=== PATIENT | male | born 1970 | race Caucasian/White ===

== ENCOUNTER 2016-11-02 09:30 | Inpatient (IN) | payer OTHER ==
[2016-11-02] MEDS ORDERED: MIDAZOLAM 2 MG/2 ML VIAL ONE (10:20)
[2016-11-02] MEDS ORDERED: ASPIRIN 325 MG TAB ONE (10:21)
[2016-11-02] MEDS ORDERED: LIDOCAINE 2% INJ 20 MG/ML (20 ML MDV) ONE (10:21)
[2016-11-02] MEDS ORDERED: ASPIRIN 325 MG TAB PO ONE (10:35)
[2016-11-02] MEDS ORDERED: MIDAZOLAM 2 MG/2 ML VIAL IV ONE (10:40)
[2016-11-02] MEDS ORDERED: VERAPAMIL 2.5 MG/ML 2 ML AMP ONE (10:41)
[2016-11-02] MEDS ORDERED: LIDOCAINE 2% INJ 20 MG/ML SQ ONE (10:45)
[2016-11-02] MEDS: VERAPAMIL SYRINGE (5 MG/10 ML) INTRAARTER ONE ×2 (10:49→11:23)
[2016-11-02] MEDS ORDERED: HYDROmorphone 2 MG/ML 1 ML SYRINGE IV ONE (10:50)
[2016-11-02] MEDS ORDERED: HYDROmorphone 2 MG/ML 1 ML SYRINGE ONE (10:50)
[2016-11-02] MEDS ORDERED: BIVALIRUDIN BOLUS 250 MG/50 ML IV ONE (10:58)
[2016-11-02] MEDS ORDERED: BIVALIRUDIN 250 MG in SODIUM CHLORIDE 0.9% 50 ML IV ONE (10:59)
[2016-11-02] MEDS ORDERED: PRASUGREL 10 MG TAB ONE (11:02)
[2016-11-02] MEDS ORDERED: PRASUGREL 10 MG TAB PO ONE (11:03)
[2016-11-02] MEDS: NITROGLYCERIN 1000MCG/10ML SYRINGE INTRACORON ONE ×2 (11:11→11:14)
[2016-11-02] MEDS ORDERED: SODIUM CHLORIDE 0.9% 1,000 ML IV ONE (11:12)
[2016-11-02] MEDS ORDERED: IOHEXOL 350 MG/ML 125ML BOTTLE INJ ONE (11:22)
[2016-11-02] MEDS ORDERED: RX INFO: IV CONTRAST WAS GIVEN 1 EACH MISC MISCELLANE PRN (11:26)
[2016-11-02] MEDS ORDERED: NITROGLYCERIN SL TABS 0.4 MG TAB SUBLINGUAL PRN (11:26)
[2016-11-02] MEDS ORDERED: ZOLPIDEM 5 MG TAB PO PRN (11:26)
[2016-11-02] MEDS ORDERED: ATROPINE SULFATE 0.1 MG/ML 10ML SYRINGE IV PRN (11:26)
[2016-11-02] MEDS ORDERED: MAG HYDROX/AL HYDROX/SIMETH 30 ML CUP PO PRN (11:26)
[2016-11-02] MEDS ORDERED: SODIUM CHLORIDE 0.9% 1,000 ML IV SCH (11:30)
[2016-11-02 11:54] LABS: Glucose,Whole Blood 271 mg/dL (75-99)
[2016-11-02] MEDS ORDERED: LORazepam 2 MG/ML SYRINGE IV PRN ×3 (14:35)
[2016-11-02] MEDS: PANTOPRAZOLE 40 MG/10 ML VIAL IVP SCH (15:06)
[2016-11-02] MEDS: NICOTINE 21MG/24HR PATCH TRANSDERM SCH ×2 (15:06→15:09)
[2016-11-02] MEDS: FOLIC ACID 1 MG TAB PO SCH (15:07)
[2016-11-02] MEDS: MULTIVITAMINS, THERA 1 EACH TAB PO SCH (15:07)
[2016-11-02 15:29] LABS: Appearance,Urine Clear (Clear); Bilirubin,Urine Negative (Negative); Glucose,Urine (UA) 4+ (Negative); Ketones,Urine Negative (Negative); Leukocyte Esterase,Urine Negative (Negative); Nitrite,Urine Negative (Negative); PH, Urine 5.5 (5.0-8.0); Particle Count 1625; Protein,Urine 2+ (Negative); RBC,Urine 6 /hpf (0-5); Specific Gravity,Urine 1.039 (1.001-1.035); Squamous Epithelial Cell,Urine <1 /hpf (0-4); UA Billing (MACRO vs. MICRO) MICRO; Urobilinogen,Urine <2.0 mg/dL (<2.0); WBC,Urine <1 /hpf (0-5)
[2016-11-02 15:54] LABS: Hemoglobin A1C 9.2 % (4.2-6.1)
[2016-11-02 17:18] LABS: Glucose,Whole Blood 455 mg/dL (75-99)
[2016-11-02 17:18] LABS: Glucose,Whole Blood 411 mg/dL (75-99)
[2016-11-02] MEDS: INSULIN LISPRO (humaLOG) 300 UNIT/3 ML VIAL SQ SCH ×2 (17:28→20:25)
[2016-11-02] MEDS: METOPROLOL TARTRATE 25 MG TAB PO SCH (19:01)
--- NOTE | 2016-11-02 19:08 | P.HPIM ---
History of Present Illness H&P Date: 11/02/16 Chief Complaint: Chest pain 46-year-old gentleman with history of diabetes mellitus, significant family medical history, ongoing tobacco use, essential hypertension initially went into [facility] with complaints of chest pain that has been ongoing for the last 3-4 days intermittently. Patient denies having any alleviating or exacerbating factors States that the pain is midsternal location last for a few minutes radiates to his neck does not associate any diaphoresis. Patient was noted to have subtle ST-T wave changes hence was triaged to [facility] for a cardiac catheterization emergently Patient underwent cardiac catheterization via the right radial artery status post PCI PTCA the final report of the catheterization is pending Patient was seen in the intensive care unit denies having headaches blurry vision chest pain difficulty breathing nausea vomiting diarrhea urinary urgency or frequency states that he does not have any pain in his right wrist Review of Systems All systems: negative (Noted in HPI) Past Medical History Past Medical History: Coronary Artery Disease (CAD), Diabetes Mellitus, GERD/ Reflux, Hyperlipidemia, Hypertension, Pneumonia, Renal Disease Additional Past Medical History / Comment(s): NIDDM type II, chronic lumbar pain , colitis, hyperlipidemia-not on RX, athrtitis bilateral hands/wrists, nephrolithiasis. History of Any Multi-Drug Resistant Organisms: None Reported Past Surgical History: Heart Catheterization With Stent, Orthopedic Surgery Additional Past Surgical History / Comment(s): 11/02/16 PCI with stent to RCA, kidney stone basketing, failed L4-L5 fusions x 2, colonoscopy. Past Anesthesia/Blood Transfusion Reactions: No Reported Reaction Date of Last Stent Placement:: 11/02/16 Smoking Status: Current every day smoker - Past Family History Father Family Medical History: Congestive Heart Failure (CHF), Coronary Artery Disease (CAD), CVA/TIA, Myocardial Infarction ([place]) Additional Family Medical History / Comment(s): Father at the age of 63 yrs. Pt doesn't recall age of father's [place]. Mother Family Medical History: Cancer Additional Family Medical History / Comment(s): Mother had multiple cancers. She is living. Medications and Allergies Home Medications Medication Instructions Recorded Confirmed Type HYDROcodone/APAP 10-325MG [[place] 1 - 2 tab PO Q6H PRN 11/02/16 11/02/16 History 10-325] Allergies Allergy/AdvReac Type Severity Reaction Status Date / Time No Known Allergies Allergy Verified 11/02/16 12:31 Physical Exam Vitals: Vital Signs Temp Pulse Resp BP Pulse Ox 11/02/16 19:00 99 20 199/91 99 11/02/16 18:00 92 15 153/85 98 11/02/16 17:00 98 23 153/85 97 11/02/16 16:00 97.6 F 89 26 H 147/92 97 11/02/16 15:00 92 16 164/93 98 11/02/16 14:30 91 18 155/99 98 11/02/16 14:00 92 20 137/84 98 11/02/16 13:30 91 15 146/84 97 11/02/16 13:15 95 21 136/81 96 11/02/16 13:00 90 19 140/92 99 11/02/16 12:45 87 14 139/86 98 11/02/16 12:30 83 20 120/83 99 11/02/16 12:00 80 20 129/87 98 11/02/16 11:50 97.6 F 82 12 129/87 97 Intake and Output 11/02/16 11/02/16 11/02/16 06:59 14:59 22:59 Intake Total 1180 660 Output Total 450 450 Balance 730 210 Intake: IV 640 20 ns 20 Intake, IV Titration 300 400 Amount Sodium Chloride 0.9% 1, 300 400 000 ml @ 100 mls/hr IV . Q10H [facility] Rx#:[id number] Oral 240 240 Output: Urine 450 450 Other: Weight 118 kg Patient Weight 11/03/16 06:59 Weight 118 kg Physical exam Gen. appearance oriented 3 in no distress Neck is supple no JVD Lungs good air entry clear to auscultation no rhonchi or wheezing Heart S1-S2 heard regular rate and rhythm no murmurs appreciated Abdomen is soft nontender no organomegaly bowel sounds are intact Neurologically cranial nerves II-12 grossly intact no focal motor or sensory deficits noted Skin no abnormalities appreciated Results Labs: Abnormal Lab Results - Last 24 Hours (Table) 11/02/16 11/02/16 11/02/16 Range/Units 11:52 14:03 15:10 POC Glucose (mg/dL) 271 H (75-99) mg/dL Hemoglobin A1c 9.2 H (4.2-6.1) % Ur Specific Banks 1.039 H (1.001-1.035) Urine Protein 2+ H (Negative) Urine Glucose (UA) 4+ H (Negative) Urine Blood Small H (Negative) Urine RBC 6 H (0-5) /hpf Urine Opiates Screen Detected H (NotDetected) 11/02/16 11/02/16 Range/Units 17:14 17:16 POC Glucose (mg/dL) 455 H 411 H (75-99) mg/dL Hemoglobin A1c (4.2-6.1) % Ur Specific Banks (1.001-1.035) Urine Protein (Negative) Urine Glucose (UA) (Negative) Urine Blood (Negative) Urine RBC (0-5) /hpf Urine Opiates Screen (NotDetected) Thrombosis Risk Factor Assmnt - Choose All That Apply Any of the Below Risk Factors Present?: Yes Each Factor Represents 1 point: Age 41-60 years, Obesity (BMI >25) Other Risk Factors: No Other congenital or acquired thrombophilia - If yes, enter type in comment: No Thrombosis Risk Factor Assessment Total Risk Factor Score: 2 Thrombosis Risk Factor Assessment Level: Low Risk Assessment and Plan Plan: #1 acute [place] #2 diabetes mellitus type 2 uncontrolled #3 ongoing tobacco use #4 hypertension Plan Hold off on oral anti-hyperglycemics will start the patient on 20 units of Levemir with NovoLog sliding scale Dual antiplatelet therapy Beta kayla and lisinopril will be started Continue monitoring the patient in the intensive care unit per STEMI protocol Vascular checks Blood pressure control
[2016-11-02 20:23] LABS: Glucose,Whole Blood 348 mg/dL (75-99)
[2016-11-02] MEDS: INSULIN DETEMIR 100 UNIT/ML 10 ML VIAL SQ SCH (20:24)
[2016-11-02] MEDS: THIAMINE 100 MG TAB PO SCH (20:24)
[2016-11-02] MEDS: ATORVASTATIN 80 MG TAB PO SCH (20:24)
--- NOTE | 2016-11-02 21:57 | CC ---
DATE OF SERVICE: 11/02/2016 Performing physician: Brock Mallory M.D., door technician. PROCEDURE PERFORMED: 1. Selective right and left coronary angiogram. 2. Successful stenting of the mid right coronary artery using a 3.0 x 23 mm Xience JESÚS with a good angiographic results. 3. Left heart catheterization. 4. Left ventriculography. INDICATION: This is a pleasant 46-year-old gentleman who is diabetic as well as a smoker who presented to the emergency room at [facility] complaining of chest discomfort. The EKG concerning for elevation MRI inferiorly. He was brought into to [facility] to undergo a heart catheterization. Approach: Right radial artery. COMPLICATIONS: None. Level of sedation: Moderate with sedation length of 37 minutes. PROCEDURE DESCRIPTION: After obtaining an informed consent, the patient was brought to the cardiac solar lab technician. Right radial artery was cannulated using micropuncture technique. Micropuncture wire passed easily. Then I placed a 6 Arabic sheath in the right radial artery. Subsequently, I did gave the patient 2 mg and 3000 units of heparin IV. Also it gives to give 2 mg Verapamil IA without heparin. After that, I did selective right and left coronary angiogram using JR4 and JL 3.5 catheters. After that, I did intervene on the RCA. Please see separate paragraph for that. After that, I did left heart catheterization, left ventriculography using a 6 Arabic pigtail catheter. The procedure was completed without any complication. SELECTIVE CORONARY ANGIOGRAM: RIGHT CORONARY ARTERY: The right coronary artery is a large-caliber vessel and it is a dominant vessel. The proximal RCA appeared to have mild disease only. The mid RCA has a lesion that seems to be in the range of 90% with a thrombus which likely represents a plaque rupture and thrombus formation. The distal RCA has another lesion, seems to be in the range of 70% but after the intervention it opened up a little better. The RCA bifurcates into PDA and PLV branches. The PLV branch appeared to have severe disease in the proximal portion and the PLV branch appeared to have also severe disease in the proximal portion but does not feed a large territory. LEFT MAIN: The left main is angiographically normal. It has mild disease only. It bifurcates into the left circumflex and left anterior descending artery. CIRCUMFLEX CORONARY ARTERY: The left circumflex is a large-caliber vessel and it is a nondominant vessel. The proximal left circumflex appeared to be angiographically normal and gives rises into the first obtuse marginal branch, which is an intermediate caliber vessel with severe disease in the proximal portion. The mid left circumflex has a long tubular lesion, seems to be in the range of 70% to 80%. It gives rises into the second obtuse marginal branch, which seems to be angiographically normal. The circumflex distally appeared to be angiographically normal. LEFT ANTERIOR DESCENDING CORONARY ARTERY: The proximal LAD appeared to have mild disease only. The mid LAD has another tubular lesion that seems to be in the range of 60%. This is by the bifurcation of the large diagonal branch, which seems to be angiographically normally. The LAD distally appeared to be angiographically normal. HEMODYNAMICS: The left ventricular end-diastolic pressure was 18 mmHg. No gradient was identified across the aortic valve. Left ventriculogram was performed in the MALONEY projection and using a power injection. The left ventricular systolic function seems to be mildly impaired with an ejection fraction around 40 to 45% with mid inferior and basal inferior hypokinesia. PCI of the RCA: Anticoagulation was initiated using Angiomax. Subsequently, I took JR4 guide and RCA was engaged. A Whisper wire was used to wire the right coronary artery. Subsequently, I did aspiration thrombectomy using an [place] catheter. After that, I did balloon angioplasty using 2.5 x 12 mm balloon and after that, I did deploy 3.0 x 23 mm Xience JESÚS, where the stent was positioned under fluoroscopy guidance and it was deployed under 14 atmospheres for 20 seconds. The following angiogram showed good angiographic result without perforation and without dissection with a good flow. CONCLUSION: 1. Acute inferior ST elevation myocardial infarction. 2. Critical disease involving the mid right coronary artery with a plaque rupture and thrombus formation. 3. Mild disease involving the left main coronary artery. 4. Severe disease involving the mid left circumflex coronary artery. 5. Intermediate disease involving the LAD. 6. Successful stenting of the mid RCA using 3.0 x 23 mm Xience JESÚS with a good angiographic results. 7. Mildly impaired left ventricular function with an ejection fraction between 40 to 45% with mid inferior and basal inferior hypokinesia. POSTPROCEDURE MANAGEMENT: 1. PCI and stenting of the mid left circumflex. 2. Fractional flow reserve of the LAD as well. 3. Angiogram to assess the PLV branch of the right coronary artery which has an intermediate to severe lesion as well. 4. Dual antiplatelet therapy along with anti-ischemic medications and statin. 5. An echocardiogram with Doppler.
[2016-11-03 04:15] LABS: Basophils % (A) 0 %; CHCM 34.9; Eosinophils # (A) 0.2 k/uL (0-0.7); Eosinophils % (A) 3 %; HCT 44.5 % (39.0-53.0); HDW 3.02; HGB 15.1 gm/dL (13.0-17.5); Luc # (Auto) 0.18; Luc % (Auto) 3; Lymphocytes # (A) 1.2 k/uL (1.0-4.8); Lymphocytes % (A) 19 %; MCH 33.2 pg (25.0-35.0); MCHC 33.9 g/dL (31.0-37.0); MCV 97.9 fL (80.0-100.0); Mean Platelet Volume 7.7; Monocytes # (A) 0.5 k/uL (0-1.0); Monocytes % (A) 7 %; Neutrophils # (A) 4.2 k/uL (1.3-7.7); Neutrophils % (A) 67 %; RBC 4.55 m/uL (4.30-5.90); RDW 13.9 % (11.5-15.5); WBC 6.3 k/uL (3.8-10.6); WBC (Perox) 6.39
[2016-11-03 04:25] LABS: Anion Gap 9 mmol/L; Blood Urea Nitrogen 17 mg/dL (9-20); Calcium 8.6 mg/dL (8.4-10.2); Carbon Dioxide 23 mmol/L (22-30); Chloride 103 mmol/L (98-107); Glucose 273 mg/dL (74-99); Magnesium 1.8 mg/dL (1.6-2.3); Non-African American GFR(MDRD) >60 (>60 ml/min/1.73 sqM); Phosphorous 3.5 mg/dL (2.5-4.5); Sodium 135 mmol/L (137-145)
[2016-11-03 07:40] LABS: Glucose,Whole Blood 224 mg/dL (75-99)
[2016-11-03] MEDS: PANTOPRAZOLE 40 MG/10 ML VIAL IVP SCH (07:59)
[2016-11-03] MEDS: METOPROLOL TARTRATE 25 MG TAB PO SCH ×2 (07:59→20:35)
[2016-11-03] MEDS: NICOTINE 21MG/24HR PATCH TRANSDERM SCH ×2 (07:59→08:08)
[2016-11-03] MEDS: MULTIVITAMINS, THERA 1 EACH TAB PO SCH (08:00)
[2016-11-03] MEDS: LISINOPRIL 10 MG TAB PO SCH (08:00)
[2016-11-03] MEDS: ASPIRIN 325 MG TAB PO SCH (08:00)
[2016-11-03] MEDS: FOLIC ACID 1 MG TAB PO SCH (08:00)
[2016-11-03] MEDS: PRASUGREL 10 MG TAB PO SCH (08:00)
[2016-11-03] MEDS: INSULIN LISPRO (humaLOG) 300 UNIT/3 ML VIAL SQ SCH ×4 (08:03→21:13)
[2016-11-03] MEDS: THIAMINE 100 MG TAB PO SCH ×2 (08:03→20:35)
[2016-11-03] MEDS: HYDROcodone/APAP 10-325MG 1 EACH TAB PO PRN ×3 (08:12→20:38)
--- NOTE | 2016-11-03 08:48 | P.CRDCN ---
History of Present Illness Consult date: 11/03/16 Chief complaint: chest pain History of present illness: This is a pleasant 46-year-old gentleman with a past medical history significant for diabetes as well as significant history of smoking presented to the emergency room and [facility] complaining of chest discomfort. The patient was in his usual state of health until about 2 week when he started experiencing intermittent episodes of chest pressure. The day he presented to the hospital the chest pressure woke him up from sleep.A seated symptoms of shortness of breath. No sweating. No dizziness or lightheadedness or syncope. The EKG at the ER showed sinus rhythm with about half millimeter inferior ST elevation [place]. Subsequently the patient was transferred emergently to the cardiac cytogenetics laboratory manager where he underwent an emergent heart catheterization which showed critical disease involving the mid RCA with a plaque rupture and thrombus formation as well as severe disease involving the mid left circumflex and also intermediate disease involving the mid LAD. He underwent successful stenting of the mid RCA with a good angiographic results and without any complication. The procedure was performed from the right radial artery. The patient need to have a PCI of the left circumflex and also an FFR of the LAD in the next few days. Past Medical History Past Medical History: Coronary Artery Disease (CAD), Diabetes Mellitus, GERD/ Reflux, Hyperlipidemia, Hypertension, Pneumonia, Renal Disease Additional Past Medical History / Comment(s): NIDDM type II, chronic lumbar pain , colitis, hyperlipidemia-not on RX, athrtitis bilateral hands/wrists, nephrolithiasis. History of Any Multi-Drug Resistant Organisms: None Reported Past Surgical History: Heart Catheterization With Stent, Orthopedic Surgery Additional Past Surgical History / Comment(s): 11/02/16 PCI with stent to RCA, kidney stone basketing, failed L4-L5 fusions x 2, colonoscopy. Past Anesthesia/Blood Transfusion Reactions: No Reported Reaction Date of Last Stent Placement:: 11/02/16 Smoking Status: Current every day smoker - Past Family History Father Family Medical History: Congestive Heart Failure (CHF), Coronary Artery Disease (CAD), CVA/TIA, Myocardial Infarction ([place]) Additional Family Medical History / Comment(s): Father at the age of 63 yrs. Pt doesn't recall age of father's [place]. Mother Family Medical History: Cancer Additional Family Medical History / Comment(s): Mother had multiple cancers. She is living. Medications and Allergies Home Medications Medication Instructions Recorded Confirmed Type HYDROcodone/APAP 10-325MG [White 1 - 2 tab PO Q6H PRN 11/02/16 11/02/16 History 10-325] Allergies Allergy/AdvReac Type Severity Reaction Status Date / Time No Known Allergies Allergy Verified 11/02/16 12:31 Physical Exam Vitals: Vital Signs Temp Pulse Resp BP Pulse Ox 11/03/16 07:26 97 11/03/16 07:00 84 19 172/93 97 11/03/16 06:00 79 21 177/96 98 11/03/16 05:00 83 16 160/101 96 11/03/16 04:00 97.4 F L 81 18 169/102 96 11/03/16 03:57 18 11/03/16 03:00 78 18 151/87 97 11/03/16 02:00 81 21 152/91 96 11/03/16 01:00 90 21 152/88 96 11/03/16 00:00 98.3 F 82 22 149/86 96 11/02/16 23:00 78 18 165/97 97 11/02/16 22:00 76 18 150/90 97 11/02/16 21:00 84 24 164/93 96 11/02/16 20:00 98 F 89 19 163/87 98 11/02/16 19:00 99 20 199/91 99 11/02/16 18:00 92 15 153/85 98 11/02/16 17:00 98 23 153/85 97 11/02/16 16:00 97.6 F 89 26 H 147/92 97 11/02/16 15:00 92 16 164/93 98 11/02/16 14:30 91 18 155/99 98 11/02/16 14:00 92 20 137/84 98 11/02/16 13:30 91 15 146/84 97 11/02/16 13:15 95 21 136/81 96 11/02/16 13:00 90 19 140/92 99 11/02/16 12:45 87 14 139/86 98 11/02/16 12:30 83 20 120/83 99 11/02/16 12:00 80 20 129/87 98 11/02/16 11:50 97.6 F 82 12 129/87 97 Intake and Output 11/02/16 11/03/16 11/03/16 22:59 06:59 14:59 Intake Total 795 175 Output Total 950 1325 Balance -155 -1150 Intake: IV 60 ns 60 Intake, IV Titration 400 Amount Sodium Chloride 0.9% 1, 400 000 ml @ 100 mls/hr IV . Q10H [facility] Rx#:[id number] Oral 335 175 Output: Urine 950 1325 Other: # Voids 0 Weight 112.2 kg - Constitutional General appearance: no acute distress - Respiratory Respiratory: bilateral: CTA - Cardiovascular Rhythm: regular Heart sounds: normal: S1, S2 Results 11/03/16 03:47 11/03/16 03:47 CBC 11/03/16 Range/Units 03:47 WBC 6.3 (3.8-10.6) k/uL RBC 4.55 (4.30-5.90) m/uL Hgb 15.1 (13.0-17.5) gm/dL Hct 44.5 (39.0-53.0) % Plt Count 132 L (150-450) k/uL Comprehensive Metabolic Panel 11/03/16 Range/Units 03:47 Sodium 135 L (137-145) mmol/L Potassium 4.0 (3.5-5.1) mmol/L Chloride 103 (98-107) mmol/L Carbon Dioxide 23 (22-30) mmol/L BUN 17 (9-20) mg/dL Creatinine 0.70 (0.66-1.25) mg/dL Glucose 273 H (74-99) mg/dL Calcium 8.6 (8.4-10.2) mg/dL Current Medications Generic Name Dose Route Start Last Admin Trade Name Coltq PRN Reason Stop Dose Admin Hydrocodone Bitart/Acetaminophen 1 each 11/03/16 07:57 11/03/16 08:12 White 10 PO 1 each Q6H PRN Administration Pain Al Hydroxide/Mg Hydroxide 30 ml 11/02/16 11:26 Maalox PO Q4HR PRN Heartburn Aspirin 325 mg 11/03/16 09:00 11/03/16 08:00 Aspirin PO 325 mg DAILY ANDRE Administration Atorvastatin Calcium 80 mg 11/02/16 21:00 11/02/16 20:24 Lipitor PO 80 mg HS ANDRE Administration Atropine Sulfate 0.5 mg 11/02/16 11:26 Atropine IV ONCE PRN Symptomatic Bradycardia Folic Acid 1 mg 11/02/16 14:33 11/03/16 08:00 Folic Acid PO 1 mg DAILY@1200 ANDRE Administration Insulin Detemir 20 unit 11/02/16 21:00 11/02/16 20:24 Levemir SQ 20 unit HS ANDRE Administration Insulin Human Lispro 0 unit 11/02/16 17:30 11/03/16 08:03 Humalog SQ 4 unit ACHS ANDRE Administration Protocol Lisinopril 10 mg 11/03/16 09:00 11/03/16 08:00 Zestril PO 10 mg DAILY ANDRE Administration Lorazepam 1 mg 11/02/16 14:35 Ativan IV Q2HR PRN CIWA 8 or 9 Lorazepam 1 mg 11/02/16 14:35 Ativan IV Q1HR PRN CIWA 10 to 15 Lorazepam 2 mg 11/02/16 14:35 Ativan IV Q1HR PRN CIWA 16 or higher Metoprolol Tartrate 25 mg 11/02/16 21:00 11/03/16 07:59 Lopressor PO 25 mg BID ANDRE Administration Miscellaneous Information 1 each 11/02/16 11:26 Rx Info: Iv Contrast Was Given MISCELLANE 11/04/16 11:26 DAILY PRN Per Protocol Multivitamins 1 each 11/02/16 14:34 11/03/16 08:00 Theragran PO 1 each DAILY@1200 [facility] Administration Nicotine 1 patch 11/02/16 14:45 11/03/16 08:08 Habitrol 21mg/24hr Patch TRANSDERM Not Given DAILY [facility] Nitroglycerin 0.4 mg 11/02/16 11:26 Nitrostat SUBLINGUAL Q5M PRN Chest Pain Pantoprazole Sodium 40 mg 11/02/16 14:45 11/03/16 07:59 Protonix IVP 40 mg DAILY [facility] Administration Prasugrel 10 mg 11/03/16 09:00 11/03/16 08:00 Effient PO 10 mg DAILY [facility] Administration Thiamine HCl 100 mg 11/02/16 21:00 11/03/16 08:03 Vitamin B-1 PO 100 mg BID [facility] Administration Zolpidem Tartrate 5 mg 11/02/16 11:26 Ambien PO HS PRN Insomnia Intake and Output 11/02/16 11/03/16 11/03/16 22:59 06:59 14:59 Intake Total 795 175 Output Total 950 1325 Balance -155 -1150 Intake: IV 60 ns 60 Intake, IV Titration 400 Amount Sodium Chloride 0.9% 1, 400 000 ml @ 100 mls/hr IV . Q10H [facility] Rx#:[id number] Oral 335 175 Output: Urine 950 1325 Other: # Voids 0 Weight 112.2 kg 11/03/16 03:47 11/03/16 03:47 Assessment and Plan Plan: Assessment Acute inferior ST elevation [place] Significant history of smoking Uncontrolled diabetes Plan The patient underwent successful stenting of the RCA He needs to have a PCI of the left circumflex and FFR of the LAD Follow-up with the patient
[2016-11-03 12:16] LABS: Glucose,Whole Blood 241 mg/dL (75-99)
[2016-11-03 17:03] LABS: Glucose,Whole Blood 223 mg/dL (75-99)
--- NOTE | 2016-11-03 17:23 | P.PN ---
Subjective 46-year-old gentleman with history of diabetes mellitus, significant family medical history, ongoing tobacco use, essential hypertension initially went into [facility] with complaints of chest pain that has been ongoing for the last 3-4 days intermittently. Patient denies having any alleviating or exacerbating factors States that the pain is midsternal location last for a few minutes radiates to his neck does not associate any diaphoresis. Patient was noted to have subtle ST-T wave changes hence was triaged to [facility] for a cardiac catheterization emergently Patient underwent cardiac catheterization via the right radial artery status post PCI PTCA the final report of the catheterization is pending Patient was seen in the intensive care unit denies having headaches blurry vision chest pain difficulty breathing nausea vomiting diarrhea urinary urgency or frequency states that he does not have any pain in his right wrist 11/03/2016 Patient denies having any headaches blurry vision nausea vomiting chest pain. No numbness reported on the right fingers No over night abnormalities reported Objective - Vital Signs Vital signs: Vital Signs Temp 98.1 F 11/03/16 16:00 Pulse 78 11/03/16 16:00 Resp 66 H 11/03/16 16:00 BP 142/83 11/03/16 16:00 Pulse Ox 97 11/03/16 16:00 Intake & Output 11/02/16 11/03/16 11/03/16 18:59 06:59 18:59 Intake Total 1820 330 425 Output Total 900 1825 Balance 920 -1495 425 Weight 118 kg 112.2 kg 112.2 kg Intake: IV 640 60 ns 60 Intake, IV Titration 700 Amount Sodium Chloride 0.9% 1, 700 000 ml @ 100 mls/hr IV . Q10H [facility] Rx#:[id number] Oral 480 270 425 Output: Urine 900 1825 Other: # Voids 0 1 - Exam Physical exam Gen. appearance oriented 3 in no distress Neck is supple no JVD Lungs good air entry clear to auscultation no rhonchi or wheezing Heart S1-S2 heard regular rate and rhythm no murmurs appreciated Abdomen is soft nontender no organomegaly bowel sounds are intact Neurologically cranial nerves II-12 grossly intact no focal motor or sensory deficits noted Skin no abnormalities appreciated - Labs CBC & Chem 7: 11/03/16 03:47 11/03/16 03:47 Labs: Abnormal Lab Results - Last 24 Hours (Table) 11/02/16 11/02/16 11/03/16 Range/Units 14:03 20:22 03:47 Plt Count 132 L (150-450) k/uL Sodium (137-145) mmol/L Glucose (74-99) mg/dL POC Glucose (mg/dL) 348 H (75-99) mg/dL Hemoglobin A1c 9.2 H (4.2-6.1) % 11/03/16 11/03/16 11/03/16 Range/Units 03:47 07:37 12:14 Plt Count (150-450) k/uL Sodium 135 L (137-145) mmol/L Glucose 273 H (74-99) mg/dL POC Glucose (mg/dL) 224 H 241 H (75-99) mg/dL Hemoglobin A1c (4.2-6.1) % 11/03/16 Range/Units 17:00 Plt Count (150-450) k/uL Sodium (137-145) mmol/L Glucose (74-99) mg/dL POC Glucose (mg/dL) 223 H (75-99) mg/dL Hemoglobin A1c (4.2-6.1) % Assessment and Plan Plan: #1 acute [place], inferior #2 diabetes mellitus type 2 uncontrolled #3 ongoing tobacco use #4 hypertension Plan HbA1c is reviewed. Discussed regarding use only insulin on discharge patient would like to be on oral anti-hyperglycemics apparently has been noncompliant prior to admission Patient is 24 hours after contrast use renal function appears to be stable hence metformin will be restarted Dual antiplatelet therapy Beta kayla and lisinopril will be started Continue monitoring the patient in the intensive care unit per STEMI protocol Vascular checks Apparently needs to be taken back for FFR and revision of the left coronaries as well Blood pressure control
[2016-11-03] MEDS: metFORMIN 500 MG TAB PO SCH (17:35)
[2016-11-03] MEDS: ATORVASTATIN 80 MG TAB PO SCH (20:35)
[2016-11-03 20:59] LABS: Glucose,Whole Blood 262 mg/dL (75-99)
[2016-11-03] MEDS: INSULIN DETEMIR 100 UNIT/ML 10 ML VIAL SQ SCH (21:13)
[2016-11-04] MEDS: HYDROcodone/APAP 10-325MG 1 EACH TAB PO PRN ×3 (04:34→17:27)
[2016-11-04 06:05] LABS: Glucose,Whole Blood 370 mg/dL (75-99)
[2016-11-04 06:22] LABS: Magnesium 1.8 mg/dL (1.6-2.3)
[2016-11-04] MEDS: INSULIN LISPRO (humaLOG) 300 UNIT/3 ML VIAL SQ SCH ×4 (06:45→20:57)
[2016-11-04] MEDS: metFORMIN 500 MG TAB PO SCH (06:45)
[2016-11-04] MEDS: PRASUGREL 10 MG TAB PO SCH (08:46)
[2016-11-04] MEDS: ASPIRIN 325 MG TAB PO SCH (08:47)
[2016-11-04] MEDS: LISINOPRIL 10 MG TAB PO SCH (08:47)
[2016-11-04] MEDS: METOPROLOL TARTRATE 25 MG TAB PO SCH ×2 (08:47→20:45)
[2016-11-04] MEDS: THIAMINE 100 MG TAB PO SCH ×2 (08:47→20:45)
[2016-11-04] MEDS: PANTOPRAZOLE 40 MG/10 ML VIAL IVP SCH (08:48)
[2016-11-04] MEDS: NICOTINE 21MG/24HR PATCH TRANSDERM SCH (08:48)
--- NOTE | 2016-11-04 09:50 | ECHOF ---
Referral Reason:stemi MEASUREMENTS -------- HEIGHT: 175.3 cm WEIGHT: 117.9 kg BP: 146/84 RVIDd: 3.1 cm (< 3.3) IVSd: 1.5 cm (0.6 - 1.1) LVIDd: 4.7 cm (3.9 - 5.3) LVPWd: 1.5 cm (0.6 - 1.1) IVSs: 1.9 cm LVIDs: 3.3 cm LVPWs: 1.4 cm LA Diam: 4.5 cm (2.7 - 3.8) Ao Diam: 2.8 cm (2.0 - 3.7) AV Cusp: 1.4 cm (1.5 - 2.6) LA Diam: 4.2 cm (2.7 - 3.8) MV EXCURSION: 22.213 mm (> 18.000) MV EF SLOPE: 91 mm/s (70 - 150) EPSS: 0.8 cm MV E Flaco: 0.88 m/s MV DecT: 235 ms MV A Flaco: 1.07 m/s MV E/A Ratio: 0.83 RAP: 5.00 mmHg RVSP: 17.66 mmHg FINDINGS -------- Sinus rhythm. Morbid Obesity This was a techncally difficult study with suboptimal views, , Definity utilized for enhancement of images. There is moderate concentric left ventricular hypertrophy. Overall left ventricular systolic function is low-normal with, an EF between 50 - 55 %. Inferior Hypokinesis The right ventricle is normal in size. The right atrial size is normal. 1.5MG OF DEFINITY UTLIZED: 2 OR MORE WALL SEGMENTS NOT VISUALIZED. There is mild aortic valve sclerosis. There is no evidence of aortic regurgitation. Mild mitral annular calcification present. Mild mitral regurgitation is present. Mild tricuspid regurgitation present. There is no evidence of pulmonary hypertension. The right ventricular systolic pressure, as measured by Doppler, is 17.66mmHg. There is no pulmonic regurgitation present. The aortic root size is normal. There is no pericardial effusion. CONCLUSIONS -------- 1. Morbid Obesity 2. Mild tricuspid regurgitation present. 3. There is no evidence of pulmonary hypertension. 4. The right ventricular systolic pressure, as measured by Doppler, is 17.66mmHg. 5. There is no pulmonic regurgitation present. 6. The aortic root size is normal. 7. There is no pericardial effusion. 8. This was a techncally difficult study with suboptimal views, , Definity utilized for enhancement of images. 9. There is moderate concentric left ventricular hypertrophy. 10. Overall left ventricular systolic function is low-normal with, an EF between 50 - 55 %. 11. Inferior Hypokinesis 12. 1.5MG OF DEFINITY UTLIZED: 2 OR MORE WALL SEGMENTS NOT VISUALIZED. 13. There is mild aortic valve sclerosis. 14. Mild mitral annular calcification present. 15. Mild mitral regurgitation is present. DURABILITY ENGINEER: Ginette Aguilar RDCS
[2016-11-04] MEDS: FOLIC ACID 1 MG TAB PO SCH (10:58)
[2016-11-04] MEDS: MULTIVITAMINS, THERA 1 EACH TAB PO SCH (10:58)
[2016-11-04 11:37] LABS: Glucose,Whole Blood 272 mg/dL (75-99)
--- NOTE | 2016-11-04 16:07 | P.PN ---
Subjective Principal diagnosis: STEMI This is a 46-year-old gentleman who presented to the hospital with an inferior ST elevation myocardial infarction he was taken to the cardiac catheterization lab by Dr. Pendleton where he underwent successful stenting of the mid right coronary artery. Patient was also found to have mild disease in the left main with severe disease involving the mid circumflex and intermediate disease in the LAD. Mildly impaired left ventricular systolic function with an ejection fraction of 40-45%. The plan was to discharge the patient and bring him back for stenting of the circumflex as well as FFR of the LAD. Patient did have a mild episode of chest discomfort yesterday and again this morning. No acute EKG changes. Blood pressure 110/60 with a heart rate in the 70s, respirations 18. No labs were drawn today. Patient is quite concerned about going home and coming back to have his arteries fixed. He is requesting to have them done while he was hospital. We will reach out Dr. Pendleton and discuss this with him. For today the patient will be encouraged to be up ambulating in the moon to see if he has any further symptoms. Objective - Vital Signs Vital signs: Vital Signs Temp 98.1 F 11/04/16 11:43 Pulse 75 11/04/16 11:43 Resp 16 11/04/16 11:43 BP 109/66 11/04/16 11:43 Pulse Ox 98 11/04/16 11:43 Intake & Output 11/03/16 11/04/16 11/04/16 18:59 06:59 18:59 Intake Total 725 480 Balance 725 480 Weight 112.2 kg 111.8 kg Intake: Oral 725 480 Other: # Voids 1 2 2 # Bowel Movements 0 - Exam PHYSICAL EXAMINATION: HEENT: Head is atraumatic, normocephalic. Pupils equal, round. Neck is supple. There is no elevated jugular venous pressure. HEART EXAMINATION: Heart S1, S2 normal. No murmur or gallop heard. CHEST EXAMINATION: Lungs are clear to auscultation and precussion. No chest wall tenderness is noted on palpation or with deep breathing. ABDOMEN: Soft, nontender. Bowel sounds are heard. No organomegaly noted. EXTREMITIES: 2+ peripheral pulses with no evidence of peripheral edema and no calf tenderness noted. NEUROLOGIC patient is awake, alert and oriented -3. . - Labs CBC & Chem 7: 11/03/16 03:47 11/03/16 03:47 Labs: Abnormal Lab Results - Last 24 Hours (Table) 11/03/16 11/03/16 11/04/16 Range/Units 17:00 20:56 06:04 POC Glucose (mg/dL) 223 H 262 H 370 H (75-99) mg/dL 11/04/16 Range/Units 11:23 POC Glucose (mg/dL) 272 H (75-99) mg/dL Assessment and Plan (1) ST elevation myocardial infarction (STEMI) of inferior wall Status: Acute (2) Diabetes Status: Acute (3) Hyperlipemia Status: Acute (4) Nicotine dependence Status: Acute Plan: Cardiology's perspective, we will continue the patient on his current medications. We will also discuss with Dr. Pendleton regarding timing of his stenting of the circumflex and FFR of the LAD. DNP note has been reviewed, I agree with a documented findings and plan of care. Patient was seen and examined.
[2016-11-04] MEDS ORDERED: ALPRAZolam 0.5 MG TAB PO PRN (16:14)
[2016-11-04] MEDS ORDERED: NITROGLYCERIN SL TABS 0.4 MG TAB SUBLINGUAL PRN (16:14)
[2016-11-04] MEDS ORDERED: ASPIRIN 325 MG TAB PO STA (16:14)
[2016-11-04] MEDS ORDERED: ATORVASTATIN 80 MG TAB PO STA (16:14)
[2016-11-04] MEDS ORDERED: ALPRAZolam 0.25 MG TAB PO PRN (16:14)
[2016-11-04] MEDS ORDERED: SODIUM CHLORIDE 0.9% 1,000 ML in EMPTY BAG 1 BAG IV ONE (16:14)
[2016-11-04 17:10] LABS: Glucose,Whole Blood 201 mg/dL (75-99)
--- NOTE | 2016-11-04 17:30 | P.PN ---
Subjective 46-year-old gentleman with history of diabetes mellitus, significant family medical history, ongoing tobacco use, essential hypertension initially went into [facility] with complaints of chest pain that has been ongoing for the last 3-4 days intermittently. Patient denies having any alleviating or exacerbating factors States that the pain is midsternal location last for a few minutes radiates to his neck does not associate any diaphoresis. Patient was noted to have subtle ST-T wave changes hence was triaged to [facility] for a cardiac catheterization emergently Patient underwent cardiac catheterization via the right radial artery status post PCI PTCA the final report of the catheterization is pending Patient was seen in the intensive care unit denies having headaches blurry vision chest pain difficulty breathing nausea vomiting diarrhea urinary urgency or frequency states that he does not have any pain in his right wrist 11/03/2016 Patient denies having any headaches blurry vision nausea vomiting chest pain. No numbness reported on the right fingers No over night abnormalities reported 11/04/2016 No new overnight events Denies any chest pain difficulty breathing nausea vomiting diarrhea no abnormal cardiac rhythms are reported Objective - Vital Signs Vital signs: Vital Signs Temp 98.1 F 11/04/16 11:43 Pulse 75 11/04/16 11:43 Resp 16 11/04/16 11:43 BP 109/66 11/04/16 11:43 Pulse Ox 98 11/04/16 11:43 Intake & Output 11/03/16 11/04/16 11/04/16 18:59 06:59 18:59 Intake Total 725 480 Balance 725 480 Weight 112.2 kg 111.8 kg Intake: Oral 725 480 Other: # Voids 1 2 2 # Bowel Movements 0 - Exam Physical exam Gen. appearance oriented 3 in no distress Neck is supple no JVD Lungs good air entry clear to auscultation no rhonchi or wheezing Heart S1-S2 heard regular rate and rhythm no murmurs appreciated Abdomen is soft nontender no organomegaly bowel sounds are intact Neurologically cranial nerves II-12 grossly intact no focal motor or sensory deficits noted Skin no abnormalities appreciated - Labs CBC & Chem 7: 11/03/16 03:47 11/03/16 03:47 Labs: Abnormal Lab Results - Last 24 Hours (Table) 11/03/16 11/04/16 11/04/16 Range/Units 20:56 06:04 11:23 POC Glucose (mg/dL) 262 H 370 H 272 H (75-99) mg/dL 11/04/16 Range/Units 16:50 POC Glucose (mg/dL) 201 H (75-99) mg/dL Assessment and Plan Plan: #1 acute [place], inferior #2 diabetes mellitus type 2 uncontrolled #3 ongoing tobacco use #4 hypertension Plan Hold Metformin in light of possibility of exposure to contrast again increase Levemir to 30 units Dual antiplatelet therapy Beta kayla and ACEI Continue monitoring the patient in the intensive care unit per STEMI protocol Vascular checks Continue ongoing care will defer to intervention cardiology regards to take back for left coronary revascularization
[2016-11-04] MEDS: ATORVASTATIN 80 MG TAB PO SCH (20:45)
[2016-11-04] MEDS: INSULIN DETEMIR 100 UNIT/ML 10 ML VIAL SQ SCH (20:57)
[2016-11-04 21:03] LABS: Glucose,Whole Blood 284 mg/dL (75-99)
[2016-11-05 05:55] LABS: Glucose,Whole Blood 182 mg/dL (75-99)
[2016-11-05] MEDS: INSULIN LISPRO (humaLOG) 300 UNIT/3 ML VIAL SQ SCH ×4 (06:12→21:37)
[2016-11-05] MEDS: LISINOPRIL 10 MG TAB PO SCH (06:20)
[2016-11-05] MEDS: PANTOPRAZOLE 40 MG TABLET PO SCH (06:20)
[2016-11-05] MEDS: METOPROLOL TARTRATE 25 MG TAB PO SCH ×2 (06:21→19:47)
[2016-11-05] MEDS: ASPIRIN 325 MG TAB PO SCH (06:21)
[2016-11-05] MEDS: PRASUGREL 10 MG TAB PO SCH (06:21)
[2016-11-05 06:48] LABS: Magnesium 1.8 mg/dL (1.6-2.3); Phosphorous 3.6 mg/dL (2.5-4.5)
[2016-11-05] MEDS: THIAMINE 100 MG TAB PO SCH ×2 (07:44→19:47)
[2016-11-05] MEDS: NICOTINE 21MG/24HR PATCH TRANSDERM SCH (07:46)
[2016-11-05 08:08] VITALS: BMI 37.0
[2016-11-05 11:50] LABS: Glucose,Whole Blood 194 mg/dL (75-99)
[2016-11-05] MEDS: HYDROcodone/APAP 10-325MG 1 EACH TAB PO PRN ×2 (11:55→19:48)
[2016-11-05] MEDS: MULTIVITAMINS, THERA 1 EACH TAB PO SCH (11:55)
[2016-11-05] MEDS: FOLIC ACID 1 MG TAB PO SCH (11:55)
[2016-11-05 16:46] LABS: Glucose,Whole Blood 238 mg/dL (75-99)
[2016-11-05] MEDS: ATORVASTATIN 80 MG TAB PO SCH (19:48)
[2016-11-05 21:21] LABS: Glucose,Whole Blood 265 mg/dL (75-99)
[2016-11-05] MEDS: INSULIN DETEMIR 100 UNIT/ML 10 ML VIAL SQ SCH (21:36)
[2016-11-06 06:02] LABS: Glucose,Whole Blood 186 mg/dL (75-99)
[2016-11-06] MEDS: PANTOPRAZOLE 40 MG TABLET PO SCH (06:17)
[2016-11-06] MEDS: ASPIRIN 325 MG TAB PO SCH (06:17)
[2016-11-06] MEDS: LISINOPRIL 10 MG TAB PO SCH (06:17)
[2016-11-06] MEDS: THIAMINE 100 MG TAB PO SCH ×2 (06:18→21:09)
[2016-11-06] MEDS: METOPROLOL TARTRATE 25 MG TAB PO SCH ×2 (06:18→21:09)
[2016-11-06] MEDS: PRASUGREL 10 MG TAB PO SCH (06:18)
[2016-11-06] MEDS: INSULIN LISPRO (humaLOG) 300 UNIT/3 ML VIAL SQ SCH ×4 (06:19→21:09)
[2016-11-06 06:35] LABS: CH 33.1; CHCM 34.5; HCT 40.8 % (39.0-53.0); HDW 3.04; HGB 14.2 gm/dL (13.0-17.5); MCH 33.7 pg (25.0-35.0); MCHC 34.8 g/dL (31.0-37.0); MCV 96.7 fL (80.0-100.0); Mean Platelet Volume 7.9; RBC 4.22 m/uL (4.30-5.90); RDW 13.5 % (11.5-15.5); WBC 6.3 k/uL (3.8-10.6)
[2016-11-06 06:47] LABS: Anion Gap 6 mmol/L; Blood Urea Nitrogen 18 mg/dL (9-20); Calcium 9.1 mg/dL (8.4-10.2); Carbon Dioxide 27 mmol/L (22-30); Chloride 105 mmol/L (98-107); Glucose 189 mg/dL (74-99); Magnesium 1.7 mg/dL (1.6-2.3); Non-African American GFR(MDRD) >60 (>60 ml/min/1.73 sqM); Phosphorous 3.4 mg/dL (2.5-4.5); Potassium 4.2 mmol/L (3.5-5.1); Sodium 138 mmol/L (137-145)
[2016-11-06] MEDS ORDERED: MIDAZOLAM 2 MG/2 ML VIAL ONE ×2 (07:15→07:55)
[2016-11-06] MEDS ORDERED: LIDOCAINE 2% INJ 20 MG/ML (20 ML MDV) ONE (07:15)
[2016-11-06] MEDS ORDERED: VERAPAMIL 2.5 MG/ML 2 ML AMP ONE (07:42)
[2016-11-06] MEDS ORDERED: LIDOCAINE 2% INJ 20 MG/ML SQ ONE (07:46)
[2016-11-06] MEDS ORDERED: MIDAZOLAM 2 MG/2 ML VIAL IV ONE (07:48)
[2016-11-06] MEDS: VERAPAMIL SYRINGE (5 MG/10 ML) INTRAARTER ONE ×2 (07:50→09:48)
[2016-11-06] MEDS ORDERED: BIVALIRUDIN BOLUS 250 MG/50 ML IV ONE (07:52)
[2016-11-06] MEDS ORDERED: BIVALIRUDIN 250 MG in SODIUM CHLORIDE 0.9% 50 ML IV ONE ×2 (07:54→08:39)
[2016-11-06] MEDS ORDERED: SODIUM CHLORIDE 0.9% 1,000 ML IV ONE (07:55)
[2016-11-06] MEDS: NITROGLYCERIN 1000MCG/10ML SYRINGE INTRACORON ONE ×3 (08:11→09:23)
[2016-11-06] MEDS ORDERED: HYDROmorphone 2 MG/ML 1 ML SYRINGE ONE (08:44)
[2016-11-06] MEDS ORDERED: HYDROmorphone 2 MG/ML 1 ML SYRINGE IV ONE (08:46)
[2016-11-06] MEDS ORDERED: niCARdipine Syringe (1,000 mcg/10 mL) INTRACORON ONE (09:26)
--- NOTE | 2016-11-06 09:35 | PN ---
This patient was admitted with acute inferior wall myocardial infarction and underwent stent with RCA. Patient had also disease in the circumflex. He had some atypical chest pain. He is otherwise stable. Blood pressure is 142/83 mmHg. First and second heart sounds are normal. Lungs are clinically clear to auscultation and percussion and we will obtain an echocardiogram. Continue with the current medications and transfer the patient to selective care unit. ALEX
[2016-11-06] MEDS ORDERED: NITROGLYCERIN 1000MCG/10ML SYRINGE INTRACORON ONE (09:38)
[2016-11-06] MEDS ORDERED: IOHEXOL 350 MG/ML 125ML BOTTLE INJ ONE (09:44)
[2016-11-06] MEDS ORDERED: RX INFO: IV CONTRAST WAS GIVEN 1 EACH MISC MISCELLANE PRN (10:00)
[2016-11-06] MEDS ORDERED: SODIUM CHLORIDE 0.9% 1,000 ML IV SCH (10:00)
[2016-11-06] MEDS: NICOTINE 21MG/24HR PATCH TRANSDERM SCH (10:39)
--- NOTE | 2016-11-06 11:58 | P.PCN ---
Date of Procedure: 11/06/16 Preoperative Diagnosis: Postoperative Diagnosis: Procedure(s) Performed: Implants: Indications for Procedure: Operative Findings: PERCUTANEOUS CORONARY INTERVENTION Performing physician Brock Mallory M.D., venetian blind installer Procedure performed Successful stenting of the distal LCX using 2.5 x 12 mm Promus JESÚS with good results Successful stenting of the mid LCX using 2.5 x 23 mm Xience JESÚS with good results. Indication This is a pleasant 46-year-old gentleman who presented to the hospital a few days ago with a chest discomfort and was diagnosed with acute inferior ST elevation myocardial infarction. He underwent a heart catheterization emergently and PCI of the RCA. He was found to have severe disease involving the LCX and intermediate disease of the LAD. He was brought today to undergo a PCI of the LCX. Approach Right radial artery Right common femoral artery Complication None Level of sedation Moderate with sedation length of 131 minutes Procedure description After obtaining an informed consent the patient was brought to the cardiac earthmoving labourer. The right radial artery was cannulated using micropuncture technique, the micropuncture wire passed easily then I placed a 6-Iraqi sheath in the right radial artery. Then I gave the patient 2 mg of verapamil IA. After that anticoagulation was initiated using Angiomax. After that, I did engage the left main using JL 3.5 guiding catheter. I did wire the LCx using a whisper wire. I advanced 2 5 x 15 mm balloon to the mid left circumflex and I did balloon angioplasty where the balloon was inflated under 10 noel 3 times. After that the balloon was withdrawn out. I attempted advancing 2.5 x 23 mm Xience to the mid LCX but the stent won't make the turn from the left main to the left circumflex. At that point I did wire the left circumflex using a afshan wire which was a run-through wire. I tried again advancing the stent and I was unable. At that point I decided to abort the radial approach and go from the groin. So the right common femoral artery was cannulated using micropuncture technique, the micropuncture wire passed easily then I placed a 6-Iraqi sheath in the right common femoral artery. After that I did engage the left main using an XB 35 LAD guide. Again eye wired LCX using a whisper wire which was a long whisper wire. Then I did exchange my whisper wire into a mail man wire using [id number] balloon. Then I did rewire the left circumflex using a whisper wire again. I was able to advance 2.5 x 23 mm stent into the mid left circumflex at this point where the stent was positioned under fluoroscopy guidance and deployed under 12 noel. The following angiogram showed an area of dissection distal to the stent so I decided to cover that dissection. I did advance 2.5 x 12 mm Promus the stent where the stent was positioned under fluoroscopy guidance and then it was deployed under its nominal pressure. The following angiogram showed an area distal to the second the stent which has disease appears to be in the range of 50-60%. It has good flow and its. I decided to stop at this point. The patient is going anyway to have a myocardial perfusion imaging stress test to assess for ischemia in the anterior wall and I will assess also for ischemia in the inferolateral wall. Postprocedure management #1 dual antiplatelet therapy #2 risk factors modification #3 stress test as an outpatient Description of Procedure:
[2016-11-06 12:03] LABS: Glucose,Whole Blood 205 mg/dL (75-99)
[2016-11-06] MEDS: HYDROcodone/APAP 10-325MG 1 EACH TAB PO PRN ×2 (12:33→18:58)
[2016-11-06] MEDS: MULTIVITAMINS, THERA 1 EACH TAB PO SCH (12:33)
[2016-11-06] MEDS: FOLIC ACID 1 MG TAB PO SCH (12:33)
[2016-11-06 16:55] LABS: Glucose,Whole Blood 236 mg/dL (75-99)
[2016-11-06 21:03] LABS: Glucose,Whole Blood 292 mg/dL (75-99)
[2016-11-06] MEDS: INSULIN DETEMIR 100 UNIT/ML 10 ML VIAL SQ SCH (21:08)
[2016-11-06] MEDS: ATORVASTATIN 80 MG TAB PO SCH (21:08)
[2016-11-07] MEDS: HYDROcodone/APAP 10-325MG 1 EACH TAB PO PRN ×3 (01:32→20:30)
[2016-11-07 05:54] LABS: Glucose,Whole Blood 189 mg/dL (75-99)
[2016-11-07] MEDS: PANTOPRAZOLE 40 MG TABLET PO SCH (06:11)
[2016-11-07] MEDS: INSULIN LISPRO (humaLOG) 300 UNIT/3 ML VIAL SQ SCH ×4 (06:11→21:31)
[2016-11-07 06:27] LABS: Basophils # (A) 0.1 k/uL (0-0.2); Basophils % (A) 1 %; CH 33.3; Eosinophils # (A) 0.2 k/uL (0-0.7); Eosinophils % (A) 2 %; HCT 39.6 % (39.0-53.0); HDW 3.06; HGB 14.3 gm/dL (13.0-17.5); Luc # (Auto) 0.23; Luc % (Auto) 3; Lymphocytes # (A) 1.3 k/uL (1.0-4.8); Lymphocytes % (A) 18 %; MCH 34.6 pg (25.0-35.0); MCHC 36.2 g/dL (31.0-37.0); MCV 95.5 fL (80.0-100.0); Mean Platelet Volume 8.5; Monocytes # (A) 0.6 k/uL (0-1.0); Monocytes % (A) 8 %; Neutrophils # (A) 5.2 k/uL (1.3-7.7); Neutrophils % (A) 69 %; RBC 4.14 m/uL (4.30-5.90); RDW 13.3 % (11.5-15.5); WBC 7.5 k/uL (3.8-10.6); WBC (Perox) 7.57
[2016-11-07 08:22] LABS: Anion Gap 8 mmol/L; Blood Urea Nitrogen 18 mg/dL (9-20); Calcium 8.6 mg/dL (8.4-10.2); Carbon Dioxide 24 mmol/L (22-30); Chloride 106 mmol/L (98-107); Glucose 198 mg/dL (74-99); Non-African American GFR(MDRD) >60 (>60 ml/min/1.73 sqM); Sodium 138 mmol/L (137-145)
[2016-11-07 08:33] LABS: Potassium 4.9 mmol/L (3.5-5.1)
[2016-11-07] MEDS: NICOTINE 21MG/24HR PATCH TRANSDERM SCH (09:49)
[2016-11-07] MEDS: PRASUGREL 10 MG TAB PO SCH (09:50)
[2016-11-07] MEDS: LISINOPRIL 10 MG TAB PO SCH (09:50)
[2016-11-07] MEDS: ASPIRIN 325 MG TAB PO SCH (09:50)
[2016-11-07] MEDS: METOPROLOL TARTRATE 25 MG TAB PO SCH ×2 (09:50→20:30)
[2016-11-07] MEDS: MULTIVITAMINS, THERA 1 EACH TAB PO SCH (09:51)
[2016-11-07] MEDS: FOLIC ACID 1 MG TAB PO SCH (09:51)
[2016-11-07] MEDS: THIAMINE 100 MG TAB PO SCH ×2 (09:51→20:30)
--- NOTE | 2016-11-07 13:09 | P.PN ---
Subjective Principal diagnosis: STEMI This is a 46-year-old gentleman who presented to the hospital initially with chest discomfort and was diagnosed with acute inferior ST elevation and I. He underwent emergent heart catheterization upon admission and PCI of RCA. He subsequently underwent cardiac catheterization yesterday with Dr. Mallory with stent placement 2 to the circumflex. He also has known LAD lesion of 60% and left circumflex lesion distal to the stent of about 50%. Patient had been feeling well through the night this morning has developed some fatigue, shortness of breath with exertion and just overall not feeling well. Objective - Vital Signs Vital signs: Vital Signs Temp 97.3 F L 11/07/16 08:20 Pulse 86 11/07/16 08:20 Resp 18 11/07/16 08:20 BP 135/64 11/07/16 08:20 Pulse Ox 98 11/07/16 08:20 Intake & Output 11/06/16 11/07/16 11/07/16 18:59 06:59 18:59 Intake Total 494 1170 Output Total 200 500 Balance 294 670 Weight 113.9 kg Intake: IV 494 810 0.9 810 Oral 360 Output: Urine 200 500 Other: # Voids 1 - Exam PHYSICAL EXAMINATION: HEENT: Head is atraumatic, normocephalic. Pupils equal, round. Neck is supple. There is no elevated jugular venous pressure. HEART EXAMINATION: Heart sounds regular, S1 and S2 normal. No murmur or gallop heard. CHEST EXAMINATION: Lungs are clear to auscultation and precussion. No chest wall tenderness is noted on palpation or with deep breathing. ABDOMEN: Soft, nontender. Bowel sounds are heard. No organomegaly noted. EXTREMITIES: 2+ peripheral pulses with no evidence of peripheral edema and no calf tenderness noted. Right radial puncture site without hematoma.. NEUROLOGIC patient is awake, alert and oriented x3. . - Labs CBC & Chem 7: 11/07/16 06:02 11/07/16 06:02 Labs: Abnormal Lab Results - Last 24 Hours (Table) 11/06/16 11/06/16 11/07/16 Range/Units 16:45 21:02 05:53 RBC (4.30-5.90) m/uL Plt Count (150-450) k/uL Glucose (74-99) mg/dL POC Glucose (mg/dL) 236 H 292 H 189 H (75-99) mg/dL 11/07/16 11/07/16 Range/Units 06:02 06:02 RBC 4.14 L (4.30-5.90) m/uL Plt Count 129 L (150-450) k/uL Glucose 198 H (74-99) mg/dL POC Glucose (mg/dL) (75-99) mg/dL Assessment and Plan Plan: Assessment and plan #1 STEMI, inferior #2 subsequent development of fatigue and shortness of breath with exertion #3 hypertension #4 hyperlipidemia #5 diabetes We will get a chest x-ray as well as an EKG. Have BNP and repeat BMP done today. Keep the patient for further observation. Further recommendations will depend on results and patient's clinical course. YOUTH WORKER note has been reviewed, I agree with a documented findings and plan of care. Patient was seen and examined.
[2016-11-07 13:17] LABS: Glucose,Whole Blood 203 mg/dL (75-99)
[2016-11-07 14:47] LABS: Anion Gap 9 mmol/L; Blood Urea Nitrogen 16 mg/dL (9-20); Calcium 9.3 mg/dL (8.4-10.2); Carbon Dioxide 26 mmol/L (22-30); Chloride 104 mmol/L (98-107); Glucose 226 mg/dL (74-99); Non-African American GFR(MDRD) >60 (>60 ml/min/1.73 sqM); Potassium 4.9 mmol/L (3.5-5.1); Sodium 139 mmol/L (137-145)
--- NOTE | 2016-11-07 15:29 | P.PN ---
Subjective This is a 46-year-old gentleman who presented to the hospital initially with chest discomfort and was diagnosed with acute inferior ST elevation and I. He underwent emergent heart catheterization upon admission and PCI of RCA. He subsequently underwent cardiac catheterization yesterday with Dr. Mallory with stent placement 2 to the circumflex. He also has known LAD lesion of 60% and left circumflex lesion distal to the stent of about 50%. Patient had been feeling well through the night this morning has developed some fatigue, shortness of breath with exertion and just overall not feeling well. REVIEW OF SYSTEMS: CARDIOVASCULAR: No chest pain, no orthopnea, no PND, no palpitations. PULMONARY: Denied any shortness of breath. No cough or hemoptysis. GASTROINTESTINAL: No diarrhea, nausea or vomiting. No abdominal pain. Normoactive bowel sounds. NEUROLOGIC: No headaches, no weakness, no numbness. Objective - Vital Signs Vital signs: Vital Signs Temp 97.3 F L 11/07/16 08:20 Pulse 86 11/07/16 08:20 Resp 18 11/07/16 08:20 BP 135/64 11/07/16 08:20 Pulse Ox 98 11/07/16 08:20 Intake & Output 11/06/16 11/07/16 11/07/16 18:59 06:59 18:59 Intake Total 494 1170 480 Output Total 200 500 Balance 294 670 480 Weight 113.9 kg Intake: IV 494 810 0.9 810 Oral 360 480 Output: Urine 200 500 Other: # Voids 1 2 - Exam PHYSICAL EXAMINATION: GENERAL: The patient is alert and oriented x3, not in any acute distress. Well developed, well nourished. HEENT: Pupils are round and equally reacting to light. EOMI. No scleral icterus. No conjunctival pallor. Normocephalic, atraumatic. No pharyngeal erythema. No thyromegaly. CARDIOVASCULAR: S1 and S2 present. No murmurs, rubs, or gallops. PULMONARY: Chest is clear to auscultation, no wheezing or crackles. ABDOMEN: Soft, nontender, nondistended, normoactive bowel sounds. No palpable organomegaly. MUSCULOSKELETAL: No joint swelling or deformity. EXTREMITIES: No cyanosis, clubbing, or pedal edema. NEUROLOGICAL: Gross neurological examination did not reveal any focal deficits. SKIN: No rashes. - Labs CBC & Chem 7: 11/07/16 06:02 11/07/16 14:21 Labs: Abnormal Lab Results - Last 24 Hours (Table) 11/06/16 11/06/16 11/07/16 Range/Units 16:45 21:02 05:53 RBC (4.30-5.90) m/uL Plt Count (150-450) k/uL Glucose (74-99) mg/dL POC Glucose (mg/dL) 236 H 292 H 189 H (75-99) mg/dL 11/07/16 11/07/16 11/07/16 Range/Units 06:02 06:02 12:57 RBC 4.14 L (4.30-5.90) m/uL Plt Count 129 L (150-450) k/uL Glucose 198 H (74-99) mg/dL POC Glucose (mg/dL) 203 H (75-99) mg/dL 11/07/16 Range/Units 14:21 RBC (4.30-5.90) m/uL Plt Count (150-450) k/uL Glucose 226 H (74-99) mg/dL POC Glucose (mg/dL) (75-99) mg/dL Assessment and Plan Plan: #1 acute [place], inferior: Patient underwent cardiac ablation and stenting of the aforementioned vessels patient is chest pain-free and possibility of discharge tomorrow continue with dual antiplatelet therapy, beta kayla, statin. No congestive heart failure #2 diabetes mellitus type 2 uncontrolled, hold off metformin and continue with sliding scale insulin Levemir #3 ongoing tobacco use counseling was provided #4 hypertension #Obesity
--- NOTE | 2016-11-07 16:45 | XR ---
EXAMINATION TYPE: XR chest 2V DATE OF EXAM: 11/07/2016 COMPARISON: NONE INDICATION: Short of breath TECHNIQUE: Frontal and lateral views of the chest are obtained. FINDINGS: The heart size is normal. The pulmonary vasculature is normal. The lungs are clear. IMPRESSION: 1. No acute pulmonary process.
[2016-11-07 17:14] LABS: Glucose,Whole Blood 168 mg/dL (75-99)
--- NOTE | 2016-11-07 17:17 | P.PN ---
Subjective Date of service 11/06/2016. Progress note being dictated for Dr. Briones Interval history: This a 46-year-old gentleman admitted with chest pain, acute inferior STEMI, status post emergent heart catheterization and multiple other medical issues. Initially he received PCI/PTCA of RCA. Just returning from cardiac catheterization today with 2 stents to the circumflex. Patient also has known 60% LAD lesion and 50% left circumflex lesion distal to the stent. Tolerated procedure well. Denies chest pain, palpitations or increasing shortness of breath. Telemetry sinus rhythm. Objective - Vital Signs Vital signs: Vital Signs Temp 97.8 F 11/06/16 16:10 Pulse 68 11/06/16 16:10 Resp 18 11/06/16 16:10 BP 128/76 11/06/16 16:10 Pulse Ox 95 11/06/16 16:10 Intake & Output 11/06/16 11/06/16 11/07/16 06:59 18:59 06:59 Intake Total 692 494 360 Output Total 200 500 Balance 692 294 -140 Weight 112.7 kg Intake: IV 452 494 0.9 452 Oral 240 360 Output: Urine 200 500 Other: # Voids 1 1 - Exam PHYSICAL EXAM: VITAL SIGNS: As above GENERAL: [Lying in bed, no acute distress] HEENT: [Pupils equal conjunctiva normal. Oral mucosa moist] NECK: [Supple, no JVD] RESPIRATORY EFFORT:[ Normal] LUNGS: [Clear to auscultation, no wheezes rhonchi or crackles] CARDIOVASCULAR[ regular S1 and S2, no murmurs rubs or gallops, no edema] GI: [Abdomen soft, nontender, positive bowel sounds. No palpable organomegaly. No guarding, no rigidity] PSYCH: [Alert and oriented -3, mood and affect normal.] NEURO: [No focal deficits] - Labs CBC & Chem 7: 11/07/16 06:02 11/07/16 14:21 Labs: Abnormal Lab Results - Last 24 Hours (Table) 11/06/16 11/06/16 11/06/16 Range/Units 05:48 05:48 06:00 RBC 4.22 L (4.30-5.90) m/uL Plt Count 123 L (150-450) k/uL Glucose 189 H (74-99) mg/dL POC Glucose (mg/dL) 186 H (75-99) mg/dL 11/06/16 11/06/16 11/06/16 Range/Units 11:35 16:45 21:02 RBC (4.30-5.90) m/uL Plt Count (150-450) k/uL Glucose (74-99) mg/dL POC Glucose (mg/dL) 205 H 236 H 292 H (75-99) mg/dL Assessment and Plan Plan: 1. [ Acute inferior STEMI, status post emergent cath. And subsequent cath. with stenting of RCA and circumflex as mentioned above 2. [ Diabetes mellitus type 2, uncontrolled, continue holding metformin]. 3. [ Ongoing nicotine dependence]. 4. [ Hypertension]. 5. [ Obesity, BMI 37.1]. 6. [ Hyperlipidemia]. Plan: Continue on current medication regime ,monitoring and symptomatic treatment. Maintain dual antiplatelet therapy, statin, beta kayla. Continue holding metformin, maintain sliding scale and Levemir with close monitoring of Accu-Cheks. Smoking cessation readdressed. Follow closely with cardiology. Further recommendations to follow. The impression and plan of care has been dictated as directed. : I performed a H&P examination of this patient and discussed the same with the dictator. I agree with the dictator's note. Any additional findings/opinions/ etc. will be noted.
[2016-11-07] MEDS: ATORVASTATIN 80 MG TAB PO SCH (20:30)
[2016-11-07 21:04] LABS: Glucose,Whole Blood 213 mg/dL (75-99)
[2016-11-07] MEDS: INSULIN DETEMIR 100 UNIT/ML 10 ML VIAL SQ SCH (21:31)
[2016-11-07 22:47] VITALS: RESP 16
[2016-11-08 06:09] LABS: Glucose,Whole Blood 192 mg/dL (75-99)
[2016-11-08] MEDS: INSULIN LISPRO (humaLOG) 300 UNIT/3 ML VIAL SQ SCH ×2 (06:15→12:09)
[2016-11-08] MEDS: PANTOPRAZOLE 40 MG TABLET PO SCH (06:16)
[2016-11-08] MEDS: HYDROcodone/APAP 10-325MG 1 EACH TAB PO PRN ×2 (06:21→12:06)
[2016-11-08] MEDS: NICOTINE 21MG/24HR PATCH TRANSDERM SCH (07:58)
[2016-11-08] MEDS: LISINOPRIL 10 MG TAB PO SCH (07:58)
[2016-11-08] MEDS: PRASUGREL 10 MG TAB PO SCH (07:58)
[2016-11-08] MEDS: METOPROLOL TARTRATE 25 MG TAB PO SCH (07:58)
[2016-11-08] MEDS: ASPIRIN 325 MG TAB PO SCH (07:58)
[2016-11-08] MEDS: THIAMINE 100 MG TAB PO SCH (07:59)
--- NOTE | 2016-11-08 10:37 | PN ---
The patient is a 46 year old admitted with non-ST elevation myocardial infarction. The patient will undergo cardiac catheterization and stenting as part of staged intervention tomorrow. REVIEW OF SYSTEMS: ( ). Medications were reviewed. PHYSICAL EXAMINATION: VITAL SIGNS: Temperature 98.2, pulse 73, respiratory rate of 18, blood pressure 146/75. Saturation at 95% on room air. ( ). LABORATORY DATA: None available from today. Although, CBC and basic metabolic profile will be obtained for tomorrow. ASSESSMENT AND PLAN: 1. Acute myocardial infarction, non-ST elevation non-ST elevation myocardial infarction. The patient has multivessel disease. The patient is undergoing cardiac catheterization and stenting tomorrow. The patient underwent stenting of right coronary artery. 2. Type 2 diabetes mellitus. 3. Nicotine abuse history. 4. Hypertension. PLAN: Continue present medications. Cardiac catheterization tomorrow. Repeat electrolytes and CBC tomorrow. Please refer to cardiology for further details of previous cardiac catheterization and stenting and cardiac catheterization the patient will undergo tomorrow. The patient appears to have multivessel disease, underwent stenting of mid right coronary artery. KEEGAND
[2016-11-08] MEDS: MULTIVITAMINS, THERA 1 EACH TAB PO SCH (12:00)
[2016-11-08 12:25] LABS: Glucose,Whole Blood 173 mg/dL (75-99)
--- NOTE | 2016-11-08 14:12 | P.DS ---
Providers Date of admission: 11/02/16 10:35 Attending physician: Brock Mallory Consults: 11/02/16 11:26 Consult Physician Routine Consulting Provider: Cardiology Herman Consult Reason/Comments: Post Interventional patient Do you want consulting provider notified?: Already Contacted 11/06/16 10:01 Consult Physician Routine Consulting Provider: Shan Sutton Consult Reason/Comments: Post Interventional patient Do you want consulting provider notified?: Already Contacted Primary care physician: Stated None Hospital Course: his is a 46-year-old gentleman who presented to the hospital initially with chest discomfort and was diagnosed with acute inferior ST elevation and I. He underwent emergent heart catheterization upon admission and PCI of RCA. He subsequently underwent cardiac catheterization yesterday with Dr. Mallory with stent placement 2 to the circumflex. He also has known LAD lesion of 60% and left circumflex lesion distal to the stent of about 50%. Patient had been feeling well through the night this morning. Patient will be discharged today and patient was not taking his metformin at home patient was discharged on metformin patient may need addition of another oral hypoglycemic agent as he is on 30 units of Lantus here. Rest of the cardiac medication reconciliation will be taken care of by cardiology service and patient will follow with his PCP and cardiology as an outpatient. PHYSICAL EXAMINATION: GENERAL: The patient is alert and oriented x3, not in any acute distress. Well developed, well nourished. HEENT: Pupils are round and equally reacting to light. EOMI. No scleral icterus. No conjunctival pallor. Normocephalic, atraumatic. No pharyngeal erythema. No thyromegaly. CARDIOVASCULAR: S1 and S2 present. No murmurs, rubs, or gallops. PULMONARY: Chest is clear to auscultation, no wheezing or crackles. ABDOMEN: Soft, nontender, nondistended, normoactive bowel sounds. No palpable organomegaly. MUSCULOSKELETAL: No joint swelling or deformity. EXTREMITIES: No cyanosis, clubbing, or pedal edema. NEUROLOGICAL: Gross neurological examination did not reveal any focal deficits. SKIN: No rashes. Pertinent Studies: #1 acute [place], inferior: Patient underwent cardiac ablation and stenting of the aforementioned vessels patient is chest pain-free and possibility of discharge tomorrow continue with dual antiplatelet therapy, beta kayla, statin. No congestive heart failure #2 diabetes mellitus type 2 uncontrolled. #3 ongoing tobacco use counseling was provided #4 hypertension #Obesity Plan - Discharge Summary New Discharge Prescriptions: New metFORMIN HCL [Glucophage] 1,000 mg PO BID #60 tab Continue HYDROcodone/APAP 10-325MG [[place] 10-325] 1 - 2 tab PO Q6H PRN #20 PRN Reason: Pain Discharge Medication List HYDROcodone/APAP 10-325MG [[place] 10-325] 1 - 2 tab PO Q6H PRN #20 11/08/16 [Rx] metFORMIN HCL [Glucophage] 1,000 mg PO BID #60 tab 11/08/16 [Rx] Follow up Appointment(s)/Referral(s): Guzman Araujo MD [REFERRING] - 1 Week (please call to make appointment,office is closed today) Brock Mallory MD [STAFF PHYSICIAN] - 11/09/16 4:30 pm Patient Instructions/Handouts: *Surgery [facility] - After Heart Catheterization - Magazine Worker Instructions, Myocardial Infarction (DC), Meal Planning with Diabetes Exchanges (DC), Heart Catheterization (DC), Coronary Intravascular Stent Placement (DC), After Radial Heart Catheterization (GEN) Activity/Diet/Wound Care/Special Instructions: Pt has a 30 day free supply of Effient filled in [facility] op pharmacy
[2016-11-08 14:41] VITALS: BP 151/86; PULSE 79; TEMP 97.2
[2016-11-08] MEDS: FOLIC ACID 1 MG TAB PO SCH (14:42)
--- NOTE | 2016-11-10 18:54 | P.PN ---
Progress Note - Text This is Dr. Mcbride dictating a progress note for 11/08/2016. This patient was admitted on 11/02/2016 with acute inferior wall AR. Patient had a stent placement of the RCA by Dr. Pendleton. Subsequently, patient had stent placement of the circumflex and is staged fashion. Patient was having some generalized weakness, not feeling well yesterday. Today patient is feeling much better. Denies any chest pain or shortness of breath. Patient wanted to be discharged home. Patient will be followed in the office by Dr. Pendleton in one week. GENERAL EXAM: Patient is alert and oriented and doesn't appear to be in any acute distress HEENT: Normocephalic. Normal reaction of pupils, equal size, normal range of extraocular motion. No erythema or exudates in the throat. NECK: No masses, no nuchal rigidity. CHEST: No chest wall deformity. LUNGS: Equal air entry with no crackles or wheeze.. HEART: S1 and S2 normal with no audible mumurs or gallops. Regular rhythm, femorals equal on both sides.. ABDOMEN: No hepatosplenomegaly, normal bowel sounds, no guarding or rigidity. SKIN: No rashes CENTRAL NERVOUS SYSTEM: No focal deficits. EXTREMITIES: No cyanosis, clubbing or edema. Plan: Patient is critically stable. He'll be discharged home. He'll continue dual antiplatelet agent. Follow-up with Dr. Pendleton in one week.
== END 2016-11-08 15:53 | disposition home or self-care (01) | DRG 247 ==
LOC: 6ICU 10:35 → 6SEL 11-03 17:47
PROVIDERS: ADMIT Internal Medicine Interventional Cardiology; ATTEND Internal Medicine Interventional Cardiology
PROC: B2111ZZ Fluoroscopy of Multiple Coronary Arteries using Low Osmolar Contrast (ICD-10-PCS; 2016-11-02)
PROC: B2151ZZ Fluoroscopy of Left Heart using Low Osmolar Contrast (ICD-10-PCS; 2016-11-02)
PROC: 4A023N7 Measurement of Cardiac Sampling and Pressure, Left Heart, Percutaneous Approach (ICD-10-PCS; 2016-11-02 10:30)
PROC: 027035Z Dilation of Coronary Artery, One Artery with Two Drug-eluting Intraluminal Devices, Percutaneous Approach (ICD-10-PCS; principal; 2016-11-06 07:22)
DX: I21.19 ST elevation (STEMI) myocardial infarction involving other coronary artery of inferior wall (principal); E11.65 Type 2 diabetes mellitus with hyperglycemia; I10 Essential (primary) hypertension; E78.5 Hyperlipidemia, unspecified; F17.200 Nicotine dependence, unspecified, uncomplicated; I25.10 Atherosclerotic heart disease of native coronary artery without angina pectoris; K21.9 Gastro-esophageal reflux disease without esophagitis; M54.5 Low back pain; G89.29 Other chronic pain; M19.042 Primary osteoarthritis, left hand; M19.041 Primary osteoarthritis, right hand; M19.032 Primary osteoarthritis, left wrist; M19.031 Primary osteoarthritis, right wrist; E66.9 Obesity, unspecified; Z68.37 Body mass index [BMI] 37.0-37.9, adult; Z95.5 Presence of coronary angioplasty implant and graft; Z91.14 Patient's other noncompliance with medication regimen; Z82.49 Family history of ischemic heart disease and other diseases of the circulatory system
CPT/HCPCS: 71020; 80048; 80306; 80320; 81001; 83036; 83735; 83880; 84100; 85025; 85027; 93306; 93458

== ENCOUNTER 2016-12-06 16:42 | Inpatient (IN) | payer OTHER ==
[2016-12-06] MEDS ORDERED: NITROGLYCERIN SL TABS 0.4 MG TAB SUBLINGUAL STA (17:17)
[2016-12-06] MEDS ORDERED: SODIUM CHLORIDE 0.9% 500 ML IV STA (17:17)
[2016-12-06 17:53] LABS: Basophils % (A) 1 %; CH 33.3; CHCM 35.4; Eosinophils # (A) 0.2 k/uL (0-0.7); Eosinophils % (A) 3 %; HCT 44.5 % (39.0-53.0); HDW 3.04; HGB 15.4 gm/dL (13.0-17.5); Luc % (Auto) 4; Lymphocytes # (A) 1.4 k/uL (1.0-4.8); Lymphocytes % (A) 20 %; MCH 32.7 pg (25.0-35.0); MCHC 34.6 g/dL (31.0-37.0); MCV 94.8 fL (80.0-100.0); Mean Platelet Volume 8.4; Monocytes # (A) 0.6 k/uL (0-1.0); Monocytes % (A) 9 %; Neutrophils # (A) 4.3 k/uL (1.3-7.7); Neutrophils % (A) 63 %; RDW 14.5 % (11.5-15.5); WBC 6.8 k/uL (3.8-10.6); WBC (Perox) 6.67
[2016-12-06 18:02] LABS: ALT 63 U/L (21-72); AST 21 U/L (17-59); Alkaline Phosphatase 100 U/L (38-126); Anion Gap 11 mmol/L; Blood Urea Nitrogen 24 mg/dL (9-20); Calcium 9.5 mg/dL (8.4-10.2); Carbon Dioxide 25 mmol/L (22-30); Chloride 101 mmol/L (98-107); Glucose 334 mg/dL (74-99); Magnesium 1.5 mg/dL (1.6-2.3); Non-African American GFR(MDRD) >60 (>60 ml/min/1.73 sqM); Potassium 4.8 mmol/L (3.5-5.1); Prothrombin Time 9.8 sec (9.0-12.0); Sodium 137 mmol/L (137-145); Total Bilirubin 0.9 mg/dL (0.2-1.3); Total Protein 6.9 g/dL (6.3-8.2)
[2016-12-06 18:17] LABS: Creatine Kinase 51 U/L (55-170)
--- NOTE | 2016-12-06 18:19 | XR ---
EXAMINATION TYPE: XR chest 2V DATE OF EXAM: 12/06/2016 COMPARISON: 11/07/2016 HISTORY: 46-year-old male with chest pain and shortness of breath TECHNIQUE: PA and lateral views FINDINGS: The cardiomediastinal silhouette, aorta, and pulmonary vasculature are within normal limits. Diffuse interstitial prominence and peribronchial cuffing slightly more accentuated from prior exam. No conso lidation or pleural effusion. IMPRESSION: Correlate for bronchitis or uncontrolled asthma. No focal infiltrate.
[2016-12-06 18:28] LABS: Creatine Kinase MB 0.8 ng/mL (0.0-2.4); Troponin I <0.012 ng/mL (0.000-0.034)
[2016-12-06] MEDS ORDERED: HEPARIN SODIUM,PORCINE 5,000 UNIT/ML 1 ML VIAL IV ONE (19:39)
[2016-12-06] MEDS ORDERED: NITROGLYCERIN-D5W PMX 50 MG in DEXTROSE/WATER 1 250ML.BAG IV ONE (19:39)
[2016-12-06] MEDS ORDERED: HEPARIN SODIUM,PORCINE 5,000 UNIT/ML 1 ML VIAL IV PRN (19:39)
[2016-12-06] MEDS ORDERED: HEPARIN SODIUM,PORCINE/D5W PMX 25,000 UNIT in DEXTROSE/WATER 1 500ML.BAG IV SCH (19:45)
[2016-12-06] MEDS ORDERED: MAGNESIUM SULFATE-D5W PMX 1 GM in DEXTROSE/WATER 1 100ML.BAG IVPB ONE (19:49)
[2016-12-06] MEDS ORDERED: NALOXONE 0.4 MG/ML 1 ML VIAL IV PRN (19:50)
[2016-12-06] MEDS ORDERED: ONDANSETRON 4 MG/2 ML VIAL IVP PRN (19:50)
[2016-12-06] MEDS ORDERED: MORPHINE SULFATE 4 MG/ML SYRINGE IV PRN (19:50)
--- NOTE | 2016-12-06 19:59 | ED ---
General Adult HPI - General Chief complaint: Chest Pain Stated complaint: Chest Pain/SOB Time Seen by Provider: 12/06/16 16:46 Source: patient, RN notes reviewed, old records reviewed Mode of arrival: wheelchair Limitations: no limitations - History of Present Illness Initial comments: 46-year-old male with history of diabetes, hypertension, and CAD presents with anterior chest tightness, and heart palpitations. Patient had recent heart attack on November 02 requiring intervention. He did receive a stent at that time. Patient also complains of some dizziness and fatigue throughout the day today. Denies cough denies fever. States his chest tightness has been waxing and waning, comes at rest. He also had 2 episodes of nausea and vomiting associated with this chest tightness yesterday. Patient denies missing any doses of his medication including his antiplatelet. Patient admits to still smoking cigarettes. - Related Data Home Medications Medication Instructions Recorded Confirmed HYDROcodone/APAP 10-325MG [[place] 2 tab PO Q6H PRN MDD 8 TABLETS 12/06/16 10-325] Multivitamins, Thera [Multivitamin 1 tab PO DAILY 12/06/16 12/06/16 (formulary)] Previous Rx's Medication Instructions Recorded Aspirin 325 mg PO DAILY tab 11/08/16 Atorvastatin [Lipitor] 80 mg PO HS #30 tab 11/08/16 Lisinopril [Prinivil] 10 mg PO DAILY #30 tab 11/08/16 Metoprolol Tartrate [Lopressor] 25 mg PO BID #30 tab 11/08/16 Nitroglycerin Sl Tabs [Nitrostat] 0.4 mg SUBLINGUAL Q5M PRN #25 tab 11/08/16 Prasugrel [Effient] 10 mg PO DAILY tab 11/08/16 metFORMIN HCL [Glucophage] 1,000 mg PO BID #60 tab 11/08/16 Allergies Allergy/AdvReac Type Severity Reaction Status Date / Time No Known Allergies Allergy Verified 12/06/16 16:52 Review of Systems ROS Statement: Those systems with pertinent positive or pertinent negative responses have been documented in the HPI. ROS Other: All systems not noted in ROS Statement are negative. Past Medical History Past Medical History: Coronary Artery Disease (CAD), Diabetes Mellitus, GERD/ Reflux, Hyperlipidemia, Hypertension, Pneumonia, Renal Disease Additional Past Medical History / Comment(s): NIDDM type II, chronic lumbar pain , colitis, hyperlipidemia-not on RX, athrtitis bilateral hands/wrists, nephrolithiasis. History of Any Multi-Drug Resistant Organisms: None Reported Past Surgical History: Heart Catheterization With Stent, Orthopedic Surgery Additional Past Surgical History / Comment(s): 11/02/16 PCI with stent to RCA, kidney stone basketing, failed L4-L5 fusions x 2, colonoscopy. Past Anesthesia/Blood Transfusion Reactions: No Reported Reaction Date of Last Stent Placement:: 11/02/16 Past Psychological History: No Psychological Hx Reported Smoking Status: Current some day smoker Past Alcohol Use History: Occasional Past Drug Use History: None Reported - Past Family History Father Family Medical History: Congestive Heart Failure (CHF), Coronary Artery Disease (CAD), CVA/TIA, Myocardial Infarction ([place]) Additional Family Medical History / Comment(s): Father at the age of 63 yrs. Pt doesn't recall age of father's [place]. Mother Family Medical History: Cancer Additional Family Medical History / Comment(s): Mother had multiple cancers. She is living. General Exam Limitations: no limitations General appearance: alert, in no apparent distress Head exam: Present: atraumatic, normocephalic Eye exam: Present: normal appearance, PERRL, EOMI ENT exam: Present: normal exam, mucous membranes moist Neck exam: Present: normal inspection, full ROM. Absent: tenderness, meningismus Respiratory exam: Present: normal lung sounds bilaterally. Absent: respiratory distress, wheezes Cardiovascular Exam: Present: regular rate, normal rhythm GI/Abdominal exam: Present: soft. Absent: distended, tenderness Rectal exam: Present: normal inspection, normal rectal tone, heme (-) stool Extremities exam: Present: normal inspection. Absent: pedal edema Back exam: Present: normal inspection Neurological exam: Present: alert, oriented X3, CN II-XII intact. Absent: motor sensory deficit Psychiatric exam: Present: normal affect, normal mood Skin exam: Present: warm, dry. Absent: cyanosis, diaphoretic Course Vital Signs 12/06/16 12/06/16 12/06/16 16:52 17:47 18:00 Temperature 99.2 F Pulse Rate 100 92 Respiratory 18 16 16 Rate Blood Pressure 163/87 142/85 O2 Sat by Pulse 97 96 Oximetry 12/06/16 18:51 Temperature Pulse Rate 92 Respiratory 16 Rate Blood Pressure 126/70 O2 Sat by Pulse 97 Oximetry - Reevaluation(s) Reevaluation #1: 12/06/16 19:56 Patient's chest tightness resolved with sublingual nitroglycerin. EKG Findings - EKG Comments: EKG Findings:: EKG shows normal sinus rhythm, ventricular rate 99, MI interval 140, QRS duration 90, QTC [address] segment elevation or depression. Medical Decision Making - Medical Decision Making 46-year-old male with recent history of ACS, and stent placement on November 02, presenting with anterior chest tightness associated with fatigue and lightheadedness. There is also 2 episodes of nausea vomiting. Pain is relieved with nitroglycerin emergency department. Patient did say he took his aspirin prior to arrival. EKG shows no specific signs of ischemia. Chest x- ray shows no acute findings. Laboratory studies including cardiac enzymes is unremarkable. Case is discussed with cardiology and the patient will be started on heparin and nitroglycerin. Diagnosis: Unstable angina - Lab Data Result diagrams: 12/06/16 17:00 12/06/16 17:00 Lab Results 12/06/16 12/06/16 12/06/16 Range/Units 17:00 17:00 17:00 WBC 6.8 (3.8-10.6) k/uL RBC 4.70 (4.30-5.90) m/uL Hgb 15.4 (13.0-17.5) gm/dL Hct 44.5 (39.0-53.0) % MCV 94.8 (80.0-100.0) fL MCH 32.7 (25.0-35.0) pg MCHC 34.6 (31.0-37.0) g/dL RDW 14.5 (11.5-15.5) % Plt Count 136 L (150-450) k/uL Neutrophils % 63 % Lymphocytes % 20 % Monocytes % 9 % Eosinophils % 3 % Basophils % 1 % Neutrophils # 4.3 (1.3-7.7) k/uL Lymphocytes # 1.4 (1.0-4.8) k/uL Monocytes # 0.6 (0-1.0) k/uL Eosinophils # 0.2 (0-0.7) k/uL Basophils # 0.0 (0-0.2) k/uL PT (9.0-12.0) sec INR (<1.2) APTT (22.0-30.0) sec Sodium 137 (137-145) mmol/L Potassium 4.8 (3.5-5.1) mmol/L Chloride 101 (98-107) mmol/L Carbon Dioxide 25 (22-30) mmol/L Anion Gap 11 mmol/L BUN 24 H (9-20) mg/dL Creatinine 0.86 (0.66-1.25) mg/dL Est GFR (MDRD) Af Amer >60 (>60 ml/min/1.73 sqM) Est GFR (MDRD) Non-Af >60 (>60 ml/min/1.73 sqM) Glucose 334 H (74-99) mg/dL Calcium 9.5 (8.4-10.2) mg/dL Magnesium 1.5 L (1.6-2.3) mg/dL Total Bilirubin 0.9 (0.2-1.3) mg/dL AST 21 (17-59) U/L ALT 63 (21-72) U/L Alkaline Phosphatase 100 (38-126) U/L Total Creatine Kinase 51 L (55-170) U/L CK-MB (CK-2) 0.8 (0.0-2.4) ng/mL CK-MB (CK-2) Rel Index 1.6 Troponin I <0.012 (0.000-0.034) ng/mL NT-Pro-B Natriuret Pep pg/mL Total Protein 6.9 (6.3-8.2) g/dL Albumin 4.1 (3.5-5.0) g/dL Stool Occult Blood (Negative) 12/06/16 12/06/16 12/06/16 Range/Units 17:00 17:00 18:45 WBC (3.8-10.6) k/uL RBC (4.30-5.90) m/uL Hgb (13.0-17.5) gm/dL Hct (39.0-53.0) % MCV (80.0-100.0) fL MCH (25.0-35.0) pg MCHC (31.0-37.0) g/dL RDW (11.5-15.5) % Plt Count (150-450) k/uL Neutrophils % % Lymphocytes % % Monocytes % % Eosinophils % % Basophils % % Neutrophils # (1.3-7.7) k/uL Lymphocytes # (1.0-4.8) k/uL Monocytes # (0-1.0) k/uL Eosinophils # (0-0.7) k/uL Basophils # (0-0.2) k/uL PT 9.8 (9.0-12.0) sec INR 1.0 (<1.2) APTT 25.0 (22.0-30.0) sec Sodium (137-145) mmol/L Potassium (3.5-5.1) mmol/L Chloride (98-107) mmol/L Carbon Dioxide (22-30) mmol/L Anion Gap mmol/L BUN (9-20) mg/dL Creatinine (0.66-1.25) mg/dL Est GFR (MDRD) Af Amer (>60 ml/min/1.73 sqM) Est GFR (MDRD) Non-Af (>60 ml/min/1.73 sqM) Glucose (74-99) mg/dL Calcium (8.4-10.2) mg/dL Magnesium (1.6-2.3) mg/dL Total Bilirubin (0.2-1.3) mg/dL AST (17-59) U/L ALT (21-72) U/L Alkaline Phosphatase (38-126) U/L Total Creatine Kinase (55-170) U/L CK-MB (CK-2) (0.0-2.4) ng/mL CK-MB (CK-2) Rel Index Troponin I (0.000-0.034) ng/mL NT-Pro-B Natriuret Pep 321 pg/mL Total Protein (6.3-8.2) g/dL Albumin (3.5-5.0) g/dL Stool Occult Blood Negative (Negative) Disposition Clinical Impression: Unstable angina Disposition: ADMITTED IP TO THIS [facility] Condition: Stable Referrals: None,Stated [Primary Care Provider] - 1-2 days Decision to Admit Reason: Admit from EC Decision Date: 12/06/16 Decision Time: 19:20
[2016-12-06] MEDS: SODIUM CHLORIDE 0.9% 1,000 ML IV SCH (20:41)
[2016-12-06] MEDS ORDERED: ATORVASTATIN 80 MG TAB PO SCH (21:00)
[2016-12-06 22:05] VITALS: BMI 36.5
[2016-12-06] MEDS: METOPROLOL TARTRATE 25 MG TAB PO SCH (22:31)
[2016-12-06] MEDS ORDERED: ACETAMINOPHEN TAB 325 MG TAB PO PRN (23:52)
[2016-12-07 01:25] LABS: Creatine Kinase 41 U/L (55-170)
[2016-12-07 01:37] LABS: Creatine Kinase MB 0.6 ng/mL (0.0-2.4); Troponin I <0.012 ng/mL (0.000-0.034)
[2016-12-07] MEDS: SODIUM CHLORIDE 0.9% 1,000 ML IV SCH (02:49)
[2016-12-07 06:08] LABS: Glucose,Whole Blood 230 mg/dL (75-99)
[2016-12-07 06:24] LABS: Basophils % (A) 1 %; CH 32.5; CHCM 33.4; Eosinophils # (A) 0.2 k/uL (0-0.7); Eosinophils % (A) 3 %; HCT 39.7 % (39.0-53.0); HDW 3.01; HGB 13.4 gm/dL (13.0-17.5); Luc # (Auto) 0.24; Luc % (Auto) 4; Lymphocytes # (A) 1.4 k/uL (1.0-4.8); Lymphocytes % (A) 22 %; MCHC 33.8 g/dL (31.0-37.0); MCV 97.7 fL (80.0-100.0); Mean Platelet Volume 8.4; Monocytes # (A) 0.7 k/uL (0-1.0); Monocytes % (A) 11 %; Neutrophils # (A) 3.8 k/uL (1.3-7.7); Neutrophils % (A) 59 %; RBC 4.06 m/uL (4.30-5.90); RDW 13.5 % (11.5-15.5); WBC 6.5 k/uL (3.8-10.6); WBC (Perox) 6.32
[2016-12-07] MEDS: INSULIN LISPRO (humaLOG) 300 UNIT/3 ML VIAL SQ SCH ×2 (06:30→12:14)
[2016-12-07 06:39] LABS: Creatine Kinase 35 U/L (55-170)
[2016-12-07 06:52] LABS: Creatine Kinase MB 0.5 ng/mL (0.0-2.4); Troponin I <0.012 ng/mL (0.000-0.034)
--- NOTE | 2016-12-07 08:19 | P.CRDCN ---
History of Present Illness Consult date: 12/07/16 Requesting physician: Maco Trevino Consult reason: chest pain Chief complaint: Chest pain History of present illness: This is a 46-year-old gentleman with history of diabetes, hypertension , hyperlipidemia, coronary artery disease with prior stenting of the circumflex artery and mid RCA at which time the patient had presented to the hospital with an inferior wall myocardial infarction. This was performed on in October, echocardiogram with Doppler study performed at that time revealed an ejection fraction of 50-55% with evidence of inferior hypokinesia. Patient states that he has been taking all of his medications as prescribed although he continues to smoke cigarettes. He presents to the hospital on this occasion with symptoms of midsternal chest tightness with associated shortness of breath and mild diaphoresis, patient also states he was experiencing palpitations. Patient states he did not take any nitroglycerin. Overall he does state he's been getting intermittent chest pains which last only seconds, this episode he states lasted approximately a half hour in duration. EKG on arrival here showed a normal sinus rhythm with evidence of old inferior wall myocardial infarction. Chest x-ray reveals a bronchitis or uncontrolled asthma with no focal infiltrate. Blood pressure 127/78 with a heart rate in the 70s. Temperature 98.7. CBC normal, platelet count 136 yesterday 112 today. Potassium 4.8, BUN 24, creatinine 0.8. Troponins have been negative 3. BNP level 321. Stool for occult blood negative. At the time of my examination this morning, patient complains of mild chest heaviness and complains of a headache. He is currently on IV nitroglycerin drip as well as IV heparin drip. Past Medical History Past Medical History: Coronary Artery Disease (CAD), Diabetes Mellitus, GERD/ Reflux, Hyperlipidemia, Hypertension, Pneumonia, Renal Disease Additional Past Medical History / Comment(s): NIDDM type II, chronic lumbar pain , colitis, hyperlipidemia-not on RX, athrtitis bilateral hands/wrists, nephrolithiasis. History of Any Multi-Drug Resistant Organisms: None Reported Past Surgical History: Heart Catheterization With Stent, Orthopedic Surgery Additional Past Surgical History / Comment(s): 11/02/16 PCI with stent to RCA, kidney stone basketing, failed L4-L5 fusions x 2, colonoscopy. Past Anesthesia/Blood Transfusion Reactions: No Reported Reaction Date of Last Stent Placement:: 11/02/16 Past Psychological History: No Psychological Hx Reported Additional Psychological History / Comment(s): Pt resides with his spouse. He is independent. Smoking Status: Current some day smoker Past Alcohol Use History: Occasional Additional Past Alcohol Use History / Comment(s): Pt started smoking at the age of 17 yrs (1986) and depending on the day, he can smoke upwards to 1 PPD. He drinks alcohol daily-1 pint a day of rum. Past Drug Use History: None Reported - Past Family History Father Family Medical History: Congestive Heart Failure (CHF), Coronary Artery Disease (CAD), CVA/TIA, Myocardial Infarction ([place]) Additional Family Medical History / Comment(s): Father at the age of 63 yrs. Pt doesn't recall age of father's [place]. Mother Family Medical History: Cancer Additional Family Medical History / Comment(s): Mother had multiple cancers. She is living. Medications and Allergies Home Medications Medication Instructions Recorded Confirmed Type HYDROcodone/APAP 10-325MG [[place] 2 tab PO Q6H PRN MDD 8 TABLETS 12/06/16 History 10-325] Multivitamins, Thera [Multivitamin 1 tab PO DAILY 12/06/16 12/06/16 History (formulary)] Allergies Allergy/AdvReac Type Severity Reaction Status Date / Time No Known Allergies Allergy Verified 12/06/16 21:41 Physical Exam Vitals: Vital Signs Temp Pulse Pulse Resp BP BP Pulse Ox 12/07/16 04:00 74 16 127/78 96 12/07/16 00:00 98.7 F 87 18 137/79 94 L 12/06/16 22:13 98.3 F 86 18 155/88 97 12/06/16 21:00 86 18 155/88 97 12/06/16 20:43 98.3 F 81 18 169/99 98 12/06/16 20:20 98.1 F 87 18 137/79 94 L 12/06/16 18:51 92 16 126/70 97 12/06/16 18:00 92 16 142/85 96 12/06/16 17:47 16 12/06/16 16:52 99.2 F 100 18 163/87 97 Intake and Output 12/06/16 12/07/16 12/07/16 22:59 06:59 14:59 Intake Total 386.5 933.5 0 Balance 386.5 933.5 0 Intake: IV 279 Heparin Sodium,Porcine/ 120 D5w Pmx 25,000 unit In Dextrose/Water 1 500ml. bag @ 8.926 UNITS/KG/HR 20 mls/hr IV .Q24H [facility] Rx #:[id number] Nitroglycerin-D5w Pmx 50 9 mg In Dextrose/Water 1 250ml.bag @ 5 MCG/MIN 1.5 mls/hr IV .Q24H [facility] Rx#: [id number] Sodium Chloride 0.9% 1, 150 000 ml @ 75 mls/hr IV . [id number] [facility] Rx#:[id number] Intake, IV Titration 176.5 654.5 Amount Heparin Sodium,Porcine/ 119 D5w Pmx 25,000 unit In Dextrose/Water 1 500ml. bag @ 8.926 UNITS/KG/HR 20 mls/hr IV .Q24H [facility] Rx #:[id number] Magnesium Sulfate-D5w Pmx 100 1 gm In Dextrose/Water 1 100ml.bag @ 100 mls/hr IVPB ONCE ONE Rx#: [id number] Nitroglycerin-D5w Pmx 50 1.5 10.5 mg In Dextrose/Water 1 250ml.bag @ 5 MCG/MIN 1.5 mls/hr IV .Q24H [facility] Rx#: [id number] Sodium Chloride 0.9% 1, 75 525 000 ml @ 75 mls/hr IV . [id number] [facility] Rx#:[id number] Oral 210 0 Other: Voiding Method Toilet Weight 112.2 kg 112.2 kg PHYSICAL EXAMINATION: HEENT: Head is atraumatic, normocephalic. Pupils equal, round. Neck is supple. There is no elevated jugular venous pressure. HEART EXAMINATION: Heart S1, S2 normal. No murmur or gallop heard. CHEST EXAMINATION: Lungs are clear to auscultation and precussion. No chest wall tenderness is noted on palpation or with deep breathing. ABDOMEN: Soft, nontender. Bowel sounds are heard. No organomegaly noted. EXTREMITIES: 2+ peripheral pulses with no evidence of peripheral edema and no calf tenderness noted. NEUROLOGIC patient is awake, alert and oriented -3. . Results 12/07/16 05:25 12/06/16 17:00 Cardiac Enzymes 12/06/16 12/06/1617 Range/Units 17:00 17:00 22:50 AST 21 (17-59) U/L CK-MB (CK-2) 0.8 0.6 (0.0-2.4) ng/mL Troponin I <0.012 <0.012 (0.000-0.034) ng/mL 12/07/16 Range/Units 05:25 AST (17-59) U/L CK-MB (CK-2) 0.5 (0.0-2.4) ng/mL Troponin I <0.012 (0.000-0.034) ng/mL Coagulation 12/06/16 12/07/16 Range/Units 17:00 02:05 PT 9.8 (9.0-12.0) sec APTT 25.0 29.2 (22.0-30.0) sec CBC 12/06/16 12/07/16 Range/Units 17:00 05:25 WBC 6.8 6.5 (3.8-10.6) k/uL RBC 4.70 4.06 L (4.30-5.90) m/uL Hgb 15.4 13.4 (13.0-17.5) gm/dL Hct 44.5 39.7 (39.0-53.0) % Plt Count 136 L 112 L (150-450) k/uL Comprehensive Metabolic Panel 12/06/16 Range/Units 17:00 Sodium 137 (137-145) mmol/L Potassium 4.8 (3.5-5.1) mmol/L Chloride 101 (98-107) mmol/L Carbon Dioxide 25 (22-30) mmol/L BUN 24 H (9-20) mg/dL Creatinine 0.86 (0.66-1.25) mg/dL Glucose 334 H (74-99) mg/dL Calcium 9.5 (8.4-10.2) mg/dL AST 21 (17-59) U/L ALT 63 (21-72) U/L Alkaline Phosphatase 100 (38-126) U/L Total Protein 6.9 (6.3-8.2) g/dL Albumin 4.1 (3.5-5.0) g/dL Current Medications Generic Name Dose Route Start Last Admin Trade Name Freq PRN Reason Stop Dose Admin Acetaminophen 650 mg 12/06/16 23:52 12/07/16 00:07 Tylenol Tab PO 650 mg Q6HR PRN Administration Fever and/ or mild Pain Aspirin 325 mg 12/07/16 09:00 Aspirin PO DAILY [facility] Atorvastatin Calcium 80 mg 12/06/16 21:00 12/06/16 22:31 Lipitor PO 80 mg HS ANDRE Administration Heparin Sodium (Porcine) 0 unit 12/06/16 19:39 Heparin IV PER PROTOCOL PRN Low PTT Protocol Heparin Sodium/Dextrose 25,000 500 mls @ 20 mls/hr 12/06/16 19:45 12/07/16 02 :43 unit/ IV Solution IV 11.9 units/kg/hr .Q24H ANDRE 26.66 mls/hr Protocol Titration 8.926 UNITS/KG/HR Nitroglycerin/Dextrose 50 mg/ 250 mls @ 1.5 mls/hr 12/06/16 19:39 12/06/16 20 :48 IV Solution IV 12/07/16 19:38 5 mcg/min .Q24H [facility] 1.5 mls/hr Protocol Administration 5 MCG/MIN Sodium Chloride 1,000 mls @ 75 mls/hr 12/06/16 20:00 12/07/16 02:49 Saline 0.9% IV 75 mls/hr .[id number] ANDRE Administration Insulin Human Lispro 0 unit 12/07/16 07:30 12/07/16 06:30 Humalog SQ 5 unit ACHS ANDRE Administration Protocol Lisinopril 10 mg 12/07/16 09:00 Zestril PO DAILY [facility] Metoprolol Tartrate 25 mg 12/06/16 21:00 12/06/16 22:31 Lopressor PO 25 mg BID ANDRE Administration Morphine Sulfate 4 mg 12/06/16 19:50 Morphine Sulfate (Inj) IV Q4HR PRN Severe Pain Naloxone HCl 0.2 mg 12/06/16 19:50 Narcan IV Q2M PRN Opioid Reversal Ondansetron HCl 4 mg 12/06/16 19:50 Zofran IVP Q8HR PRN Nausea And Vomiting Prasugrel 10 mg 12/07/16 09:00 Effient PO DAILY ANDRE Intake and Output 12/06/16 12/07/16 12/07/16 22:59 06:59 14:59 Intake Total 386.5 933.5 0 Balance 386.5 933.5 0 Intake: IV 279 Heparin Sodium,Porcine/ 120 D5w Pmx 25,000 unit In Dextrose/Water 1 500ml. bag @ 8.926 UNITS/KG/HR 20 mls/hr IV .Q24H [facility] Rx #:[id number] Nitroglycerin-D5w Pmx 50 9 mg In Dextrose/Water 1 250ml.bag @ 5 MCG/MIN 1.5 mls/hr IV .Q24H [facility] Rx#: [id number] Sodium Chloride 0.9% 1, 150 000 ml @ 75 mls/hr IV . [id number] [facility] Rx#:[id number] Intake, IV Titration 176.5 654.5 Amount Heparin Sodium,Porcine/ 119 D5w Pmx 25,000 unit In Dextrose/Water 1 500ml. bag @ 8.926 UNITS/KG/HR 20 mls/hr IV .Q24H [facility] Rx #:[id number] Magnesium Sulfate-D5w Pmx 100 1 gm In Dextrose/Water 1 100ml.bag @ 100 mls/hr IVPB ONCE [facility] Rx#: [id number] Nitroglycerin-D5w Pmx 50 1.5 10.5 mg In Dextrose/Water 1 250ml.bag @ 5 MCG/MIN 1.5 mls/hr IV .Q24H [facility] Rx#: [id number] Sodium Chloride 0.9% 1, 75 525 000 ml @ 75 mls/hr IV . [id number] [facility] Rx#:[id number] Oral 210 0 Other: Voiding Method Toilet Weight 112.2 kg 112.2 kg 12/07/16 05:25 12/06/16 17:00 EKG Interpretations (text) EKG shows a normal sinus rhythm with inferior Q waves Assessment and Plan Plan: Assessment and plan #1 symptoms of midsternal chest tightness with associated shortness of breath and diaphoresis, positive palpitations. Troponins negative 3. EKG shows a normal sinus rhythm with evidence of old inferior wall [place]. #2 hypertension #3 hyperlipidemia #4 diabetes #5 nicotine dependence #6 hypomagnesima, replaced. Plan We will repeat an echocardiogram with Doppler study. Patient was advised to either undergo cardiac catheterization or stress testing, he preferred to have a stress test done. We will discontinue the IV nitroglycerin as the patient is complaining of headache. We will discontinue the IV heparin. Continue aspirin , lisinopril, metoprolol tartrate, Lipitor, and Effient. Further recommendations to follow. DNP note has been reviewed, I agree with a documented findings and plan of care. Patient was seen and examined.
[2016-12-07 08:30] LABS: Hemoglobin A1C 9.2 % (4.2-6.1)
[2016-12-07] MEDS ORDERED: LISINOPRIL 10 MG TAB PO SCH (09:00)
[2016-12-07] MEDS ORDERED: ASPIRIN 325 MG TAB PO SCH (09:00)
[2016-12-07] MEDS ORDERED: PRASUGREL 10 MG TAB PO SCH ×2 (09:00)
--- NOTE | 2016-12-07 10:50 | ECHOF ---
Referral Reason:chest pain MEASUREMENTS -------- HEIGHT: 175.3 cm WEIGHT: 112.0 kg BP: 120/60 RVIDd: 3.4 cm (< 3.3) IVSd: 1.5 cm (0.6 - 1.1) LVIDd: 4.8 cm (3.9 - 5.3) LVPWd: 1.4 cm (0.6 - 1.1) IVSs: 1.8 cm LVIDs: 3.6 cm LVPWs: 1.5 cm LA Diam: 3.8 cm (2.7 - 3.8) LAESV Index (A-L): 20.29 ml/m Ao Diam: 3.0 cm (2.0 - 3.7) AV Cusp: 1.7 cm (1.5 - 2.6) LA Diam: 4.1 cm (2.7 - 3.8) MV EXCURSION: 22.213 mm (> 18.000) MV EF SLOPE: 91 mm/s (70 - 150) EPSS: 0.3 cm MV E Flaco: 0.83 m/s MV DecT: 211 ms MV A Flaco: 0.80 m/s MV E/A Ratio: 1.04 RAP: 5.00 mmHg RVSP: 11.31 mmHg FINDINGS -------- Sinus rhythm. This was a techncally difficult study with suboptimal views, , Definity utilized for enhancement of images. There is moderate concentric left ventricular hypertrophy. Overall left ventricular systolic function is normal with, an EF between 55 - 60 %. The right ventricle is normal in size. The right atrial size is normal. 1.5MG OF DEFINITY UTLIZED: 2 OR MORE WALL SEGMENTS NOT VISUALIZED. There is mild aortic valve sclerosis. There is no evidence of aortic regurgitation. Mild mitral regurgitation is present. Mild tricuspid regurgitation present. There is no evidence of pulmonary hypertension. The right ventricular systolic pressure, as measured by Doppler, is 11.31mmHg. There is no pulmonic regurgitation present. The aortic root size is normal. There is no pericardial effusion. CONCLUSIONS -------- 1. This was a techncally difficult study with suboptimal views, , Definity utilized for enhancement of images. 2. There is moderate concentric left ventricular hypertrophy. 3. Overall left ventricular systolic function is normal with, an EF between 55 - 60 %. 4. 1.5MG OF DEFINITY UTLIZED: 2 OR MORE WALL SEGMENTS NOT VISUALIZED. 5. There is mild aortic valve sclerosis. 6. Mild mitral regurgitation is present. 7. There is no evidence of pulmonary hypertension. 8. The right ventricular systolic pressure, as measured by Doppler, is 11.31mmHg. SHOT EXAMINER: Ginette Aguilar RDCS
--- NOTE | 2016-12-07 11:15 | P.STRESS ---
- Stress Test Note Stress Test Results/Findings: Exam Performed: NM stress lexiscan cardiolite Exam Date: 12/07/16 Reason for Exam: chest pain Height: 5 ft 9 in Weight: 112.2 kg Protocol: Soco Scan Stage: N/A Duration of Exercise: N/a Resting Heart Rate: 87 Resting Blood Pressure: 159/89 Maximum Achieved Heart Rate: 108 Maximum Achieved Blood Pressure: 163/88 85% PMHR: 149 100% PMHR: 175 METS: N/A Technologist Comment: Stress Test Results/Findings: Patient was given Lexiscan injection over a period of 15 seconds. Resting EKG shows a normal sinus rhythm with nonspecific T-wave changes no ST segment depression suggestive of ischemia is noted. The nuclear study will follow.
[2016-12-07 12:02] LABS: Glucose,Whole Blood 197 mg/dL (75-99)
--- NOTE | 2016-12-07 12:06 | NM ---
EXAMINATION TYPE: NM stress lexiscan cardiolite DATE OF EXAM: 12/07/2016 COMPARISON: NONE HISTORY: Chest pain per order. Chest pain and difficulty breathing per patient. History of palpitatio ns, angina, hypertension, diabetes, hypercholesteremia, tobacco use 15 pack-years, family history of heart attack, personal history of heart attack, and personal history of heart catheterization with 3 angioplasty all per patient. TECHNIQUE: After the intravenous administration of 10.53 mCi Tc 99m Sestamibi - Cardiolite resting S PECT images acquired 45 minutes post injection. The patient received 0.4mg Lexiscan, 27.2 mCi Tc 99m Sestamibi - Stress images obtained [address] injection FINDINGS: Review of stress and rest SPECT images demonstrates no convincing evidence of reversible ischemia. Im proved radiotracer uptake is seen on stress images versus rest images. Gated analysis shows overall e jection fraction of 52% on stress imaging, only 36% on rest imaging. End-diastolic volume is slightly elevated at 138 cc. There is satisfactory motion present. IMPRESSION: No convincing scintigraphic evidence for reversible ischemia.
[2016-12-07] MEDS: METOPROLOL TARTRATE 25 MG TAB PO SCH (12:11)
[2016-12-07 12:39] VITALS: BP 163/92; PULSE 85; RESP 18; TEMP 98.2
--- NOTE | 2016-12-08 08:13 | HP ---
CHIEF COMPLAINT: Chest pain. HISTORY OF PRESENT ILLNESS: This 46-year-old gentleman with past medical history of multiple medical problems including hypertension, history of myocardial infarction, hyperlipidemia was admitted with complaints of chest pain. The pain was felt in the anterior part of the chest. Patient had some dizziness also. The patient had two episodes of nausea and vomiting and patient came to [facility] and admitted for further evaluation and treatment. The initial evaluation showed evidence of myocardial infarction. The patient had stress test which was negative also. Blood sugar was mildly elevated. There is no history of fever, rigors. No history of headache, loss of consciousness or seizures. PAST MEDICAL HISTORY: History of CAD, history of gastroesophageal reflux disease, hypertension, hyperlipidemia, history of pneumonia, history of diabetes mellitus, history of CAD and stent. Medications prior to admission include: 1. Glucophage 100 mg p.o bid 2. Effient 10 mg p.o daily. 3. Nitrostat 0.4 sublingual p.r.n 4. Multivitamins 1 p.o daily. 5. Lopressor 25 mg p.o bid 6. Prinivil 20 mg p.o daily. 7. [place] 10 mg w tablets 2 tablets q.6 p.r.n 8. Lipitor 80 mg q.h.s 9. Aspirin 325 mg. 10. Pepcid 20 mg daily. ALLERGIES: None. FAMILY HISTORY: History of CHF and CAD in the family. SOCIAL HISTORY: History of smoking, history of alcohol. REVIEW OF SYSTEMS: ENT: No diminished hearing or vision. CARDIOVASCULAR: As mentioned earlier. RESPIRATORY: As mentioned earlier. GI: As mentioned earlier. : No dysuria. NERVOUS SYSTEM: No numbness or weakness. ALLERGY/IMMUNOLOGY: No asthma or hayfever. MUSCULOSKELETAL: As mentioned earlier. HEMATOLOGY/ONCOLOGY: No history of anemia. ENDOCRINE: Diabetes. CONSTITUTIONAL: As mentioned earlier. DERMATOLOGY: Negative. RHEUMATOLOGY: Negative. PSYCHIATRY: As mentioned earlier. PHYSICAL EXAMINATION: The patient is alert and oriented x3. Pulse is 85, blood pressure 160/92, respirations 18, temperature 98.1, pulse ox 90% on room air. HEENT: Conjunctivae normal. Oral mucosa moist. NECK: No jugular venous distention. No carotid bruit. No lymph node enlargement. CARDIOVASCULAR: S1, S2. RESPIRATORY: Breath sounds diminished at the bases. No rhonchi, no crackles. ABDOMEN: Soft, obese, nontender, no mass palpable. LEGS: No edema, no swelling. NERVOUS SYSTEM: Higher function as mentioned. Moves all four limbs. No focal motor sensory deficits. LYMPHATICS: No lymphadenopathy in the neck, axillae or groin. SKIN: No rash, ulcer or bleeding. Labs at this time show WBC 6.5, hemoglobin 13.4, glucose 230. ASSESSMENT: 1. Chest pain, myocardial infarction ruled out with negative stress test. Possible gastroesophageal reflux disease. 2. History of coronary artery disease and myocardial infarction. 3. Hypertension. 4. Hyperlipidemia. 5. History of diabetes mellitus type 2. RECOMMENDATIONS AND DISCUSSION: In this 46-year-old gentleman who presented with multiple complex medical problems, we well monitor the patient closely. Continue the current medications. Patient improved significantly. Patient will be discharged ( ) Cardiology. 1. Discharge diet is cardiac. 2. Activity is limited until follow up. 3. Follow up with Dr. Araujo in 2 to 3 days. 4. Follow with Cardiology until recommended. 5. Medications as before. 6. Aspirin 325 daily. 7. Lipitor 80 mg q.h.s 8. Pepcid 20 mg p.o daily. 9. Hydrocodone 2 mg two tablets q.6 p.r.n 10. Prinivil 10 mg p.o daily. 11. Metformin/Glucophage 1000 mg p.o bid 12. Lopressor 25 mg p.o bid 13. Multivitamins 1 p.o daily. 14. Nitrostat 0.4 sublingual. 15. Effient 10 mg p.o daily. MTDD
== END 2016-12-07 16:09 | disposition home or self-care (01) | DRG 392 ==
LOC: EC 16:42 → 6SEL 19:50
PROVIDERS: ADMIT Internal Medicine; ATTEND Internal Medicine
DX: K21.9 Gastro-esophageal reflux disease without esophagitis (principal); E83.42 Hypomagnesemia; I10 Essential (primary) hypertension; F17.210 Nicotine dependence, cigarettes, uncomplicated; I25.2 Old myocardial infarction; E78.5 Hyperlipidemia, unspecified; E11.9 Type 2 diabetes mellitus without complications; J45.909 Unspecified asthma, uncomplicated; I25.10 Atherosclerotic heart disease of native coronary artery without angina pectoris; Z79.82 Long term (current) use of aspirin; Z79.02 Long term (current) use of antithrombotics/antiplatelets; Z79.84 Long term (current) use of oral hypoglycemic drugs; Z79.899 Other long term (current) drug therapy; Z95.5 Presence of coronary angioplasty implant and graft; Z87.442 Personal history of urinary calculi; Z87.01 Personal history of pneumonia (recurrent); Z82.49 Family history of ischemic heart disease and other diseases of the circulatory system
CPT/HCPCS: 36415; 71020; 78452; 80053; 82272; 82550; 82553; 83036; 83735; 83880; 84484; 85025; 85610; 85730; 93005; 93017; 93306

== ENCOUNTER 2017-07-28 20:52 | Inpatient (IN) | payer OTHER ==
[2017-07-28 21:34] LABS: Basophils % (A) 1 %; Eosinophils # (A) 0.2 k/uL (0-0.7); Eosinophils % (A) 3 %; HCT 43.2 % (39.0-53.0); HGB 15.1 gm/dL (13.0-17.5); Lymphocytes # (A) 1.1 k/uL (1.0-4.8); Lymphocytes % (A) 17 %; MCH 32.6 pg (25.0-35.0); MCV 93.1 fL (80.0-100.0); Mean Platelet Volume 7.9; Monocytes # (A) 0.6 k/uL (0-1.0); Monocytes % (A) 9 %; Neutrophils # (A) 4.4 k/uL (1.3-7.7); Neutrophils % (A) 67 %; Platelet Count 135 k/uL (150-450); RBC 4.63 m/uL (4.30-5.90); RDW 13.4 % (11.5-15.5); WBC 6.7 k/uL (3.8-10.6)
[2017-07-28 21:44] LABS: Partial Thromboplastin Time 23.2 sec (22.0-30.0); Prothrombin Time 9.7 sec (9.0-12.0)
[2017-07-28 21:49] LABS: ALT 202 U/L (21-72); AST 67 U/L (17-59); Albumin 3.7 g/dL (3.5-5.0); Alkaline Phosphatase 148 U/L (38-126); Anion Gap 8 mmol/L; Blood Urea Nitrogen 19 mg/dL (9-20); Calcium 9.6 mg/dL (8.4-10.2); Carbon Dioxide 25 mmol/L (22-30); Chloride 105 mmol/L (98-107); D-Dimer 0.5 mg/L FEU (<0.60); Glucose 240 mg/dL (74-99); Magnesium 1.4 mg/dL (1.6-2.3); Potassium 4.6 mmol/L (3.5-5.1); Sodium 138 mmol/L (137-145); Total Bilirubin 0.6 mg/dL (0.2-1.3); Total Protein 6.2 g/dL (6.3-8.2)
--- NOTE | 2017-07-28 21:50 | XR ---
EXAMINATION: XR chest 2V DATE AND TIME: 07/28/2017 9:44 PM ORDERING PROVIDER: Zack Galvez DO CLINICAL INDICATION: Chest Pain TECHNIQUE: AP and lateral. COMPARISON: 02/16/2017 DESCRIPTION: Relatively low lung inflation at the moment of x-ray exposure. Given that factor, the lungs appear to be clear. The pleural spaces are negative. The cardiac silhouette and skeletal structures and soft tissues are unremarkable. IMPRESSION: NO ACUTE PROCESS.
--- NOTE | 2017-07-28 22:16 | ED ---
General Adult HPI - General Chief complaint: Chest Pain Stated complaint: chest pain/blurred vision/left arm burning Time Seen by Provider: 07/28/17 21:13 Source: patient, RN notes reviewed, old records reviewed Mode of arrival: wheelchair Limitations: no limitations - History of Present Illness Initial comments: This is a 47-year-old male to the ER for evaluation. This patient presents today for evaluation regards to chest pain. Patient chest pain not feeling well nausea. Patient has significant heart history with multiple recent placement of stents. Patient states he denies fever. Does have occasional shortness of breath. No current cough congestion no travel history no sick contacts - Related Data Home Medications Medication Instructions Recorded Confirmed HYDROcodone/APAP 10-325MG [[place] 1 - 2 tab PO Q6H PRN 12/06/16 07/28/17 10-325] Multivitamins, Thera [Multivitamin 1 tab PO DAILY 12/06/16 07/28/17 (formulary)] Aspirin EC [Ecotrin Low Dose] 81 mg PO DAILY 02/16/17 07/28/17 Fish Oil/Dha/Epa [Fish Oil 1,200 1 cap PO DAILY 02/16/17 07/28/17 mg Fish Oil] Metoprolol Tartrate [Lopressor] 50 mg PO BID 02/16/17 07/28/17 Glimepiride [Amaryl] 2 mg PO BID 07/28/17 07/28/17 Lisinopril [Prinivil] 5 mg PO DAILY 07/28/17 07/28/17 Ranitidine HCl 150 mg PO BID 07/28/17 07/28/17 Previous Rx's Medication Instructions Recorded Atorvastatin [Lipitor] 80 mg PO HS #30 tab 11/08/16 Clopidogrel [Plavix] 75 mg PO DAILY #30 tablet 12/07/16 Nitroglycerin Sl Tabs [Nitrostat] 0.4 mg SUBLINGUAL Q5M PRN #25 tab 02/18/17 metFORMIN HCL [Glucophage] 1,000 mg PO BID #60 tab 02/18/17 Allergies Allergy/AdvReac Type Severity Reaction Status Date / Time No Known Allergies Allergy Verified 07/28/17 21:28 Review of Systems ROS Statement: Those systems with pertinent positive or pertinent negative responses have been documented in the HPI. ROS Other: All systems not noted in ROS Statement are negative. Past Medical History Past Medical History: Coronary Artery Disease (CAD), Diabetes Mellitus, GERD/ Reflux, Hyperlipidemia, Hypertension, Myocardial Infarction (MA), Osteoarthritis (OA), Pneumonia, Renal Disease Additional Past Medical History / Comment(s): NIDDM type II, chronic lumbar pain , colitis, athrtitis bilateral hands/wrists, nephrolithiasis. Last Myocardial Infarction Date:: 11/02/16 History of Any Multi-Drug Resistant Organisms: None Reported Past Surgical History: Heart Catheterization With Stent, Orthopedic Surgery Additional Past Surgical History / Comment(s): 11/02/16 PCI with stent to RCA, kidney stone basketing, failed L4-L5 fusions x 2, colonoscopy. Past Anesthesia/Blood Transfusion Reactions: No Reported Reaction Date of Last Stent Placement:: 11/02/16 Past Psychological History: No Psychological Hx Reported Smoking Status: Current every day smoker Past Alcohol Use History: Daily Past Drug Use History: None Reported - Past Family History Father Family Medical History: Congestive Heart Failure (CHF), Coronary Artery Disease (CAD), CVA/TIA, Myocardial Infarction (MA) Additional Family Medical History / Comment(s): Father at the age of 63 yrs. Pt doesn't recall age of father's MA. Mother Family Medical History: Cancer Additional Family Medical History / Comment(s): Mother had multiple cancers. She is living. General Exam Limitations: no limitations General appearance: alert, in no apparent distress Head exam: Present: atraumatic, normocephalic, normal inspection Eye exam: Present: normal appearance, PERRL, EOMI. Absent: scleral icterus, conjunctival injection, periorbital swelling ENT exam: Present: normal exam, mucous membranes moist Neck exam: Present: normal inspection. Absent: tenderness, meningismus, lymphadenopathy Respiratory exam: Present: normal lung sounds bilaterally. Absent: respiratory distress, wheezes, rales, rhonchi, stridor Cardiovascular Exam: Present: regular rate, normal rhythm, normal heart sounds. Absent: systolic murmur, diastolic murmur, rubs, gallop, clicks GI/Abdominal exam: Present: soft, normal bowel sounds. Absent: distended, tenderness, guarding, rebound, rigid Extremities exam: Present: normal inspection, full ROM, normal capillary refill. Absent: tenderness, pedal edema, joint swelling, calf tenderness Back exam: Present: normal inspection Neurological exam: Present: alert, oriented X3, CN II-XII intact Psychiatric exam: Present: normal affect, normal mood Skin exam: Present: warm, dry, intact, normal color. Absent: rash Course Vital Signs 07/28/17 07/28/17 21:02 21:17 Temperature 97.8 F Pulse Rate 90 85 Respiratory 19 18 Rate Blood Pressure 213/99 183/86 O2 Sat by Pulse 96 97 Oximetry - Reevaluation(s) Reevaluation #1: 07/28/17 22:15 Patient's medical records reviewed EKG Findings - EKG Comments: EKG Findings:: EKG shows sinus rhythm rate of 83, WI 154, QRS 86, QTc 4:15 patient does have T-wave inversion in lead 3 Medical Decision Making - Medical Decision Making 27 male the ER for evaluation with chest pain. Not feeling well weakness. Just like prior history of MA. Patient has mild elevated troponin, no acute changes on EKG. We'll admit for anticoagulation 0 troponins telemetry and cardiology evaluation - Lab Data Result diagrams: 07/28/17 21:05 07/28/17 21:05 Lab Results 07/28/17 07/28/17 07/28/17 Range/Units 21:05 21:05 21:05 WBC 6.7 (3.8-10.6) k/uL RBC 4.63 (4.30-5.90) m/uL Hgb 15.1 (13.0-17.5) gm/dL Hct 43.2 (39.0-53.0) % MCV 93.1 (80.0-100.0) fL MCH 32.6 (25.0-35.0) pg MCHC 35.0 (31.0-37.0) g/dL RDW 13.4 (11.5-15.5) % Plt Count 135 L (150-450) k/uL Neutrophils % 67 % Lymphocytes % 17 % Monocytes % 9 % Eosinophils % 3 % Basophils % 1 % Neutrophils # 4.4 (1.3-7.7) k/uL Lymphocytes # 1.1 (1.0-4.8) k/uL Monocytes # 0.6 (0-1.0) k/uL Eosinophils # 0.2 (0-0.7) k/uL Basophils # 0.0 (0-0.2) k/uL PT 9.7 (9.0-12.0) sec INR 1.0 (<1.2) APTT 23.2 (22.0-30.0) sec D-Dimer 0.50 (<0.60) mg/L FEU Sodium (137-145) mmol/L Potassium (3.5-5.1) mmol/L Chloride (98-107) mmol/L Carbon Dioxide (22-30) mmol/L Anion Gap mmol/L BUN (9-20) mg/dL Creatinine (0.66-1.25) mg/dL Est GFR (CKD-EPI)AfAm (>60 ml/min/1.73 sqM) Est GFR (CKD-EPI)NonAf (>60 ml/min/1.73 sqM) Glucose (74-99) mg/dL Calcium (8.4-10.2) mg/dL Magnesium (1.6-2.3) mg/dL Total Bilirubin (0.2-1.3) mg/dL AST (17-59) U/L ALT (21-72) U/L Alkaline Phosphatase (38-126) U/L Total Creatine Kinase 58 (55-170) U/L CK-MB (CK-2) 0.6 (0.0-2.4) ng/mL CK-MB (CK-2) Rel Index 1.0 Troponin I 0.044 H* (0.000-0.034) ng/mL Total Protein (6.3-8.2) g/dL Albumin (3.5-5.0) g/dL 07/28/17 Range/Units 21:05 WBC (3.8-10.6) k/uL RBC (4.30-5.90) m/uL Hgb (13.0-17.5) gm/dL Hct (39.0-53.0) % MCV (80.0-100.0) fL MCH (25.0-35.0) pg MCHC (31.0-37.0) g/dL RDW (11.5-15.5) % Plt Count (150-450) k/uL Neutrophils % % Lymphocytes % % Monocytes % % Eosinophils % % Basophils % % Neutrophils # (1.3-7.7) k/uL Lymphocytes # (1.0-4.8) k/uL Monocytes # (0-1.0) k/uL Eosinophils # (0-0.7) k/uL Basophils # (0-0.2) k/uL PT (9.0-12.0) sec INR (<1.2) APTT (22.0-30.0) sec D-Dimer (<0.60) mg/L FEU Sodium 138 (137-145) mmol/L Potassium 4.6 (3.5-5.1) mmol/L Chloride 105 (98-107) mmol/L Carbon Dioxide 25 (22-30) mmol/L Anion Gap 8 mmol/L BUN 19 (9-20) mg/dL Creatinine 0.75 (0.66-1.25) mg/dL Est GFR (CKD-EPI)AfAm >90 (>60 ml/min/1.73 sqM) Est GFR (CKD-EPI)NonAf >90 (>60 ml/min/1.73 sqM) Glucose 240 H (74-99) mg/dL Calcium 9.6 (8.4-10.2) mg/dL Magnesium 1.4 L (1.6-2.3) mg/dL Total Bilirubin 0.6 (0.2-1.3) mg/dL AST 67 H (17-59) U/L ALT 202 H (21-72) U/L Alkaline Phosphatase 148 H (38-126) U/L Total Creatine Kinase (55-170) U/L CK-MB (CK-2) (0.0-2.4) ng/mL CK-MB (CK-2) Rel Index Troponin I (0.000-0.034) ng/mL Total Protein 6.2 L (6.3-8.2) g/dL Albumin 3.7 (3.5-5.0) g/dL - Radiology Data Radiology results: report reviewed (Chest x-rays negative), image reviewed Critical Care Time Critical Care Time: Yes Total Critical Care Time: 31 Disposition Clinical Impression: Unstable angina, Chest pain Disposition: ADMITTED IP TO THIS [facility] Condition: Serious Referrals: Guzman Araujo MD [Primary Care Provider] - 1-2 days
[2017-07-28 22:25] LABS: Creatine Kinase MB 0.6 ng/mL (0.0-2.4); Troponin I 0.044 ng/mL (0.000-0.034)
[2017-07-28] MEDS ORDERED: NITROGLYCERIN SL TABS 0.4 MG TAB SUBLINGUAL PRN (22:40)
[2017-07-28] MEDS ORDERED: HEPARIN SODIUM,PORCINE 5,000 UNIT/ML 1 ML VIAL IV ONE (22:40)
[2017-07-28] MEDS ORDERED: MORPHINE SULFATE/PF 10MG/10ML VL IV PRN (22:40)
[2017-07-28] MEDS ORDERED: HEPARIN SODIUM,PORCINE 5,000 UNIT/ML 1 ML VIAL IV PRN (22:40)
[2017-07-28] MEDS ORDERED: HEPARIN SOD,PORK IN 0.45% NACL 25,000 UNIT in 0.45% NACL 1 500ML.BAG IV SCH (22:45)
[2017-07-28] MEDS: MAGNESIUM SULFATE-D5W PMX 1 GM in DEXTROSE/WATER 1 100ML.BAG IVPB SCH (23:05)
[2017-07-29] MEDS: MAGNESIUM SULFATE-D5W PMX 1 GM in DEXTROSE/WATER 1 100ML.BAG IVPB SCH (00:30)
[2017-07-29] MEDS ORDERED: cloNIDine HCL 0.1 MG TAB PO PRN (01:32)
[2017-07-29] MEDS ORDERED: TEMAZEPAM 15 MG CAP PO PRN (01:32)
[2017-07-29 02:49] LABS: Creatine Kinase MB 0.5 ng/mL (0.0-2.4)
[2017-07-29 03:09] LABS: Troponin I 0.035 ng/mL (0.000-0.034)
[2017-07-29 05:40] LABS: Glucose,Whole Blood 236 mg/dL (75-99)
[2017-07-29 06:21] LABS: Basophils % (A) 1 %; Eosinophils # (A) 0.2 k/uL (0-0.7); Eosinophils % (A) 3 %; HCT 37.4 % (39.0-53.0); HGB 13.1 gm/dL (13.0-17.5); Lymphocytes # (A) 1.3 k/uL (1.0-4.8); Lymphocytes % (A) 20 %; MCHC 35.2 g/dL (31.0-37.0); MCV 93.8 fL (80.0-100.0); Mean Platelet Volume 7.9; Monocytes # (A) 0.6 k/uL (0-1.0); Monocytes % (A) 8 %; Neutrophils # (A) 4.3 k/uL (1.3-7.7); Neutrophils % (A) 65 %; Platelet Count 124 k/uL (150-450); RBC 3.98 m/uL (4.30-5.90); RDW 13.4 % (11.5-15.5); WBC 6.7 k/uL (3.8-10.6)
[2017-07-29] MEDS: INSULIN ASPART 100 UNIT/ML 1 ML 10 ML VIAL SQ SCH ×4 (06:25→21:11)
[2017-07-29 06:26] LABS: ALT 147 U/L (21-72); AST 36 U/L (17-59); Albumin 2.9 g/dL (3.5-5.0); Alkaline Phosphatase 128 U/L (38-126); Anion Gap 6 mmol/L; Blood Urea Nitrogen 23 mg/dL (9-20); Calcium 8.6 mg/dL (8.4-10.2); Carbon Dioxide 27 mmol/L (22-30); Chloride 103 mmol/L (98-107); Cholesterol 132 mg/dL (<200); Glucose 222 mg/dL (74-99); HDL Cholesterol 48 mg/dL (40-60); Magnesium 1.7 mg/dL (1.6-2.3); Potassium 4.4 mmol/L (3.5-5.1); Sodium 136 mmol/L (137-145); Total Bilirubin 0.4 mg/dL (0.2-1.3); Total Protein 5.1 g/dL (6.3-8.2); Triglycerides 478 mg/dL (<150)
[2017-07-29] MEDS ORDERED: metFORMIN 500 MG TAB PO SCH (07:30)
[2017-07-29] MEDS ORDERED: PANTOPRAZOLE 40 MG TABLET PO SCH (07:30)
[2017-07-29] MEDS ORDERED: ATORVASTATIN 80 MG TAB PO STA (08:17)
[2017-07-29] MEDS ORDERED: ALPRAZolam 0.25 MG TAB PO PRN (08:17)
[2017-07-29] MEDS ORDERED: ASPIRIN 325 MG TAB PO STA (08:17)
[2017-07-29] MEDS ORDERED: SODIUM CHLORIDE 0.9% 1,000 ML in EMPTY BAG 1 BAG IV ONE (08:17)
[2017-07-29] MEDS ORDERED: NITROGLYCERIN SL TABS 0.4 MG TAB SUBLINGUAL PRN (08:17)
[2017-07-29] MEDS: ASPIRIN 325 MG TAB PO SCH (08:20)
[2017-07-29] MEDS: MULTIVITAMINS, THERA 1 EACH TAB PO SCH (08:20)
[2017-07-29] MEDS: LISINOPRIL 5 MG TAB PO SCH (08:20)
[2017-07-29] MEDS: FAMOTIDINE 20 MG TAB PO SCH ×2 (08:20→20:32)
[2017-07-29] MEDS: ATORVASTATIN 80 MG TAB PO SCH (08:20)
--- NOTE | 2017-07-29 08:58 | HP ---
HISTORY AND PHYSICAL DATE IS SERVICE: 07/28/2017 CHIEF COMPLAINT: Chest pain. HISTORY OF PRESENT ILLNESS: This is a 47-year-old gentleman with a past medical history of extensive coronary artery disease, and diabetes mellitus type 2, hypertension, hyperlipidemia, myocardial infarction, DJD, history of CAD stent being followed by Dr. Araujo in the outpatient setting, was admitted with left arm burning pain and the patient also did have some chest pain also. The patient came to [facility] admitted for further evaluation on the left. #8 pain thank and the patient came to [facility] and was admitted for further evaluation and treatment. The troponins were found to be slightly elevated initially at 0.04. Patient also had multiple further abnormalities including elevated LFTs also. There is no history of fever or rigors. No history of headache, loss of consciousness, or seizures. PAST MEDICAL HISTORY: History of CAD stent, diabetes, GERD, hypertension, hyperlipidemia, history of myocardial infarction, history of DJD. MEDICATIONS: Prior to admission include: 1. Glucophage 5000 mg p.o. b.i.d. 2. Ranitidine 150 mg p.o. daily. 3. Nitro 0.4 p.r.n. 4. Multivitamins. 5. Lopressor 50 mg p.o. b.i.d. 6. Prinivil 5 mg p.o. daily. 7. [place] 1 to 2 tablets q.6 [id number]. Next Amaryl 2 mg p.o. b.i.d. 8. Fish oil 1 p.o. daily. 9. Plavix 10 mg p.o. daily. 10.Lipitor 80 mg q.h.s. 11.Ecotrin 81 mg p.o. daily. ALLERGIES: None. FAMILY HISTORY: History of CHF, CAD, CVA, history of myocardial infarction. SOCIAL HISTORY: Remote history of smoking. History of current alcohol intake, occasionally. . REVIEW OF SYSTEMS: ENT: No diminished vision, diminished hearing. CARDIOVASCULAR SYSTEM: As mentioned earlier. RESPIRATORY: As mentioned earlier. GI: No nausea. : No dysuria. NERVOUS SYSTEM: No numbness or weakness. ALLERGY/IMMUNOLOGY: As mentioned earlier. MUSCULOSKELETAL: As mentioned earlier. HEMATOLOGY/ONCOLOGY: No history of anemia. ENDOCRINE: No history of diabetes. CONSTITUTIONAL: As mentioned earlier. DERMATOLOGY: Negative. RHEUMATOLOGY: Negative PSYCHIATRY: As mentioned earlier. PHYSICAL EXAMINATION: The patient is alert and oriented x3. Pulse is 90, blood pressure 169/80, respirations 18, temperature 98.2, pulse ox 98% on room air. HEENT: Oral mucosa moist. Neck is no jugular venous distention. No lymph node enlargement. CARDIOVASCULAR SYSTEM: S1, S2, muffled. RESPIRATORY: Breath sounds diminished at the bases, a few scattered rhonchi. No crackles. ABDOMEN: Soft, nontender. No mass palpable. LEGS: No edema no swelling. NERVOUS SYSTEM: Higher functions as mentioned earlier, moves all 4 limbs, no Coumadin. LYMPHATICS: No lymph node enlargement in the neck or axillae. SKIN: No ulcers, rash, bleeding. LABS: Platelets 135. CBC within normal limits, otherwise AST is 67, ALT is 202 and troponin 0.04. ASSESSMENT: 1. Chest pain and the left arm pain, possible acute non ST elevation myocardial infarction. 2. Troponin 0.044. 3. History of coronary artery disease, myocardial infarction and stent. 4. Diabetes mellitus type 2. 5. Gastroesophageal reflux disease. 6. Hyperlipidemia. 7. History of thrombocytopenia. 8. Myocardial infraction. 9. History of degenerative joint disease. 10.History of pneumonia. 11.History of colitis. 12.Nephrolithiasis. 13.History of EtOH. 14.History of nicotine dependence. RECOMMENDATIONS AND DISCUSSION: In this 47-year-old gentleman who presented with multiple complex medical issues, will monitor the patient closely. Continue with the current management and Cardiology consultation, rule out myocardial infarction and protocol. Alcohol cessation advised. Otherwise repeat labs. Continue medication at present. Guarded prognosis because of multiple complex medical issues. Further recommendations to follow. A copy of this will be forwarded to Dr. Araujo who is the primary physician. Please see orders for details. The patient also had multiple abnormal labs which will be followed and evaluated during the hospitalization as well. See orders for details. Monitor blood sugars closely. MMODL / IJN: [id number] /
[2017-07-29] MEDS ORDERED: CLOPIDOGREL 75 MG TAB PO SCH (09:00)
[2017-07-29] MEDS ORDERED: NON-FORMULARY DRUG (Aspirin Ec 81 MG) PO SCH (09:00)
--- NOTE | 2017-07-29 09:01 | CONS ---
CONSULTATION CHIEF COMPLAINT: Chest pain. Luis A is a 47-year-old gentleman with history of coronary artery disease, status post multivessel angioplasty including right coronary artery and circumflex coronary artery, who comes to hospital complaining of precordial chest pain. He describes it as precordial chest pressure, mild to moderate intensity came on at rest with radiation to the left arm. It gradually subsided after he came to the emergency room. At the time of my evaluation, he appears comfortable at rest. He had one more episode of chest discomfort yesterday. Patient underwent cardiac catheterization in February of 2017 that revealed severe disease involving the PLV branch of the right coronary artery, mild left main stenosis, patent stent within the circumflex coronary artery and intermediate disease in LAD. The patient had stenting of the PLV branch of the RCA at that time and a balloon angioplasty of the in-stent restenosis of the mid RCA. He has not had any further testing since. Comes in complaining of chest pain on this admission. The patient had an echo at that time that revealed normal LV function. The EKG on this admission revealed sinus rhythm with evidence of prior inferior wall myocardial infarction without significant ST-T wave changes. PAST MEDICAL HISTORY: Past medical history is significant for [id number] diabetes, coronary artery disease, status post multivessel angioplasty, hypertension, and dyslipidemia. MEDICATIONS: Current medications include metformin 1000 b.i.d., Zantac 150 b.i.d., sublingual nitroglycerin p.r.n. basis, Lopressor 50 b.i.d., lisinopril 5 q. daily, [place], Amaryl, fish oil, Plavix 75 daily, Lipitor 80 daily, and aspirin. ALLERGIES: No known drug allergies. FAMILY HISTORY: Significant for premature coronary artery disease. His father from myocardial infarction. SOCIAL HISTORY: He quit smoking last October. There is history of ETOH abuse. Denies any drug abuse. REVIEW OF SYSTEMS: HEENT is unremarkable. CARDIAC: As described above. RESPIRATORY: Negative. GI: Negative. GENITOURINARY: Negative. PSYCHOSOCIAL: Negative. ENDOCRINE: Negative. HEMATOLOGICAL: Negative. DERM: Negative. CONSTITUTIONAL: Negative. ONCOLOGICAL: Negative. Rest of the systems review is not relevant. PHYSICAL EXAMINATION: On exam, he is comfortable at rest. Vital signs are stable. There is no jugular venous distention. Carotid upstroke is normal. There is no bruit. Chest exam reveals good air entry bilaterally. Heart exam reveals first and second heart sounds. No gallop. No murmur. No rub. Abdomen is soft, nontender. Examination of extremities did not reveal any edema. Peripheral pulses are felt. LABS: Labs show that the hemoglobin is 13.1, platelet count is 124. Potassium is 4.4. Creatinine is 0.7. Troponins are at 0.04 and 0.03. Lipid profile shows total cholesterol is 130, triglycerides are elevated, HDL is 48. Troponins were mildly elevated at 0.04 and 0.03. ASSESSMENT: 1. Unstable angina in a patient with known coronary artery disease, status post multivessel angioplasty. 2. Hypertension. 3. Dyslipidemia. 4. [id number] diabetes. PLAN: I advised the patient to undergo cardiac catheterization and depending upon the angiographic data, we will decide on further course of action. MEET / GALEN: [id number] /
[2017-07-29] MEDS ORDERED: SODIUM CHLORIDE 0.9% 50 ML IV ONE (09:25)
[2017-07-29] MEDS ORDERED: CLOPIDOGREL 75 MG TAB PO ONE (09:25)
[2017-07-29] MEDS ORDERED: LIDOCAINE 2% INJ 20 MG/ML SQ ONE ×2 (09:27→09:30)
[2017-07-29] MEDS: MIDAZOLAM 2 MG/2 ML VIAL IVP ONE ×2 (09:30→10:04)
[2017-07-29] MEDS ORDERED: fentaNYL (PF) 50 MCG/ML 2 ML AMP IVP ONE (09:32)
[2017-07-29] MEDS ORDERED: NITROGLYCERIN OINT 1 INCH/GM PACKET TOPICAL ONE (10:03)
[2017-07-29] MEDS ORDERED: ENALAPRILAT 1.25 MG/ML 1 ML VIAL IVP ONE (10:04)
[2017-07-29] MEDS ORDERED: IOHEXOL 350 MG/ML 125ML BOTTLE INJ ONE (10:06)
--- NOTE | 2017-07-29 10:49 | CC ---
CARDIAC CATHETERIZATION REPORT INDICATION: Unstable angina in a patient with known CAD status post prior extensive angioplasty involving circumflex coronary artery and right coronary artery. PROCEDURE NOTE: After obtaining informed consent, left heart catheterization, coronary angiogram were performed via the right femoral artery using standard Neel catheters. The patient tolerated the procedure well without any obvious immediate complications. Patient received moderate conscious sedation. Total sedation time was 14 minutes. FINDINGS: 1. HEMODYNAMICS: Left ventricular end-diastolic pressure is 20 mm. There is no significant gradient across the aortic valve. 2. LEFT VENTRICULOGRAM: Left ventriculogram is not performed. 3. ANGIOGRAPHIC DATA: 4. Left main coronary artery: Left main coronary artery is a long vessel that shows mild atherosclerotic plaque in its ostial portion and it divides into circumflex coronary artery and left anterior descending coronary artery. LAD shows 60% to 70% stenosis involving the ostial portion. Mid LAD shows mild atherosclerotic plaque. Circumflex coronary artery that was previously stented, the stent appears patent. The right coronary artery is a large dominant vessel. Where patient had angioplasty of the PLV branch with stent placement and distal RCA, also had an angioplasty and had a balloon angioplasty of the mid RCA that was the one that was done in February. The patient had prior angioplasty of the right and the circumflex. The right coronary artery is a large dominant vessel. There is a 95% stenosis proximally. The mid RCA appears okay. Before it bifurcates into PDA and PLV, there is a 60% stenosis. The PLV itself appears patent. PDA is diffusely diseased. CONCLUSION: Three-vessel coronary artery disease as described above with a new focal 99% stenosis involving proximal RCA and 60% to 70% ostial stenosis involving the LAD. The patient is a diabetic. I reviewed angiographic data with Dr. Flory Nicolas the on-call human resources assistant. We will obtain evaluation by cardiothoracic surgeon and if they feel he is a good surgical candidate, patient will have bypass surgery. If not, he may have an angioplasty of the right and continue to treat him medically. MMODL / IJN: [id number] /
[2017-07-29] MEDS ORDERED: RX INFO: IV CONTRAST WAS GIVEN 1 EACH MISC MISCELLANE PRN (11:06)
[2017-07-29] MEDS ORDERED: SODIUM CHLORIDE 0.9% 1,000 ML IV SCH (11:15)
[2017-07-29] MEDS ORDERED: HEPARIN SODIUM,PORCINE 5,000 UNIT/ML 1 ML VIAL IV PRN ×2 (11:24→20:42)
[2017-07-29 11:31] LABS: Glucose,Whole Blood 142 mg/dL (75-99)
[2017-07-29] MEDS ORDERED: MD COMMUNICATION TO PHARMACY 1 EACH MISC PO ONE ×3 (11:49)
[2017-07-29 12:06] LABS: Creatine Kinase MB 0.5 ng/mL (0.0-2.4); Troponin I 0.018 ng/mL (0.000-0.034)
[2017-07-29] MEDS: NON-FORMULARY DRUG (Fish Oil/Dha/Epa [Fish Oil 1,200 Mg Fish Oil] 1 CAP) PO SCH (12:07)
[2017-07-29] MEDS: GLIMEPIRIDE 2 MG TAB PO SCH ×2 (12:07→20:32)
[2017-07-29] MEDS: METOPROLOL TARTRATE 25 MG TAB PO SCH ×2 (12:07→20:32)
[2017-07-29 12:12] LABS: HCT 38.5 % (39.0-53.0); RBC 4.07 m/uL (4.30-5.90); WBC 5.2 k/uL (3.8-10.6)
[2017-07-29 12:13] LABS: Basophils % (A) 1 %; Eosinophils # (A) 0.2 k/uL (0-0.7); Eosinophils % (A) 4 %; Lymphocytes # (A) 1.2 k/uL (1.0-4.8); Lymphocytes % (A) 22 %; MCHC 33.8 g/dL (31.0-37.0); MCV 94.5 fL (80.0-100.0); Mean Platelet Volume 8.5; Monocytes # (A) 0.5 k/uL (0-1.0); Monocytes % (A) 9 %; Neutrophils # (A) 3.2 k/uL (1.3-7.7); Neutrophils % (A) 60 %; Platelet Count 126 k/uL (150-450); RDW 13.5 % (11.5-15.5)
[2017-07-29 12:23] LABS: Prothrombin Time 10.2 sec (9.0-12.0)
--- NOTE | 2017-07-29 12:29 | P.GSCN ---
History of Present Illness Consult date: 07/29/17 Reason for Consult: Evaluation for coronary artery bypass grafting Requesting physician: Nic Cortez History of present illness: Patient is a 47 years old gentleman, obese with metabolic syndrome, known coronary artery disease status post prior stenting to his RCA and circumflex arteries, who was admitted with an episode chest pain that occurred at rest and had subsided by the time he made to the emergency room. His blood work showed mild troponin elevation. EKG showed evidence of an old inferior wall myocardial infarction without ST elevation. Cardiac catheterization performed today showed severe proximal stenosis of the RCA, progression of stenosis of the proximal LAD and patent circumflex stent. We arel consulted for potential coronary artery bypass grafting evaluation. Patient continued to drink around a pint of Rhum per day and is smoking around quarter pack a day. His sugar has been fairly controlled. His compliant with his medication and in particular Plavix. Review of Systems Review of system negative except for the above. - Cardiovascular Reports chest pain Past Medical History Past Medical History: Coronary Artery Disease (CAD), Diabetes Mellitus, GERD/ Reflux, Hyperlipidemia, Hypertension, Myocardial Infarction ([place]), Osteoarthritis (OA), Pneumonia, Renal Disease Additional Past Medical History / Comment(s): NIDDM type II, chronic lumbar pain , colitis, athrtitis bilateral hands/wrists, nephrolithiasis. Last Myocardial Infarction Date:: 11/02/16 History of Any Multi-Drug Resistant Organisms: None Reported Past Surgical History: Heart Catheterization With Stent, Orthopedic Surgery Additional Past Surgical History / Comment(s): 11/02/16 PCI with stent to RCA, kidney stone basketing, failed L4-L5 fusions x 2, colonoscopy. Past Anesthesia/Blood Transfusion Reactions: No Reported Reaction Date of Last Stent Placement:: 11/02/16 Past Psychological History: No Psychological Hx Reported Additional Psychological History / Comment(s): Pt resides with his spouse. He is independent. He has a glucometer but no lancets or strips. Smoking Status: Former smoker Past Alcohol Use History: Daily Additional Past Alcohol Use History / Comment(s): Pt started smoking at the age of 17 yrs (1986) and depending on the day, he can smoke upwards to 1 PPD. He drinks alcohol daily-used to drink 1 pint a day of rum but states he has recently cut way back and some days doesn't drink at all. Past Drug Use History: None Reported - Past Family History Father Family Medical History: Congestive Heart Failure (CHF), Coronary Artery Disease (CAD), CVA/TIA, Myocardial Infarction ([place]) Additional Family Medical History / Comment(s): Father at the age of 63 yrs. Pt doesn't recall age of father's [place]. Mother Family Medical History: Cancer Additional Family Medical History / Comment(s): Mother had multiple cancers. She is living. Medications and Allergies Home Medications Medication Instructions Recorded Confirmed Type Atorvastatin [Lipitor] 80 mg PO HS #30 tab 11/08/16 07/28/17 Rx HYDROcodone/APAP 10-325MG [[place] 1 - 2 tab PO Q6H PRN 12/06/16 07/28/17 History 10-325] Multivitamins, Thera [Multivitamin 1 tab PO DAILY 12/06/16 07/28/17 History (formulary)] Clopidogrel [Plavix] 75 mg PO DAILY #30 tablet 12/07/16 07/28/17 Rx Aspirin EC [Ecotrin Low Dose] 81 mg PO DAILY 02/16/17 07/28/17 History Fish Oil/Dha/Epa [Fish Oil 1,200 1 cap PO DAILY 02/16/17 07/28/17 History mg Fish Oil] Metoprolol Tartrate [Lopressor] 50 mg PO BID 02/16/17 07/28/17 History Nitroglycerin Sl Tabs [Nitrostat] 0.4 mg SUBLINGUAL Q5M PRN #25 tab 02/18/17 Rx metFORMIN HCL [Glucophage] 1,000 mg PO BID #60 tab 02/18/17 07/28/17 Rx Glimepiride [Amaryl] 2 mg PO BID 07/28/17 07/28/17 History Lisinopril [Prinivil] 5 mg PO DAILY 07/28/17 07/28/17 History Ranitidine HCl 150 mg PO BID 07/28/17 07/28/17 History Allergies Allergy/AdvReac Type Severity Reaction Status Date / Time No Known Allergies Allergy Verified 07/28/17 21:28 Surgical - Exam Vital Signs Temp Pulse Resp BP Pulse Ox 97.8 F 90 19 213/99 96 07/28/17 21:02 07/28/17 21:02 07/28/17 21:02 07/28/17 21:02 07/28/17 21:02 - General well developed, obese - Eyes normal ocular movement, no icteric - ENT no hearing loss, no congestion - Neck no masses, trachea midline - Respiratory normal respiratory effort, clear to auscultation - Cardiovascular Rhythm: regular Abnormal Heart Sounds: no systolic murmur, no diastolic murmur, no rub, no S3 Gallop, no S4 Gallop, no click, no other - Abdomen Abdomen: distended - Genitourinary no normal penis with no external lesions, no testicles present, no testicles non -tender, no other - Rectum Deferred - Integumentary no rash, no growths, no abnormal pigmentation, other - Neurologic no disoriented, no combative - Musculoskeletal normal gait, normal posture, other - Psychiatric oriented to time, oriented to person, oriented to place, speech is normal, memory intact Results - Labs 07/29/17 05:17 07/29/17 05:17 Abnormal Lab Results - Last 24 Hours (Table) 07/28/17 07/28/17 07/28/17 Range/Units 21:05 21:05 21:05 RBC (4.30-5.90) m/uL Hct (39.0-53.0) % Plt Count 135 L (150-450) k/uL Sodium (137-145) mmol/L BUN (9-20) mg/dL Glucose 240 H (74-99) mg/dL POC Glucose (mg/dL) (75-99) mg/dL Magnesium 1.4 L (1.6-2.3) mg/dL AST 67 H (17-59) U/L ALT 202 H (21-72) U/L Alkaline Phosphatase 148 H (38-126) U/L Total Creatine Kinase (55-170) U/L Troponin I 0.044 H* (0.000-0.034) ng/mL Total Protein 6.2 L (6.3-8.2) g/dL Albumin (3.5-5.0) g/dL Triglycerides (<150) mg/dL Lipase (23-300) U/L 07/28/17 07/29/17 07/29/17 Range/Units 21:05 01:49 05:17 RBC 3.98 L (4.30-5.90) m/uL Hct 37.4 L (39.0-53.0) % Plt Count 124 L (150-450) k/uL Sodium (137-145) mmol/L BUN (9-20) mg/dL Glucose (74-99) mg/dL POC Glucose (mg/dL) (75-99) mg/dL Magnesium (1.6-2.3) mg/dL AST (17-59) U/L ALT (21-72) U/L Alkaline Phosphatase (38-126) U/L Total Creatine Kinase 46 L (55-170) U/L Troponin I 0.035 H* (0.000-0.034) ng/mL Total Protein (6.3-8.2) g/dL Albumin (3.5-5.0) g/dL Triglycerides (<150) mg/dL Lipase 303 H (23-300) U/L 07/29/17 07/29/17 07/29/17 Range/Units 05:17 05:38 11:07 RBC (4.30-5.90) m/uL Hct (39.0-53.0) % Plt Count (150-450) k/uL Sodium 136 L (137-145) mmol/L BUN 23 H (9-20) mg/dL Glucose 222 H (74-99) mg/dL POC Glucose (mg/dL) 236 H (75-99) mg/dL Magnesium (1.6-2.3) mg/dL AST (17-59) U/L ALT 147 H (21-72) U/L Alkaline Phosphatase 128 H (38-126) U/L Total Creatine Kinase 46 L (55-170) U/L Troponin I (0.000-0.034) ng/mL Total Protein 5.1 L (6.3-8.2) g/dL Albumin 2.9 L (3.5-5.0) g/dL Triglycerides 478 H (<150) mg/dL Lipase (23-300) U/L 07/29/17 Range/Units 11:12 RBC (4.30-5.90) m/uL Hct (39.0-53.0) % Plt Count (150-450) k/uL Sodium (137-145) mmol/L BUN (9-20) mg/dL Glucose (74-99) mg/dL POC Glucose (mg/dL) 142 H (75-99) mg/dL Magnesium (1.6-2.3) mg/dL AST (17-59) U/L ALT (21-72) U/L Alkaline Phosphatase (38-126) U/L Total Creatine Kinase (55-170) U/L Troponin I (0.000-0.034) ng/mL Total Protein (6.3-8.2) g/dL Albumin (3.5-5.0) g/dL Triglycerides (<150) mg/dL Lipase (23-300) U/L Diabetes panel 07/28/17 07/29/17 Range/Units 21:05 05:17 Sodium 138 136 L (137-145) mmol/L Potassium 4.6 4.4 (3.5-5.1) mmol/L Chloride 105 103 (98-107) mmol/L Carbon Dioxide 25 27 (22-30) mmol/L BUN 19 23 H (9-20) mg/dL Creatinine 0.75 0.71 (0.66-1.25) mg/dL Glucose 240 H 222 H (74-99) mg/dL Calcium 9.6 8.6 (8.4-10.2) mg/dL AST 67 H 36 (17-59) U/L ALT 202 H 147 H (21-72) U/L Alkaline Phosphatase 148 H 128 H (38-126) U/L Total Protein 6.2 L 5.1 L (6.3-8.2) g/dL Albumin 3.7 2.9 L (3.5-5.0) g/dL Triglycerides 478 H (<150) mg/dL HDL Cholesterol 48 (40-60) mg/dL Calcium panel 07/28/17 07/29/17 Range/Units 21:05 05:17 Calcium 9.6 8.6 (8.4-10.2) mg/dL Albumin 3.7 2.9 L (3.5-5.0) g/dL Pituitary panel 07/28/17 07/29/17 Range/Units 21:05 05:17 Sodium 138 136 L (137-145) mmol/L Potassium 4.6 4.4 (3.5-5.1) mmol/L Chloride 105 103 (98-107) mmol/L Carbon Dioxide 25 27 (22-30) mmol/L BUN 19 23 H (9-20) mg/dL Creatinine 0.75 0.71 (0.66-1.25) mg/dL Glucose 240 H 222 H (74-99) mg/dL Calcium 9.6 8.6 (8.4-10.2) mg/dL Adrenal panel 07/28/17 07/29/17 Range/Units 21:05 05:17 Sodium 138 136 L (137-145) mmol/L Potassium 4.6 4.4 (3.5-5.1) mmol/L Chloride 105 103 (98-107) mmol/L Carbon Dioxide 25 27 (22-30) mmol/L BUN 19 23 H (9-20) mg/dL Creatinine 0.75 0.71 (0.66-1.25) mg/dL Glucose 240 H 222 H (74-99) mg/dL Calcium 9.6 8.6 (8.4-10.2) mg/dL Total Bilirubin 0.6 0.4 (0.2-1.3) mg/dL AST 67 H 36 (17-59) U/L ALT 202 H 147 H (21-72) U/L Alkaline Phosphatase 148 H 128 H (38-126) U/L Total Protein 6.2 L 5.1 L (6.3-8.2) g/dL Albumin 3.7 2.9 L (3.5-5.0) g/dL - Imaging Chest x-ray: image reviewed EKG: report reviewed Additional studies: Cardiac catheterization shows progression of the proximal LAD disease which is at least moderate in nature at this point, moderate disease beyond the takeoff of the large diagonal artery, patent circumflex stent leading to a bifurcated second and third obtuse marginal arteries that are moderate in size and a smaller first obtuse marginal artery that has some mild to moderate disease proximally, severe proximal stenosis of the right coronary artery with smaller diseased posterior descending artery but a large posterolateral branch that has a stent in its proximal portion. Assessment and Plan Assessment: 4160s old gentleman, metabolic syndrome, EtOH abuse, current smoker, status post prior stenting to the RCA and circumflex artery, non-ST elevation myocardial infarction with evidence of progression of disease in his proximal right coronary artery and ostial left anterior descending artery. Patient currently on Plavix. Patient would benefit from coronary artery bypass grafting to his LAD, diagonal artery, posterolateral branch of the right coronary artery. His circumflex stent is patent and the first obtuse marginal artery which has moderate disease proximally seems to be small for bypass but would be evaluated intraoperatively. In view of patient body habitus, sternum might need to be plated. Tentatively scheduled for surgery on 08/02/2017, after 4 days of Plavix cessation. With complete preoperative workup in the interim. Patient will be started on thiamine and folic acid. His liver function tests are elevated and statin might need to be withheld. Patient would need to be anticoagulated with heparin in the interim. I had a lengthy discussion with him explaining that his prognosis is poor if he does not aggressively modify his risk factors. Surgery would be performed by my colleague Dr. Liriano as I am out of town next week. Discussed with Dr. Cortez. Thank you for the privilege of the consult.
[2017-07-29 13:24] LABS: Hemoglobin A1C 9.7 % (4.0-6.0)
[2017-07-29] MEDS: ACETAMINOPHEN TAB 325 MG TAB PO PRN ×2 (13:38→20:32)
[2017-07-29] MEDS ORDERED: HEPARIN SOD,PORK IN 0.45% NACL 25,000 UNIT in 0.45% NACL 1 500ML.BAG IV SCH (14:00)
--- NOTE | 2017-07-29 15:45 | US ---
EXAMINATION TYPE: US carotid duplex BILAT DATE OF EXAM: 07/29/2017 COMPARISON: NONE CLINICAL HISTORY: Pre-op CABG. EXAM MEASUREMENTS: RIGHT: Peak Systolic Velocity (PSV) cm/sec ----- Right CCA: 65.3 ----- Right ICA: 55.5 ----- Right ECA: 89.4 ICA/CCA ratio: 0.9 RIGHT: End Diastole cm/sec ----- Right CCA: 10.0 ----- Right ICA: 20.0 ----- Right ECA: 6.2 LEFT: Peak Systolic Velocity (PSV) cm/sec ----- Left CCA: 80.4 ----- Left ICA: 75.7 ----- Left ECA: 110.6 ICA/CCA ratio: 0.9 LEFT: End Diastole cm/sec ----- Left CCA: 18.7 ----- Left ICA: 29.4 ----- Left ECA: 10.1 VERTEBRALS (direction of flow): Right Vertebral: Antegrade Left Vertebral: Antegrade Rhythm: Normal Patient has large thick neck. IMPRESSION: Mild atherosclerotic changes, no significant velocity elevations. Criteria for Assigning % of Stenosis / Diameter reduction (Estimation based on the indirect measurements of the internal carotid artery velocities (ICA PSV). 1. Normal (no stenosis)=ICA PSV < 125 cm/s: ratio < 2.0: ICA EDV<40 cm/s. 2. Less than 50% stenosis=ICA PSV < 125 cm/s: ratio < 2.0: ICA EDV<40 cm/s. 3. 50 to 69% stenosis=ICA PSV of 125 to 230 cm/s: ration 2.0 ? 4.0: ICA EDV 40-100 cm/s. 4. Greater than 70% stenosis to near occlusion= ICA PSV > 230 cm/s: ratio > 4.0: ICA EDV > 100 cm/s. 5. Near occlusion= ICA PSV velocities may be low or undetectable: variable ratio and ICA EDV. 6. Total occlusion=unable to detect flow.
[2017-07-29] MEDS: THIAMINE 100 MG TAB PO SCH (16:13)
[2017-07-29] MEDS: FOLIC ACID 1 MG TAB PO SCH (16:13)
[2017-07-29 16:37] LABS: Glucose,Whole Blood 253 mg/dL (75-99)
[2017-07-29] MEDS ORDERED: IPRATROPIUM-ALBUTEROL 3 ML NEB INHALATION PRN (16:44)
--- NOTE | 2017-07-29 16:46 | P.CNPUL ---
History of Present Illness Consult date: 07/29/17 Requesting physician: Cortez Baron Reason for consult: dyspnea, chest pain, other Chief complaint: Left arm discomfort, shortness of breath History of present illness: Luis A is a 47-year-old white male patient who follows with Dr. Araujo, presented to the emergency department on 07/28/2017 at 2215 with complaints of a burning sensation in the left arm, chest discomfort, not feeling well, nausea , and shortness of breath. Patient denied any fever or chills. Denied any cough or congestion. Past medical history includes coronary artery disease, diabetes mellitus, GERD/reflux, hyperlipidemia, hypertension, previous myocardial infarction, osteoarthritis, pneumonia, colitis, nephrolithiasis. Patient is a current smoker, has smoked for close to 35 years. He has a daily alcohol intake. EKG completed in the emergency room showed normal sinus rhythm with T-wave inversion in lead III and aVF. Chest x-ray was negative for any acute cardiopulmonary process. Blood work showed a EDC of 6.7, hemoglobin of 15.1, d-dimer was negative at 0.50, electrolytes were within normal limits, renal profile was normal. First and second Troponins were elevated at 0.044, 0.035. Patient was noted to have mild elevation of his AST, ALT, and alkaline phosphatase, at 67, 202, and 148 respectively. Lipase was 303, serum alcohol was less than 10. Patient underwent cardiac catheterization which revealed disease in the LAD at 60-70% involving the ostial portion, circumflex coronary artery that was previously stented was patent. There was a 95% stenosis in the right coronary artery proximally. There was a 60% stenosis before the bifurcation into PDA and PLV, with a PDA being diffusely diseased. Cardiothoracic surgery was consulted for evaluation for coronary artery bypass grafting. We are consulted for preop CABG pulmonary evaluation and postop CABG pulmonary management. Review of Systems All systems: negative Constitutional: Denies chills, Denies fever Eyes: denies blurred vision, denies pain Ears, nose, mouth and throat: Denies headache, Denies sore throat Cardiovascular: Denies chest pain, Denies shortness of breath Respiratory: Denies cough Gastrointestinal: Denies abdominal pain, Denies diarrhea, Denies nausea, Denies vomiting Musculoskeletal: Denies myalgias Integumentary: Denies pruritus, Denies rash Neurological: Denies numbness, Denies weakness Psychiatric: Denies anxiety, Denies depression Endocrine: Denies fatigue, Denies weight change Past Medical History Past Medical History: Coronary Artery Disease (CAD), Diabetes Mellitus, GERD/ Reflux, Hyperlipidemia, Hypertension, Myocardial Infarction ([place]), Osteoarthritis ([place]), Pneumonia, Renal Disease Additional Past Medical History / Comment(s): NIDDM type II, chronic lumbar pain , colitis, athrtitis bilateral hands/wrists, nephrolithiasis. Last Myocardial Infarction Date:: 11/02/16 History of Any Multi-Drug Resistant Organisms: None Reported Past Surgical History: Heart Catheterization With Stent, Orthopedic Surgery Additional Past Surgical History / Comment(s): 11/02/16 PCI with stent to RCA, kidney stone basketing, failed L4-L5 fusions x 2, colonoscopy. Past Anesthesia/Blood Transfusion Reactions: No Reported Reaction Date of Last Stent Placement:: 11/02/16 Past Psychological History: No Psychological Hx Reported Additional Psychological History / Comment(s): Pt resides with his spouse. He is independent. He has a glucometer but no lancets or strips. Smoking Status: Former smoker Past Alcohol Use History: Daily Additional Past Alcohol Use History / Comment(s): Pt started smoking at the age of 17 yrs (1986) and depending on the day, he can smoke upwards to 1 PPD. He drinks alcohol daily-used to drink 1 pint a day of rum but states he has recently cut way back and some days doesn't drink at all. Past Drug Use History: None Reported - Past Family History Father Family Medical History: Congestive Heart Failure (CHF), Coronary Artery Disease (CAD), CVA/TIA, Myocardial Infarction ([place]) Additional Family Medical History / Comment(s): Father at the age of 63 yrs. Pt doesn't recall age of father's [place]. Mother Family Medical History: Cancer Additional Family Medical History / Comment(s): Mother had multiple cancers. She is living. Medications and Allergies Home Medications Medication Instructions Recorded Confirmed Type Atorvastatin [Lipitor] 80 mg PO HS #30 tab 11/08/16 07/28/17 Rx HYDROcodone/APAP 10-325MG [[place] 1 - 2 tab PO Q6H PRN 12/06/16 07/28/17 History 10-325] Multivitamins, Thera [Multivitamin 1 tab PO DAILY 12/06/16 07/28/17 History (formulary)] Clopidogrel [Plavix] 75 mg PO DAILY #30 tablet 12/07/16 07/28/17 Rx Aspirin EC [Ecotrin Low Dose] 81 mg PO DAILY 02/16/17 07/28/17 History Fish Oil/Dha/Epa [Fish Oil 1,200 1 cap PO DAILY 02/16/17 07/28/17 History mg Fish Oil] Metoprolol Tartrate [Lopressor] 50 mg PO BID 02/16/17 07/28/17 History Nitroglycerin Sl Tabs [Nitrostat] 0.4 mg SUBLINGUAL Q5M PRN #25 tab 02/18/17 Rx metFORMIN HCL [Glucophage] 1,000 mg PO BID #60 tab 02/18/17 07/28/17 Rx Glimepiride [Amaryl] 2 mg PO BID 07/28/17 07/28/17 History Lisinopril [Prinivil] 5 mg PO DAILY 07/28/17 07/28/17 History Ranitidine HCl 150 mg PO BID 07/28/17 07/28/17 History Allergies Allergy/AdvReac Type Severity Reaction Status Date / Time No Known Allergies Allergy Verified 07/28/17 21:28 Physical Exam Vitals: Vital Signs Temp Pulse Pulse Pulse Resp BP BP 07/29/17 14:51 75 16 131/60 07/29/17 13:51 90 16 151/69 07/29/17 12:51 84 16 122/57 07/29/17 12:21 90 16 151/69 07/29/17 11:51 96 16 137/69 07/29/17 11:36 86 16 142/80 07/29/17 11:18 80 16 137/79 07/29/17 11:10 16 07/29/17 11:06 78 16 141/85 07/29/17 08:00 96.8 F L 76 16 143/82 07/29/17 04:00 140/79 07/29/17 03:24 98.3 F 81 16 161/86 07/29/17 00:00 98.3 F 90 16 167/83 07/28/17 23:15 97.8 F 90 18 170/85 07/28/17 22:57 97.6 F 90 18 147/75 03/21/18 21:17 85 18 183/86 03/21/18 21:02 97.8 F 90 19 213/99 Pulse Ox 07/29/17 14:51 07/29/17 13:51 07/29/17 12:51 07/29/17 12:21 07/29/17 11:51 07/29/17 11:36 07/29/17 11:18 07/29/17 11:10 07/29/17 11:06 07/29/17 08:00 98 07/29/17 04:00 07/29/17 03:24 96 07/29/17 00:00 98 07/28/17 23:15 98 07/28/17 22:57 99 07/28/17 21:17 97 07/28/17 21:02 96 Intake and Output 07/29/17 07/29/17 07/29/17 06:59 14:59 22:59 Intake Total 387 Output Total 325 Balance 62 Intake: IV 150 Oral 237 Output: Urine 325 Other: # Voids 1 Weight 118.3 kg GENERAL EXAM: Alert, pleasant, 47-year-old obese white male laying flat on his back in bed post cardiac catheterization via right femoral approach, comfortable in no apparent distress. HEAD: Normocephalic/atraumatic. EYES: Normal reaction of pupils, equal size. Conjunctiva pink, sclera white. NOSE: Clear with pink turbinates. THROAT: No erythema or exudates. NECK: No masses, no JVD, no thyroid enlargement, no adenopathy. CHEST: No chest wall deformity. Symmetrical expansion. LUNGS: Equal air entry with no crackles, wheeze, rhonchi or dullness. CVS: Regular rate and rhythm, normal S1 and S2, no gallops, no murmurs, no rubs ABDOMEN: Soft, nontender. No hepatosplenomegaly, normal bowel sounds, no guarding or rigidity. EXTREMITIES: No clubbing, no edema, no cyanosis, 2+ pulses and upper and lower extremities. MUSCULOSKELETAL: Muscle strength and tone normal. SPINE: No scoliosis or deformity SKIN: No rashes CENTRAL NERVOUS SYSTEM: Alert and oriented -3. No focal deficits, tone is normal in all 4 extremities. PSYCHIATRIC: Alert and oriented -3. Appropriate affect. Intact judgment and insight. Results - Laboratory Findings CBC and BMP: 07/29/17 11:07 07/29/17 05:17 PT/INR, D-dimer PT 10.2 sec (9.0-12.0) 07/29/17 05:17 INR 1.0 (<1.2) 07/29/17 05:17 D-Dimer 0.50 mg/L FEU (<0.60) 07/28/17 21:05 Abnormal lab findings: Abnormal Labs 07/28/17 07/28/17 07/28/17 21:05 21:05 21:05 RBC Hct Plt Count 135 L Sodium BUN Glucose 240 H POC Glucose (mg/dL) Hemoglobin A1c Magnesium 1.4 L AST 67 H ALT 202 H Alkaline Phosphatase 148 H Total Creatine Kinase Troponin I 0.044 H* Total Protein 6.2 L Albumin Triglycerides Lipase 07/28/17 07/29/17 07/29/17 21:05 01:49 01:49 RBC Hct Plt Count Sodium BUN Glucose POC Glucose (mg/dL) Hemoglobin A1c 9.7 H Magnesium AST ALT Alkaline Phosphatase Total Creatine Kinase 46 L Troponin I 0.035 H* Total Protein Albumin Triglycerides Lipase 303 H 07/29/17 07/29/17 07/29/17 05:17 05:17 05:38 RBC 3.98 L Hct 37.4 L Plt Count 124 L Sodium 136 L BUN 23 H Glucose 222 H POC Glucose (mg/dL) 236 H Hemoglobin A1c Magnesium AST ALT 147 H Alkaline Phosphatase 128 H Total Creatine Kinase Troponin I Total Protein 5.1 L Albumin 2.9 L Triglycerides 478 H Lipase 07/29/17 07/29/17 07/29/17 11:07 11:07 11:12 RBC 4.07 L Hct 38.5 L Plt Count 126 L Sodium BUN Glucose POC Glucose (mg/dL) 142 H Hemoglobin A1c Magnesium AST ALT Alkaline Phosphatase Total Creatine Kinase 46 L Troponin I Total Protein Albumin Triglycerides Lipase - Diagnostic Findings Chest x-ray: report reviewed Additional studies: Twelve-lead EKG reviewed, carotid Doppler study reviewed Assessment and Plan Plan: Assessment: #1. Symptomatic coronary artery disease, cardiac catheterization performed today showed severe proximal stenosis of the RCA, progression of stenosis of the proximal LAD and patent circumflex stents. #2. History of coronary artery disease, with prior stenting of the circumflex artery and prior history of myocardial infarction #3. Diabetes mellitus type 2 #4. Nicotine dependence, ongoing #5. Daily alcohol intake, patient drinks around a pint of Rum a day #6. Hyperlipidemia, hypertension #7. GERD/reflux #8. Chronic lumbar pain #9. Osteoarthritis #10. History of nephrolithiasis Plan: Patient has been evaluated by cardiothoracic surgery and was recommended to have coronary artery bypass grafting on 08/02/2017. We'll complete pulmonary function testing once the patient is off bedrest. Smoking cessation was strongly recommended. Currently patient denies any acute dyspnea, his lung sounds are clear to auscultation. His chest x-ray has been reviewed and showed no acute cardiopulmonary process. We'll review the results of PFT, and will continue to follow the patient. We will add DuoNeb on a when necessary basis. I performed a history & physical examination of the patient and discussed their management with my nurse practitioner, Dot Fisher. I reviewed the nurse practitioner's note and agree with the documented findings and plan of care. Lung sounds are clear. The findings and the impression was discussed with the patient. I attest to the documentation by the nurse practitioner. Time with Patient: Greater than 30
[2017-07-29] MEDS: MUPIROCIN 2% OINT 22 GM TUBE NASAL SCH (20:32)
[2017-07-29] MEDS: MORPHINE SULFATE/PF 10MG/10ML VL IVP PRN (20:41)
[2017-07-29] MEDS: HEPARIN SOD,PORK IN 0.45% NACL 25,000 UNIT in 0.45% NACL 1 500ML.BAG IV SCH (21:12)
[2017-07-29 21:20] LABS: Glucose,Whole Blood 196 mg/dL (75-99)
[2017-07-29 21:41] LABS: Appearance,Urine Clear (Clear); Bilirubin,Urine Negative (Negative); Blood,Urine Small (Negative); Color,Urine Light Yellow; Glucose,Urine (UA) 4+ (Negative); Ketones,Urine Negative (Negative); Leukocyte Esterase,Urine Negative (Negative); Mucus,Urine Rare /hpf; Nitrite,Urine Negative (Negative); PH, Urine 5.5 (5.0-8.0); Protein,Urine 2+ (Negative); RBC,Urine 1 /hpf (0-5); Specific Gravity,Urine 1.016 (1.001-1.035); Urobilinogen,Urine <2.0 mg/dL (<2.0); WBC,Urine 1 /hpf (0-5)
[2017-07-29 21:49] LABS: Amphetamine Screen,Urine Not Detected (NotDetected); Barbiturate Screen,Urine Not Detected (NotDetected); Benzodiazepines Screen,Urine Not Detected (NotDetected); Cocaine Screen,Urine Not Detected (NotDetected); Methadone Screen, Urine Not Detected (NotDetected); Opiate Screen,Urine Detected (NotDetected); Oxycodone Screen, Urine Not Detected (NotDetected); Phencyclidine Screen,Urine Not Detected (NotDetected); Tricyclic Antidepressant,Urine Not Detected (NotDetected); Urn Cannabinoid Scrn Not Detected (NotDetected)
[2017-07-29] MEDS: ALPRAZolam 0.5 MG TAB PO PRN (23:08)
[2017-07-30] MEDS ORDERED: SODIUM CHLORIDE 0.9% 1,000 ML IV PRN (00:15)
[2017-07-30] MEDS: MORPHINE SULFATE/PF 10MG/10ML VL IVP PRN ×4 (00:32→23:35)
[2017-07-30 02:43] LABS: Basophils % (A) 0 %; Eosinophils # (A) 0.2 k/uL (0-0.7); Eosinophils % (A) 3 %; HCT 37.1 % (39.0-53.0); HGB 12.7 gm/dL (13.0-17.5); Lymphocytes # (A) 1.3 k/uL (1.0-4.8); Lymphocytes % (A) 19 %; MCH 32.1 pg (25.0-35.0); MCHC 34.2 g/dL (31.0-37.0); MCV 93.8 fL (80.0-100.0); Mean Platelet Volume 8.4; Monocytes # (A) 0.5 k/uL (0-1.0); Monocytes % (A) 8 %; Neutrophils # (A) 4.6 k/uL (1.3-7.7); Neutrophils % (A) 67 %; Platelet Count 121 k/uL (150-450); RBC 3.96 m/uL (4.30-5.90); RDW 13.7 % (11.5-15.5); WBC 6.9 k/uL (3.8-10.6)
[2017-07-30 02:49] LABS: ALT 112 U/L (21-72); AST 24 U/L (17-59); Albumin 3.1 g/dL (3.5-5.0); Alkaline Phosphatase 105 U/L (38-126); Anion Gap 9 mmol/L; Blood Urea Nitrogen 23 mg/dL (9-20); Calcium 8.8 mg/dL (8.4-10.2); Carbon Dioxide 23 mmol/L (22-30); Chloride 106 mmol/L (98-107); Glucose 204 mg/dL (74-99); Magnesium 1.6 mg/dL (1.6-2.3); Potassium 4.4 mmol/L (3.5-5.1); Sodium 138 mmol/L (137-145); Total Bilirubin 0.5 mg/dL (0.2-1.3); Total Protein 5.4 g/dL (6.3-8.2)
[2017-07-30] MEDS: ACETAMINOPHEN TAB 325 MG TAB PO PRN (05:25)
[2017-07-30] MEDS: HEPARIN SOD,PORK IN 0.45% NACL 25,000 UNIT in 0.45% NACL 1 500ML.BAG IV SCH (05:25)
[2017-07-30] MEDS: ALPRAZolam 0.5 MG TAB PO PRN ×3 (05:26→23:35)
[2017-07-30 06:18] LABS: Glucose,Whole Blood 182 mg/dL (75-99)
[2017-07-30] MEDS: INSULIN ASPART 100 UNIT/ML 1 ML 10 ML VIAL SQ SCH ×5 (06:24→21:01)
--- NOTE | 2017-07-30 08:44 | US ---
EXAMINATION TYPE: US lower ext pseudo artery RT DATE OF EXAM: 07/30/2017 COMPARISON: NONE CLINICAL HISTORY: post cath, bruit, r/o pseudoaneurysm. EXAM PERFORMED: Grayscale and color Doppler duplex imaging performed of the groin, post cardiac mickey ter to assess for pseudoaneurysm. SIDE PERFORMED: Right Color and Waveform Doppler performed to assess for the presence of pseudoaneurysm; Is there ultrasound evidence of a pseudoaneurysm: yes Is there evidence of AV shunting: no Positive for pseudoaneurysm measuring 3.8 x 2.0 x 3.6cm. There is a complex area inferior to psuedo measuring 3.4 x 1.0 x 3.8cm IMPRESSION: Findings compatible with pseudoaneurysm right groin. Adjacent hematoma.
[2017-07-30] MEDS: FAMOTIDINE 20 MG TAB PO SCH ×2 (09:48→20:54)
[2017-07-30] MEDS: ASPIRIN 325 MG TAB PO SCH (09:48)
[2017-07-30] MEDS: ATORVASTATIN 80 MG TAB PO SCH (09:48)
[2017-07-30] MEDS: GLIMEPIRIDE 2 MG TAB PO SCH ×2 (09:49→20:54)
[2017-07-30] MEDS: LISINOPRIL 5 MG TAB PO SCH (09:49)
[2017-07-30] MEDS: MULTIVITAMINS, THERA 1 EACH TAB PO SCH (09:50)
[2017-07-30] MEDS: METOPROLOL TARTRATE 25 MG TAB PO SCH ×2 (09:50→20:54)
[2017-07-30] MEDS: MUPIROCIN 2% OINT 22 GM TUBE NASAL SCH ×2 (09:51→20:54)
[2017-07-30] MEDS ORDERED: THROMBIN (BOVINE) 5,000 UNIT VIAL MISCELLANE ONE (10:30)
[2017-07-30] MEDS: NON-FORMULARY DRUG (Fish Oil/Dha/Epa [Fish Oil 1,200 Mg Fish Oil] 1 CAP) PO SCH (10:38)
--- NOTE | 2017-07-30 11:10 | ECHOF ---
Referral Reason:pre-op cabg, assess valves MEASUREMENTS -------- HEIGHT: 175.3 cm WEIGHT: 121.6 kg BP: 128/72 RVIDd: 3.4 cm (< 3.3) IVSd: 1.6 cm (0.6 - 1.1) LVIDd: 5.2 cm (3.9 - 5.3) LVPWd: 1.4 cm (0.6 - 1.1) IVSs: 2.0 cm LVIDs: 3.4 cm LVPWs: 1.9 cm LA Diam: 3.9 cm (2.7 - 3.8) LAESV Index (A-L): 25.47 ml/m Ao Diam: 3.5 cm (2.0 - 3.7) MV EXCURSION: 14.751 mm (> 18.000) MV EF SLOPE: 74 mm/s (70 - 150) EPSS: 0.3 cm MV E Flaco: 1.16 m/s MV DecT: 181 ms MV A Flaco: 0.96 m/s MV E/A Ratio: 1.21 AV maxP.23 mmHg AV meanP.48 mmHg FINDINGS -------- Sinus rhythm. This was a technically adequate study. The left ventricular size is normal. There is moderate concentric left ventricular hypertrophy. O verall left ventricular systolic function is mildly impaired with, an EF between 45 - 50 %. Basal i nferior LV wall motion is hypokinetic. Basal inferoseptal LV wall motion is hypokinetic. The right ventricle is normal in size. Normal LA size by volume 22+/-6 ml/m2. The right atrium is normal in size. The aortic valve is trileaflet and appears structurally normal. Mild mitral annular calcification present. There is trace to mild mitral regurgitation. Trace tricuspid regurgitation present. The aortic root size is normal. The inferior vena cava is dilated with no significant inspiratory collapse which is consistent estima yash right atrial pressure of >15 mmHg. There is no pericardial effusion. CONCLUSIONS -------- 1. Sinus rhythm. 2. This was a technically adequate study. 3. The left ventricular size is normal. 4. There is moderate concentric left ventricular hypertrophy. 5. Basal inferoseptal LV wall motion is hypokinetic. 6. The right ventricle is normal in size. 7. Normal LA size by volume 22+/-6 ml/m2. 8. The right atrium is normal in size. 9. The aortic valve is trileaflet and appears structurally normal. 10. Mild mitral annular calcification present. 11. There is trace to mild mitral regurgitation. 12. Trace tricuspid regurgitation present. 13. The aortic root size is normal. 14. The inferior vena cava is dilated with no significant inspiratory collapse which is consistent es timated right atrial pressure of >20 mmHg. 15. There is no pericardial effusion. PERFORMANCE ENGINEER: Paulina Barron RDCS
[2017-07-30 12:13] LABS: Glucose,Whole Blood 229 mg/dL (75-99)
[2017-07-30] MEDS: THIAMINE 100 MG TAB PO SCH (12:39)
[2017-07-30] MEDS: FOLIC ACID 1 MG TAB PO SCH (12:39)
--- NOTE | 2017-07-30 12:40 | US ---
EXAMINATION TYPE: US inj pseudoaneurysm ULTRASOUND GUIDED RIGHT GROIN PSEUDOANEURYSM THROMBIN INJECTION: CLINICAL HISTORY: Postcardiac catheter large pseudoaneurysm FINDINGS: The procedure was explained to the patient. The risks, complications, benefits and alternatives were discussed and any questions were answered. Informed consent was obtained. This included discussion of potential embolism to the lower extremity. Preprocedural pulses were obtained and monitored throughout the procedure. Patient was placed supine on the ultrasound table and prepped and draped in the usual sterile fashion. Utilizing a 25 gauge ne edle, an ultrasound guidance access into the posterior margin of the pseudoaneurysm sac away from the neck was obtained and there is instillation of 150 units with complete thrombosis of the pseudoaneur ysm. Patient was stable throughout the procedure. Postprocedural pulses were identical the preprocedu re pulses.. All elements of maximal barrier and sterile technique were utilized. IMPRESSION: 1. Successful ultrasound guided pseudoaneurysm injection with complete thrombosis.
--- NOTE | 2017-07-30 13:05 | P.PN ---
Subjective Progress Note Date: 07/30/17 Physical pleasant 47-year-old gentleman with history of CAD, status post multivessel angioplasty including RCA and circumflex presented to the hospital complaining of precordial chest pain. EKG showed his rhythm with evidence of prior inferior wall NC. Patient subsequently underwent cardiac catheterization which showed three-vessel coronary artery disease with a new focal 99% stenosis involving the proximal RCA is 60-70% ostial stenosis involving the LAD. Patient is being prepped for coronary artery bypass grafting surgery to be done next week. Last night, patient developed a large hematoma to his right groin which is reduced by nursing staff manually and had a FemoStop on for several hours. This morning patient continues to have a firm area near the puncture site with a positive bruit. Ultrasound showed a 3.8 x 2 x 3.6 cm pseudoaneurysm. Patient's physical he underwent successful ultrasound-guided pseudoaneurysm injection with complete thrombosis. Patient did have an echocardiogram done yesterday which showed an ejection fraction of 45-50% with basal inferior and basal inferioseptal hypokinesis. Objective - Vital Signs Vital signs: Vital Signs Temp 97.1 F L 07/30/17 12:15 Pulse 69 07/30/17 12:30 Resp 17 07/30/17 12:30 BP 144/94 07/30/17 12:30 Pulse Ox 97 07/30/17 12:30 Intake & Output 07/29/17 07/30/17 07/30/17 18:59 06:59 18:59 Intake Total 387 1730.333 Output Total 1325 275 950 Balance -938 1455.333 -950 Weight 122 kg Intake: IV 150 1160 0.9 1160 Intake, IV Titration 570.333 Amount Heparin Sod,Pork in 0.45% 132.333 NaCl 25,000 unit In 0.45 % NaCl 1 500ml.bag @ 8. 454 UNITS/KG/HR 20 mls/hr IV .Q24H ANDRE Rx#: [id number] Heparin Sod,Pork in 0.45% 438 NaCl 25,000 unit In 0.45 % NaCl 1 500ml.bag @ 8.6 UNITS/KG/HR 20.05 mls/hr IV .Q24H ANDRE Rx#: [id number] Oral 237 Output: Urine 1325 275 950 Other: Voiding Method Urinal Urinal # Voids 1 - Exam PHYSICAL EXAMINATION: HEENT: Head is atraumatic, normocephalic. Pupils equal, round. Neck is supple. There is no elevated jugular venous pressure. HEART EXAMINATION: Heart sounds regular, S1 and S2 normal. No murmur or gallop heard. CHEST EXAMINATION: Lungs are clear to auscultation and precussion. No chest wall tenderness is noted on palpation or with deep breathing. ABDOMEN: Soft, nontender. Bowel sounds are heard. No organomegaly noted. EXTREMITIES: 2+ peripheral pulses with no evidence of peripheral edema and no calf tenderness noted. Right groin puncture site with large area of ecchymosis with a moderate size hematoma, positive bruit, ultrasound positive for pseudoaneurysm. NEUROLOGIC patient is awake, alert and oriented x3. . - Labs CBC & Chem 7: 07/30/17 02:15 07/30/17 02:15 Labs: Abnormal Lab Results - Last 24 Hours (Table) 07/29/17 07/29/17 07/29/17 Range/Units 01:49 16:03 21:08 RBC (4.30-5.90) m/uL Hgb (13.0-17.5) gm/dL Hct (39.0-53.0) % Plt Count (150-450) k/uL BUN (9-20) mg/dL Glucose (74-99) mg/dL POC Glucose (mg/dL) 253 H 196 H (75-99) mg/dL Hemoglobin A1c 9.7 H (4.0-6.0) % ALT (21-72) U/L Total Protein (6.3-8.2) g/dL Albumin (3.5-5.0) g/dL Urine Protein (Negative) Urine Glucose (UA) (Negative) Urine Blood (Negative) Urine Mucus (None) /hpf Urine Opiates Screen (NotDetected) 07/29/17 07/30/17 07/30/17 Range/Units 21:15 02:15 02:15 RBC 3.96 L (4.30-5.90) m/uL Hgb 12.7 L (13.0-17.5) gm/dL Hct 37.1 L (39.0-53.0) % Plt Count 121 L (150-450) k/uL BUN 23 H (9-20) mg/dL Glucose 204 H (74-99) mg/dL POC Glucose (mg/dL) (75-99) mg/dL Hemoglobin A1c (4.0-6.0) % ALT 112 H (21-72) U/L Total Protein 5.4 L (6.3-8.2) g/dL Albumin 3.1 L (3.5-5.0) g/dL Urine Protein 2+ H (Negative) Urine Glucose (UA) 4+ H (Negative) Urine Blood Small H (Negative) Urine Mucus Rare H (None) /hpf Urine Opiates Screen Detected H (NotDetected) 07/30/17 07/30/17 Range/Units 06:07 11:37 RBC (4.30-5.90) m/uL Hgb (13.0-17.5) gm/dL Hct (39.0-53.0) % Plt Count (150-450) k/uL BUN (9-20) mg/dL Glucose (74-99) mg/dL POC Glucose (mg/dL) 182 H 229 H (75-99) mg/dL Hemoglobin A1c (4.0-6.0) % ALT (21-72) U/L Total Protein (6.3-8.2) g/dL Albumin (3.5-5.0) g/dL Urine Protein (Negative) Urine Glucose (UA) (Negative) Urine Blood (Negative) Urine Mucus (None) /hpf Urine Opiates Screen (NotDetected) Microbiology - Last 24 Hours (Table) 07/29/17 Unknown Urine Culture - Preliminary Urine,Voided Assessment and Plan Assessment: #1 triple vessel coronary artery disease, awaiting coronary artery bypass grafting surgery #2 pseudoaneurysm of the right femoral artery, status post ultrasound-guided injection with complete thrombosis #3 hypertension #4 diabetes #5 dyslipidemia Plan: From barrel roller operator 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 We will continue to follow the patient and monitor the right groin. Will provide further recommendations accordingly. The above dictated assessment and findings were discussed with signing physician. The impression and plan of care have been directed as dictated. Elizabeth Bateman, Nurse Practitioner, acting as scribe for signing physician.
[2017-07-30 13:39] LABS: Hepatitis A Antibody IgM Non-Reactive (Non-Reactive); Hepatitis B Core IgM Non-Reactive (Non-Reactive)
--- NOTE | 2017-07-30 14:16 | P.PN ---
Subjective Progress Note Date: 07/30/17 Principal diagnosis: Coronary artery diseaseAnel Gunn is a 47-year-old white male patient who follows with Dr. Araujo, presented to the emergency department on 07/28/2017 at 2215 with complaints of a burning sensation in the left arm, chest discomfort, not feeling well, nausea , and shortness of breath. Patient denied any fever or chills. Denied any cough or congestion. Past medical history includes coronary artery disease, diabetes mellitus, GERD/reflux, hyperlipidemia, hypertension, previous myocardial infarction, osteoarthritis, pneumonia, colitis, nephrolithiasis. Patient is a current smoker, has smoked for close to 35 years. He has a daily alcohol intake. EKG completed in the emergency room showed normal sinus rhythm with T-wave inversion in lead III and aVF. Chest x-ray was negative for any acute cardiopulmonary process. Blood work showed a EDC of 6.7, hemoglobin of 15.1, d-dimer was negative at 0.50, electrolytes were within normal limits, renal profile was normal. First and second Troponins were elevated at 0.044, 0.035. Patient was noted to have mild elevation of his AST, ALT, and alkaline phosphatase, at 67, 202, and 148 respectively. Lipase was 303, serum alcohol was less than 10. Patient underwent cardiac catheterization which revealed disease in the LAD at 60-70% involving the ostial portion, circumflex coronary artery that was previously stented was patent. There was a 95% stenosis in the right coronary artery proximally. There was a 60% stenosis before the bifurcation into PDA and PLV, with a PDA being diffusely diseased. Cardiothoracic surgery was consulted for evaluation for coronary artery bypass grafting. We are consulted for preop CABG pulmonary evaluation and postop CABG pulmonary management. The patient is seen again today 07/30/2017 in follow-up on the selective care unit. He is awake and alert in no acute distress. He is resting quite comfortably in bed. He denies any shortness of breath, cough or congestion. Maintaining good O2 saturations in the upper 90s on room air. He's been afebrile. Hemodynamically stable. No chest pain, palpitations lightheadedness or dizziness. Objective - Vital Signs Vital signs: Vital Signs Temp 97.1 F L 07/30/17 12:15 Pulse 69 07/30/17 12:30 Resp 17 07/30/17 12:30 BP 144/94 07/30/17 12:30 Pulse Ox 97 07/30/17 12:30 Intake & Output 07/29/17 07/30/17 07/30/17 18:59 06:59 18:59 Intake Total 387 1730.333 Output Total 1325 275 950 Balance -938 1455.333 -950 Weight 122 kg Intake: IV 150 1160 0.9 1160 Intake, IV Titration 570.333 Amount Heparin Sod,Pork in 0.45% 132.333 NaCl 25,000 unit In 0.45 % NaCl 1 500ml.bag @ 8. 454 UNITS/KG/HR 20 mls/hr IV .Q24H ANDRE Rx#: [id number] Heparin Sod,Pork in 0.45% 438 NaCl 25,000 unit In 0.45 % NaCl 1 500ml.bag @ 8.6 UNITS/KG/HR 20.05 mls/hr IV .Q24H ANDRE Rx#: [id number] Oral 237 Output: Urine 1325 275 950 Other: Voiding Method Urinal Urinal # Voids 1 - Exam GENERAL EXAM: Alert, active, comfortable in no apparent distress. HEAD: Normocephalic. EYES: Normal reaction of pupils, equal size. NOSE: Clear with pink turbinates. THROAT: No erythema or exudates. NECK: No masses, no JVD. CHEST: No chest wall deformity. LUNGS: Equal air entry with no crackles, wheeze, rhonchi or dullness. CVS: S1 and S2 normal with no audible murmur, regular rhythm. ABDOMEN: No hepatosplenomegaly, normal bowel sounds, no guarding or rigidity. SPINE: No scoliosis or deformity SKIN: No rashes CENTRAL NERVOUS SYSTEM: No focal deficits, tone is normal in all 4 extremities. EXTREMITIES: There is no peripheral edema. No clubbing, no cyanosis. Peripheral pulses are intact. - Labs CBC & Chem 7: 07/30/17 02:15 07/30/17 02:15 Labs: Abnormal Lab Results - Last 24 Hours (Table) 07/29/17 07/29/17 07/29/17 Range/Units 16:03 21:08 21:15 RBC (4.30-5.90) m/uL Hgb (13.0-17.5) gm/dL Hct (39.0-53.0) % Plt Count (150-450) k/uL BUN (9-20) mg/dL Glucose (74-99) mg/dL POC Glucose (mg/dL) 253 H 196 H (75-99) mg/dL ALT (21-72) U/L Total Protein (6.3-8.2) g/dL Albumin (3.5-5.0) g/dL Urine Protein 2+ H (Negative) Urine Glucose (UA) 4+ H (Negative) Urine Blood Small H (Negative) Urine Mucus Rare H (None) /hpf Urine Opiates Screen Detected H (NotDetected) 07/30/17 07/30/17 07/30/17 Range/Units 02:15 02:15 06:07 RBC 3.96 L (4.30-5.90) m/uL Hgb 12.7 L (13.0-17.5) gm/dL Hct 37.1 L (39.0-53.0) % Plt Count 121 L (150-450) k/uL BUN 23 H (9-20) mg/dL Glucose 204 H (74-99) mg/dL POC Glucose (mg/dL) 182 H (75-99) mg/dL ALT 112 H (21-72) U/L Total Protein 5.4 L (6.3-8.2) g/dL Albumin 3.1 L (3.5-5.0) g/dL Urine Protein (Negative) Urine Glucose (UA) (Negative) Urine Blood (Negative) Urine Mucus (None) /hpf Urine Opiates Screen (NotDetected) 07/30/17 Range/Units 11:37 RBC (4.30-5.90) m/uL Hgb (13.0-17.5) gm/dL Hct (39.0-53.0) % Plt Count (150-450) k/uL BUN (9-20) mg/dL Glucose (74-99) mg/dL POC Glucose (mg/dL) 229 H (75-99) mg/dL ALT (21-72) U/L Total Protein (6.3-8.2) g/dL Albumin (3.5-5.0) g/dL Urine Protein (Negative) Urine Glucose (UA) (Negative) Urine Blood (Negative) Urine Mucus (None) /hpf Urine Opiates Screen (NotDetected) Microbiology - Last 24 Hours (Table) 07/29/17 Unknown Urine Culture - Preliminary Urine,Voided Assessment and Plan Assessment: Assessment: #1. Symptomatic coronary artery disease, cardiac catheterization performed today showed severe proximal stenosis of the RCA, progression of stenosis of the proximal LAD and patent circumflex stents. #2. History of coronary artery disease, with prior stenting of the circumflex artery and prior history of myocardial infarction #3. Diabetes mellitus type 2 #4. Nicotine dependence, ongoing #5. Daily alcohol intake, patient drinks around a pint of Rum a day #6. Hyperlipidemia, hypertension #7. GERD/reflux #8. Chronic lumbar pain #9. Osteoarthritis #10. History of nephrolithiasis Plan: The patient was seen and evaluated by Dr. Marshall. He is stable from the pulmonary standpoint. He is again educated regarding the importance of complete smoking cessation. He is educated regarding the use of the incentive spirometer and cough and deep breathing exercises in the postoperative period. Continue to remain active until surgery next week. I, the cosigning physician, performed a history & physical examination of the patient. Lungs sounds are clear. Maintaining good O2 saturations in the 90s on room air. I discussed the assessment and plan of care with my nurse practitioner, Amanda Durand. I attest to the above note as dictated by her.
--- NOTE | 2017-07-30 15:48 | P.PN ---
Subjective Progress Note Date: 07/30/17 Principal diagnosis: Symptomatic multivessel coronary artery disease, history of known coronary artery disease with post prior stenting to his right coronary artery and circumflex coronary artery, obesity, diabetes mellitus type 2, hypertension, hyperlipidemia, history of myocardial infarction, osteoarthritis, history of pneumonia, and GERD. Patient is lying in bed with his head elevated. He is in no acute distress. He is complaining of some swelling to his right groin area. He does have a large hematoma with some ecchymosis to his right groin. A bedside ultrasound was completed to his right groin which demonstrated a 3.8 x 2 x 3.6 cm pseudoaneurysm. The patient underwent a successful ultrasound guided pseudoaneurysm injection with complete thrombosis performed by interventional radiology. Denies any complaints of pain or shortness of breath at this time. Objective - Vital Signs Vital signs: Vital Signs Temp 97.1 F L 07/30/17 12:15 Pulse 69 07/30/17 12:30 Resp 17 07/30/17 12:30 BP 144/94 07/30/17 12:30 Pulse Ox 97 07/30/17 12:30 Intake & Output 07/29/17 07/30/17 07/30/17 18:59 06:59 18:59 Intake Total 387 1730.333 Output Total 1325 275 950 Balance -938 1455.333 -950 Weight 122 kg 122 kg Intake: IV 150 1160 0.9 1160 Intake, IV Titration 570.333 Amount Heparin Sod,Pork in 0.45% 132.333 NaCl 25,000 unit In 0.45 % NaCl 1 500ml.bag @ 8. 454 UNITS/KG/HR 20 mls/hr IV .Q24H ANDRE Rx#: [id number] Heparin Sod,Pork in 0.45% 438 NaCl 25,000 unit In 0.45 % NaCl 1 500ml.bag @ 8.6 UNITS/KG/HR 20.05 mls/hr IV .Q24H ANDRE Rx#: [id number] Oral 237 Output: Urine 1325 275 950 Other: Voiding Method Urinal Urinal # Voids 1 - Constitutional General appearance: Present: cooperative, morbidly obese, no acute distress - EENT ENT: Present: hearing grossly normal - Neck Details: No JVD, no lymphadenopathy, neck is supple. - Respiratory Details: Lung sounds are essentially clear throughout. Respirations are symmetrical and nonlabored. Oxygen saturation are 97 percent on room air. - Cardiovascular Details: Regular rhythm and rate. S1 and S2 present, negative for S3, gallop or murmur. Remote telemetry showing normal sinus rhythm heart rate 77. No edema present. - Gastrointestinal Gastrointestinal Comment(s): Abdomen is soft, nontender and nondistended. Obese. Active bowel sounds to all 4 abdominal quadrants. No guarding or rigidity. - Genitourinary Genitourinary Comment(s): Urine output adequate. Voiding clear yellow urine. - Integumentary Integumentary Comment(s): Skin is warm and dry. No clubbing or cyanosis. Right groin puncture site with a large area of ecchymosis with hematoma. - Neurologic Neurologic: Present: CNII-XII intact - Musculoskeletal Musculoskeletal: Present: gait normal, strength equal bilaterally - Psychiatric Psychiatric: Present: A&O x's 3, appropriate affect, intact judgment & insight - Allied health notes Allied health notes reviewed: nursing - Labs CBC & Chem 7: 07/30/17 02:15 07/30/17 02:15 Labs: Abnormal Lab Results - Last 24 Hours (Table) 07/29/17 07/29/17 07/29/17 Range/Units 16:03 21:08 21:15 RBC (4.30-5.90) m/uL Hgb (13.0-17.5) gm/dL Hct (39.0-53.0) % Plt Count (150-450) k/uL BUN (9-20) mg/dL Glucose (74-99) mg/dL POC Glucose (mg/dL) 253 H 196 H (75-99) mg/dL ALT (21-72) U/L Total Protein (6.3-8.2) g/dL Albumin (3.5-5.0) g/dL Urine Protein 2+ H (Negative) Urine Glucose (UA) 4+ H (Negative) Urine Blood Small H (Negative) Urine Mucus Rare H (None) /hpf Urine Opiates Screen Detected H (NotDetected) 07/30/17 07/30/17 07/30/17 Range/Units 02:15 02:15 06:07 RBC 3.96 L (4.30-5.90) m/uL Hgb 12.7 L (13.0-17.5) gm/dL Hct 37.1 L (39.0-53.0) % Plt Count 121 L (150-450) k/uL BUN 23 H (9-20) mg/dL Glucose 204 H (74-99) mg/dL POC Glucose (mg/dL) 182 H (75-99) mg/dL ALT 112 H (21-72) U/L Total Protein 5.4 L (6.3-8.2) g/dL Albumin 3.1 L (3.5-5.0) g/dL Urine Protein (Negative) Urine Glucose (UA) (Negative) Urine Blood (Negative) Urine Mucus (None) /hpf Urine Opiates Screen (NotDetected) 07/30/17 Range/Units 11:37 RBC (4.30-5.90) m/uL Hgb (13.0-17.5) gm/dL Hct (39.0-53.0) % Plt Count (150-450) k/uL BUN (9-20) mg/dL Glucose (74-99) mg/dL POC Glucose (mg/dL) 229 H (75-99) mg/dL ALT (21-72) U/L Total Protein (6.3-8.2) g/dL Albumin (3.5-5.0) g/dL Urine Protein (Negative) Urine Glucose (UA) (Negative) Urine Blood (Negative) Urine Mucus (None) /hpf Urine Opiates Screen (NotDetected) Microbiology - Last 24 Hours (Table) 07/29/17 Unknown Urine Culture - Preliminary Urine,Voided - Imaging and Cardiology Chest x-ray: report reviewed, image reviewed 2-D echocardiogram results reviewed, shows overall left ventricular systolic function to be mildly impaired with an ejection fraction between 45 and 50%, trace to mild mitral valve regurgitation, and trace tricuspid regurgitation. Assessment and Plan (1) History of myocardial infarction Current Visit: Yes Status: Acute Code(s): I25.2 - OLD MYOCARDIAL INFARCTION SNOMED Code(s): 919700134 (2) Coronary artery disease Current Visit: Yes Status: Acute Code(s): I25.10 - ATHSCL HEART DISEASE OF [place] CORONARY ARTERY W/O ANG PCTRS SNOMED Code(s): 04744737 (3) Hypertension Current Visit: Yes Status: Acute Code(s): I10 - ESSENTIAL (PRIMARY) HYPERTENSION SNOMED Code(s): 94533407 (4) Diabetes mellitus type 2 in obese Current Visit: Yes Status: Acute Code(s): E11.69 - TYPE 2 DIABETES MELLITUS WITH OTHER SPECIFIED COMPLICATION; E66.9 - OBESITY, UNSPECIFIED SNOMED Code(s) : 13292489 (5) Obesity (BMI 30-39.9) Current Visit: Yes Status: Acute Code(s): E66.9 - OBESITY, UNSPECIFIED SNOMED Code(s): 280494813 (6) History of pneumonia Current Visit: Yes Status: Acute Code(s): Z87.01 - PERSONAL HISTORY OF PNEUMONIA (RECURRENT) SNOMED Code(s): 126961264 (7) GERD (gastroesophageal reflux disease) Current Visit: Yes Status: Acute Code(s): K21.9 - GASTRO-ESOPHAGEAL REFLUX DISEASE WITHOUT ESOPHAGITIS SNOMED Code(s): 473310897 (8) Hyperlipemia Current Visit: No Status: Acute Code(s): E78.5 - HYPERLIPIDEMIA, UNSPECIFIED SNOMED Code(s): 32764882 (9) Nicotine dependence Current Visit: No Status: Acute Code(s): F17.200 - NICOTINE DEPENDENCE, UNSPECIFIED, UNCOMPLICATED SNOMED Code(s): 43997421 Plan: 1. Continue to maximize preoperative medical management, continue aspirin, statin and beta kayla. 2. Preoperative testing initiated and in progress. 3. Preoperative teaching initiated and in progress. 4. The patient is scheduled for myocardial revascularization on Wednesday, 2017 to be performed by Dr. Liriano. 5. Medical management per primary care service. 6. More recommendations to follow as patient progresses in his care. Time with Patient: Greater than 30
[2017-07-30 17:00] LABS: Glucose,Whole Blood 200 mg/dL (75-99)
[2017-07-30] MEDS ORDERED: LORazepam 2 MG/ML INJ IV PRN ×3 (17:08)
[2017-07-30] MEDS ORDERED: THIAMINE 100 MG/ML 2 ML VIAL IM STA (17:08)
--- NOTE | 2017-07-30 17:08 | P.PN ---
Subjective Progress Note Date: 07/29/17 Progress NOTE l being dictated for Dr. Soriano. Interval history: This a 47-year-old gentleman admitted with chest pain, possible acute non-STEMI with known history of CAD, MN, and multiple other medical issues. Evaluated by cardiology. Underwent cardiac catheterization this morning, reporting triple vessel disease: 60-70% stenosis of LAD involving ostial portion, 95% in the proximal RCA, 60% stenosis just prior to bifurcation into the PDA and PLV. Cardiothoracic surgery and pulmonary consulted. Carotid Doppler reporting thick neck with no significant velocity elevations. LFTs improving. Denies chest pain, palpitations or increased shortness of breath. Objective - Vital Signs Vital signs: Vital Signs Temp 96.8 F L 07/29/17 08:00 Pulse 75 07/29/17 16:00 Resp 16 07/29/17 16:00 BP 131/60 07/29/17 14:51 Pulse Ox 98 07/29/17 08:00 Intake & Output 07/28/17 07/29/17 07/29/17 18:59 06:59 18:59 Intake Total 387 Output Total 925 Balance -538 Weight 118.3 kg Intake: IV 150 Oral 237 Output: Urine 925 Other: # Voids 1 - Exam PHYSICAL EXAM: VITAL SIGNS: As above GENERAL: Sitting up in bed, no acute distress HEENT: Conjunctivae normal. eyes normal. Oral mucosa moist NECK: No JVD. No thyroid enlargement. No LNs CARDIOVASCULAR: Regular S1, S2. No murmur RESPIRATION: Breath sounds diminished in the bases. no rhonchi, no crackles. No bronchial breathing. ABDOMEN: Soft, nontender . No guarding. no masses palpable. Bowel sounds heard. LEGS: No edema. no swelling PSYCHIATRY: Alert and oriented -3, mood and affect normal. NERVOUS SYSTEM: Cranial N 2-12 grossly normal. Moves all 4 limbs. Diffuse weakness No focal deficits. Skin: no ulcer no rash Joints: No active swelling. No inflammation. - Labs CBC & Chem 7: 07/30/17 02:15 07/30/17 02:15 Labs: Abnormal Lab Results - Last 24 Hours (Table) 07/28/17 07/28/17 07/28/17 Range/Units 21:05 21:05 21:05 RBC (4.30-5.90) m/uL Hct (39.0-53.0) % Plt Count 135 L (150-450) k/uL Sodium (137-145) mmol/L BUN (9-20) mg/dL Glucose 240 H (74-99) mg/dL POC Glucose (mg/dL) (75-99) mg/dL Hemoglobin A1c (4.0-6.0) % Magnesium 1.4 L (1.6-2.3) mg/dL AST 67 H (17-59) U/L ALT 202 H (21-72) U/L Alkaline Phosphatase 148 H (38-126) U/L Total Creatine Kinase (55-170) U/L Troponin I 0.044 H* (0.000-0.034) ng/mL Total Protein 6.2 L (6.3-8.2) g/dL Albumin (3.5-5.0) g/dL Triglycerides (<150) mg/dL Lipase (23-300) U/L 07/28/17 07/29/17 07/29/17 Range/Units 21:05 01:49 01:49 RBC (4.30-5.90) m/uL Hct (39.0-53.0) % Plt Count (150-450) k/uL Sodium (137-145) mmol/L BUN (9-20) mg/dL Glucose (74-99) mg/dL POC Glucose (mg/dL) (75-99) mg/dL Hemoglobin A1c 9.7 H (4.0-6.0) % Magnesium (1.6-2.3) mg/dL AST (17-59) U/L ALT (21-72) U/L Alkaline Phosphatase (38-126) U/L Total Creatine Kinase 46 L (55-170) U/L Troponin I 0.035 H* (0.000-0.034) ng/mL Total Protein (6.3-8.2) g/dL Albumin (3.5-5.0) g/dL Triglycerides (<150) mg/dL Lipase 303 H (23-300) U/L 07/29/17 07/29/17 07/29/17 Range/Units 05:17 05:17 05:38 RBC 3.98 L (4.30-5.90) m/uL Hct 37.4 L (39.0-53.0) % Plt Count 124 L (150-450) k/uL Sodium 136 L (137-145) mmol/L BUN 23 H (9-20) mg/dL Glucose 222 H (74-99) mg/dL POC Glucose (mg/dL) 236 H (75-99) mg/dL Hemoglobin A1c (4.0-6.0) % Magnesium (1.6-2.3) mg/dL AST (17-59) U/L ALT 147 H (21-72) U/L Alkaline Phosphatase 128 H (38-126) U/L Total Creatine Kinase (55-170) U/L Troponin I (0.000-0.034) ng/mL Total Protein 5.1 L (6.3-8.2) g/dL Albumin 2.9 L (3.5-5.0) g/dL Triglycerides 478 H (<150) mg/dL Lipase (23-300) U/L 07/29/17 07/29/17 07/29/17 Range/Units 11:07 11:07 11:12 RBC 4.07 L (4.30-5.90) m/uL Hct 38.5 L (39.0-53.0) % Plt Count 126 L (150-450) k/uL Sodium (137-145) mmol/L BUN (9-20) mg/dL Glucose (74-99) mg/dL POC Glucose (mg/dL) 142 H (75-99) mg/dL Hemoglobin A1c (4.0-6.0) % Magnesium (1.6-2.3) mg/dL AST (17-59) U/L ALT (21-72) U/L Alkaline Phosphatase (38-126) U/L Total Creatine Kinase 46 L (55-170) U/L Troponin I (0.000-0.034) ng/mL Total Protein (6.3-8.2) g/dL Albumin (3.5-5.0) g/dL Triglycerides (<150) mg/dL Lipase (23-300) U/L 07/29/17 Range/Units 16:03 RBC (4.30-5.90) m/uL Hct (39.0-53.0) % Plt Count (150-450) k/uL Sodium (137-145) mmol/L BUN (9-20) mg/dL Glucose (74-99) mg/dL POC Glucose (mg/dL) 253 H (75-99) mg/dL Hemoglobin A1c (4.0-6.0) % Magnesium (1.6-2.3) mg/dL AST (17-59) U/L ALT (21-72) U/L Alkaline Phosphatase (38-126) U/L Total Creatine Kinase (55-170) U/L Troponin I (0.000-0.034) ng/mL Total Protein (6.3-8.2) g/dL Albumin (3.5-5.0) g/dL Triglycerides (<150) mg/dL Lipase (23-300) U/L Assessment and Plan Assessment: 1. Chest pain, possible acute non-STEMI, status post cardiac catheterization with triple-vessel disease 2. Troponin 0.044 3. CAD with history of MN and stent 4. Diabetes mellitus type 2 5. Gastroesophageal reflux disease 6. Hyperlipidemia 7. Alcohol abuse 8. Ongoing nicotine abuse Plan: Continue on current medication regime ,monitoring and symptomatic treatment. Maintain on aspirin, beta kayla, EMILY inhibitor, nitroglycerin. Cardiothoracic surgery consulted for potential CABG. Smoking and alcohol cessation addressed. Pulmonary recommendations pending. Accu chek pending, with further orders to follow, pending results. Prognosis guarded given multiple complex medical issues. The impression and plan of care has been dictated as directed. : I performed a history and examination of this patient, discussed the same with the dictator. I agree with the dictator's note ,documented as a scribe. Any additional findings or plans will be noted.
[2017-07-30] MEDS: NICOTINE 21MG/24HR PATCH TRANSDERM SCH (17:21)
--- NOTE | 2017-07-30 17:24 | P.PN ---
Subjective Progress Note Date: 07/30/17 Progress NOTE l being dictated for Dr. Briones Interval history: This a 47-year-old gentleman admitted with chest pain, possible acute non-STEMI with known history of CAD, PA, and multiple other medical issues. Evaluated by cardiology. Underwent cardiac catheterization this morning, reporting triple vessel disease: 60-70% stenosis of LAD involving ostial portion, 95% in the proximal RCA, 60% stenosis just prior to bifurcation into the PDA and PLV. Cardiothoracic surgery and pulmonary consulted. Carotid Doppler reporting thick neck with no significant velocity elevations. LFTs improving. Denies chest pain, palpitations or increased shortness of breath. 07/30/2017 developed hematoma at right groin site of cardiac cath., during the night. Ultrasound reporting pseudoaneurysm, status post injection with complete thrombosis as per IR. Denies abdominal pain. Evaluated by cardiothoracic surgery, scheduled for CABG on Wednesday. Denies chest pain, palpitations or increasing shortness of breath. Blood sugars remain elevated in the 200s. Objective - Vital Signs Vital signs: Vital Signs Temp 98.2 F 07/30/17 15:37 Pulse 72 07/30/17 15:37 Resp 18 07/30/17 15:37 BP 128/84 07/30/17 15:37 Pulse Ox 97 07/30/17 15:37 Intake & Output 07/29/17 07/30/17 07/30/17 18:59 06:59 18:59 Intake Total 387 1730.333 230 Output Total 1325 275 950 Balance -938 1455.333 -720 Weight 122 kg 122 kg Intake: IV 150 1160 0.9 1160 Intake, IV Titration 570.333 Amount Heparin Sod,Pork in 0.45% 132.333 NaCl 25,000 unit In 0.45 % NaCl 1 500ml.bag @ 8. 454 UNITS/KG/HR 20 mls/hr IV .Q24H ANDRE Rx#: [id number] Heparin Sod,Pork in 0.45% 438 NaCl 25,000 unit In 0.45 % NaCl 1 500ml.bag @ 8.6 UNITS/KG/HR 20.05 mls/hr IV .Q24H ANDRE Rx#: [id number] Oral 237 230 Output: Urine 1325 275 950 Other: Voiding Method Urinal Urinal # Voids 1 - Exam PHYSICAL EXAM: VITAL SIGNS: As above GENERAL: Sitting up in bed, no acute distress HEENT: Conjunctivae normal. eyes normal. Oral mucosa moist NECK: No JVD. No thyroid enlargement. No LNs CARDIOVASCULAR: Regular S1, S2. No murmur RESPIRATION: Breath sounds diminished in the bases. no rhonchi, no crackles. No wheezing ABDOMEN: Soft, nontender . No guarding. no masses palpable. Bowel sounds heard. LEGS: No edema. no swelling PSYCHIATRY: Alert and oriented -3, mood and affect normal. NERVOUS SYSTEM: Cranial N 2-12 grossly normal. Moves all 4 limbs. Diffuse weakness No focal deficits. Skin: Right groin puncture site hematoma, large ecchymosis - Labs CBC & Chem 7: 07/30/17 02:15 07/30/17 02:15 Labs: Abnormal Lab Results - Last 24 Hours (Table) 07/29/17 07/29/17 07/30/17 Range/Units 21:08 21:15 02:15 RBC 3.96 L (4.30-5.90) m/uL Hgb 12.7 L (13.0-17.5) gm/dL Hct 37.1 L (39.0-53.0) % Plt Count 121 L (150-450) k/uL BUN (9-20) mg/dL Glucose (74-99) mg/dL POC Glucose (mg/dL) 196 H (75-99) mg/dL ALT (21-72) U/L Total Protein (6.3-8.2) g/dL Albumin (3.5-5.0) g/dL Urine Protein 2+ H (Negative) Urine Glucose (UA) 4+ H (Negative) Urine Blood Small H (Negative) Urine Mucus Rare H (None) /hpf Urine Opiates Screen Detected H (NotDetected) 07/30/17 07/30/17 07/30/17 Range/Units 02:15 06:07 11:37 RBC (4.30-5.90) m/uL Hgb (13.0-17.5) gm/dL Hct (39.0-53.0) % Plt Count (150-450) k/uL BUN 23 H (9-20) mg/dL Glucose 204 H (74-99) mg/dL POC Glucose (mg/dL) 182 H 229 H (75-99) mg/dL ALT 112 H (21-72) U/L Total Protein 5.4 L (6.3-8.2) g/dL Albumin 3.1 L (3.5-5.0) g/dL Urine Protein (Negative) Urine Glucose (UA) (Negative) Urine Blood (Negative) Urine Mucus (None) /hpf Urine Opiates Screen (NotDetected) 07/30/17 Range/Units 16:58 RBC (4.30-5.90) m/uL Hgb (13.0-17.5) gm/dL Hct (39.0-53.0) % Plt Count (150-450) k/uL BUN (9-20) mg/dL Glucose (74-99) mg/dL POC Glucose (mg/dL) 200 H (75-99) mg/dL ALT (21-72) U/L Total Protein (6.3-8.2) g/dL Albumin (3.5-5.0) g/dL Urine Protein (Negative) Urine Glucose (UA) (Negative) Urine Blood (Negative) Urine Mucus (None) /hpf Urine Opiates Screen (NotDetected) Microbiology - Last 24 Hours (Table) 07/29/17 Unknown Urine Culture - Preliminary Urine,Voided Assessment and Plan Assessment: 1. Chest pain, possible acute non-STEMI, status post cardiac catheterization with triple-vessel disease, CABG pending 2. Troponin 0.044 3. CAD with history of PA and stent 4. Diabetes mellitus type 2, hemoglobin A1c 9.6 5. Gastroesophageal reflux disease 6. Hyperlipidemia 7. Alcohol abuse 8. Ongoing nicotine abuse 9. Pseudoaneurysm Plan: Continue on current medication regime ,monitoring and symptomatic treatment. Levemir and pre-meal insulin added to med regime with close monitoring of Accu-Cheks. CABG scheduled for Wednesday. Aggressive pulmonary toileting, incentive spirometer reinforced. Smoking and alcohol cessation addressed. The impression and plan of care has been dictated as directed. : I performed a history and examination of this patient, discussed the same with the dictator. I agree with the dictator's note ,documented as a scribe. Any additional findings or plans will be noted.
[2017-07-30 21:00] LABS: Glucose,Whole Blood 264 mg/dL (75-99)
[2017-07-30] MEDS: INSULIN DETEMIR 100 UNIT/ML 10 ML VIAL SQ SCH (21:01)
[2017-07-31 06:29] LABS: Glucose,Whole Blood 180 mg/dL (75-99)
[2017-07-31] MEDS: INSULIN ASPART 100 UNIT/ML 1 ML 10 ML VIAL SQ SCH ×7 (06:49→21:22)
[2017-07-31 06:56] LABS: Basophils % (A) 0 %; Eosinophils # (A) 0.2 k/uL (0-0.7); Eosinophils % (A) 3 %; HCT 36.1 % (39.0-53.0); HGB 12.4 gm/dL (13.0-17.5); Lymphocytes # (A) 1.2 k/uL (1.0-4.8); Lymphocytes % (A) 19 %; MCH 32.5 pg (25.0-35.0); MCHC 34.4 g/dL (31.0-37.0); MCV 94.5 fL (80.0-100.0); Mean Platelet Volume 8.4; Monocytes # (A) 0.6 k/uL (0-1.0); Monocytes % (A) 9 %; Neutrophils % (A) 65 %; Platelet Count 112 k/uL (150-450); RBC 3.82 m/uL (4.30-5.90); RDW 13.6 % (11.5-15.5); WBC 6.1 k/uL (3.8-10.6)
[2017-07-31 07:20] LABS: ALT 84 U/L (21-72); AST 21 U/L (17-59); Alkaline Phosphatase 87 U/L (38-126); Anion Gap 7 mmol/L; Blood Urea Nitrogen 19 mg/dL (9-20); Calcium 8.9 mg/dL (8.4-10.2); Carbon Dioxide 28 mmol/L (22-30); Chloride 106 mmol/L (98-107); Glucose 179 mg/dL (74-99); Potassium 4.5 mmol/L (3.5-5.1); Sodium 141 mmol/L (137-145); Total Bilirubin 0.4 mg/dL (0.2-1.3); Total Protein 5.3 g/dL (6.3-8.2)
[2017-07-31] MEDS: ATORVASTATIN 80 MG TAB PO SCH (08:07)
[2017-07-31] MEDS: FAMOTIDINE 20 MG TAB PO SCH ×2 (08:07→20:37)
[2017-07-31] MEDS: ASPIRIN 325 MG TAB PO SCH (08:07)
[2017-07-31] MEDS: GLIMEPIRIDE 2 MG TAB PO SCH ×2 (08:07→21:21)
[2017-07-31] MEDS: MULTIVITAMINS, THERA 1 EACH TAB PO SCH (08:08)
[2017-07-31] MEDS: METOPROLOL TARTRATE 25 MG TAB PO SCH ×2 (08:08→20:37)
[2017-07-31] MEDS: MUPIROCIN 2% OINT 22 GM TUBE NASAL SCH ×2 (08:08→21:32)
[2017-07-31] MEDS: NICOTINE 21MG/24HR PATCH TRANSDERM SCH ×2 (08:09→08:20)
[2017-07-31] MEDS: MORPHINE SULFATE/PF 10MG/10ML VL IVP PRN ×3 (08:10→21:22)
[2017-07-31] MEDS: ALPRAZolam 0.5 MG TAB PO PRN ×3 (08:12→21:22)
[2017-07-31] MEDS: NON-FORMULARY DRUG (Fish Oil/Dha/Epa [Fish Oil 1,200 Mg Fish Oil] 1 CAP) PO SCH (08:21)
[2017-07-31] MEDS ORDERED: NICOTINE 21MG/24HR PATCH TRANSDERM SCH (08:30)
--- NOTE | 2017-07-31 12:22 | P.PN ---
Subjective Progress Note Date: 07/31/17 Principal diagnosis: Symptomatic multivessel coronary artery disease, history of known coronary artery disease with post prior stenting to his right coronary artery and circumflex coronary artery, obesity, diabetes mellitus type 2, hypertension, hyperlipidemia, myocardial infarction this admission troponins as high as 0.044 , osteoarthritis, history of pneumonia, and GERD. The patient is sitting up to his bedside edge. He is in no acute distress. He denies any complaints of pain or shortness of breath. He remains to have some ecchymosis to his right groin, soft touch. Preoperative FEV1 completed which shows a FEV1 predicted value of 65%. 5 meter walk test completed time 1:6.81 seconds, time 2: 5.90 seconds, time 3: 6.50 seconds. Objective - Vital Signs Vital signs: Vital Signs Temp 97.2 F L 07/31/17 11:11 Pulse 66 07/31/17 11:11 Resp 18 07/31/17 11:11 BP 110/61 07/31/17 11:11 Pulse Ox 98 07/31/17 11:11 Intake & Output 07/30/17 07/31/17 07/31/17 18:59 06:59 18:59 Intake Total 230 400 Output Total 1750 400 Balance -1520 -400 400 Weight 122 kg 121.7 kg Intake: Oral 230 400 Output: Urine 1750 400 Other: Voiding Method Urinal Urinal # Voids 1 1 - Constitutional General appearance: Present: cooperative, no acute distress, obese - EENT Eyes: Present: PERRLA ENT: Present: hearing grossly normal - Neck Details: Neck is supple, no JVD or lymphadenopathy. - Respiratory Details: Lung sounds are essentially clear throughout, few scattered crackles to his bilateral bases. Respirations are symmetrical and nonlabored. Oxygen saturations are 98% on room air. - Cardiovascular Details: Regular rhythm and rate. S1 and S2 present, negative for S3, gallop or murmur. Remote telemetry showing normal sinus rhythm heart rate 62. - Gastrointestinal Gastrointestinal Comment(s): Abdomen is soft, nontender nondistended. Obese. No guarding or rigidity. Active bowel sounds all 4 abdominal quadrants. No organomegaly. - Genitourinary Genitourinary Comment(s): Adequate urine output. Patient related to the bathroom. 400 mL of clear yellow urine output in the last 8 hours. - Integumentary Integumentary Comment(s): Skin is warm and dry. No clubbing or cyanosis. Right groin ecchymosis. Right groin soft palpate. Multiple tattoos. - Neurologic Neurologic: Present: CNII-XII intact - Musculoskeletal Musculoskeletal: Present: gait normal, strength equal bilaterally - Psychiatric Psychiatric: Present: A&O x's 3, appropriate affect, intact judgment & insight - Allied health notes Allied health notes reviewed: nursing - Labs CBC & Chem 7: 07/31/17 06:00 07/31/17 06:00 Labs: Abnormal Lab Results - Last 24 Hours (Table) 07/30/17 07/30/17 07/30/17 Range/Units 11:37 16:58 20:57 RBC (4.30-5.90) m/uL Hgb (13.0-17.5) gm/dL Hct (39.0-53.0) % Plt Count (150-450) k/uL Glucose (74-99) mg/dL POC Glucose (mg/dL) 229 H 200 H 264 H (75-99) mg/dL ALT (21-72) U/L Total Protein (6.3-8.2) g/dL Albumin (3.5-5.0) g/dL 07/31/17 07/31/17 07/31/17 Range/Units 06:00 06:00 06:02 RBC 3.82 L (4.30-5.90) m/uL Hgb 12.4 L (13.0-17.5) gm/dL Hct 36.1 L (39.0-53.0) % Plt Count 112 L (150-450) k/uL Glucose 179 H (74-99) mg/dL POC Glucose (mg/dL) 180 H (75-99) mg/dL ALT 84 H (21-72) U/L Total Protein 5.3 L (6.3-8.2) g/dL Albumin 3.0 L (3.5-5.0) g/dL Microbiology - Last 24 Hours (Table) 07/29/17 Unknown Urine Culture - Preliminary Urine,Voided - Imaging and Cardiology Chest x-ray: report reviewed, image reviewed Venous US: report reviewed, image reviewed Carotid duplex study results reviewed. Assessment and Plan (1) History of myocardial infarction Current Visit: Yes Status: Acute Code(s): I25.2 - OLD MYOCARDIAL INFARCTION SNOMED Code(s): 469354847 (2) Coronary artery disease Current Visit: Yes Status: Acute Code(s): I25.10 - ATHSCL HEART DISEASE OF [place] CORONARY ARTERY W/O ANG PCTRS SNOMED Code(s): 75432340 (3) Hypertension Current Visit: Yes Status: Acute Code(s): I10 - ESSENTIAL (PRIMARY) HYPERTENSION SNOMED Code(s): 58131614 (4) Diabetes mellitus type 2 in obese Current Visit: Yes Status: Acute Code(s): E11.69 - TYPE 2 DIABETES MELLITUS WITH OTHER SPECIFIED COMPLICATION; E66.9 - OBESITY, UNSPECIFIED SNOMED Code(s) : 11032338 (5) Obesity (BMI 30-39.9) Current Visit: Yes Status: Acute Code(s): E66.9 - OBESITY, UNSPECIFIED SNOMED Code(s): 232897926 (6) History of pneumonia Current Visit: Yes Status: Acute Code(s): Z87.01 - PERSONAL HISTORY OF PNEUMONIA (RECURRENT) SNOMED Code(s): 554685795 (7) GERD (gastroesophageal reflux disease) Current Visit: Yes Status: Acute Code(s): K21.9 - GASTRO-ESOPHAGEAL REFLUX DISEASE WITHOUT ESOPHAGITIS SNOMED Code(s): 927034482 (8) Hyperlipemia Current Visit: No Status: Acute Code(s): E78.5 - HYPERLIPIDEMIA, UNSPECIFIED SNOMED Code(s): 29413794 (9) Nicotine dependence Current Visit: No Status: Acute Code(s): F17.200 - NICOTINE DEPENDENCE, UNSPECIFIED, UNCOMPLICATED SNOMED Code(s): 35947918 Plan: 1. Continue to maximize preoperative medical management, continue aspirin, statin and beta kayla. 2. Preoperative testing initiated and in progress. 3. Preoperative teaching initiated and in progress. 4. The patient is scheduled for myocardial revascularization on Wednesday, 2017 to be performed by Dr. Liriano. 5. Medical management per primary care service. 6. STS risk score was calculated and was discussed with the patient by Dr. Liriano. 7. 5 meter walk test completed time 1:6.81 seconds, time 2: 5.90 seconds, time 3: 6.50 seconds. 8. More recommendations to follow as patient progresses in his care. Time with Patient: Greater than 30
[2017-07-31 12:27] LABS: Glucose,Whole Blood 182 mg/dL (75-99)
[2017-07-31] MEDS: FOLIC ACID 1 MG TAB PO SCH (12:38)
[2017-07-31] MEDS: THIAMINE 100 MG TAB PO SCH ×2 (12:38→17:13)
--- NOTE | 2017-07-31 13:27 | P.PN ---
Subjective Progress Note Date: 07/31/17 This is a pleasant 47-year-old gentleman with history of CAD, status post multivessel angioplasty including RCA and circumflex presented to the hospital complaining of precordial chest pain. EKG showed his rhythm with evidence of prior inferior wall KS. Patient subsequently underwent cardiac catheterization which showed three-vessel coronary artery disease with a new focal 99% stenosis involving the proximal RCA is 60-70% ostial stenosis involving the LAD. Patient is being prepped for coronary artery bypass grafting surgery to be done next week. Last night, patient developed a large hematoma to his right groin which is reduced by nursing staff manually and had a FemoStop on for several hours. This morning patient continues to have a firm area near the puncture site with a positive bruit. Ultrasound showed a 3.8 x 2 x 3.6 cm pseudoaneurysm. Patient's physical he underwent successful ultrasound-guided pseudoaneurysm injection with complete thrombosis. Patient did have an echocardiogram done yesterday which showed an ejection fraction of 45-50% with basal inferior and basal inferioseptal hypokinesis. Upon examination today, the patient is resting comfortably in bed. He denies complaints of chest discomfort. He continues to have some tenderness at the right groin puncture site over the site is soft. He has palpable and equal bilaterally peripheral pulses. Objective - Vital Signs Vital signs: Vital Signs Temp 97.2 F L 07/31/17 11:11 Pulse 66 07/31/17 11:11 Resp 18 07/31/17 11:11 BP 110/61 07/31/17 11:11 Pulse Ox 98 07/31/17 11:11 Intake & Output 07/30/17 07/31/17 07/31/17 18:59 06:59 18:59 Intake Total 230 400 Output Total 1750 400 Balance -1520 -400 400 Weight 122 kg 121.7 kg Intake: Oral 230 400 Output: Urine 1750 400 Other: Voiding Method Urinal Urinal # Voids 1 1 - Exam PHYSICAL EXAMINATION: HEENT: Head is atraumatic, normocephalic. Pupils equal, round. Neck is supple. There is no elevated jugular venous pressure. HEART EXAMINATION: Heart sounds regular, S1 and S2 normal. No murmur or gallop heard. CHEST EXAMINATION: Lungs are clear to auscultation and precussion. No chest wall tenderness is noted on palpation or with deep breathing. ABDOMEN: Soft, nontender. Bowel sounds are heard. No organomegaly noted. EXTREMITIES: 2+ peripheral pulses with no evidence of peripheral edema and no calf tenderness noted. Right groin puncture site with large area of ecchymosis , site is soft with no bruit. NEUROLOGIC patient is awake, alert and oriented x3. . - Labs CBC & Chem 7: 07/31/17 06:00 07/31/17 06:00 Labs: Abnormal Lab Results - Last 24 Hours (Table) 07/30/17 07/30/17 07/31/17 Range/Units 16:58 20:57 06:00 RBC 3.82 L (4.30-5.90) m/uL Hgb 12.4 L (13.0-17.5) gm/dL Hct 36.1 L (39.0-53.0) % Plt Count 112 L (150-450) k/uL Glucose (74-99) mg/dL POC Glucose (mg/dL) 200 H 264 H (75-99) mg/dL ALT (21-72) U/L Total Protein (6.3-8.2) g/dL Albumin (3.5-5.0) g/dL 07/31/17 07/31/17 07/31/17 Range/Units 06:00 06:02 12:24 RBC (4.30-5.90) m/uL Hgb (13.0-17.5) gm/dL Hct (39.0-53.0) % Plt Count (150-450) k/uL Glucose 179 H (74-99) mg/dL POC Glucose (mg/dL) 180 H 182 H (75-99) mg/dL ALT 84 H (21-72) U/L Total Protein 5.3 L (6.3-8.2) g/dL Albumin 3.0 L (3.5-5.0) g/dL Microbiology - Last 24 Hours (Table) 07/29/17 Unknown Urine Culture - Preliminary Urine,Voided Assessment and Plan Assessment: #1 triple vessel coronary artery disease, awaiting coronary artery bypass grafting surgery #2 pseudoaneurysm of the right femoral artery, status post ultrasound-guided injection with complete thrombosis #3 hypertension #4 diabetes #5 dyslipidemia Plan: 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 We will continue to follow the patient and monitor the right groin. Will provide further recommendations accordingly. The above dictated assessment and findings were discussed with signing physician. The impression and plan of care have been directed as dictated. Elizabeth Bateman, Nurse Practitioner, acting as scribe for signing physician.
--- NOTE | 2017-07-31 13:33 | P.PN ---
Subjective Progress Note Date: 07/31/17 Principal diagnosis: Coronary artery diseaseAnel Gunn is a 47-year-old white male patient who follows with Dr. Araujo, presented to the emergency department on 07/28/2017 at 2215 with complaints of a burning sensation in the left arm, chest discomfort, not feeling well, nausea , and shortness of breath. Patient denied any fever or chills. Denied any cough or congestion. Past medical history includes coronary artery disease, diabetes mellitus, GERD/reflux, hyperlipidemia, hypertension, previous myocardial infarction, osteoarthritis, pneumonia, colitis, nephrolithiasis. Patient is a current smoker, has smoked for close to 35 years. He has a daily alcohol intake. EKG completed in the emergency room showed normal sinus rhythm with T-wave inversion in lead III and aVF. Chest x-ray was negative for any acute cardiopulmonary process. Blood work showed a EDC of 6.7, hemoglobin of 15.1, d-dimer was negative at 0.50, electrolytes were within normal limits, renal profile was normal. First and second Troponins were elevated at 0.044, 0.035. Patient was noted to have mild elevation of his AST, ALT, and alkaline phosphatase, at 67, 202, and 148 respectively. Lipase was 303, serum alcohol was less than 10. Patient underwent cardiac catheterization which revealed disease in the LAD at 60-70% involving the ostial portion, circumflex coronary artery that was previously stented was patent. There was a 95% stenosis in the right coronary artery proximally. There was a 60% stenosis before the bifurcation into PDA and PLV, with a PDA being diffusely diseased. Cardiothoracic surgery was consulted for evaluation for coronary artery bypass grafting. We are consulted for preop CABG pulmonary evaluation and postop CABG pulmonary management. The patient is seen again today 07/30/2017 in follow-up on the selective care unit. He is awake and alert in no acute distress. He is resting quite comfortably in bed. He denies any shortness of breath, cough or congestion. Maintaining good O2 saturations in the upper 90s on room air. He's been afebrile. Hemodynamically stable. No chest pain, palpitations lightheadedness or dizziness. The patient is seen again today 07/31/2017 in follow-up on the selective care unit. He is awake and alert in no acute distress. He denies any shortness of breath, cough or congestion. No chest pain, palpitations lightheadedness or dizziness. He continues to maintain good O2 saturations in the 90s on room air. His PFT was reviewed FEV1 value 65% of predicted and his lung function is more than adequate to support general anesthesia. He remains afebrile. Hemodynamically stable. White count 6.1. Hemoglobin 12.4. Creatinine 0.72. Objective - Vital Signs Vital signs: Vital Signs Temp 97.2 F L 07/31/17 11:11 Pulse 66 07/31/17 11:11 Resp 18 07/31/17 11:11 BP 110/61 07/31/17 11:11 Pulse Ox 98 07/31/17 11:11 Intake & Output 07/30/17 07/31/17 07/31/17 18:59 06:59 18:59 Intake Total 230 400 Output Total 1750 400 Balance -1520 -400 400 Weight 122 kg 121.7 kg Intake: Oral 230 400 Output: Urine 1750 400 Other: Voiding Method Urinal Urinal # Voids 1 1 - Exam GENERAL EXAM: Alert, active, comfortable in no apparent distress. HEAD: Normocephalic. EYES: Normal reaction of pupils, equal size. NOSE: Clear with pink turbinates. THROAT: No erythema or exudates. NECK: No masses, no JVD. CHEST: No chest wall deformity. LUNGS: Equal air entry with no crackles, wheeze, rhonchi or dullness. CVS: S1 and S2 normal with no audible murmur, regular rhythm. ABDOMEN: No hepatosplenomegaly, normal bowel sounds, no guarding or rigidity. SPINE: No scoliosis or deformity SKIN: No rashes CENTRAL NERVOUS SYSTEM: No focal deficits, tone is normal in all 4 extremities. EXTREMITIES: There is no peripheral edema. No clubbing, no cyanosis. Peripheral pulses are intact. - Labs CBC & Chem 7: 07/31/17 06:00 07/31/17 06:00 Labs: Abnormal Lab Results - Last 24 Hours (Table) 07/30/17 07/30/17 07/31/17 Range/Units 16:58 20:57 06:00 RBC 3.82 L (4.30-5.90) m/uL Hgb 12.4 L (13.0-17.5) gm/dL Hct 36.1 L (39.0-53.0) % Plt Count 112 L (150-450) k/uL Glucose (74-99) mg/dL POC Glucose (mg/dL) 200 H 264 H (75-99) mg/dL ALT (21-72) U/L Total Protein (6.3-8.2) g/dL Albumin (3.5-5.0) g/dL 07/31/17 07/31/17 07/31/17 Range/Units 06:00 06:02 12:24 RBC (4.30-5.90) m/uL Hgb (13.0-17.5) gm/dL Hct (39.0-53.0) % Plt Count (150-450) k/uL Glucose 179 H (74-99) mg/dL POC Glucose (mg/dL) 180 H 182 H (75-99) mg/dL ALT 84 H (21-72) U/L Total Protein 5.3 L (6.3-8.2) g/dL Albumin 3.0 L (3.5-5.0) g/dL Microbiology - Last 24 Hours (Table) 07/29/17 Unknown Urine Culture - Preliminary Urine,Voided Assessment and Plan Assessment: Assessment: #1. Symptomatic coronary artery disease, cardiac catheterization performed showed severe proximal stenosis of the RCA, progression of stenosis of the proximal LAD and patent circumflex stents. #2. History of coronary artery disease, with prior stenting of the circumflex artery and prior history of myocardial infarction #3. Diabetes mellitus type 2 #4. Nicotine dependence, ongoing #5. Daily alcohol intake, patient drinks around a pint of Rum a day #6. Hyperlipidemia, hypertension #7. GERD/reflux #8. Chronic lumbar pain #9. Osteoarthritis #10. History of nephrolithiasis Plan: The patient was seen and evaluated by Dr. Marshall. PFT results were reviewed. FEV1 value 65% of predicted. He is again educated regarding the importance of complete smoking cessation. He is educated regarding the use of the incentive spirometer and cough and deep breathing exercises in the postoperative period. Increase his activity as tolerated. Continue to remain active until surgery next week. I, the cosigning physician, performed a history & physical examination of the patient. Lungs sounds are clear. Maintaining good O2 saturations in the 90s on room air. I discussed the assessment and plan of care with my nurse practitioner, Amanda Durand. I attest to the above note as dictated by her.
[2017-07-31 16:49] LABS: Glucose,Whole Blood 204 mg/dL (75-99)
--- NOTE | 2017-07-31 17:23 | P.PN ---
Subjective 47-year-old gentleman admitted with chest pain, possible acute non-STEMI with known history of CAD, VT, and multiple other medical issues. Evaluated by cardiology. Underwent cardiac catheterization this morning, reporting triple vessel disease: 60-70% stenosis of LAD involving ostial portion, 95% in the proximal RCA, 60% stenosis just prior to bifurcation into the PDA and PLV. Cardiothoracic surgery and pulmonary consulted. Carotid Doppler reporting thick neck with no significant velocity elevations. LFTs improving. Denies chest pain, palpitations or increased shortness of breath. 07/30/2017 developed hematoma at right groin site of cardiac cath., during the night. Ultrasound reporting pseudoaneurysm, status post injection with complete thrombosis as per IR. Denies abdominal pain. Evaluated by cardiothoracic surgery, scheduled for CABG on Wednesday. Denies chest pain, palpitations or increasing shortness of breath. Blood sugars remain elevated in the 200s. 07/31/2017 No overnight events Objective - Vital Signs Vital signs: Vital Signs Temp 97.3 F L 07/31/17 15:13 Pulse 72 07/31/17 15:13 Resp 18 07/31/17 15:13 BP 147/97 07/31/17 15:13 Pulse Ox 98 07/31/17 15:13 Intake & Output 07/30/17 07/31/17 07/31/17 18:59 06:59 18:59 Intake Total 230 640 Output Total 1750 400 Balance -1520 -400 640 Weight 122 kg 121.7 kg Intake: Oral 230 640 Output: Urine 1750 400 Other: Voiding Method Urinal Urinal # Voids 1 1 1 - Exam GENERAL: Sitting up in bed, no acute distress HEENT: Conjunctivae normal. eyes normal. Oral mucosa moist NECK: No JVD. No thyroid enlargement. No LNs CARDIOVASCULAR: Regular S1, S2. No murmur RESPIRATION: Breath sounds diminished in the bases. no rhonchi, no crackles. No wheezing ABDOMEN: Soft, nontender . No guarding. no masses palpable. Bowel sounds heard. LEGS: No edema. no swelling PSYCHIATRY: Alert and oriented -3, mood and affect normal. NERVOUS SYSTEM: Cranial N 2-12 grossly normal. Moves all 4 limbs. Diffuse weakness No focal deficits. Skin: Right groin puncture site hematoma, large ecchymosis - Labs CBC & Chem 7: 07/31/17 06:00 07/31/17 06:00 Labs: Abnormal Lab Results - Last 24 Hours (Table) 07/30/17 07/31/17 07/31/17 Range/Units 20:57 06:00 06:00 RBC 3.82 L (4.30-5.90) m/uL Hgb 12.4 L (13.0-17.5) gm/dL Hct 36.1 L (39.0-53.0) % Plt Count 112 L (150-450) k/uL Glucose 179 H (74-99) mg/dL POC Glucose (mg/dL) 264 H (75-99) mg/dL ALT 84 H (21-72) U/L Total Protein 5.3 L (6.3-8.2) g/dL Albumin 3.0 L (3.5-5.0) g/dL 07/31/17 07/31/17 07/31/17 Range/Units 06:02 12:24 16:45 RBC (4.30-5.90) m/uL Hgb (13.0-17.5) gm/dL Hct (39.0-53.0) % Plt Count (150-450) k/uL Glucose (74-99) mg/dL POC Glucose (mg/dL) 180 H 182 H 204 H (75-99) mg/dL ALT (21-72) U/L Total Protein (6.3-8.2) g/dL Albumin (3.5-5.0) g/dL Microbiology - Last 24 Hours (Table) 07/29/17 Unknown Urine Culture - Final Urine,Voided Assessment and Plan Plan: 1. Chest pain, possible acute non-STEMI, status post cardiac catheterization with triple-vessel disease, CABG pending 2. Troponin 0.044 3. CAD with history of VT and stent 4. Diabetes mellitus type 2, hemoglobin A1c 9.6 5. Gastroesophageal reflux disease 6. Hyperlipidemia 7. Alcohol abuse 8. Ongoing nicotine abuse 9. Pseudoaneurysm Plan: Continue on current medication regime ,monitoring and symptomatic treatment. Levemir and pre-meal insulin added to med regime with close monitoring of Accu-Cheks. CABG scheduled for Wednesday. Aggressive pulmonary toileting, incentive spirometer .
[2017-07-31 20:55] LABS: Glucose,Whole Blood 239 mg/dL (75-99)
[2017-07-31] MEDS: INSULIN DETEMIR 100 UNIT/ML 10 ML VIAL SQ SCH (21:21)
[2017-08-01] MEDS: MORPHINE SULFATE/PF 10MG/10ML VL IVP PRN ×3 (04:13→23:21)
[2017-08-01 05:48] LABS: Glucose,Whole Blood 240 mg/dL (75-99)
[2017-08-01 06:56] LABS: Basophils % (A) 0 %; Eosinophils # (A) 0.2 k/uL (0-0.7); Eosinophils % (A) 4 %; HCT 36.6 % (39.0-53.0); HGB 11.8 gm/dL (13.0-17.5); Lymphocytes % (A) 19 %; MCH 30.9 pg (25.0-35.0); MCHC 32.2 g/dL (31.0-37.0); MCV 96.2 fL (80.0-100.0); Mean Platelet Volume 8.9; Monocytes # (A) 0.5 k/uL (0-1.0); Monocytes % (A) 9 %; Neutrophils # (A) 3.6 k/uL (1.3-7.7); Neutrophils % (A) 65 %; Platelet Count 106 k/uL (150-450); RDW 13.6 % (11.5-15.5); WBC 5.5 k/uL (3.8-10.6)
[2017-08-01] MEDS: INSULIN ASPART 100 UNIT/ML 1 ML 10 ML VIAL SQ SCH ×7 (07:05→21:13)
[2017-08-01 07:15] LABS: ALT 102 U/L (21-72); AST 37 U/L (17-59); Albumin 3.1 g/dL (3.5-5.0); Alkaline Phosphatase 98 U/L (38-126); Anion Gap 6 mmol/L; Blood Urea Nitrogen 19 mg/dL (9-20); Carbon Dioxide 30 mmol/L (22-30); Chloride 105 mmol/L (98-107); Glucose 218 mg/dL (74-99); Potassium 4.6 mmol/L (3.5-5.1); Sodium 141 mmol/L (137-145); Total Bilirubin 0.5 mg/dL (0.2-1.3); Total Protein 5.4 g/dL (6.3-8.2)
[2017-08-01] MEDS: FAMOTIDINE 20 MG TAB PO SCH ×2 (09:37→21:13)
[2017-08-01] MEDS: ATORVASTATIN 80 MG TAB PO SCH (09:37)
[2017-08-01] MEDS: ASPIRIN 325 MG TAB PO SCH (09:37)
[2017-08-01] MEDS: MULTIVITAMINS, THERA 1 EACH TAB PO SCH (09:38)
[2017-08-01] MEDS: GLIMEPIRIDE 2 MG TAB PO SCH ×2 (09:38→21:13)
[2017-08-01] MEDS: METOPROLOL TARTRATE 25 MG TAB PO SCH ×2 (09:38→21:13)
[2017-08-01] MEDS: MUPIROCIN 2% OINT 22 GM TUBE NASAL SCH ×2 (09:38→21:14)
[2017-08-01] MEDS: NICOTINE 21MG/24HR PATCH TRANSDERM SCH (09:40)
[2017-08-01] MEDS: NON-FORMULARY DRUG (Fish Oil/Dha/Epa [Fish Oil 1,200 Mg Fish Oil] 1 CAP) PO SCH (09:46)
--- NOTE | 2017-08-01 10:46 | P.PN ---
Subjective Progress Note Date: 08/01/17 Principal diagnosis: Coronary artery disease Progress note dated 08/01/2017 This is a 47-year-old male who has symptomatic coronary artery disease. The patient has a anticipated bypass grafting coming up in the next day or so. In addition CAD with prior stenting of the circumflex coronary artery and previous history of myocardial infarction, the patient has a history of diabetes chronic nicotine dependence daily alcohol use hyperlipidemia hypertension GERD chronic back pain and osteoarthritis. The patient is to have bypass grafting I believe tomorrow. Lung function were reasonable. His effort was not great. Currently , the patient is not having any chest pain or chest discomfort palpitations nausea vomiting diarrhea diaphoresis shortness of breath chest tightness wheezing coughing or phlegm production. He seems pretty stable this time. Objective - Vital Signs Vital signs: Vital Signs Temp 96.9 F L 08/01/17 08:00 Pulse 73 08/01/17 08:00 Resp 18 08/01/17 08:00 BP 129/84 08/01/17 08:00 Pulse Ox 98 08/01/17 08:00 Intake & Output 07/31/17 08/01/17 08/01/17 18:59 06:59 18:59 Intake Total 1120 Balance 1120 Weight 119 kg Intake: Oral 1120 Other: Voiding Method Urinal # Voids 1 2 - Exam No acute distress, oriented 3. Not wearing any supplemental oxygen. HEENT examination is grossly unremarkable. Mucous membranes are moist. No oral lesions. Neck supple. Full range of motion. No adenopathy thyromegaly or neck vein distention. Cardiovascular examination reveals regular rhythm rate. S1-S2 normal. No S3 or S4. No discernible murmur noted. Lungs reveal clear breath sounds. Her sounds are equal bilaterally. No adventitious lung sounds including wheezes rhonchi or crackles. Abdomen soft bowel sounds are heard. No masses or tenderness. Extremities are intact. No cyanosis clubbing or edema. Skin is without rash or lesion. Neurologic examination is brief but nonfocal. - Labs CBC & Chem 7: 08/01/17 06:25 08/01/17 06:25 Labs: Abnormal Lab Results - Last 24 Hours (Table) 07/31/17 07/31/17 07/31/17 Range/Units 12:24 16:45 20:53 RBC (4.30-5.90) m/uL Hgb (13.0-17.5) gm/dL Hct (39.0-53.0) % Plt Count (150-450) k/uL Glucose (74-99) mg/dL POC Glucose (mg/dL) 182 H 204 H 239 H (75-99) mg/dL ALT (21-72) U/L Total Protein (6.3-8.2) g/dL Albumin (3.5-5.0) g/dL 08/01/17 08/01/17 08/01/17 Range/Units 05:45 06:25 06:25 RBC 3.80 L (4.30-5.90) m/uL Hgb 11.8 L (13.0-17.5) gm/dL Hct 36.6 L (39.0-53.0) % Plt Count 106 L (150-450) k/uL Glucose 218 H (74-99) mg/dL POC Glucose (mg/dL) 240 H (75-99) mg/dL ALT 102 H (21-72) U/L Total Protein 5.4 L (6.3-8.2) g/dL Albumin 3.1 L (3.5-5.0) g/dL Microbiology - Last 24 Hours (Table) 07/29/17 Unknown Urine Culture - Final Urine,Voided Assessment and Plan Assessment: Assessment Symptomatic multivessel coronary artery disease, with anticipated bypass grafting in next day or so. Previous history of stenting of the circumflex coronary artery and previous history of myocardial infarction Diabetes mellitus, type II Ongoing tobacco use and nicotine addiction Daily and chronic alcohol abuse, at one pint a day Hyperlipidemia Hypertension GERD Chronic back pain History of kidney stones Plan: Plan dated 08/01/2017 The patient will possibly have surgery tomorrow. From the pulmonary standpoint he stable. Lung function are reviewed. He has no pulmonary complaints at this time. The patient encouraged to do deep breathing coughing and clearing of any secretions. Surgically and he uses the incentive spirometry every hour while awake. He's instructed on the importance of that. No additional recommendations are made. Prognosis is guarded. Time with Patient: Less than 30
[2017-08-01 11:41] LABS: Glucose,Whole Blood 123 mg/dL (75-99)
--- NOTE | 2017-08-01 11:46 | P.PN ---
Subjective Progress Note Date: 08/01/17 Principal diagnosis: Symptomatic multivessel coronary artery disease, history of known coronary artery disease with post prior stenting to his right coronary artery and circumflex coronary artery, obesity, diabetes mellitus type 2, hypertension, hyperlipidemia, myocardial infarction this admission troponins as high as 0.044 , osteoarthritis, history of pneumonia, and GERD. The patient is ambulating in his room. He is in no acute distress. He denies any complaints of pain or shortness of breath. He remains to have some ecchymosis to his right groin, soft touch. Preoperative FEV1 completed which shows a FEV1 predicted value of 65%. The patient had some questions regarding his surgery in the morning and his questions were answered to the best of my ability. He has read through the open heart hand book given to him and reports that he plans on watching the open heart video on channel 19 today. Objective - Vital Signs Vital signs: Vital Signs Temp 96.9 F L 08/01/17 08:00 Pulse 73 08/01/17 08:00 Resp 18 08/01/17 08:00 BP 129/84 08/01/17 08:00 Pulse Ox 98 08/01/17 08:00 Intake & Output 07/31/17 08/01/17 08/01/17 18:59 06:59 18:59 Intake Total 1120 240 Balance 1120 240 Weight 119 kg Intake: Oral 1120 240 Other: Voiding Method Urinal # Voids 1 2 - Constitutional General appearance: Present: cooperative, no acute distress, obese - EENT Eyes: Present: PERRLA ENT: Present: hearing grossly normal - Neck Details: No JVD, neck is supple, no lymphadenopathy. No thyroidomegaly. - Respiratory Details: Lung sounds are essentially clear throughout. Respirations are symmetrical and nonlabored. He is achieving 2500 mL on his incentive spirometry. Oxygen saturations are 98% on room air. - Cardiovascular Details: Regular rhythm and rate. S1 and S2 present, negative for S3, gallop or murmur. Remote telemetry showing normal sinus rhythm heart rate 71. No edema present. - Gastrointestinal Gastrointestinal Comment(s): Abdomen is soft, nontender nondistended. Active bowel sounds all 4 abdominal quadrants. No organomegaly, no guarding or rigidity. - Genitourinary Genitourinary Comment(s): Adequate urine output. Voiding clear yellow urine. - Integumentary Integumentary Comment(s): Skin is warm and dry. No clubbing or cyanosis. Multiple tattoos. - Neurologic Neurologic: Present: CNII-XII intact - Musculoskeletal Musculoskeletal: Present: gait normal, strength equal bilaterally - Psychiatric Psychiatric: Present: A&O x's 3, appropriate affect, intact judgment & insight - Allied health notes Allied health notes reviewed: nursing - Labs CBC & Chem 7: 08/01/17 06:25 08/01/17 06:25 Labs: Abnormal Lab Results - Last 24 Hours (Table) 07/31/17 07/31/17 07/31/17 Range/Units 12:24 16:45 20:53 RBC (4.30-5.90) m/uL Hgb (13.0-17.5) gm/dL Hct (39.0-53.0) % Plt Count (150-450) k/uL Glucose (74-99) mg/dL POC Glucose (mg/dL) 182 H 204 H 239 H (75-99) mg/dL ALT (21-72) U/L Total Protein (6.3-8.2) g/dL Albumin (3.5-5.0) g/dL Crossmatch 08/01/17 08/01/17 08/01/17 Range/Units 05:45 06:25 06:25 RBC 3.80 L (4.30-5.90) m/uL Hgb 11.8 L (13.0-17.5) gm/dL Hct 36.6 L (39.0-53.0) % Plt Count 106 L (150-450) k/uL Glucose (74-99) mg/dL POC Glucose (mg/dL) 240 H (75-99) mg/dL ALT (21-72) U/L Total Protein (6.3-8.2) g/dL Albumin (3.5-5.0) g/dL Crossmatch See Detail 08/01/17 Range/Units 06:25 RBC (4.30-5.90) m/uL Hgb (13.0-17.5) gm/dL Hct (39.0-53.0) % Plt Count (150-450) k/uL Glucose 218 H (74-99) mg/dL POC Glucose (mg/dL) (75-99) mg/dL ALT 102 H (21-72) U/L Total Protein 5.4 L (6.3-8.2) g/dL Albumin 3.1 L (3.5-5.0) g/dL Crossmatch Microbiology - Last 24 Hours (Table) 07/29/17 Unknown Urine Culture - Final Urine,Voided - Imaging and Cardiology Chest x-ray: report reviewed, image reviewed Assessment and Plan (1) History of myocardial infarction Current Visit: Yes Status: Acute Code(s): I25.2 - OLD MYOCARDIAL INFARCTION SNOMED Code(s): 291585679 (2) Coronary artery disease Current Visit: Yes Status: Acute Code(s): I25.10 - ATHSCL HEART DISEASE OF [place] CORONARY ARTERY W/O ANG PCTRS SNOMED Code(s): 71149930 (3) Hypertension Current Visit: Yes Status: Acute Code(s): I10 - ESSENTIAL (PRIMARY) HYPERTENSION SNOMED Code(s): 68651948 (4) Diabetes mellitus type 2 in obese Current Visit: Yes Status: Acute Code(s): E11.69 - TYPE 2 DIABETES MELLITUS WITH OTHER SPECIFIED COMPLICATION; E66.9 - OBESITY, UNSPECIFIED SNOMED Code(s) : 30420496 (5) Obesity (BMI 30-39.9) Current Visit: Yes Status: Acute Code(s): E66.9 - OBESITY, UNSPECIFIED SNOMED Code(s): 450914935 (6) History of pneumonia Current Visit: Yes Status: Acute Code(s): Z87.01 - PERSONAL HISTORY OF PNEUMONIA (RECURRENT) SNOMED Code(s): 184028968 (7) GERD (gastroesophageal reflux disease) Current Visit: Yes Status: Acute Code(s): K21.9 - GASTRO-ESOPHAGEAL REFLUX DISEASE WITHOUT ESOPHAGITIS SNOMED Code(s): 869883268 (8) Hyperlipemia Current Visit: No Status: Acute Code(s): E78.5 - HYPERLIPIDEMIA, UNSPECIFIED SNOMED Code(s): 80790308 (9) Nicotine dependence Current Visit: No Status: Acute Code(s): F17.200 - NICOTINE DEPENDENCE, UNSPECIFIED, UNCOMPLICATED SNOMED Code(s): 80619256 Plan: 1. Continue to maximize preoperative medical management, continue aspirin, statin and beta kayla. 2. Encourage use of his incentive spirometry every hour while awake. 3. Preoperative teaching initiated in progress. 4. The patient is scheduled for myocardial revascularization on Wednesday, 2017 to be performed by Dr. Liriano. 5. Medical management per primary care service. 6. STS risk score was calculated and has been discussed with the patient by Dr. Liriano. 7. The importance of smoking cessation was discussed with the patient. 8. More recommendations to follow as patient progresses in his care. Time with Patient: Greater than 30
[2017-08-01] MEDS: FOLIC ACID 1 MG TAB PO SCH (12:18)
[2017-08-01] MEDS: THIAMINE 100 MG TAB PO SCH ×2 (12:19→17:35)
--- NOTE | 2017-08-01 12:49 | P.PN ---
Subjective 47-year-old gentleman admitted with chest pain, possible acute non-STEMI with known history of CAD, FL, and multiple other medical issues. Evaluated by cardiology. Underwent cardiac catheterization this morning, reporting triple vessel disease: 60-70% stenosis of LAD involving ostial portion, 95% in the proximal RCA, 60% stenosis just prior to bifurcation into the PDA and PLV. Cardiothoracic surgery and pulmonary consulted. Carotid Doppler reporting thick neck with no significant velocity elevations. LFTs improving. Denies chest pain, palpitations or increased shortness of breath. 07/30/2017 developed hematoma at right groin site of cardiac cath., during the night. Ultrasound reporting pseudoaneurysm, status post injection with complete thrombosis as per IR. Denies abdominal pain. Evaluated by cardiothoracic surgery, scheduled for CABG on Wednesday. Denies chest pain, palpitations or increasing shortness of breath. Blood sugars remain elevated in the 200s. 07/31/2017 No overnight events 08/01/2017 No chest pain no significant overnight events Objective - Vital Signs Vital signs: Vital Signs Temp 96.9 F L 08/01/17 08:00 Pulse 73 08/01/17 08:00 Resp 18 08/01/17 08:00 BP 129/84 08/01/17 08:00 Pulse Ox 98 08/01/17 08:00 Intake & Output 07/31/17 08/01/17 08/01/17 18:59 06:59 18:59 Intake Total 1120 240 Balance 1120 240 Weight 119 kg Intake: Oral 1120 240 Other: Voiding Method Urinal # Voids 1 2 - Exam GENERAL: Sitting up in bed, no acute distress HEENT: Conjunctivae normal. eyes normal. Oral mucosa moist NECK: No JVD. No thyroid enlargement. No LNs CARDIOVASCULAR: Regular S1, S2. No murmur RESPIRATION: Breath sounds diminished in the bases. no rhonchi, no crackles. No wheezing ABDOMEN: Soft, nontender . No guarding. no masses palpable. Bowel sounds heard. LEGS: No edema. no swelling PSYCHIATRY: Alert and oriented -3, mood and affect normal. NERVOUS SYSTEM: Cranial N 2-12 grossly normal. Moves all 4 limbs. Diffuse weakness No focal deficits. Skin: Right groin puncture site hematoma, large ecchymosis - Labs CBC & Chem 7: 08/01/17 06:25 08/01/17 06:25 Labs: Abnormal Lab Results - Last 24 Hours (Table) 07/31/17 07/31/17 08/01/17 Range/Units 16:45 20:53 05:45 RBC (4.30-5.90) m/uL Hgb (13.0-17.5) gm/dL Hct (39.0-53.0) % Plt Count (150-450) k/uL Glucose (74-99) mg/dL POC Glucose (mg/dL) 204 H 239 H 240 H (75-99) mg/dL ALT (21-72) U/L Total Protein (6.3-8.2) g/dL Albumin (3.5-5.0) g/dL Crossmatch 08/01/17 08/01/17 08/01/17 Range/Units 06:25 06:25 06:25 RBC 3.80 L (4.30-5.90) m/uL Hgb 11.8 L (13.0-17.5) gm/dL Hct 36.6 L (39.0-53.0) % Plt Count 106 L (150-450) k/uL Glucose 218 H (74-99) mg/dL POC Glucose (mg/dL) (75-99) mg/dL ALT 102 H (21-72) U/L Total Protein 5.4 L (6.3-8.2) g/dL Albumin 3.1 L (3.5-5.0) g/dL Crossmatch See Detail 08/01/17 Range/Units 11:37 RBC (4.30-5.90) m/uL Hgb (13.0-17.5) gm/dL Hct (39.0-53.0) % Plt Count (150-450) k/uL Glucose (74-99) mg/dL POC Glucose (mg/dL) 123 H (75-99) mg/dL ALT (21-72) U/L Total Protein (6.3-8.2) g/dL Albumin (3.5-5.0) g/dL Crossmatch Microbiology - Last 24 Hours (Table) 07/29/17 Unknown Urine Culture - Final Urine,Voided Assessment and Plan Plan: 1. Chest pain, possible acute non-STEMI, status post cardiac catheterization with triple-vessel disease, CABG pending 2. Troponin 0.044 3. CAD with history of FL and stent 4. Diabetes mellitus type 2, hemoglobin A1c 9.6 5. Gastroesophageal reflux disease 6. Hyperlipidemia 7. Alcohol abuse 8. Ongoing nicotine abuse 9. Pseudoaneurysm Plan: Continue on current medication regime ,monitoring and symptomatic treatment. Levemir and pre-meal insulin added to med regime with close monitoring of Accu-Cheks. CABG scheduled for Wednesday. Aggressive pulmonary toileting, incentive spirometer .
--- NOTE | 2017-08-01 13:28 | CONS ---
CONSULTATION 47-year-old gentleman who is admitted to hospital with unstable angina. Underwent cardiac catheterization. He is to have bypass surgery. The patient developed a pseudoaneurysm and this has since been injected. He complains of groin discomfort but is otherwise doing well. Ambulating in the hallways without any problems. EXAM: Today, he has extensive ecchymosis and discomfort in the right groin, but there are no pulsatile masses and no bruit. Foot pulses are intact. Vital signs are stable. There is no jugular venous distention. Chest is clear to auscultation. Heart exam reveals first and second heart sounds. No gallop or murmur. Abdomen is soft. Exam of extremities did not reveal any edema. Peripheral pulses are felt. The patient is on aspirin and atorvastatin, Catapres, metoprolol. ASSESSMENT: 1. Three-vessel coronary artery disease. 2. Pseudoaneurysm, status post occlusion. PLAN: Patient is doing well and will undergo surgery on Wednesday. MMODL / IJN: [id number] /
[2017-08-01] MEDS: ALPRAZolam 0.5 MG TAB PO PRN ×2 (15:05→23:22)
[2017-08-01 16:58] LABS: Glucose,Whole Blood 190 mg/dL (75-99)
[2017-08-01 20:50] LABS: Glucose,Whole Blood 159 mg/dL (75-99)
[2017-08-01] MEDS ORDERED: INSULIN DETEMIR 100 UNIT/ML 10 ML VIAL SQ SCH (21:00)
[2017-08-01] MEDS ORDERED: LACTATED RINGERS 1,000 ML IV SCH (22:30)
[2017-08-02] MEDS ORDERED: CLEVIDIPINE BUTYRATE 25 MG in EMPTY BAG 1 BAG IV PRN (05:00)
[2017-08-02] MEDS ORDERED: HEPARIN SODIUM 1,000 UN/ML (10ML VL) IV PRN (05:00)
[2017-08-02] MEDS ORDERED: MAGNESIUM SULFATE SYG 4.06 MEQ/ML SYRINGE IV PRN (05:00)
[2017-08-02] MEDS ORDERED: ATORVASTATIN 10 MG TAB PO PRN (05:00)
[2017-08-02] MEDS ORDERED: PAPAVERINE 360 MG in SODIUM CHLORIDE 0.9% 90 ML IV PRN (05:00)
[2017-08-02] MEDS ORDERED: DEXTROSE 5% IN WATER 1,000 ML with POTASSIUM CHLORIDE 110 MEQ, MAGNESIUM SULFATE 16 MEQ... IV PRN ×5 (05:00)
[2017-08-02] MEDS ORDERED: ASPIRIN 325 MG TAB PO PRN (05:00)
[2017-08-02] MEDS ORDERED: PROTAMINE SULFATE 10 MG/ML 25 ML VIAL IV PRN (05:00)
[2017-08-02] MEDS ORDERED: PROPOFOL 1,000 MG in EMPTY BAG 1 BAG IV PRN (05:00)
[2017-08-02] MEDS ORDERED: METOPROLOL TARTRATE 12.5 MG TAB PO PRN (05:00)
[2017-08-02] MEDS ORDERED: DEXTROSE 5% IN WATER 1,000 ML with POTASSIUM CHLORIDE 25 MEQ, SODIUM CHLORIDE 4MEQ/ML V... IV PRN ×6 (05:00)
[2017-08-02] MEDS ORDERED: ALBUMIN HUMAN 5% 500 ML in EMPTY BAG 1 BAG IVPB PRN ×6 (05:00)
[2017-08-02] MEDS ORDERED: PHENYLEPHRINE-0.9% NACL SYG 1 MG/10 ML SYRINGE IV PRN ×4 (05:00)
[2017-08-02] MEDS ORDERED: NITROGLYCERIN-D5W PMX 25 MG/250 ML BTL IV PRN (05:00)
[2017-08-02] MEDS ORDERED: CHLORHEXIDINE GLUCONATE 15 ML CUP MUCOUS MEM PRN (05:00)
[2017-08-02] MEDS ORDERED: ceFAZolin 2,000 MG in SODIUM CHLORIDE 0.9% 30 ML IVPB PRN (05:00)
[2017-08-02] MEDS ORDERED: ceFAZolin 1,000 MG in SODIUM CHLORIDE 0.9% IRRIGATIO 1,000 ML IRRIGATION PRN (05:00)
[2017-08-02] MEDS ORDERED: HEPARIN SODIUM,PORCINE 5,000 UNIT in SODIUM CHLORIDE 0.9% 500 ML IV PRN (05:00)
[2017-08-02] MEDS ORDERED: ceFAZolin 3 GM in SODIUM CHLORIDE 0.9% 30 ML IVPB PRN (05:00)
[2017-08-02] MEDS ORDERED: NITROGLYCERIN-D5W PMX 50 MG in DEXTROSE/WATER 1 250ML.BAG IV PRN (05:00)
[2017-08-02] MEDS ORDERED: CALCIUM CHLORIDE 100 MG/ML 10 ML SYRINGE IVP PRN (05:00)
[2017-08-02] MEDS ORDERED: PHENYLEPHRINE 40 MG in SODIUM CHLORIDE 0.9% 250 ML IV PRN (05:00)
[2017-08-02] MEDS ORDERED: INSULIN REGULAR 100 UNIT in SODIUM CHLORIDE 0.9% 100 ML IV PRN (05:00)
[2017-08-02] MEDS ORDERED: TRANEXAMIC ACID 2,000 MG in SODIUM CHLORIDE 0.9% 180 ML IV PRN (05:00)
[2017-08-02] MEDS ORDERED: ALBUMIN HUMAN 25% 50 ML in EMPTY BAG 1 BAG IVPB PRN (05:00)
[2017-08-02] MEDS ORDERED: NOREPINEPHRIN 4 MG-0.9% NS PMX 4 MG/250 ML ML IV PRN (05:00)
[2017-08-02] MEDS ORDERED: SODIUM BICARB 8.4% 50 ML SYR (1 MEQ/ML) IV PRN (05:00)
[2017-08-02] MEDS ORDERED: MANNITOL 25% 12.5 GM/50 ML VIAL IV PRN ×2 (05:00)
[2017-08-02] MEDS ORDERED: LACTATED RINGERS 1,000 ML IV PRN (05:00)
[2017-08-02] MEDS ORDERED: PROTAMINE SULFATE 250 MG in EMPTY BAG 1 BAG IV PRN (05:00)
[2017-08-02] MEDS: METOPROLOL TARTRATE 25 MG TAB PO SCH (05:21)
[2017-08-02 05:50] LABS: Glucose,Whole Blood 218 mg/dL (75-99)
[2017-08-02 05:58] LABS: Basophils % (A) 1 %; Eosinophils # (A) 0.2 k/uL (0-0.7); Eosinophils % (A) 3 %; HCT 42.5 % (39.0-53.0); HGB 13.7 gm/dL (13.0-17.5); Lymphocytes # (A) 1.2 k/uL (1.0-4.8); Lymphocytes % (A) 20 %; MCHC 32.3 g/dL (31.0-37.0); Monocytes # (A) 0.5 k/uL (0-1.0); Monocytes % (A) 9 %; Neutrophils # (A) 3.9 k/uL (1.3-7.7); Neutrophils % (A) 65 %; Platelet Count 126 k/uL (150-450); RBC 4.43 m/uL (4.30-5.90); RDW 13.7 % (11.5-15.5)
[2017-08-02 06:10] LABS: INR 0.9 (<1.2); Prothrombin Time 9.5 sec (9.0-12.0)
[2017-08-02 06:17] LABS: ALT 111 U/L (21-72); AST 39 U/L (17-59); Albumin 3.8 g/dL (3.5-5.0); Alkaline Phosphatase 116 U/L (38-126); Anion Gap 9 mmol/L; Blood Urea Nitrogen 21 mg/dL (9-20); Calcium 9.6 mg/dL (8.4-10.2); Carbon Dioxide 31 mmol/L (22-30); Chloride 103 mmol/L (98-107); Glucose 215 mg/dL (74-99); Potassium 3.9 mmol/L (3.5-5.1); Sodium 143 mmol/L (137-145); Total Bilirubin 0.8 mg/dL (0.2-1.3); Total Protein 6.4 g/dL (6.3-8.2)
[2017-08-02] MEDS ORDERED: SODIUM CHLORIDE 0.9% 1,000 ML BAG ONE (08:03)
[2017-08-02] MEDS ORDERED: ELECTROLYTE-R (PH 7.4) 1,000 ML IV.SOLN IV ONE (08:03)
[2017-08-02] MEDS ORDERED: HEPARIN SODIUM,PORCINE 5,000 UNIT/ML 1 ML VIAL ONE (08:03)
[2017-08-02] MEDS ORDERED: SODIUM CHLORIDE 0.9% 250 ML BAG ONE (08:03)
[2017-08-02] MEDS ORDERED: HEPARIN SODIUM,PORCINE 10,000 UNIT/ML 1 ML VIAL ONE (08:03)
[2017-08-02] MEDS ORDERED: MIDAZOLAM 2 MG/2 ML VIAL ONE (08:03)
[2017-08-02] MEDS ORDERED: PROTAMINE SULFATE 10 MG/ML 25 ML VIAL IV ONE (08:03)
[2017-08-02] MEDS ORDERED: TRANEXAMIC ACID 1,000 MG/10 ML VIAL ONE (08:03)
[2017-08-02] MEDS ORDERED: fentaNYL (PF) 50 MCG/ML 50 ML VIAL ONE (08:03)
[2017-08-02] MEDS ORDERED: VECURONIUM 10 MG VIAL IV ONE (08:03)
[2017-08-02] MEDS ORDERED: PROPOFOL 10 MG/ML 20 ML VIAL IV ONE (08:03)
[2017-08-02] MEDS ORDERED: MORPHINE SULFATE 10 MG/ML SYRINGE ONE (08:03)
[2017-08-02] MEDS ORDERED: MAGNESIUM SULFATE 4 MEQ/ML 2 ML VIAL ONE (08:03)
[2017-08-02 08:39] LABS: ABG Base Excess 2.5 mmol/L; ABG HCO3 28 mmol/L (21-25); ABG Oxygen Saturation 99.4 % (94-97); ABG PCO2 46 mmHg (35-45); ABG PO2 133 mmHg (83-108); ABG Potassium Whole Blood 4.7 mmol/L (3.4-4.5); ABG Sodium Whole Blood 140 mmol/L (135-146); ABG TCO2 29 mmol/L (19-24)
[2017-08-02 10:21] LABS: ABG Base Excess 1.8 mmol/L; ABG HCO3 27 mmol/L (21-25); ABG Oxygen Saturation 98.3 % (94-97); ABG PCO2 42 mmHg (35-45); ABG PH 7.42 (7.35-7.45); ABG PO2 99 mmHg (83-108); ABG Potassium Whole Blood 4.6 mmol/L (3.4-4.5); ABG Sodium Whole Blood 139 mmol/L (135-146); ABG TCO2 28 mmol/L (19-24)
[2017-08-02 11:19] LABS: ABG Base Excess 1.2 mmol/L; ABG HCO3 27 mmol/L (21-25); ABG PCO2 49 mmHg (35-45); ABG PH 7.35 (7.35-7.45); ABG PO2 292 mmHg (83-108); ABG Potassium Whole Blood 5.2 mmol/L (3.4-4.5); ABG Sodium Whole Blood 135 mmol/L (135-146); ABG TCO2 29 mmol/L (19-24)
[2017-08-02 11:40] LABS: ABG Base Excess 1.7 mmol/L; ABG HCO3 27 mmol/L (21-25); ABG PCO2 42 mmHg (35-45); ABG PH 7.41 (7.35-7.45); ABG PO2 204 mmHg (83-108); ABG Sodium Whole Blood 134 mmol/L (135-146); ABG TCO2 28 mmol/L (19-24)
[2017-08-02 11:45] LABS: ABG Potassium Whole Blood 6.2 mmol/L (3.4-4.5)
[2017-08-02] MEDS ORDERED: DESMOPRESSIN INJ 30 MCG in SODIUM CHLORIDE 0.9% 50 ML IVPB ONE (14:00)
[2017-08-02 14:06] LABS: ABG Base Excess -0.7 mmol/L; ABG HCO3 26 mmol/L (21-25); ABG Oxygen Saturation 95.3 % (94-97); ABG PCO2 49 mmHg (35-45); ABG PH 7.33 (7.35-7.45); ABG PO2 81 mmHg (83-108); ABG Sodium Whole Blood 138 mmol/L (135-146); ABG TCO2 27 mmol/L (19-24)
[2017-08-02 14:07] LABS: ABG Potassium Whole Blood 5.3 mmol/L (3.4-4.5)
[2017-08-02] MEDS ORDERED: ALBUMIN HUMAN 5% 250 ML in EMPTY BAG 1 BAG IVPB PRN (14:32)
[2017-08-02] MEDS ORDERED: BENZOCAINE/MENTHOL LOZENG 1 EACH LOZENGE MUCOUS MEM PRN (14:32)
[2017-08-02] MEDS ORDERED: LORazepam 2 MG/ML INJ IV PRN ×2 (14:32)
[2017-08-02] MEDS ORDERED: CALCIUM GLUCONATE 2,000 MG in SODIUM CHLORIDE 0.9% 100 ML IVPB PRN (14:32)
[2017-08-02] MEDS ORDERED: Phosphorus Replacement Protoco 1 EACH MISC MISCELLANE PRN (14:32)
[2017-08-02] MEDS ORDERED: PROPOFOL 1,000 MG in EMPTY BAG 1 BAG IV SCH (14:32)
[2017-08-02] MEDS ORDERED: Magnesium Replacement Protocol 1 EACH MISC MISCELLANE PRN (14:32)
[2017-08-02] MEDS ORDERED: ONDANSETRON 4 MG/2 ML VIAL IVP PRN (14:32)
[2017-08-02] MEDS ORDERED: NITROGLYCERIN-D5W PMX 50 MG in DEXTROSE/WATER 1 250ML.BAG IV SCH (14:32)
[2017-08-02] MEDS ORDERED: Potassium Replacement Protocol 1 EACH MISC MISCELLANE PRN (14:32)
[2017-08-02 14:54] LABS: Glucose,Whole Blood 210 mg/dL (75-99)
[2017-08-02 14:58] LABS: ABG Base Excess 0.7 mmol/L; ABG HCO3 26 mmol/L (21-25); ABG PCO2 44 mmHg (35-45); ABG PH 7.38 (7.35-7.45); ABG PO2 327 mmHg (83-108); ABG Sodium Whole Blood 135 mmol/L (135-146); ABG TCO2 27 mmol/L (19-24)
[2017-08-02 15:06] LABS: Ionized Calcium 4.9 mg/dL (4.5-5.3)
[2017-08-02 15:09] LABS: Basophils % (A) 0 %; Eosinophils # (A) 0.1 k/uL (0-0.7); Eosinophils % (A) 1 %; HCT 32.7 % (39.0-53.0); Lymphocytes # (A) 0.6 k/uL (1.0-4.8); Lymphocytes % (A) 11 %; MCH 31.1 pg (25.0-35.0); MCHC 32.4 g/dL (31.0-37.0); Mean Platelet Volume 9.2; Monocytes # (A) 0.3 k/uL (0-1.0); Monocytes % (A) 5 %; Neutrophils % (A) 83 %; RBC 3.41 m/uL (4.30-5.90); RDW 13.7 % (11.5-15.5); WBC 6.1 k/uL (3.8-10.6)
[2017-08-02 15:10] LABS: HGB 10.6 gm/dL (13.0-17.5); INR 1.1 (<1.2); Prothrombin Time 10.3 sec (9.0-12.0)
[2017-08-02] MEDS: MORPHINE SULFATE/PF 10MG/10ML VL IVP PRN ×2 (15:12→22:08)
--- NOTE | 2017-08-02 15:14 | XR ---
EXAMINATION TYPE: XR chest 1V portable DATE OF EXAM: 08/02/2017 COMPARISON: Prior chest x-ray 07/28/2017 HISTORY: Postop cardiac surgery TECHNIQUE: Single frontal view of the chest is obtained. FINDINGS: Patient is post median sternotomy. Endotracheal tube, NG tube, left chest tube, median lety rnal drains, epicardial pacing leads, overlying cardiac leads, right jugular central venous catheter and coaxial Hermitage-Jt catheter are overlying appropriate positions. There is no evident pneumothorax or sizable effusion. Patient is rotated, lung volumes are low. Perihilar increased density suggests u nderlying atelectasis. The heart is enlarged. IMPRESSION: Satisfactory postoperative chest x-ray. Probable atelectasis.
[2017-08-02 15:17] LABS: ALT 77 U/L (21-72); AST 50 U/L (17-59); Albumin 2.7 g/dL (3.5-5.0); Alkaline Phosphatase 74 U/L (38-126); Anion Gap 7 mmol/L; Blood Urea Nitrogen 21 mg/dL (9-20); Calcium 7.7 mg/dL (8.4-10.2); Carbon Dioxide 25 mmol/L (22-30); Chloride 108 mmol/L (98-107); Glucose 176 mg/dL (74-99); Magnesium 2.3 mg/dL (1.6-2.3); Potassium 5.6 mmol/L (3.5-5.1); Sodium 140 mmol/L (137-145); Total Bilirubin 0.7 mg/dL (0.2-1.3); Total Protein 4.6 g/dL (6.3-8.2)
[2017-08-02 15:25] LABS: ABG Base Excess -1.1 mmol/L; ABG HCO3 24 mmol/L (21-25); ABG Oxygen Saturation 97.5 % (94-97); ABG PCO2 43 mmHg (35-45); ABG PH 7.37 (7.35-7.45); ABG PO2 87 mmHg (83-108); ABG TCO2 26 mmol/L (19-24)
[2017-08-02 15:25] LABS: Glucose,Whole Blood 188 mg/dL (75-99)
[2017-08-02] MEDS: IPRATROPIUM-ALBUTEROL 3 ML NEB INHALATION SCH ×2 (15:34→19:10)
[2017-08-02] MEDS: INSULIN REGULAR 100 UNIT in SODIUM CHLORIDE 0.9% 100 ML IV SCH (15:35)
[2017-08-02 15:37] LABS: Polychromasia Present
[2017-08-02 15:38] LABS: Platelet Count 88 k/uL (150-450)
[2017-08-02] MEDS ORDERED: ESMOLOL 100 MG/10 ML VIAL IV ONE (15:40)
[2017-08-02] MEDS: ACETAMINOPHEN IV (For NPO) 1,000 MG in EMPTY BAG 1 BAG IVPB SCH ×2 (15:42→23:20)
[2017-08-02] MEDS: LACTATED RINGERS 1,000 ML IV SCH (15:43)
[2017-08-02] MEDS: CLEVIDIPINE BUTYRATE 25 MG in EMPTY BAG 1 BAG IV SCH ×3 (15:44→22:35)
[2017-08-02] MEDS: ceFAZolin IN SWFI 2 GM/20 ML SYRINGE IVP SCH (16:09)
[2017-08-02 16:19] LABS: Glucose,Whole Blood 210 mg/dL (75-99)
--- NOTE | 2017-08-02 16:50 | OP ---
OPERATIVE REPORT DATE OF SURGERY: 08/02/2017. PREOPERATIVE DIAGNOSIS: Coronary artery disease. POSTOPERATIVE DIAGNOSIS: Coronary artery disease. PROCEDURE: 1. Coronary bypass grafting x3 vessels (left internal mammary artery to left anterior descending artery, saphenous vein graft to diagonal artery, saphenous vein graft to posterior lateral branch of right coronary artery). 2. Endoscopic vein harvest of left greater saphenous vein. 3. Epiaortic ultrasound. 4. Transesophageal echocardiogram. SURGEON: Ko Liriano MD. BRIQUETTE MACHINE OPERATOR HELPER: 1. KAROLINE Chandler. 2. KAROLINE Cheney. ANESTHESIA: General. SPECIMENS: None. COMPLICATIONS: None. INDICATION: The patient is a 47-year-old male with a history of coronary artery disease status post placement of coronary stents in the past, currently on Plavix, along with hypertension, hyperlipidemia, diabetes mellitus, and daily alcohol use who presented to the hospital with chest pain. Cardiac catheterization revealed multivessel coronary disease including progression of known disease in the proximal right coronary artery as well as progression of disease in the proximal left anterior descending artery. A coronary artery bypass was recommended. The risks, benefits, and alternatives of the procedure were discussed with the patient. All questions were answered. Consent was obtained. FINDINGS: The left internal mammary artery was a good caliber vessel. Saphenous vein was a good conduit. The LAD measured 1.5 mm. The diagonal artery measured 1.3 mm. The posterolateral branch of the right coronary artery measured 1.5 mm. PROCEDURE IN DETAIL: The patient was taken to the operating room and placed supine on the operating table. After the induction of general anesthesia, he was prepped and draped in the usual sterile fashion. Preoperative transesophageal echocardiogram was performed. This study revealed an ejection fraction of about 45-50% with no significant valvular pathology. A median sternotomy was performed. The left internal mammary artery was harvested in the standard fashion taking care to clip all branches. Intravenous heparin was administered. The vessel was transected distally revealing brisk flow. The artery was a good conduit. Simultaneously, greater saphenous vein was harvested from the left lower extremity. This was performed in an endoscopic fashion. All branches were tied. The vein was a good conduit. A pericardial cradle was created. The ascending aorta was palpated. There was no significant calcific plaque noted. Epiaortic ultrasound was performed. Again no significant calcific plaque was noted. An arterial cannula was placed in the distal ascending aorta. A venous cannula was placed through the right atrial appendage and directed into the IVC. Both antegrade and retrograde catheters were placed as well. The patient was then placed on cardiopulmonary bypass with good decompression of the heart. The aortic cross-clamp was applied. Cold blood potassium cardioplegia was delivered in both antegrade and retrograde fashion to achieve arrest of the heart. Of note, cardioplegia was delivered every 15 to 20 minutes while the patient remained under crossclamp. We began by inspecting the inferior wall. The PDA was identified. It was small and contained diffuse disease. It was not amenable to bypass. The distal right coronary artery was palpated. It too contained disease. The posterior lateral branch of the right coronary artery was eventually identified. I felt it was amenable to bypass. A small arteriotomy was created. This also accepted a 1 mm probe. Using saphenous vein in a reverse fashion, an end-to-side anastomosis was created. This was performed using a running 7-0 Prolene suture. The graft was hemostatic and had great flow. Next the lateral wall was inspected. The OM branches were quite small and not good bypass targets. The diagonal artery was then identified. It was dissected free. An arteriotomy was created. This vessel accepted a 1 mm probe. Using saphenous vein in a reverse fashion, an end-to-side anastomosis created. This was performed using running 7 -0 Prolene suture. The graft was hemostatic and had great flow. Finally the left anterior descending artery was identified. It was dissected free in its midportion. A small arteriotomy was created. This vessel accepted a 1.5 mm probe. Using the left internal mammary artery, an end-to-side anastomosis was created. This was performed using running 8-0 Prolene suture. The graft was hemostatic. The mammary pedicle was then tacked to the anterior surface of the heart. Attention was then turned to the proximal anastomoses. These were performed in end-to- side fashion using running 6-0 Prolene sutures. Lidocaine and magnesium were administered. The aortic cross-clamp was removed. The grafts were de-aired in the standard fashion. Distal anastomoses were inspected and appeared to be hemostatic. The retrograde catheter was removed. The patient was then weaned off cardiopulmonary bypass. He without any difficulty. Followup transesophageal echocardiogram confirmed good ejection fraction. There was no significant valvular pathology. Protamine was administered. There were no adverse reactions. The remaining cannulas were removed. The mediastinum was copiously irrigated with warm saline solution. All surgical sites were inspected and appeared to be hemostatic. Reinforcement sutures were placed as needed. Next, a fair amount of time was spent drying up, as the patient had been on Plavix previously. Once satisfactory hemostasis was achieved, the soft tissue was reapproximated over the ascending aorta as well as over the apex of the heart. Of note, temporary atrial and ventricular pacing wires had already been placed. A straight 32- [place] chest tube was placed and directed into the left pleural space. Two additional straight 32-[place] chest tubes were placed into the mediastinum. These were all secured to the skin using sutures. Due to the patient's body habitus, I elected to reapproximate the sternum using the pioneer cable system. These were placed and cinched down in a [id number] fashion. At completion of closure, the sternum was well opposed. The remainder of the wound was then closed in layers. A sterile dressing was applied. The patient appeared to have tolerated the procedure well. There were no immediate complications. He returned to the ICU in critical but stable condition. MMODL / IJN: [id number] / ALEX
[2017-08-02 17:04] LABS: Glucose,Whole Blood 178 mg/dL (75-99)
--- NOTE | 2017-08-02 17:50 | P.PN ---
Subjective Progress Note Date: 08/02/17 Principal diagnosis: Symptomatic coronary artery disease, status post coronary artery bypass graft Kanwal Gunn is a 47-year-old white male patient who follows with Dr. Araujo, presented to the emergency department on 07/28/2017 at 2215 with complaints of a burning sensation in the left arm, chest discomfort, not feeling well, nausea , and shortness of breath. Patient denied any fever or chills. Denied any cough or congestion. Past medical history includes coronary artery disease, diabetes mellitus, GERD/reflux, hyperlipidemia, hypertension, previous myocardial infarction, osteoarthritis, pneumonia, colitis, nephrolithiasis. Patient is a current smoker, has smoked for close to 35 years. He has a daily alcohol intake. EKG completed in the emergency room showed normal sinus rhythm with T-wave inversion in lead III and aVF. Chest x-ray was negative for any acute cardiopulmonary process. Blood work showed a EDC of 6.7, hemoglobin of 15.1, d-dimer was negative at 0.50, electrolytes were within normal limits, renal profile was normal. First and second Troponins were elevated at 0.044, 0.035. Patient was noted to have mild elevation of his AST, ALT, and alkaline phosphatase, at 67, 202, and 148 respectively. Lipase was 303, serum alcohol was less than 10. Patient underwent cardiac catheterization which revealed disease in the LAD at 60-70% involving the ostial portion, circumflex coronary artery that was previously stented was patent. There was a 95% stenosis in the right coronary artery proximally. There was a 60% stenosis before the bifurcation into PDA and PLV, with a PDA being diffusely diseased. Cardiothoracic surgery was consulted for evaluation for coronary artery bypass grafting. We are consulted for preop CABG pulmonary evaluation and postop CABG pulmonary management. The patient is seen again today 07/30/2017 in follow-up on the selective care unit. He is awake and alert in no acute distress. He is resting quite comfortably in bed. He denies any shortness of breath, cough or congestion. Maintaining good O2 saturations in the upper 90s on room air. He's been afebrile. Hemodynamically stable. No chest pain, palpitations lightheadedness or dizziness. The patient is seen again today 07/31/2017 in follow-up on the selective care unit. He is awake and alert in no acute distress. He denies any shortness of breath, cough or congestion. No chest pain, palpitations lightheadedness or dizziness. He continues to maintain good O2 saturations in the 90s on room air. His PFT was reviewed FEV1 value 65% of predicted and his lung function is more than adequate to support general anesthesia. He remains afebrile. Hemodynamically stable. White count 6.1. Hemoglobin 12.4. Creatinine 0.72. Progress note dated 08/01/2017 This is a 47-year-old male who has symptomatic coronary artery disease. The patient has a anticipated bypass grafting coming up in the next day or so. In addition CAD with prior stenting of the circumflex coronary artery and previous history of myocardial infarction, the patient has a history of diabetes chronic nicotine dependence daily alcohol use hyperlipidemia hypertension GERD chronic back pain and osteoarthritis. The patient is to have bypass grafting I believe tomorrow. Lung function were reasonable. His effort was not great. Currently , the patient is not having any chest pain or chest discomfort palpitations nausea vomiting diarrhea diaphoresis shortness of breath chest tightness wheezing coughing or phlegm production. He seems pretty stable this time. On 08/02/2017 patient seen intubated, and mechanically ventilated post coronary artery bypass grafting 3, OMALLEY to LAD, SVG to the diagonal, SVG to the posterior lateral branch of the RCA with endoscopic vein harvest of left greater saphenous vein. Patient is sedated, on mechanical ventilation on assist control mode with a rate of 12, tidal volume of 570, FiO2 100%, and PEEP of 10. Postop blood gases showed pH of 7.37, pCO2 43, pO2 of 87, this was done 100% FiO2. FiO2 was decreased to 80%. Patient is currently on maintenance IV fluids of lactated Ringer's at the rate of 50 ML per hour, and a postoperative was hypertensive, and was on high doses of clevidipine, which was subsequently weaned off. Diprivan is infusing at 25 mics per kilo per minute, nitroglycerin is running at 5 mics per minute, and insulin is at 5 units per hour. Patient is hemodynamically stable, cardiac output is 6.6, cardiac index is 2.9. Patient is in sinus rhythm at a rate of 94 BPM. Blood pressure is 114/67, PA pressures are 35/27. She has 2 mediastinal's and left pleural chest tubes with small amount of serosanguineous drainage. No air leak noted. Patient is producing adequate amount of urine, 80 to 130 ML per hour. Patient's serum potassium will be rechecked in 2 hours. Patient's EBL was 1800 mL, patient received 700 mL of Cell Saver Intra-Op, and 2 L of crystalloids. Midsternal incision is clean dry and intact, covered with dressing. Lung sounds are clear , no rhonchi, no wheezes or rales auscultated. Patient's chest x-ray has been reviewed, and showed satisfactory postoperative chest x-ray, with the ET tube and NG tube, left chest tube, mediastinal chest tubes, epicardial pacing leads, PA catheter in appropriate position. Objective - Vital Signs Vital signs: Vital Signs Temp 98.2 F 08/02/17 06:12 Pulse 101 H 08/02/17 16:00 Resp 18 08/02/17 06:12 BP 167/85 08/02/17 06:12 Pulse Ox 98 08/02/17 14:32 Intake & Output 08/01/17 08/02/17 08/02/17 18:59 06:59 18:59 Intake Total 740 279.482 Output Total 2800 Balance 740 -2520.518 Weight 117.8 kg Intake: IV 241 Cardiac Output 40 LR 150 pressure bags 18 Intake, IV Titration 20 38.482 Amount Clevidipine Butyrate 25 23.201 mg In Empty Bag 1 bag @ 1 MG/HR 2 mls/hr IV .Q24H ANDRE Rx#:[id number] Insulin Regular 100 unit 7.306 In Sodium Chloride 0.9% 100 ml @ Per Protocol IV .Q0M ANDRE Rx#:[id number] Propofol 1,000 mg In 7.975 Empty Bag 1 bag @ Titrate IV .Q0M ANDRE Rx#: [id number] Sodium Chloride 0.9% 1, 20 000 ml @ 75 mls/hr IV . [id number] PRN Rx#:[id number] Oral 720 Output: Chest Tube Drainage 85 Bilateral Mediastinal 55 Left Pleural 30 Urine 915 Estimated Blood Loss 1800 Other: Voiding Method Urinal # Voids 1 - Exam GENERAL EXAM: Sedated 47-year-old white male, seen intubated, on mechanical ventilation postop coronary artery bypass grafting, comfortable in no apparent distress. HEAD: Normocephalic/atraumatic. EYES: Normal reaction of pupils, equal size. Conjunctiva pink, sclera white. NOSE: Clear with pink turbinates. THROAT: No erythema or exudates. NECK: No masses, no JVD, no thyroid enlargement, no adenopathy. CHEST: No chest wall deformity. Symmetrical expansion. Midsternal incision is clean dry and intact, covered with surgical dressing. 2 mediastinal and one pleural chest tubes connected to wall suction, with small amount of sanguinous output. Epicardial pacemaker wires are connected to an external pacemaker backup settings. Patient is non-pacemaker dependent, intrinsic rhythm sinus rhythm with a rate of 93 BPM. LUNGS: Equal air entry with no crackles, wheeze, rhonchi or dullness. CVS: Regular rate and rhythm, normal S1 and S2, no gallops, no murmurs, no rubs ABDOMEN: Soft, nontender. No hepatosplenomegaly, normal bowel sounds, no guarding or rigidity. EXTREMITIES: No clubbing, no edema, no cyanosis, 2+ pulses and upper and lower extremities. Left leg incisions are covered with surgical dressing, and Denny wrapped MUSCULOSKELETAL: Muscle strength and tone normal. SPINE: No scoliosis or deformity SKIN: No rashes CENTRAL NERVOUS SYSTEM:Sedated, no focal deficits, tone is normal in all 4 extremities. - Labs CBC & Chem 7: 08/02/17 14:52 08/02/17 14:52 Labs: Abnormal Lab Results - Last 24 Hours (Table) 08/01/17 08/01/17 08/02/17 Range/Units 06:25 20:48 05:39 RBC (4.30-5.90) m/uL Hgb (13.0-17.5) gm/dL Hct (39.0-53.0) % Plt Count 126 L (150-450) k/uL Lymphocytes # (1.0-4.8) k/uL ABG pH (7.35-7.45) ABG pCO2 (35-45) mmHg ABG pO2 (83-108) mmHg ABG HCO3 (21-25) mmol/L ABG Total CO2 (19-24) mmol/L ABG O2 Saturation (94-97) % ABG Hematocrit (34.0-46.0) % ABG Sodium (135-146) mmol/L ABG Potassium (3.4-4.5) mmol/L ABG Ionized Calcium (4.5-5.3) mg/dL ABG Glucose (75-99) mg/dL Hemoglobin (13.0-17.5) gm/dL Potassium (3.5-5.1) mmol/L Chloride (98-107) mmol/L Carbon Dioxide (22-30) mmol/L BUN (9-20) mg/dL Glucose (74-99) mg/dL POC Glucose (mg/dL) 159 H (75-99) mg/dL Calcium (8.4-10.2) mg/dL ALT (21-72) U/L Total Protein (6.3-8.2) g/dL Albumin (3.5-5.0) g/dL Arterial Blood Potassium (3.4-4.5) mmol/L Arterial Blood Glucose (75-99) mg/dL Crossmatch See Detail 08/02/17 08/02/17 08/02/17 Range/Units 05:39 05:47 08:38 RBC (4.30-5.90) m/uL Hgb (13.0-17.5) gm/dL Hct (39.0-53.0) % Plt Count (150-450) k/uL Lymphocytes # (1.0-4.8) k/uL ABG pH (7.35-7.45) ABG pCO2 46 H (35-45) mmHg ABG pO2 133 H (83-108) mmHg ABG HCO3 28 H (21-25) mmol/L ABG Total CO2 29 H (19-24) mmol/L ABG O2 Saturation 99.4 H (94-97) % ABG Hematocrit (34.0-46.0) % ABG Sodium (135-146) mmol/L ABG Potassium 4.7 H (3.4-4.5) mmol/L ABG Ionized Calcium (4.5-5.3) mg/dL ABG Glucose 163 H (75-99) mg/dL Hemoglobin 12.7 L (13.0-17.5) gm/dL Potassium (3.5-5.1) mmol/L Chloride (98-107) mmol/L Carbon Dioxide 31 H (22-30) mmol/L BUN 21 H (9-20) mg/dL Glucose 215 H (74-99) mg/dL POC Glucose (mg/dL) 218 H (75-99) mg/dL Calcium (8.4-10.2) mg/dL ALT 111 H (21-72) U/L Total Protein (6.3-8.2) g/dL Albumin (3.5-5.0) g/dL Arterial Blood Potassium 4.7 H (3.4-4.5) mmol/L Arterial Blood Glucose 163 H (75-99) mg/dL Crossmatch 08/02/17 08/02/17 08/02/17 Range/Units 10:20 11:18 11:39 RBC (4.30-5.90) m/uL Hgb (13.0-17.5) gm/dL Hct (39.0-53.0) % Plt Count (150-450) k/uL Lymphocytes # (1.0-4.8) k/uL ABG pH (7.35-7.45) ABG pCO2 49 H (35-45) mmHg ABG pO2 292 H 204 H (83-108) mmHg ABG HCO3 27 H 27 H 27 H (21-25) mmol/L ABG Total CO2 28 H 29 H 28 H (19-24) mmol/L ABG O2 Saturation 98.3 H 100.0 H 100.0 H (94-97) % ABG Hematocrit 25 L 26 L (34.0-46.0) % ABG Sodium 134 L (135-146) mmol/L ABG Potassium 4.6 H 5.2 H 6.2 H* (3.4-4.5) mmol/L ABG Ionized Calcium 4.4 L 4.4 L (4.5-5.3) mg/dL ABG Glucose 164 H 228 H 249 H (75-99) mg/dL Hemoglobin 11.6 L 8.3 L 8.4 L (13.0-17.5) gm/dL Potassium (3.5-5.1) mmol/L Chloride (98-107) mmol/L Carbon Dioxide (22-30) mmol/L BUN (9-20) mg/dL Glucose (74-99) mg/dL POC Glucose (mg/dL) (75-99) mg/dL Calcium (8.4-10.2) mg/dL ALT (21-72) U/L Total Protein (6.3-8.2) g/dL Albumin (3.5-5.0) g/dL Arterial Blood Potassium 4.6 H 5.2 H 6.2 H* (3.4-4.5) mmol/L Arterial Blood Glucose 164 H 228 H 249 H (75-99) mg/dL Crossmatch 08/02/17 08/02/17 08/02/17 Range/Units 12:23 14:06 14:52 RBC (4.30-5.90) m/uL Hgb (13.0-17.5) gm/dL Hct (39.0-53.0) % Plt Count (150-450) k/uL Lymphocytes # (1.0-4.8) k/uL ABG pH 7.33 L (7.35-7.45) ABG pCO2 49 H (35-45) mmHg ABG pO2 327 H 81 L (83-108) mmHg ABG HCO3 26 H 26 H (21-25) mmol/L ABG Total CO2 27 H 27 H (19-24) mmol/L ABG O2 Saturation 100.0 H (94-97) % ABG Hematocrit 26 L (34.0-46.0) % ABG Sodium (135-146) mmol/L ABG Potassium 6.0 H 5.3 H (3.4-4.5) mmol/L ABG Ionized Calcium 4.4 L (4.5-5.3) mg/dL ABG Glucose 248 H 194 H (75-99) mg/dL Hemoglobin 8.3 L 11.1 L (13.0-17.5) gm/dL Potassium (3.5-5.1) mmol/L Chloride (98-107) mmol/L Carbon Dioxide (22-30) mmol/L BUN (9-20) mg/dL Glucose (74-99) mg/dL POC Glucose (mg/dL) 210 H (75-99) mg/dL Calcium (8.4-10.2) mg/dL ALT (21-72) U/L Total Protein (6.3-8.2) g/dL Albumin (3.5-5.0) g/dL Arterial Blood Potassium 6.0 H 5.3 H (3.4-4.5) mmol/L Arterial Blood Glucose 248 H 194 H (75-99) mg/dL Crossmatch 08/02/17 08/02/17 08/02/17 Range/Units 14:52 14:52 15:22 RBC 3.41 L (4.30-5.90) m/uL Hgb 10.6 L D (13.0-17.5) gm/dL Hct 32.7 L (39.0-53.0) % Plt Count 88 L (150-450) k/uL Lymphocytes # 0.6 L (1.0-4.8) k/uL ABG pH (7.35-7.45) ABG pCO2 (35-45) mmHg ABG pO2 (83-108) mmHg ABG HCO3 (21-25) mmol/L ABG Total CO2 26 H (19-24) mmol/L ABG O2 Saturation 97.5 H (94-97) % ABG Hematocrit (34.0-46.0) % ABG Sodium (135-146) mmol/L ABG Potassium (3.4-4.5) mmol/L ABG Ionized Calcium (4.5-5.3) mg/dL ABG Glucose (75-99) mg/dL Hemoglobin (13.0-17.5) gm/dL Potassium 5.6 H (3.5-5.1) mmol/L Chloride 108 H (98-107) mmol/L Carbon Dioxide (22-30) mmol/L BUN 21 H (9-20) mg/dL Glucose 176 H (74-99) mg/dL POC Glucose (mg/dL) (75-99) mg/dL Calcium 7.7 L (8.4-10.2) mg/dL ALT 77 H (21-72) U/L Total Protein 4.6 L (6.3-8.2) g/dL Albumin 2.7 L (3.5-5.0) g/dL Arterial Blood Potassium (3.4-4.5) mmol/L Arterial Blood Glucose (75-99) mg/dL Crossmatch 08/02/17 08/02/17 08/02/17 Range/Units 15:23 16:17 17:01 RBC (4.30-5.90) m/uL Hgb (13.0-17.5) gm/dL Hct (39.0-53.0) % Plt Count (150-450) k/uL Lymphocytes # (1.0-4.8) k/uL ABG pH (7.35-7.45) ABG pCO2 (35-45) mmHg ABG pO2 (83-108) mmHg ABG HCO3 (21-25) mmol/L ABG Total CO2 (19-24) mmol/L ABG O2 Saturation (94-97) % ABG Hematocrit (34.0-46.0) % ABG Sodium (135-146) mmol/L ABG Potassium (3.4-4.5) mmol/L ABG Ionized Calcium (4.5-5.3) mg/dL ABG Glucose (75-99) mg/dL Hemoglobin (13.0-17.5) gm/dL Potassium (3.5-5.1) mmol/L Chloride (98-107) mmol/L Carbon Dioxide (22-30) mmol/L BUN (9-20) mg/dL Glucose (74-99) mg/dL POC Glucose (mg/dL) 188 H 210 H 178 H (75-99) mg/dL Calcium (8.4-10.2) mg/dL ALT (21-72) U/L Total Protein (6.3-8.2) g/dL Albumin (3.5-5.0) g/dL Arterial Blood Potassium (3.4-4.5) mmol/L Arterial Blood Glucose (75-99) mg/dL Crossmatch Assessment and Plan Plan: Assessment: #1. Symptomatic coronary artery disease, status post artery artery bypass grafting, 3 with OMALLEY to LAD, SVG to the Susan, and SVG to the posterior branch of the RCA, postop day 0 #2. History of coronary artery disease, with prior stenting of the circumflex artery and prior history of myocardial infarction #3. Diabetes mellitus type 2 #4. Nicotine dependence, ongoing #5. Daily alcohol intake, patient drinks around a pint of Rum a day #6. Hyperlipidemia, hypertension #7. GERD/reflux #8. Chronic lumbar pain #9. Osteoarthritis #10. History of nephrolithiasis Plan: Decrease FiO2 down to 50%, chest x-ray has been reviewed, ET tube, NG tube and chest tubes are all in satisfactory position. Close hemodynamic monitoring, start weaning trials, once the patient is awake, and is able to follow command. Anticipate extubation within 6 hours for OR exit time. Continue DuoNeb, proceed with pulmonary toileting after extubation. I performed a history & physical examination of the patient and discussed their management with my nurse practitioner, Dot Fisher. I reviewed the nurse practitioner's note and agree with the documented findings and plan of care. Lung sounds are clear. The findings and the impression was discussed with the patient. I attest to the documentation by the nurse practitioner. Time with Patient: Greater than 30
[2017-08-02 18:02] LABS: Glucose,Whole Blood 180 mg/dL (75-99)
[2017-08-02] MEDS: THIAMINE 100 MG TAB PO SCH ×2 (18:05→20:45)
[2017-08-02 18:14] LABS: Basophils % (A) 0 %; Eosinophils % (A) 0 %; HCT 30.9 % (39.0-53.0); HGB 10.2 gm/dL (13.0-17.5); Lymphocytes # (A) 0.5 k/uL (1.0-4.8); Lymphocytes % (A) 5 %; MCH 31.1 pg (25.0-35.0); MCHC 32.8 g/dL (31.0-37.0); MCV 94.7 fL (80.0-100.0); Mean Platelet Volume 9.9; Monocytes # (A) 0.9 k/uL (0-1.0); Monocytes % (A) 9 %; Neutrophils # (A) 8.1 k/uL (1.3-7.7); Neutrophils % (A) 85 %; Platelet Count 99 k/uL (150-450); RBC 3.27 m/uL (4.30-5.90); RDW 13.7 % (11.5-15.5); WBC 9.6 k/uL (3.8-10.6)
[2017-08-02 18:21] LABS: ALT 73 U/L (21-72); AST 51 U/L (17-59); Albumin 2.8 g/dL (3.5-5.0); Alkaline Phosphatase 71 U/L (38-126); Anion Gap 9 mmol/L; Blood Urea Nitrogen 22 mg/dL (9-20); Calcium 8.3 mg/dL (8.4-10.2); Carbon Dioxide 24 mmol/L (22-30); Chloride 107 mmol/L (98-107); Glucose 169 mg/dL (74-99); Potassium 4.2 mmol/L (3.5-5.1); Sodium 140 mmol/L (137-145); Total Bilirubin 0.8 mg/dL (0.2-1.3); Total Protein 4.5 g/dL (6.3-8.2)
[2017-08-02 19:06] LABS: Glucose,Whole Blood 166 mg/dL (75-99)
[2017-08-02 20:13] LABS: Glucose,Whole Blood 154 mg/dL (75-99)
[2017-08-02 20:42] LABS: ABG Base Excess 0.5 mmol/L; ABG HCO3 25 mmol/L (21-25); ABG PCO2 40 mmHg (35-45); ABG PH 7.41 (7.35-7.45); ABG PO2 112 mmHg (83-108); ABG TCO2 27 mmol/L (19-24)
[2017-08-02] MEDS: MUPIROCIN 2% OINT 22 GM TUBE NASAL SCH ×2 (20:44→22:08)
[2017-08-02] MEDS: FOLIC ACID 1 MG TAB PO SCH (20:45)
[2017-08-02] MEDS: INSULIN ASPART 100 UNIT/ML 1 ML 10 ML VIAL SQ SCH ×2 (20:45→20:46)
[2017-08-02] MEDS: NICOTINE 21MG/24HR PATCH TRANSDERM SCH (20:45)
[2017-08-02] MEDS: NON-FORMULARY DRUG (Fish Oil/Dha/Epa [Fish Oil 1,200 Mg Fish Oil] 1 CAP) PO SCH (20:46)
[2017-08-02] MEDS: GLIMEPIRIDE 2 MG TAB PO SCH (20:46)
[2017-08-02] MEDS: MULTIVITAMINS, THERA 1 EACH TAB PO SCH (20:46)
[2017-08-02] MEDS: FAMOTIDINE 20 MG TAB PO SCH (20:46)
[2017-08-02] MEDS: ATORVASTATIN 80 MG TAB PO SCH (20:46)
[2017-08-02] MEDS: ASPIRIN 325 MG TAB PO SCH (20:46)
[2017-08-02 21:11] LABS: Glucose,Whole Blood 157 mg/dL (75-99)
[2017-08-02 21:42] LABS: Basophils % (A) 0 %; Eosinophils % (A) 0 %; HCT 34.1 % (39.0-53.0); HGB 11.2 gm/dL (13.0-17.5); Lymphocytes # (A) 0.4 k/uL (1.0-4.8); Lymphocytes % (A) 3 %; MCH 31.3 pg (25.0-35.0); MCHC 32.8 g/dL (31.0-37.0); MCV 95.3 fL (80.0-100.0); Mean Platelet Volume 9.8; Monocytes # (A) 1.1 k/uL (0-1.0); Monocytes % (A) 9 %; Neutrophils # (A) 10.6 k/uL (1.3-7.7); Neutrophils % (A) 87 %; Platelet Count 109 k/uL (150-450); RBC 3.57 m/uL (4.30-5.90); RDW 13.7 % (11.5-15.5); WBC 12.2 k/uL (3.8-10.6)
[2017-08-02 21:46] LABS: Ionized Calcium 4.9 mg/dL (4.5-5.3)
[2017-08-02 21:50] LABS: Partial Thromboplastin Time 22.3 sec (22.0-30.0); Prothrombin Time 9.8 sec (9.0-12.0)
[2017-08-02 22:00] LABS: Anion Gap 12 mmol/L; Blood Urea Nitrogen 21 mg/dL (9-20); Calcium 8.8 mg/dL (8.4-10.2); Carbon Dioxide 22 mmol/L (22-30); Chloride 106 mmol/L (98-107); Glucose 155 mg/dL (74-99); Sodium 140 mmol/L (137-145)
[2017-08-02 22:02] LABS: Glucose,Whole Blood 174 mg/dL (75-99)
[2017-08-02] MEDS: HEPARIN SODIUM,PORCINE 5,000 UNIT/ML 1 ML VIAL SQ SCH (22:09)
[2017-08-02 22:59] LABS: Glucose,Whole Blood 192 mg/dL (75-99)
[2017-08-02 23:56] LABS: Glucose,Whole Blood 207 mg/dL (75-99)
[2017-08-03] MEDS: ceFAZolin IN SWFI 2 GM/20 ML SYRINGE IVP SCH ×2 (00:07→07:50)
[2017-08-03] MEDS: CLEVIDIPINE BUTYRATE 25 MG in EMPTY BAG 1 BAG IV SCH ×4 (00:57→06:37)
[2017-08-03 01:06] LABS: Glucose,Whole Blood 191 mg/dL (75-99)
[2017-08-03 02:13] LABS: Glucose,Whole Blood 169 mg/dL (75-99)
[2017-08-03 03:09] LABS: Glucose,Whole Blood 142 mg/dL (75-99)
[2017-08-03 03:47] LABS: Basophils % (A) 0 %; Eosinophils # (A) 0.1 k/uL (0-0.7); Eosinophils % (A) 1 %; HCT 32.8 % (39.0-53.0); HGB 11.4 gm/dL (13.0-17.5); Lymphocytes # (A) 0.9 k/uL (1.0-4.8); Lymphocytes % (A) 8 %; MCH 32.7 pg (25.0-35.0); MCHC 34.8 g/dL (31.0-37.0); MCV 94.1 fL (80.0-100.0); Mean Platelet Volume 8.6; Monocytes # (A) 1.1 k/uL (0-1.0); Monocytes % (A) 9 %; Neutrophils # (A) 9.6 k/uL (1.3-7.7); Neutrophils % (A) 79 %; Platelet Count 109 k/uL (150-450); RBC 3.49 m/uL (4.30-5.90); RDW 13.8 % (11.5-15.5)
[2017-08-03] MEDS: LORazepam 2 MG/ML INJ IV PRN (03:51)
[2017-08-03 03:54] LABS: Ionized Calcium 4.9 mg/dL (4.5-5.3)
[2017-08-03 03:59] LABS: Glucose,Whole Blood 143 mg/dL (75-99)
[2017-08-03 04:02] LABS: ALT 73 U/L (21-72); AST 89 U/L (17-59); Albumin 3.1 g/dL (3.5-5.0); Alkaline Phosphatase 74 U/L (38-126); Anion Gap 9 mmol/L; Blood Urea Nitrogen 21 mg/dL (9-20); Calcium 8.6 mg/dL (8.4-10.2); Carbon Dioxide 25 mmol/L (22-30); Chloride 104 mmol/L (98-107); Glucose 134 mg/dL (74-99); Magnesium 2.1 mg/dL (1.6-2.3); Phosphorus 3.7 mg/dL (2.5-4.5); Potassium 4.6 mmol/L (3.5-5.1); Sodium 138 mmol/L (137-145); Total Bilirubin 0.7 mg/dL (0.2-1.3); Total Protein 5.2 g/dL (6.3-8.2)
[2017-08-03 04:34] LABS: Partial Thromboplastin Time 23.8 sec (22.0-30.0)
[2017-08-03 05:02] LABS: Prothrombin Time 9.9 sec (9.0-12.0)
[2017-08-03 05:50] LABS: Glucose,Whole Blood 155 mg/dL (75-99)
[2017-08-03] MEDS: ESMOLOL IN SODIUM CHLORIDE PMX 2.5 GM in SALINE 1 250ML.BAG IV SCH ×2 (05:52→06:01)
[2017-08-03] MEDS: ACETAMINOPHEN IV (For NPO) 1,000 MG in EMPTY BAG 1 BAG IVPB SCH ×3 (05:54→17:43)
[2017-08-03 06:25] LABS: Glucose,Whole Blood 149 mg/dL (75-99)
[2017-08-03 07:01] LABS: Glucose,Whole Blood 135 mg/dL (75-99)
[2017-08-03] MEDS: KETOROLAC 30 MG/ML 1 ML VIAL IVP SCH ×4 (07:49→23:10)
[2017-08-03] MEDS: ASPIRIN 325 MG TAB PO SCH (07:50)
[2017-08-03] MEDS: HEPARIN SODIUM,PORCINE 5,000 UNIT/ML 1 ML VIAL SQ SCH ×3 (07:50→23:10)
[2017-08-03] MEDS: THIAMINE 100 MG TAB PO SCH ×2 (07:50→17:47)
[2017-08-03] MEDS: MUPIROCIN 2% OINT 22 GM TUBE NASAL SCH ×2 (07:51→21:00)
[2017-08-03] MEDS: ATORVASTATIN 40 MG TAB PO SCH (07:51)
[2017-08-03] MEDS: FOLIC ACID 1 MG TAB PO SCH (07:51)
[2017-08-03] MEDS: MULTIVITAMINS, THERA 1 EACH TAB PO SCH (07:52)
[2017-08-03] MEDS: CLOPIDOGREL 75 MG TAB PO SCH (07:54)
[2017-08-03] MEDS: PANTOPRAZOLE 40 MG TABLET PO SCH (07:54)
[2017-08-03 08:13] LABS: Glucose,Whole Blood 187 mg/dL (75-99)
--- NOTE | 2017-08-03 08:13 | XR ---
EXAMINATION TYPE: XR chest 1V portable DATE OF EXAM: 08/03/2017 COMPARISON: 08/02/2017 HISTORY: Postop cardiac surgery TECHNIQUE: Single frontal view of the chest is obtained. FINDINGS: Mediastinal drain and chest tube are noted with Thomson-Jt catheter. Tip of the Thomson-Jt c atheter somewhat distal lower lobe branch of the right pulmonary artery. Postsurgical changes are not ed. There is consolidation and small bilateral effusions. No pneumothorax. Interstitial pattern seen. IMPRESSION: Bilateral lower lobe infiltrate and small effusion correlate for mild central venous con gestion.
[2017-08-03] MEDS ORDERED: PANTOPRAZOLE 40 MG/10 ML VIAL IVP SCH (09:00)
[2017-08-03] MEDS ORDERED: METOPROLOL TARTRATE 12.5 MG TAB PO SCH (09:00)
[2017-08-03] MEDS ORDERED: METOPROLOL TARTRATE 25 MG TAB PO SCH (09:00)
[2017-08-03 09:12] LABS: Glucose,Whole Blood 221 mg/dL (75-99)
[2017-08-03] MEDS ORDERED: METOPROLOL TARTRATE 25 MG TAB PO STA (09:17)
[2017-08-03 10:11] LABS: Glucose,Whole Blood 180 mg/dL (75-99)
--- NOTE | 2017-08-03 10:50 | P.VSCSTY ---
Greater Saphenous Vein Mapping This is bilateral lower extremity greater saphenous vein mapping. Date of service 07/29/2017 Vein quality and ultrasound appearance no intraluminal thrombus or wall changes. Vein size groin right 7.6 x 6.3 groin left 4.6 x 4.4 High thigh right 5.3 x 4.4 high thigh left 4.4 x 3.7 Mid thigh right 5.0 x 4.1 mid thigh left 5.1 x 3.3 Above-knee right 6.0 x 2.9 above-knee left 4.1 x 2.4 Below knee right 3.3 x 3.0 below-knee left 4.1 x 2.6 Mid calf right 4.6 x 2.7 mid calf left 2.6 x 2.4 Ankle right 2.9 x 2.7 ankle left 4.8 x 3.9 Impression usable bilateral greater saphenous vein..
[2017-08-03] MEDS: IPRATROPIUM-ALBUTEROL 3 ML NEB INHALATION SCH ×3 (10:54→20:19)
[2017-08-03 11:17] LABS: Glucose,Whole Blood 150 mg/dL (75-99)
[2017-08-03] MEDS: LACTATED RINGERS 1,000 ML IV SCH (11:18)
--- NOTE | 2017-08-03 12:09 | P.PN ---
Subjective Progress Note Date: 08/03/17 On 08/03/2017, the patient is postop day #1 following coronary to bypass surgery. The patient underwent three-vessel bypass with OMALLEY to LAD, saphenous vein graft to diagonal, posterior lateral branch of RCA. The patient came into the intensive care unit intubated on a mechanical ventilator. Within 6 hours of arrival, the patient was weaned off the mechanical ventilator and the patient was extubated without any major difficulties. The patient is awake and alert this morning sitting up on a chair. The patient has a adequate hemodynamic with adequate cardiac output index. The [place]-Jt catheter will be removed. The chest x-ray shows small better pleural effusion and the chest tubes are all in good location. The patient was having some issues with hypertension. He was briefly placed on Cleviprex which was discontinued. Currently the patient is on nitroglycerin at 5 mcg/m. The patient is also on Lopressor this will be started this morning. He is afebrile. He is having adequate pain control. Sternum stable clean and intact. No change in mental status. He is following commands and answering questions appropriately. His underlying rhythm is sinus. His hemoglobin is at 11.4. The chest tube output from the left was 165 mL during this last shift and from the mediastinum is down 96 and mouth for the next shift. The patient's body weight is 121 kg. He will be encouraged to use the incentive spirometer. No other significant events overnight. Objective - Vital Signs Vital signs: Vital Signs Temp 98.2 F 08/02/17 06:12 Pulse 88 08/03/17 11:15 Resp 24 08/03/17 11:31 BP 107/61 08/03/17 11:00 Pulse Ox 100 08/03/17 11:00 Intake & Output 08/02/17 08/03/17 08/03/17 18:59 06:59 18:59 Intake Total 738.919 0096.955 1186.762 Output Total 3030 1616 465 Balance -2610.387 -457.045 721.762 Weight 121.1 kg 121.1 kg Intake: IV 323 802 289 Cardiac Output 60 130 20 LR 200 600 230 pressure bags 30 72 39 Intake, IV Titration 96.613 206.955 37.762 Amount Clevidipine Butyrate 25 23.201 157.867 3.733 mg In Empty Bag 1 bag @ 1 MG/HR 2 mls/hr IV .Q24H ANDRE Rx#:[id number] Insulin Regular 100 unit 12.356 44.591 34.029 In Sodium Chloride 0.9% 100 ml @ Per Protocol IV .Q0M ANDRE Rx#:[id number] Propofol 1,000 mg In 61.056 4.497 Empty Bag 1 bag @ Titrate IV .Q0M ANDRE Rx#: [id number] Oral 150 860 Output: Chest Tube Drainage 130 331 110 Bilateral Mediastinal 90 206 70 Left Pleural 40 125 40 Urine 1100 1285 355 Estimated Blood Loss 1800 Other: Voiding Method Indwelling Catheter Indwelling Catheter Indwelling Catheter # Voids 1 ABP, PAP, CO, CI - Last Documented Arterial Blood Pressure 142/80 Pulmonary Artery Pressure 28/17 Cardiac Output 6.5 Cardiac Index 2.8 - Exam Obese, comfortable likely distress. Following commands and answering questions appropriately. Head exam was generally normal. There was no scleral icterus or corneal arcus. Mucous membranes were moist.the patient has a right IJ Cordis the [place]-Jt catheter in place. Neck was supple and without jugular venous distension, thyromegaly, or carotid bruits. Carotids were easily palpable bilaterally. There was no adenopathy. Lung sounds are diminished in lung bases bilaterally. The patient is a mediastinal and left pleural chest tube. All of the chest tubes are in good location. Sternum stable clean and intact. Cardiac exam revealed the PMI to be normally situated and sized. The rhythm was regular and no extrasystoles were noted during several minutes of auscultation. The first and second heart sounds were normal and physiologic splitting of the second heart sound was noted. There were no murmurs, rubs, clicks, or gallops.Abdominal exam revealed normal bowel sounds. The abdomen was soft, non- tender, and without masses, organomegaly, or appreciable enlargement of the abdominal aorta.Examination of the extremities revealed easily palpable radial, femoral and pedal pulses. There was no cyanosis, clubbing or edema. All of the surgical wound site over the skin involving the thoracic wound and the lower oximetry wounds are dry clean and intact. Patient has equal and symmetrical pulses in lower extremities bilaterally without any cyanosis or clubbing. Neurologically the patient is intact and the patient is following commands and answering questions appropriately. - Labs CBC & Chem 7: 08/03/17 03:35 08/03/17 03:35 Labs: Abnormal Lab Results - Last 24 Hours (Table) 08/01/17 08/02/17 08/02/17 Range/Units 06:25 12:23 14:06 WBC (3.8-10.6) k/uL RBC (4.30-5.90) m/uL Hgb (13.0-17.5) gm/dL Hct (39.0-53.0) % Plt Count (150-450) k/uL Neutrophils # (1.3-7.7) k/uL Lymphocytes # (1.0-4.8) k/uL Monocytes # (0-1.0) k/uL ABG pH 7.33 L (7.35-7.45) ABG pCO2 49 H (35-45) mmHg ABG pO2 327 H 81 L (83-108) mmHg ABG HCO3 26 H 26 H (21-25) mmol/L ABG Total CO2 27 H 27 H (19-24) mmol/L ABG O2 Saturation 100.0 H (94-97) % ABG Hematocrit 26 L (34.0-46.0) % ABG Potassium 6.0 H 5.3 H (3.4-4.5) mmol/L ABG Ionized Calcium 4.4 L (4.5-5.3) mg/dL ABG Glucose 248 H 194 H (75-99) mg/dL Hemoglobin 8.3 L 11.1 L (13.0-17.5) gm/dL Potassium (3.5-5.1) mmol/L Chloride (98-107) mmol/L BUN (9-20) mg/dL Glucose (74-99) mg/dL POC Glucose (mg/dL) (75-99) mg/dL Calcium (8.4-10.2) mg/dL AST (17-59) U/L ALT (21-72) U/L Total Protein (6.3-8.2) g/dL Albumin (3.5-5.0) g/dL Arterial Blood Potassium 6.0 H 5.3 H (3.4-4.5) mmol/L Arterial Blood Glucose 248 H 194 H (75-99) mg/dL Crossmatch See Detail 08/02/17 08/02/1718 Range/Units 14:52 14:52 14:52 WBC (3.8-10.6) k/uL RBC 3.41 L (4.30-5.90) m/uL Hgb 10.6 L D (13.0-17.5) gm/dL Hct 32.7 L (39.0-53.0) % Plt Count 88 L (150-450) k/uL Neutrophils # (1.3-7.7) k/uL Lymphocytes # 0.6 L (1.0-4.8) k/uL Monocytes # (0-1.0) k/uL ABG pH (7.35-7.45) ABG pCO2 (35-45) mmHg ABG pO2 (83-108) mmHg ABG HCO3 (21-25) mmol/L ABG Total CO2 (19-24) mmol/L ABG O2 Saturation (94-97) % ABG Hematocrit (34.0-46.0) % ABG Potassium (3.4-4.5) mmol/L ABG Ionized Calcium (4.5-5.3) mg/dL ABG Glucose (75-99) mg/dL Hemoglobin (13.0-17.5) gm/dL Potassium 5.6 H (3.5-5.1) mmol/L Chloride 108 H (98-107) mmol/L BUN 21 H (9-20) mg/dL Glucose 176 H (74-99) mg/dL POC Glucose (mg/dL) 210 H (75-99) mg/dL Calcium 7.7 L (8.4-10.2) mg/dL AST (17-59) U/L ALT 77 H (21-72) U/L Total Protein 4.6 L (6.3-8.2) g/dL Albumin 2.7 L (3.5-5.0) g/dL Arterial Blood Potassium (3.4-4.5) mmol/L Arterial Blood Glucose (75-99) mg/dL Crossmatch 08/02/17 08/02/17 08/02/17 Range/Units 15:22 15:23 16:17 WBC (3.8-10.6) k/uL RBC (4.30-5.90) m/uL Hgb (13.0-17.5) gm/dL Hct (39.0-53.0) % Plt Count (150-450) k/uL Neutrophils # (1.3-7.7) k/uL Lymphocytes # (1.0-4.8) k/uL Monocytes # (0-1.0) k/uL ABG pH (7.35-7.45) ABG pCO2 (35-45) mmHg ABG pO2 (83-108) mmHg ABG HCO3 (21-25) mmol/L ABG Total CO2 26 H (19-24) mmol/L ABG O2 Saturation 97.5 H (94-97) % ABG Hematocrit (34.0-46.0) % ABG Potassium (3.4-4.5) mmol/L ABG Ionized Calcium (4.5-5.3) mg/dL ABG Glucose (75-99) mg/dL Hemoglobin (13.0-17.5) gm/dL Potassium (3.5-5.1) mmol/L Chloride (98-107) mmol/L BUN (9-20) mg/dL Glucose (74-99) mg/dL POC Glucose (mg/dL) 188 H 210 H (75-99) mg/dL Calcium (8.4-10.2) mg/dL AST (17-59) U/L ALT (21-72) U/L Total Protein (6.3-8.2) g/dL Albumin (3.5-5.0) g/dL Arterial Blood Potassium (3.4-4.5) mmol/L Arterial Blood Glucose (75-99) mg/dL Crossmatch 08/02/17 08/02/17 08/02/17 Range/Units 17:01 18:00 18:00 WBC (3.8-10.6) k/uL RBC 3.27 L (4.30-5.90) m/uL Hgb 10.2 L (13.0-17.5) gm/dL Hct 30.9 L (39.0-53.0) % Plt Count 99 L (150-450) k/uL Neutrophils # 8.1 H (1.3-7.7) k/uL Lymphocytes # 0.5 L (1.0-4.8) k/uL Monocytes # (0-1.0) k/uL ABG pH (7.35-7.45) ABG pCO2 (35-45) mmHg ABG pO2 (83-108) mmHg ABG HCO3 (21-25) mmol/L ABG Total CO2 (19-24) mmol/L ABG O2 Saturation (94-97) % ABG Hematocrit (34.0-46.0) % ABG Potassium (3.4-4.5) mmol/L ABG Ionized Calcium (4.5-5.3) mg/dL ABG Glucose (75-99) mg/dL Hemoglobin (13.0-17.5) gm/dL Potassium (3.5-5.1) mmol/L Chloride (98-107) mmol/L BUN 22 H (9-20) mg/dL Glucose 169 H (74-99) mg/dL POC Glucose (mg/dL) 178 H (75-99) mg/dL Calcium 8.3 L (8.4-10.2) mg/dL AST (17-59) U/L ALT 73 H (21-72) U/L Total Protein 4.5 L (6.3-8.2) g/dL Albumin 2.8 L (3.5-5.0) g/dL Arterial Blood Potassium (3.4-4.5) mmol/L Arterial Blood Glucose (75-99) mg/dL Crossmatch 08/02/17 08/02/17 08/02/17 Range/Units 18:00 19:05 20:10 WBC (3.8-10.6) k/uL RBC (4.30-5.90) m/uL Hgb (13.0-17.5) gm/dL Hct (39.0-53.0) % Plt Count (150-450) k/uL Neutrophils # (1.3-7.7) k/uL Lymphocytes # (1.0-4.8) k/uL Monocytes # (0-1.0) k/uL ABG pH (7.35-7.45) ABG pCO2 (35-45) mmHg ABG pO2 112 H (83-108) mmHg ABG HCO3 (21-25) mmol/L ABG Total CO2 27 H (19-24) mmol/L ABG O2 Saturation 99.0 H (94-97) % ABG Hematocrit (34.0-46.0) % ABG Potassium (3.4-4.5) mmol/L ABG Ionized Calcium (4.5-5.3) mg/dL ABG Glucose (75-99) mg/dL Hemoglobin (13.0-17.5) gm/dL Potassium (3.5-5.1) mmol/L Chloride (98-107) mmol/L BUN (9-20) mg/dL Glucose (74-99) mg/dL POC Glucose (mg/dL) 180 H 166 H (75-99) mg/dL Calcium (8.4-10.2) mg/dL AST (17-59) U/L ALT (21-72) U/L Total Protein (6.3-8.2) g/dL Albumin (3.5-5.0) g/dL Arterial Blood Potassium (3.4-4.5) mmol/L Arterial Blood Glucose (75-99) mg/dL Crossmatch 08/02/17 08/02/17 08/02/17 Range/Units 20:12 21:10 21:21 WBC (3.8-10.6) k/uL RBC (4.30-5.90) m/uL Hgb (13.0-17.5) gm/dL Hct (39.0-53.0) % Plt Count (150-450) k/uL Neutrophils # (1.3-7.7) k/uL Lymphocytes # (1.0-4.8) k/uL Monocytes # (0-1.0) k/uL ABG pH (7.35-7.45) ABG pCO2 (35-45) mmHg ABG pO2 (83-108) mmHg ABG HCO3 (21-25) mmol/L ABG Total CO2 (19-24) mmol/L ABG O2 Saturation (94-97) % ABG Hematocrit (34.0-46.0) % ABG Potassium (3.4-4.5) mmol/L ABG Ionized Calcium (4.5-5.3) mg/dL ABG Glucose (75-99) mg/dL Hemoglobin (13.0-17.5) gm/dL Potassium (3.5-5.1) mmol/L Chloride (98-107) mmol/L BUN 21 H (9-20) mg/dL Glucose 155 H (74-99) mg/dL POC Glucose (mg/dL) 154 H 157 H (75-99) mg/dL Calcium (8.4-10.2) mg/dL AST (17-59) U/L ALT (21-72) U/L Total Protein (6.3-8.2) g/dL Albumin (3.5-5.0) g/dL Arterial Blood Potassium (3.4-4.5) mmol/L Arterial Blood Glucose (75-99) mg/dL Crossmatch 08/02/17 08/02/17 08/02/17 Range/Units 21:21 22:00 22:57 WBC 12.2 H (3.8-10.6) k/uL RBC 3.57 L (4.30-5.90) m/uL Hgb 11.2 L (13.0-17.5) gm/dL Hct 34.1 L (39.0-53.0) % Plt Count 109 L (150-450) k/uL Neutrophils # 10.6 H (1.3-7.7) k/uL Lymphocytes # 0.4 L (1.0-4.8) k/uL Monocytes # 1.1 H (0-1.0) k/uL ABG pH (7.35-7.45) ABG pCO2 (35-45) mmHg ABG pO2 (83-108) mmHg ABG HCO3 (21-25) mmol/L ABG Total CO2 (19-24) mmol/L ABG O2 Saturation (94-97) % ABG Hematocrit (34.0-46.0) % ABG Potassium (3.4-4.5) mmol/L ABG Ionized Calcium (4.5-5.3) mg/dL ABG Glucose (75-99) mg/dL Hemoglobin (13.0-17.5) gm/dL Potassium (3.5-5.1) mmol/L Chloride (98-107) mmol/L BUN (9-20) mg/dL Glucose (74-99) mg/dL POC Glucose (mg/dL) 174 H 192 H (75-99) mg/dL Calcium (8.4-10.2) mg/dL AST (17-59) U/L ALT (21-72) U/L Total Protein (6.3-8.2) g/dL Albumin (3.5-5.0) g/dL Arterial Blood Potassium (3.4-4.5) mmol/L Arterial Blood Glucose (75-99) mg/dL Crossmatch 08/02/17 08/03/17 08/03/17 Range/Units 23:55 01:04 02:11 WBC (3.8-10.6) k/uL RBC (4.30-5.90) m/uL Hgb (13.0-17.5) gm/dL Hct (39.0-53.0) % Plt Count (150-450) k/uL Neutrophils # (1.3-7.7) k/uL Lymphocytes # (1.0-4.8) k/uL Monocytes # (0-1.0) k/uL ABG pH (7.35-7.45) ABG pCO2 (35-45) mmHg ABG pO2 (83-108) mmHg ABG HCO3 (21-25) mmol/L ABG Total CO2 (19-24) mmol/L ABG O2 Saturation (94-97) % ABG Hematocrit (34.0-46.0) % ABG Potassium (3.4-4.5) mmol/L ABG Ionized Calcium (4.5-5.3) mg/dL ABG Glucose (75-99) mg/dL Hemoglobin (13.0-17.5) gm/dL Potassium (3.5-5.1) mmol/L Chloride (98-107) mmol/L BUN (9-20) mg/dL Glucose (74-99) mg/dL POC Glucose (mg/dL) 207 H 191 H 169 H (75-99) mg/dL Calcium (8.4-10.2) mg/dL AST (17-59) U/L ALT (21-72) U/L Total Protein (6.3-8.2) g/dL Albumin (3.5-5.0) g/dL Arterial Blood Potassium (3.4-4.5) mmol/L Arterial Blood Glucose (75-99) mg/dL Crossmatch 08/03/17 08/03/17 08/03/17 Range/Units 03:07 03:35 03:35 WBC 12.0 H (3.8-10.6) k/uL RBC 3.49 L (4.30-5.90) m/uL Hgb 11.4 L (13.0-17.5) gm/dL Hct 32.8 L (39.0-53.0) % Plt Count 109 L (150-450) k/uL Neutrophils # 9.6 H (1.3-7.7) k/uL Lymphocytes # 0.9 L (1.0-4.8) k/uL Monocytes # 1.1 H (0-1.0) k/uL ABG pH (7.35-7.45) ABG pCO2 (35-45) mmHg ABG pO2 (83-108) mmHg ABG HCO3 (21-25) mmol/L ABG Total CO2 (19-24) mmol/L ABG O2 Saturation (94-97) % ABG Hematocrit (34.0-46.0) % ABG Potassium (3.4-4.5) mmol/L ABG Ionized Calcium (4.5-5.3) mg/dL ABG Glucose (75-99) mg/dL Hemoglobin (13.0-17.5) gm/dL Potassium (3.5-5.1) mmol/L Chloride (98-107) mmol/L BUN 21 H (9-20) mg/dL Glucose 134 H (74-99) mg/dL POC Glucose (mg/dL) 142 H (75-99) mg/dL Calcium (8.4-10.2) mg/dL AST 89 H (17-59) U/L ALT 73 H (21-72) U/L Total Protein 5.2 L (6.3-8.2) g/dL Albumin 3.1 L (3.5-5.0) g/dL Arterial Blood Potassium (3.4-4.5) mmol/L Arterial Blood Glucose (75-99) mg/dL Crossmatch 08/03/17 08/03/17 08/03/17 Range/Units 03:57 05:48 06:23 WBC (3.8-10.6) k/uL RBC (4.30-5.90) m/uL Hgb (13.0-17.5) gm/dL Hct (39.0-53.0) % Plt Count (150-450) k/uL Neutrophils # (1.3-7.7) k/uL Lymphocytes # (1.0-4.8) k/uL Monocytes # (0-1.0) k/uL ABG pH (7.35-7.45) ABG pCO2 (35-45) mmHg ABG pO2 (83-108) mmHg ABG HCO3 (21-25) mmol/L ABG Total CO2 (19-24) mmol/L ABG O2 Saturation (94-97) % ABG Hematocrit (34.0-46.0) % ABG Potassium (3.4-4.5) mmol/L ABG Ionized Calcium (4.5-5.3) mg/dL ABG Glucose (75-99) mg/dL Hemoglobin (13.0-17.5) gm/dL Potassium (3.5-5.1) mmol/L Chloride (98-107) mmol/L BUN (9-20) mg/dL Glucose (74-99) mg/dL POC Glucose (mg/dL) 143 H 155 H 149 H (75-99) mg/dL Calcium (8.4-10.2) mg/dL AST (17-59) U/L ALT (21-72) U/L Total Protein (6.3-8.2) g/dL Albumin (3.5-5.0) g/dL Arterial Blood Potassium (3.4-4.5) mmol/L Arterial Blood Glucose (75-99) mg/dL Crossmatch 08/03/17 08/03/17 08/03/17 Range/Units 06:59 08:06 09:10 WBC (3.8-10.6) k/uL RBC (4.30-5.90) m/uL Hgb (13.0-17.5) gm/dL Hct (39.0-53.0) % Plt Count (150-450) k/uL Neutrophils # (1.3-7.7) k/uL Lymphocytes # (1.0-4.8) k/uL Monocytes # (0-1.0) k/uL ABG pH (7.35-7.45) ABG pCO2 (35-45) mmHg ABG pO2 (83-108) mmHg ABG HCO3 (21-25) mmol/L ABG Total CO2 (19-24) mmol/L ABG O2 Saturation (94-97) % ABG Hematocrit (34.0-46.0) % ABG Potassium (3.4-4.5) mmol/L ABG Ionized Calcium (4.5-5.3) mg/dL ABG Glucose (75-99) mg/dL Hemoglobin (13.0-17.5) gm/dL Potassium (3.5-5.1) mmol/L Chloride (98-107) mmol/L BUN (9-20) mg/dL Glucose (74-99) mg/dL POC Glucose (mg/dL) 135 H 187 H 221 H (75-99) mg/dL Calcium (8.4-10.2) mg/dL AST (17-59) U/L ALT (21-72) U/L Total Protein (6.3-8.2) g/dL Albumin (3.5-5.0) g/dL Arterial Blood Potassium (3.4-4.5) mmol/L Arterial Blood Glucose (75-99) mg/dL Crossmatch 08/03/17 08/03/17 Range/Units 10:09 11:16 WBC (3.8-10.6) k/uL RBC (4.30-5.90) m/uL Hgb (13.0-17.5) gm/dL Hct (39.0-53.0) % Plt Count (150-450) k/uL Neutrophils # (1.3-7.7) k/uL Lymphocytes # (1.0-4.8) k/uL Monocytes # (0-1.0) k/uL ABG pH (7.35-7.45) ABG pCO2 (35-45) mmHg ABG pO2 (83-108) mmHg ABG HCO3 (21-25) mmol/L ABG Total CO2 (19-24) mmol/L ABG O2 Saturation (94-97) % ABG Hematocrit (34.0-46.0) % ABG Potassium (3.4-4.5) mmol/L ABG Ionized Calcium (4.5-5.3) mg/dL ABG Glucose (75-99) mg/dL Hemoglobin (13.0-17.5) gm/dL Potassium (3.5-5.1) mmol/L Chloride (98-107) mmol/L BUN (9-20) mg/dL Glucose (74-99) mg/dL POC Glucose (mg/dL) 180 H 150 H (75-99) mg/dL Calcium (8.4-10.2) mg/dL AST (17-59) U/L ALT (21-72) U/L Total Protein (6.3-8.2) g/dL Albumin (3.5-5.0) g/dL Arterial Blood Potassium (3.4-4.5) mmol/L Arterial Blood Glucose (75-99) mg/dL Crossmatch Assessment and Plan Plan: Assessment: #1. Symptomatic coronary artery disease, status post artery artery bypass grafting, 3 with OMALLEY to LAD, SVG to the Susan, and SVG to the posterior branch of the RCA, postop day 1. The patient was extubated within 6 hours of arrival to the intensive care unit. This morning the patient is on oxygen on nasal cannula without any major respiratory difficulties. No significant chest wall pain. Hemodynamically stable. Chest tubes are still in place.. The patient is still on a low-dose Nitrol nitroglycerin drip for blood pressure control. #2. History of coronary artery disease, with prior stenting of the circumflex artery and prior history of myocardial infarction #3. Diabetes mellitus type 2, still on insulin drip for blood sugar control #4. Nicotine dependence, ongoing #5. Daily alcohol intake, patient drinks around a pint of Rum a day #6. Hyperlipidemia, hypertension #7. GERD/reflux #8. Chronic lumbar pain #9. Osteoarthritis #10. History of nephrolithiasis Plan Monitor the output from the chest tubes. Wean off nitroglycerin drip and discontinue. Continue with metoprolol for blood pressure, continue aspirin and Plavix, continue statins, continue encouraging to use this incentive spirometer. Watch for any signs of delirium tremens nontender the patient has been a heavy alcohol drinker. Repeat chest x-ray in the morning. Keep the patient in ICU for today. We'll continue to follow along with the surgical team.
--- NOTE | 2017-08-03 12:18 | P.PN ---
Subjective 47-year-old gentleman admitted with chest pain, possible acute non-STEMI with known history of CAD, IL, and multiple other medical issues. Evaluated by cardiology. Underwent cardiac catheterization this morning, reporting triple vessel disease: 60-70% stenosis of LAD involving ostial portion, 95% in the proximal RCA, 60% stenosis just prior to bifurcation into the PDA and PLV. Cardiothoracic surgery and pulmonary consulted. Carotid Doppler reporting thick neck with no significant velocity elevations. LFTs improving. Denies chest pain, palpitations or increased shortness of breath. 07/30/2017 developed hematoma at right groin site of cardiac cath., during the night. Ultrasound reporting pseudoaneurysm, status post injection with complete thrombosis as per IR. Denies abdominal pain. Evaluated by cardiothoracic surgery, scheduled for CABG on Wednesday. Denies chest pain, palpitations or increasing shortness of breath. Blood sugars remain elevated in the 200s. 07/31/2017 No overnight events 08/01/2017 No chest pain no significant overnight events 08/03/2079 Patient is status post ABG postoperative day one patient has a left right chest tubes along with mediastinal chest tube. Patient's [place] is out patient is comparing of pain in the chest beyond that no other issues patient is on IV insulin which we'll try to switch to Lantus and aspart regimen Objective - Vital Signs Vital signs: Vital Signs Temp 98.2 F 08/02/17 06:12 Pulse 88 08/03/17 11:15 Resp 24 08/03/17 11:31 BP 107/61 08/03/17 11:00 Pulse Ox 100 08/03/17 11:00 Intake & Output 08/02/17 08/03/17 08/03/17 18:59 06:59 18:59 Intake Total 820.967 2095.955 1186.762 Output Total 3030 1616 465 Balance -2610.387 -457.045 721.762 Weight 121.1 kg 121.1 kg Intake: IV 323 802 289 Cardiac Output 60 130 20 LR 200 600 230 pressure bags 30 72 39 Intake, IV Titration 96.613 206.955 37.762 Amount Clevidipine Butyrate 25 23.201 157.867 3.733 mg In Empty Bag 1 bag @ 1 MG/HR 2 mls/hr IV .Q24H [facility] Rx#:[id number] Insulin Regular 100 unit 12.356 44.591 34.029 In Sodium Chloride 0.9% 100 ml @ Per Protocol IV .Q0M [facility] Rx#:[id number] Propofol 1,000 mg In 61.056 4.497 Empty Bag 1 bag @ Titrate IV .Q0M [facility] Rx#: [id number] Oral 150 860 Output: Chest Tube Drainage 130 331 110 Bilateral Mediastinal 90 206 70 Left Pleural 40 125 40 Urine 1100 1285 355 Estimated Blood Loss 1800 Other: Voiding Method Indwelling Catheter Indwelling Catheter Indwelling Catheter # Voids 1 ABP, PAP, CO, CI - Last Documented Arterial Blood Pressure 142/80 Pulmonary Artery Pressure 28/17 Cardiac Output 6.5 Cardiac Index 2.8 - Exam GENERAL: Sitting up in bed, no acute distress, bilateral chest use and the Weinberg catheter in place HEENT: Conjunctivae normal. eyes normal. Oral mucosa moist NECK: No JVD. No thyroid enlargement. No LNs CARDIOVASCULAR: Regular S1, S2. No murmur RESPIRATION: Breath sounds diminished in the bases. no rhonchi, no crackles. No wheezing ABDOMEN: Soft, nontender . No guarding. no masses palpable. Bowel sounds heard. LEGS: No edema. no swelling PSYCHIATRY: Alert and oriented -3, mood and affect normal. NERVOUS SYSTEM: Cranial N 2-12 grossly normal. Moves all 4 limbs. Diffuse weakness No focal deficits. Skin: Right groin puncture site hematoma, large ecchymosis - Labs CBC & Chem 7: 08/03/17 03:35 08/03/17 03:35 Labs: Abnormal Lab Results - Last 24 Hours (Table) 08/01/17 08/02/17 08/02/17 Range/Units 06:25 12:23 14:06 WBC (3.8-10.6) k/uL RBC (4.30-5.90) m/uL Hgb (13.0-17.5) gm/dL Hct (39.0-53.0) % Plt Count (150-450) k/uL Neutrophils # (1.3-7.7) k/uL Lymphocytes # (1.0-4.8) k/uL Monocytes # (0-1.0) k/uL ABG pH 7.33 L (7.35-7.45) ABG pCO2 49 H (35-45) mmHg ABG pO2 327 H 81 L (83-108) mmHg ABG HCO3 26 H 26 H (21-25) mmol/L ABG Total CO2 27 H 27 H (19-24) mmol/L ABG O2 Saturation 100.0 H (94-97) % ABG Hematocrit 26 L (34.0-46.0) % ABG Potassium 6.0 H 5.3 H (3.4-4.5) mmol/L ABG Ionized Calcium 4.4 L (4.5-5.3) mg/dL ABG Glucose 248 H 194 H (75-99) mg/dL Hemoglobin 8.3 L 11.1 L (13.0-17.5) gm/dL Potassium (3.5-5.1) mmol/L Chloride (98-107) mmol/L BUN (9-20) mg/dL Glucose (74-99) mg/dL POC Glucose (mg/dL) (75-99) mg/dL Calcium (8.4-10.2) mg/dL AST (17-59) U/L ALT (21-72) U/L Total Protein (6.3-8.2) g/dL Albumin (3.5-5.0) g/dL Arterial Blood Potassium 6.0 H 5.3 H (3.4-4.5) mmol/L Arterial Blood Glucose 248 H 194 H (75-99) mg/dL Crossmatch See Detail 08/02/17 08/02/17 08/02/17 Range/Units 14:52 14:52 14:52 WBC (3.8-10.6) k/uL RBC 3.41 L (4.30-5.90) m/uL Hgb 10.6 L D (13.0-17.5) gm/dL Hct 32.7 L (39.0-53.0) % Plt Count 88 L (150-450) k/uL Neutrophils # (1.3-7.7) k/uL Lymphocytes # 0.6 L (1.0-4.8) k/uL Monocytes # (0-1.0) k/uL ABG pH (7.35-7.45) ABG pCO2 (35-45) mmHg ABG pO2 (83-108) mmHg ABG HCO3 (21-25) mmol/L ABG Total CO2 (19-24) mmol/L ABG O2 Saturation (94-97) % ABG Hematocrit (34.0-46.0) % ABG Potassium (3.4-4.5) mmol/L ABG Ionized Calcium (4.5-5.3) mg/dL ABG Glucose (75-99) mg/dL Hemoglobin (13.0-17.5) gm/dL Potassium 5.6 H (3.5-5.1) mmol/L Chloride 108 H (98-107) mmol/L BUN 21 H (9-20) mg/dL Glucose 176 H (74-99) mg/dL POC Glucose (mg/dL) 210 H (75-99) mg/dL Calcium 7.7 L (8.4-10.2) mg/dL AST (17-59) U/L ALT 77 H (21-72) U/L Total Protein 4.6 L (6.3-8.2) g/dL Albumin 2.7 L (3.5-5.0) g/dL Arterial Blood Potassium (3.4-4.5) mmol/L Arterial Blood Glucose (75-99) mg/dL Crossmatch 08/02/17 08/02/17 08/02/17 Range/Units 15:22 15:23 16:17 WBC (3.8-10.6) k/uL RBC (4.30-5.90) m/uL Hgb (13.0-17.5) gm/dL Hct (39.0-53.0) % Plt Count (150-450) k/uL Neutrophils # (1.3-7.7) k/uL Lymphocytes # (1.0-4.8) k/uL Monocytes # (0-1.0) k/uL ABG pH (7.35-7.45) ABG pCO2 (35-45) mmHg ABG pO2 (83-108) mmHg ABG HCO3 (21-25) mmol/L ABG Total CO2 26 H (19-24) mmol/L ABG O2 Saturation 97.5 H (94-97) % ABG Hematocrit (34.0-46.0) % ABG Potassium (3.4-4.5) mmol/L ABG Ionized Calcium (4.5-5.3) mg/dL ABG Glucose (75-99) mg/dL Hemoglobin (13.0-17.5) gm/dL Potassium (3.5-5.1) mmol/L Chloride (98-107) mmol/L BUN (9-20) mg/dL Glucose (74-99) mg/dL POC Glucose (mg/dL) 188 H 210 H (75-99) mg/dL Calcium (8.4-10.2) mg/dL AST (17-59) U/L ALT (21-72) U/L Total Protein (6.3-8.2) g/dL Albumin (3.5-5.0) g/dL Arterial Blood Potassium (3.4-4.5) mmol/L Arterial Blood Glucose (75-99) mg/dL Crossmatch 08/02/17 08/02/17 08/02/17 Range/Units 17:01 18:00 18:00 WBC (3.8-10.6) k/uL RBC 3.27 L (4.30-5.90) m/uL Hgb 10.2 L (13.0-17.5) gm/dL Hct 30.9 L (39.0-53.0) % Plt Count 99 L (150-450) k/uL Neutrophils # 8.1 H (1.3-7.7) k/uL Lymphocytes # 0.5 L (1.0-4.8) k/uL Monocytes # (0-1.0) k/uL ABG pH (7.35-7.45) ABG pCO2 (35-45) mmHg ABG pO2 (83-108) mmHg ABG HCO3 (21-25) mmol/L ABG Total CO2 (19-24) mmol/L ABG O2 Saturation (94-97) % ABG Hematocrit (34.0-46.0) % ABG Potassium (3.4-4.5) mmol/L ABG Ionized Calcium (4.5-5.3) mg/dL ABG Glucose (75-99) mg/dL Hemoglobin (13.0-17.5) gm/dL Potassium (3.5-5.1) mmol/L Chloride (98-107) mmol/L BUN 22 H (9-20) mg/dL Glucose 169 H (74-99) mg/dL POC Glucose (mg/dL) 178 H (75-99) mg/dL Calcium 8.3 L (8.4-10.2) mg/dL AST (17-59) U/L ALT 73 H (21-72) U/L Total Protein 4.5 L (6.3-8.2) g/dL Albumin 2.8 L (3.5-5.0) g/dL Arterial Blood Potassium (3.4-4.5) mmol/L Arterial Blood Glucose (75-99) mg/dL Crossmatch 08/02/17 08/02/17 08/02/17 Range/Units 18:00 19:05 20:10 WBC (3.8-10.6) k/uL RBC (4.30-5.90) m/uL Hgb (13.0-17.5) gm/dL Hct (39.0-53.0) % Plt Count (150-450) k/uL Neutrophils # (1.3-7.7) k/uL Lymphocytes # (1.0-4.8) k/uL Monocytes # (0-1.0) k/uL ABG pH (7.35-7.45) ABG pCO2 (35-45) mmHg ABG pO2 112 H (83-108) mmHg ABG HCO3 (21-25) mmol/L ABG Total CO2 27 H (19-24) mmol/L ABG O2 Saturation 99.0 H (94-97) % ABG Hematocrit (34.0-46.0) % ABG Potassium (3.4-4.5) mmol/L ABG Ionized Calcium (4.5-5.3) mg/dL ABG Glucose (75-99) mg/dL Hemoglobin (13.0-17.5) gm/dL Potassium (3.5-5.1) mmol/L Chloride (98-107) mmol/L BUN (9-20) mg/dL Glucose (74-99) mg/dL POC Glucose (mg/dL) 180 H 166 H (75-99) mg/dL Calcium (8.4-10.2) mg/dL AST (17-59) U/L ALT (21-72) U/L Total Protein (6.3-8.2) g/dL Albumin (3.5-5.0) g/dL Arterial Blood Potassium (3.4-4.5) mmol/L Arterial Blood Glucose (75-99) mg/dL Crossmatch 08/02/17 08/02/17 08/02/17 Range/Units 20:12 21:10 21:21 WBC (3.8-10.6) k/uL RBC (4.30-5.90) m/uL Hgb (13.0-17.5) gm/dL Hct (39.0-53.0) % Plt Count (150-450) k/uL Neutrophils # (1.3-7.7) k/uL Lymphocytes # (1.0-4.8) k/uL Monocytes # (0-1.0) k/uL ABG pH (7.35-7.45) ABG pCO2 (35-45) mmHg ABG pO2 (83-108) mmHg ABG HCO3 (21-25) mmol/L ABG Total CO2 (19-24) mmol/L ABG O2 Saturation (94-97) % ABG Hematocrit (34.0-46.0) % ABG Potassium (3.4-4.5) mmol/L ABG Ionized Calcium (4.5-5.3) mg/dL ABG Glucose (75-99) mg/dL Hemoglobin (13.0-17.5) gm/dL Potassium (3.5-5.1) mmol/L Chloride (98-107) mmol/L BUN 21 H (9-20) mg/dL Glucose 155 H (74-99) mg/dL POC Glucose (mg/dL) 154 H 157 H (75-99) mg/dL Calcium (8.4-10.2) mg/dL AST (17-59) U/L ALT (21-72) U/L Total Protein (6.3-8.2) g/dL Albumin (3.5-5.0) g/dL Arterial Blood Potassium (3.4-4.5) mmol/L Arterial Blood Glucose (75-99) mg/dL Crossmatch 08/02/17 08/02/17 08/02/17 Range/Units 21:21 22:00 22:57 WBC 12.2 H (3.8-10.6) k/uL RBC 3.57 L (4.30-5.90) m/uL Hgb 11.2 L (13.0-17.5) gm/dL Hct 34.1 L (39.0-53.0) % Plt Count 109 L (150-450) k/uL Neutrophils # 10.6 H (1.3-7.7) k/uL Lymphocytes # 0.4 L (1.0-4.8) k/uL Monocytes # 1.1 H (0-1.0) k/uL ABG pH (7.35-7.45) ABG pCO2 (35-45) mmHg ABG pO2 (83-108) mmHg ABG HCO3 (21-25) mmol/L ABG Total CO2 (19-24) mmol/L ABG O2 Saturation (94-97) % ABG Hematocrit (34.0-46.0) % ABG Potassium (3.4-4.5) mmol/L ABG Ionized Calcium (4.5-5.3) mg/dL ABG Glucose (75-99) mg/dL Hemoglobin (13.0-17.5) gm/dL Potassium (3.5-5.1) mmol/L Chloride (98-107) mmol/L BUN (9-20) mg/dL Glucose (74-99) mg/dL POC Glucose (mg/dL) 174 H 192 H (75-99) mg/dL Calcium (8.4-10.2) mg/dL AST (17-59) U/L ALT (21-72) U/L Total Protein (6.3-8.2) g/dL Albumin (3.5-5.0) g/dL Arterial Blood Potassium (3.4-4.5) mmol/L Arterial Blood Glucose (75-99) mg/dL Crossmatch 08/02/17 08/03/17 08/03/17 Range/Units 23:55 01:04 02:11 WBC (3.8-10.6) k/uL RBC (4.30-5.90) m/uL Hgb (13.0-17.5) gm/dL Hct (39.0-53.0) % Plt Count (150-450) k/uL Neutrophils # (1.3-7.7) k/uL Lymphocytes # (1.0-4.8) k/uL Monocytes # (0-1.0) k/uL ABG pH (7.35-7.45) ABG pCO2 (35-45) mmHg ABG pO2 (83-108) mmHg ABG HCO3 (21-25) mmol/L ABG Total CO2 (19-24) mmol/L ABG O2 Saturation (94-97) % ABG Hematocrit (34.0-46.0) % ABG Potassium (3.4-4.5) mmol/L ABG Ionized Calcium (4.5-5.3) mg/dL ABG Glucose (75-99) mg/dL Hemoglobin (13.0-17.5) gm/dL Potassium (3.5-5.1) mmol/L Chloride (98-107) mmol/L BUN (9-20) mg/dL Glucose (74-99) mg/dL POC Glucose (mg/dL) 207 H 191 H 169 H (75-99) mg/dL Calcium (8.4-10.2) mg/dL AST (17-59) U/L ALT (21-72) U/L Total Protein (6.3-8.2) g/dL Albumin (3.5-5.0) g/dL Arterial Blood Potassium (3.4-4.5) mmol/L Arterial Blood Glucose (75-99) mg/dL Crossmatch 08/03/17 08/03/17 08/03/17 Range/Units 03:07 03:35 03:35 WBC 12.0 H (3.8-10.6) k/uL RBC 3.49 L (4.30-5.90) m/uL Hgb 11.4 L (13.0-17.5) gm/dL Hct 32.8 L (39.0-53.0) % Plt Count 109 L (150-450) k/uL Neutrophils # 9.6 H (1.3-7.7) k/uL Lymphocytes # 0.9 L (1.0-4.8) k/uL Monocytes # 1.1 H (0-1.0) k/uL ABG pH (7.35-7.45) ABG pCO2 (35-45) mmHg ABG pO2 (83-108) mmHg ABG HCO3 (21-25) mmol/L ABG Total CO2 (19-24) mmol/L ABG O2 Saturation (94-97) % ABG Hematocrit (34.0-46.0) % ABG Potassium (3.4-4.5) mmol/L ABG Ionized Calcium (4.5-5.3) mg/dL ABG Glucose (75-99) mg/dL Hemoglobin (13.0-17.5) gm/dL Potassium (3.5-5.1) mmol/L Chloride (98-107) mmol/L BUN 21 H (9-20) mg/dL Glucose 134 H (74-99) mg/dL POC Glucose (mg/dL) 142 H (75-99) mg/dL Calcium (8.4-10.2) mg/dL AST 89 H (17-59) U/L ALT 73 H (21-72) U/L Total Protein 5.2 L (6.3-8.2) g/dL Albumin 3.1 L (3.5-5.0) g/dL Arterial Blood Potassium (3.4-4.5) mmol/L Arterial Blood Glucose (75-99) mg/dL Crossmatch 08/03/17 08/03/17 08/03/17 Range/Units 03:57 05:48 06:23 WBC (3.8-10.6) k/uL RBC (4.30-5.90) m/uL Hgb (13.0-17.5) gm/dL Hct (39.0-53.0) % Plt Count (150-450) k/uL Neutrophils # (1.3-7.7) k/uL Lymphocytes # (1.0-4.8) k/uL Monocytes # (0-1.0) k/uL ABG pH (7.35-7.45) ABG pCO2 (35-45) mmHg ABG pO2 (83-108) mmHg ABG HCO3 (21-25) mmol/L ABG Total CO2 (19-24) mmol/L ABG O2 Saturation (94-97) % ABG Hematocrit (34.0-46.0) % ABG Potassium (3.4-4.5) mmol/L ABG Ionized Calcium (4.5-5.3) mg/dL ABG Glucose (75-99) mg/dL Hemoglobin (13.0-17.5) gm/dL Potassium (3.5-5.1) mmol/L Chloride (98-107) mmol/L BUN (9-20) mg/dL Glucose (74-99) mg/dL POC Glucose (mg/dL) 143 H 155 H 149 H (75-99) mg/dL Calcium (8.4-10.2) mg/dL AST (17-59) U/L ALT (21-72) U/L Total Protein (6.3-8.2) g/dL Albumin (3.5-5.0) g/dL Arterial Blood Potassium (3.4-4.5) mmol/L Arterial Blood Glucose (75-99) mg/dL Crossmatch 08/03/17 08/03/17 08/03/17 Range/Units 06:59 08:06 09:10 WBC (3.8-10.6) k/uL RBC (4.30-5.90) m/uL Hgb (13.0-17.5) gm/dL Hct (39.0-53.0) % Plt Count (150-450) k/uL Neutrophils # (1.3-7.7) k/uL Lymphocytes # (1.0-4.8) k/uL Monocytes # (0-1.0) k/uL ABG pH (7.35-7.45) ABG pCO2 (35-45) mmHg ABG pO2 (83-108) mmHg ABG HCO3 (21-25) mmol/L ABG Total CO2 (19-24) mmol/L ABG O2 Saturation (94-97) % ABG Hematocrit (34.0-46.0) % ABG Potassium (3.4-4.5) mmol/L ABG Ionized Calcium (4.5-5.3) mg/dL ABG Glucose (75-99) mg/dL Hemoglobin (13.0-17.5) gm/dL Potassium (3.5-5.1) mmol/L Chloride (98-107) mmol/L BUN (9-20) mg/dL Glucose (74-99) mg/dL POC Glucose (mg/dL) 135 H 187 H 221 H (75-99) mg/dL Calcium (8.4-10.2) mg/dL AST (17-59) U/L ALT (21-72) U/L Total Protein (6.3-8.2) g/dL Albumin (3.5-5.0) g/dL Arterial Blood Potassium (3.4-4.5) mmol/L Arterial Blood Glucose (75-99) mg/dL Crossmatch 08/03/17 08/03/17 Range/Units 10:09 11:16 WBC (3.8-10.6) k/uL RBC (4.30-5.90) m/uL Hgb (13.0-17.5) gm/dL Hct (39.0-53.0) % Plt Count (150-450) k/uL Neutrophils # (1.3-7.7) k/uL Lymphocytes # (1.0-4.8) k/uL Monocytes # (0-1.0) k/uL ABG pH (7.35-7.45) ABG pCO2 (35-45) mmHg ABG pO2 (83-108) mmHg ABG HCO3 (21-25) mmol/L ABG Total CO2 (19-24) mmol/L ABG O2 Saturation (94-97) % ABG Hematocrit (34.0-46.0) % ABG Potassium (3.4-4.5) mmol/L ABG Ionized Calcium (4.5-5.3) mg/dL ABG Glucose (75-99) mg/dL Hemoglobin (13.0-17.5) gm/dL Potassium (3.5-5.1) mmol/L Chloride (98-107) mmol/L BUN (9-20) mg/dL Glucose (74-99) mg/dL POC Glucose (mg/dL) 180 H 150 H (75-99) mg/dL Calcium (8.4-10.2) mg/dL AST (17-59) U/L ALT (21-72) U/L Total Protein (6.3-8.2) g/dL Albumin (3.5-5.0) g/dL Arterial Blood Potassium (3.4-4.5) mmol/L Arterial Blood Glucose (75-99) mg/dL Crossmatch Assessment and Plan Plan: 1. Chest pain, possible acute non-STEMI, status patient is status post CABG 2. Diabetes mellitus: Patient will be resumed on above-mentioned regimen 3. CAD with history of IL and stent 4. Diabetes mellitus type 2, hemoglobin A1c 9.6 5. Gastroesophageal reflux disease 6. Hyperlipidemia 7. Alcohol abuse 8. Ongoing nicotine abuse 9. Pseudoaneurysm
[2017-08-03 12:37] LABS: Glucose,Whole Blood 148 mg/dL (75-99)
--- NOTE | 2017-08-03 13:12 | P.PN ---
Subjective Progress Note Date: 08/03/17 Principal diagnosis: Symptomatic multivessel coronary artery disease, history of known coronary artery disease with post prior stenting to his right coronary artery and circumflex coronary artery, obesity, diabetes mellitus type 2, hypertension, hyperlipidemia, myocardial infarction this admission troponins as high as 0.044 , history of nephrolithiasis, osteoarthritis, history of pneumonia, current nicotine dependence, chronic lumbar back pain and GERD. POD #1 urgent coronary artery bypass grafting 3 vessels with placement of his left internal mammary artery to his left anterior ascending coronary artery, a reverse greater saphenous vein graft to his diagonal coronary artery, reverse greater saphenous vein graft to his posterior lateral branch of his right coronary artery. Endoscopic vein harvest of his left greater saphenous vein, intraoperative epi-aortic ultrasound and transesophageal echocardiogram. Patient is sitting up to the bedside chair. He is in no acute distress. He he denies any complaints of pain at this time, although he states when he moves around or coughs his pain is 10 out of 10 on the pain scale. His heart hugger is in place and he is demonstrating appropriate use. He was successfully extubated at 8:24 PM last night. He is currently on 5 L nasal cannula oxygen saturations 99%. He is alert and oriented 3. Objective - Vital Signs Vital signs: Vital Signs Temp 98.2 F 08/02/17 06:12 Pulse 79 08/03/17 12:30 Resp 25 H 08/03/17 12:30 BP 107/61 08/03/17 11:00 Pulse Ox 92 L 08/03/17 12:30 Intake & Output 08/02/17 08/03/17 08/03/17 18:59 06:59 18:59 Intake Total 025.953 7972.955 1322.762 Output Total 3030 1616 495 Balance -2610.387 -457.045 827.762 Weight 121.1 kg 121.1 kg Intake: IV 323 802 325 Cardiac Output 60 130 20 LR 200 600 260 pressure bags 30 72 45 Intake, IV Titration 96.613 206.955 137.762 Amount ACETAMINOPHEN IV (For NPO 100 ) 1,000 mg In Empty Bag 1 bag @ 400 mls/hr IVPB Q6HR [facility] Rx#:[id number] Clevidipine Butyrate 25 23.201 157.867 3.733 mg In Empty Bag 1 bag @ 1 MG/HR 2 mls/hr IV .Q24H [facility] Rx#:[id number] Insulin Regular 100 unit 12.356 44.591 34.029 In Sodium Chloride 0.9% 100 ml @ Per Protocol IV .Q0M [facility] Rx#:[id number] Propofol 1,000 mg In 61.056 4.497 Empty Bag 1 bag @ Titrate IV .Q0M [facility] Rx#: [id number] Oral 150 860 Output: Chest Tube Drainage 130 331 110 Bilateral Mediastinal 90 206 70 Left Pleural 40 125 40 Urine 1100 1285 385 Estimated Blood Loss 1800 Other: Voiding Method Indwelling Catheter Indwelling Catheter Indwelling Catheter # Voids 1 ABP, PAP, CO, CI - Last Documented Arterial Blood Pressure 111/66 Pulmonary Artery Pressure 28/17 Cardiac Output 6.5 Cardiac Index 2.8 - Constitutional General appearance: Present: cooperative, no acute distress, obese - EENT ENT: Present: hearing grossly normal - Neck Details: No JVD, neck is supple, no lymphadenopathy. - Respiratory Details: Lungs sounds essentially clear throughout, few scattered crackles to his bilateral bases. Respirations are symmetrical and nonlabored. Oxygen saturation are 99% on 5 L nasal cannula. He is achieving 600 mL on his incentive spirometry. - Cardiovascular Details: Regular rhythm and rate. S1 and S2 present. Negative for S3, gallop or murmur. Sternum is stable. Bedside telemetry showing normal sinus rhythm heart rate 88. Heart hugger is in place and he is demonstrating appropriate use. Knee-high KATHERINE hose and sequential compression devices in place to his bilateral lower extremities. Atrial and ventricular epicardial pacemaker wires intact and to backup pacemaker generator VVI 50 BPM. No edema present. Right IJ cordis in place with Minong-Jt catheter patent and functioning. Current cardiac output 7.7, cardiac index 3.3, PA pressures 33/18, CVP 8. - Gastrointestinal Gastrointestinal Comment(s): Abdomen is soft, nontender and nondistended. Active bowel sounds all 4 abdominal quadrants. Tolerating oral intake. - Genitourinary Genitourinary Comment(s): Weinberg catheter for accurate I&O. Clear yellow urine. 910 mL output last 8 hours. - Integumentary Integumentary Comment(s): Skin is warm and dry. No clubbing or cyanosis present. Midline sternal incision clean dry and well approximated. Left leg EVH site clean dry and approximated. No drainage or redness present. - Neurologic Neurologic: Present: CNII-XII intact - Musculoskeletal Musculoskeletal: Present: gait normal, strength equal bilaterally - Psychiatric Psychiatric: Present: A&O x's 3, appropriate affect, intact judgment & insight - Allied health notes Allied health notes reviewed: nursing - Labs CBC & Chem 7: 08/03/17 03:35 08/03/17 03:35 Labs: Abnormal Lab Results - Last 24 Hours (Table) 08/01/17 08/02/17 08/02/17 Range/Units 06:25 12:23 14:06 WBC (3.8-10.6) k/uL RBC (4.30-5.90) m/uL Hgb (13.0-17.5) gm/dL Hct (39.0-53.0) % Plt Count (150-450) k/uL Neutrophils # (1.3-7.7) k/uL Lymphocytes # (1.0-4.8) k/uL Monocytes # (0-1.0) k/uL ABG pH 7.33 L (7.35-7.45) ABG pCO2 49 H (35-45) mmHg ABG pO2 327 H 81 L (83-108) mmHg ABG HCO3 26 H 26 H (21-25) mmol/L ABG Total CO2 27 H 27 H (19-24) mmol/L ABG O2 Saturation 100.0 H (94-97) % ABG Hematocrit 26 L (34.0-46.0) % ABG Potassium 6.0 H 5.3 H (3.4-4.5) mmol/L ABG Ionized Calcium 4.4 L (4.5-5.3) mg/dL ABG Glucose 248 H 194 H (75-99) mg/dL Hemoglobin 8.3 L 11.1 L (13.0-17.5) gm/dL Potassium (3.5-5.1) mmol/L Chloride (98-107) mmol/L BUN (9-20) mg/dL Glucose (74-99) mg/dL POC Glucose (mg/dL) (75-99) mg/dL Calcium (8.4-10.2) mg/dL AST (17-59) U/L ALT (21-72) U/L Total Protein (6.3-8.2) g/dL Albumin (3.5-5.0) g/dL Arterial Blood Potassium 6.0 H 5.3 H (3.4-4.5) mmol/L Arterial Blood Glucose 248 H 194 H (75-99) mg/dL Crossmatch See Detail 08/02/17 08/02/17 08/02/17 Range/Units 14:52 14:52 14:52 WBC (3.8-10.6) k/uL RBC 3.41 L (4.30-5.90) m/uL Hgb 10.6 L D (13.0-17.5) gm/dL Hct 32.7 L (39.0-53.0) % Plt Count 88 L (150-450) k/uL Neutrophils # (1.3-7.7) k/uL Lymphocytes # 0.6 L (1.0-4.8) k/uL Monocytes # (0-1.0) k/uL ABG pH (7.35-7.45) ABG pCO2 (35-45) mmHg ABG pO2 (83-108) mmHg ABG HCO3 (21-25) mmol/L ABG Total CO2 (19-24) mmol/L ABG O2 Saturation (94-97) % ABG Hematocrit (34.0-46.0) % ABG Potassium (3.4-4.5) mmol/L ABG Ionized Calcium (4.5-5.3) mg/dL ABG Glucose (75-99) mg/dL Hemoglobin (13.0-17.5) gm/dL Potassium 5.6 H (3.5-5.1) mmol/L Chloride 108 H (98-107) mmol/L BUN 21 H (9-20) mg/dL Glucose 176 H (74-99) mg/dL POC Glucose (mg/dL) 210 H (75-99) mg/dL Calcium 7.7 L (8.4-10.2) mg/dL AST (17-59) U/L ALT 77 H (21-72) U/L Total Protein 4.6 L (6.3-8.2) g/dL Albumin 2.7 L (3.5-5.0) g/dL Arterial Blood Potassium (3.4-4.5) mmol/L Arterial Blood Glucose (75-99) mg/dL Crossmatch 08/02/17 08/02/17 08/02/17 Range/Units 15:22 15:23 16:17 WBC (3.8-10.6) k/uL RBC (4.30-5.90) m/uL Hgb (13.0-17.5) gm/dL Hct (39.0-53.0) % Plt Count (150-450) k/uL Neutrophils # (1.3-7.7) k/uL Lymphocytes # (1.0-4.8) k/uL Monocytes # (0-1.0) k/uL ABG pH (7.35-7.45) ABG pCO2 (35-45) mmHg ABG pO2 (83-108) mmHg ABG HCO3 (21-25) mmol/L ABG Total CO2 26 H (19-24) mmol/L ABG O2 Saturation 97.5 H (94-97) % ABG Hematocrit (34.0-46.0) % ABG Potassium (3.4-4.5) mmol/L ABG Ionized Calcium (4.5-5.3) mg/dL ABG Glucose (75-99) mg/dL Hemoglobin (13.0-17.5) gm/dL Potassium (3.5-5.1) mmol/L Chloride (98-107) mmol/L BUN (9-20) mg/dL Glucose (74-99) mg/dL POC Glucose (mg/dL) 188 H 210 H (75-99) mg/dL Calcium (8.4-10.2) mg/dL AST (17-59) U/L ALT (21-72) U/L Total Protein (6.3-8.2) g/dL Albumin (3.5-5.0) g/dL Arterial Blood Potassium (3.4-4.5) mmol/L Arterial Blood Glucose (75-99) mg/dL Crossmatch 08/02/17 08/02/17 08/02/17 Range/Units 17:01 18:00 18:00 WBC (3.8-10.6) k/uL RBC 3.27 L (4.30-5.90) m/uL Hgb 10.2 L (13.0-17.5) gm/dL Hct 30.9 L (39.0-53.0) % Plt Count 99 L (150-450) k/uL Neutrophils # 8.1 H (1.3-7.7) k/uL Lymphocytes # 0.5 L (1.0-4.8) k/uL Monocytes # (0-1.0) k/uL ABG pH (7.35-7.45) ABG pCO2 (35-45) mmHg ABG pO2 (83-108) mmHg ABG HCO3 (21-25) mmol/L ABG Total CO2 (19-24) mmol/L ABG O2 Saturation (94-97) % ABG Hematocrit (34.0-46.0) % ABG Potassium (3.4-4.5) mmol/L ABG Ionized Calcium (4.5-5.3) mg/dL ABG Glucose (75-99) mg/dL Hemoglobin (13.0-17.5) gm/dL Potassium (3.5-5.1) mmol/L Chloride (98-107) mmol/L BUN 22 H (9-20) mg/dL Glucose 169 H (74-99) mg/dL POC Glucose (mg/dL) 178 H (75-99) mg/dL Calcium 8.3 L (8.4-10.2) mg/dL AST (17-59) U/L ALT 73 H (21-72) U/L Total Protein 4.5 L (6.3-8.2) g/dL Albumin 2.8 L (3.5-5.0) g/dL Arterial Blood Potassium (3.4-4.5) mmol/L Arterial Blood Glucose (75-99) mg/dL Crossmatch 08/02/17 08/02/17 08/02/17 Range/Units 18:00 19:05 20:10 WBC (3.8-10.6) k/uL RBC (4.30-5.90) m/uL Hgb (13.0-17.5) gm/dL Hct (39.0-53.0) % Plt Count (150-450) k/uL Neutrophils # (1.3-7.7) k/uL Lymphocytes # (1.0-4.8) k/uL Monocytes # (0-1.0) k/uL ABG pH (7.35-7.45) ABG pCO2 (35-45) mmHg ABG pO2 112 H (83-108) mmHg ABG HCO3 (21-25) mmol/L ABG Total CO2 27 H (19-24) mmol/L ABG O2 Saturation 99.0 H (94-97) % ABG Hematocrit (34.0-46.0) % ABG Potassium (3.4-4.5) mmol/L ABG Ionized Calcium (4.5-5.3) mg/dL ABG Glucose (75-99) mg/dL Hemoglobin (13.0-17.5) gm/dL Potassium (3.5-5.1) mmol/L Chloride (98-107) mmol/L BUN (9-20) mg/dL Glucose (74-99) mg/dL POC Glucose (mg/dL) 180 H 166 H (75-99) mg/dL Calcium (8.4-10.2) mg/dL AST (17-59) U/L ALT (21-72) U/L Total Protein (6.3-8.2) g/dL Albumin (3.5-5.0) g/dL Arterial Blood Potassium (3.4-4.5) mmol/L Arterial Blood Glucose (75-99) mg/dL Crossmatch 08/02/17 08/02/17 08/02/17 Range/Units 20:12 21:10 21:21 WBC (3.8-10.6) k/uL RBC (4.30-5.90) m/uL Hgb (13.0-17.5) gm/dL Hct (39.0-53.0) % Plt Count (150-450) k/uL Neutrophils # (1.3-7.7) k/uL Lymphocytes # (1.0-4.8) k/uL Monocytes # (0-1.0) k/uL ABG pH (7.35-7.45) ABG pCO2 (35-45) mmHg ABG pO2 (83-108) mmHg ABG HCO3 (21-25) mmol/L ABG Total CO2 (19-24) mmol/L ABG O2 Saturation (94-97) % ABG Hematocrit (34.0-46.0) % ABG Potassium (3.4-4.5) mmol/L ABG Ionized Calcium (4.5-5.3) mg/dL ABG Glucose (75-99) mg/dL Hemoglobin (13.0-17.5) gm/dL Potassium (3.5-5.1) mmol/L Chloride (98-107) mmol/L BUN 21 H (9-20) mg/dL Glucose 155 H (74-99) mg/dL POC Glucose (mg/dL) 154 H 157 H (75-99) mg/dL Calcium (8.4-10.2) mg/dL AST (17-59) U/L ALT (21-72) U/L Total Protein (6.3-8.2) g/dL Albumin (3.5-5.0) g/dL Arterial Blood Potassium (3.4-4.5) mmol/L Arterial Blood Glucose (75-99) mg/dL Crossmatch 08/02/17 08/02/17 08/02/17 Range/Units 21:21 22:00 22:57 WBC 12.2 H (3.8-10.6) k/uL RBC 3.57 L (4.30-5.90) m/uL Hgb 11.2 L (13.0-17.5) gm/dL Hct 34.1 L (39.0-53.0) % Plt Count 109 L (150-450) k/uL Neutrophils # 10.6 H (1.3-7.7) k/uL Lymphocytes # 0.4 L (1.0-4.8) k/uL Monocytes # 1.1 H (0-1.0) k/uL ABG pH (7.35-7.45) ABG pCO2 (35-45) mmHg ABG pO2 (83-108) mmHg ABG HCO3 (21-25) mmol/L ABG Total CO2 (19-24) mmol/L ABG O2 Saturation (94-97) % ABG Hematocrit (34.0-46.0) % ABG Potassium (3.4-4.5) mmol/L ABG Ionized Calcium (4.5-5.3) mg/dL ABG Glucose (75-99) mg/dL Hemoglobin (13.0-17.5) gm/dL Potassium (3.5-5.1) mmol/L Chloride (98-107) mmol/L BUN (9-20) mg/dL Glucose (74-99) mg/dL POC Glucose (mg/dL) 174 H 192 H (75-99) mg/dL Calcium (8.4-10.2) mg/dL AST (17-59) U/L ALT (21-72) U/L Total Protein (6.3-8.2) g/dL Albumin (3.5-5.0) g/dL Arterial Blood Potassium (3.4-4.5) mmol/L Arterial Blood Glucose (75-99) mg/dL Crossmatch 08/02/17 08/03/17 08/03/17 Range/Units 23:55 01:04 02:11 WBC (3.8-10.6) k/uL RBC (4.30-5.90) m/uL Hgb (13.0-17.5) gm/dL Hct (39.0-53.0) % Plt Count (150-450) k/uL Neutrophils # (1.3-7.7) k/uL Lymphocytes # (1.0-4.8) k/uL Monocytes # (0-1.0) k/uL ABG pH (7.35-7.45) ABG pCO2 (35-45) mmHg ABG pO2 (83-108) mmHg ABG HCO3 (21-25) mmol/L ABG Total CO2 (19-24) mmol/L ABG O2 Saturation (94-97) % ABG Hematocrit (34.0-46.0) % ABG Potassium (3.4-4.5) mmol/L ABG Ionized Calcium (4.5-5.3) mg/dL ABG Glucose (75-99) mg/dL Hemoglobin (13.0-17.5) gm/dL Potassium (3.5-5.1) mmol/L Chloride (98-107) mmol/L BUN (9-20) mg/dL Glucose (74-99) mg/dL POC Glucose (mg/dL) 207 H 191 H 169 H (75-99) mg/dL Calcium (8.4-10.2) mg/dL AST (17-59) U/L ALT (21-72) U/L Total Protein (6.3-8.2) g/dL Albumin (3.5-5.0) g/dL Arterial Blood Potassium (3.4-4.5) mmol/L Arterial Blood Glucose (75-99) mg/dL Crossmatch 08/03/17 08/03/17 08/03/17 Range/Units 03:07 03:35 03:35 WBC 12.0 H (3.8-10.6) k/uL RBC 3.49 L (4.30-5.90) m/uL Hgb 11.4 L (13.0-17.5) gm/dL Hct 32.8 L (39.0-53.0) % Plt Count 109 L (150-450) k/uL Neutrophils # 9.6 H (1.3-7.7) k/uL Lymphocytes # 0.9 L (1.0-4.8) k/uL Monocytes # 1.1 H (0-1.0) k/uL ABG pH (7.35-7.45) ABG pCO2 (35-45) mmHg ABG pO2 (83-108) mmHg ABG HCO3 (21-25) mmol/L ABG Total CO2 (19-24) mmol/L ABG O2 Saturation (94-97) % ABG Hematocrit (34.0-46.0) % ABG Potassium (3.4-4.5) mmol/L ABG Ionized Calcium (4.5-5.3) mg/dL ABG Glucose (75-99) mg/dL Hemoglobin (13.0-17.5) gm/dL Potassium (3.5-5.1) mmol/L Chloride (98-107) mmol/L BUN 21 H (9-20) mg/dL Glucose 134 H (74-99) mg/dL POC Glucose (mg/dL) 142 H (75-99) mg/dL Calcium (8.4-10.2) mg/dL AST 89 H (17-59) U/L ALT 73 H (21-72) U/L Total Protein 5.2 L (6.3-8.2) g/dL Albumin 3.1 L (3.5-5.0) g/dL Arterial Blood Potassium (3.4-4.5) mmol/L Arterial Blood Glucose (75-99) mg/dL Crossmatch 08/03/17 08/03/17 08/03/17 Range/Units 03:57 05:48 06:23 WBC (3.8-10.6) k/uL RBC (4.30-5.90) m/uL Hgb (13.0-17.5) gm/dL Hct (39.0-53.0) % Plt Count (150-450) k/uL Neutrophils # (1.3-7.7) k/uL Lymphocytes # (1.0-4.8) k/uL Monocytes # (0-1.0) k/uL ABG pH (7.35-7.45) ABG pCO2 (35-45) mmHg ABG pO2 (83-108) mmHg ABG HCO3 (21-25) mmol/L ABG Total CO2 (19-24) mmol/L ABG O2 Saturation (94-97) % ABG Hematocrit (34.0-46.0) % ABG Potassium (3.4-4.5) mmol/L ABG Ionized Calcium (4.5-5.3) mg/dL ABG Glucose (75-99) mg/dL Hemoglobin (13.0-17.5) gm/dL Potassium (3.5-5.1) mmol/L Chloride (98-107) mmol/L BUN (9-20) mg/dL Glucose (74-99) mg/dL POC Glucose (mg/dL) 143 H 155 H 149 H (75-99) mg/dL Calcium (8.4-10.2) mg/dL AST (17-59) U/L ALT (21-72) U/L Total Protein (6.3-8.2) g/dL Albumin (3.5-5.0) g/dL Arterial Blood Potassium (3.4-4.5) mmol/L Arterial Blood Glucose (75-99) mg/dL Crossmatch 08/03/17 08/03/17 08/03/17 Range/Units 06:59 08:06 09:10 WBC (3.8-10.6) k/uL RBC (4.30-5.90) m/uL Hgb (13.0-17.5) gm/dL Hct (39.0-53.0) % Plt Count (150-450) k/uL Neutrophils # (1.3-7.7) k/uL Lymphocytes # (1.0-4.8) k/uL Monocytes # (0-1.0) k/uL ABG pH (7.35-7.45) ABG pCO2 (35-45) mmHg ABG pO2 (83-108) mmHg ABG HCO3 (21-25) mmol/L ABG Total CO2 (19-24) mmol/L ABG O2 Saturation (94-97) % ABG Hematocrit (34.0-46.0) % ABG Potassium (3.4-4.5) mmol/L ABG Ionized Calcium (4.5-5.3) mg/dL ABG Glucose (75-99) mg/dL Hemoglobin (13.0-17.5) gm/dL Potassium (3.5-5.1) mmol/L Chloride (98-107) mmol/L BUN (9-20) mg/dL Glucose (74-99) mg/dL POC Glucose (mg/dL) 135 H 187 H 221 H (75-99) mg/dL Calcium (8.4-10.2) mg/dL AST (17-59) U/L ALT (21-72) U/L Total Protein (6.3-8.2) g/dL Albumin (3.5-5.0) g/dL Arterial Blood Potassium (3.4-4.5) mmol/L Arterial Blood Glucose (75-99) mg/dL Crossmatch 08/03/17 08/03/17 08/03/17 Range/Units 10:09 11:16 12:35 WBC (3.8-10.6) k/uL RBC (4.30-5.90) m/uL Hgb (13.0-17.5) gm/dL Hct (39.0-53.0) % Plt Count (150-450) k/uL Neutrophils # (1.3-7.7) k/uL Lymphocytes # (1.0-4.8) k/uL Monocytes # (0-1.0) k/uL ABG pH (7.35-7.45) ABG pCO2 (35-45) mmHg ABG pO2 (83-108) mmHg ABG HCO3 (21-25) mmol/L ABG Total CO2 (19-24) mmol/L ABG O2 Saturation (94-97) % ABG Hematocrit (34.0-46.0) % ABG Potassium (3.4-4.5) mmol/L ABG Ionized Calcium (4.5-5.3) mg/dL ABG Glucose (75-99) mg/dL Hemoglobin (13.0-17.5) gm/dL Potassium (3.5-5.1) mmol/L Chloride (98-107) mmol/L BUN (9-20) mg/dL Glucose (74-99) mg/dL POC Glucose (mg/dL) 180 H 150 H 148 H (75-99) mg/dL Calcium (8.4-10.2) mg/dL AST (17-59) U/L ALT (21-72) U/L Total Protein (6.3-8.2) g/dL Albumin (3.5-5.0) g/dL Arterial Blood Potassium (3.4-4.5) mmol/L Arterial Blood Glucose (75-99) mg/dL Crossmatch - Imaging and Cardiology Chest x-ray: report reviewed, image reviewed Assessment and Plan (1) History of myocardial infarction Current Visit: Yes Status: Acute Code(s): I25.2 - OLD MYOCARDIAL INFARCTION SNOMED Code(s): 457370823 (2) Coronary artery disease Current Visit: Yes Status: Acute Code(s): I25.10 - ATHSCL HEART DISEASE OF [place] CORONARY ARTERY W/O ANG PCTRS SNOMED Code(s): 54965017 (3) Hypertension Current Visit: Yes Status: Acute Code(s): I10 - ESSENTIAL (PRIMARY) HYPERTENSION SNOMED Code(s): 71392643 (4) Diabetes mellitus type 2 in obese Current Visit: Yes Status: Acute Code(s): E11.69 - TYPE 2 DIABETES MELLITUS WITH OTHER SPECIFIED COMPLICATION; E66.9 - OBESITY, UNSPECIFIED SNOMED Code(s) : 88082120 (5) Obesity (BMI 30-39.9) Current Visit: Yes Status: Acute Code(s): E66.9 - OBESITY, UNSPECIFIED SNOMED Code(s): 029016377 (6) History of pneumonia Current Visit: Yes Status: Acute Code(s): Z87.01 - PERSONAL HISTORY OF PNEUMONIA (RECURRENT) SNOMED Code(s): 109473243 (7) GERD (gastroesophageal reflux disease) Current Visit: Yes Status: Acute Code(s): K21.9 - GASTRO-ESOPHAGEAL REFLUX DISEASE WITHOUT ESOPHAGITIS SNOMED Code(s): 585273571 (8) Hyperlipemia Current Visit: No Status: Acute Code(s): E78.5 - HYPERLIPIDEMIA, UNSPECIFIED SNOMED Code(s): 60640211 (9) Nicotine dependence Current Visit: No Status: Acute Code(s): F17.200 - NICOTINE DEPENDENCE, UNSPECIFIED, UNCOMPLICATED SNOMED Code(s): 27087107 Plan: 1. Continue aspirin, statin, subcu heparin, Plavix and beta kayla. We will increase his metoprolol tartrate 25 mg by mouth twice a day. 2. We will restart his lisinopril 5 mg by mouth daily at noon. 3. Remove his Minong-Jt catheter and keep his Cordis in place to continuous CVP monitoring. 4. Wean oxygen as tolerated. Encourage use of his incentive spirometry every hour while awake. Pulmonary management recommendations per Dr. Hale. 5. GI and DVT prophylaxis in place. 6. Increase activity as tolerated. Physical therapy, occupational therapy and cardiac rehab consulted. 7. Continue to reinforce importance of smoking cessation. 8. Continue CIWAH protocol. Watch for signs of delirium tremors. 9. Keep chest tubes in place today to low continuous wall suction -20 cm H2O. 10. Diabetic and medical management per primary care service recommendations. 11. Discontinue nitroglycerin drip and Cleviprex drip. 12. We will monitor his daily labs and chest x-rays. 13. Further recommendations to follow as patient progresses in his care. Time with Patient: Greater than 30
[2017-08-03 13:37] LABS: Glucose,Whole Blood 140 mg/dL (75-99)
[2017-08-03] MEDS ORDERED: MAGNESIUM HYDROXIDE 2,400 MG/10 ML CUP PO PRN (13:50)
[2017-08-03] MEDS ORDERED: BISACODYL 10 MG SUPP RECTAL PRN (13:50)
[2017-08-03] MEDS ORDERED: IPRATROPIUM-ALBUTEROL 3 ML NEB INHALATION PRN (13:51)
--- NOTE | 2017-08-03 14:13 | PN ---
PROGRESS NOTE A 47-year-old gentleman who is postop day #1, extubated, remains in sinus rhythm, hemodynamically stable. PHYSICAL EXAM: Comfortable at rest. Vital signs are stable. There is no jugular venous distention. Chest exam reveals diminished air entry at the bases. Heart exam reveals first and second heart sounds. No gallop. Abdomen is soft. Exam of extremities did not reveal any edema. Peripheral pulses are palpable. ASSESSMENT: Coronary artery disease, status post coronary artery bypass grafting, postoperative day #1. Patient is doing well. Will continue the patient on aspirin, Plavix, Zestril, metoprolol, that son. MMODL / IJN: [id number] /
[2017-08-03 15:03] LABS: Glucose,Whole Blood 163 mg/dL (75-99)
[2017-08-03] MEDS: INSULIN REGULAR 100 UNIT in SODIUM CHLORIDE 0.9% 100 ML IV SCH (16:05)
[2017-08-03 16:07] LABS: Glucose,Whole Blood 169 mg/dL (75-99)
[2017-08-03] MEDS: LISINOPRIL 5 MG TAB PO SCH (17:48)
[2017-08-03 17:51] LABS: Glucose,Whole Blood 141 mg/dL (75-99)
[2017-08-03 20:03] LABS: Glucose,Whole Blood 182 mg/dL (75-99)
[2017-08-03] MEDS: METOPROLOL TARTRATE 50 MG TAB PO SCH (20:59)
[2017-08-03] MEDS: SENNOSIDES-DOCUSATE SODIUM 1 EACH TAB PO SCH (21:05)
[2017-08-03 21:54] LABS: Glucose,Whole Blood 162 mg/dL (75-99)
[2017-08-03] MEDS ORDERED: HYDROcodone/APAP 5-325MG 1 EACH TAB PO PRN ×2 (23:59)
[2017-08-04 00:11] LABS: Glucose,Whole Blood 202 mg/dL (75-99)
[2017-08-04 02:14] LABS: Glucose,Whole Blood 200 mg/dL (75-99)
[2017-08-04 03:54] LABS: Glucose,Whole Blood 109 mg/dL (75-99)
[2017-08-04 05:26] LABS: Basophils % (A) 0 %; Eosinophils # (A) 0.2 k/uL (0-0.7); Eosinophils % (A) 2 %; HCT 27.9 % (39.0-53.0); Lymphocytes # (A) 1.1 k/uL (1.0-4.8); Lymphocytes % (A) 12 %; MCH 32.2 pg (25.0-35.0); MCHC 34.5 g/dL (31.0-37.0); MCV 93.4 fL (80.0-100.0); Mean Platelet Volume 8.3; Monocytes # (A) 0.8 k/uL (0-1.0); Monocytes % (A) 8 %; Neutrophils # (A) 7.1 k/uL (1.3-7.7); Neutrophils % (A) 75 %; Poikilocytosis Slight; RBC 2.99 m/uL (4.30-5.90); RDW 13.7 % (11.5-15.5); WBC 9.6 k/uL (3.8-10.6)
[2017-08-04 05:30] LABS: Ionized Calcium 4.7 mg/dL (4.5-5.3)
[2017-08-04 05:35] LABS: Prothrombin Time 9.8 sec (9.0-12.0)
[2017-08-04 05:41] LABS: ALT 54 U/L (21-72); AST 60 U/L (17-59); Albumin 2.5 g/dL (3.5-5.0); Alkaline Phosphatase 73 U/L (38-126); Anion Gap 8 mmol/L; Blood Urea Nitrogen 30 mg/dL (9-20); Carbon Dioxide 24 mmol/L (22-30); Chloride 101 mmol/L (98-107); Glucose 110 mg/dL (74-99); Magnesium 2.1 mg/dL (1.6-2.3); Potassium 4.5 mmol/L (3.5-5.1); Sodium 133 mmol/L (137-145); Total Bilirubin 1.3 mg/dL (0.2-1.3); Total Protein 4.6 g/dL (6.3-8.2)
[2017-08-04 05:48] LABS: HGB 9.6 gm/dL (13.0-17.5)
[2017-08-04 05:55] LABS: Glucose,Whole Blood 124 mg/dL (75-99)
[2017-08-04 06:01] LABS: Platelet Count 89 k/uL (150-450); Polychromasia Present
[2017-08-04] MEDS: KETOROLAC 30 MG/ML 1 ML VIAL IVP SCH ×4 (06:25→23:53)
[2017-08-04] MEDS: LACTATED RINGERS 1,000 ML IV SCH (06:25)
--- NOTE | 2017-08-04 07:56 | XR ---
EXAMINATION TYPE: XR chest 1V portable DATE OF EXAM: 08/04/2017 COMPARISON: Prior chest 08/03/2017 HISTORY: Postop cardiac surgery, chest tube TECHNIQUE: Single frontal view of the chest is obtained. FINDINGS: Left-sided chest tube remains in place. Right jugular central venous sheath is in place, c atheter has been removed. No sizable pneumothorax evident. Lung volumes are low and the patient is ro tated. Heart and mediastinal appear similar. There may be some improvement in aeration at the lung ba ses. Median sternal drain remains in place. There are overlying cardiac leads. IMPRESSION: Improved aeration. Additional follow-up recommended.
[2017-08-04] MEDS: ASPIRIN 325 MG TAB PO SCH (08:09)
[2017-08-04] MEDS: HEPARIN SODIUM,PORCINE 5,000 UNIT/ML 1 ML VIAL SQ SCH ×4 (08:09→23:50)
[2017-08-04] MEDS: PANTOPRAZOLE 40 MG TABLET PO SCH (08:09)
[2017-08-04] MEDS: CLOPIDOGREL 75 MG TAB PO SCH (08:10)
[2017-08-04] MEDS: ATORVASTATIN 40 MG TAB PO SCH (08:10)
[2017-08-04] MEDS: METOPROLOL TARTRATE 50 MG TAB PO SCH ×2 (08:10→23:50)
[2017-08-04] MEDS: MUPIROCIN 2% OINT 22 GM TUBE NASAL SCH ×2 (08:11→20:06)
[2017-08-04 08:23] LABS: Glucose,Whole Blood 202 mg/dL (75-99)
[2017-08-04] MEDS: IPRATROPIUM-ALBUTEROL 3 ML NEB INHALATION SCH ×4 (08:23→19:37)
[2017-08-04 10:14] LABS: Glucose,Whole Blood 207 mg/dL (75-99)
[2017-08-04] MEDS: INSULIN DETEMIR 100 UNIT/ML 10 ML VIAL SQ SCH ×2 (10:22→20:06)
--- NOTE | 2017-08-04 10:30 | P.PN ---
Subjective Progress Note Date: 08/04/17 Principal diagnosis: Symptomatic multivessel coronary artery disease, history of known coronary artery disease with post prior stenting to his right coronary artery and circumflex coronary artery, obesity, diabetes mellitus type 2, hypertension, hyperlipidemia, myocardial infarction this admission troponins as high as 0.044 , history of nephrolithiasis, osteoarthritis, history of pneumonia, current nicotine dependence, chronic lumbar back pain and GERD. POD #2 urgent coronary artery bypass grafting 3 vessels with placement of his left internal mammary artery to his left anterior ascending coronary artery, a reverse greater saphenous vein graft to his diagonal coronary artery, reverse greater saphenous vein graft to his posterior lateral branch of his right coronary artery. Endoscopic vein harvest of his left greater saphenous vein, intraoperative epi-aortic ultrasound and transesophageal echocardiogram. Patient is sitting up to the bedside chair. He is in no acute distress. He currently rates his pain 8 out of 10 on the pain scale. He reports that the [place] make him hyper and is requesting his pain medication to be changed. His heart hugger is in place and he is demonstrating appropriate use. Oxygen saturations are 98% on room air. Objective - Vital Signs Vital signs: Vital Signs Temp 97.9 F 08/04/17 08:00 Pulse 97 08/04/17 09:00 Resp 29 H 08/04/17 09:00 BP 96/56 08/04/17 09:00 Pulse Ox 95 08/04/17 09:00 Intake & Output 08/03/17 08/04/17 08/04/17 18:59 06:59 18:59 Intake Total 2502.786 393 235.197 Output Total 820 870 250 Balance 1682.786 -477 -14.803 Weight 121.1 kg 127 kg Intake: IV 535 393 99 Cardiac Output 20 LR 440 360 90 pressure bags 75 33 9 Intake, IV Titration 247.786 76.197 Amount ACETAMINOPHEN IV (For NPO 200 ) 1,000 mg In Empty Bag 1 bag @ 400 mls/hr IVPB Q6HR ANDRE Rx#:[id number] Clevidipine Butyrate 25 3.733 mg In Empty Bag 1 bag @ 1 MG/HR 2 mls/hr IV .Q24H ANDRE Rx#:[id number] Insulin Regular 100 unit 44.053 76.197 In Sodium Chloride 0.9% 100 ml @ Per Protocol IV .Q0M ANDRE Rx#:[id number] Oral 1720 60 Output: Chest Tube Drainage 250 180 40 Bilateral Mediastinal 140 100 10 Left Pleural 110 80 30 Urine 570 690 210 Other: Voiding Method Indwelling Catheter Indwelling Catheter Indwelling Catheter # Voids 1 ABP, PAP, CO, CI - Last Documented Arterial Blood Pressure 144/66 Pulmonary Artery Pressure 28/17 Cardiac Output 6.5 Cardiac Index 2.8 - Constitutional General appearance: Present: cooperative, no acute distress, obese - EENT ENT: Present: hearing grossly normal - Neck Details: Neck is supple, no JVD, no lymphadenopathy. - Respiratory Details: Lungs sounds essentially clear throughout, diminished his bilateral bases. Respirations are symmetrical nonlabored. Oxygen saturation are 90% on room air. He is achieving 5521-4549 mL on his incentive spirometry. Mediastinal and left pleural chest tubes remain in place to low continuous wall suction -20 cm H2O. Draining thin serosanguineous drainage. No air leak present. Mediastinal chest tubes drained 40 mL output in the last 8 hours, 200 mL output in the last 24 hours. Left pleural chest tube drained 70 mL output in the last 8 hours, 300 mL output in the last 24 hours. - Cardiovascular Details: Regular rhythm and rate. S1 and S2 present, negative for S3, gallop or murmur. Sternum is stable. Bedside telemetry showing sinus tachycardia heart rate 103. Heart hugger is in place and he is demonstrating appropriate use. Atrial and ventricular epicardial pacemaker wires in place and grounded. Knee-high KATHERINE hose and sequential compression devices in place to his bilateral lower extremities. No edema present. Right IJ Cordis in place and to continuous CVP monitoring, current CVP pressure 9. - Gastrointestinal Gastrointestinal Comment(s): Abdomen is soft, nontender and nondistended. Obese. Active bowel sounds all 4 abdominal quadrants. Tolerating oral intake. Passing flatus. - Genitourinary Genitourinary Comment(s): Weinberg catheter for accurate I&O. Adequate urine output. 570 mL output in the last 8 hours. - Integumentary Integumentary Comment(s): Skin is warm and dry. No clubbing or cyanosis present. Midline sternal incision clean dry and well approximated. No drainage or redness present. Dermabond dressing clean and dry. Left leg EVH site clean dry and approximated. No drainage or redness present. - Neurologic Neurologic: Present: CNII-XII intact - Musculoskeletal Musculoskeletal: Present: gait normal, strength equal bilaterally - Psychiatric Psychiatric: Present: A&O x's 3, appropriate affect, intact judgment & insight - Allied health notes Allied health notes reviewed: nursing - Labs CBC & Chem 7: 08/04/17 05:10 08/04/17 05:10 Labs: Abnormal Lab Results - Last 24 Hours (Table) 08/03/17 08/03/17 08/03/17 Range/Units 11:16 12:35 13:35 RBC (4.30-5.90) m/uL Hgb (13.0-17.5) gm/dL Hct (39.0-53.0) % Plt Count (150-450) k/uL Sodium (137-145) mmol/L BUN (9-20) mg/dL Glucose (74-99) mg/dL POC Glucose (mg/dL) 150 H 148 H 140 H (75-99) mg/dL Calcium (8.4-10.2) mg/dL AST (17-59) U/L Total Protein (6.3-8.2) g/dL Albumin (3.5-5.0) g/dL 08/03/17 08/03/17 08/03/17 Range/Units 15:02 16:05 17:50 RBC (4.30-5.90) m/uL Hgb (13.0-17.5) gm/dL Hct (39.0-53.0) % Plt Count (150-450) k/uL Sodium (137-145) mmol/L BUN (9-20) mg/dL Glucose (74-99) mg/dL POC Glucose (mg/dL) 163 H 169 H 141 H (75-99) mg/dL Calcium (8.4-10.2) mg/dL AST (17-59) U/L Total Protein (6.3-8.2) g/dL Albumin (3.5-5.0) g/dL 08/03/17 08/03/17 08/04/17 Range/Units 20:01 21:53 00:10 RBC (4.30-5.90) m/uL Hgb (13.0-17.5) gm/dL Hct (39.0-53.0) % Plt Count (150-450) k/uL Sodium (137-145) mmol/L BUN (9-20) mg/dL Glucose (74-99) mg/dL POC Glucose (mg/dL) 182 H 162 H 202 H (75-99) mg/dL Calcium (8.4-10.2) mg/dL AST (17-59) U/L Total Protein (6.3-8.2) g/dL Albumin (3.5-5.0) g/dL 08/04/17 08/04/17 08/04/17 Range/Units 02:13 03:52 05:10 RBC (4.30-5.90) m/uL Hgb (13.0-17.5) gm/dL Hct (39.0-53.0) % Plt Count (150-450) k/uL Sodium 133 L (137-145) mmol/L BUN 30 H (9-20) mg/dL Glucose 110 H (74-99) mg/dL POC Glucose (mg/dL) 200 H 109 H (75-99) mg/dL Calcium 8.0 L (8.4-10.2) mg/dL AST 60 H (17-59) U/L Total Protein 4.6 L (6.3-8.2) g/dL Albumin 2.5 L (3.5-5.0) g/dL 08/04/17 08/04/17 08/04/17 Range/Units 05:10 05:54 08:19 RBC 2.99 L (4.30-5.90) m/uL Hgb 9.6 L D (13.0-17.5) gm/dL Hct 27.9 L (39.0-53.0) % Plt Count 89 L (150-450) k/uL Sodium (137-145) mmol/L BUN (9-20) mg/dL Glucose (74-99) mg/dL POC Glucose (mg/dL) 124 H 202 H (75-99) mg/dL Calcium (8.4-10.2) mg/dL AST (17-59) U/L Total Protein (6.3-8.2) g/dL Albumin (3.5-5.0) g/dL - Imaging and Cardiology Chest x-ray: report reviewed, image reviewed Assessment and Plan (1) History of myocardial infarction Current Visit: Yes Status: Acute Code(s): I25.2 - OLD MYOCARDIAL INFARCTION SNOMED Code(s): 995106042 (2) Coronary artery disease Current Visit: Yes Status: Acute Code(s): I25.10 - ATHSCL HEART DISEASE OF [place] CORONARY ARTERY W/O ANG PCTRS SNOMED Code(s): 15638285 (3) Hypertension Current Visit: Yes Status: Acute Code(s): I10 - ESSENTIAL (PRIMARY) HYPERTENSION SNOMED Code(s): 31250194 (4) Diabetes mellitus type 2 in obese Current Visit: Yes Status: Acute Code(s): E11.69 - TYPE 2 DIABETES MELLITUS WITH OTHER SPECIFIED COMPLICATION; E66.9 - OBESITY, UNSPECIFIED SNOMED Code(s) : 73783402 (5) Obesity (BMI 30-39.9) Current Visit: Yes Status: Acute Code(s): E66.9 - OBESITY, UNSPECIFIED SNOMED Code(s): 610936095 (6) History of pneumonia Current Visit: Yes Status: Acute Code(s): Z87.01 - PERSONAL HISTORY OF PNEUMONIA (RECURRENT) SNOMED Code(s): 832149245 (7) GERD (gastroesophageal reflux disease) Current Visit: Yes Status: Acute Code(s): K21.9 - GASTRO-ESOPHAGEAL REFLUX DISEASE WITHOUT ESOPHAGITIS SNOMED Code(s): 050309203 (8) Hyperlipemia Current Visit: No Status: Acute Code(s): E78.5 - HYPERLIPIDEMIA, UNSPECIFIED SNOMED Code(s): 36620104 (9) Nicotine dependence Current Visit: No Status: Acute Code(s): F17.200 - NICOTINE DEPENDENCE, UNSPECIFIED, UNCOMPLICATED SNOMED Code(s): 62295820 Plan: 1. Continue aspirin, statin, subcu heparin, Plavix and beta kayla. We increase beta kalya as tolerated.. 2. Continue lisinopril 5 mg by mouth daily at noon. 3. Remove Cordis. Saline lock IV. 4. Encourage use of his incentive spirometry every hour while awake. Pulmonary management recommendations per Dr. Hale. 5. GI and DVT prophylaxis in place. 6. Increase activity as tolerated. Physical therapy, occupational therapy and cardiac rehab following. 7. Continue to reinforce importance of smoking cessation. 8. Continue CIWA protocol. Watch for signs of delirium tremors. 9. We will remove his mediastinal chest tubes, keep left pleural chest tube in place today to low continuous wall suction -20 cm H2O. 10. Diabetic and medical management per primary care service recommendations. 11. We will monitor his daily labs and chest x-rays. 12. His [place] os have been discontinued and he has been started on Tylenol 3's 1 by mouth every 4 hours when necessary pain. 13. Further recommendations to follow as patient progresses in his care. We will transfer the patient to [address] [place] [address] when bed available. Time with Patient: Greater than 30
[2017-08-04] MEDS: THIAMINE 100 MG TAB PO SCH ×2 (11:38→17:45)
[2017-08-04] MEDS: FOLIC ACID 1 MG TAB PO SCH (11:38)
[2017-08-04] MEDS: MULTIVITAMINS, THERA 1 EACH TAB PO SCH (11:38)
[2017-08-04] MEDS: Acetaminophen-Codeine 300-30mg TAB PO PRN ×2 (11:38→17:48)
[2017-08-04 11:47] LABS: Glucose,Whole Blood 181 mg/dL (75-99)
--- NOTE | 2017-08-04 12:50 | PN ---
PROGRESS NOTE A 47-year-old gentleman with coronary artery disease, status post CABG. This morning he is doing well, stable hemodynamically. Remains in sinus rhythm. Blood pressure is normal. Denies any cardiac symptoms. CURRENT MEDICATIONS: Include aspirin, Lipitor, Plavix, Zestril, Lopressor. PHYSICAL EXAM: He is comfortable at rest. Vital signs are stable. Chest exam reveals diminished air entry at the bases. Heart exam reveals first and second heart sounds. No gallop. Exam of extremities did not reveal any edema. Peripheral pulses are felt. ASSESSMENT: Coronary artery disease, status post coronary artery bypass grafting. PLAN: Patient is doing well. He will continue with his current medications. Hopefully can be transferred out to telemetry. MMODL / IJN: [id number] /
[2017-08-04 16:21] LABS: Glucose,Whole Blood 239 mg/dL (75-99)
[2017-08-04] MEDS: INSULIN ASPART 100 UNIT/ML 1 ML 10 ML VIAL SQ SCH ×3 (16:36→20:05)
--- NOTE | 2017-08-04 16:59 | P.PN ---
Subjective Progress Note Date: 08/04/17 On 08/03/2017, the patient is postop day #1 following coronary to bypass surgery. The patient underwent three-vessel bypass with OMALLEY to LAD, saphenous vein graft to diagonal, posterior lateral branch of RCA. The patient came into the intensive care unit intubated on a mechanical ventilator. Within 6 hours of arrival, the patient was weaned off the mechanical ventilator and the patient was extubated without any major difficulties. The patient is awake and alert this morning sitting up on a chair. The patient has a adequate hemodynamic with adequate cardiac output index. The Archer-Jt catheter will be removed. The chest x-ray shows small better pleural effusion and the chest tubes are all in good location. The patient was having some issues with hypertension. He was briefly placed on Cleviprex which was discontinued. Currently the patient is on nitroglycerin at 5 mcg/m. The patient is also on Lopressor this will be started this morning. He is afebrile. He is having adequate pain control. Sternum stable clean and intact. No change in mental status. He is following commands and answering questions appropriately. His underlying rhythm is sinus. His hemoglobin is at 11.4. The chest tube output from the left was 165 mL during this last shift and from the mediastinum is down 96 and mouth for the next shift. The patient's body weight is 121 kg. He will be encouraged to use the incentive spirometer. No other significant events overnight. On 08/04/2017 I'm seeing this patient for a follow-up. The patient is postop day #2. He is sitting up on a chair. He has still mediastinal chest tubes and a left pleural chest tube. This sometimes will be removed today 9 and output has been low. The patient remains hemodynamic is stable. The patient is off the nitroglycerin drip. The patient is maintaining his own blood pressure. Slightly tachycardic and we have made suggestions to increase the metoprolol to 50 mg by mouth twice a day. He is also on 5 mg of lisinopril for blood pressure control. He is on insulin drip which will be switched to Lantus insulin. He is taking 40 units of insulin drip on an hourly basis. He is tolerating his diet. No nausea or vomiting. Sternum stable clean and intact. Hemodynamically stable. He is in a sinus rhythm. He mentions that no cold is giving him side effects and the hives made recommendations to switch him to Tylenol 3 for pain control. He is doing well. No other significant events over the past 24 hours. Neurologically awake and alert. Objective - Vital Signs Vital signs: Vital Signs Temp 97.9 F 08/04/17 12:00 Pulse 96 08/04/17 16:00 Resp 33 H 08/04/17 16:00 BP 103/62 08/04/17 16:00 Pulse Ox 99 08/04/17 16:00 Intake & Output 08/03/17 08/04/17 08/04/17 18:59 06:59 18:59 Intake Total 2502.786 393 463.197 Output Total 820 870 555 Balance 1682.786 -477 -91.803 Weight 121.1 kg 127 kg Intake: IV 535 393 327 Cardiac Output 20 LR 440 360 300 pressure bags 75 33 27 Intake, IV Titration 247.786 76.197 Amount ACETAMINOPHEN IV (For NPO 200 ) 1,000 mg In Empty Bag 1 bag @ 400 mls/hr IVPB Q6HR ANDRE Rx#:[id number] Clevidipine Butyrate 25 3.733 mg In Empty Bag 1 bag @ 1 MG/HR 2 mls/hr IV .Q24H ANDRE Rx#:[id number] Insulin Regular 100 unit 44.053 76.197 In Sodium Chloride 0.9% 100 ml @ Per Protocol IV .Q0M ANDRE Rx#:[id number] Oral 1720 60 Output: Chest Tube Drainage 250 180 110 Bilateral Mediastinal 140 100 10 Left Pleural 110 80 100 Urine 570 690 445 Other: Voiding Method Indwelling Catheter Indwelling Catheter Urinal # Voids 1 0 ABP, PAP, CO, CI - Last Documented Arterial Blood Pressure 144/66 Pulmonary Artery Pressure 28/17 Cardiac Output 6.5 Cardiac Index 2.8 - Exam - Constitutional General appearance: Present: cooperative, no acute distress, obese - EENT ENT: Present: hearing grossly normal - Neck Details: Neck is supple, no JVD, no lymphadenopathy. - Respiratory Details: Lungs sounds essentially clear throughout, diminished his bilateral bases. Respirations are symmetrical nonlabored. Oxygen saturation are 90% on room air. He is achieving 4907-0692 mL on his incentive spirometry. Mediastinal and left pleural chest tubes remain in place to low continuous wall suction -20 cm H2O. Draining thin serosanguineous drainage. No air leak present. Mediastinal chest tubes drained 40 mL output in the last 8 hours, 200 mL output in the last 24 hours. Left pleural chest tube drained 70 mL output in the last 8 hours, 300 mL output in the last 24 hours. - Cardiovascular Details: Regular rhythm and rate. S1 and S2 present, negative for S3, gallop or murmur. Sternum is stable. Bedside telemetry showing sinus tachycardia heart rate 103. Heart hugger is in place and he is demonstrating appropriate use. Atrial and ventricular epicardial pacemaker wires in place and grounded. Knee-high KATHERINE hose and sequential compression devices in place to his bilateral lower extremities. No edema present. Right IJ Cordis in place and to continuous CVP monitoring, current CVP pressure 9. - Gastrointestinal Gastrointestinal Comment(s): Abdomen is soft, nontender and nondistended. Obese. Active bowel sounds all 4 abdominal quadrants. Tolerating oral intake. Passing flatus. - Genitourinary Genitourinary Comment(s): Weinberg catheter for accurate I&O. Adequate urine output. 570 mL output in the last 8 hours. - Integumentary Integumentary Comment(s): Skin is warm and dry. No clubbing or cyanosis present. Midline sternal incision clean dry and well approximated. No drainage or redness present. Dermabond dressing clean and dry. Left leg EVH site clean dry and approximated. No drainage or redness present. - Neurologic Neurologic: Present: CNII-XII intact - Musculoskeletal Musculoskeletal: Present: gait normal, strength equal bilaterally - Psychiatric Psychiatric: Present: A&O x's 3, appropriate affect, intact judgment & insight - Labs CBC & Chem 7: 08/04/17 05:10 08/04/17 05:10 Labs: Abnormal Lab Results - Last 24 Hours (Table) 08/03/17 08/03/17 08/03/17 Range/Units 17:50 20:01 21:53 RBC (4.30-5.90) m/uL Hgb (13.0-17.5) gm/dL Hct (39.0-53.0) % Plt Count (150-450) k/uL Sodium (137-145) mmol/L BUN (9-20) mg/dL Glucose (74-99) mg/dL POC Glucose (mg/dL) 141 H 182 H 162 H (75-99) mg/dL Calcium (8.4-10.2) mg/dL AST (17-59) U/L Total Protein (6.3-8.2) g/dL Albumin (3.5-5.0) g/dL 08/04/17 08/04/17 08/04/17 Range/Units 00:10 02:13 03:52 RBC (4.30-5.90) m/uL Hgb (13.0-17.5) gm/dL Hct (39.0-53.0) % Plt Count (150-450) k/uL Sodium (137-145) mmol/L BUN (9-20) mg/dL Glucose (74-99) mg/dL POC Glucose (mg/dL) 202 H 200 H 109 H (75-99) mg/dL Calcium (8.4-10.2) mg/dL AST (17-59) U/L Total Protein (6.3-8.2) g/dL Albumin (3.5-5.0) g/dL 08/04/17 08/04/17 08/04/17 Range/Units 05:10 05:10 05:54 RBC 2.99 L (4.30-5.90) m/uL Hgb 9.6 L D (13.0-17.5) gm/dL Hct 27.9 L (39.0-53.0) % Plt Count 89 L (150-450) k/uL Sodium 133 L (137-145) mmol/L BUN 30 H (9-20) mg/dL Glucose 110 H (74-99) mg/dL POC Glucose (mg/dL) 124 H (75-99) mg/dL Calcium 8.0 L (8.4-10.2) mg/dL AST 60 H (17-59) U/L Total Protein 4.6 L (6.3-8.2) g/dL Albumin 2.5 L (3.5-5.0) g/dL 08/04/17 08/04/17 08/04/17 Range/Units 08:19 10:12 11:46 RBC (4.30-5.90) m/uL Hgb (13.0-17.5) gm/dL Hct (39.0-53.0) % Plt Count (150-450) k/uL Sodium (137-145) mmol/L BUN (9-20) mg/dL Glucose (74-99) mg/dL POC Glucose (mg/dL) 202 H 207 H 181 H (75-99) mg/dL Calcium (8.4-10.2) mg/dL AST (17-59) U/L Total Protein (6.3-8.2) g/dL Albumin (3.5-5.0) g/dL 08/04/17 Range/Units 16:20 RBC (4.30-5.90) m/uL Hgb (13.0-17.5) gm/dL Hct (39.0-53.0) % Plt Count (150-450) k/uL Sodium (137-145) mmol/L BUN (9-20) mg/dL Glucose (74-99) mg/dL POC Glucose (mg/dL) 239 H (75-99) mg/dL Calcium (8.4-10.2) mg/dL AST (17-59) U/L Total Protein (6.3-8.2) g/dL Albumin (3.5-5.0) g/dL Assessment and Plan Plan: Assessment: #1. Symptomatic coronary artery disease, status post artery artery bypass grafting, 3 with OMALLEY to LAD, SVG to the Susan, and SVG to the posterior branch of the RCA, postop day 2 #2. History of coronary artery disease, with prior stenting of the circumflex artery and prior history of myocardial infarction #3. Diabetes mellitus type 2, still on insulin drip for blood sugar control #4. Nicotine dependence, ongoing #5. Daily alcohol intake, patient drinks around a pint of Rum a day #6. Hyperlipidemia, hypertension #7. GERD/reflux #8. Chronic lumbar pain #9. Osteoarthritis #10. History of nephrolithiasis Plan Provide this patient time no 3 for pain control. Discontinue the insulin drip and put the patient on Lantus 20 units a day along with NovoLog sliding scale coverage. Continue aspirin and Plavix and statins. Continue metoprolol 50 mg twice a day. Continue lisinopril 5 mg by mouth daily. Remove the cordis. Remove the mediastinal chest tubes. Watch for any signs of delirium tremens. Chest x-ray was reviewed. Clinically stable. We'll continue to follow and we' ll keep the patient ICU for 24 hours.
[2017-08-04 17:23] LABS: Glucose,Whole Blood 224 mg/dL (75-99)
[2017-08-04] MEDS: LISINOPRIL 5 MG TAB PO SCH (17:45)
[2017-08-04 19:59] LABS: Glucose,Whole Blood 251 mg/dL (75-99)
[2017-08-04] MEDS: SENNOSIDES-DOCUSATE SODIUM 1 EACH TAB PO SCH (20:14)
[2017-08-04 21:10] LABS: Glucose,Whole Blood 282 mg/dL (75-99)
[2017-08-05 00:15] LABS: Glucose,Whole Blood 172 mg/dL (75-99)
[2017-08-05] MEDS: Acetaminophen-Codeine 300-30mg TAB PO PRN (01:59)
[2017-08-05] MEDS: KETOROLAC 30 MG/ML 1 ML VIAL IVP SCH ×3 (05:15→17:47)
[2017-08-05 06:23] LABS: Magnesium 2.3 mg/dL (1.6-2.3); Potassium 5.4 mmol/L (3.5-5.1)
[2017-08-05 06:24] LABS: Basophils % (A) 0 %; Eosinophils # (A) 0.2 k/uL (0-0.7); Eosinophils % (A) 3 %; HCT 25.3 % (39.0-53.0); HGB 8.7 gm/dL (13.0-17.5); Lymphocytes # (A) 1.1 k/uL (1.0-4.8); Lymphocytes % (A) 13 %; MCH 32.3 pg (25.0-35.0); MCHC 34.5 g/dL (31.0-37.0); MCV 93.7 fL (80.0-100.0); Mean Platelet Volume 8.8; Monocytes # (A) 0.6 k/uL (0-1.0); Monocytes % (A) 7 %; Neutrophils # (A) 6.1 k/uL (1.3-7.7); Neutrophils % (A) 72 %; Platelet Count 104 k/uL (150-450); Poikilocytosis Slight; RDW 13.5 % (11.5-15.5); WBC 8.5 k/uL (3.8-10.6)
--- NOTE | 2017-08-05 07:21 | XR ---
EXAMINATION TYPE: XR chest 1V portable DATE OF EXAM: 08/05/2017 COMPARISON: Prior chest x-ray 08/04/2017 HISTORY: Chest tube, postop cardiac surgery TECHNIQUE: Single frontal view of the chest is obtained. FINDINGS: Left-sided chest tube remains in place, right jugular central venous sheath has been remov ed. No sizable pneumothorax is evident. Patient is post median sternotomy and the heart is enlarged, mediastinum remains widened. Median sternal drain is no longer seen. Some residual atelectatic change s are suspected, no definite airspace disease. No sizable effusion. IMPRESSION: Satisfactory postoperative chest x-ray. There may be some improvement in aeration.
[2017-08-05] MEDS: IPRATROPIUM-ALBUTEROL 3 ML NEB INHALATION SCH (07:31)
[2017-08-05] MEDS: INSULIN ASPART 100 UNIT/ML 1 ML 10 ML VIAL SQ SCH ×6 (08:40→20:01)
[2017-08-05 08:41] LABS: Glucose,Whole Blood 216 mg/dL (75-99)
[2017-08-05] MEDS: MUPIROCIN 2% OINT 22 GM TUBE NASAL SCH ×2 (08:42→20:01)
[2017-08-05] MEDS: PANTOPRAZOLE 40 MG TABLET PO SCH (08:42)
[2017-08-05] MEDS: ATORVASTATIN 40 MG TAB PO SCH (08:42)
[2017-08-05] MEDS: ASPIRIN 325 MG TAB PO SCH (08:42)
[2017-08-05] MEDS: CLOPIDOGREL 75 MG TAB PO SCH (08:42)
[2017-08-05] MEDS: METOPROLOL TARTRATE 50 MG TAB PO SCH ×2 (08:42→20:00)
[2017-08-05] MEDS: HEPARIN SODIUM,PORCINE 5,000 UNIT/ML 1 ML VIAL SQ SCH ×2 (08:42→17:46)
--- NOTE | 2017-08-05 10:32 | P.PN ---
Subjective Progress Note Date: 08/05/17 On 08/03/2017, the patient is postop day #1 following coronary to bypass surgery. The patient underwent three-vessel bypass with OMALLEY to LAD, saphenous vein graft to diagonal, posterior lateral branch of RCA. The patient came into the intensive care unit intubated on a mechanical ventilator. Within 6 hours of arrival, the patient was weaned off the mechanical ventilator and the patient was extubated without any major difficulties. The patient is awake and alert this morning sitting up on a chair. The patient has a adequate hemodynamic with adequate cardiac output index. The Euclid-Jt catheter will be removed. The chest x-ray shows small better pleural effusion and the chest tubes are all in good location. The patient was having some issues with hypertension. He was briefly placed on Cleviprex which was discontinued. Currently the patient is on nitroglycerin at 5 mcg/m. The patient is also on Lopressor this will be started this morning. He is afebrile. He is having adequate pain control. Sternum stable clean and intact. No change in mental status. He is following commands and answering questions appropriately. His underlying rhythm is sinus. His hemoglobin is at 11.4. The chest tube output from the left was 165 mL during this last shift and from the mediastinum is down 96 and mouth for the next shift. The patient's body weight is 121 kg. He will be encouraged to use the incentive spirometer. No other significant events overnight. On 08/04/2017 I'm seeing this patient for a follow-up. The patient is postop day #2. He is sitting up on a chair. He has still mediastinal chest tubes and a left pleural chest tube. This sometimes will be removed today 9 and output has been low. The patient remains hemodynamic is stable. The patient is off the nitroglycerin drip. The patient is maintaining his own blood pressure. Slightly tachycardic and we have made suggestions to increase the metoprolol to 50 mg by mouth twice a day. He is also on 5 mg of lisinopril for blood pressure control. He is on insulin drip which will be switched to Lantus insulin. He is taking 40 units of insulin drip on an hourly basis. He is tolerating his diet. No nausea or vomiting. Sternum stable clean and intact. Hemodynamically stable. He is in a sinus rhythm. He mentions that no cold is giving him side effects and the hives made recommendations to switch him to Tylenol 3 for pain control. He is doing well. No other significant events over the past 24 hours. Neurologically awake and alert. On 08/05/2017 I'm seeing this patient for a follow-up and is postop day #3. The mediastinal tubes have been removed. The patient has a left pleural chest tube and output of which is minimal and can be taken out. He is hemodynamically stable. His pain is under good control with Tylenol threes. His blood sugar needs to be further adjusted knowing that the patient is still having some limited blood sugar elevation and I will suggest increasing the Lantus dose at baseline. No altered mentation. No agitation. He is requesting a Xanax to help him with sleep at nighttime. Otherwise, he is hemodynamically stable and there has been no other significant events over the past 24 hours. Objective - Vital Signs Vital signs: Vital Signs Temp 98.1 F 08/05/17 08:00 Pulse 96 08/05/17 09:00 Resp 20 08/05/17 09:00 BP 115/77 08/05/17 09:00 Pulse Ox 96 08/05/17 08:00 Intake & Output 08/04/17 08/05/17 08/05/17 18:59 06:59 18:59 Intake Total 553.197 750 360 Output Total 555 530 300 Balance -1.803 220 60 Weight 127 kg Intake: IV 417 LR 390 pressure bags 27 Intake, IV Titration 76.197 Amount Insulin Regular 100 unit 76.197 In Sodium Chloride 0.9% 100 ml @ Per Protocol IV .Q0M [facility] Rx#:[id number] Oral 60 750 360 Output: Chest Tube Drainage 110 130 Bilateral Mediastinal 10 Left Pleural 100 130 Urine 445 400 300 Other: Voiding Method Urinal Urinal Urinal # Voids 0 0 1 ABP, PAP, CO, CI - Last Documented Arterial Blood Pressure 144/66 Pulmonary Artery Pressure 28/17 Cardiac Output 6.5 Cardiac Index 2.8 - Exam - Constitutional General appearance: Present: cooperative, no acute distress, obese - EENT ENT: Present: hearing grossly normal - Neck Details: Neck is supple, no JVD, no lymphadenopathy. - Respiratory Details: Lungs sounds essentially clear throughout, diminished his bilateral bases. He sent her chest tubes have been removed. The left pleural chest tube has drained around 100 mL over the past 24 hours. - Cardiovascular Details: Regular rhythm and rate. S1 and S2 present, negative for S3, gallop or murmur. Sternum is stable. Bedside telemetry showing sinus tachycardia heart rate 103. Heart hugger is in place and he is demonstrating appropriate use. Atrial and ventricular epicardial pacemaker wires in place and grounded. Knee-high KATHERINE hose and sequential compression devices in place to his bilateral lower extremities. No edema present. Right IJ Cordis in place and to continuous CVP monitoring, current CVP pressure 9. - Gastrointestinal Gastrointestinal Comment(s): Abdomen is soft, nontender and nondistended. Obese. Active bowel sounds all 4 abdominal quadrants. Tolerating oral intake. Passing flatus. - Genitourinary Genitourinary Comment(s): Weinberg catheter is out - Integumentary Integumentary Comment(s): Skin is warm and dry. No clubbing or cyanosis present. Midline sternal incision clean dry and well approximated. No drainage or redness present. Dermabond dressing clean and dry. Left leg EVH site clean dry and approximated. No drainage or redness present. - Neurologic Neurologic: Present: CNII-XII intact - Musculoskeletal Musculoskeletal: Present: gait normal, strength equal bilaterally - Psychiatric Psychiatric: Present: A&O x's 3, appropriate affect, intact judgment & insight - Labs CBC & Chem 7: 08/05/17 05:40 08/05/17 05:40 Labs: Abnormal Lab Results - Last 24 Hours (Table) 08/04/17 08/04/17 08/04/17 Range/Units 11:46 16:20 17:21 RBC (4.30-5.90) m/uL Hgb (13.0-17.5) gm/dL Hct (39.0-53.0) % Plt Count (150-450) k/uL Sodium (137-145) mmol/L Potassium (3.5-5.1) mmol/L BUN (9-20) mg/dL Glucose (74-99) mg/dL POC Glucose (mg/dL) 181 H 239 H 224 H (75-99) mg/dL Calcium (8.4-10.2) mg/dL 08/04/17 08/04/17 08/05/17 Range/Units 19:56 21:08 00:13 RBC (4.30-5.90) m/uL Hgb (13.0-17.5) gm/dL Hct (39.0-53.0) % Plt Count (150-450) k/uL Sodium (137-145) mmol/L Potassium (3.5-5.1) mmol/L BUN (9-20) mg/dL Glucose (74-99) mg/dL POC Glucose (mg/dL) 251 H 282 H 172 H (75-99) mg/dL Calcium (8.4-10.2) mg/dL 08/05/17 08/05/17 08/05/17 Range/Units 05:40 05:40 08:39 RBC 2.70 L (4.30-5.90) m/uL Hgb 8.7 L (13.0-17.5) gm/dL Hct 25.3 L (39.0-53.0) % Plt Count 104 L (150-450) k/uL Sodium 132 L (137-145) mmol/L Potassium 5.4 H (3.5-5.1) mmol/L BUN 40 H (9-20) mg/dL Glucose 197 H (74-99) mg/dL POC Glucose (mg/dL) 216 H (75-99) mg/dL Calcium 8.0 L (8.4-10.2) mg/dL Assessment and Plan Plan: Assessment: #1. Symptomatic coronary artery disease, status post artery artery bypass grafting, 3 with OMALLEY to LAD, SVG to the Susan, and SVG to the posterior branch of the RCA, postop day 3 #2. History of coronary artery disease, with prior stenting of the circumflex artery and prior history of myocardial infarction #3. Diabetes mellitus type 2 #4. Nicotine dependence, ongoing #5. Daily alcohol intake, patient drinks around a pint of Rum a day #6. Hyperlipidemia, hypertension #7. GERD/reflux #8. Chronic lumbar pain #9. Osteoarthritis #10. History of nephrolithiasis Plan Increase the Lantus up to 26 units a day. Continue with sliding scale coverage. Remove the left-sided chest tubes. The pupils the pacemaker wires. Ablate this patient. Can transfer to telemetry unit today. The pulmonary status is stable. The patient is using incentive spirometer. No other issues for now.
--- NOTE | 2017-08-05 11:03 | P.PN ---
Subjective Progress Note Date: 08/05/17 Principal diagnosis: Symptomatic multivessel coronary artery disease, history of known coronary artery disease with post prior stenting to his right coronary artery and circumflex coronary artery, obesity, diabetes mellitus type 2, hypertension, hyperlipidemia, myocardial infarction this admission troponins as high as 0.044 , history of nephrolithiasis, osteoarthritis, history of pneumonia, current nicotine dependence, chronic lumbar back pain and GERD. POD #3 urgent coronary artery bypass grafting 3 vessels with placement of his left internal mammary artery to his left anterior ascending coronary artery, a reverse greater saphenous vein graft to his diagonal coronary artery, reverse greater saphenous vein graft to his posterior lateral branch of his right coronary artery. Endoscopic vein harvest of his left greater saphenous vein, intraoperative epi-aortic ultrasound and transesophageal echocardiogram. Patient is sitting up to the bedside chair. He is in no acute distress. He currently denies any complaints of pain or shortness of breath. He reports that the Tylenol 3's heart working much better for his pain control. His heart hugger is in place and he is demonstrating appropriate use. Oxygen saturations are 96% on room air. Objective - Vital Signs Vital signs: Vital Signs Temp 98.7 F 08/05/17 04:00 Pulse 90 08/05/17 06:00 Resp 20 08/05/17 06:00 BP 105/61 08/05/17 06:00 Pulse Ox 96 08/05/17 06:00 Intake & Output 08/04/17 08/05/17 08/05/17 18:59 06:59 18:59 Intake Total 553.197 750 Output Total 555 530 Balance -1.803 220 Intake: IV 417 LR 390 pressure bags 27 Intake, IV Titration 76.197 Amount Insulin Regular 100 unit 76.197 In Sodium Chloride 0.9% 100 ml @ Per Protocol IV .Q0M [facility] Rx#:[id number] Oral 60 750 Output: Chest Tube Drainage 110 130 Bilateral Mediastinal 10 Left Pleural 100 130 Urine 445 400 Other: Voiding Method Urinal Urinal # Voids 0 0 ABP, PAP, CO, CI - Last Documented Arterial Blood Pressure 144/66 Pulmonary Artery Pressure 28/17 Cardiac Output 6.5 Cardiac Index 2.8 - Constitutional General appearance: Present: cooperative, no acute distress, obese - EENT ENT: Present: hearing grossly normal - Neck Details: No JVD, neck is supple, no lymphadenopathy. - Respiratory Details: Lung sounds are essentially clear throughout, few scattered crackles to his bilateral bases. Respirations are symmetrical and nonlabored. Oxygen saturation are 96% on room air. He is achieving 1000 L on his incentive spirometry. Left pleural chest tube remains in place to low continuous wall suction -20 cm H2O. No air leak present. Draining thin serosanguineous drainage. 130 mL output in the last 8 hours, 230 mL output in the last 24 hours. - Cardiovascular Details: Regular rhythm and rate. S1 and S2 present, negative for S3, gallop or murmur. Sternum is stable. Bedside telemetry showing normal sinus rhythm heart rate 92. Heart hugger is in place and he is demonstrating appropriate use. Atrial and ventricular epicardial pacemaker wires in place and grounded. Knee-high KATHERINE hose and sequential compression devices in place to his bilateral lower extremities. +1 pedal edema present bilaterally. - Gastrointestinal Gastrointestinal Comment(s): Abdomen is soft, nontender nondistended. Active bowel sounds all 4 abdominal quadrants. Tolerating oral intake. Passing flatus. No bowel movement since surgery. - Genitourinary Genitourinary Comment(s): Adequate urine output. Voiding clear yellow urine. 400 mL output last 8 hours. - Integumentary Integumentary Comment(s): Skin is warm and dry. No clubbing or cyanosis present. Midline sternal incision clean dry and well approximated. No drainage or redness present. Dermabond dressing clean and dry. Left leg EVH site clean dry and approximated. No drainage or redness present. - Neurologic Neurologic: Present: CNII-XII intact - Musculoskeletal Musculoskeletal: Present: gait normal, strength equal bilaterally - Psychiatric Psychiatric: Present: A&O x's 3, appropriate affect, intact judgment & insight - Allied health notes Allied health notes reviewed: nursing - Labs CBC & Chem 7: 08/05/17 05:40 08/05/17 05:40 Labs: Abnormal Lab Results - Last 24 Hours (Table) 08/04/17 08/04/17 08/04/17 Range/Units 10:12 11:46 16:20 RBC (4.30-5.90) m/uL Hgb (13.0-17.5) gm/dL Hct (39.0-53.0) % Plt Count (150-450) k/uL Sodium (137-145) mmol/L Potassium (3.5-5.1) mmol/L BUN (9-20) mg/dL Glucose (74-99) mg/dL POC Glucose (mg/dL) 207 H 181 H 239 H (75-99) mg/dL Calcium (8.4-10.2) mg/dL 08/04/17 08/04/17 08/04/17 Range/Units 17:21 19:56 21:08 RBC (4.30-5.90) m/uL Hgb (13.0-17.5) gm/dL Hct (39.0-53.0) % Plt Count (150-450) k/uL Sodium (137-145) mmol/L Potassium (3.5-5.1) mmol/L BUN (9-20) mg/dL Glucose (74-99) mg/dL POC Glucose (mg/dL) 224 H 251 H 282 H (75-99) mg/dL Calcium (8.4-10.2) mg/dL 08/05/17 08/05/17 08/05/17 Range/Units 00:13 05:40 05:40 RBC 2.70 L (4.30-5.90) m/uL Hgb 8.7 L (13.0-17.5) gm/dL Hct 25.3 L (39.0-53.0) % Plt Count 104 L (150-450) k/uL Sodium 132 L (137-145) mmol/L Potassium 5.4 H (3.5-5.1) mmol/L BUN 40 H (9-20) mg/dL Glucose 197 H (74-99) mg/dL POC Glucose (mg/dL) 172 H (75-99) mg/dL Calcium 8.0 L (8.4-10.2) mg/dL 08/05/17 Range/Units 08:39 RBC (4.30-5.90) m/uL Hgb (13.0-17.5) gm/dL Hct (39.0-53.0) % Plt Count (150-450) k/uL Sodium (137-145) mmol/L Potassium (3.5-5.1) mmol/L BUN (9-20) mg/dL Glucose (74-99) mg/dL POC Glucose (mg/dL) 216 H (75-99) mg/dL Calcium (8.4-10.2) mg/dL - Imaging and Cardiology Chest x-ray: report reviewed, image reviewed Assessment and Plan (1) History of myocardial infarction Current Visit: Yes Status: Acute Code(s): I25.2 - OLD MYOCARDIAL INFARCTION SNOMED Code(s): 918244911 (2) Coronary artery disease Current Visit: Yes Status: Acute Code(s): I25.10 - ATHSCL HEART DISEASE OF [place] CORONARY ARTERY W/O ANG PCTRS SNOMED Code(s): 41786677 (3) Hypertension Current Visit: Yes Status: Acute Code(s): I10 - ESSENTIAL (PRIMARY) HYPERTENSION SNOMED Code(s): 35251360 (4) Diabetes mellitus type 2 in obese Current Visit: Yes Status: Acute Code(s): E11.69 - TYPE 2 DIABETES MELLITUS WITH OTHER SPECIFIED COMPLICATION; E66.9 - OBESITY, UNSPECIFIED SNOMED Code(s) : 51608715 (5) Obesity (BMI 30-39.9) Current Visit: Yes Status: Acute Code(s): E66.9 - OBESITY, UNSPECIFIED SNOMED Code(s): 746133236 (6) History of pneumonia Current Visit: Yes Status: Acute Code(s): Z87.01 - PERSONAL HISTORY OF PNEUMONIA (RECURRENT) SNOMED Code(s): 697088704 (7) GERD (gastroesophageal reflux disease) Current Visit: Yes Status: Acute Code(s): K21.9 - GASTRO-ESOPHAGEAL REFLUX DISEASE WITHOUT ESOPHAGITIS SNOMED Code(s): 008088488 (8) Hyperlipemia Current Visit: No Status: Acute Code(s): E78.5 - HYPERLIPIDEMIA, UNSPECIFIED SNOMED Code(s): 94763118 (9) Nicotine dependence Current Visit: No Status: Acute Code(s): F17.200 - NICOTINE DEPENDENCE, UNSPECIFIED, UNCOMPLICATED SNOMED Code(s): 95300357 Plan: 1. Continue aspirin, statin, subcu heparin, Plavix and beta kayla. We increase beta kayla as tolerated.. 2. Continue lisinopril 5 mg by mouth daily at noon. 3. Pulmonary management recommendations per Dr. Hale. 4. Encourage use of his incentive spirometry every hour while awake. 5. GI and DVT prophylaxis in place. 6. Increase activity as tolerated. Physical therapy, occupational therapy and cardiac rehab following. 7. Continue to reinforce importance of smoking cessation. 8. Continue [facility] protocol. Watch for signs of delirium tremors. 9. We will remove his left pleural chest tube. 10. Diabetic and medical management per primary care service recommendations. 11. We will monitor his daily labs and chest x-rays. 12. We will remove his epicardial pacemaker wires. He will be on bedrest for 1 hour post pacemaker wire removal. 13. Discontinue his lisinopril for some episodes of hypotension. 14. Further recommendations to follow as patient progresses in his care. We will transfer the patient to [address] [place] [address] when bed available. Anticipate discharge to inpatient rehab within the next 24 hours. Time with Patient: Greater than 30
[2017-08-05 12:01] LABS: Glucose,Whole Blood 154 mg/dL (75-99)
[2017-08-05] MEDS: MULTIVITAMINS, THERA 1 EACH TAB PO SCH (13:17)
[2017-08-05] MEDS: FOLIC ACID 1 MG TAB PO SCH (13:17)
[2017-08-05] MEDS: THIAMINE 100 MG TAB PO SCH ×2 (13:18→17:46)
--- NOTE | 2017-08-05 14:33 | PN ---
PROGRESS NOTE 47-year-old gentleman with multivessel coronary artery disease, status post CABG, doing well. Remains in sinus rhythm. Blood pressure is well controlled. The patient is on aspirin Lipitor Plavix insulin, Zestril, Lopressor 50 b.i.d. On exam, comfortable at rest. Vital signs are stable. There is no jugular venous distention. Chest exam reveals diminished air entry at the bases. Heart exam reveals first and second heart sounds. No gallop. Abdomen is soft. Exam of extremities did not reveal any edema. Peripheral pulses are palpable. LABS: Show a hemoglobin of 8.7, creatinine is 1.2. Potassium is 5.4. ASSESSMENT: 1. Coronary artery disease status post coronary artery bypass grafting. 2. Mitral regurgitation status post mitral valve repair. PLAN: Patient is doing well. Please follow her potassium in the outpatient setting. If it remains elevated, stop the Zestril. MMODL / IJN: [id number] /
--- NOTE | 2017-08-05 16:40 | P.CONS ---
History of Present Illness - Chief Complaint Cardiac debility - History of Present Illness I had To see patient for inpatient consultation with regard to cardiac debility. He was admitted to [facility] July 28 with chest pain and left arm discomfort. Seen by cardiac surgeon who did perform coronary bypassing and August 03. Seen in ICU by Drs. Marshall in [place]. Chest x-rays followed and demonstrated satisfactory postoperative appearance. OT reports supervision for upper dressing and moderate assistance for lower dressing and minimal assistance for bathing, toileting, transfers. Reports gait 100 feet with IV pole. PT prescribed. Previous functional history as elicited from patient: 47-year-old right-handed white male who is lives in a first-floor apartment alone. States his and he and he are currently going through some difficulty. Patient works full-time. Independent with own cooking, laundry, driving, standing shower and gait without device. History smoking but doesn't smoke currently. Was pint per day drinker. Regular doctors Dr. Cronin. Family history of mother with cancer. Review of Systems Review of systems: ENT: Denies sneezes or discharge. Eyes: Denies discharge or photophobia. Cardiac: Sternotomy discomfort. Pulmonary: Denies cough or shortness of breath. Gastrointestinal: Denies nausea, emesis, constipation, diarrhea. Genitourinary: Denies discharge or frequency. Musculoskeletal: Chronic low back pain which he is at for 12 years. Neurologic: Generalized weakness. Endocrine: Denies shakes or sweats. Oncology: Denies cancers. Dermatologic: Denies rash, itching, pruritus. ALLERGY/immunology: Denies sneezes, rashes. Past Medical History Past Medical History: Coronary Artery Disease (CAD), Diabetes Mellitus, GERD/ Reflux, Hyperlipidemia, Hypertension, Myocardial Infarction (PA), Osteoarthritis (OA), Pneumonia, Renal Disease Additional Past Medical History / Comment(s): NIDDM type II, chronic lumbar pain , colitis, athrtitis bilateral hands/wrists, nephrolithiasis. Last Myocardial Infarction Date:: 11/02/16 History of Any Multi-Drug Resistant Organisms: None Reported Past Surgical History: Heart Catheterization With Stent, Orthopedic Surgery Additional Past Surgical History / Comment(s): 11/02/16 PCI with stent to RCA, kidney stone basketing, failed L4-L5 fusions x 2, colonoscopy. Past Anesthesia/Blood Transfusion Reactions: No Reported Reaction Date of Last Stent Placement:: 11/02/16 Past Psychological History: No Psychological Hx Reported Additional Psychological History / Comment(s): Pt resides with his spouse. He is independent. He has a glucometer but no lancets or strips. Smoking Status: Former smoker Past Alcohol Use History: Daily Additional Past Alcohol Use History / Comment(s): Pt started smoking at the age of 17 yrs (1986) and depending on the day, he can smoke upwards to 1 PPD. He drinks alcohol daily-used to drink 1 pint a day of rum but states he has recently cut way back and some days doesn't drink at all. Past Drug Use History: None Reported - Past Family History Father Family Medical History: Congestive Heart Failure (CHF), Coronary Artery Disease (CAD), CVA/TIA, Myocardial Infarction (PA) Additional Family Medical History / Comment(s): Father at the age of 63 yrs. Pt doesn't recall age of father's PA. Mother Family Medical History: Cancer Additional Family Medical History / Comment(s): Mother had multiple cancers. She is living. Medications and Allergies Home Medications Medication Instructions Recorded Confirmed Type Atorvastatin [Lipitor] 80 mg PO HS #30 tab 11/08/16 07/28/17 Rx HYDROcodone/APAP 10-325MG [[place] 1 - 2 tab PO Q6H PRN 12/06/16 07/28/17 History 10-325] Multivitamins, Thera [Multivitamin 1 tab PO DAILY 12/06/16 07/28/17 History (formulary)] Clopidogrel [Plavix] 75 mg PO DAILY #30 tablet 12/07/16 07/28/17 Rx Aspirin EC [Ecotrin Low Dose] 81 mg PO DAILY 02/16/17 07/28/17 History Fish Oil/Dha/Epa [Fish Oil 1,200 1 cap PO DAILY 02/16/17 07/28/17 History mg Fish Oil] Metoprolol Tartrate [Lopressor] 50 mg PO BID 02/16/17 07/28/17 History Nitroglycerin Sl Tabs [Nitrostat] 0.4 mg SUBLINGUAL Q5M PRN #25 tab 02/18/17 Rx metFORMIN HCL [Glucophage] 1,000 mg PO BID #60 tab 02/18/17 07/28/17 Rx Glimepiride [Amaryl] 2 mg PO BID 07/28/17 07/28/17 History Lisinopril [Prinivil] 5 mg PO DAILY 07/28/17 07/28/17 History Ranitidine HCl 150 mg PO BID 07/28/17 07/28/17 History Allergies Allergy/AdvReac Type Severity Reaction Status Date / Time No Known Allergies Allergy Verified 07/28/17 21:28 Physical Exam Vitals: Vital Signs Temp Pulse Resp BP Pulse Ox 08/05/17 16:00 94 16 95 08/05/17 15:00 91 28 H 93 L 08/05/17 14:00 144/83 94 L 08/05/17 13:00 98 40 H 144/83 95 08/05/17 12:00 98.0 F 90 14 140/77 95 08/05/17 11:00 92 25 H 116/75 95 08/05/17 10:00 92 20 101/65 100 08/05/17 09:00 96 20 115/77 08/05/17 08:00 98.1 F 86 21 100/63 96 08/05/17 07:00 84 21 97/60 94 L 08/05/17 06:00 90 20 105/61 96 08/05/17 05:00 92 20 105/61 96 08/05/17 04:00 98.7 F 85 20 109/62 96 08/05/17 03:00 82 17 90/55 93 L 08/05/17 02:00 86 16 90/64 98 08/05/17 01:00 88 16 93 L 08/05/17 00:00 98.3 F 103 H 16 107/58 96 08/04/17 23:24 96 16 107/58 97 08/04/17 23:00 94 18 107/58 96 08/04/17 22:00 92 22 106/53 95 08/04/17 21:00 94 18 102/57 98 08/04/17 20:00 98.4 F 88 16 101/63 99 08/04/17 19:00 97 20 90/57 92 L 08/04/17 18:00 101 H 38 H 140/60 93 L 08/04/17 17:00 100 32 H 136/102 100 Intake and Output 08/05/17 08/05/17 08/05/17 06:59 14:59 22:59 Intake Total 250 860 Output Total 530 550 0 Balance -280 310 0 Intake: Oral 250 860 Output: Chest Tube Drainage 130 50 Left Pleural 130 50 Urine 400 500 0 Other: Voiding Method Urinal Urinal # Voids 0 1 Weight 127 kg 127 kg Skin: Good color, texture, turgor. General: Overweight build and comfortable appearance. Head: Normocephalic, atraumatic. Eyes: Symmetric. Pupils equal round. Ears: Symmetric. Hearing within normal limits. Mouth: Clear. Neck: Supple. Carotid without bruit. Cardiac: Regular rate and rhythm. As clean and dressed, wearing harness. Lungs: Clear anteriorly and posteriorly. Abdomen: Soft active nontender. Extremities: Normal tone. Neurological: Mental status: Alert, cooperative, pleasant. Cranial nerves: Symmetric facial tone and trapezius. Motor: Good active movement arms and at best antigravity in legs. Sensation: Intact throughout. DTRs: Symmetric and equal throughout. Mobility: Would require physical assistance to transfer to bedside Nhi chair. Results CBC & Chem 7: 08/05/17 05:40 08/05/17 05:40 Labs: Abnormal Lab Results - Last 24 Hours (Table) 08/04/17 08/04/17 08/04/17 Range/Units 17:21 19:56 21:08 RBC (4.30-5.90) m/uL Hgb (13.0-17.5) gm/dL Hct (39.0-53.0) % Plt Count (150-450) k/uL Sodium (137-145) mmol/L Potassium (3.5-5.1) mmol/L BUN (9-20) mg/dL Glucose (74-99) mg/dL POC Glucose (mg/dL) 224 H 251 H 282 H (75-99) mg/dL Calcium (8.4-10.2) mg/dL 08/05/17 08/05/17 08/05/17 Range/Units 00:13 05:40 05:40 RBC 2.70 L (4.30-5.90) m/uL Hgb 8.7 L (13.0-17.5) gm/dL Hct 25.3 L (39.0-53.0) % Plt Count 104 L (150-450) k/uL Sodium 132 L (137-145) mmol/L Potassium 5.4 H (3.5-5.1) mmol/L BUN 40 H (9-20) mg/dL Glucose 197 H (74-99) mg/dL POC Glucose (mg/dL) 172 H (75-99) mg/dL Calcium 8.0 L (8.4-10.2) mg/dL 08/05/17 08/05/17 Range/Units 08:39 11:59 RBC (4.30-5.90) m/uL Hgb (13.0-17.5) gm/dL Hct (39.0-53.0) % Plt Count (150-450) k/uL Sodium (137-145) mmol/L Potassium (3.5-5.1) mmol/L BUN (9-20) mg/dL Glucose (74-99) mg/dL POC Glucose (mg/dL) 216 H 154 H (75-99) mg/dL Calcium (8.4-10.2) mg/dL Assessment and Plan (1) Coronary artery disease Current Visit: Yes Status: Acute Code(s): I25.10 - ATHSCL HEART DISEASE OF [place] CORONARY ARTERY W/O ANG PCTRS SNOMED Code(s): 66795656 Plan: Impression: 1. Cardiac debility. 2. Coronary disease with history of angina, PA and recent bypass. 3. Lumbar disc disease with history of previous surgery now with chronic back pain. 4. Hypertension. 5. Dyslipidemia. 6. Diabetes. 7. Reflux. 8. Osteoarthritis. 9. History of renal disease. Comments and plan: At this time PT and OT are ongoing. OT documents definite safety concerns. Have discussed possible inpatient rehab with patient. Note main problem is patient lives alone and may not have supportive , which is currently going through difficult patch.
[2017-08-05 17:45] LABS: Glucose,Whole Blood 183 mg/dL (75-99)
--- NOTE | 2017-08-05 19:31 | P.PN ---
Subjective Progress Note Date: 08/04/17 Progress NOTE l being dictated for Dr. Briones Interval history: This a 47-year-old gentleman admitted with chest pain, possible acute non-STEMI with known history of CAD, [place], and multiple other medical issues. Evaluated by cardiology. Underwent cardiac catheterization this morning, reporting triple vessel disease: 60-70% stenosis of LAD involving ostial portion, 95% in the proximal RCA, 60% stenosis just prior to bifurcation into the PDA and PLV. Cardiothoracic surgery and pulmonary consulted. Carotid Doppler reporting thick neck with no significant velocity elevations. LFTs improving. Denies chest pain, palpitations or increased shortness of breath. 07/30/2017 developed hematoma at right groin site of cardiac cath., during the night. Ultrasound reporting pseudoaneurysm, status post injection with complete thrombosis as per IR. Denies abdominal pain. Evaluated by cardiothoracic surgery, scheduled for CABG on Wednesday. Denies chest pain, palpitations or increasing shortness of breath. Blood sugars remain elevated in the 200s. 07/31/2017 No overnight events 08/01/2017 No chest pain no significant overnight events 08/03/2079 Patient is status post ABG postoperative day one patient has a left right chest tubes along with mediastinal chest tube. Patient's [place]-Jt is out patient is comparing of pain in the chest beyond that no other issues patient is on IV insulin which we'll try to switch to Lantus and aspart regimen 08/04/2017 sitting up in chair, IS up to 1000, telemetry sinus rhythm. Ambulated in hallway with mild increased shortness of breath.chest x-ray reporting some improvement in aeration.elevated sugars,recently transitioned from insulin drip to long-acting insulin added to med regime. Objective - Vital Signs Vital signs: Vital Signs Temp 97.9 F 08/04/17 12:00 Pulse 100 08/04/17 17:00 Resp 32 H 08/04/17 17:00 BP 136/102 08/04/17 17:00 Pulse Ox 100 08/04/17 17:00 Intake & Output 08/03/17 08/04/17 08/04/17 18:59 06:59 18:59 Intake Total 2502.786 393 493.197 Output Total 820 870 555 Balance 1682.786 -477 -61.803 Weight 121.1 kg 127 kg Intake: IV 535 393 357 Cardiac Output 20 LR 440 360 330 pressure bags 75 33 27 Intake, IV Titration 247.786 76.197 Amount ACETAMINOPHEN IV (For NPO 200 ) 1,000 mg In Empty Bag 1 bag @ 400 mls/hr IVPB Q6HR ANDRE Rx#:[id number] Clevidipine Butyrate 25 3.733 mg In Empty Bag 1 bag @ 1 MG/HR 2 mls/hr IV .Q24H ANDRE Rx#:[id number] Insulin Regular 100 unit 44.053 76.197 In Sodium Chloride 0.9% 100 ml @ Per Protocol IV .Q0M ANDRE Rx#:[id number] Oral 1720 60 Output: Chest Tube Drainage 250 180 110 Bilateral Mediastinal 140 100 10 Left Pleural 110 80 100 Urine 570 690 445 Other: Voiding Method Indwelling Catheter Indwelling Catheter Urinal # Voids 1 0 ABP, PAP, CO, CI - Last Documented Arterial Blood Pressure 144/66 Pulmonary Artery Pressure 28/17 Cardiac Output 6.5 Cardiac Index 2.8 - Exam PHYSICAL EXAM: VITAL SIGNS: As above GENERAL: Sitting up in chair, no acute distress HEENT: Conjunctivae normal. eyes normal. Oral mucosa moist NECK: No JVD. No thyroid enlargement. No LNs CARDIOVASCULAR: Regular S1, S2. No murmur RESPIRATION: Breath sounds diminished in the bases. no rhonchi, no crackles. No wheezing,left pleural chest tube present ABDOMEN: Soft, nontender . No guarding. no masses palpable. Bowel sounds heard. LEGS: No edema. no swelling PSYCHIATRY: Alert and oriented -3, mood and affect normal. NERVOUS SYSTEM: Cranial N 2-12 grossly normal. Moves all 4 limbs. Diffuse weakness No focal deficits. Skin: Right groin puncture site hematoma, large ecchymosis - Labs CBC & Chem 7: 08/05/17 05:40 08/05/17 05:40 Labs: Abnormal Lab Results - Last 24 Hours (Table) 08/03/17 08/03/17 08/03/17 Range/Units 17:50 20:01 21:53 RBC (4.30-5.90) m/uL Hgb (13.0-17.5) gm/dL Hct (39.0-53.0) % Plt Count (150-450) k/uL Sodium (137-145) mmol/L BUN (9-20) mg/dL Glucose (74-99) mg/dL POC Glucose (mg/dL) 141 H 182 H 162 H (75-99) mg/dL Calcium (8.4-10.2) mg/dL AST (17-59) U/L Total Protein (6.3-8.2) g/dL Albumin (3.5-5.0) g/dL 08/04/17 08/04/17 08/04/17 Range/Units 00:10 02:13 03:52 RBC (4.30-5.90) m/uL Hgb (13.0-17.5) gm/dL Hct (39.0-53.0) % Plt Count (150-450) k/uL Sodium (137-145) mmol/L BUN (9-20) mg/dL Glucose (74-99) mg/dL POC Glucose (mg/dL) 202 H 200 H 109 H (75-99) mg/dL Calcium (8.4-10.2) mg/dL AST (17-59) U/L Total Protein (6.3-8.2) g/dL Albumin (3.5-5.0) g/dL 08/04/17 08/04/17 08/04/17 Range/Units 05:10 05:10 05:54 RBC 2.99 L (4.30-5.90) m/uL Hgb 9.6 L D (13.0-17.5) gm/dL Hct 27.9 L (39.0-53.0) % Plt Count 89 L (150-450) k/uL Sodium 133 L (137-145) mmol/L BUN 30 H (9-20) mg/dL Glucose 110 H (74-99) mg/dL POC Glucose (mg/dL) 124 H (75-99) mg/dL Calcium 8.0 L (8.4-10.2) mg/dL AST 60 H (17-59) U/L Total Protein 4.6 L (6.3-8.2) g/dL Albumin 2.5 L (3.5-5.0) g/dL 08/04/17 08/04/17 08/04/17 Range/Units 08:19 10:12 11:46 RBC (4.30-5.90) m/uL Hgb (13.0-17.5) gm/dL Hct (39.0-53.0) % Plt Count (150-450) k/uL Sodium (137-145) mmol/L BUN (9-20) mg/dL Glucose (74-99) mg/dL POC Glucose (mg/dL) 202 H 207 H 181 H (75-99) mg/dL Calcium (8.4-10.2) mg/dL AST (17-59) U/L Total Protein (6.3-8.2) g/dL Albumin (3.5-5.0) g/dL 08/04/17 08/04/17 Range/Units 16:20 17:21 RBC (4.30-5.90) m/uL Hgb (13.0-17.5) gm/dL Hct (39.0-53.0) % Plt Count (150-450) k/uL Sodium (137-145) mmol/L BUN (9-20) mg/dL Glucose (74-99) mg/dL POC Glucose (mg/dL) 239 H 224 H (75-99) mg/dL Calcium (8.4-10.2) mg/dL AST (17-59) U/L Total Protein (6.3-8.2) g/dL Albumin (3.5-5.0) g/dL Assessment and Plan Assessment: 1. Chest pain, possible acute non-STEMI, status post cardiac catheterization with triple-vessel disease, status post CABG 2. Troponin 0.044 3. CAD with history of [place] and stent 4. Diabetes mellitus type 2, hemoglobin A1c 9.6 5. Gastroesophageal reflux disease 6. Hyperlipidemia 7. Alcohol abuse 8. Ongoing nicotine abuse 9. Pseudoaneurysm Plan: Continue on current medication regime ,monitoring and symptomatic treatment. Converted over to long-acting insulin from insulin drip.close monitoring of Accu-Cheks. Aggressive pulmonary toileting, incentive spirometer reinforced. Smoking and alcohol cessation addressed. The impression and plan of care has been dictated as directed. : I performed a history and examination of this patient, discussed the same with the dictator. I agree with the dictator's note ,documented as a scribe. Any additional findings or plans will be noted.
--- NOTE | 2017-08-05 19:40 | P.PN ---
Subjective Progress Note Date: 08/05/17 Progress NOTE l being dictated for Dr. Soriano. Interval history: This a 47-year-old gentleman admitted with chest pain, possible acute non-STEMI with known history of CAD, [place], and multiple other medical issues. Evaluated by cardiology. Underwent cardiac catheterization this morning, reporting triple vessel disease: 60-70% stenosis of LAD involving ostial portion, 95% in the proximal RCA, 60% stenosis just prior to bifurcation into the PDA and PLV. Cardiothoracic surgery and pulmonary consulted. Carotid Doppler reporting thick neck with no significant velocity elevations. LFTs improving. Denies chest pain, palpitations or increased shortness of breath. 07/30/2017 developed hematoma at right groin site of cardiac cath., during the night. Ultrasound reporting pseudoaneurysm, status post injection with complete thrombosis as per IR. Denies abdominal pain. Evaluated by cardiothoracic surgery, scheduled for CABG on Wednesday. Denies chest pain, palpitations or increasing shortness of breath. Blood sugars remain elevated in the 200s. 07/31/2017 No overnight events 08/01/2017 No chest pain no significant overnight events 08/03/2079 Patient is status post ABG postoperative day one patient has a left right chest tubes along with mediastinal chest tube. Patient's [place]t is out patient is comparing of pain in the chest beyond that no other issues patient is on IV insulin which we'll try to switch to Lantus and aspart regimen 08/04/2017 sitting up in chair, IS up to 1000, telemetry sinus rhythm. Ambulated in hallway with mild increased shortness of breath.chest x-ray reporting some improvement in aeration.elevated sugars,recently transitioned from insulin drip to long-acting insulin added to med regime. 08/05/2017 no overnight events. Blood sugars better controlled but elevated. Ambulating in hallway, tolerating increase in exertion well. Telemetry sinus rhythm.pain controlled.hemoglobin 8.7.renal function mildly worseningwith elevated potassium of 5.4. Objective - Vital Signs Vital signs: Vital Signs Temp 98.0 F 08/05/17 17:00 Pulse 100 08/05/17 19:00 Resp 29 H 08/05/17 19:00 BP 97/61 08/05/17 17:00 Pulse Ox 94 L 08/05/17 19:00 Intake & Output 08/05/17 08/05/17 08/06/17 06:59 18:59 06:59 Intake Total 750 860 360 Output Total 530 800 0 Balance 220 60 360 Weight 127 kg Intake: Oral 750 860 360 Output: Chest Tube Drainage 130 50 Left Pleural 130 50 Urine 400 750 0 Other: Voiding Method Urinal Urinal # Voids 0 1 # Bowel Movements 1 ABP, PAP, CO, CI - Last Documented Arterial Blood Pressure 144/66 Pulmonary Artery Pressure 28/17 Cardiac Output 6.5 Cardiac Index 2.8 - Exam PHYSICAL EXAM: VITAL SIGNS: As above GENERAL: Sitting up in chair, no acute distress HEENT: Conjunctivae normal. eyes normal. Oral mucosa moist NECK: No JVD. No thyroid enlargement. No LNs CARDIOVASCULAR: Regular S1, S2. No murmur RESPIRATION: Breath sounds diminished in the bases. no rhonchi, no crackles. No wheezing ABDOMEN: Soft, nontender . No guarding. no masses palpable. Bowel sounds heard. LEGS: No edema. no swelling PSYCHIATRY: Alert and oriented -3, mood and affect normal. NERVOUS SYSTEM: Cranial N 2-12 grossly normal. Moves all 4 limbs. Diffuse weakness No focal deficits. Skin: Right groin puncture site hematoma, large ecchymosis - Labs CBC & Chem 7: 08/05/17 05:40 08/05/17 05:40 Labs: Abnormal Lab Results - Last 24 Hours (Table) 08/04/17 08/04/17 08/05/17 Range/Units 19:56 21:08 00:13 RBC (4.30-5.90) m/uL Hgb (13.0-17.5) gm/dL Hct (39.0-53.0) % Plt Count (150-450) k/uL Sodium (137-145) mmol/L Potassium (3.5-5.1) mmol/L BUN (9-20) mg/dL Glucose (74-99) mg/dL POC Glucose (mg/dL) 251 H 282 H 172 H (75-99) mg/dL Calcium (8.4-10.2) mg/dL 08/05/17 08/05/17 08/05/17 Range/Units 05:40 05:40 08:39 RBC 2.70 L (4.30-5.90) m/uL Hgb 8.7 L (13.0-17.5) gm/dL Hct 25.3 L (39.0-53.0) % Plt Count 104 L (150-450) k/uL Sodium 132 L (137-145) mmol/L Potassium 5.4 H (3.5-5.1) mmol/L BUN 40 H (9-20) mg/dL Glucose 197 H (74-99) mg/dL POC Glucose (mg/dL) 216 H (75-99) mg/dL Calcium 8.0 L (8.4-10.2) mg/dL 08/05/17 08/05/17 Range/Units 11:59 17:44 RBC (4.30-5.90) m/uL Hgb (13.0-17.5) gm/dL Hct (39.0-53.0) % Plt Count (150-450) k/uL Sodium (137-145) mmol/L Potassium (3.5-5.1) mmol/L BUN (9-20) mg/dL Glucose (74-99) mg/dL POC Glucose (mg/dL) 154 H 183 H (75-99) mg/dL Calcium (8.4-10.2) mg/dL Assessment and Plan Assessment: 1. Chest pain, possible acute non-STEMI, status post cardiac catheterization with triple-vessel disease, status post CABG 2. Troponin 0.044 3. CAD with history of [place] and stent 4. Diabetes mellitus type 2, hemoglobin A1c 9.6 5. Gastroesophageal reflux disease 6. Hyperlipidemia 7. Alcohol abuse 8. Ongoing nicotine abuse 9. Pseudoaneurysm 10. mild acute renal failure with hyperkalemia 11. Postoperative anemia Plan: Continue on current medication regime ,monitoring and symptomatic treatment. Lantus insulin dose further increased,close monitoring of Accu- Cheks. close monitoring of hemoglobin and renal function.Aggressive pulmonary toileting, incentive spirometer reinforced. Smoking and alcohol cessation addressed. The impression and plan of care has been dictated as directed. : I performed a history and examination of this patient, discussed the same with the dictator. I agree with the dictator's note ,documented as a scribe. Any additional findings or plans will be noted.
[2017-08-05 19:43] LABS: Glucose,Whole Blood 168 mg/dL (75-99)
[2017-08-05] MEDS: ALPRAZolam 0.5 MG TAB PO PRN (20:00)
[2017-08-05] MEDS: SENNOSIDES-DOCUSATE SODIUM 1 EACH TAB PO SCH (20:00)
[2017-08-05] MEDS ORDERED: INSULIN DETEMIR 100 UNIT/ML 10 ML VIAL SQ SCH (21:00)
[2017-08-06] MEDS: HEPARIN SODIUM,PORCINE 5,000 UNIT/ML 1 ML VIAL SQ SCH ×4 (00:15→23:14)
[2017-08-06] MEDS: KETOROLAC 30 MG/ML 1 ML VIAL IVP SCH ×5 (00:15→23:06)
[2017-08-06] MEDS: Acetaminophen-Codeine 300-30mg TAB PO PRN ×2 (00:41→22:14)
[2017-08-06 02:00] LABS: Glucose,Whole Blood 210 mg/dL (75-99)
[2017-08-06] MEDS: INSULIN ASPART 100 UNIT/ML 1 ML 10 ML VIAL SQ SCH ×9 (02:04→21:21)
[2017-08-06 05:46] LABS: Albumin 2.6 g/dL (3.5-5.0); Calcium 8.4 mg/dL (8.4-10.2); Magnesium 2.5 mg/dL (1.6-2.3); Potassium 5.2 mmol/L (3.5-5.1); Total Bilirubin 0.7 mg/dL (0.2-1.3); Total Protein 4.9 g/dL (6.3-8.2)
[2017-08-06 05:49] LABS: Basophils % (A) 0 %; Eosinophils # (A) 0.3 k/uL (0-0.7); Eosinophils % (A) 4 %; HCT 26.3 % (39.0-53.0); HGB 8.7 gm/dL (13.0-17.5); Lymphocytes # (A) 1.2 k/uL (1.0-4.8); Lymphocytes % (A) 17 %; MCH 31.3 pg (25.0-35.0); MCHC 32.9 g/dL (31.0-37.0); MCV 95.1 fL (80.0-100.0); Mean Platelet Volume 9.3; Monocytes # (A) 0.7 k/uL (0-1.0); Monocytes % (A) 10 %; Neutrophils # (A) 4.6 k/uL (1.3-7.7); Neutrophils % (A) 64 %; Platelet Count 152 k/uL (150-450); Poikilocytosis Slight; RBC 2.76 m/uL (4.30-5.90); RDW 13.6 % (11.5-15.5); WBC 7.1 k/uL (3.8-10.6)
[2017-08-06 07:01] LABS: Glucose,Whole Blood 144 mg/dL (75-99)
[2017-08-06] MEDS: METOPROLOL TARTRATE 50 MG TAB PO SCH ×2 (08:00→21:20)
[2017-08-06] MEDS: LORazepam 2 MG/ML INJ IV PRN (08:00)
[2017-08-06] MEDS: ASPIRIN 325 MG TAB PO SCH (08:00)
[2017-08-06] MEDS: PANTOPRAZOLE 40 MG TABLET PO SCH (08:01)
[2017-08-06] MEDS: ATORVASTATIN 40 MG TAB PO SCH (08:01)
[2017-08-06] MEDS: CLOPIDOGREL 75 MG TAB PO SCH (08:01)
--- NOTE | 2017-08-06 08:07 | XR ---
EXAMINATION TYPE: XR chest 2V DATE OF EXAM: 08/06/2017 COMPARISON: Prior chest x-ray 08/05/2017 HISTORY: Postop cardiac bypass graft TECHNIQUE: Frontal and lateral views of the chest are obtained. FINDINGS: Left-sided chest tube has been removed. Minimal apical pneumothorax is present. Pleural pa renchymal changes are similar to prior exam. Heart remains enlarged. Patient is post median sternotom y. No sizable effusion evident. Interstitium mildly increased. IMPRESSION: Minimal apical pneumothorax status post chest tube removal. Follow-up recommended.
--- NOTE | 2017-08-06 08:51 | P.PN ---
Subjective Progress Note Date: 08/06/17 Principal diagnosis: Symptomatic multivessel coronary artery disease, non-STEMI, history of known coronary artery disease with prior stenting to his right coronary artery and circumflex coronary artery, morbid obesity, diabetes mellitus type II with preoperative hemoglobin A1c 9.7%, hypertension, hypertriglyceridemia with preoperative triglyceride level 478, osteoarthritis, previous pneumonia, current nicotine dependence with preoperative FEV1 65% of predicted, chronic lumbar back pain, and GERD. POD #4 urgent coronary artery bypass grafting 3 vessels with left internal mammary artery to the left anterior descending coronary artery, reverse greater saphenous vein graft to the diagonal coronary artery, reverse greater saphenous vein grafts to the posterior lateral branch of the right coronary artery. Endoscopic vein harvest of the left greater saphenous vein, intraoperative epi- aortic ultrasound and transesophageal echocardiogram. She is currently sitting up in the recliner in no acute distress. Complains of occasional sternal and back pain, occasional shortness of breath with activity. He has ambulated in the hallway. Complains of not sleeping well last night. Objective - Vital Signs Vital signs: Vital Signs Temp 98.2 F 08/06/17 04:00 Pulse 84 08/06/17 07:00 Resp 25 H 08/06/17 07:00 BP 116/62 08/06/17 07:00 Pulse Ox 96 08/06/17 07:00 Intake & Output 08/05/17 08/06/17 08/06/17 18:59 06:59 18:59 Intake Total 860 360 Output Total 800 1800 Balance 60 -1440 Weight 127 kg 124.8 kg Intake: Oral 860 360 Output: Chest Tube Drainage 50 Left Pleural 50 Urine 750 1800 Other: Voiding Method Urinal Urinal # Voids 1 0 # Bowel Movements 1 ABP, PAP, CO, CI - Last Documented Arterial Blood Pressure 144/66 Pulmonary Artery Pressure 28/17 Cardiac Output 6.5 Cardiac Index 2.8 - Constitutional General appearance: Present: cooperative, no acute distress, obese - Respiratory Details: Lungs sounds diminished bilaterally. Respirations even, nonlabored. Currently on room air with oxygen saturation 97%. Able to achieve 1250 mL on his incentive spirometry. - Cardiovascular Details: S1, S2 present. Regular rate and rhythm, sinus rhythm on telemetry. Sternum stable. Elbow peripheral pulses bilaterally. Bilateral lower extremity edema present. No calf pain or tenderness noted. Heart hugger in place with patient demonstrating appropriate use. Antiembolism stockings, SCDs present. - Gastrointestinal Gastrointestinal Comment(s): Abdomen soft, nontender, nondistended. Active bowel sounds 4 quadrants. Tolerating diet. Positive bowel movement yesterday. - Genitourinary Genitourinary Comment(s): Continues to void clear, yellow urine. - Integumentary Integumentary Comment(s): Skin is warm and dry with evidence of good perfusion. Anterior chest incision well approximated and covered with dry intact dressing. Left lower extremity EVH site well approximated. - Neurologic Neurologic: Present: CNII-XII intact - Musculoskeletal Musculoskeletal: Present: gait normal, strength equal bilaterally - Psychiatric Psychiatric: Present: A&O x's 3, appropriate affect, intact judgment & insight - Allied health notes Allied health notes reviewed: nursing - Labs CBC & Chem 7: 08/06/17 04:37 08/06/17 04:37 Labs: Abnormal Lab Results - Last 24 Hours (Table) 08/05/17 08/05/17 08/05/17 Range/Units 08:39 11:59 17:44 RBC (4.30-5.90) m/uL Hgb (13.0-17.5) gm/dL Hct (39.0-53.0) % Sodium (137-145) mmol/L Potassium (3.5-5.1) mmol/L BUN (9-20) mg/dL Glucose (74-99) mg/dL POC Glucose (mg/dL) 216 H 154 H 183 H (75-99) mg/dL Magnesium (1.6-2.3) mg/dL Total Protein (6.3-8.2) g/dL Albumin (3.5-5.0) g/dL 08/05/17 08/06/17 08/06/17 Range/Units 19:42 01:58 04:37 RBC 2.76 L (4.30-5.90) m/uL Hgb 8.7 L (13.0-17.5) gm/dL Hct 26.3 L (39.0-53.0) % Sodium (137-145) mmol/L Potassium (3.5-5.1) mmol/L BUN (9-20) mg/dL Glucose (74-99) mg/dL POC Glucose (mg/dL) 168 H 210 H (75-99) mg/dL Magnesium (1.6-2.3) mg/dL Total Protein (6.3-8.2) g/dL Albumin (3.5-5.0) g/dL 08/06/17 08/06/17 Range/Units 04:37 06:59 RBC (4.30-5.90) m/uL Hgb (13.0-17.5) gm/dL Hct (39.0-53.0) % Sodium 135 L (137-145) mmol/L Potassium 5.2 H (3.5-5.1) mmol/L BUN 45 H (9-20) mg/dL Glucose 154 H (74-99) mg/dL POC Glucose (mg/dL) 144 H (75-99) mg/dL Magnesium 2.5 H (1.6-2.3) mg/dL Total Protein 4.9 L (6.3-8.2) g/dL Albumin 2.6 L (3.5-5.0) g/dL - Imaging and Cardiology Chest x-ray: report reviewed, image reviewed Assessment and Plan (1) H/O heart artery stent Current Visit: Yes Status: Chronic Code(s): Z95.5 - PRESENCE OF CORONARY ANGIOPLASTY IMPLANT AND GRAFT SNOMED Code(s): 691824331 (2) Morbid obesity with BMI of 40.0-44.9, adult Current Visit: Yes Status: Chronic Code(s): E66.01 - MORBID (SEVERE) OBESITY DUE TO EXCESS CALORIES; Z68.41 - BODY MASS INDEX (BMI) 40.0-44.9, ADULT SNOMED Code(s): 943116215 (3) Non-STEMI (non-ST elevated myocardial infarction) Current Visit: Yes Status: Acute Code(s): I21.4 - NON-ST ELEVATION (NSTEMI) MYOCARDIAL INFARCTION SNOMED Code(s): 787171182 (4) Hypertriglyceridemia Current Visit: Yes Status: Chronic Code(s): E78.1 - PURE HYPERGLYCERIDEMIA SNOMED Code(s): 453037150 (5) Coronary artery disease Current Visit: Yes Status: Chronic Code(s): I25.10 - ATHSCL HEART DISEASE OF [place] CORONARY ARTERY W/O ANG PCTRS SNOMED Code(s): 23347859 (6) Diabetes mellitus type 2 in obese Current Visit: Yes Status: Chronic Code(s): E11.69 - TYPE 2 DIABETES MELLITUS WITH OTHER SPECIFIED COMPLICATION; E66.9 - OBESITY, UNSPECIFIED SNOMED Code(s): 14181624 (7) GERD (gastroesophageal reflux disease) Current Visit: Yes Status: Chronic Code(s): K21.9 - GASTRO-ESOPHAGEAL REFLUX DISEASE WITHOUT ESOPHAGITIS SNOMED Code(s): 703026728 (8) History of pneumonia Current Visit: No Status: Resolved Code(s): Z87.01 - PERSONAL HISTORY OF PNEUMONIA (RECURRENT) SNOMED Code(s): 577635568 (9) Hypertension Current Visit: Yes Status: Chronic Code(s): I10 - ESSENTIAL (PRIMARY) HYPERTENSION SNOMED Code(s): 80788713 (10) Nicotine dependence Current Visit: Yes Status: Chronic Code(s): F17.200 - NICOTINE DEPENDENCE, UNSPECIFIED, UNCOMPLICATED SNOMED Code(s): 07017106 Plan: 1. Continue aspirin, statin, Plavix, subcu heparin, beta kayla. Will increase beta kayla therapy as tolerated. 2. Lisinopril discontinued secondary to hypotension. Not indicated as EF > 40% . 3. Encourage incentive spirometry use 10 times every hour. 4. Encourage smoking cessation. 5. Increase activity, ambulate in hallway. PT/OT/cardiac rehab following. 6. GI/DVT prophylaxis. 7. Continue CIWA protocol. Monitor for signs of DTs. 8. Diabetic management per Dr. Soriano's service. 9. Will monitor daily labs and chest x-rays. 10. May transfer to [facility] if bed becomes available. 11. Discharge planning in progress. May discharge to inpatient rehab today if bed available Time with Patient: Greater than 30
[2017-08-06] MEDS: LISINOPRIL 5 MG TAB PO SCH (09:36)
--- NOTE | 2017-08-06 10:01 | P.PN ---
Subjective Progress Note Date: 08/06/17 On 08/03/2017, the patient is postop day #1 following coronary to bypass surgery. The patient underwent three-vessel bypass with MOALLEY to LAD, saphenous vein graft to diagonal, posterior lateral branch of RCA. The patient came into the intensive care unit intubated on a mechanical ventilator. Within 6 hours of arrival, the patient was weaned off the mechanical ventilator and the patient was extubated without any major difficulties. The patient is awake and alert this morning sitting up on a chair. The patient has a adequate hemodynamic with adequate cardiac output index. The Phoenix-Jt catheter will be removed. The chest x-ray shows small better pleural effusion and the chest tubes are all in good location. The patient was having some issues with hypertension. He was briefly placed on Cleviprex which was discontinued. Currently the patient is on nitroglycerin at 5 mcg/m. The patient is also on Lopressor this will be started this morning. He is afebrile. He is having adequate pain control. Sternum stable clean and intact. No change in mental status. He is following commands and answering questions appropriately. His underlying rhythm is sinus. His hemoglobin is at 11.4. The chest tube output from the left was 165 mL during this last shift and from the mediastinum is down 96 and mouth for the next shift. The patient's body weight is 121 kg. He will be encouraged to use the incentive spirometer. No other significant events overnight. On 08/04/2017 I'm seeing this patient for a follow-up. The patient is postop day #2. He is sitting up on a chair. He has still mediastinal chest tubes and a left pleural chest tube. This sometimes will be removed today 9 and output has been low. The patient remains hemodynamic is stable. The patient is off the nitroglycerin drip. The patient is maintaining his own blood pressure. Slightly tachycardic and we have made suggestions to increase the metoprolol to 50 mg by mouth twice a day. He is also on 5 mg of lisinopril for blood pressure control. He is on insulin drip which will be switched to Lantus insulin. He is taking 40 units of insulin drip on an hourly basis. He is tolerating his diet. No nausea or vomiting. Sternum stable clean and intact. Hemodynamically stable. He is in a sinus rhythm. He mentions that no cold is giving him side effects and the hives made recommendations to switch him to Tylenol 3 for pain control. He is doing well. No other significant events over the past 24 hours. Neurologically awake and alert. On 08/05/2017 I'm seeing this patient for a follow-up and is postop day #3. The mediastinal tubes have been removed. The patient has a left pleural chest tube and output of which is minimal and can be taken out. He is hemodynamically stable. His pain is under good control with Tylenol threes. His blood sugar needs to be further adjusted knowing that the patient is still having some limited blood sugar elevation and I will suggest increasing the Lantus dose at baseline. No altered mentation. No agitation. He is requesting a Xanax to help him with sleep at nighttime. Otherwise, he is hemodynamically stable and there has been no other significant events over the past 24 hours. On 08/06/2017 the patient is postop day #4. The patient is doing extremely well from the hemodynamic standpoint. Chest tubes have been removed. Pacemaker wires have been removed. The patient had a chest x-ray this morning that showed some cardiomegaly and limited left basilar atelectasis and small effusions. Otherwise the right lung is clear. The patient is on room air. He is having some issues with sleeping. Earlier this morning he was also found to have some early signs of delirium tremens and he was given a milligram of Ativan. He is not able to sleep well overnight. He feels a bit lethargic today and resolving some morning headaches. No change in mental status. No hallucinations. No delusions. No focal neurological deficits. Pupils are equal and reactive to light. No seizure activity. He is able to ambulate. His pulling approximately 1500 on his incentive spirometer. The patient has adequate pain control. He is on Tylenol 3. Sternum stable clean and intact. No other significant events overnight. Objective - Vital Signs Vital signs: Vital Signs Temp 98.3 F 08/06/17 08:00 Pulse 93 08/06/17 08:00 Resp 22 08/06/17 08:00 BP 114/66 08/06/17 09:00 Pulse Ox 98 08/06/17 08:00 Intake & Output 08/05/17 08/06/17 08/06/17 18:59 06:59 18:59 Intake Total 860 360 Output Total 800 1800 Balance 60 -1440 Weight 127 kg 124.8 kg Intake: Oral 860 360 Output: Chest Tube Drainage 50 Left Pleural 50 Urine 750 1800 Other: Voiding Method Urinal Urinal # Voids 1 0 0 # Bowel Movements 1 ABP, PAP, CO, CI - Last Documented Arterial Blood Pressure 144/66 Pulmonary Artery Pressure 28/17 Cardiac Output 6.5 Cardiac Index 2.8 - Exam - Constitutional General appearance: Present: cooperative, no acute distress, obese - EENT ENT: Present: hearing grossly normal - Neck Details: Neck is supple, no JVD, no lymphadenopathy. - Respiratory Details: Lungs sounds essentially clear throughout, diminished his bilateral bases. He sent her chest tubes have been removed. - Cardiovascular Details: Regular rhythm and rate. S1 and S2 present, negative for S3, gallop or murmur. Sternum is stable. - Gastrointestinal Gastrointestinal Comment(s): Abdomen is soft, nontender and nondistended. Obese. Active bowel sounds all 4 abdominal quadrants. Tolerating oral intake. Passing flatus. - Genitourinary Genitourinary Comment(s): Weinberg catheter is out - Integumentary Integumentary Comment(s): Skin is warm and dry. No clubbing or cyanosis present. Midline sternal incision clean dry and well approximated. No drainage or redness present. Dermabond dressing clean and dry. Left leg EVH site clean dry and approximated. No drainage or redness present. - Neurologic Neurologic: Present: CNII-XII intact - Musculoskeletal Musculoskeletal: Present: gait normal, strength equal bilaterally - Psychiatric Psychiatric: Present: A&O x's 3, appropriate affect, intact judgment & insight - Labs CBC & Chem 7: 08/06/17 04:37 08/06/17 04:37 Labs: Abnormal Lab Results - Last 24 Hours (Table) 08/05/17 08/05/17 08/05/17 Range/Units 11:59 17:44 19:42 RBC (4.30-5.90) m/uL Hgb (13.0-17.5) gm/dL Hct (39.0-53.0) % Sodium (137-145) mmol/L Potassium (3.5-5.1) mmol/L BUN (9-20) mg/dL Glucose (74-99) mg/dL POC Glucose (mg/dL) 154 H 183 H 168 H (75-99) mg/dL Magnesium (1.6-2.3) mg/dL Total Protein (6.3-8.2) g/dL Albumin (3.5-5.0) g/dL 08/06/17 08/06/17 08/06/17 Range/Units 01:58 04:37 04:37 RBC 2.76 L (4.30-5.90) m/uL Hgb 8.7 L (13.0-17.5) gm/dL Hct 26.3 L (39.0-53.0) % Sodium 135 L (137-145) mmol/L Potassium 5.2 H (3.5-5.1) mmol/L BUN 45 H (9-20) mg/dL Glucose 154 H (74-99) mg/dL POC Glucose (mg/dL) 210 H (75-99) mg/dL Magnesium 2.5 H (1.6-2.3) mg/dL Total Protein 4.9 L (6.3-8.2) g/dL Albumin 2.6 L (3.5-5.0) g/dL 08/06/17 Range/Units 06:59 RBC (4.30-5.90) m/uL Hgb (13.0-17.5) gm/dL Hct (39.0-53.0) % Sodium (137-145) mmol/L Potassium (3.5-5.1) mmol/L BUN (9-20) mg/dL Glucose (74-99) mg/dL POC Glucose (mg/dL) 144 H (75-99) mg/dL Magnesium (1.6-2.3) mg/dL Total Protein (6.3-8.2) g/dL Albumin (3.5-5.0) g/dL Assessment and Plan Plan: Assessment: #1. Symptomatic coronary artery disease, status post artery artery bypass grafting, 3 with OMALLEY to LAD, SVG to the Susan, and SVG to the posterior branch of the RCA, postop day 4 #2. History of coronary artery disease, with prior stenting of the circumflex artery and prior history of myocardial infarction #3. Diabetes mellitus type 2, currently on Levemir insulin 25 units daily. The patient is also on NovoLog 10 units 3 times a day. #4. Nicotine dependence, ongoing #5. Daily alcohol intake, patient drinks around a pint of Rum a day #6. Hyperlipidemia, hypertension #7. GERD/reflux #8. Chronic lumbar pain #9. Osteoarthritis #10. History of nephrolithiasis Plan Patient is a selective overflow. Increased level of activity as tolerated. Watch for any signs of delirium tremens. Hemodynamically stable. Monitor blood sugars. Transfer this patient out of the intensive care unit was resumed that available.
[2017-08-06 11:33] LABS: Glucose,Whole Blood 186 mg/dL (75-99)
[2017-08-06] MEDS: THIAMINE 100 MG TAB PO SCH ×2 (11:34→17:27)
[2017-08-06] MEDS: MULTIVITAMINS, THERA 1 EACH TAB PO SCH (11:34)
[2017-08-06] MEDS: FOLIC ACID 1 MG TAB PO SCH (11:34)
[2017-08-06] MEDS ORDERED: MECLIZINE 12.5 MG TAB PO PRN (13:16)
--- NOTE | 2017-08-06 15:05 | CT ---
EXAMINATION TYPE: CT brain wo con DATE OF EXAM: 08/06/2017 COMPARISON: 04/03/2015 HISTORY: Vertigo. CT DLP: 1047.[address] of the brain was performed. The ventricles, basal cisterns and sulci overlying the cerebral convexities demonstrate a normal appe arance. There is no evidence for intracranial hemorrhage or sulcal effacement. No mass effects are seen. Osseous calvarium is intact. If symptoms persist consider MRI as clinically warranted. IMPRESSION: 1. No acute intracranial process is seen at this time.
--- NOTE | 2017-08-06 15:38 | P.PN ---
Subjective Progress Note Date: 08/06/17 This is a 47-year-old gentleman who is status post coronary artery bypass grafting surgery, patient underwent three-vessel bypass with a OMALLEY to the LAD, saphenous vein graft to the diagonal, posterior lateral branch of the RCA. He was seen and examined in the intensive care unit this morning. Denies any chest pain, breathing overall has been stable. He does complain of a headache which she states he's had for the past day and a half with associated dizziness. He also states that he has not been sleeping well. Patient was going through some DVTs and was given Ativan. Blood pressure 114/66 with a heart rate in the 90s. White blood cell count 7.1, hemoglobin 8.7, platelet count 152. Sodium 135, potassium 5.2 BUN 45, creatinine 1.2. Objective - Vital Signs Vital signs: Vital Signs Temp 98.6 F 08/06/17 11:23 Pulse 90 08/06/17 11:23 Resp 22 08/06/17 11:23 BP 143/100 08/06/17 11:23 Pulse Ox 94 L 08/06/17 11:23 Intake & Output 08/05/17 08/06/17 08/06/17 18:59 06:59 18:59 Intake Total 860 360 Output Total 800 1800 Balance 60 -1440 Weight 127 kg 124.8 kg Intake: Oral 860 360 Output: Chest Tube Drainage 50 Left Pleural 50 Urine 750 1800 Other: Voiding Method Urinal Urinal # Voids 1 0 0 # Bowel Movements 1 ABP, PAP, CO, CI - Last Documented Arterial Blood Pressure 144/66 Pulmonary Artery Pressure 28/17 Cardiac Output 6.5 Cardiac Index 2.8 - Exam PHYSICAL EXAMINATION: HEENT: Head is atraumatic, normocephalic. Pupils equal, round. Neck is supple. There is no elevated jugular venous pressure. HEART EXAMINATION: Heart S1, S2 normal. No murmur or gallop heard. CHEST EXAMINATION: lungs reveal diminished air entry to bilateral bases. ABDOMEN: Soft, nontender. Bowel sounds are heard. No organomegaly noted. EXTREMITIES: 2+ peripheral pulses with no evidence of peripheral edema and no calf tenderness noted. NEUROLOGIC patient is awake, alert and oriented -3. Complaining of mild dizziness and associated headache . - Labs CBC & Chem 7: 08/06/17 04:37 08/06/17 04:37 Labs: Abnormal Lab Results - Last 24 Hours (Table) 08/05/17 08/05/17 08/06/17 Range/Units 17:44 19:42 01:58 RBC (4.30-5.90) m/uL Hgb (13.0-17.5) gm/dL Hct (39.0-53.0) % Sodium (137-145) mmol/L Potassium (3.5-5.1) mmol/L BUN (9-20) mg/dL Glucose (74-99) mg/dL POC Glucose (mg/dL) 183 H 168 H 210 H (75-99) mg/dL Magnesium (1.6-2.3) mg/dL Total Protein (6.3-8.2) g/dL Albumin (3.5-5.0) g/dL 08/06/17 08/06/17 08/06/17 Range/Units 04:37 04:37 06:59 RBC 2.76 L (4.30-5.90) m/uL Hgb 8.7 L (13.0-17.5) gm/dL Hct 26.3 L (39.0-53.0) % Sodium 135 L (137-145) mmol/L Potassium 5.2 H (3.5-5.1) mmol/L BUN 45 H (9-20) mg/dL Glucose 154 H (74-99) mg/dL POC Glucose (mg/dL) 144 H (75-99) mg/dL Magnesium 2.5 H (1.6-2.3) mg/dL Total Protein 4.9 L (6.3-8.2) g/dL Albumin 2.6 L (3.5-5.0) g/dL 08/06/17 Range/Units 11:28 RBC (4.30-5.90) m/uL Hgb (13.0-17.5) gm/dL Hct (39.0-53.0) % Sodium (137-145) mmol/L Potassium (3.5-5.1) mmol/L BUN (9-20) mg/dL Glucose (74-99) mg/dL POC Glucose (mg/dL) 186 H (75-99) mg/dL Magnesium (1.6-2.3) mg/dL Total Protein (6.3-8.2) g/dL Albumin (3.5-5.0) g/dL Assessment and Plan Plan: Assessment and plan #1 status post coronary artery bypass grafting surgery #2 known history of coronary artery disease with prior stent placement #3 diabetes #4 nicotine dependence #5 hypertension #6 hyperlipidemia #7 symptoms of dizziness and headache, CT of the brain ordered #8 daily alcohol intake, status post DTs Plan From cardiology's perspective, we will continue the patient on his current medications. He will be transferred out to the telemetry unit when a bed is available. DNP note has been reviewed, I agree with a documented findings and plan of care. Patient was seen and examined.
[2017-08-06 16:30] LABS: Glucose,Whole Blood 199 mg/dL (75-99)
--- NOTE | 2017-08-06 19:33 | P.CNNES ---
History of Present Illness Consult date: 08/06/17 Reason for Consult: Patient s/p CABG now with dizziness and blurred vision. History of Present Illness: This patient is a 47-year-old right-handed white male who recently underwent coronary artery bypass graft surgery with three-vessel bypass surgery. Surgery was done by Dr. Baron. Patient is postoperative day #4 today following his bypass surgery and was transferred out of the intensive care unit to the medical floor. Apparently today he was complaining of symptoms of dizziness as well as blurring of vision in both eyes. The symptoms according to the patient were present even before surgery. Due to the changes he was sent for a computed tomography scan of the brain this afternoon which revealed no acute intracranial process. Patient has a hard time describing his exact sensation of dizziness but states he feels as if he is in motion. He tends to keep his eyes closed to avoid the symptoms. He also complained of mild headache which has since resolved after being given Tylenol for this. Patient denies any previous history of TIA or stroke. As noted CAT scan of the brain was negative. Patient states he has been having blurred vision even prior to his surgery. His dizziness also has been long-standing but he has a hard time describing the exact symptoms. His neurological examination at bedside today fails to reveal any evidence of horizontal or vertical nystagmus. He does have blurring of vision and is unable to read at the hands distance. We are recommending that ophthalmology evaluate the patient for this condition. As noted this CAT scan of the brain was negative for any acute changes. We are recommending MRI of the brain for further evaluation. We recommend place patient on Antivert 12.5 mg twice a day. This should be scheduled dosing for him to see if this helps with some of the symptoms of dizziness and vertigo. His neurological examination otherwise seems to be nonfocal. We will continue close neurological follow-up for the patient. He does have a history of alcohol abuse and should be closely monitored for impending DTs as well. At this time there does not appear to be any evidence for acute stroke. He does have slight facial asymmetry on the right and for this reason we are recommending MRI of the brain. So overall prognosis at this time remains very guarded. Review of Systems Constitutional: Denies chills, Denies fever Eyes: denies blurred vision, denies pain Ears, nose, mouth and throat: Denies headache, Denies sore throat Cardiovascular: Denies chest pain, Denies shortness of breath Respiratory: Denies cough Gastrointestinal: Denies abdominal pain, Denies diarrhea, Denies nausea, Denies vomiting Musculoskeletal: Denies myalgias Integumentary: Denies pruritus, Denies rash Neurological: Reports change in mentation, Reports confusion, Reports double vision, Reports loss of vision, Reports paresthesias, Reports vertigo, Denies numbness, Denies weakness Psychiatric: Denies anxiety, Denies depression Endocrine: Denies fatigue, Denies weight change Past Medical History Past Medical History: Coronary Artery Disease (CAD), Diabetes Mellitus, GERD/ Reflux, Hyperlipidemia, Hypertension, Myocardial Infarction ([place]), Osteoarthritis (OA), Pneumonia, Renal Disease Additional Past Medical History / Comment(s): NIDDM type II, chronic lumbar pain , colitis, athrtitis bilateral hands/wrists, nephrolithiasis. Last Myocardial Infarction Date:: 11/02/16 History of Any Multi-Drug Resistant Organisms: None Reported Past Surgical History: Heart Catheterization With Stent, Orthopedic Surgery Additional Past Surgical History / Comment(s): 11/02/16 PCI with stent to RCA, kidney stone basketing, failed L4-L5 fusions x 2, colonoscopy. Past Anesthesia/Blood Transfusion Reactions: No Reported Reaction Date of Last Stent Placement:: 11/02/16 Past Psychological History: No Psychological Hx Reported Additional Psychological History / Comment(s): Pt resides with his spouse. He is independent. He has a glucometer but no lancets or strips. Smoking Status: Former smoker Past Alcohol Use History: Daily Additional Past Alcohol Use History / Comment(s): Pt started smoking at the age of 17 yrs (1986) and depending on the day, he can smoke upwards to 1 PPD. He drinks alcohol daily-used to drink 1 pint a day of rum but states he has recently cut way back and some days doesn't drink at all. Past Drug Use History: None Reported - Past Family History Father Family Medical History: Congestive Heart Failure (CHF), Coronary Artery Disease (CAD), CVA/TIA, Myocardial Infarction ([place]) Additional Family Medical History / Comment(s): Father at the age of 63 yrs. Pt doesn't recall age of father's [place]. Mother Family Medical History: Cancer Additional Family Medical History / Comment(s): Mother had multiple cancers. She is living. Medications and Allergies Home Medications Medication Instructions Recorded Confirmed Type Atorvastatin [Lipitor] 80 mg PO HS #30 tab 11/08/16 07/28/17 Rx HYDROcodone/APAP 10-325MG [[place] 1 - 2 tab PO Q6H PRN 12/06/16 07/28/17 History 10-325] Multivitamins, Thera [Multivitamin 1 tab PO DAILY 12/06/16 07/28/17 History (formulary)] Clopidogrel [Plavix] 75 mg PO DAILY #30 tablet 12/07/16 07/28/17 Rx Aspirin EC [Ecotrin Low Dose] 81 mg PO DAILY 02/16/17 07/28/17 History Fish Oil/Dha/Epa [Fish Oil 1,200 1 cap PO DAILY 02/16/17 07/28/17 History mg Fish Oil] Metoprolol Tartrate [Lopressor] 50 mg PO BID 02/16/17 07/28/17 History Nitroglycerin Sl Tabs [Nitrostat] 0.4 mg SUBLINGUAL Q5M PRN #25 tab 02/18/17 Rx metFORMIN HCL [Glucophage] 1,000 mg PO BID #60 tab 02/18/17 07/28/17 Rx Glimepiride [Amaryl] 2 mg PO BID 07/28/17 07/28/17 History Lisinopril [Prinivil] 5 mg PO DAILY 07/28/17 07/28/17 History Ranitidine HCl 150 mg PO BID 07/28/17 07/28/17 History Allergies Allergy/AdvReac Type Severity Reaction Status Date / Time No Known Allergies Allergy Verified 07/28/17 21:28 Physical Examination - Vital Signs Vital Signs: Vital Signs Temp Pulse Pulse Resp BP BP BP 08/06/17 16:00 97.8 F 76 16 110/58 08/06/17 15:50 76 08/06/17 11:23 98.6 F 90 20 143/100 08/06/17 09:00 114/66 08/06/17 08:00 98.3 F 93 22 114/66 08/06/17 07:00 84 25 H 116/62 08/06/17 06:00 89 20 103/67 08/06/17 05:00 85 20 103/67 08/06/17 04:00 98.2 F 82 19 94/56 08/06/17 03:03 20 08/06/17 03:00 80 20 86/57 08/06/17 02:00 81 20 94/58 08/06/17 01:00 88 20 112/73 08/06/17 00:00 98.2 F 93 20 112/62 08/05/17 23:03 23 08/05/17 23:02 90 21 120/65 08/05/17 23:00 91 23 120/65 08/05/17 22:00 90 20 92/62 08/05/17 21:00 92 21 102/65 08/05/17 20:00 98.4 F 98 20 106/60 08/05/17 19:54 29 H Pulse Ox 08/06/17 16:00 100 08/06/17 15:50 08/06/17 11:23 94 L 08/06/17 09:00 08/06/17 08:00 98 08/06/17 07:00 96 08/06/17 06:00 97 08/06/17 05:00 97 08/06/17 04:00 97 08/06/17 03:03 08/06/17 03:00 95 08/06/17 02:00 95 08/06/17 01:00 93 L 08/06/17 00:00 98 08/05/17 23:03 08/05/17 23:02 98 08/05/17 23:00 98 08/05/17 22:00 97 08/05/17 21:00 99 08/05/17 20:00 96 08/05/17 19:54 Intake and Output 08/06/17 08/06/17 08/06/17 06:59 14:59 22:59 Output Total 1800 Balance -1800 Output: Urine 1800 Other: Voiding Method Urinal Urinal # Voids 0 0 Weight 124.8 kg - Constitutional General appearance: average body habitus, cooperative - EENT EENT: PERRL, mucous membranes moist - Respiratory Respiratory: lungs clear, normal breath sounds - Cardiovascular Cardiovascular: regular rate, normal S1, normal S2 Extremities: no peripheral edema bilaterally - Gastrointestinal Gastrointestinal: normoactive bowel sounds - Integumentary Integumentary: normal - Neurologic Cranial nerve examination: PERRL, EOMI, VFF, V1/V2/V3 grossly intact, face symmetric, tongue midline, intact gag reflex, intact corneal reflex, facial droop (Patient has right-sided facial asymmetry.), normal palatal elevation Speech examination: intact Sensorimotor examination: intact Motor examination - right side: 4/5: biceps, triceps, wrist flexion, wrist extension, information and data architect analyst, hip flexors, knee extensors, dorsiflexion, toe extension (EHL) , plantarflexion Motor examination - left side: 4/5: biceps, triceps, wrist flexion, wrist extension, information and data architect analyst, hip flexors, knee extensors, dorsiflexion, toe extension (EHL) , plantarflexion Detailed sensory examination: intact Reflex and gait examination: intact Reflexes: 1+: ankle, bicep, knee, tricep - Musculoskeletal Musculoskeletal: no pain - Psychiatric Psychiatric: mood/affect appropriate, cooperative Results - Laboratory Findings CBC and BMP: 08/06/17 04:37 08/06/17 04:37 Abnormal Lab Findings: Abnormal Labs 07/28/17 07/28/17 07/28/17 21:05 21:05 21:05 WBC RBC Hgb Hct Plt Count 135 L Neutrophils # Lymphocytes # Monocytes # ABG pH ABG pCO2 ABG pO2 ABG HCO3 ABG Total CO2 ABG O2 Saturation ABG Hematocrit ABG Sodium ABG Potassium ABG Ionized Calcium ABG Glucose Hemoglobin Sodium Potassium Chloride Carbon Dioxide BUN Glucose 240 H POC Glucose (mg/dL) Hemoglobin A1c Calcium Magnesium 1.4 L AST 67 H ALT 202 H Alkaline Phosphatase 148 H Total Creatine Kinase Troponin I 0.044 H* Total Protein 6.2 L Albumin Triglycerides Lipase Arterial Blood Potassium Arterial Blood Glucose Urine Protein Urine Glucose (UA) Urine Blood Urine Mucus Urine Opiates Screen Crossmatch 07/28/17 07/29/17 07/29/17 21:05 01:49 01:49 WBC RBC Hgb Hct Plt Count Neutrophils # Lymphocytes # Monocytes # ABG pH ABG pCO2 ABG pO2 ABG HCO3 ABG Total CO2 ABG O2 Saturation ABG Hematocrit ABG Sodium ABG Potassium ABG Ionized Calcium ABG Glucose Hemoglobin Sodium Potassium Chloride Carbon Dioxide BUN Glucose POC Glucose (mg/dL) Hemoglobin A1c 9.7 H Calcium Magnesium AST ALT Alkaline Phosphatase Total Creatine Kinase 46 L Troponin I 0.035 H* Total Protein Albumin Triglycerides Lipase 303 H Arterial Blood Potassium Arterial Blood Glucose Urine Protein Urine Glucose (UA) Urine Blood Urine Mucus Urine Opiates Screen Crossmatch 03/07/29/17 07/29/17 05:17 05:17 05:38 WBC RBC 3.98 L Hgb Hct 37.4 L Plt Count 124 L Neutrophils # Lymphocytes # Monocytes # ABG pH ABG pCO2 ABG pO2 ABG HCO3 ABG Total CO2 ABG O2 Saturation ABG Hematocrit ABG Sodium ABG Potassium ABG Ionized Calcium ABG Glucose Hemoglobin Sodium 136 L Potassium Chloride Carbon Dioxide BUN 23 H Glucose 222 H POC Glucose (mg/dL) 236 H Hemoglobin A1c Calcium Magnesium AST ALT 147 H Alkaline Phosphatase 128 H Total Creatine Kinase Troponin I Total Protein 5.1 L Albumin 2.9 L Triglycerides 478 H Lipase Arterial Blood Potassium Arterial Blood Glucose Urine Protein Urine Glucose (UA) Urine Blood Urine Mucus Urine Opiates Screen Crossmatch 07/29/17 07/29/17 07/29/17 11:07 11:07 11:12 WBC RBC 4.07 L Hgb Hct 38.5 L Plt Count 126 L Neutrophils # Lymphocytes # Monocytes # ABG pH ABG pCO2 ABG pO2 ABG HCO3 ABG Total CO2 ABG O2 Saturation ABG Hematocrit ABG Sodium ABG Potassium ABG Ionized Calcium ABG Glucose Hemoglobin Sodium Potassium Chloride Carbon Dioxide BUN Glucose POC Glucose (mg/dL) 142 H Hemoglobin A1c Calcium Magnesium AST ALT Alkaline Phosphatase Total Creatine Kinase 46 L Troponin I Total Protein Albumin Triglycerides Lipase Arterial Blood Potassium Arterial Blood Glucose Urine Protein Urine Glucose (UA) Urine Blood Urine Mucus Urine Opiates Screen Crossmatch 07/29/17 07/29/17 07/29/17 16:03 21:08 21:15 WBC RBC Hgb Hct Plt Count Neutrophils # Lymphocytes # Monocytes # ABG pH ABG pCO2 ABG pO2 ABG HCO3 ABG Total CO2 ABG O2 Saturation ABG Hematocrit ABG Sodium ABG Potassium ABG Ionized Calcium ABG Glucose Hemoglobin Sodium Potassium Chloride Carbon Dioxide BUN Glucose POC Glucose (mg/dL) 253 H 196 H Hemoglobin A1c Calcium Magnesium AST ALT Alkaline Phosphatase Total Creatine Kinase Troponin I Total Protein Albumin Triglycerides Lipase Arterial Blood Potassium Arterial Blood Glucose Urine Protein 2+ H Urine Glucose (UA) 4+ H Urine Blood Small H Urine Mucus Rare H Urine Opiates Screen Detected H Crossmatch 07/30/17 07/30/17 07/30/17 02:15 02:15 06:07 WBC RBC 3.96 L Hgb 12.7 L Hct 37.1 L Plt Count 121 L Neutrophils # Lymphocytes # Monocytes # ABG pH ABG pCO2 ABG pO2 ABG HCO3 ABG Total CO2 ABG O2 Saturation ABG Hematocrit ABG Sodium ABG Potassium ABG Ionized Calcium ABG Glucose Hemoglobin Sodium Potassium Chloride Carbon Dioxide BUN 23 H Glucose 204 H POC Glucose (mg/dL) 182 H Hemoglobin A1c Calcium Magnesium AST ALT 112 H Alkaline Phosphatase Total Creatine Kinase Troponin I Total Protein 5.4 L Albumin 3.1 L Triglycerides Lipase Arterial Blood Potassium Arterial Blood Glucose Urine Protein Urine Glucose (UA) Urine Blood Urine Mucus Urine Opiates Screen Crossmatch 07/30/17 07/30/17 07/30/17 11:37 16:58 20:57 WBC RBC Hgb Hct Plt Count Neutrophils # Lymphocytes # Monocytes # ABG pH ABG pCO2 ABG pO2 ABG HCO3 ABG Total CO2 ABG O2 Saturation ABG Hematocrit ABG Sodium ABG Potassium ABG Ionized Calcium ABG Glucose Hemoglobin Sodium Potassium Chloride Carbon Dioxide BUN Glucose POC Glucose (mg/dL) 229 H 200 H 264 H Hemoglobin A1c Calcium Magnesium AST ALT Alkaline Phosphatase Total Creatine Kinase Troponin I Total Protein Albumin Triglycerides Lipase Arterial Blood Potassium Arterial Blood Glucose Urine Protein Urine Glucose (UA) Urine Blood Urine Mucus Urine Opiates Screen Crossmatch 07/31/17 07/31/17 07/31/17 06:00 06:00 06:02 WBC RBC 3.82 L Hgb 12.4 L Hct 36.1 L Plt Count 112 L Neutrophils # Lymphocytes # Monocytes # ABG pH ABG pCO2 ABG pO2 ABG HCO3 ABG Total CO2 ABG O2 Saturation ABG Hematocrit ABG Sodium ABG Potassium ABG Ionized Calcium ABG Glucose Hemoglobin Sodium Potassium Chloride Carbon Dioxide BUN Glucose 179 H POC Glucose (mg/dL) 180 H Hemoglobin A1c Calcium Magnesium AST ALT 84 H Alkaline Phosphatase Total Creatine Kinase Troponin I Total Protein 5.3 L Albumin 3.0 L Triglycerides Lipase Arterial Blood Potassium Arterial Blood Glucose Urine Protein Urine Glucose (UA) Urine Blood Urine Mucus Urine Opiates Screen Crossmatch 07/31/17 07/31/17 07/31/17 12:24 16:45 20:53 WBC RBC Hgb Hct Plt Count Neutrophils # Lymphocytes # Monocytes # ABG pH ABG pCO2 ABG pO2 ABG HCO3 ABG Total CO2 ABG O2 Saturation ABG Hematocrit ABG Sodium ABG Potassium ABG Ionized Calcium ABG Glucose Hemoglobin Sodium Potassium Chloride Carbon Dioxide BUN Glucose POC Glucose (mg/dL) 182 H 204 H 239 H Hemoglobin A1c Calcium Magnesium AST ALT Alkaline Phosphatase Total Creatine Kinase Troponin I Total Protein Albumin Triglycerides Lipase Arterial Blood Potassium Arterial Blood Glucose Urine Protein Urine Glucose (UA) Urine Blood Urine Mucus Urine Opiates Screen Crossmatch 08/01/17 08/01/17 08/01/17 05:45 06:25 06:25 WBC RBC 3.80 L Hgb 11.8 L Hct 36.6 L Plt Count 106 L Neutrophils # Lymphocytes # Monocytes # ABG pH ABG pCO2 ABG pO2 ABG HCO3 ABG Total CO2 ABG O2 Saturation ABG Hematocrit ABG Sodium ABG Potassium ABG Ionized Calcium ABG Glucose Hemoglobin Sodium Potassium Chloride Carbon Dioxide BUN Glucose POC Glucose (mg/dL) 240 H Hemoglobin A1c Calcium Magnesium AST ALT Alkaline Phosphatase Total Creatine Kinase Troponin I Total Protein Albumin Triglycerides Lipase Arterial Blood Potassium Arterial Blood Glucose Urine Protein Urine Glucose (UA) Urine Blood Urine Mucus Urine Opiates Screen Crossmatch See Detail 08/01/17 08/01/17 08/01/17 06:25 11:37 16:54 WBC RBC Hgb Hct Plt Count Neutrophils # Lymphocytes # Monocytes # ABG pH ABG pCO2 ABG pO2 ABG HCO3 ABG Total CO2 ABG O2 Saturation ABG Hematocrit ABG Sodium ABG Potassium ABG Ionized Calcium ABG Glucose Hemoglobin Sodium Potassium Chloride Carbon Dioxide BUN Glucose 218 H POC Glucose (mg/dL) 123 H 190 H Hemoglobin A1c Calcium Magnesium AST ALT 102 H Alkaline Phosphatase Total Creatine Kinase Troponin I Total Protein 5.4 L Albumin 3.1 L Triglycerides Lipase Arterial Blood Potassium Arterial Blood Glucose Urine Protein Urine Glucose (UA) Urine Blood Urine Mucus Urine Opiates Screen Crossmatch 08/01/17 08/02/17 08/02/17 20:48 05:39 05:39 WBC RBC Hgb Hct Plt Count 126 L Neutrophils # Lymphocytes # Monocytes # ABG pH ABG pCO2 ABG pO2 ABG HCO3 ABG Total CO2 ABG O2 Saturation ABG Hematocrit ABG Sodium ABG Potassium ABG Ionized Calcium ABG Glucose Hemoglobin Sodium Potassium Chloride Carbon Dioxide 31 H BUN 21 H Glucose 215 H POC Glucose (mg/dL) 159 H Hemoglobin A1c Calcium Magnesium AST ALT 111 H Alkaline Phosphatase Total Creatine Kinase Troponin I Total Protein Albumin Triglycerides Lipase Arterial Blood Potassium Arterial Blood Glucose Urine Protein Urine Glucose (UA) Urine Blood Urine Mucus Urine Opiates Screen Crossmatch 08/02/17 08/02/17 08/02/17 05:47 08:38 10:20 WBC RBC Hgb Hct Plt Count Neutrophils # Lymphocytes # Monocytes # ABG pH ABG pCO2 46 H ABG pO2 133 H ABG HCO3 28 H 27 H ABG Total CO2 29 H 28 H ABG O2 Saturation 99.4 H 98.3 H ABG Hematocrit ABG Sodium ABG Potassium 4.7 H 4.6 H ABG Ionized Calcium ABG Glucose 163 H 164 H Hemoglobin 12.7 L 11.6 L Sodium Potassium Chloride Carbon Dioxide BUN Glucose POC Glucose (mg/dL) 218 H Hemoglobin A1c Calcium Magnesium AST ALT Alkaline Phosphatase Total Creatine Kinase Troponin I Total Protein Albumin Triglycerides Lipase Arterial Blood Potassium 4.7 H 4.6 H Arterial Blood Glucose 163 H 164 H Urine Protein Urine Glucose (UA) Urine Blood Urine Mucus Urine Opiates Screen Crossmatch 08/02/17 08/02/17 08/02/17 11:18 11:39 12:23 WBC RBC Hgb Hct Plt Count Neutrophils # Lymphocytes # Monocytes # ABG pH ABG pCO2 49 H ABG pO2 292 H 204 H 327 H ABG HCO3 27 H 27 H 26 H ABG Total CO2 29 H 28 H 27 H ABG O2 Saturation 100.0 H 100.0 H 100.0 H ABG Hematocrit 25 L 26 L 26 L ABG Sodium 134 L ABG Potassium 5.2 H 6.2 H* 6.0 H ABG Ionized Calcium 4.4 L 4.4 L 4.4 L ABG Glucose 228 H 249 H 248 H Hemoglobin 8.3 L 8.4 L 8.3 L Sodium Potassium Chloride Carbon Dioxide BUN Glucose POC Glucose (mg/dL) Hemoglobin A1c Calcium Magnesium AST ALT Alkaline Phosphatase Total Creatine Kinase Troponin I Total Protein Albumin Triglycerides Lipase Arterial Blood Potassium 5.2 H 6.2 H* 6.0 H Arterial Blood Glucose 228 H 249 H 248 H Urine Protein Urine Glucose (UA) Urine Blood Urine Mucus Urine Opiates Screen Crossmatch 08/02/17 08/02/17 08/02/17 14:06 14:52 14:52 WBC RBC 3.41 L Hgb 10.6 L D Hct 32.7 L Plt Count 88 L Neutrophils # Lymphocytes # 0.6 L Monocytes # ABG pH 7.33 L ABG pCO2 49 H ABG pO2 81 L ABG HCO3 26 H ABG Total CO2 27 H ABG O2 Saturation ABG Hematocrit ABG Sodium ABG Potassium 5.3 H ABG Ionized Calcium ABG Glucose 194 H Hemoglobin 11.1 L Sodium Potassium Chloride Carbon Dioxide BUN Glucose POC Glucose (mg/dL) 210 H Hemoglobin A1c Calcium Magnesium AST ALT Alkaline Phosphatase Total Creatine Kinase Troponin I Total Protein Albumin Triglycerides Lipase Arterial Blood Potassium 5.3 H Arterial Blood Glucose 194 H Urine Protein Urine Glucose (UA) Urine Blood Urine Mucus Urine Opiates Screen Crossmatch 08/02/17 08/02/17 08/02/17 14:52 15:22 15:23 WBC RBC Hgb Hct Plt Count Neutrophils # Lymphocytes # Monocytes # ABG pH ABG pCO2 ABG pO2 ABG HCO3 ABG Total CO2 26 H ABG O2 Saturation 97.5 H ABG Hematocrit ABG Sodium ABG Potassium ABG Ionized Calcium ABG Glucose Hemoglobin Sodium Potassium 5.6 H Chloride 108 H Carbon Dioxide BUN 21 H Glucose 176 H POC Glucose (mg/dL) 188 H Hemoglobin A1c Calcium 7.7 L Magnesium AST ALT 77 H Alkaline Phosphatase Total Creatine Kinase Troponin I Total Protein 4.6 L Albumin 2.7 L Triglycerides Lipase Arterial Blood Potassium Arterial Blood Glucose Urine Protein Urine Glucose (UA) Urine Blood Urine Mucus Urine Opiates Screen Crossmatch 08/02/17 08/02/17 08/02/17 16:17 17:01 18:00 WBC RBC 3.27 L Hgb 10.2 L Hct 30.9 L Plt Count 99 L Neutrophils # 8.1 H Lymphocytes # 0.5 L Monocytes # ABG pH ABG pCO2 ABG pO2 ABG HCO3 ABG Total CO2 ABG O2 Saturation ABG Hematocrit ABG Sodium ABG Potassium ABG Ionized Calcium ABG Glucose Hemoglobin Sodium Potassium Chloride Carbon Dioxide BUN Glucose POC Glucose (mg/dL) 210 H 178 H Hemoglobin A1c Calcium Magnesium AST ALT Alkaline Phosphatase Total Creatine Kinase Troponin I Total Protein Albumin Triglycerides Lipase Arterial Blood Potassium Arterial Blood Glucose Urine Protein Urine Glucose (UA) Urine Blood Urine Mucus Urine Opiates Screen Crossmatch 08/02/17 08/02/17 08/02/17 18:00 18:00 19:05 WBC RBC Hgb Hct Plt Count Neutrophils # Lymphocytes # Monocytes # ABG pH ABG pCO2 ABG pO2 ABG HCO3 ABG Total CO2 ABG O2 Saturation ABG Hematocrit ABG Sodium ABG Potassium ABG Ionized Calcium ABG Glucose Hemoglobin Sodium Potassium Chloride Carbon Dioxide BUN 22 H Glucose 169 H POC Glucose (mg/dL) 180 H 166 H Hemoglobin A1c Calcium 8.3 L Magnesium AST ALT 73 H Alkaline Phosphatase Total Creatine Kinase Troponin I Total Protein 4.5 L Albumin 2.8 L Triglycerides Lipase Arterial Blood Potassium Arterial Blood Glucose Urine Protein Urine Glucose (UA) Urine Blood Urine Mucus Urine Opiates Screen Crossmatch 08/02/17 08/02/17 08/02/17 20:10 20:12 21:10 WBC RBC Hgb Hct Plt Count Neutrophils # Lymphocytes # Monocytes # ABG pH ABG pCO2 ABG pO2 112 H ABG HCO3 ABG Total CO2 27 H ABG O2 Saturation 99.0 H ABG Hematocrit ABG Sodium ABG Potassium ABG Ionized Calcium ABG Glucose Hemoglobin Sodium Potassium Chloride Carbon Dioxide BUN Glucose POC Glucose (mg/dL) 154 H 157 H Hemoglobin A1c Calcium Magnesium AST ALT Alkaline Phosphatase Total Creatine Kinase Troponin I Total Protein Albumin Triglycerides Lipase Arterial Blood Potassium Arterial Blood Glucose Urine Protein Urine Glucose (UA) Urine Blood Urine Mucus Urine Opiates Screen Crossmatch 08/02/17 08/02/17 08/02/17 21:21 21:21 22:00 WBC 12.2 H RBC 3.57 L Hgb 11.2 L Hct 34.1 L Plt Count 109 L Neutrophils # 10.6 H Lymphocytes # 0.4 L Monocytes # 1.1 H ABG pH ABG pCO2 ABG pO2 ABG HCO3 ABG Total CO2 ABG O2 Saturation ABG Hematocrit ABG Sodium ABG Potassium ABG Ionized Calcium ABG Glucose Hemoglobin Sodium Potassium Chloride Carbon Dioxide BUN 21 H Glucose 155 H POC Glucose (mg/dL) 174 H Hemoglobin A1c Calcium Magnesium AST ALT Alkaline Phosphatase Total Creatine Kinase Troponin I Total Protein Albumin Triglycerides Lipase Arterial Blood Potassium Arterial Blood Glucose Urine Protein Urine Glucose (UA) Urine Blood Urine Mucus Urine Opiates Screen Crossmatch 08/02/17 08/02/17 08/03/17 22:57 23:55 01:04 WBC RBC Hgb Hct Plt Count Neutrophils # Lymphocytes # Monocytes # ABG pH ABG pCO2 ABG pO2 ABG HCO3 ABG Total CO2 ABG O2 Saturation ABG Hematocrit ABG Sodium ABG Potassium ABG Ionized Calcium ABG Glucose Hemoglobin Sodium Potassium Chloride Carbon Dioxide BUN Glucose POC Glucose (mg/dL) 192 H 207 H 191 H Hemoglobin A1c Calcium Magnesium AST ALT Alkaline Phosphatase Total Creatine Kinase Troponin I Total Protein Albumin Triglycerides Lipase Arterial Blood Potassium Arterial Blood Glucose Urine Protein Urine Glucose (UA) Urine Blood Urine Mucus Urine Opiates Screen Crossmatch 03/27/18 03/27/18 03/27/18 02:11 03:07 03:35 WBC 12.0 H RBC 3.49 L Hgb 11.4 L Hct 32.8 L Plt Count 109 L Neutrophils # 9.6 H Lymphocytes # 0.9 L Monocytes # 1.1 H ABG pH ABG pCO2 ABG pO2 ABG HCO3 ABG Total CO2 ABG O2 Saturation ABG Hematocrit ABG Sodium ABG Potassium ABG Ionized Calcium ABG Glucose Hemoglobin Sodium Potassium Chloride Carbon Dioxide BUN Glucose POC Glucose (mg/dL) 169 H 142 H Hemoglobin A1c Calcium Magnesium AST ALT Alkaline Phosphatase Total Creatine Kinase Troponin I Total Protein Albumin Triglycerides Lipase Arterial Blood Potassium Arterial Blood Glucose Urine Protein Urine Glucose (UA) Urine Blood Urine Mucus Urine Opiates Screen Crossmatch 08/03/17 08/03/17 08/03/17 03:35 03:57 05:48 WBC RBC Hgb Hct Plt Count Neutrophils # Lymphocytes # Monocytes # ABG pH ABG pCO2 ABG pO2 ABG HCO3 ABG Total CO2 ABG O2 Saturation ABG Hematocrit ABG Sodium ABG Potassium ABG Ionized Calcium ABG Glucose Hemoglobin Sodium Potassium Chloride Carbon Dioxide BUN 21 H Glucose 134 H POC Glucose (mg/dL) 143 H 155 H Hemoglobin A1c Calcium Magnesium AST 89 H ALT 73 H Alkaline Phosphatase Total Creatine Kinase Troponin I Total Protein 5.2 L Albumin 3.1 L Triglycerides Lipase Arterial Blood Potassium Arterial Blood Glucose Urine Protein Urine Glucose (UA) Urine Blood Urine Mucus Urine Opiates Screen Crossmatch 08/03/17 08/03/17 08/03/17 06:23 06:59 08:06 WBC RBC Hgb Hct Plt Count Neutrophils # Lymphocytes # Monocytes # ABG pH ABG pCO2 ABG pO2 ABG HCO3 ABG Total CO2 ABG O2 Saturation ABG Hematocrit ABG Sodium ABG Potassium ABG Ionized Calcium ABG Glucose Hemoglobin Sodium Potassium Chloride Carbon Dioxide BUN Glucose POC Glucose (mg/dL) 149 H 135 H 187 H Hemoglobin A1c Calcium Magnesium AST ALT Alkaline Phosphatase Total Creatine Kinase Troponin I Total Protein Albumin Triglycerides Lipase Arterial Blood Potassium Arterial Blood Glucose Urine Protein Urine Glucose (UA) Urine Blood Urine Mucus Urine Opiates Screen Crossmatch 08/03/17 08/03/17 08/03/17 09:10 10:09 11:16 WBC RBC Hgb Hct Plt Count Neutrophils # Lymphocytes # Monocytes # ABG pH ABG pCO2 ABG pO2 ABG HCO3 ABG Total CO2 ABG O2 Saturation ABG Hematocrit ABG Sodium ABG Potassium ABG Ionized Calcium ABG Glucose Hemoglobin Sodium Potassium Chloride Carbon Dioxide BUN Glucose POC Glucose (mg/dL) 221 H 180 H 150 H Hemoglobin A1c Calcium Magnesium AST ALT Alkaline Phosphatase Total Creatine Kinase Troponin I Total Protein Albumin Triglycerides Lipase Arterial Blood Potassium Arterial Blood Glucose Urine Protein Urine Glucose (UA) Urine Blood Urine Mucus Urine Opiates Screen Crossmatch 08/03/17 08/03/17 08/03/17 12:35 13:35 15:02 WBC RBC Hgb Hct Plt Count Neutrophils # Lymphocytes # Monocytes # ABG pH ABG pCO2 ABG pO2 ABG HCO3 ABG Total CO2 ABG O2 Saturation ABG Hematocrit ABG Sodium ABG Potassium ABG Ionized Calcium ABG Glucose Hemoglobin Sodium Potassium Chloride Carbon Dioxide BUN Glucose POC Glucose (mg/dL) 148 H 140 H 163 H Hemoglobin A1c Calcium Magnesium AST ALT Alkaline Phosphatase Total Creatine Kinase Troponin I Total Protein Albumin Triglycerides Lipase Arterial Blood Potassium Arterial Blood Glucose Urine Protein Urine Glucose (UA) Urine Blood Urine Mucus Urine Opiates Screen Crossmatch 08/03/17 08/03/17 08/03/17 16:05 17:50 20:01 WBC RBC Hgb Hct Plt Count Neutrophils # Lymphocytes # Monocytes # ABG pH ABG pCO2 ABG pO2 ABG HCO3 ABG Total CO2 ABG O2 Saturation ABG Hematocrit ABG Sodium ABG Potassium ABG Ionized Calcium ABG Glucose Hemoglobin Sodium Potassium Chloride Carbon Dioxide BUN Glucose POC Glucose (mg/dL) 169 H 141 H 182 H Hemoglobin A1c Calcium Magnesium AST ALT Alkaline Phosphatase Total Creatine Kinase Troponin I Total Protein Albumin Triglycerides Lipase Arterial Blood Potassium Arterial Blood Glucose Urine Protein Urine Glucose (UA) Urine Blood Urine Mucus Urine Opiates Screen Crossmatch 08/03/17 08/04/17 08/04/17 21:53 00:10 02:13 WBC RBC Hgb Hct Plt Count Neutrophils # Lymphocytes # Monocytes # ABG pH ABG pCO2 ABG pO2 ABG HCO3 ABG Total CO2 ABG O2 Saturation ABG Hematocrit ABG Sodium ABG Potassium ABG Ionized Calcium ABG Glucose Hemoglobin Sodium Potassium Chloride Carbon Dioxide BUN Glucose POC Glucose (mg/dL) 162 H 202 H 200 H Hemoglobin A1c Calcium Magnesium AST ALT Alkaline Phosphatase Total Creatine Kinase Troponin I Total Protein Albumin Triglycerides Lipase Arterial Blood Potassium Arterial Blood Glucose Urine Protein Urine Glucose (UA) Urine Blood Urine Mucus Urine Opiates Screen Crossmatch 08/04/17 08/04/17 08/04/17 03:52 05:10 05:10 WBC RBC 2.99 L Hgb 9.6 L D Hct 27.9 L Plt Count 89 L Neutrophils # Lymphocytes # Monocytes # ABG pH ABG pCO2 ABG pO2 ABG HCO3 ABG Total CO2 ABG O2 Saturation ABG Hematocrit ABG Sodium ABG Potassium ABG Ionized Calcium ABG Glucose Hemoglobin Sodium 133 L Potassium Chloride Carbon Dioxide BUN 30 H Glucose 110 H POC Glucose (mg/dL) 109 H Hemoglobin A1c Calcium 8.0 L Magnesium AST 60 H ALT Alkaline Phosphatase Total Creatine Kinase Troponin I Total Protein 4.6 L Albumin 2.5 L Triglycerides Lipase Arterial Blood Potassium Arterial Blood Glucose Urine Protein Urine Glucose (UA) Urine Blood Urine Mucus Urine Opiates Screen Crossmatch 08/04/17 08/04/17 08/04/17 05:54 08:19 10:12 WBC RBC Hgb Hct Plt Count Neutrophils # Lymphocytes # Monocytes # ABG pH ABG pCO2 ABG pO2 ABG HCO3 ABG Total CO2 ABG O2 Saturation ABG Hematocrit ABG Sodium ABG Potassium ABG Ionized Calcium ABG Glucose Hemoglobin Sodium Potassium Chloride Carbon Dioxide BUN Glucose POC Glucose (mg/dL) 124 H 202 H 207 H Hemoglobin A1c Calcium Magnesium AST ALT Alkaline Phosphatase Total Creatine Kinase Troponin I Total Protein Albumin Triglycerides Lipase Arterial Blood Potassium Arterial Blood Glucose Urine Protein Urine Glucose (UA) Urine Blood Urine Mucus Urine Opiates Screen Crossmatch 08/04/17 08/04/17 08/04/17 11:46 16:20 17:21 WBC RBC Hgb Hct Plt Count Neutrophils # Lymphocytes # Monocytes # ABG pH ABG pCO2 ABG pO2 ABG HCO3 ABG Total CO2 ABG O2 Saturation ABG Hematocrit ABG Sodium ABG Potassium ABG Ionized Calcium ABG Glucose Hemoglobin Sodium Potassium Chloride Carbon Dioxide BUN Glucose POC Glucose (mg/dL) 181 H 239 H 224 H Hemoglobin A1c Calcium Magnesium AST ALT Alkaline Phosphatase Total Creatine Kinase Troponin I Total Protein Albumin Triglycerides Lipase Arterial Blood Potassium Arterial Blood Glucose Urine Protein Urine Glucose (UA) Urine Blood Urine Mucus Urine Opiates Screen Crossmatch 08/04/17 08/04/17 08/05/17 19:56 21:08 00:13 WBC RBC Hgb Hct Plt Count Neutrophils # Lymphocytes # Monocytes # ABG pH ABG pCO2 ABG pO2 ABG HCO3 ABG Total CO2 ABG O2 Saturation ABG Hematocrit ABG Sodium ABG Potassium ABG Ionized Calcium ABG Glucose Hemoglobin Sodium Potassium Chloride Carbon Dioxide BUN Glucose POC Glucose (mg/dL) 251 H 282 H 172 H Hemoglobin A1c Calcium Magnesium AST ALT Alkaline Phosphatase Total Creatine Kinase Troponin I Total Protein Albumin Triglycerides Lipase Arterial Blood Potassium Arterial Blood Glucose Urine Protein Urine Glucose (UA) Urine Blood Urine Mucus Urine Opiates Screen Crossmatch 08/05/17 08/05/17 08/05/17 05:40 05:40 08:39 WBC RBC 2.70 L Hgb 8.7 L Hct 25.3 L Plt Count 104 L Neutrophils # Lymphocytes # Monocytes # ABG pH ABG pCO2 ABG pO2 ABG HCO3 ABG Total CO2 ABG O2 Saturation ABG Hematocrit ABG Sodium ABG Potassium ABG Ionized Calcium ABG Glucose Hemoglobin Sodium 132 L Potassium 5.4 H Chloride Carbon Dioxide BUN 40 H Glucose 197 H POC Glucose (mg/dL) 216 H Hemoglobin A1c Calcium 8.0 L Magnesium AST ALT Alkaline Phosphatase Total Creatine Kinase Troponin I Total Protein Albumin Triglycerides Lipase Arterial Blood Potassium Arterial Blood Glucose Urine Protein Urine Glucose (UA) Urine Blood Urine Mucus Urine Opiates Screen Crossmatch 08/05/17 08/05/17 08/05/17 11:59 17:44 19:42 WBC RBC Hgb Hct Plt Count Neutrophils # Lymphocytes # Monocytes # ABG pH ABG pCO2 ABG pO2 ABG HCO3 ABG Total CO2 ABG O2 Saturation ABG Hematocrit ABG Sodium ABG Potassium ABG Ionized Calcium ABG Glucose Hemoglobin Sodium Potassium Chloride Carbon Dioxide BUN Glucose POC Glucose (mg/dL) 154 H 183 H 168 H Hemoglobin A1c Calcium Magnesium AST ALT Alkaline Phosphatase Total Creatine Kinase Troponin I Total Protein Albumin Triglycerides Lipase Arterial Blood Potassium Arterial Blood Glucose Urine Protein Urine Glucose (UA) Urine Blood Urine Mucus Urine Opiates Screen Crossmatch 08/06/17 08/06/17 08/06/17 01:58 04:37 04:37 WBC RBC 2.76 L Hgb 8.7 L Hct 26.3 L Plt Count Neutrophils # Lymphocytes # Monocytes # ABG pH ABG pCO2 ABG pO2 ABG HCO3 ABG Total CO2 ABG O2 Saturation ABG Hematocrit ABG Sodium ABG Potassium ABG Ionized Calcium ABG Glucose Hemoglobin Sodium 135 L Potassium 5.2 H Chloride Carbon Dioxide BUN 45 H Glucose 154 H POC Glucose (mg/dL) 210 H Hemoglobin A1c Calcium Magnesium 2.5 H AST ALT Alkaline Phosphatase Total Creatine Kinase Troponin I Total Protein 4.9 L Albumin 2.6 L Triglycerides Lipase Arterial Blood Potassium Arterial Blood Glucose Urine Protein Urine Glucose (UA) Urine Blood Urine Mucus Urine Opiates Screen Crossmatch 08/06/17 08/06/17 08/06/17 06:59 11:28 16:29 WBC RBC Hgb Hct Plt Count Neutrophils # Lymphocytes # Monocytes # ABG pH ABG pCO2 ABG pO2 ABG HCO3 ABG Total CO2 ABG O2 Saturation ABG Hematocrit ABG Sodium ABG Potassium ABG Ionized Calcium ABG Glucose Hemoglobin Sodium Potassium Chloride Carbon Dioxide BUN Glucose POC Glucose (mg/dL) 144 H 186 H 199 H Hemoglobin A1c Calcium Magnesium AST ALT Alkaline Phosphatase Total Creatine Kinase Troponin I Total Protein Albumin Triglycerides Lipase Arterial Blood Potassium Arterial Blood Glucose Urine Protein Urine Glucose (UA) Urine Blood Urine Mucus Urine Opiates Screen Crossmatch Assessment and Plan (1) Status post coronary artery bypass grafting Current Visit: Yes Status: Acute Code(s): Z95.1 - PRESENCE OF AORTOCORONARY BYPASS GRAFT SNOMED Code(s): 880351525 (2) Blurred vision, bilateral Current Visit: Yes Status: Acute Code(s): H53.8 - OTHER VISUAL DISTURBANCES SNOMED Code(s): 000763432 (3) Dizziness Current Visit: Yes Status: Acute Code(s): R42 - DIZZINESS AND GIDDINESS SNOMED Code(s): 134528628 (4) Hypertension Current Visit: Yes Status: Chronic Code(s): I10 - ESSENTIAL (PRIMARY) HYPERTENSION SNOMED Code(s): 97422425 (5) Morbid obesity with BMI of 40.0-44.9, adult Current Visit: Yes Status: Chronic Code(s): E66.01 - MORBID (SEVERE) OBESITY DUE TO EXCESS CALORIES; Z68.41 - BODY MASS INDEX (BMI) 40.0-44.9, ADULT SNOMED Code(s): 056507020 (6) Diabetes Current Visit: No Status: Acute Code(s): E11.9 - TYPE 2 DIABETES MELLITUS WITHOUT COMPLICATIONS SNOMED Code(s): 81989995 Plan: This patient is a 47-year-old male who is postoperative day #4 following coronary artery bypass grafting. He was transferred out of the ICU to the medical floor today. He is complaining of dizziness and blurred vision. He was sent for an emergent computed tomography scan of the brain this afternoon which was reported normal. He does have slight facial asymmetry on his right. We are recommending to place patient on Antivert 12.5 mg twice a day. We will obtain MRI of the brain for further evaluation. His headache did respond to Tylenol No. 3 and we will continue close monitoring for any recurrent symptoms. His overall prognosis at this time remains guarded. Time with Patient: Greater than 30
--- NOTE | 2017-08-06 20:57 | P.PN ---
Subjective Progress Note Date: 08/06/17 Progress NOTE l being dictated for Dr. Soriano. Interval history: This a 47-year-old gentleman admitted with chest pain, possible acute non-STEMI with known history of CAD, ME, and multiple other medical issues. Evaluated by cardiology. Underwent cardiac catheterization this morning, reporting triple vessel disease: 60-70% stenosis of LAD involving ostial portion, 95% in the proximal RCA, 60% stenosis just prior to bifurcation into the PDA and PLV. Cardiothoracic surgery and pulmonary consulted. Carotid Doppler reporting thick neck with no significant velocity elevations. LFTs improving. Denies chest pain, palpitations or increased shortness of breath. 07/30/2017 developed hematoma at right groin site of cardiac cath., during the night. Ultrasound reporting pseudoaneurysm, status post injection with complete thrombosis as per IR. Denies abdominal pain. Evaluated by cardiothoracic surgery, scheduled for CABG on Wednesday. Denies chest pain, palpitations or increasing shortness of breath. Blood sugars remain elevated in the 200s. 07/31/2017 No overnight events 08/01/2017 No chest pain no significant overnight events 08/03/2079 Patient is status post ABG postoperative day one patient has a left right chest tubes along with mediastinal chest tube. Patient's [place] is out patient is comparing of pain in the chest beyond that no other issues patient is on IV insulin which we'll try to switch to Lantus and aspart regimen 08/04/2017 sitting up in chair, IS up to 1000, telemetry sinus rhythm. Ambulated in hallway with mild increased shortness of breath.chest x-ray reporting some improvement in aeration.elevated sugars,recently transitioned from insulin drip to long-acting insulin added to med regime. 08/05/2017 no overnight events. Blood sugars better controlled but elevated. Ambulating in hallway, tolerating increase in exertion well. Telemetry sinus rhythm.pain controlled.hemoglobin 8.7.renal function mildly worseningwith elevated potassium of 5.4. 08/06/2017. Patient is transferred out of ICU to telemetry unit.chest x-ray reporting minimal apical pneumothorax.incentive spirometer up to 1500. Passing flatus. Received Ativan earlier this morning for early DTs. No seizure activity reported.Complaining of dizziness and visual blurring in both eyes. Brain CT completed, reporting no acute intracranial process. Evaluated by neurology with recommendations. Review of systems: CONSTITUTIONAL: No fever, complains of feeling tired-did not sleep well last night. HEENT: Reports visual blurring upper thighs, no hearing problems. CARDIOVASCULAR: No chest pain, no palpitations, no syncope. PULMONARY: No shortness of breath, no cough, no hemoptysis. GASTROINTESTINAL: No diarrhea, no nausea, no vomiting, no abdominal pain. Normoactive bowel sounds. NEUROLOGICAL: Mild headache earlier-resolved after receiving Tylenol, no weakness, no numbness. Complains of dizziness. HEMATOLOGICAL: Denies any bleeding or petechiae. GENITOURINARY: Denies any burning micturition, frequency, or urgency. MUSCULOSKELETAL/RHEUMATOLOGICAL: Denies any joint pain, swelling, or any muscle pain. ENDOCRINE: Denies any polyuria or polydipsia. PSYCHIATRIC: No anxiety, no depression The rest of the 14 point review of systems is negative Active Medications Acetaminophen/Codeine Phosphate (Tylenol #3) 2 each PO Q4HR PRN PRN Reason: Pain Last Admin: 08/06/17 00:41 Dose: 2 each Albuterol/Ipratropium (Duoneb 0.5 Mg-3 Mg/3 Ml Soln) 3 ml INHALATION RT-Q2H PRN PRN Reason: Shortness Of Breath Or Wheezing Alprazolam (Xanax) 0.5 mg PO HS PRN PRN Reason: Anxiety Last Admin: 08/05/17 20:00 Dose: 0.5 mg Aspirin (Aspirin) 325 mg PO DAILY [facility] Last Admin: 08/06/17 08:00 Dose: 325 mg Atorvastatin Calcium (Lipitor) 40 mg PO DAILY [facility] Last Admin: 08/06/17 08:01 Dose: 40 mg Bisacodyl (Dulcolax) 10 mg RECTAL DAILY PRN PRN Reason: Constipation Clopidogrel Bisulfate (Plavix) 75 mg PO DAILY [facility] Last Admin: 08/06/17 08:01 Dose: 75 mg Folic Acid (Folic Acid) 1 mg PO DAILY@1200 [facility] Last Admin: 08/06/17 11:34 Dose: 1 mg Heparin Sodium (Porcine) (Heparin) 5,000 unit SQ Q8HR [facility] Last Admin: 08/06/17 17:29 Dose: 5,000 unit Insulin Aspart (Novolog) 0 unit SQ ACHS [facility] PRN Reason: Protocol Last Admin: 08/06/17 17:31 Dose: 5 unit Insulin Aspart (Novolog) 10 unit SQ AC-TID [facility] Last Admin: 08/06/17 17:30 Dose: 10 unit Insulin Detemir (Levemir) 25 unit SQ [facility] Last Admin: 08/05/17 21:06 Dose: 25 unit Ketorolac Tromethamine (Toradol) 15 mg IVP Q6HR [facility] Stop: 08/07/17 07:22 Last Admin: 08/06/17 17:27 Dose: 15 mg Lorazepam (Ativan) 1 mg IV Q1HR PRN PRN Reason: CIWA 10 to 15 Lorazepam (Ativan) 1 mg IV Q2HR PRN PRN Reason: CIWA 8 or 9 Last Admin: 08/06/17 08:00 Dose: 1 mg Magnesium Hydroxide (Milk Of Magnesia) 2,400 mg PO BID PRN PRN Reason: Constipation Meclizine HCl (Antivert) 12.5 mg PO BID [facility] Metoprolol Tartrate (Lopressor) 50 mg PO BID [facility] Last Admin: 08/06/17 08:00 Dose: 50 mg Miscellaneous Information (Magnesium Per Protocol) 1 each MISCELLANE DAILY PRN ; Protocol PRN Reason: Per Protocol Miscellaneous Information (Phosphorus Per Protocol) 1 each MISCELLANE DAILY PRN ; Protocol PRN Reason: Per Protocol Miscellaneous Information (Potassium Per Protocol) 1 each MISCELLANE DAILY PRN ; Protocol PRN Reason: Per Protocol Multivitamins (Theragran) 1 each PO DAILY@1200 [facility] Last Admin: 08/06/17 11:34 Dose: 1 each Ondansetron HCl (Zofran) 4 mg IVP Q6HR PRN PRN Reason: Nausea And Vomiting Pantoprazole Sodium (Protonix) 40 mg PO AC-BRKFST [facility] Last Admin: 08/06/17 08:01 Dose: 40 mg Senna/Docusate Sodium (Senokot-S) 2 each PO HS [facility] Last Admin: 08/05/17 20:00 Dose: 2 each Sodium Chloride (Saline Flush) 10 ml IV BID [facility] Last Admin: 08/06/17 08:01 Dose: 10 ml Thiamine HCl (Vitamin B-1) 100 mg PO BID@1200,1700 [facility] Last Admin: 08/06/17 17:27 Dose: 100 mg Objective - Vital Signs Vital signs: Vital Signs Temp 97.8 F 08/06/17 16:00 Pulse 76 08/06/17 16:00 Resp 16 08/06/17 16:00 BP 110/58 08/06/17 16:00 Pulse Ox 100 08/06/17 16:00 Intake & Output 08/06/17 08/06/17 08/07/17 06:59 18:59 06:59 Intake Total 360 Output Total 1800 Balance -1440 Weight 124.8 kg Intake: Oral 360 Output: Urine 1800 Other: Voiding Method Urinal Urinal # Voids 0 0 ABP, PAP, CO, CI - Last Documented Arterial Blood Pressure 144/66 Pulmonary Artery Pressure 28/17 Cardiac Output 6.5 Cardiac Index 2.8 - Exam PHYSICAL EXAM: VITAL SIGNS: As above GENERAL: Sitting up in chair, no acute distress HEENT: Conjunctivae normal. eyes normal. Oral mucosa moist NECK: No JVD. No thyroid enlargement. No LNs CARDIOVASCULAR: Regular S1, S2. No murmur RESPIRATION: Breath sounds diminished in the bases. no rhonchi, no crackles. No wheezing ABDOMEN: Soft, nontender . No guarding. no masses palpable. Bowel sounds heard. LEGS: No edema. no swelling PSYCHIATRY: Alert and oriented -3, mood and affect normal. NERVOUS SYSTEM: Cranial N 2-12 grossly normal. No nystagmus, questionable mild right facial droop. Moves all 4 limbs. Strength and sensation grossly intact. Skin: Right groin puncture site hematoma, large ecchymosis - Labs CBC & Chem 7: 08/06/17 04:37 08/06/17 04:37 Labs: Abnormal Lab Results - Last 24 Hours (Table) 08/06/17 08/06/17 08/06/17 Range/Units 01:58 04:37 04:37 RBC 2.76 L (4.30-5.90) m/uL Hgb 8.7 L (13.0-17.5) gm/dL Hct 26.3 L (39.0-53.0) % Sodium 135 L (137-145) mmol/L Potassium 5.2 H (3.5-5.1) mmol/L BUN 45 H (9-20) mg/dL Glucose 154 H (74-99) mg/dL POC Glucose (mg/dL) 210 H (75-99) mg/dL Magnesium 2.5 H (1.6-2.3) mg/dL Total Protein 4.9 L (6.3-8.2) g/dL Albumin 2.6 L (3.5-5.0) g/dL 08/06/17 08/06/17 08/06/17 Range/Units 06:59 11:28 16:29 RBC (4.30-5.90) m/uL Hgb (13.0-17.5) gm/dL Hct (39.0-53.0) % Sodium (137-145) mmol/L Potassium (3.5-5.1) mmol/L BUN (9-20) mg/dL Glucose (74-99) mg/dL POC Glucose (mg/dL) 144 H 186 H 199 H (75-99) mg/dL Magnesium (1.6-2.3) mg/dL Total Protein (6.3-8.2) g/dL Albumin (3.5-5.0) g/dL Assessment and Plan Assessment: 1. Chest pain, possible acute non-STEMI, status post cardiac catheterization with triple-vessel disease, status post CABG 2. Troponin 0.044 3. CAD with history of ME and stent 4. Diabetes mellitus type 2, hemoglobin A1c 9.6 5. Gastroesophageal reflux disease 6. Hyperlipidemia 7. Alcohol abuse, possible early DTs 8. Ongoing nicotine abuse 9. Pseudoaneurysm 10. mild acute renal failure with hyperkalemia 11. Postoperative anemia 12. Bilateral blurred vision with dizziness, possible vertigo,work-up in progress Plan: Continue on current medication regime ,monitoring and symptomatic treatment. Brain MRI ordered. [employer] Operator consulted. Antivert added to med regime as per neurology. Close Neuro checks/monitoring. Close monitoring for DTs. Lantus insulin dose further increased,close monitoring of Accu-Cheks. close monitoring of hemoglobin,renal function and electrolytes.Aggressive pulmonary toileting, incentive spirometer reinforced. Smoking and alcohol cessation addressed. Prognosis cardiac and multiple complex medical issues. The impression and plan of care has been dictated as directed. : I performed a history and examination of this patient, discussed the same with the dictator. I agree with the dictator's note ,documented as a scribe. Any additional findings or plans will be noted.
[2017-08-06 20:59] LABS: Glucose,Whole Blood 222 mg/dL (75-99)
[2017-08-06] MEDS: MECLIZINE 12.5 MG TAB PO SCH (21:21)
[2017-08-06] MEDS: SENNOSIDES-DOCUSATE SODIUM 1 EACH TAB PO SCH (21:21)
[2017-08-06] MEDS: INSULIN DETEMIR 100 UNIT/ML 10 ML VIAL SQ SCH (21:22)
[2017-08-06] MEDS: ALPRAZolam 0.5 MG TAB PO PRN (22:15)
[2017-08-07 01:59] LABS: Glucose,Whole Blood 230 mg/dL (75-99)
[2017-08-07] MEDS: Acetaminophen-Codeine 300-30mg TAB PO PRN ×3 (03:55→21:47)
[2017-08-07] MEDS: KETOROLAC 30 MG/ML 1 ML VIAL IVP SCH (05:49)
[2017-08-07] MEDS: PANTOPRAZOLE 40 MG TABLET PO SCH (06:02)
[2017-08-07 06:11] LABS: Glucose,Whole Blood 193 mg/dL (75-99)
--- NOTE | 2017-08-07 06:25 | XR ---
EXAMINATION TYPE: XR chest 2V DATE OF EXAM: 08/07/2017 HISTORY: post cardiac surgery. REFERENCE: Previous study dated 08/06/2017. FINDINGS: There has been a previous midline sternotomy. The heart is enlarged. I no longer identify pneumothorax on the left. There is some left basilar airs pace disease. There is mild vascular congestion. No significant pleural fluid is seen. IMPRESSION: IMPROVING POSTOPERATIVE CHANGE.
[2017-08-07] MEDS: INSULIN ASPART 100 UNIT/ML 1 ML 10 ML VIAL SQ SCH ×7 (07:00→20:58)
[2017-08-07 07:35] LABS: ALT 43 U/L (21-72); AST 34 U/L (17-59); Albumin 3.1 g/dL (3.5-5.0); Alkaline Phosphatase 138 U/L (38-126); Anion Gap 11 mmol/L; Blood Urea Nitrogen 41 mg/dL (9-20); Calcium 8.8 mg/dL (8.4-10.2); Carbon Dioxide 25 mmol/L (22-30); Chloride 104 mmol/L (98-107); Glucose 177 mg/dL (74-99); Magnesium 2.5 mg/dL (1.6-2.3); Potassium 5.3 mmol/L (3.5-5.1); Sodium 140 mmol/L (137-145); Total Bilirubin 0.8 mg/dL (0.2-1.3); Total Protein 5.6 g/dL (6.3-8.2)
[2017-08-07 07:39] LABS: MCH 32.3 pg (25.0-35.0); MCHC 34.3 g/dL (31.0-37.0); MCV 94.1 fL (80.0-100.0); Mean Platelet Volume 8.3; Platelet Count 190 k/uL (150-450); Poikilocytosis Slight; RBC 3.09 m/uL (4.30-5.90); RDW 13.6 % (11.5-15.5); WBC 6.7 k/uL (3.8-10.6)
[2017-08-07 08:15] LABS: Eosinophils # (M) 0.34 k/uL (0-0.7); Lymphocytes # (M) 1.27 k/uL (1.0-4.8); Monocytes # (M) 0.54 k/uL (0-1.0); Neutrophils # (M) 4.56 k/uL (1.3-7.7); Neutrophils % (M) 68 %; Nucleated Red Blood Cells 0 /100 WBC (0-0); Polychromasia Present; Total Cells Counted 100
--- NOTE | 2017-08-07 08:20 | P.PN ---
Subjective Progress Note Date: 08/07/17 Principal diagnosis: Symptomatic multivessel coronary artery disease, non-STEMI, history of known coronary artery disease with prior stenting to his right coronary artery and circumflex coronary artery, morbid obesity, diabetes mellitus type II with preoperative hemoglobin A1c 9.7%, hypertension, hypertriglyceridemia with preoperative triglyceride level 478, osteoarthritis, previous pneumonia, current nicotine dependence with preoperative FEV1 65% of predicted, chronic lumbar back pain, and GERD. POD #5 urgent coronary artery bypass grafting 3 vessels with left internal mammary artery to the left anterior descending coronary artery, reverse greater saphenous vein graft to the diagonal coronary artery, reverse greater saphenous vein grafts to the posterior lateral branch of the right coronary artery. Endoscopic vein harvest of the left greater saphenous vein, intraoperative epi- aortic ultrasound and transesophageal echocardiogram. He is currently sitting up in the recliner in no acute distress. Denies chest pain, shortness of breath. Does complain of blurred vision and dizziness since prior to surgery. Was seen by neurology, documented no focal deficits, brain CT ordered and was negative for any acute process, started on Antivert per primary service. Objective - Vital Signs Vital signs: Vital Signs Temp 97.8 F 08/07/17 03:50 Pulse 85 08/07/17 03:50 Resp 20 08/07/17 03:50 BP 148/79 08/07/17 03:50 Pulse Ox 99 08/07/17 03:50 Intake & Output 08/06/17 08/07/17 08/07/17 18:59 06:59 18:59 Intake Total 840 Output Total 825 Balance 15 Weight 124.1 kg Intake: Oral 840 Output: Urine 825 Other: Voiding Method Urinal Toilet Urinal # Voids 0 ABP, PAP, CO, CI - Last Documented Arterial Blood Pressure 144/66 Pulmonary Artery Pressure 28/17 Cardiac Output 6.5 Cardiac Index 2.8 - Constitutional General appearance: Present: cooperative, no acute distress, obese - Respiratory Details: Lungs sounds diminished bilaterally. Respirations even, nonlabored. Currently on room air with oxygen saturation 99%. Able to achieve 1500 mL on his incentive spirometry. - Cardiovascular Details: S1, S2 present. Regular rate and rhythm, sinus rhythm on telemetry. Palpable peripheral pulses bilaterally. Trace bilateral lower extremity edema present. No complaints of calf pain or tenderness. Heart hugger in place with patient demonstrating appropriate use. Antiembolism stockings, SCDs present. - Gastrointestinal Gastrointestinal Comment(s): Abdomen soft, nontender, nondistended. Active bowel sounds 4 quadrants. Tolerating diet. Positive bowel movement. - Genitourinary Genitourinary Comment(s): Continues to void clear, yellow urine. - Integumentary Integumentary Comment(s): Skin warm and dry with evidence of good perfusion. Anterior chest incision well approximated and covered with dry intact dressing. Left lower extremity EVH site well approximated. - Neurologic Neurologic: Present: CNII-XII intact - Musculoskeletal Musculoskeletal: Present: gait normal, strength equal bilaterally - Psychiatric Psychiatric: Present: A&O x's 3, appropriate affect, intact judgment & insight - Allied health notes Allied health notes reviewed: nursing - Labs CBC & Chem 7: 08/07/17 06:25 08/07/17 06:25 Labs: Abnormal Lab Results - Last 24 Hours (Table) 08/06/17 08/06/17 08/06/17 Range/Units 11:28 16:29 20:57 RBC (4.30-5.90) m/uL Hgb (13.0-17.5) gm/dL Hct (39.0-53.0) % Potassium (3.5-5.1) mmol/L BUN (9-20) mg/dL Glucose (74-99) mg/dL POC Glucose (mg/dL) 186 H 199 H 222 H (75-99) mg/dL Magnesium (1.6-2.3) mg/dL Alkaline Phosphatase (38-126) U/L Total Protein (6.3-8.2) g/dL Albumin (3.5-5.0) g/dL 08/07/17 08/07/17 08/07/17 Range/Units 01:58 06:10 06:25 RBC 3.09 L (4.30-5.90) m/uL Hgb 10.0 L (13.0-17.5) gm/dL Hct 29.0 L (39.0-53.0) % Potassium (3.5-5.1) mmol/L BUN (9-20) mg/dL Glucose (74-99) mg/dL POC Glucose (mg/dL) 230 H 193 H (75-99) mg/dL Magnesium (1.6-2.3) mg/dL Alkaline Phosphatase (38-126) U/L Total Protein (6.3-8.2) g/dL Albumin (3.5-5.0) g/dL 08/07/17 Range/Units 06:25 RBC (4.30-5.90) m/uL Hgb (13.0-17.5) gm/dL Hct (39.0-53.0) % Potassium 5.3 H (3.5-5.1) mmol/L BUN 41 H (9-20) mg/dL Glucose 177 H (74-99) mg/dL POC Glucose (mg/dL) (75-99) mg/dL Magnesium 2.5 H (1.6-2.3) mg/dL Alkaline Phosphatase 138 H (38-126) U/L Total Protein 5.6 L (6.3-8.2) g/dL Albumin 3.1 L (3.5-5.0) g/dL - Imaging and Cardiology Chest x-ray: report reviewed, image reviewed Assessment and Plan (1) H/O heart artery stent Current Visit: Yes Status: Chronic Code(s): Z95.5 - PRESENCE OF CORONARY ANGIOPLASTY IMPLANT AND GRAFT SNOMED Code(s): 110311211 (2) Morbid obesity with BMI of 40.0-44.9, adult Current Visit: Yes Status: Chronic Code(s): E66.01 - MORBID (SEVERE) OBESITY DUE TO EXCESS CALORIES; Z68.41 - BODY MASS INDEX (BMI) 40.0-44.9, ADULT SNOMED Code(s): 417196470 (3) Non-STEMI (non-ST elevated myocardial infarction) Current Visit: Yes Status: Acute Code(s): I21.4 - NON-ST ELEVATION (NSTEMI) MYOCARDIAL INFARCTION SNOMED Code(s): 555775672 (4) Hypertriglyceridemia Current Visit: Yes Status: Chronic Code(s): E78.1 - PURE HYPERGLYCERIDEMIA SNOMED Code(s): 454406609 (5) Coronary artery disease Current Visit: Yes Status: Chronic Code(s): I25.10 - ATHSCL HEART DISEASE OF [place] CORONARY ARTERY W/O ANG PCTRS SNOMED Code(s): 50393132 (6) Diabetes mellitus type 2 in obese Current Visit: Yes Status: Chronic Code(s): E11.69 - TYPE 2 DIABETES MELLITUS WITH OTHER SPECIFIED COMPLICATION; E66.9 - OBESITY, UNSPECIFIED SNOMED Code(s): 20239536 (7) GERD (gastroesophageal reflux disease) Current Visit: Yes Status: Chronic Code(s): K21.9 - GASTRO-ESOPHAGEAL REFLUX DISEASE WITHOUT ESOPHAGITIS SNOMED Code(s): 411697552 (8) History of pneumonia Current Visit: No Status: Resolved Code(s): Z87.01 - PERSONAL HISTORY OF PNEUMONIA (RECURRENT) SNOMED Code(s): 597745684 (9) Hypertension Current Visit: Yes Status: Chronic Code(s): I10 - ESSENTIAL (PRIMARY) HYPERTENSION SNOMED Code(s): 06792589 (10) Nicotine dependence Current Visit: Yes Status: Chronic Code(s): F17.200 - NICOTINE DEPENDENCE, UNSPECIFIED, UNCOMPLICATED SNOMED Code(s): 39568131 Plan: 1. Continue aspirin, statin, Plavix, subcu heparin, beta kayla. Will increase beta kayla therapy as tolerated. 2. Lisinopril discontinued secondary to hypotension. Not indicated as EF > 40% . 3. Encourage incentive spirometry use 10 times every hour. 4. Encourage smoking cessation. 5. Increase activity, ambulate in hallway. PT/OT/cardiac rehab following. 6. GI/DVT prophylaxis. 7. Continue CIWA protocol. Monitor for signs of DTs. 8. Diabetic management per Dr. Soriano's service. 9. Will monitor daily labs and chest x-rays. 10. Will need to see laborer [facility] per neurology recommendations. May be done as outpatient. 11. Discharge planning in progress. May discharge to inpatient rehab when bed available Time with Patient: Greater than 30
[2017-08-07] MEDS: METOPROLOL TARTRATE 50 MG TAB PO SCH ×2 (10:37→20:03)
[2017-08-07] MEDS: CLOPIDOGREL 75 MG TAB PO SCH (10:37)
[2017-08-07] MEDS: MECLIZINE 12.5 MG TAB PO SCH ×2 (10:37→20:04)
[2017-08-07] MEDS: ATORVASTATIN 40 MG TAB PO SCH (10:37)
[2017-08-07] MEDS: HEPARIN SODIUM,PORCINE 5,000 UNIT/ML 1 ML VIAL SQ SCH ×3 (10:37→23:06)
[2017-08-07] MEDS: ASPIRIN 325 MG TAB PO SCH (10:37)
--- NOTE | 2017-08-07 11:01 | P.PN ---
Subjective Progress Note Date: 08/07/17 This is a 47-year-old gentleman who is status post coronary artery bypass grafting surgery, patient underwent three-vessel bypass with a OMALLEY to the LAD, saphenous vein graft to the diagonal, posterior lateral branch of the RCA. He was seen and examined in the intensive care unit this morning. Denies any chest pain, breathing overall has been stable. He does complain of a headache which she states he's had for the past day and a half with associated dizziness. He also states that he has not been sleeping well. Patient was going through some DVTs and was given Ativan. Blood pressure 114/66 with a heart rate in the 90s. White blood cell count 7.1, hemoglobin 8.7, platelet count 152. Sodium 135, potassium 5.2 BUN 45, creatinine 1.2. 08/07/2017 Patient seen and examined this morning, still having headache with blurring of vision. CT negative. Hemodynamically stable. Potassium 5.3, BUN 41, creatinine 1.0. Objective - Vital Signs Vital signs: Vital Signs Temp 97.3 F L 08/07/17 08:00 Pulse 87 08/07/17 08:00 Resp 14 08/07/17 08:00 BP 120/68 08/07/17 08:00 Pulse Ox 98 08/07/17 08:00 Intake & Output 08/06/17 08/07/17 08/07/17 18:59 06:59 18:59 Intake Total 840 240 Output Total 825 Balance 15 240 Weight 124.1 kg Intake: Oral 840 240 Output: Urine 825 Other: Voiding Method Urinal Toilet Toilet Urinal Urinal # Voids 0 ABP, PAP, CO, CI - Last Documented Arterial Blood Pressure 144/66 Pulmonary Artery Pressure 28/17 Cardiac Output 6.5 Cardiac Index 2.8 - Exam PHYSICAL EXAMINATION: HEENT: Head is atraumatic, normocephalic. Pupils equal, round. Neck is supple. There is no elevated jugular venous pressure. HEART EXAMINATION: Heart S1, S2 normal. No murmur or gallop heard. CHEST EXAMINATION: lungs reveal diminished air entry to bilateral bases. ABDOMEN: Soft, nontender. Bowel sounds are heard. No organomegaly noted. EXTREMITIES: 2+ peripheral pulses with no evidence of peripheral edema and no calf tenderness noted. NEUROLOGIC patient is awake, alert and oriented -3. Complaining of mild dizziness and associated headache . - Labs CBC & Chem 7: 08/07/17 06:25 08/07/17 06:25 Labs: Abnormal Lab Results - Last 24 Hours (Table) 08/06/17 08/06/17 08/06/17 Range/Units 11:28 16:29 20:57 RBC (4.30-5.90) m/uL Hgb (13.0-17.5) gm/dL Hct (39.0-53.0) % Potassium (3.5-5.1) mmol/L BUN (9-20) mg/dL Glucose (74-99) mg/dL POC Glucose (mg/dL) 186 H 199 H 222 H (75-99) mg/dL Magnesium (1.6-2.3) mg/dL Alkaline Phosphatase (38-126) U/L Total Protein (6.3-8.2) g/dL Albumin (3.5-5.0) g/dL 08/07/17 08/07/17 08/07/17 Range/Units 01:58 06:10 06:25 RBC 3.09 L (4.30-5.90) m/uL Hgb 10.0 L (13.0-17.5) gm/dL Hct 29.0 L (39.0-53.0) % Potassium (3.5-5.1) mmol/L BUN (9-20) mg/dL Glucose (74-99) mg/dL POC Glucose (mg/dL) 230 H 193 H (75-99) mg/dL Magnesium (1.6-2.3) mg/dL Alkaline Phosphatase (38-126) U/L Total Protein (6.3-8.2) g/dL Albumin (3.5-5.0) g/dL 08/07/17 Range/Units 06:25 RBC (4.30-5.90) m/uL Hgb (13.0-17.5) gm/dL Hct (39.0-53.0) % Potassium 5.3 H (3.5-5.1) mmol/L BUN 41 H (9-20) mg/dL Glucose 177 H (74-99) mg/dL POC Glucose (mg/dL) (75-99) mg/dL Magnesium 2.5 H (1.6-2.3) mg/dL Alkaline Phosphatase 138 H (38-126) U/L Total Protein 5.6 L (6.3-8.2) g/dL Albumin 3.1 L (3.5-5.0) g/dL Assessment and Plan Plan: Assessment and plan #1 status post coronary artery bypass grafting surgery #2 known history of coronary artery disease with prior stent placement #3 diabetes #4 nicotine dependence #5 hypertension #6 hyperlipidemia #7 symptoms of dizziness and headache, CT of the brain ordered #8 daily alcohol intake, status post DTs Plan From cardiology's perspective, we will continue the patient on his current medications. Discharge to rehab or home when cleared by cardiothoracic surgery. DNP note has been reviewed, I agree with a documented findings and plan of care. Patient was seen and examined.
[2017-08-07] MEDS: FOLIC ACID 1 MG TAB PO SCH (11:56)
[2017-08-07] MEDS: THIAMINE 100 MG TAB PO SCH ×2 (11:56→18:07)
[2017-08-07] MEDS: MULTIVITAMINS, THERA 1 EACH TAB PO SCH (11:56)
--- NOTE | 2017-08-07 12:01 | P.PN ---
Subjective Progress Note Date: 08/07/17 Principal diagnosis: Coronary artery diseaseAnel Gunn is a 47-year-old white male patient who follows with Dr. Araujo, presented to the emergency department on 07/28/2017 at 2215 with complaints of a burning sensation in the left arm, chest discomfort, not feeling well, nausea , and shortness of breath. Patient denied any fever or chills. Denied any cough or congestion. Past medical history includes coronary artery disease, diabetes mellitus, GERD/reflux, hyperlipidemia, hypertension, previous myocardial infarction, osteoarthritis, pneumonia, colitis, nephrolithiasis. Patient is a current smoker, has smoked for close to 35 years. He has a daily alcohol intake. EKG completed in the emergency room showed normal sinus rhythm with T-wave inversion in lead III and aVF. Chest x-ray was negative for any acute cardiopulmonary process. Blood work showed a EDC of 6.7, hemoglobin of 15.1, d-dimer was negative at 0.50, electrolytes were within normal limits, renal profile was normal. First and second Troponins were elevated at 0.044, 0.035. Patient was noted to have mild elevation of his AST, ALT, and alkaline phosphatase, at 67, 202, and 148 respectively. Lipase was 303, serum alcohol was less than 10. Patient underwent cardiac catheterization which revealed disease in the LAD at 60-70% involving the ostial portion, circumflex coronary artery that was previously stented was patent. There was a 95% stenosis in the right coronary artery proximally. There was a 60% stenosis before the bifurcation into PDA and PLV, with a PDA being diffusely diseased. Cardiothoracic surgery was consulted for evaluation for coronary artery bypass grafting. We are consulted for preop CABG pulmonary evaluation and postop CABG pulmonary management. On 08/03/2017, the patient is postop day #1 following coronary to bypass surgery. The patient underwent three-vessel bypass with OMALLEY to LAD, saphenous vein graft to diagonal, posterior lateral branch of RCA. The patient came into the intensive care unit intubated on a mechanical ventilator. Within 6 hours of arrival, the patient was weaned off the mechanical ventilator and the patient was extubated without any major difficulties. The patient is awake and alert this morning sitting up on a chair. The patient has a adequate hemodynamic with adequate cardiac output index. The Pemberton-Jt catheter will be removed. The chest x-ray shows small better pleural effusion and the chest tubes are all in good location. The patient was having some issues with hypertension. He was briefly placed on Cleviprex which was discontinued. Currently the patient is on nitroglycerin at 5 mcg/m. The patient is also on Lopressor this will be started this morning. He is afebrile. He is having adequate pain control. Sternum stable clean and intact. No change in mental status. He is following commands and answering questions appropriately. His underlying rhythm is sinus. His hemoglobin is at 11.4. The chest tube output from the left was 165 mL during this last shift and from the mediastinum is down 96 and mouth for the next shift. The patient's body weight is 121 kg. He will be encouraged to use the incentive spirometer. No other significant events overnight. On 08/04/2017 I'm seeing this patient for a follow-up. The patient is postop day #2. He is sitting up on a chair. He has still mediastinal chest tubes and a left pleural chest tube. This sometimes will be removed today 9 and output has been low. The patient remains hemodynamic is stable. The patient is off the nitroglycerin drip. The patient is maintaining his own blood pressure. Slightly tachycardic and we have made suggestions to increase the metoprolol to 50 mg by mouth twice a day. He is also on 5 mg of lisinopril for blood pressure control. He is on insulin drip which will be switched to Lantus insulin. He is taking 40 units of insulin drip on an hourly basis. He is tolerating his diet. No nausea or vomiting. Sternum stable clean and intact. Hemodynamically stable. He is in a sinus rhythm. He mentions that no cold is giving him side effects and the hives made recommendations to switch him to Tylenol 3 for pain control. He is doing well. No other significant events over the past 24 hours. Neurologically awake and alert. On 08/05/2017 I'm seeing this patient for a follow-up and is postop day #3. The mediastinal tubes have been removed. The patient has a left pleural chest tube and output of which is minimal and can be taken out. He is hemodynamically stable. His pain is under good control with Tylenol threes. His blood sugar needs to be further adjusted knowing that the patient is still having some limited blood sugar elevation and I will suggest increasing the Lantus dose at baseline. No altered mentation. No agitation. He is requesting a Xanax to help him with sleep at nighttime. Otherwise, he is hemodynamically stable and there has been no other significant events over the past 24 hours. On 08/06/2017 the patient is postop day #4. The patient is doing extremely well from the hemodynamic standpoint. Chest tubes have been removed. Pacemaker wires have been removed. The patient had a chest x-ray this morning that showed some cardiomegaly and limited left basilar atelectasis and small effusions. Otherwise the right lung is clear. The patient is on room air. He is having some issues with sleeping. Earlier this morning he was also found to have some early signs of delirium tremens and he was given a milligram of Ativan. He is not able to sleep well overnight. He feels a bit lethargic today and resolving some morning headaches. No change in mental status. No hallucinations. No delusions. No focal neurological deficits. Pupils are equal and reactive to light. No seizure activity. He is able to ambulate. His pulling approximately 1500 on his incentive spirometer. The patient has adequate pain control. He is on Tylenol 3. Sternum stable clean and intact. No other significant events overnight. The patient is seen again today 08/07/2017 in follow-up on the selective care unit. This is postoperative day #5. He is awake and alert in no acute distress. His pain is well managed. He's been up ambulating with assistance. He is currently maintaining good O2 saturations in the high 90s on room air. He continues to work well with his incentive spirometer. White count 6.7. Hemoglobin 10.0. Creatinine 1.00. Objective - Vital Signs Vital signs: Vital Signs Temp 97.3 F L 08/07/17 08:00 Pulse 87 08/07/17 08:00 Resp 14 08/07/17 08:00 BP 120/68 08/07/17 08:00 Pulse Ox 98 08/07/17 08:00 Intake & Output 08/06/17 08/07/17 08/07/17 18:59 06:59 18:59 Intake Total 840 240 Output Total 825 Balance 15 240 Weight 124.1 kg Intake: Oral 840 240 Output: Urine 825 Other: Voiding Method Urinal Toilet Toilet Urinal Urinal # Voids 0 ABP, PAP, CO, CI - Last Documented Arterial Blood Pressure 144/66 Pulmonary Artery Pressure 28/17 Cardiac Output 6.5 Cardiac Index 2.8 - Exam GENERAL EXAM: Alert, active, comfortable in no apparent distress. HEAD: Normocephalic. EYES: Normal reaction of pupils, equal size. NOSE: Clear with pink turbinates. THROAT: No erythema or exudates. NECK: No masses, no JVD. CHEST: Incision clean dry well approximated. Sternum stable. LUNGS: Equal air entry with crackles in the posterior bases.. CVS: S1 and S2 normal with no audible murmur, regular rhythm. ABDOMEN: No hepatosplenomegaly, normal bowel sounds, no guarding or rigidity. SPINE: No scoliosis or deformity SKIN: No rashes CENTRAL NERVOUS SYSTEM: No focal deficits, tone is normal in all 4 extremities. EXTREMITIES: There is no peripheral edema. No clubbing, no cyanosis. Peripheral pulses are intact. - Labs CBC & Chem 7: 08/07/17 06:25 08/07/17 06:25 Labs: Abnormal Lab Results - Last 24 Hours (Table) 08/06/17 08/06/17 08/07/17 Range/Units 16:29 20:57 01:58 RBC (4.30-5.90) m/uL Hgb (13.0-17.5) gm/dL Hct (39.0-53.0) % Potassium (3.5-5.1) mmol/L BUN (9-20) mg/dL Glucose (74-99) mg/dL POC Glucose (mg/dL) 199 H 222 H 230 H (75-99) mg/dL Magnesium (1.6-2.3) mg/dL Alkaline Phosphatase (38-126) U/L Total Protein (6.3-8.2) g/dL Albumin (3.5-5.0) g/dL 08/07/17 08/07/17 08/07/17 Range/Units 06:10 06:25 06:25 RBC 3.09 L (4.30-5.90) m/uL Hgb 10.0 L (13.0-17.5) gm/dL Hct 29.0 L (39.0-53.0) % Potassium 5.3 H (3.5-5.1) mmol/L BUN 41 H (9-20) mg/dL Glucose 177 H (74-99) mg/dL POC Glucose (mg/dL) 193 H (75-99) mg/dL Magnesium 2.5 H (1.6-2.3) mg/dL Alkaline Phosphatase 138 H (38-126) U/L Total Protein 5.6 L (6.3-8.2) g/dL Albumin 3.1 L (3.5-5.0) g/dL Assessment and Plan Assessment: Assessment: #1. Symptomatic coronary artery disease, cardiac catheterization performed showed severe proximal stenosis of the RCA, progression of stenosis of the proximal LAD and patent circumflex stents. Status post coronary artery bypass grafting 3 with OMALLEY to LAD, saphenous vein grafts to the diagonal artery and posterior branch of the right coronary artery. Postoperative day #5. #2. History of coronary artery disease, with prior stenting of the circumflex artery and prior history of myocardial infarction #3. Diabetes mellitus type 2 #4. Nicotine dependence, ongoing #5. Daily alcohol intake, patient drinks around a pint of Rum a day #6. Hyperlipidemia, hypertension #7. GERD/reflux #8. Chronic lumbar pain #9. Osteoarthritis #10. History of nephrolithiasis Plan: The patient was seen and evaluated by Dr. Hale. He is stable from the pulmonary standpoint. He continues to work well of the incentive spirometer. We'll increase his activity as tolerated. We'll continue to follow. I, the cosigning physician, performed a history & physical examination of the patient. Lungs sounds a crackles in the bilateral posterior bases. Maintaining good O2 saturations in the 90s on room air. I discussed the assessment and plan of care with my nurse practitioner, Amanda Durand. I attest to the above note as dictated by her.
[2017-08-07 12:22] LABS: Glucose,Whole Blood 194 mg/dL (75-99)
[2017-08-07 17:18] LABS: Glucose,Whole Blood 175 mg/dL (75-99)
--- NOTE | 2017-08-07 17:29 | PN ---
PROGRESS NOTE DATE OF SERVICE: 08/07/2017. INTERVAL HISTORY: This 47-year-old gentleman who was admitted after CAD, CABG is still complaining of blurring of vision. The patient is closely monitored. Neurology consultation has been sought at this time, which showed the neurology exam is nonfocal at this time. A CT scan of the brain was also done which showed no acute intracranial process at this time. No chest pain. No palpitation. EXAM: Alert and oriented x3. Pulse 80, blood pressure 143/84, respirations 16, temperature 97.4, pulse ox 100% on room air. HEENT: Conjunctivae normal. NECK: No jugular venous distention. CARDIOVASCULAR: S1, S2 muffled. RESPIRATORY: Breath sounds diminished in the bases. A few scattered rhonchi. No crackles. ABDOMEN: Soft, nontender. LEGS: No edema. No swelling. NERVOUS SYSTEM: No focal deficits. LABS: Hemoglobin is 10. Sodium 40, potassium 5.3. Albumin is 3.1. ASSESSMENT: 1. Chest pain, possible acute non ST-segment elevation myocardial infarction, status post cardiac catheterization, triple-vessel disease and coronary artery bypass graft. 2. Troponin 0.044. 3. Bilateral blurring of vision. 4. Coronary artery disease with history of myocardial infarction and stent. 5. Diabetes mellitus type 2, hemoglobin A1c 9.6. 6. Gastroesophageal reflux disease. 7. Hyperlipidemia. 8. History of EtOH and delirium tremens. 9. Ongoing nicotine dependence. 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 11.Mild acute renal failure with hyperkalemia. 12.Postoperative anemia. RECOMMENDATIONS AND DISCUSSION: Recommend to continue current medical management and symptomatic treatment. Otherwise neurology, ophthalmology evaluation. Continue rest of the medication. Monitor blood sugars closely. Further recommendations to follow. MMODL / IJN: [id number] / [id number]
[2017-08-07] MEDS: SENNOSIDES-DOCUSATE SODIUM 1 EACH TAB PO SCH (20:04)
[2017-08-07 20:51] LABS: Glucose,Whole Blood 205 mg/dL (75-99)
[2017-08-07] MEDS: INSULIN DETEMIR 100 UNIT/ML 10 ML VIAL SQ SCH (20:58)
[2017-08-07] MEDS ORDERED: INSULIN ASPART 100 UNIT/ML 1 ML 10 ML VIAL SQ ONE (21:25)
[2017-08-07] MEDS: ALPRAZolam 0.5 MG TAB PO PRN (21:47)
--- NOTE | 2017-08-07 23:08 | P.PN ---
Subjective Progress Note Date: 08/07/17 This patient is a 47-year-old male who is postoperative day 5 following coronary artery bypass grafting. He was transferred out of the intensive care unit yesterday and complained of symptoms of visual blurring and dizziness. He underwent a urgent computed tomography scan of the brain which was negative for any acute abnormalities. MRI of the brain has been recommended. Patient continues to show slight improvement. His vision continues to show signs of blurriness. We have consulted ophthalmology for further assessment. The patient otherwise seems to be doing fairly well. As noted he is postoperative day #5. He does have history of underlying diabetes mellitus and his last hemoglobin A1c was elevated at 9.7. This may also be contributing to some of the visual changes possibly secondary to diabetic retinopathy. We will await further recommendations from ophthalmology. Patient was seen today by Dr. Garcia. He continues to do fairly well terms of his surgical recovery. We will continue to follow his progress. Closely during this admission. Objective - Vital Signs Vital signs: Vital Signs Temp 97.9 F 08/07/17 20:00 Pulse 109 H 08/07/17 20:00 Resp 16 08/07/17 20:00 BP 155/79 08/07/17 20:00 Pulse Ox 95 08/07/17 20:23 Intake & Output 08/07/17 08/07/17 08/08/17 06:59 18:59 06:59 Intake Total 840 720 300 Output Total 825 1300 Balance 15 -580 300 Weight 124.1 kg Intake: Oral 840 720 300 Output: Urine 825 1300 Other: Voiding Method Toilet Toilet Toilet Urinal Urinal Urinal # Voids 0 1 # Bowel Movements 0 ABP, PAP, CO, CI - Last Documented Arterial Blood Pressure 144/66 Pulmonary Artery Pressure 28/17 Cardiac Output 6.5 Cardiac Index 2.8 - Exam Physical examination: PHYSICAL EXAMINATION: Patient is resting comfortably in bed. VITAL SIGNS: Blood pressure is [143/84]. Heart rate is [80]. Respiration is [16] . Temperature is [97.4]. HEENT: Head is atraumatic, neck is supple, there were no carotid bruits. CHEST: Lungs are clear to auscultation and percussion. CARDIAC: S1, S2 normal rate and rhythm. There is no murmur. ABDOMEN: Soft and nontender. Bowel sounds are present. EXTREMITIES: There is no pedal edema. Peripheral pulses are present. Neurological examination: Patient's neurological examination is unchanged from yesterday. - Labs CBC & Chem 7: 08/07/17 06:25 08/07/17 06:25 Labs: Abnormal Lab Results - Last 24 Hours (Table) 08/07/17 08/07/17 08/07/17 Range/Units 01:58 06:10 06:25 RBC 3.09 L (4.30-5.90) m/uL Hgb 10.0 L (13.0-17.5) gm/dL Hct 29.0 L (39.0-53.0) % Potassium (3.5-5.1) mmol/L BUN (9-20) mg/dL Glucose (74-99) mg/dL POC Glucose (mg/dL) 230 H 193 H (75-99) mg/dL Magnesium (1.6-2.3) mg/dL Alkaline Phosphatase (38-126) U/L Total Protein (6.3-8.2) g/dL Albumin (3.5-5.0) g/dL 08/07/17 08/07/17 08/07/17 Range/Units 06:25 12:06 17:03 RBC (4.30-5.90) m/uL Hgb (13.0-17.5) gm/dL Hct (39.0-53.0) % Potassium 5.3 H (3.5-5.1) mmol/L BUN 41 H (9-20) mg/dL Glucose 177 H (74-99) mg/dL POC Glucose (mg/dL) 194 H 175 H (75-99) mg/dL Magnesium 2.5 H (1.6-2.3) mg/dL Alkaline Phosphatase 138 H (38-126) U/L Total Protein 5.6 L (6.3-8.2) g/dL Albumin 3.1 L (3.5-5.0) g/dL 08/07/17 Range/Units 20:49 RBC (4.30-5.90) m/uL Hgb (13.0-17.5) gm/dL Hct (39.0-53.0) % Potassium (3.5-5.1) mmol/L BUN (9-20) mg/dL Glucose (74-99) mg/dL POC Glucose (mg/dL) 205 H (75-99) mg/dL Magnesium (1.6-2.3) mg/dL Alkaline Phosphatase (38-126) U/L Total Protein (6.3-8.2) g/dL Albumin (3.5-5.0) g/dL Assessment and Plan (1) Status post coronary artery bypass grafting Current Visit: Yes Status: Acute Code(s): Z95.1 - PRESENCE OF AORTOCORONARY BYPASS GRAFT SNOMED Code(s): 773928153 (2) Blurred vision, bilateral Current Visit: Yes Status: Acute Code(s): H53.8 - OTHER VISUAL DISTURBANCES SNOMED Code(s): 314664482 (3) Dizziness Current Visit: Yes Status: Acute Code(s): R42 - DIZZINESS AND GIDDINESS SNOMED Code(s): 995059714 (4) Hypertension Current Visit: Yes Status: Chronic Code(s): I10 - ESSENTIAL (PRIMARY) HYPERTENSION SNOMED Code(s): 16131981 (5) Morbid obesity with BMI of 40.0-44.9, adult Current Visit: Yes Status: Chronic Code(s): E66.01 - MORBID (SEVERE) OBESITY DUE TO EXCESS CALORIES; Z68.41 - BODY MASS INDEX (BMI) 40.0-44.9, ADULT SNOMED Code(s): 264234799 (6) Diabetes Current Visit: No Status: Acute Code(s): E11.9 - TYPE 2 DIABETES MELLITUS WITHOUT COMPLICATIONS SNOMED Code(s): 26959245 Plan: This patient is a 47-year-old male who underwent recent coronary artery bypass grafting surgery and is postoperative day #5. He continues to show slight progress in terms of his symptoms of dizziness and blurred vision. He underwent a computed tomography scan of the brain yesterday which was negative for any acute process. He remains hemodynamically stable. We have recommended MRI of the brain to be completed for further assessment. We've also recommended an ophthalmology consultation for evaluation of his blurred vision. This may be secondary to diabetic retinopathy. We will continue close neurological follow-up for the patient. Await further recommendations from ophthalmology and cardiology regarding his progress. His overall prognosis at this time remains guarded.
[2017-08-08 02:07] LABS: Glucose,Whole Blood 177 mg/dL (75-99)
[2017-08-08] MEDS: Acetaminophen-Codeine 300-30mg TAB PO PRN (02:10)
[2017-08-08 06:29] LABS: Glucose,Whole Blood 223 mg/dL (75-99)
[2017-08-08 06:55] LABS: HCT 27.6 % (39.0-53.0); Hypochromasia Slight; MCHC 32.8 g/dL (31.0-37.0); MCV 94.5 fL (80.0-100.0); Mean Platelet Volume 8.3; Platelet Count 234 k/uL (150-450); Poikilocytosis Slight; RBC 2.92 m/uL (4.30-5.90); RDW 13.7 % (11.5-15.5); WBC 7.6 k/uL (3.8-10.6)
[2017-08-08] MEDS: INSULIN ASPART 100 UNIT/ML 1 ML 10 ML VIAL SQ SCH ×7 (07:06→21:19)
[2017-08-08] MEDS: PANTOPRAZOLE 40 MG TABLET PO SCH (07:06)
[2017-08-08 07:09] LABS: Anion Gap 10 mmol/L; Blood Urea Nitrogen 33 mg/dL (9-20); Carbon Dioxide 25 mmol/L (22-30); Chloride 105 mmol/L (98-107); Glucose 207 mg/dL (74-99); Potassium 5.3 mmol/L (3.5-5.1); Sodium 140 mmol/L (137-145)
--- NOTE | 2017-08-08 07:43 | XR ---
EXAMINATION TYPE: XR chest 1V portable DATE OF EXAM: 08/08/2017 HISTORY: post cardiac surgery. REFERENCE: Previous study dated 08/07/2017. FINDINGS: There has been a midline sternotomy. The heart remains enlarged. There is vascular congestion and mild edema. I cannot exclude a small lef t effusion. IMPRESSION: WORSENING CHANGES OF PULMONARY EDEMA.
[2017-08-08] MEDS ORDERED: FUROSEMIDE 10 MG/ML 4 ML VIAL IV STA (08:17)
[2017-08-08] MEDS: HEPARIN SODIUM,PORCINE 5,000 UNIT/ML 1 ML VIAL SQ SCH ×3 (09:14→23:14)
[2017-08-08] MEDS: CLOPIDOGREL 75 MG TAB PO SCH (09:15)
[2017-08-08] MEDS: MECLIZINE 12.5 MG TAB PO SCH ×2 (09:15→20:08)
[2017-08-08] MEDS: ASPIRIN 325 MG TAB PO SCH (09:15)
[2017-08-08] MEDS: METOPROLOL TARTRATE 50 MG TAB PO SCH ×2 (09:16→20:08)
[2017-08-08] MEDS: ATORVASTATIN 40 MG TAB PO SCH (09:16)
--- NOTE | 2017-08-08 09:29 | P.PN ---
Subjective Progress Note Date: 08/08/17 Principal diagnosis: Symptomatic multivessel coronary artery disease, non-STEMI, history of known coronary artery disease with prior stenting to his right coronary artery and circumflex coronary artery, morbid obesity, diabetes mellitus type II with preoperative hemoglobin A1c 9.7%, hypertension, hypertriglyceridemia with preoperative triglyceride level 478, osteoarthritis, previous pneumonia, current nicotine dependence with preoperative FEV1 65% of predicted, chronic lumbar back pain, and GERD. POD #6 urgent coronary artery bypass grafting 3 vessels with left internal mammary artery to the left anterior descending coronary artery, reverse greater saphenous vein graft to the diagonal coronary artery, reverse greater saphenous vein grafts to the posterior lateral branch of the right coronary artery. Endoscopic vein harvest of the left greater saphenous vein, intraoperative epi- aortic ultrasound and transesophageal echocardiogram. He is currently sitting up in the recliner in no acute distress. States pain is not controlled on Tylenol #3, asking to be put back on his home norco. Does complain of blurred vision and dizziness since prior to surgery. Was seen by neurology, documented no focal deficits, brain CT ordered and was negative for any acute process, started on Antivert per primary service, neurology consulted opthamology for possible diabetic retinopathy. Objective - Vital Signs Vital signs: Vital Signs Temp 97.0 F L 08/08/17 03:15 Pulse 93 08/08/17 03:15 Resp 16 08/08/17 03:15 BP 127/74 08/08/17 03:15 Pulse Ox 95 08/08/17 08:00 Intake & Output 08/07/17 08/08/17 08/08/17 18:59 06:59 18:59 Intake Total 720 780 360 Output Total 1300 Balance -580 780 360 Weight 122.8 kg Intake: Oral 720 780 360 Output: Urine 1300 Other: Voiding Method Toilet Toilet Urinal Urinal # Voids 0 3 # Bowel Movements 0 ABP, PAP, CO, CI - Last Documented Arterial Blood Pressure 144/66 Pulmonary Artery Pressure 28/17 Cardiac Output 6.5 Cardiac Index 2.8 - Constitutional General appearance: Present: cooperative, no acute distress, obese - Respiratory Details: Lungs sounds diminished bilaterally. Respirations even, nonlabored. Currently on room air with oxygen saturation 97%. Able to achieve 1000 mL on his incentive spirometry. Weak cough. - Cardiovascular Details: S1, S2 present. Regular rate and rhythm, sinus rhythm on telemetry. Sternum stable. Palpable peripheral pulses bilaterally. Bilateral lower extremity edema present. No calf pain or tenderness noted. Antiembolism stockings, SCDs , heart hugger in place. - Gastrointestinal Gastrointestinal Comment(s): Abdomen soft, nontender, nondistended. Active bowel sounds 4 quadrants. Tolerating diet. Positive bowel movement. - Genitourinary Genitourinary Comment(s): continues to void clear, yellow urine. - Integumentary Integumentary Comment(s): Skin is warm and dry with evidence of good perfusion. Anterior chest incision well approximated, dry intact dressing present. Left lower extremity EVH site well approximated. - Neurologic Neurologic: Present: CNII-XII intact - Musculoskeletal Musculoskeletal: Present: gait normal, strength equal bilaterally - Psychiatric Psychiatric: Present: A&O x's 3, appropriate affect, intact judgment & insight - Allied health notes Allied health notes reviewed: nursing - Labs CBC & Chem 7: 08/08/17 06:29 08/08/17 06:29 Labs: Abnormal Lab Results - Last 24 Hours (Table) 08/07/17 08/07/17 08/07/17 Range/Units 12:06 17:03 20:49 RBC (4.30-5.90) m/uL Hgb (13.0-17.5) gm/dL Hct (39.0-53.0) % Potassium (3.5-5.1) mmol/L BUN (9-20) mg/dL Glucose (74-99) mg/dL POC Glucose (mg/dL) 194 H 175 H 205 H (75-99) mg/dL 08/08/17 08/08/17 08/08/17 Range/Units 02:06 06:27 06:29 RBC 2.92 L (4.30-5.90) m/uL Hgb 9.0 L (13.0-17.5) gm/dL Hct 27.6 L (39.0-53.0) % Potassium (3.5-5.1) mmol/L BUN (9-20) mg/dL Glucose (74-99) mg/dL POC Glucose (mg/dL) 177 H 223 H (75-99) mg/dL 08/08/17 Range/Units 06:29 RBC (4.30-5.90) m/uL Hgb (13.0-17.5) gm/dL Hct (39.0-53.0) % Potassium 5.3 H (3.5-5.1) mmol/L BUN 33 H (9-20) mg/dL Glucose 207 H (74-99) mg/dL POC Glucose (mg/dL) (75-99) mg/dL - Imaging and Cardiology Chest x-ray: report reviewed, image reviewed Assessment and Plan (1) H/O heart artery stent Current Visit: Yes Status: Chronic Code(s): Z95.5 - PRESENCE OF CORONARY ANGIOPLASTY IMPLANT AND GRAFT SNOMED Code(s): 781414770 (2) Morbid obesity with BMI of 40.0-44.9, adult Current Visit: Yes Status: Chronic Code(s): E66.01 - MORBID (SEVERE) OBESITY DUE TO EXCESS CALORIES; Z68.41 - BODY MASS INDEX (BMI) 40.0-44.9, ADULT SNOMED Code(s): 329520867 (3) Non-STEMI (non-ST elevated myocardial infarction) Current Visit: Yes Status: Acute Code(s): I21.4 - NON-ST ELEVATION (NSTEMI) MYOCARDIAL INFARCTION SNOMED Code(s): 899714426 (4) Hypertriglyceridemia Current Visit: Yes Status: Chronic Code(s): E78.1 - PURE HYPERGLYCERIDEMIA SNOMED Code(s): 913280781 (5) Coronary artery disease Current Visit: Yes Status: Chronic Code(s): I25.10 - ATHSCL HEART DISEASE OF [place] CORONARY ARTERY W/O ANG PCTRS SNOMED Code(s): 82811450 (6) Diabetes mellitus type 2 in obese Current Visit: Yes Status: Chronic Code(s): E11.69 - TYPE 2 DIABETES MELLITUS WITH OTHER SPECIFIED COMPLICATION; E66.9 - OBESITY, UNSPECIFIED SNOMED Code(s): 33326196 (7) GERD (gastroesophageal reflux disease) Current Visit: Yes Status: Chronic Code(s): K21.9 - GASTRO-ESOPHAGEAL REFLUX DISEASE WITHOUT ESOPHAGITIS SNOMED Code(s): 999952570 (8) History of pneumonia Current Visit: No Status: Resolved Code(s): Z87.01 - PERSONAL HISTORY OF PNEUMONIA (RECURRENT) SNOMED Code(s): 795358884 (9) Hypertension Current Visit: Yes Status: Chronic Code(s): I10 - ESSENTIAL (PRIMARY) HYPERTENSION SNOMED Code(s): 72702843 (10) Nicotine dependence Current Visit: Yes Status: Chronic Code(s): F17.200 - NICOTINE DEPENDENCE, UNSPECIFIED, UNCOMPLICATED SNOMED Code(s): 47956574 Plan: 1. Continue aspirin, statin, Plavix, subcu heparin, beta kayla. Will increase beta kayla therapy as tolerated. 2. Lisinopril discontinued secondary to hypotension. Not indicated as EF > 40% . 3. Encourage incentive spirometry use 10 times every hour. 4. Encourage smoking cessation. 5. Increase activity, ambulate in hallway. PT/OT/cardiac rehab following. 6. GI/DVT prophylaxis. 7. Will give 40 mg IV Lasix today. 8. Diabetic management per Dr. Soriano's service. 9. Will monitor daily labs and chest x-rays. 10. Will need to see trouble locator test desk per neurology recommendations. 11. Discharge planning in progress. May discharge to inpatient rehab when bed available Time with Patient: Greater than 30
[2017-08-08] MEDS: HYDROcodone/APAP 10-325MG 1 EACH TAB PO PRN ×2 (09:40→20:08)
--- NOTE | 2017-08-08 10:54 | P.PN ---
Subjective Progress Note Date: 08/08/17 Principal diagnosis: CAD and status post CABG This is a pleasant 47-year-old gentleman who was admitted to the hospital and underwent CABG 3 with OMALLEY to LAD, SVG to diagonal, and SVG to RCA. From a cardiovascular standpoint of view, he denies having any chest pain or discomfort or difficulty breathing. Post operatively, he developed some visual disturbance which seems to be of unknown etiology. Hemodynamically he is a stable and he continues to be in normal sinus mechanism. Objective - Vital Signs Vital signs: Vital Signs Temp 97.0 F L 08/08/17 03:15 Pulse 93 08/08/17 03:15 Resp 16 08/08/17 03:15 BP 127/74 08/08/17 03:15 Pulse Ox 95 08/08/17 08:00 Intake & Output 08/07/17 08/08/17 08/08/17 18:59 06:59 18:59 Intake Total 720 780 360 Output Total 1300 Balance -580 780 360 Weight 122.8 kg Intake: Oral 720 780 360 Output: Urine 1300 Other: Voiding Method Toilet Toilet Urinal Urinal # Voids 0 3 # Bowel Movements 0 ABP, PAP, CO, CI - Last Documented Arterial Blood Pressure 144/66 Pulmonary Artery Pressure 28/17 Cardiac Output 6.5 Cardiac Index 2.8 - Constitutional General appearance: Present: no acute distress - Respiratory Respiratory: bilateral: CTA - Cardiovascular Rhythm: regular Heart sounds: normal: S1, S2 - Labs CBC & Chem 7: 08/08/17 06:29 08/08/17 06:29 Labs: Abnormal Lab Results - Last 24 Hours (Table) 08/07/17 08/07/17 08/07/17 Range/Units 12:06 17:03 20:49 RBC (4.30-5.90) m/uL Hgb (13.0-17.5) gm/dL Hct (39.0-53.0) % Potassium (3.5-5.1) mmol/L BUN (9-20) mg/dL Glucose (74-99) mg/dL POC Glucose (mg/dL) 194 H 175 H 205 H (75-99) mg/dL 08/08/17 08/08/17 08/08/17 Range/Units 02:06 06:27 06:29 RBC 2.92 L (4.30-5.90) m/uL Hgb 9.0 L (13.0-17.5) gm/dL Hct 27.6 L (39.0-53.0) % Potassium (3.5-5.1) mmol/L BUN (9-20) mg/dL Glucose (74-99) mg/dL POC Glucose (mg/dL) 177 H 223 H (75-99) mg/dL 08/08/17 Range/Units 06:29 RBC (4.30-5.90) m/uL Hgb (13.0-17.5) gm/dL Hct (39.0-53.0) % Potassium 5.3 H (3.5-5.1) mmol/L BUN 33 H (9-20) mg/dL Glucose 207 H (74-99) mg/dL POC Glucose (mg/dL) (75-99) mg/dL Assessment and Plan Assessment: assessment #1 coronary artery disease and status post CABG as described above #2 diabetes type 2 #3 hypertension #4 dyslipidemia Plan #1 continue the current medical treatment. The patient currently is on [facility] #2 follow-up with the patient
[2017-08-08] MEDS: MULTIVITAMINS, THERA 1 EACH TAB PO SCH (11:07)
[2017-08-08] MEDS: THIAMINE 100 MG TAB PO SCH ×2 (11:07→15:56)
[2017-08-08] MEDS: FOLIC ACID 1 MG TAB PO SCH (11:09)
[2017-08-08 11:54] LABS: Glucose,Whole Blood 180 mg/dL (75-99)
--- NOTE | 2017-08-08 12:02 | P.PN ---
Subjective Progress Note Date: 08/08/17 Luis A is a 47-year-old white male patient who follows with Dr. Araujo, presented to the emergency department on 07/28/2017 at 2215 with complaints of a burning sensation in the left arm, chest discomfort, not feeling well, nausea , and shortness of breath. Patient denied any fever or chills. Denied any cough or congestion. Past medical history includes coronary artery disease, diabetes mellitus, GERD/reflux, hyperlipidemia, hypertension, previous myocardial infarction, osteoarthritis, pneumonia, colitis, nephrolithiasis. Patient is a current smoker, has smoked for close to 35 years. He has a daily alcohol intake. EKG completed in the emergency room showed normal sinus rhythm with T-wave inversion in lead III and aVF. Chest x-ray was negative for any acute cardiopulmonary process. Blood work showed a EDC of 6.7, hemoglobin of 15.1, d-dimer was negative at 0.50, electrolytes were within normal limits, renal profile was normal. First and second Troponins were elevated at 0.044, 0.035. Patient was noted to have mild elevation of his AST, ALT, and alkaline phosphatase, at 67, 202, and 148 respectively. Lipase was 303, serum alcohol was less than 10. Patient underwent cardiac catheterization which revealed disease in the LAD at 60-70% involving the ostial portion, circumflex coronary artery that was previously stented was patent. There was a 95% stenosis in the right coronary artery proximally. There was a 60% stenosis before the bifurcation into PDA and PLV, with a PDA being diffusely diseased. Cardiothoracic surgery was consulted for evaluation for coronary artery bypass grafting. We are consulted for preop CABG pulmonary evaluation and postop CABG pulmonary management. On 08/03/2017, the patient is postop day #1 following coronary to bypass surgery. The patient underwent three-vessel bypass with OMALLEY to LAD, saphenous vein graft to diagonal, posterior lateral branch of RCA. The patient came into the intensive care unit intubated on a mechanical ventilator. Within 6 hours of arrival, the patient was weaned off the mechanical ventilator and the patient was extubated without any major difficulties. The patient is awake and alert this morning sitting up on a chair. The patient has a adequate hemodynamic with adequate cardiac output index. The Mission-Jt catheter will be removed. The chest x-ray shows small better pleural effusion and the chest tubes are all in good location. The patient was having some issues with hypertension. He was briefly placed on Cleviprex which was discontinued. Currently the patient is on nitroglycerin at 5 mcg/m. The patient is also on Lopressor this will be started this morning. He is afebrile. He is having adequate pain control. Sternum stable clean and intact. No change in mental status. He is following commands and answering questions appropriately. His underlying rhythm is sinus. His hemoglobin is at 11.4. The chest tube output from the left was 165 mL during this last shift and from the mediastinum is down 96 and mouth for the next shift. The patient's body weight is 121 kg. He will be encouraged to use the incentive spirometer. No other significant events overnight. On 08/04/2017 I'm seeing this patient for a follow-up. The patient is postop day #2. He is sitting up on a chair. He has still mediastinal chest tubes and a left pleural chest tube. This sometimes will be removed today 9 and output has been low. The patient remains hemodynamic is stable. The patient is off the nitroglycerin drip. The patient is maintaining his own blood pressure. Slightly tachycardic and we have made suggestions to increase the metoprolol to 50 mg by mouth twice a day. He is also on 5 mg of lisinopril for blood pressure control. He is on insulin drip which will be switched to Lantus insulin. He is taking 40 units of insulin drip on an hourly basis. He is tolerating his diet. No nausea or vomiting. Sternum stable clean and intact. Hemodynamically stable. He is in a sinus rhythm. He mentions that no cold is giving him side effects and the hives made recommendations to switch him to Tylenol 3 for pain control. He is doing well. No other significant events over the past 24 hours. Neurologically awake and alert. On 08/05/2017 I'm seeing this patient for a follow-up and is postop day #3. The mediastinal tubes have been removed. The patient has a left pleural chest tube and output of which is minimal and can be taken out. He is hemodynamically stable. His pain is under good control with Tylenol threes. His blood sugar needs to be further adjusted knowing that the patient is still having some limited blood sugar elevation and I will suggest increasing the Lantus dose at baseline. No altered mentation. No agitation. He is requesting a Xanax to help him with sleep at nighttime. Otherwise, he is hemodynamically stable and there has been no other significant events over the past 24 hours. On 08/06/2017 the patient is postop day #4. The patient is doing extremely well from the hemodynamic standpoint. Chest tubes have been removed. Pacemaker wires have been removed. The patient had a chest x-ray this morning that showed some cardiomegaly and limited left basilar atelectasis and small effusions. Otherwise the right lung is clear. The patient is on room air. He is having some issues with sleeping. Earlier this morning he was also found to have some early signs of delirium tremens and he was given a milligram of Ativan. He is not able to sleep well overnight. He feels a bit lethargic today and resolving some morning headaches. No change in mental status. No hallucinations. No delusions. No focal neurological deficits. Pupils are equal and reactive to light. No seizure activity. He is able to ambulate. His pulling approximately 1500 on his incentive spirometer. The patient has adequate pain control. He is on Tylenol 3. Sternum stable clean and intact. No other significant events overnight. The patient is seen again today 08/07/2017 in follow-up on the selective care unit. This is postoperative day #5. He is awake and alert in no acute distress. His pain is well managed. He's been up ambulating with assistance. He is currently maintaining good O2 saturations in the high 90s on room air. He continues to work well with his incentive spirometer. White count 6.7. Hemoglobin 10.0. Creatinine 1.00. On 8 the patient is being seen for a follow-up. The patient is looking well. Patient is postop day #6 following three-vessel bypass surgery. The patient has adequate pain control. He has not taken his Tylenol 3. No respiratory difficulties. Neurology evaluated this patient and the patient has no deficits for now. CAT scan of the brain was also negative. He is on Antivert for now. No cough. No sputum production. No fever or chills. No other significant events overnight. Pulse oxing 95%. Chest tubes are out. The chest x-ray from today showed some small left-sided pleural effusion and there is also pulmonary vessel congestion. Objective - Vital Signs Vital signs: Vital Signs Temp 97.0 F L 08/08/17 03:15 Pulse 93 08/08/17 03:15 Resp 16 08/08/17 03:15 BP 127/74 08/08/17 03:15 Pulse Ox 95 08/08/17 08:00 Intake & Output 08/07/17 08/08/17 08/08/17 18:59 06:59 18:59 Intake Total 720 780 360 Output Total 1300 Balance -580 780 360 Weight 122.8 kg Intake: Oral 720 780 360 Output: Urine 1300 Other: Voiding Method Toilet Toilet Urinal Urinal # Voids 0 3 # Bowel Movements 0 ABP, PAP, CO, CI - Last Documented Arterial Blood Pressure 144/66 Pulmonary Artery Pressure 28/17 Cardiac Output 6.5 Cardiac Index 2.8 - Exam - Constitutional General appearance: Present: cooperative, no acute distress, obese - EENT ENT: Present: hearing grossly normal - Neck Details: Neck is supple, no JVD, no lymphadenopathy. - Respiratory Details: Lungs sounds essentially clear throughout, diminished his bilateral bases. He sent her chest tubes have been removed. - Cardiovascular Details: Regular rhythm and rate. S1 and S2 present, negative for S3, gallop or murmur. Sternum is stable. - Gastrointestinal Gastrointestinal Comment(s): Abdomen is soft, nontender and nondistended. Obese. Active bowel sounds all 4 abdominal quadrants. Tolerating oral intake. Passing flatus. - Genitourinary Genitourinary Comment(s): Weinberg catheter is out - Integumentary Integumentary Comment(s): Skin is warm and dry. No clubbing or cyanosis present. Midline sternal incision clean dry and well approximated. No drainage or redness present. Dermabond dressing clean and dry. Left leg EVH site clean dry and approximated. No drainage or redness present. - Neurologic Neurologic: Present: CNII-XII intact - Musculoskeletal Musculoskeletal: Present: gait normal, strength equal bilaterally - Psychiatric Psychiatric: Present: A&O x's 3, appropriate affect, intact judgment & insight - Labs CBC & Chem 7: 08/08/17 06:29 08/08/17 06:29 Labs: Abnormal Lab Results - Last 24 Hours (Table) 08/07/17 08/07/17 08/07/17 Range/Units 12:06 17:03 20:49 RBC (4.30-5.90) m/uL Hgb (13.0-17.5) gm/dL Hct (39.0-53.0) % Potassium (3.5-5.1) mmol/L BUN (9-20) mg/dL Glucose (74-99) mg/dL POC Glucose (mg/dL) 194 H 175 H 205 H (75-99) mg/dL 08/08/17 08/08/17 08/08/17 Range/Units 02:06 06:27 06:29 RBC 2.92 L (4.30-5.90) m/uL Hgb 9.0 L (13.0-17.5) gm/dL Hct 27.6 L (39.0-53.0) % Potassium (3.5-5.1) mmol/L BUN (9-20) mg/dL Glucose (74-99) mg/dL POC Glucose (mg/dL) 177 H 223 H (75-99) mg/dL 08/08/17 08/08/17 Range/Units 06:29 11:37 RBC (4.30-5.90) m/uL Hgb (13.0-17.5) gm/dL Hct (39.0-53.0) % Potassium 5.3 H (3.5-5.1) mmol/L BUN 33 H (9-20) mg/dL Glucose 207 H (74-99) mg/dL POC Glucose (mg/dL) 180 H (75-99) mg/dL Assessment and Plan Plan: Assessment: #1. Symptomatic coronary artery disease, status post artery artery bypass grafting, 3 with OMALLEY to LAD, SVG to the Susan, and SVG to the posterior branch of the RCA, postop day 6 #2. History of coronary artery disease, with prior stenting of the circumflex artery and prior history of myocardial infarction #3. Diabetes mellitus type 2, currently on Levemir insulin 25 units daily. The patient is also on NovoLog 10 units 3 times a day. #4. Nicotine dependence, ongoing #5. Daily alcohol intake, patient drinks around a pint of Rum a day #6. Hyperlipidemia, hypertension #7. GERD/reflux #8. Chronic lumbar pain #9. Osteoarthritis #10. History of nephrolithiasis #11 dizziness and blurred vision and the workup by neurology has been negative and the patient is being monitored clinically. Plan Continue following up this patient. Pulmonary status is stable. Chest x-ray showing some increased pulmonary vascular congestion. May benefit from diuretics. His blood pressure was in the lower side and based on that lisinopril was discontinued. He has aspirin, statin, Plavix and beta blockers on board. Blood sugars being monitored. Continue using incentive spirometer. Neurologist on the case. We'll continue to follow.
[2017-08-08 16:35] LABS: Glucose,Whole Blood 256 mg/dL (75-99)
--- NOTE | 2017-08-08 18:25 | P.PN ---
Subjective Progress Note Date: 08/08/17 This patient is a 47-year-old male who is postoperative day 5 following coronary artery bypass grafting. He was transferred out of the intensive care unit yesterday and complained of symptoms of visual blurring and dizziness. He underwent a urgent computed tomography scan of the brain which was negative for any acute abnormalities. MRI of the brain has been recommended. Patient continues to show slight improvement. His vision continues to show signs of blurriness. We have consulted ophthalmology for further assessment. The patient otherwise seems to be doing fairly well. As noted he is postoperative day #6. He does have history of underlying diabetes mellitus and his last hemoglobin A1c was elevated at 9.7. This may also be contributing to some of the visual changes possibly secondary to diabetic retinopathy. We will await further recommendations from ophthalmology. Patient was seen today by Dr. Garcia. He continues to do fairly well terms of his surgical recovery. Patient 's dizziness has improved today. His vision still gives him difficulty and has noted we have recommended an ophthalmology consultation. Apparently they may be seeing him tomorrow at the beginning of the week. Patient seems to be making good recovery from his recent heart surgery. He is waiting possible transfer to inpatient rehab once a bed is available this next week. We will continue to follow his progress. Closely during this admission. Objective - Vital Signs Vital signs: Vital Signs Temp 97.7 F 08/08/17 11:15 Pulse 80 08/08/17 11:15 Resp 18 08/08/17 11:15 BP 114/75 08/08/17 11:15 Pulse Ox 97 08/08/17 11:15 Intake & Output 08/07/17 08/08/17 08/08/17 18:59 06:59 18:59 Intake Total 370 354 5197 Output Total 1300 Balance -178 453 3160 Weight 122.8 kg Intake: Oral 179 399 6455 Output: Urine 1300 Other: Voiding Method Toilet Toilet Urinal Urinal # Voids 0 3 # Bowel Movements 0 ABP, PAP, CO, CI - Last Documented Arterial Blood Pressure 144/66 Pulmonary Artery Pressure 28/17 Cardiac Output 6.5 Cardiac Index 2.8 - Exam Physical examination: PHYSICAL EXAMINATION: Patient is resting comfortably in bed. VITAL SIGNS: Blood pressure is [114/75]. Heart rate is [80]. Respiration is [18] . Temperature is [97.7]. HEENT: Head is atraumatic, neck is supple, there were no carotid bruits. CHEST: Lungs are clear to auscultation and percussion. CARDIAC: S1, S2 normal rate and rhythm. There is no murmur. ABDOMEN: Soft and nontender. Bowel sounds are present. EXTREMITIES: There is no pedal edema. Peripheral pulses are present. Neurological examination: Patient's neurological examination is unchanged from yesterday. Patient has less symptoms of dizziness today on examination. Still complains of some blurred vision. - Labs CBC & Chem 7: 08/08/17 06:29 08/08/17 06:29 Labs: Abnormal Lab Results - Last 24 Hours (Table) 08/07/17 08/08/17 08/08/17 Range/Units 20:49 02:06 06:27 RBC (4.30-5.90) m/uL Hgb (13.0-17.5) gm/dL Hct (39.0-53.0) % Potassium (3.5-5.1) mmol/L BUN (9-20) mg/dL Glucose (74-99) mg/dL POC Glucose (mg/dL) 205 H 177 H 223 H (75-99) mg/dL 08/08/17 08/08/17 08/08/17 Range/Units 06:29 06:29 11:37 RBC 2.92 L (4.30-5.90) m/uL Hgb 9.0 L (13.0-17.5) gm/dL Hct 27.6 L (39.0-53.0) % Potassium 5.3 H (3.5-5.1) mmol/L BUN 33 H (9-20) mg/dL Glucose 207 H (74-99) mg/dL POC Glucose (mg/dL) 180 H (75-99) mg/dL 08/08/17 Range/Units 16:32 RBC (4.30-5.90) m/uL Hgb (13.0-17.5) gm/dL Hct (39.0-53.0) % Potassium (3.5-5.1) mmol/L BUN (9-20) mg/dL Glucose (74-99) mg/dL POC Glucose (mg/dL) 256 H (75-99) mg/dL Assessment and Plan (1) Status post coronary artery bypass grafting Current Visit: Yes Status: Acute Code(s): Z95.1 - PRESENCE OF AORTOCORONARY BYPASS GRAFT SNOMED Code(s): 530091796 (2) Blurred vision, bilateral Current Visit: Yes Status: Acute Code(s): H53.8 - OTHER VISUAL DISTURBANCES SNOMED Code(s): 863142838 (3) Dizziness Current Visit: Yes Status: Acute Code(s): R42 - DIZZINESS AND GIDDINESS SNOMED Code(s): 143712019 (4) Hypertension Current Visit: Yes Status: Chronic Code(s): I10 - ESSENTIAL (PRIMARY) HYPERTENSION SNOMED Code(s): 00315593 (5) Morbid obesity with BMI of 40.0-44.9, adult Current Visit: Yes Status: Chronic Code(s): E66.01 - MORBID (SEVERE) OBESITY DUE TO EXCESS CALORIES; Z68.41 - BODY MASS INDEX (BMI) 40.0-44.9, ADULT SNOMED Code(s): 900761158 (6) Diabetes Current Visit: No Status: Acute Code(s): E11.9 - TYPE 2 DIABETES MELLITUS WITHOUT COMPLICATIONS SNOMED Code(s): 18365686 Plan: This patient is a 47-year-old male who underwent recent coronary artery bypass grafting surgery and is postoperative day #6. He continues to show slight progress in terms of his symptoms of dizziness and blurred vision. He underwent a computed tomography scan of the brain yesterday which was negative for any acute process. He remains hemodynamically stable. We have recommended MRI of the brain to be completed for further assessment. We've also recommended an ophthalmology consultation for evaluation of his blurred vision. This may be secondary to diabetic retinopathy. We have consulted ophthalmology to evaluate the patient possibly tomorrow. He is being considered for discharge to subacute rehab once a bed is available. Neurologically he remains stable and we will continue to follow his progress postoperatively over the next few days. We will continue close neurological follow-up for the patient. Await further recommendations from ophthalmology and cardiology regarding his progress. His overall prognosis at this time remains guarded.
[2017-08-08] MEDS: SENNOSIDES-DOCUSATE SODIUM 1 EACH TAB PO SCH (20:08)
[2017-08-08 21:12] LABS: Glucose,Whole Blood 187 mg/dL (75-99)
[2017-08-08] MEDS: INSULIN DETEMIR 100 UNIT/ML 10 ML VIAL SQ SCH (21:19)
[2017-08-08] MEDS: ALPRAZolam 0.5 MG TAB PO PRN (22:07)
--- NOTE | 2017-08-08 23:23 | P.PN ---
Subjective Progress Note Date: 08/08/17 Principal diagnosis: Status post coronary artery bypass graft Patient is a 47-year-old male with a known history of diabetes and coronary artery disease admitted for coronary artery bypass graft. Patient is postoperative day 6 Patient is still complaining of blurry vision and dizziness. CT head is negative. Otherwise blood sugar is fairly controlled now. [employer] [place] was consulted for further evaluation of the blurry vision and possible diabetic retinopathy as well. MRI of the brain was ordered. Neurology and pulmonary is following. 08/08/2017 Patient denied any complaints of chest pain or worsening shortness of breath. Patient is currently able to ambulate otherwise still complaining of dizziness and blurry vision. Ophthalmologic consult is awaiting. No fever no chills. Chest x-ray showed worsening pulmonary edema like picture. Patient was given IV Lasix 40 mg 1 No nausea vomiting or abdominal pain. All other review of systems negative except the above Active Medications Generic Name Dose Route Start Last Admin Trade Name Freq PRN Reason Stop Dose Admin Hydrocodone Bitart/Acetaminophen 1 each 08/08/17 09:23 08/08/17 20:08 Monroe 10 PO 1 each Q6H PRN Administration Pain 1-5 Hydrocodone Bitart/Acetaminophen 2 each 08/08/17 09:23 [place] 10 PO Q6H PRN Pain 6-10 Albuterol/Ipratropium 3 ml 08/03/17 13:51 Duoneb 0.5 Mg-3 Mg/3 Ml Soln INHALATION RT-Q2H PRN Shortness Of Breath Or Wheezing Alprazolam 0.5 mg 08/05/17 13:58 08/08/17 22:07 Xanax PO 0.5 mg HS PRN Administration Anxiety Aspirin 325 mg 08/03/17 09:00 08/08/17 09:15 Aspirin PO 325 mg DAILY ANDRE Administration Atorvastatin Calcium 40 mg 08/03/17 09:00 08/08/17 09:16 Lipitor PO 40 mg DAILY ANDRE Administration Bisacodyl 10 mg 08/03/17 13:50 Dulcolax RECTAL DAILY PRN Constipation Clopidogrel Bisulfate 75 mg 08/03/17 09:00 08/08/17 09:15 Plavix PO 75 mg DAILY ANDRE Administration Folic Acid 1 mg 08/03/17 12:00 08/08/17 11:09 Folic Acid PO 1 mg DAILY@1200 ANDRE Administration Heparin Sodium (Porcine) 5,000 unit 08/02/17 21:50 08/08/17 15:56 Heparin SQ 5,000 unit Q8HR ANDRE Administration Insulin Aspart 0 unit 08/04/17 12:30 08/08/17 21:19 Novolog SQ 5 unit ACHS ANDRE Administration Protocol Insulin Aspart 10 unit 08/05/17 12:30 08/08/17 17:25 Novolog SQ 10 unit AC-TID ANDRE Administration Insulin Detemir 35 unit 08/08/17 21:00 08/08/17 21:19 Levemir SQ 35 unit HS ANDRE Administration Lorazepam 1 mg 08/02/17 14:32 Ativan IV Q1HR PRN CIWA 10 to 15 Lorazepam 1 mg 08/02/17 14:32 08/06/17 08:00 Ativan IV 1 mg Q2HR PRN Administration CIWA 8 or 9 Magnesium Hydroxide 2,400 mg 08/03/17 13:50 Milk Of Magnesia PO BID PRN Constipation Meclizine HCl 12.5 mg 08/06/17 21:00 08/08/17 20:08 Antivert PO 12.5 mg BID ANDRE Administration Metoprolol Tartrate 50 mg 08/03/17 21:00 08/08/17 20:08 Lopressor PO 50 mg BID ANDRE Administration Miscellaneous Information 1 each 08/02/17 14:32 Magnesium Per Protocol MISCELLANE DAILY PRN Per Protocol Protocol Miscellaneous Information 1 each 08/02/17 14:32 Phosphorus Per Protocol MISCELLANE DAILY PRN Per Protocol Protocol Miscellaneous Information 1 each 08/02/17 14:32 Potassium Per Protocol MISCELLANE DAILY PRN Per Protocol Protocol Multivitamins 1 each 08/03/17 12:00 08/08/17 11:07 Theragran PO 1 each DAILY@1200 ANDRE Administration Ondansetron HCl 4 mg 08/02/17 14:32 Zofran IVP Q6HR PRN Nausea And Vomiting Pantoprazole Sodium 40 mg 08/03/17 07:30 08/08/17 07:06 Protonix PO 40 mg AC-BRKFST ANDRE Administration Senna/Docusate Sodium 2 each 08/03/17 21:00 08/08/17 20:08 Senokot-S PO 2 each HS ANDRE Administration Sodium Chloride 10 ml 08/03/17 09:00 08/08/17 20:08 Saline Flush IV 10 ml BID ANDRE Administration Thiamine HCl 100 mg 08/02/17 17:00 08/08/17 15:56 Vitamin B-1 PO 100 mg BID@1200,1700 ANDRE Administration Objective - Vital Signs Vital signs: Vital Signs Temp 97.7 F 08/08/17 11:15 Pulse 80 08/08/17 11:15 Resp 18 08/08/17 11:15 BP 114/75 08/08/17 11:15 Pulse Ox 97 08/08/17 11:15 Intake & Output 08/07/17 08/08/17 08/08/17 18:59 06:59 18:59 Intake Total 518 782 7669 Output Total 1300 Balance -413 504 6289 Weight 122.8 kg Intake: Oral 315 926 5619 Output: Urine 1300 Other: Voiding Method Toilet Toilet Urinal Urinal # Voids 0 3 # Bowel Movements 0 ABP, PAP, CO, CI - Last Documented Arterial Blood Pressure 144/66 Pulmonary Artery Pressure 28/17 Cardiac Output 6.5 Cardiac Index 2.8 - Exam PHYSICAL EXAMINATION: Patient is lying in the bed comfortably, no acute distress, awake alert and oriented. Morbidly obese.. HEENT: Normocephalic. Neck is supple. Pupils reactive. Nostrils clear. Oral cavity is moist. Ears reveal no drainage. Neck reveals no JVD, carotid bruits, or thyromegaly. CHEST EXAMINATION: Sternal wound is intact. Trachea is central. Symmetrical expansion. Lung taveras clear to auscultation and percussion. CARDIAC: Normal S1, S2 with no gallops. No murmurs ABDOMEN: Soft. Bowel sounds normal. No organomegaly. No abdominal bruits. Extremities: reveal no edema. No clubbing or cyanosis Neurologically awake, alert, oriented x3 with well-coordinated movements. No focal deficits noted Skin: No rash or skin lesions. Psychiatric: Cooperative. Nonsuicidal Musculoskeletal: No joint swelling or deformity. Normal range of motion. - Labs CBC & Chem 7: 08/08/17 06:29 08/08/17 06:29 Labs: Abnormal Lab Results - Last 24 Hours (Table) 08/07/17 08/07/17 08/08/17 Range/Units 17:03 20:49 02:06 RBC (4.30-5.90) m/uL Hgb (13.0-17.5) gm/dL Hct (39.0-53.0) % Potassium (3.5-5.1) mmol/L BUN (9-20) mg/dL Glucose (74-99) mg/dL POC Glucose (mg/dL) 175 H 205 H 177 H (75-99) mg/dL 08/08/17 08/08/17 08/08/17 Range/Units 06:27 06:29 06:29 RBC 2.92 L (4.30-5.90) m/uL Hgb 9.0 L (13.0-17.5) gm/dL Hct 27.6 L (39.0-53.0) % Potassium 5.3 H (3.5-5.1) mmol/L BUN 33 H (9-20) mg/dL Glucose 207 H (74-99) mg/dL POC Glucose (mg/dL) 223 H (75-99) mg/dL 08/08/17 08/08/17 Range/Units 11:37 16:32 RBC (4.30-5.90) m/uL Hgb (13.0-17.5) gm/dL Hct (39.0-53.0) % Potassium (3.5-5.1) mmol/L BUN (9-20) mg/dL Glucose (74-99) mg/dL POC Glucose (mg/dL) 180 H 256 H (75-99) mg/dL Assessment and Plan Assessment: Non-ST elevated PR status post cardiac catheterization and bypass graft Blurry vision and dizziness. Rule out acute CVA. MRI brain was ordered Coronary artery disease with history of stent placement Elevated troponin level Diabetes type 2 his B A1c 9.7 Hyperlipidemia GERD History of alcohol abuse and delirium tremens Ongoing nicotine addiction Mild acute kidney injury with hyperkalemia Acute blood loss anemia from surgery hemoglobin is fairly stable DVT prophylaxis Plan: Patient will be continued on telemetry monitoring. Continue with aspirin and a weeks and statins. MRI of the brain was ordered and ophthalmology was consulted. Neurology and cardiology and pulmonary is following. will continue with the Levemir 35 units daily at bedtime along with aspart 10 units 3 times a day before meals and sliding scale. Continue the PT OT and encourage ambulation and incentive spirometry. Further recommendations based on the clinical course. Time with Patient: Greater than 30
[2017-08-09] MEDS: HYDROcodone/APAP 10-325MG 1 EACH TAB PO PRN ×3 (01:08→22:17)
[2017-08-09 02:28] LABS: Glucose,Whole Blood 207 mg/dL (75-99)
[2017-08-09 05:54] LABS: HCT 27.4 % (39.0-53.0); HGB 9.2 gm/dL (13.0-17.5); Hypochromasia Slight; MCH 31.3 pg (25.0-35.0); MCHC 33.6 g/dL (31.0-37.0); MCV 93.1 fL (80.0-100.0); Mean Platelet Volume 7.9; Platelet Count 271 k/uL (150-450); Poikilocytosis Moderate; RBC 2.94 m/uL (4.30-5.90); RDW 13.7 % (11.5-15.5); WBC 8.7 k/uL (3.8-10.6)
[2017-08-09 06:03] LABS: Anion Gap 10 mmol/L; Blood Urea Nitrogen 31 mg/dL (9-20); Calcium 8.8 mg/dL (8.4-10.2); Carbon Dioxide 28 mmol/L (22-30); Chloride 101 mmol/L (98-107); Glucose 232 mg/dL (74-99); Sodium 139 mmol/L (137-145)
[2017-08-09 06:38] LABS: Glucose,Whole Blood 223 mg/dL (75-99)
[2017-08-09] MEDS: PANTOPRAZOLE 40 MG TABLET PO SCH (06:55)
[2017-08-09] MEDS: INSULIN ASPART 100 UNIT/ML 1 ML 10 ML VIAL SQ SCH ×7 (06:55→22:18)
--- NOTE | 2017-08-09 07:33 | P.PN ---
Subjective Progress Note Date: 08/09/17 Principal diagnosis: Symptomatic multivessel coronary artery disease, non-STEMI, history of known coronary artery disease with prior stenting to his right coronary artery and circumflex coronary artery, morbid obesity, diabetes mellitus type II with preoperative hemoglobin A1c 9.7%, hypertension, hypertriglyceridemia with preoperative triglyceride level 478, osteoarthritis, remote history of pneumonia , current nicotine dependence with preoperative FEV1 65% of predicted, chronic lumbar back pain, and GERD. Family history of premature coronary artery disease with his father dying at 63 of CAD with myocardial infarction prior to 60 years of age. POD #7 urgent coronary artery bypass grafting 3 vessels with left internal mammary artery to the left anterior descending coronary artery, reverse greater saphenous vein graft to the diagonal coronary artery, reverse greater saphenous vein grafts to the posterior lateral branch of the right coronary artery. Endoscopic vein harvest of the left greater saphenous vein, intraoperative epi- aortic ultrasound and transesophageal echocardiogram. He is currently sitting up in the recliner in no acute distress. Does complain of blurred vision and dizziness since prior to surgery, states dizziness is less today but blurred vision still there. Was seen by neurology, documented no focal deficits, brain CT ordered and was negative for any acute process, started on Antivert per primary service, neurology consulted opthamology for possible diabetic retinopathy. Objective - Vital Signs Vital signs: Vital Signs Temp 97.5 F L 08/09/17 04:00 Pulse 94 08/09/17 04:00 Resp 18 08/09/17 04:00 BP 149/81 08/09/17 04:00 Pulse Ox 98 08/09/17 04:00 Intake & Output 08/08/17 08/09/17 08/09/17 18:59 06:59 18:59 Intake Total 1320 300 Output Total 1025 Balance 1320 -725 Weight 121.3 kg Intake: Oral 1320 300 Output: Urine 1025 Other: Voiding Method Toilet Urinal # Voids 1 ABP, PAP, CO, CI - Last Documented Arterial Blood Pressure 144/66 Pulmonary Artery Pressure 28/17 Cardiac Output 6.5 Cardiac Index 2.8 - Constitutional General appearance: Present: cooperative, no acute distress, obese - Respiratory Details: Lungs sounds diminished bilaterally. Respirations even, nonlabored. Currently on room air with oxygen saturation 98%. Able to achieve 1000 mL on his incentive spirometry. Positive productive cough. - Cardiovascular Details: S1, S2 present. Regular rate and rhythm, sinus rhythm to sinus tach on telemetry. Sternum stable. Palpable peripheral pulses bilaterally. Bilateral lower extremity edema present. No complaints of calf pain or tenderness. Heart hugger in place with patient demonstrating appropriate use. Antiembolism stockings, SCDs present. - Gastrointestinal Gastrointestinal Comment(s): Abdomen soft, nontender, nondistended, obese. Active bowel sounds 4 quadrants. Tolerating diet. Positive bowel movement. - Genitourinary Genitourinary Comment(s): Continues to void clear, yellow urine. - Integumentary Integumentary Comment(s): Skin is warm and dry with evidence of good perfusion. Anterior chest incision well approximated and covered with dry intact dressing. Left lower extremity EVH site well approximated - Neurologic Neurologic: Present: CNII-XII intact - Musculoskeletal Musculoskeletal: Present: gait normal, strength equal bilaterally - Psychiatric Psychiatric: Present: A&O x's 3, appropriate affect, intact judgment & insight - Allied health notes Allied health notes reviewed: nursing - Labs CBC & Chem 7: 08/09/17 05:35 08/09/17 05:35 Labs: Abnormal Lab Results - Last 24 Hours (Table) 08/08/17 08/08/17 08/08/17 Range/Units 11:37 16:32 20:43 RBC (4.30-5.90) m/uL Hgb (13.0-17.5) gm/dL Hct (39.0-53.0) % BUN (9-20) mg/dL Glucose (74-99) mg/dL POC Glucose (mg/dL) 180 H 256 H 187 H (75-99) mg/dL 08/09/17 08/09/17 08/09/17 Range/Units 02:27 05:35 05:35 RBC 2.94 L (4.30-5.90) m/uL Hgb 9.2 L (13.0-17.5) gm/dL Hct 27.4 L (39.0-53.0) % BUN 31 H (9-20) mg/dL Glucose 232 H (74-99) mg/dL POC Glucose (mg/dL) 207 H (75-99) mg/dL 08/09/17 Range/Units 06:10 RBC (4.30-5.90) m/uL Hgb (13.0-17.5) gm/dL Hct (39.0-53.0) % BUN (9-20) mg/dL Glucose (74-99) mg/dL POC Glucose (mg/dL) 223 H (75-99) mg/dL - Imaging and Cardiology Chest x-ray: image reviewed Assessment and Plan (1) H/O heart artery stent Current Visit: Yes Status: Chronic Code(s): Z95.5 - PRESENCE OF CORONARY ANGIOPLASTY IMPLANT AND GRAFT SNOMED Code(s): 345891379 (2) Morbid obesity with BMI of 40.0-44.9, adult Current Visit: Yes Status: Chronic Code(s): E66.01 - MORBID (SEVERE) OBESITY DUE TO EXCESS CALORIES; Z68.41 - BODY MASS INDEX (BMI) 40.0-44.9, ADULT SNOMED Code(s): 140968118 (3) Non-STEMI (non-ST elevated myocardial infarction) Current Visit: Yes Status: Acute Code(s): I21.4 - NON-ST ELEVATION (NSTEMI) MYOCARDIAL INFARCTION SNOMED Code(s): 438785186 (4) Hypertriglyceridemia Current Visit: Yes Status: Chronic Code(s): E78.1 - PURE HYPERGLYCERIDEMIA SNOMED Code(s): 367046440 (5) Coronary artery disease Current Visit: Yes Status: Chronic Code(s): I25.10 - ATHSCL HEART DISEASE OF [place] CORONARY ARTERY W/O ANG PCTRS SNOMED Code(s): 88502511 (6) Diabetes mellitus type 2 in obese Current Visit: Yes Status: Chronic Code(s): E11.69 - TYPE 2 DIABETES MELLITUS WITH OTHER SPECIFIED COMPLICATION; E66.9 - OBESITY, UNSPECIFIED SNOMED Code(s): 79998830 (7) GERD (gastroesophageal reflux disease) Current Visit: Yes Status: Chronic Code(s): K21.9 - GASTRO-ESOPHAGEAL REFLUX DISEASE WITHOUT ESOPHAGITIS SNOMED Code(s): 716801453 (8) History of pneumonia Current Visit: No Status: Resolved Code(s): Z87.01 - PERSONAL HISTORY OF PNEUMONIA (RECURRENT) SNOMED Code(s): 717221649 (9) Hypertension Current Visit: Yes Status: Chronic Code(s): I10 - ESSENTIAL (PRIMARY) HYPERTENSION SNOMED Code(s): 02111000 (10) Nicotine dependence Current Visit: Yes Status: Chronic Code(s): F17.200 - NICOTINE DEPENDENCE, UNSPECIFIED, UNCOMPLICATED SNOMED Code(s): 14298195 Plan: 1. Continue aspirin, statin, Plavix, subcu heparin, beta kayla. Will increase beta kayla therapy as tolerated. 2. Lisinopril discontinued secondary to hypotension. Not indicated as EF > 40% . 3. Encourage incentive spirometry use 10 times every hour. 4. Encourage smoking cessation. 5. Increase activity, ambulate in hallway. PT/OT/cardiac rehab following. 6. GI/DVT prophylaxis. 7. Will give 40 mg IV Lasix today. 8. Diabetic management per Dr. Soriano's service. Blood sugars have remained over 200 despite increase in Levemir. Needs better blood sugar control, will discuss with primary care service. 9. Will monitor daily labs and chest x-rays. 10. Will need to see general cargo clerk per neurology recommendations. 11. Discharge planning in progress. May discharge to inpatient rehab when bed available Time with Patient: Greater than 30
[2017-08-09] MEDS: CLOPIDOGREL 75 MG TAB PO SCH (08:07)
[2017-08-09] MEDS: ASPIRIN 325 MG TAB PO SCH (08:07)
[2017-08-09] MEDS: HEPARIN SODIUM,PORCINE 5,000 UNIT/ML 1 ML VIAL SQ SCH ×3 (08:07→23:30)
[2017-08-09] MEDS: MECLIZINE 12.5 MG TAB PO SCH ×2 (08:08→21:02)
[2017-08-09] MEDS: ATORVASTATIN 40 MG TAB PO SCH (08:08)
[2017-08-09] MEDS: METOPROLOL TARTRATE 50 MG TAB PO SCH ×2 (08:09→21:02)
--- NOTE | 2017-08-09 08:12 | XR ---
EXAMINATION TYPE: XR chest 2V DATE OF EXAM: 08/09/2017 COMPARISON: 08/08/2017 TECHNIQUE: PA and lateral views submitted. HISTORY: post cardiac surgery FINDINGS: The heart is enlarged and there is postoperative change. Bilateral infiltrate and small effusion note d. Findings greater on the right. No overt failure. IMPRESSION: 1. Bilateral infiltrate and small effusion. 2. Cardiomegaly and postoperative changes.
[2017-08-09] MEDS ORDERED: FUROSEMIDE 10 MG/ML 4 ML VIAL IV STA (10:25)
--- NOTE | 2017-08-09 10:55 | P.PN ---
Subjective Progress Note Date: 08/09/17 Principal diagnosis: Coronary artery diseaseAnel Gunn is a 47-year-old white male patient who follows with Dr. Araujo, presented to the emergency department on 07/28/2017 at 2215 with complaints of a burning sensation in the left arm, chest discomfort, not feeling well, nausea , and shortness of breath. Patient denied any fever or chills. Denied any cough or congestion. Past medical history includes coronary artery disease, diabetes mellitus, GERD/reflux, hyperlipidemia, hypertension, previous myocardial infarction, osteoarthritis, pneumonia, colitis, nephrolithiasis. Patient is a current smoker, has smoked for close to 35 years. He has a daily alcohol intake. EKG completed in the emergency room showed normal sinus rhythm with T-wave inversion in lead III and aVF. Chest x-ray was negative for any acute cardiopulmonary process. Blood work showed a EDC of 6.7, hemoglobin of 15.1, d-dimer was negative at 0.50, electrolytes were within normal limits, renal profile was normal. First and second Troponins were elevated at 0.044, 0.035. Patient was noted to have mild elevation of his AST, ALT, and alkaline phosphatase, at 67, 202, and 148 respectively. Lipase was 303, serum alcohol was less than 10. Patient underwent cardiac catheterization which revealed disease in the LAD at 60-70% involving the ostial portion, circumflex coronary artery that was previously stented was patent. There was a 95% stenosis in the right coronary artery proximally. There was a 60% stenosis before the bifurcation into PDA and PLV, with a PDA being diffusely diseased. Cardiothoracic surgery was consulted for evaluation for coronary artery bypass grafting. We are consulted for preop CABG pulmonary evaluation and postop CABG pulmonary management. On 08/03/2017, the patient is postop day #1 following coronary to bypass surgery. The patient underwent three-vessel bypass with OMALLEY to LAD, saphenous vein graft to diagonal, posterior lateral branch of RCA. The patient came into the intensive care unit intubated on a mechanical ventilator. Within 6 hours of arrival, the patient was weaned off the mechanical ventilator and the patient was extubated without any major difficulties. The patient is awake and alert this morning sitting up on a chair. The patient has a adequate hemodynamic with adequate cardiac output index. The Barling-Jt catheter will be removed. The chest x-ray shows small better pleural effusion and the chest tubes are all in good location. The patient was having some issues with hypertension. He was briefly placed on Cleviprex which was discontinued. Currently the patient is on nitroglycerin at 5 mcg/m. The patient is also on Lopressor this will be started this morning. He is afebrile. He is having adequate pain control. Sternum stable clean and intact. No change in mental status. He is following commands and answering questions appropriately. His underlying rhythm is sinus. His hemoglobin is at 11.4. The chest tube output from the left was 165 mL during this last shift and from the mediastinum is down 96 and mouth for the next shift. The patient's body weight is 121 kg. He will be encouraged to use the incentive spirometer. No other significant events overnight. On 08/04/2017 I'm seeing this patient for a follow-up. The patient is postop day #2. He is sitting up on a chair. He has still mediastinal chest tubes and a left pleural chest tube. This sometimes will be removed today 9 and output has been low. The patient remains hemodynamic is stable. The patient is off the nitroglycerin drip. The patient is maintaining his own blood pressure. Slightly tachycardic and we have made suggestions to increase the metoprolol to 50 mg by mouth twice a day. He is also on 5 mg of lisinopril for blood pressure control. He is on insulin drip which will be switched to Lantus insulin. He is taking 40 units of insulin drip on an hourly basis. He is tolerating his diet. No nausea or vomiting. Sternum stable clean and intact. Hemodynamically stable. He is in a sinus rhythm. He mentions that no cold is giving him side effects and the hives made recommendations to switch him to Tylenol 3 for pain control. He is doing well. No other significant events over the past 24 hours. Neurologically awake and alert. On 08/05/2017 I'm seeing this patient for a follow-up and is postop day #3. The mediastinal tubes have been removed. The patient has a left pleural chest tube and output of which is minimal and can be taken out. He is hemodynamically stable. His pain is under good control with Tylenol threes. His blood sugar needs to be further adjusted knowing that the patient is still having some limited blood sugar elevation and I will suggest increasing the Lantus dose at baseline. No altered mentation. No agitation. He is requesting a Xanax to help him with sleep at nighttime. Otherwise, he is hemodynamically stable and there has been no other significant events over the past 24 hours. On 08/06/2017 the patient is postop day #4. The patient is doing extremely well from the hemodynamic standpoint. Chest tubes have been removed. Pacemaker wires have been removed. The patient had a chest x-ray this morning that showed some cardiomegaly and limited left basilar atelectasis and small effusions. Otherwise the right lung is clear. The patient is on room air. He is having some issues with sleeping. Earlier this morning he was also found to have some early signs of delirium tremens and he was given a milligram of Ativan. He is not able to sleep well overnight. He feels a bit lethargic today and resolving some morning headaches. No change in mental status. No hallucinations. No delusions. No focal neurological deficits. Pupils are equal and reactive to light. No seizure activity. He is able to ambulate. His pulling approximately 1500 on his incentive spirometer. The patient has adequate pain control. He is on Tylenol 3. Sternum stable clean and intact. No other significant events overnight. The patient is seen again today 08/07/2017 in follow-up on the selective care unit. This is postoperative day #5. He is awake and alert in no acute distress. His pain is well managed. He's been up ambulating with assistance. He is currently maintaining good O2 saturations in the high 90s on room air. He continues to work well with his incentive spirometer. White count 6.7. Hemoglobin 10.0. Creatinine 1.00. On 08 08 2017 the patient is being seen for a follow-up. The patient is looking well. Patient is postop day #6 following three-vessel bypass surgery. The patient has adequate pain control. He has not taken his Tylenol 3. No respiratory difficulties. Neurology evaluated this patient and the patient has no deficits for now. CAT scan of the brain was also negative. He is on Antivert for now. No cough. No sputum production. No fever or chills. No other significant events overnight. Pulse oxing 95%. Chest tubes are out. The chest x-ray from today showed some small left-sided pleural effusion and there is also pulmonary vessel congestion. The patient is seen again today 08/09/2017 in follow-up on the selective care unit. He is awake and alert in no acute distress. He's been up ambulating in the hallway without significant distress. He denies any worsening shortness of breath, cough or congestion. Is working well of the incentive spirometer. Maintaining good O2 saturations in the upper 90s on room air. This x-ray is stable showing bilateral infiltrates and small effusions. No significant change. He is afebrile. White count 8.7. Hemoglobin 9.2. Creatinine 0.97. Objective - Vital Signs Vital signs: Vital Signs Temp 98.3 F 08/09/17 07:58 Pulse 101 H 08/09/17 07:58 Resp 20 08/09/17 07:58 BP 127/78 08/09/17 07:58 Pulse Ox 98 08/09/17 04:00 Intake & Output 08/08/17 08/09/17 08/09/17 18:59 06:59 18:59 Intake Total 1320 300 240 Output Total 1025 Balance 1320 -725 240 Weight 121.3 kg Intake: Oral 1320 300 240 Output: Urine 1025 Other: Voiding Method Toilet Urinal # Voids 1 ABP, PAP, CO, CI - Last Documented Arterial Blood Pressure 144/66 Pulmonary Artery Pressure 28/17 Cardiac Output 6.5 Cardiac Index 2.8 - Exam GENERAL EXAM: Alert, active, comfortable in no apparent distress. HEAD: Normocephalic. EYES: Normal reaction of pupils, equal size. NOSE: Clear with pink turbinates. THROAT: No erythema or exudates. NECK: No masses, no JVD. CHEST: Incision clean dry well approximated. Sternum stable. LUNGS: Equal air entry with crackles in the posterior bases.. CVS: S1 and S2 normal with no audible murmur, regular rhythm. ABDOMEN: No hepatosplenomegaly, normal bowel sounds, no guarding or rigidity. SPINE: No scoliosis or deformity SKIN: No rashes CENTRAL NERVOUS SYSTEM: No focal deficits, tone is normal in all 4 extremities. EXTREMITIES: There is no peripheral edema. No clubbing, no cyanosis. Peripheral pulses are intact. - Labs CBC & Chem 7: 08/09/17 05:35 08/09/17 05:35 Labs: Abnormal Lab Results - Last 24 Hours (Table) 08/08/17 08/08/17 08/08/17 Range/Units 11:37 16:32 20:43 RBC (4.30-5.90) m/uL Hgb (13.0-17.5) gm/dL Hct (39.0-53.0) % BUN (9-20) mg/dL Glucose (74-99) mg/dL POC Glucose (mg/dL) 180 H 256 H 187 H (75-99) mg/dL 08/09/17 08/09/17 08/09/17 Range/Units 02:27 05:35 05:35 RBC 2.94 L (4.30-5.90) m/uL Hgb 9.2 L (13.0-17.5) gm/dL Hct 27.4 L (39.0-53.0) % BUN 31 H (9-20) mg/dL Glucose 232 H (74-99) mg/dL POC Glucose (mg/dL) 207 H (75-99) mg/dL 08/09/17 Range/Units 06:10 RBC (4.30-5.90) m/uL Hgb (13.0-17.5) gm/dL Hct (39.0-53.0) % BUN (9-20) mg/dL Glucose (74-99) mg/dL POC Glucose (mg/dL) 223 H (75-99) mg/dL Assessment and Plan Assessment: Assessment: #1. Symptomatic coronary artery disease, cardiac catheterization performed showed severe proximal stenosis of the RCA, progression of stenosis of the proximal LAD and patent circumflex stents. Status post coronary artery bypass grafting 3 with OMALLEY to LAD, saphenous vein grafts to the diagonal artery and posterior branch of the right coronary artery. #2. History of coronary artery disease, with prior stenting of the circumflex artery and prior history of myocardial infarction #3. Diabetes mellitus type 2 #4. Nicotine dependence, ongoing #5. Daily alcohol intake, patient drinks around a pint of Rum a day #6. Hyperlipidemia, hypertension #7. GERD/reflux #8. Chronic lumbar pain #9. Osteoarthritis #10. History of nephrolithiasis Plan: The patient was seen and evaluated by Dr. Askew. He is stable from the pulmonary standpoint. His chest x-ray reviewed. He continues to work well of the incentive spirometer. We'll increase his activity as tolerated. We'll continue to follow. Plan is for transfer to inpatient rehabilitation the bed is available. I, the cosigning physician, performed a history & physical examination of the patient. Lungs sounds a crackles in the bilateral posterior bases. Maintaining good O2 saturations in the 90s on room air. I discussed the assessment and plan of care with my nurse practitioner, Amanda Durand. I attest to the above note as dictated by her.
--- NOTE | 2017-08-09 11:02 | P.PN ---
Subjective Progress Note Date: 08/09/17 This is a 47-year-old gentleman who is status post coronary artery bypass grafting surgery, patient underwent three-vessel bypass with a OMALLEY to the LAD, saphenous vein graft to the diagonal, posterior lateral branch of the RCA. He was seen and examined in the intensive care unit this morning. Denies any chest pain, breathing overall has been stable. He does complain of a headache which she states he's had for the past day and a half with associated dizziness. He also states that he has not been sleeping well. Patient was going through some DVTs and was given Ativan. Blood pressure 114/66 with a heart rate in the 90s. White blood cell count 7.1, hemoglobin 8.7, platelet count 152. Sodium 135, potassium 5.2 BUN 45, creatinine 1.2. 08/07/2017 Patient seen and examined this morning, still having headache with blurring of vision. CT negative. Hemodynamically stable. Potassium 5.3, BUN 41, creatinine 1.0. 08/09/2017 Patient seen and examined this morning, he's been up ambulating in the hallway without any difficulty. Denies any chest discomfort, breathing overall has been stable. Blood pressure 142/68 with a heart rate of 90. White blood cell count 8.7, hemoglobin 9.2, platelet count 271. Sodium 139, potassium 5.0, BUN 31, creatinine 0.9. Objective - Vital Signs Vital signs: Vital Signs Temp 98.3 F 08/09/17 07:58 Pulse 101 H 08/09/17 07:58 Resp 20 08/09/17 07:58 BP 127/78 08/09/17 07:58 Pulse Ox 98 08/09/17 04:00 Intake & Output 08/08/17 08/09/17 08/09/17 18:59 06:59 18:59 Intake Total 1320 300 240 Output Total 1025 Balance 1320 -725 240 Weight 121.3 kg Intake: Oral 1320 300 240 Output: Urine 1025 Other: Voiding Method Toilet Urinal # Voids 1 ABP, PAP, CO, CI - Last Documented Arterial Blood Pressure 144/66 Pulmonary Artery Pressure 28/17 Cardiac Output 6.5 Cardiac Index 2.8 - Exam PHYSICAL EXAMINATION: HEENT: Head is atraumatic, normocephalic. Pupils equal, round. Neck is supple. There is no elevated jugular venous pressure. HEART EXAMINATION: Heart S1, S2 normal. No murmur or gallop heard. CHEST EXAMINATION: lungs reveal diminished air entry to bilateral bases. ABDOMEN: Soft, nontender. Bowel sounds are heard. No organomegaly noted. EXTREMITIES: 2+ peripheral pulses with no evidence of peripheral edema and no calf tenderness noted. NEUROLOGIC patient is awake, alert and oriented -3. Complaining of mild dizziness and associated headache . - Labs CBC & Chem 7: 08/09/17 05:35 08/09/17 05:35 Labs: Abnormal Lab Results - Last 24 Hours (Table) 08/08/17 08/08/17 08/08/17 Range/Units 11:37 16:32 20:43 RBC (4.30-5.90) m/uL Hgb (13.0-17.5) gm/dL Hct (39.0-53.0) % BUN (9-20) mg/dL Glucose (74-99) mg/dL POC Glucose (mg/dL) 180 H 256 H 187 H (75-99) mg/dL 08/09/17 08/09/17 08/09/17 Range/Units 02:27 05:35 05:35 RBC 2.94 L (4.30-5.90) m/uL Hgb 9.2 L (13.0-17.5) gm/dL Hct 27.4 L (39.0-53.0) % BUN 31 H (9-20) mg/dL Glucose 232 H (74-99) mg/dL POC Glucose (mg/dL) 207 H (75-99) mg/dL 08/09/17 Range/Units 06:10 RBC (4.30-5.90) m/uL Hgb (13.0-17.5) gm/dL Hct (39.0-53.0) % BUN (9-20) mg/dL Glucose (74-99) mg/dL POC Glucose (mg/dL) 223 H (75-99) mg/dL Assessment and Plan Plan: Assessment and plan #1 status post coronary artery bypass grafting surgery #2 known history of coronary artery disease with prior stent placement #3 diabetes #4 nicotine dependence #5 hypertension #6 hyperlipidemia #7 symptoms of dizziness and headache, CT of the brain ordered #8 daily alcohol intake, status post DTs Plan From cardiology's perspective, we will continue the patient on his current medications. Discharge to rehab or home when cleared by cardiothoracic surgery. DNP note has been reviewed, I agree with a documented findings and plan of care. Patient was seen and examined.
[2017-08-09] MEDS: FOLIC ACID 1 MG TAB PO SCH (11:29)
[2017-08-09] MEDS: MULTIVITAMINS, THERA 1 EACH TAB PO SCH (11:29)
[2017-08-09] MEDS: THIAMINE 100 MG TAB PO SCH ×2 (11:29→16:07)
[2017-08-09 11:44] LABS: Glucose,Whole Blood 171 mg/dL (75-99)
[2017-08-09 16:58] LABS: Glucose,Whole Blood 211 mg/dL (75-99)
--- NOTE | 2017-08-09 17:57 | P.PN ---
Subjective Progress Note Date: 08/09/17 This patient is a 47-year-old male who is postoperative day 5 following coronary artery bypass grafting. He was transferred out of the intensive care unit yesterday and complained of symptoms of visual blurring and dizziness. He underwent a urgent computed tomography scan of the brain which was negative for any acute abnormalities. MRI of the brain has been recommended. Patient continues to show slight improvement. His vision continues to show signs of blurriness. We have consulted ophthalmology for further assessment. The patient otherwise seems to be doing fairly well. As noted he is postoperative day #7. He does have history of underlying diabetes mellitus and his last hemoglobin A1c was elevated at 9.7. This may also be contributing to some of the visual changes possibly secondary to diabetic retinopathy. We will await further recommendations from ophthalmology. We have recommended patient to be evaluated by ophthalmology for possible diabetic retinopathy changes producing his visual changes. Patient has been up and ambulating in the hallway today and has shown some improvement overall. He denies any significant dizziness today on ambulation. He is awaiting transfer to inpatient rehab where he will undergo more extensive rehabilitation following his recent heart bypass surgery. He continues to do fairly well terms of his surgical recovery. Patient's dizziness has improved today. His vision still gives him difficulty and has noted we have recommended an ophthalmology consultation. Patient seems to be making good recovery from his recent heart surgery. As noted he is postoperative day #7 today. He has been up and ambulating in the hallway without any difficulty. Patient likely can have follow-up as outpatient with the drywall finishing foreman regarding his visual changes. He is waiting possible transfer to inpatient rehab once a bed is available. We will continue to follow his progress closely during this admission. Objective - Vital Signs Vital signs: Vital Signs Temp 98.3 F 08/09/17 07:58 Pulse 85 08/09/17 11:11 Resp 20 08/09/17 11:11 BP 132/68 08/09/17 11:11 Pulse Ox 98 08/09/17 04:00 Intake & Output 08/08/17 08/09/17 08/09/17 18:59 06:59 18:59 Intake Total 1320 300 600 Output Total 1025 500 Balance 1320 -725 100 Weight 121.3 kg Intake: Oral 1320 300 600 Output: Urine 1025 500 Other: Voiding Method Toilet Urinal # Voids 1 ABP, PAP, CO, CI - Last Documented Arterial Blood Pressure 144/66 Pulmonary Artery Pressure 28/17 Cardiac Output 6.5 Cardiac Index 2.8 - Exam Physical examination: PHYSICAL EXAMINATION: Patient is resting comfortably in bed. VITAL SIGNS: Blood pressure is [127/78]. Heart rate is [101]. Respiration is [20 ]. Temperature is [98.3]. HEENT: Head is atraumatic, neck is supple, there were no carotid bruits. CHEST: Lungs are clear to auscultation and percussion. CARDIAC: S1, S2 normal rate and rhythm. There is no murmur. ABDOMEN: Soft and nontender. Bowel sounds are present. EXTREMITIES: There is no pedal edema. Peripheral pulses are present. Neurological examination: Patient's neurological examination is unchanged from yesterday. Patient has less symptoms of dizziness today on examination. Still complains of some blurred vision. Patient has been ambulating in the hallway with no difficulties with his gait. He has no symptoms of dizziness. - Labs CBC & Chem 7: 08/09/17 05:35 08/09/17 05:35 Labs: Abnormal Lab Results - Last 24 Hours (Table) 08/08/17 08/08/17 08/09/17 Range/Units 16:32 20:43 02:27 RBC (4.30-5.90) m/uL Hgb (13.0-17.5) gm/dL Hct (39.0-53.0) % BUN (9-20) mg/dL Glucose (74-99) mg/dL POC Glucose (mg/dL) 256 H 187 H 207 H (75-99) mg/dL 08/09/17 08/09/17 08/09/17 Range/Units 05:35 05:35 06:10 RBC 2.94 L (4.30-5.90) m/uL Hgb 9.2 L (13.0-17.5) gm/dL Hct 27.4 L (39.0-53.0) % BUN 31 H (9-20) mg/dL Glucose 232 H (74-99) mg/dL POC Glucose (mg/dL) 223 H (75-99) mg/dL 08/09/17 Range/Units 11:32 RBC (4.30-5.90) m/uL Hgb (13.0-17.5) gm/dL Hct (39.0-53.0) % BUN (9-20) mg/dL Glucose (74-99) mg/dL POC Glucose (mg/dL) 171 H (75-99) mg/dL Assessment and Plan (1) Status post coronary artery bypass grafting Current Visit: Yes Status: Acute Code(s): Z95.1 - PRESENCE OF AORTOCORONARY BYPASS GRAFT SNOMED Code(s): 399983724 (2) Blurred vision, bilateral Current Visit: Yes Status: Acute Code(s): H53.8 - OTHER VISUAL DISTURBANCES SNOMED Code(s): 535579590 (3) Dizziness Current Visit: Yes Status: Acute Code(s): R42 - DIZZINESS AND GIDDINESS SNOMED Code(s): 928221033 (4) Hypertension Current Visit: Yes Status: Chronic Code(s): I10 - ESSENTIAL (PRIMARY) HYPERTENSION SNOMED Code(s): 89864008 (5) Morbid obesity with BMI of 40.0-44.9, adult Current Visit: Yes Status: Chronic Code(s): E66.01 - MORBID (SEVERE) OBESITY DUE TO EXCESS CALORIES; Z68.41 - BODY MASS INDEX (BMI) 40.0-44.9, ADULT SNOMED Code(s): 552589464 (6) Diabetes Current Visit: No Status: Acute Code(s): E11.9 - TYPE 2 DIABETES MELLITUS WITHOUT COMPLICATIONS SNOMED Code(s): 93680508 Plan: This patient is a 47-year-old male who is postoperative day 7 following coronary artery bypass grafting. He has been up and ambulating in the hallway today without difficulty. He was initially evaluated for symptoms of headache and dizziness with a computed tomography scan of the brain which was negative. He is been active today and has had no further recurrence of dizziness. He is maintaining good oxygen saturations with numbers in the upper 90s. Chest x-ray reveals him to have bilateral infiltrates with small effusions. He is afebrile. He is being closely monitored for early signs of delirium tremens as he does have a history of daily alcohol use prior to admission. So far he has been doing well. Plan is to transfer him to inpatient rehab once a bed is available. We will continue to follow his progress closely during this admission.
[2017-08-09] MEDS: SENNOSIDES-DOCUSATE SODIUM 1 EACH TAB PO SCH (21:02)
[2017-08-09 21:03] LABS: Glucose,Whole Blood 252 mg/dL (75-99)
[2017-08-09] MEDS: ALPRAZolam 0.5 MG TAB PO PRN (22:18)
[2017-08-09] MEDS ORDERED: INSULIN DETEMIR 100 UNIT/ML 10 ML VIAL SQ SCH (22:20)
[2017-08-09] MEDS: INSULIN DETEMIR 100 UNIT/ML 10 ML VIAL SQ SCH (22:46)
[2017-08-10 02:06] LABS: Glucose,Whole Blood 240 mg/dL (75-99)
[2017-08-10 06:08] LABS: Glucose,Whole Blood 230 mg/dL (75-99)
[2017-08-10 06:33] LABS: HCT 25.7 % (39.0-53.0); HGB 8.4 gm/dL (13.0-17.5); Hypochromasia Slight; MCH 30.5 pg (25.0-35.0); MCHC 32.8 g/dL (31.0-37.0); MCV 92.8 fL (80.0-100.0); Mean Platelet Volume 7.7; Platelet Count 308 k/uL (150-450); Poikilocytosis Moderate; RBC 2.77 m/uL (4.30-5.90); RDW 13.9 % (11.5-15.5); WBC 9.3 k/uL (3.8-10.6)
[2017-08-10 06:43] LABS: Anion Gap 8 mmol/L; Blood Urea Nitrogen 29 mg/dL (9-20); Calcium 8.7 mg/dL (8.4-10.2); Carbon Dioxide 31 mmol/L (22-30); Chloride 98 mmol/L (98-107); Glucose 220 mg/dL (74-99); Potassium 4.6 mmol/L (3.5-5.1); Sodium 137 mmol/L (137-145)
[2017-08-10] MEDS: INSULIN ASPART 100 UNIT/ML 1 ML 10 ML VIAL SQ SCH ×7 (06:59→20:51)
[2017-08-10] MEDS: PANTOPRAZOLE 40 MG TABLET PO SCH (06:59)
[2017-08-10] MEDS: HYDROcodone/APAP 10-325MG 1 EACH TAB PO PRN ×3 (08:12→22:07)
[2017-08-10] MEDS: HEPARIN SODIUM,PORCINE 5,000 UNIT/ML 1 ML VIAL SQ SCH ×2 (08:13→16:45)
--- NOTE | 2017-08-10 08:13 | XR ---
EXAMINATION TYPE: XR chest 2V DATE OF EXAM: 08/10/2017 COMPARISON: 08/09/2017 TECHNIQUE: PA and lateral views submitted. HISTORY: Postop FINDINGS: The heart is enlarged and there is postoperative change. Bilateral infiltrate and small effusion note d. Findings greater on the right. Hypertrophic and degenerative change of the spine. IMPRESSION: 1. Bilateral infiltrate and small effusion stable. Mild central venous congestion in the differential diagnosis. 2. Cardiomegaly and postoperative changes.
[2017-08-10] MEDS: ASPIRIN 325 MG TAB PO SCH (08:14)
[2017-08-10] MEDS: MECLIZINE 12.5 MG TAB PO SCH ×2 (08:14→20:35)
[2017-08-10] MEDS: CLOPIDOGREL 75 MG TAB PO SCH (08:14)
[2017-08-10] MEDS: ATORVASTATIN 40 MG TAB PO SCH (08:14)
[2017-08-10] MEDS: METOPROLOL TARTRATE 50 MG TAB PO SCH ×2 (08:15→20:35)
--- NOTE | 2017-08-10 11:36 | P.PN ---
Subjective Progress Note Date: 08/10/17 Principal diagnosis: Symptomatic multivessel coronary artery disease, non-STEMI, history of known coronary artery disease with prior stenting to his right coronary artery and circumflex coronary artery, morbid obesity, diabetes mellitus type II with preoperative hemoglobin A1c 9.7%, hypertension, hypertriglyceridemia with preoperative triglyceride level 478, osteoarthritis, remote history of pneumonia , current nicotine dependence with preoperative FEV1 65% of predicted, chronic lumbar back pain, and GERD. Family history of premature coronary artery disease with his father dying at 63 of CAD with myocardial infarction prior to 60 years of age. POD #8 urgent coronary artery bypass grafting 3 vessels with left internal mammary artery to the left anterior descending coronary artery, reverse greater saphenous vein graft to the diagonal coronary artery, reverse greater saphenous vein grafts to the posterior lateral branch of the right coronary artery. Endoscopic vein harvest of the left greater saphenous vein, intraoperative epi- aortic ultrasound and transesophageal echocardiogram. He is currently sitting up in the recliner in no acute distress. Does complain of blurred vision and dizziness since prior to surgery, states dizziness is less today but blurred vision still there. Was seen by neurology, documented no focal deficits, brain CT ordered and was negative for any acute process, started on Antivert per primary service, neurology consulted opthamology for possible diabetic retinopathy. Patient has been up ambulating in the hallway. He is ready for discharge from a medical standpoint however no one is available at home from a safety standpoint and to get him to his doctor appointments, and he does not meet criteria for rehab placement. Objective - Vital Signs Vital signs: Vital Signs Temp 98.4 F 08/10/17 07:59 Pulse 101 H 08/10/17 07:59 Resp 18 08/10/17 07:59 BP 114/74 08/10/17 07:59 Pulse Ox 97 08/10/17 03:30 Intake & Output 08/09/17 08/10/17 08/10/17 18:59 06:59 18:59 Intake Total 960 600 Output Total 500 Balance 460 600 Weight 119.3 kg Intake: Oral 960 600 Output: Urine 500 Other: Voiding Method Toilet Urinal # Voids 2 ABP, PAP, CO, CI - Last Documented Arterial Blood Pressure 144/66 Pulmonary Artery Pressure 28/17 Cardiac Output 6.5 Cardiac Index 2.8 - Constitutional General appearance: Present: cooperative, no acute distress, obese - Respiratory Details: Lungs sounds diminished bilaterally. Respirations even, nonlabored. Currently on room air with oxygen saturation 97%. Able to achieve 1500 mL on his incentive spirometry. Weak cough. - Cardiovascular Details: S1, S2 present. Regular rate and rhythm, sinus rhythm on telemetry. Sternum stable. Palpable peripheral pulses bilaterally. Bilateral lower extubated edema still present. No calf pain or tenderness noted. Heart hugger in place with patient demonstrating appropriate use. - Gastrointestinal Gastrointestinal Comment(s): Abdomen soft, nontender, nondistended. Active bowel sounds 4 quadrants. Tolerating diet. - Genitourinary Genitourinary Comment(s): Continues to void. - Integumentary Integumentary Comment(s): Skin is warm and dry with evidence of good perfusion. Anterior chest incision well approximated and covered with dry intact dressing. Left lower extremity EVH site well approximated. - Neurologic Neurologic: Present: CNII-XII intact - Musculoskeletal Musculoskeletal: Present: gait normal, strength equal bilaterally - Psychiatric Psychiatric Comment(s): Flat affect. Psychiatric: Present: A&O x's 3, intact judgment & insight - Allied health notes Allied health notes reviewed: nursing - Labs CBC & Chem 7: 08/10/17 06:03 08/10/17 06:03 Labs: Abnormal Lab Results - Last 24 Hours (Table) 08/09/17 08/09/17 08/09/17 Range/Units 11:32 16:22 21:00 RBC (4.30-5.90) m/uL Hgb (13.0-17.5) gm/dL Hct (39.0-53.0) % Carbon Dioxide (22-30) mmol/L BUN (9-20) mg/dL Glucose (74-99) mg/dL POC Glucose (mg/dL) 171 H 211 H 252 H (75-99) mg/dL 08/10/17 08/10/17 08/10/17 Range/Units 02:04 06:03 06:03 RBC 2.77 L (4.30-5.90) m/uL Hgb 8.4 L (13.0-17.5) gm/dL Hct 25.7 L (39.0-53.0) % Carbon Dioxide 31 H (22-30) mmol/L BUN 29 H (9-20) mg/dL Glucose 220 H (74-99) mg/dL POC Glucose (mg/dL) 240 H (75-99) mg/dL 08/10/17 Range/Units 06:06 RBC (4.30-5.90) m/uL Hgb (13.0-17.5) gm/dL Hct (39.0-53.0) % Carbon Dioxide (22-30) mmol/L BUN (9-20) mg/dL Glucose (74-99) mg/dL POC Glucose (mg/dL) 230 H (75-99) mg/dL - Imaging and Cardiology Chest x-ray: report reviewed, image reviewed Assessment and Plan (1) H/O heart artery stent Current Visit: Yes Status: Chronic Code(s): Z95.5 - PRESENCE OF CORONARY ANGIOPLASTY IMPLANT AND GRAFT SNOMED Code(s): 684960255 (2) Morbid obesity with BMI of 40.0-44.9, adult Current Visit: Yes Status: Chronic Code(s): E66.01 - MORBID (SEVERE) OBESITY DUE TO EXCESS CALORIES; Z68.41 - BODY MASS INDEX (BMI) 40.0-44.9, ADULT SNOMED Code(s): 180965427 (3) Non-STEMI (non-ST elevated myocardial infarction) Current Visit: Yes Status: Acute Code(s): I21.4 - NON-ST ELEVATION (NSTEMI) MYOCARDIAL INFARCTION SNOMED Code(s): 727439302 (4) Hypertriglyceridemia Current Visit: Yes Status: Chronic Code(s): E78.1 - PURE HYPERGLYCERIDEMIA SNOMED Code(s): 341158761 (5) Coronary artery disease Current Visit: Yes Status: Chronic Code(s): I25.10 - ATHSCL HEART DISEASE OF [place] CORONARY ARTERY W/O ANG PCTRS SNOMED Code(s): 58039117 (6) Diabetes mellitus type 2 in obese Current Visit: Yes Status: Chronic Code(s): E11.69 - TYPE 2 DIABETES MELLITUS WITH OTHER SPECIFIED COMPLICATION; E66.9 - OBESITY, UNSPECIFIED SNOMED Code(s): 78062584 (7) GERD (gastroesophageal reflux disease) Current Visit: Yes Status: Chronic Code(s): K21.9 - GASTRO-ESOPHAGEAL REFLUX DISEASE WITHOUT ESOPHAGITIS SNOMED Code(s): 992873200 (8) History of pneumonia Current Visit: No Status: Resolved Code(s): Z87.01 - PERSONAL HISTORY OF PNEUMONIA (RECURRENT) SNOMED Code(s): 151231151 (9) Hypertension Current Visit: Yes Status: Chronic Code(s): I10 - ESSENTIAL (PRIMARY) HYPERTENSION SNOMED Code(s): 77398820 (10) Nicotine dependence Current Visit: Yes Status: Chronic Code(s): F17.200 - NICOTINE DEPENDENCE, UNSPECIFIED, UNCOMPLICATED SNOMED Code(s): 64766220 Plan: 1. Continue aspirin, statin, Plavix, subcu heparin, beta kayla. Will increase beta kayla therapy as tolerated. 2. Encourage incentive spirometry use 10 times every hour. 3. Encourage smoking cessation. 4. Increase activity, ambulate in hallway. PT/OT/cardiac rehab following. 5. GI/DVT prophylaxis. 6. Will give 40 mg IV Lasix today. 7. Diabetic management per Dr. Soriano's service. Blood sugars have remained over 200 despite increase in Levemir. Needs better blood sugar control, insulin increased her primary care service. 8. Will monitor daily labs and chest x-rays. 9. Will need to see workers' compensation claims supervisor per neurology recommendations. Clutch Specialist will be here later today. 10. Discharge planning in progress. May discharge once safe place is found for patient to go to or rides arranged for physician appointments. Time with Patient: Greater than 30
[2017-08-10] MEDS ORDERED: FUROSEMIDE 10 MG/ML 4 ML VIAL IV STA (11:39)
[2017-08-10 11:54] LABS: Glucose,Whole Blood 143 mg/dL (75-99)
--- NOTE | 2017-08-10 12:41 | P.PN ---
Subjective Progress Note Date: 08/10/17 This is a 47-year-old gentleman who is status post coronary artery bypass grafting surgery, patient underwent three-vessel bypass with a OMALLEY to the LAD, saphenous vein graft to the diagonal, posterior lateral branch of the RCA. He was seen and examined in the intensive care unit this morning. Denies any chest pain, breathing overall has been stable. He does complain of a headache which she states he's had for the past day and a half with associated dizziness. He also states that he has not been sleeping well. Patient was going through some DVTs and was given Ativan. Blood pressure 114/66 with a heart rate in the 90s. White blood cell count 7.1, hemoglobin 8.7, platelet count 152. Sodium 135, potassium 5.2 BUN 45, creatinine 1.2. 08/07/2017 Patient seen and examined this morning, still having headache with blurring of vision. CT negative. Hemodynamically stable. Potassium 5.3, BUN 41, creatinine 1.0. 08/09/2017 Patient seen and examined this morning, he's been up ambulating in the hallway without any difficulty. Denies any chest discomfort, breathing overall has been stable. Blood pressure 142/68 with a heart rate of 90. White blood cell count 8.7, hemoglobin 9.2, platelet count 271. Sodium 139, potassium 5.0, BUN 31, creatinine 0.9. 08/10/2017 Patient seen and examined this morning, ambulating in the hallway without any difficulty. Hemodynamically stable. Objective - Vital Signs Vital signs: Vital Signs Temp 98.4 F 08/10/17 11:47 Pulse 90 08/10/17 11:47 Resp 18 08/10/17 11:47 BP 127/78 08/10/17 11:47 Pulse Ox 97 08/10/17 03:30 Intake & Output 08/09/17 08/10/17 08/10/17 18:59 06:59 18:59 Intake Total 960 600 Output Total 500 Balance 460 600 Weight 119.3 kg Intake: Oral 960 600 Output: Urine 500 Other: Voiding Method Toilet Urinal # Voids 2 ABP, PAP, CO, CI - Last Documented Arterial Blood Pressure 144/66 Pulmonary Artery Pressure 28/17 Cardiac Output 6.5 Cardiac Index 2.8 - Exam PHYSICAL EXAMINATION: HEENT: Head is atraumatic, normocephalic. Pupils equal, round. Neck is supple. There is no elevated jugular venous pressure. HEART EXAMINATION: Heart S1, S2 normal. No murmur or gallop heard. CHEST EXAMINATION: lungs reveal diminished air entry to bilateral bases. ABDOMEN: Soft, nontender. Bowel sounds are heard. No organomegaly noted. EXTREMITIES: 2+ peripheral pulses with no evidence of peripheral edema and no calf tenderness noted. NEUROLOGIC patient is awake, alert and oriented -3. Complaining of mild dizziness and associated headache . - Labs CBC & Chem 7: 08/10/17 06:03 08/10/17 06:03 Labs: Abnormal Lab Results - Last 24 Hours (Table) 08/09/17 08/09/17 08/10/17 Range/Units 16:22 21:00 02:04 RBC (4.30-5.90) m/uL Hgb (13.0-17.5) gm/dL Hct (39.0-53.0) % Carbon Dioxide (22-30) mmol/L BUN (9-20) mg/dL Glucose (74-99) mg/dL POC Glucose (mg/dL) 211 H 252 H 240 H (75-99) mg/dL 08/10/17 08/10/17 08/10/17 Range/Units 06:03 06:03 06:06 RBC 2.77 L (4.30-5.90) m/uL Hgb 8.4 L (13.0-17.5) gm/dL Hct 25.7 L (39.0-53.0) % Carbon Dioxide 31 H (22-30) mmol/L BUN 29 H (9-20) mg/dL Glucose 220 H (74-99) mg/dL POC Glucose (mg/dL) 230 H (75-99) mg/dL 08/10/17 Range/Units 11:51 RBC (4.30-5.90) m/uL Hgb (13.0-17.5) gm/dL Hct (39.0-53.0) % Carbon Dioxide (22-30) mmol/L BUN (9-20) mg/dL Glucose (74-99) mg/dL POC Glucose (mg/dL) 143 H (75-99) mg/dL Assessment and Plan Plan: Assessment and plan #1 status post coronary artery bypass grafting surgery #2 known history of coronary artery disease with prior stent placement #3 diabetes #4 nicotine dependence #5 hypertension #6 hyperlipidemia #7 symptoms of dizziness and headache, CT of the brain ordered #8 daily alcohol intake, status post DTs Plan From cardiology's perspective, we will continue the patient on his current medications. Discharge to rehab or home when cleared by cardiothoracic surgery. DNP note has been reviewed, I agree with a documented findings and plan of care. Patient was seen and examined.
--- NOTE | 2017-08-10 15:25 | P.PN ---
Subjective Progress Note Date: 08/10/17 Principal diagnosis: Coronary artery diseaseAnel Gunn is a 47-year-old white male patient who follows with Dr. Araujo, presented to the emergency department on 07/28/2017 at 2215 with complaints of a burning sensation in the left arm, chest discomfort, not feeling well, nausea , and shortness of breath. Patient denied any fever or chills. Denied any cough or congestion. Past medical history includes coronary artery disease, diabetes mellitus, GERD/reflux, hyperlipidemia, hypertension, previous myocardial infarction, osteoarthritis, pneumonia, colitis, nephrolithiasis. Patient is a current smoker, has smoked for close to 35 years. He has a daily alcohol intake. EKG completed in the emergency room showed normal sinus rhythm with T-wave inversion in lead III and aVF. Chest x-ray was negative for any acute cardiopulmonary process. Blood work showed a EDC of 6.7, hemoglobin of 15.1, d-dimer was negative at 0.50, electrolytes were within normal limits, renal profile was normal. First and second Troponins were elevated at 0.044, 0.035. Patient was noted to have mild elevation of his AST, ALT, and alkaline phosphatase, at 67, 202, and 148 respectively. Lipase was 303, serum alcohol was less than 10. Patient underwent cardiac catheterization which revealed disease in the LAD at 60-70% involving the ostial portion, circumflex coronary artery that was previously stented was patent. There was a 95% stenosis in the right coronary artery proximally. There was a 60% stenosis before the bifurcation into PDA and PLV, with a PDA being diffusely diseased. Cardiothoracic surgery was consulted for evaluation for coronary artery bypass grafting. We are consulted for preop CABG pulmonary evaluation and postop CABG pulmonary management. On 08/03/2017, the patient is postop day #1 following coronary to bypass surgery. The patient underwent three-vessel bypass with OMALLEY to LAD, saphenous vein graft to diagonal, posterior lateral branch of RCA. The patient came into the intensive care unit intubated on a mechanical ventilator. Within 6 hours of arrival, the patient was weaned off the mechanical ventilator and the patient was extubated without any major difficulties. The patient is awake and alert this morning sitting up on a chair. The patient has a adequate hemodynamic with adequate cardiac output index. The [place]-Jt catheter will be removed. The chest x-ray shows small better pleural effusion and the chest tubes are all in good location. The patient was having some issues with hypertension. He was briefly placed on Cleviprex which was discontinued. Currently the patient is on nitroglycerin at 5 mcg/m. The patient is also on Lopressor this will be started this morning. He is afebrile. He is having adequate pain control. Sternum stable clean and intact. No change in mental status. He is following commands and answering questions appropriately. His underlying rhythm is sinus. His hemoglobin is at 11.4. The chest tube output from the left was 165 mL during this last shift and from the mediastinum is down 96 and mouth for the next shift. The patient's body weight is 121 kg. He will be encouraged to use the incentive spirometer. No other significant events overnight. On 08/04/2017 I'm seeing this patient for a follow-up. The patient is postop day #2. He is sitting up on a chair. He has still mediastinal chest tubes and a left pleural chest tube. This sometimes will be removed today 9 and output has been low. The patient remains hemodynamic is stable. The patient is off the nitroglycerin drip. The patient is maintaining his own blood pressure. Slightly tachycardic and we have made suggestions to increase the metoprolol to 50 mg by mouth twice a day. He is also on 5 mg of lisinopril for blood pressure control. He is on insulin drip which will be switched to Lantus insulin. He is taking 40 units of insulin drip on an hourly basis. He is tolerating his diet. No nausea or vomiting. Sternum stable clean and intact. Hemodynamically stable. He is in a sinus rhythm. He mentions that no cold is giving him side effects and the hives made recommendations to switch him to Tylenol 3 for pain control. He is doing well. No other significant events over the past 24 hours. Neurologically awake and alert. On 08/05/2017 I'm seeing this patient for a follow-up and is postop day #3. The mediastinal tubes have been removed. The patient has a left pleural chest tube and output of which is minimal and can be taken out. He is hemodynamically stable. His pain is under good control with Tylenol threes. His blood sugar needs to be further adjusted knowing that the patient is still having some limited blood sugar elevation and I will suggest increasing the Lantus dose at baseline. No altered mentation. No agitation. He is requesting a Xanax to help him with sleep at nighttime. Otherwise, he is hemodynamically stable and there has been no other significant events over the past 24 hours. On 08/06/2017 the patient is postop day #4. The patient is doing extremely well from the hemodynamic standpoint. Chest tubes have been removed. Pacemaker wires have been removed. The patient had a chest x-ray this morning that showed some cardiomegaly and limited left basilar atelectasis and small effusions. Otherwise the right lung is clear. The patient is on room air. He is having some issues with sleeping. Earlier this morning he was also found to have some early signs of delirium tremens and he was given a milligram of Ativan. He is not able to sleep well overnight. He feels a bit lethargic today and resolving some morning headaches. No change in mental status. No hallucinations. No delusions. No focal neurological deficits. Pupils are equal and reactive to light. No seizure activity. He is able to ambulate. His pulling approximately 1500 on his incentive spirometer. The patient has adequate pain control. He is on Tylenol 3. Sternum stable clean and intact. No other significant events overnight. The patient is seen again today 08/07/2017 in follow-up on the selective care unit. This is postoperative day #5. He is awake and alert in no acute distress. His pain is well managed. He's been up ambulating with assistance. He is currently maintaining good O2 saturations in the high 90s on room air. He continues to work well with his incentive spirometer. White count 6.7. Hemoglobin 10.0. Creatinine 1.00. On 08 08 2017 the patient is being seen for a follow-up. The patient is looking well. Patient is postop day #6 following three-vessel bypass surgery. The patient has adequate pain control. He has not taken his Tylenol 3. No respiratory difficulties. Neurology evaluated this patient and the patient has no deficits for now. CAT scan of the brain was also negative. He is on Antivert for now. No cough. No sputum production. No fever or chills. No other significant events overnight. Pulse oxing 95%. Chest tubes are out. The chest x-ray from today showed some small left-sided pleural effusion and there is also pulmonary vessel congestion. The patient is seen again today 08/09/2017 in follow-up on the selective care unit. He is awake and alert in no acute distress. He's been up ambulating in the hallway without significant distress. He denies any worsening shortness of breath, cough or congestion. Is working well of the incentive spirometer. Maintaining good O2 saturations in the upper 90s on room air. This x-ray is stable showing bilateral infiltrates and small effusions. No significant change. He is afebrile. White count 8.7. Hemoglobin 9.2. Creatinine 0.97. The patient is seen again today 08/10/2017 in follow-up on the selective care unit. He is currently resting quite comfortably in bed. He is awake and alert in no acute distress. He denies any worsening shortness of breath, cough or congestion. He is maintaining good O2 saturations in the upper 90s on room air. He has been afebrile. Hemodynamically stable. Chest x-ray reveals stable bilateral infiltrates and small effusions. White count 9.3. Hemoglobin 8.4. Creatinine 0.85. Objective - Vital Signs Vital signs: Vital Signs Temp 98.4 F 08/10/17 11:47 Pulse 90 08/10/17 11:47 Resp 18 08/10/17 11:47 BP 127/78 08/10/17 11:47 Pulse Ox 97 08/10/17 03:30 Intake & Output 08/09/17 08/10/17 08/10/17 18:59 06:59 18:59 Intake Total 960 600 237 Output Total 500 Balance 460 600 237 Weight 119.3 kg Intake: Oral 960 600 237 Output: Urine 500 Other: Voiding Method Toilet Urinal # Voids 2 2 ABP, PAP, CO, CI - Last Documented Arterial Blood Pressure 144/66 Pulmonary Artery Pressure 28/17 Cardiac Output 6.5 Cardiac Index 2.8 - Exam GENERAL EXAM: Alert, active, comfortable in no apparent distress. HEAD: Normocephalic. EYES: Normal reaction of pupils, equal size. NOSE: Clear with pink turbinates. THROAT: No erythema or exudates. NECK: No masses, no JVD. CHEST: Incision clean dry well approximated. Sternum stable. LUNGS: Equal air entry with crackles in the posterior bases.. CVS: S1 and S2 normal with no audible murmur, regular rhythm. ABDOMEN: No hepatosplenomegaly, normal bowel sounds, no guarding or rigidity. SPINE: No scoliosis or deformity SKIN: No rashes CENTRAL NERVOUS SYSTEM: No focal deficits, tone is normal in all 4 extremities. EXTREMITIES: There is no peripheral edema. No clubbing, no cyanosis. Peripheral pulses are intact. - Labs CBC & Chem 7: 08/10/17 06:03 08/10/17 06:03 Labs: Abnormal Lab Results - Last 24 Hours (Table) 08/09/17 08/09/17 08/10/17 Range/Units 16:22 21:00 02:04 RBC (4.30-5.90) m/uL Hgb (13.0-17.5) gm/dL Hct (39.0-53.0) % Carbon Dioxide (22-30) mmol/L BUN (9-20) mg/dL Glucose (74-99) mg/dL POC Glucose (mg/dL) 211 H 252 H 240 H (75-99) mg/dL 08/10/17 08/10/17 08/10/17 Range/Units 06:03 06:03 06:06 RBC 2.77 L (4.30-5.90) m/uL Hgb 8.4 L (13.0-17.5) gm/dL Hct 25.7 L (39.0-53.0) % Carbon Dioxide 31 H (22-30) mmol/L BUN 29 H (9-20) mg/dL Glucose 220 H (74-99) mg/dL POC Glucose (mg/dL) 230 H (75-99) mg/dL 08/10/17 Range/Units 11:51 RBC (4.30-5.90) m/uL Hgb (13.0-17.5) gm/dL Hct (39.0-53.0) % Carbon Dioxide (22-30) mmol/L BUN (9-20) mg/dL Glucose (74-99) mg/dL POC Glucose (mg/dL) 143 H (75-99) mg/dL Assessment and Plan Assessment: Assessment: #1. Symptomatic coronary artery disease, cardiac catheterization performed showed severe proximal stenosis of the RCA, progression of stenosis of the proximal LAD and patent circumflex stents. Status post coronary artery bypass grafting 3 with OMALLEY to LAD, saphenous vein grafts to the diagonal artery and posterior branch of the right coronary artery. #2. History of coronary artery disease, with prior stenting of the circumflex artery and prior history of myocardial infarction #3. Diabetes mellitus type 2 #4. Nicotine dependence, ongoing #5. Daily alcohol intake, patient drinks around a pint of Rum a day #6. Hyperlipidemia, hypertension #7. GERD/reflux #8. Chronic lumbar pain #9. Osteoarthritis #10. History of nephrolithiasis Plan: The patient was seen and evaluated by Dr. Askew. He is stable from the pulmonary standpoint. His chest x-ray reviewed. He continues to work well of the incentive spirometer. We'll increase his activity as tolerated. We'll continue to follow. Discharge planning is in place. I, the cosigning physician, performed a history & physical examination of the patient. Lungs sounds a crackles in the bilateral posterior bases. Maintaining good O2 saturations in the 90s on room air. I discussed the assessment and plan of care with my nurse practitioner, Amanda Durand. I attest to the above note as dictated by her.
[2017-08-10] MEDS: THIAMINE 100 MG TAB PO SCH ×2 (16:45→16:46)
[2017-08-10] MEDS: FOLIC ACID 1 MG TAB PO SCH (16:45)
[2017-08-10] MEDS: MULTIVITAMINS, THERA 1 EACH TAB PO SCH (16:45)
[2017-08-10 16:51] LABS: Glucose,Whole Blood 157 mg/dL (75-99)
--- NOTE | 2017-08-10 17:27 | P.PN ---
Subjective Progress Note Date: 08/10/17 Progress NOTE l being dictated for Dr. Soriano. Interval history: This a 47-year-old gentleman admitted with chest pain, possible acute non-STEMI with known history of CAD, AR, and multiple other medical issues. Evaluated by cardiology. Underwent cardiac catheterization this morning, reporting triple vessel disease: 60-70% stenosis of LAD involving ostial portion, 95% in the proximal RCA, 60% stenosis just prior to bifurcation into the PDA and PLV. Cardiothoracic surgery and pulmonary consulted. Carotid Doppler reporting thick neck with no significant velocity elevations. LFTs improving. Denies chest pain, palpitations or increased shortness of breath. 07/30/2017 developed hematoma at right groin site of cardiac cath., during the night. Ultrasound reporting pseudoaneurysm, status post injection with complete thrombosis as per IR. Denies abdominal pain. Evaluated by cardiothoracic surgery, scheduled for CABG on Wednesday. Denies chest pain, palpitations or increasing shortness of breath. Blood sugars remain elevated in the 200s. 07/31/2017 No overnight events 08/01/2017 No chest pain no significant overnight events 08/03/2079 Patient is status post ABG postoperative day one patient has a left right chest tubes along with mediastinal chest tube. Patient's [place]-Jt is out patient is comparing of pain in the chest beyond that no other issues patient is on IV insulin which we'll try to switch to Lantus and aspart regimen 08/04/2017 sitting up in chair, IS up to 1000, telemetry sinus rhythm. Ambulated in hallway with mild increased shortness of breath.chest x-ray reporting some improvement in aeration.elevated sugars,recently transitioned from insulin drip to long-acting insulin added to med regime. 08/05/2017 no overnight events. Blood sugars better controlled but elevated. Ambulating in hallway, tolerating increase in exertion well. Telemetry sinus rhythm.pain controlled.hemoglobin 8.7.renal function mildly worseningwith elevated potassium of 5.4. 08/06/2017. Patient is transferred out of ICU to telemetry unit.chest x-ray reporting minimal apical pneumothorax.incentive spirometer up to 1500. Passing flatus. Received Ativan earlier this morning for early DTs. No seizure activity reported.Complaining of dizziness and visual blurring in both eyes. Brain CT completed, reporting no acute intracranial process. Evaluated by neurology with recommendations. Review of systems: CONSTITUTIONAL: No fever, complains of feeling tired-did not sleep well last night. HEENT: Reports visual blurring upper thighs, no hearing problems. CARDIOVASCULAR: No chest pain, no palpitations, no syncope. PULMONARY: No shortness of breath, no cough, no hemoptysis. GASTROINTESTINAL: No diarrhea, no nausea, no vomiting, no abdominal pain. Normoactive bowel sounds. NEUROLOGICAL: Mild headache earlier-resolved after receiving Tylenol, no weakness, no numbness. Complains of dizziness. HEMATOLOGICAL: Denies any bleeding or petechiae. GENITOURINARY: Denies any burning micturition, frequency, or urgency. MUSCULOSKELETAL/RHEUMATOLOGICAL: Denies any joint pain, swelling, or any muscle pain. ENDOCRINE: Denies any polyuria or polydipsia. PSYCHIATRIC: No anxiety, no depression The rest of the 14 point review of systems is negative Active Medications Acetaminophen/Codeine Phosphate (Tylenol #3) 2 each PO Q4HR PRN PRN Reason: Pain Last Admin: 08/06/17 00:41 Dose: 2 each Albuterol/Ipratropium (Duoneb 0.5 Mg-3 Mg/3 Ml Soln) 3 ml INHALATION RT-Q2H PRN PRN Reason: Shortness Of Breath Or Wheezing Alprazolam (Xanax) 0.5 mg PO HS PRN PRN Reason: Anxiety Last Admin: 08/05/17 20:00 Dose: 0.5 mg Aspirin (Aspirin) 325 mg PO DAILY [facility] Last Admin: 08/06/17 08:00 Dose: 325 mg Atorvastatin Calcium (Lipitor) 40 mg PO DAILY [facility] Last Admin: 08/06/17 08:01 Dose: 40 mg Bisacodyl (Dulcolax) 10 mg RECTAL DAILY PRN PRN Reason: Constipation Clopidogrel Bisulfate (Plavix) 75 mg PO DAILY [facility] Last Admin: 08/06/17 08:01 Dose: 75 mg Folic Acid (Folic Acid) 1 mg PO DAILY@1200 [facility] Last Admin: 08/06/17 11:34 Dose: 1 mg Heparin Sodium (Porcine) (Heparin) 5,000 unit SQ Q8HR [facility] Last Admin: 08/06/17 17:29 Dose: 5,000 unit Insulin Aspart (Novolog) 0 unit SQ ACHS [facility] PRN Reason: Protocol Last Admin: 08/06/17 17:31 Dose: 5 unit Insulin Aspart (Novolog) 10 unit SQ AC-TID [facility] Last Admin: 08/06/17 17:30 Dose: 10 unit Insulin Detemir (Levemir) 25 unit SQ [facility] Last Admin: 08/05/17 21:06 Dose: 25 unit Ketorolac Tromethamine (Toradol) 15 mg IVP Q6HR [facility] Stop: 08/07/17 07:22 Last Admin: 08/06/17 17:27 Dose: 15 mg Lorazepam (Ativan) 1 mg IV Q1HR PRN PRN Reason: CIWA 10 to 15 Lorazepam (Ativan) 1 mg IV Q2HR PRN PRN Reason: CIWA 8 or 9 Last Admin: 08/06/17 08:00 Dose: 1 mg Magnesium Hydroxide (Milk Of Magnesia) 2,400 mg PO BID PRN PRN Reason: Constipation Meclizine HCl (Antivert) 12.5 mg PO BID [facility] Metoprolol Tartrate (Lopressor) 50 mg PO BID [facility] Last Admin: 08/06/17 08:00 Dose: 50 mg Miscellaneous Information (Magnesium Per Protocol) 1 each MISCELLANE DAILY PRN ; Protocol PRN Reason: Per Protocol Miscellaneous Information (Phosphorus Per Protocol) 1 each MISCELLANE DAILY PRN ; Protocol PRN Reason: Per Protocol Miscellaneous Information (Potassium Per Protocol) 1 each MISCELLANE DAILY PRN ; Protocol PRN Reason: Per Protocol Multivitamins (Theragran) 1 each PO DAILY@1200 [facility] Last Admin: 08/06/17 11:34 Dose: 1 each Ondansetron HCl (Zofran) 4 mg IVP Q6HR PRN PRN Reason: Nausea And Vomiting Pantoprazole Sodium (Protonix) 40 mg PO AC-BRKFST [facility] Last Admin: 08/06/17 08:01 Dose: 40 mg Senna/Docusate Sodium (Senokot-S) 2 each PO HS [facility] Last Admin: 08/05/17 20:00 Dose: 2 each Sodium Chloride (Saline Flush) 10 ml IV BID [facility] Last Admin: 08/06/17 08:01 Dose: 10 ml Thiamine HCl (Vitamin B-1) 100 mg PO BID@1200,1700 [facility] Last Admin: 08/06/17 17:27 Dose: 100 mg 4/3/18sitting up in chair, no acute distress. Afebrile. incentive spirometer up to 1300. Chest x-ray reporting stable bilateral infiltrates, small effusions. Complains of bilateral blurry vision,accompanied by inability to read,occasional dizziness.ophthalmology consult in place with recommendations pending.blood sugars elevated. Objective - Vital Signs Vital signs: Vital Signs Temp 98.3 F 08/10/17 15:40 Pulse 92 08/10/17 15:40 Resp 18 08/10/17 15:40 BP 132/69 08/10/17 15:40 Pulse Ox 97 08/10/17 03:30 Intake & Output 08/09/17 08/10/17 08/10/17 18:59 06:59 18:59 Intake Total 960 600 237 Output Total 500 Balance 460 600 237 Weight 119.3 kg Intake: Oral 960 600 237 Output: Urine 500 Other: Voiding Method Toilet Urinal # Voids 2 2 ABP, PAP, CO, CI - Last Documented Arterial Blood Pressure 144/66 Pulmonary Artery Pressure 28/17 Cardiac Output 6.5 Cardiac Index 2.8 - Exam PHYSICAL EXAM: VITAL SIGNS: As above GENERAL: Sitting up in chair, no acute distress HEENT: Conjunctivae normal. eyes normal. Oral mucosa moist NECK: No JVD. No thyroid enlargement. No LNs CARDIOVASCULAR: Regular S1, S2. No murmur RESPIRATION: Breath sounds diminished in the bases. no rhonchi, bibasilar crackles. No wheezing ABDOMEN: Soft, nontender . No guarding. no masses palpable. Bowel sounds heard. LEGS: No edema. no swelling PSYCHIATRY: Alert and oriented -3, mood and affect normal. NERVOUS SYSTEM: Cranial N 2-12 grossly normal. No nystagmus, Moves all 4 limbs. Strength and sensation grossly intact. - Labs CBC & Chem 7: 08/10/17 06:03 08/10/17 06:03 Labs: Abnormal Lab Results - Last 24 Hours (Table) 08/09/17 08/10/17 08/10/17 Range/Units 21:00 02:04 06:03 RBC 2.77 L (4.30-5.90) m/uL Hgb 8.4 L (13.0-17.5) gm/dL Hct 25.7 L (39.0-53.0) % Carbon Dioxide (22-30) mmol/L BUN (9-20) mg/dL Glucose (74-99) mg/dL POC Glucose (mg/dL) 252 H 240 H (75-99) mg/dL 08/10/17 08/10/17 08/10/17 Range/Units 06:03 06:06 11:51 RBC (4.30-5.90) m/uL Hgb (13.0-17.5) gm/dL Hct (39.0-53.0) % Carbon Dioxide 31 H (22-30) mmol/L BUN 29 H (9-20) mg/dL Glucose 220 H (74-99) mg/dL POC Glucose (mg/dL) 230 H 143 H (75-99) mg/dL 08/10/17 Range/Units 16:49 RBC (4.30-5.90) m/uL Hgb (13.0-17.5) gm/dL Hct (39.0-53.0) % Carbon Dioxide (22-30) mmol/L BUN (9-20) mg/dL Glucose (74-99) mg/dL POC Glucose (mg/dL) 157 H (75-99) mg/dL Assessment and Plan Assessment: 1. Chest pain, possible acute non-STEMI, status post cardiac catheterization with triple-vessel disease, status post CABG 2. Troponin 0.044 3. CAD with history of AR and stent 4. Diabetes mellitus type 2, hemoglobin A1c 9.6 5. Gastroesophageal reflux disease 6. Hyperlipidemia 7. Alcohol abuse, possible early DTs 8. Ongoing nicotine abuse 9. Pseudoaneurysm 10. mild acute renal failure with hyperkalemia 11. Postoperative anemia 12. Bilateral blurred vision with dizziness, possible vertigo,work-up in progress Plan: Continue on current medication regime ,monitoring and symptomatic treatment. continue on aspirin, statin. Ophthalmology consult in place with recommendations pending.Levemir insulin increase with close monitoring of Accu- Cheks. Parameters placed on premeal insulin to hold his Accu-Chek less than 120.PT/OT. Aggressive pulmonary toileting.discharge planning in progress as per cardiothoracic surgery. The impression and plan of care has been dictated as directed. : I performed a history and examination of this patient, discussed the same with the dictator. I agree with the dictator's note ,documented as a scribe. Any additional findings or plans will be noted.
--- NOTE | 2017-08-10 20:20 | P.PN ---
Subjective Progress Note Date: 08/10/17 This patient is a 47-year-old male who is postoperative day 5 following coronary artery bypass grafting. He was transferred out of the intensive care unit yesterday and complained of symptoms of visual blurring and dizziness. He underwent a urgent computed tomography scan of the brain which was negative for any acute abnormalities. MRI of the brain has been recommended. Patient continues to show slight improvement. His vision continues to show signs of blurriness. We have consulted ophthalmology for further assessment. The patient otherwise seems to be doing fairly well. As noted he is postoperative day #7. He does have history of underlying diabetes mellitus and his last hemoglobin A1c was elevated at 9.7. This may also be contributing to some of the visual changes possibly secondary to diabetic retinopathy. We will await further recommendations from ophthalmology. We have recommended patient to be evaluated by ophthalmology for possible diabetic retinopathy changes producing his visual changes. Patient has been up and ambulating in the hallway today and has shown some improvement overall. He denies any significant dizziness today on ambulation. He is awaiting transfer to inpatient rehab where he will undergo more extensive rehabilitation following his recent heart bypass surgery. He continues to do fairly well terms of his surgical recovery. Patient's dizziness has improved today. His vision still gives him difficulty and has noted we have recommended an ophthalmology consultation. Patient seems to be making good recovery from his recent heart surgery. As noted he is postoperative day #8 today. He has been up and ambulating in the hallway without any difficulty. Patient likely can have follow-up as outpatient with the public relations player regarding his visual changes. According to the patient he may be seen by ophthalmology later tonight. We will await their evaluation. Neurologically the patient remains very much intact. There is no focal deficits on examination today. He is waiting possible transfer to inpatient rehab once a bed is available. We will continue to follow his progress closely during this admission. Objective - Vital Signs Vital signs: Vital Signs Temp 98.3 F 08/10/17 15:40 Pulse 92 08/10/17 15:40 Resp 18 08/10/17 15:40 BP 132/69 08/10/17 15:40 Pulse Ox 97 08/10/17 03:30 Intake & Output 08/09/17 08/10/17 08/10/17 18:59 06:59 18:59 Intake Total 960 600 237 Output Total 500 Balance 460 600 237 Weight 119.3 kg Intake: Oral 960 600 237 Output: Urine 500 Other: Voiding Method Toilet Urinal # Voids 2 2 ABP, PAP, CO, CI - Last Documented Arterial Blood Pressure 144/66 Pulmonary Artery Pressure 28/17 Cardiac Output 6.5 Cardiac Index 2.8 - Exam Physical examination: PHYSICAL EXAMINATION: Patient is resting comfortably in bed. VITAL SIGNS: Blood pressure is [114/74]. Heart rate is [101]. Respiration is [18 ]. Temperature is [98.4]. HEENT: Head is atraumatic, neck is supple, there were no carotid bruits. CHEST: Lungs are clear to auscultation and percussion. CARDIAC: S1, S2 normal rate and rhythm. There is no murmur. ABDOMEN: Soft and nontender. Bowel sounds are present. EXTREMITIES: There is no pedal edema. Peripheral pulses are present. Neurological examination: Patient's neurological examination is unchanged from yesterday. Patient has less symptoms of dizziness today on examination. Still complains of some blurred vision. Patient has been ambulating in the hallway with no difficulties with his gait. He has no symptoms of dizziness. - Labs CBC & Chem 7: 08/10/17 06:03 08/10/17 06:03 Labs: Abnormal Lab Results - Last 24 Hours (Table) 08/09/17 08/10/17 08/10/17 Range/Units 21:00 02:04 06:03 RBC 2.77 L (4.30-5.90) m/uL Hgb 8.4 L (13.0-17.5) gm/dL Hct 25.7 L (39.0-53.0) % Carbon Dioxide (22-30) mmol/L BUN (9-20) mg/dL Glucose (74-99) mg/dL POC Glucose (mg/dL) 252 H 240 H (75-99) mg/dL 08/10/17 08/10/17 08/10/17 Range/Units 06:03 06:06 11:51 RBC (4.30-5.90) m/uL Hgb (13.0-17.5) gm/dL Hct (39.0-53.0) % Carbon Dioxide 31 H (22-30) mmol/L BUN 29 H (9-20) mg/dL Glucose 220 H (74-99) mg/dL POC Glucose (mg/dL) 230 H 143 H (75-99) mg/dL 08/10/17 Range/Units 16:49 RBC (4.30-5.90) m/uL Hgb (13.0-17.5) gm/dL Hct (39.0-53.0) % Carbon Dioxide (22-30) mmol/L BUN (9-20) mg/dL Glucose (74-99) mg/dL POC Glucose (mg/dL) 157 H (75-99) mg/dL Assessment and Plan (1) Status post coronary artery bypass grafting Current Visit: Yes Status: Acute Code(s): Z95.1 - PRESENCE OF AORTOCORONARY BYPASS GRAFT SNOMED Code(s): 675430515 (2) Blurred vision, bilateral Current Visit: Yes Status: Acute Code(s): H53.8 - OTHER VISUAL DISTURBANCES SNOMED Code(s): 236083437 (3) Dizziness Current Visit: Yes Status: Acute Code(s): R42 - DIZZINESS AND GIDDINESS SNOMED Code(s): 923367270 (4) Hypertension Current Visit: Yes Status: Chronic Code(s): I10 - ESSENTIAL (PRIMARY) HYPERTENSION SNOMED Code(s): 90942914 (5) Morbid obesity with BMI of 40.0-44.9, adult Current Visit: Yes Status: Chronic Code(s): E66.01 - MORBID (SEVERE) OBESITY DUE TO EXCESS CALORIES; Z68.41 - BODY MASS INDEX (BMI) 40.0-44.9, ADULT SNOMED Code(s): 814137341 (6) Diabetes Current Visit: No Status: Acute Code(s): E11.9 - TYPE 2 DIABETES MELLITUS WITHOUT COMPLICATIONS SNOMED Code(s): 43445220 Plan: This patient is a 47-year-old male who is postoperative day #8 today following coronary artery bypass grafting. He has been doing quite well neurologically with no recurrent symptoms of dizziness. He has been up and ambulating in the hallway with minimal difficulties. He is awaiting evaluation from ophthalmology regarding blurred vision. Neurologically his exam is nonfocal today. We will continue close neurological follow-up for the patient during this admission. He is awaiting possible inpatient rehab placement once a bed is available. We will continue to follow along with multiple specialists that are seeing this patient. His overall prognosis at this time remains guarded.
[2017-08-10] MEDS: SENNOSIDES-DOCUSATE SODIUM 1 EACH TAB PO SCH (20:35)
[2017-08-10 20:52] LABS: Glucose,Whole Blood 139 mg/dL (75-99)
[2017-08-10] MEDS ORDERED: INSULIN DETEMIR 100 UNIT/ML 10 ML VIAL SQ SCH ×2 (21:00)
[2017-08-10] MEDS: ALPRAZolam 0.5 MG TAB PO PRN (22:07)
--- NOTE | 2017-08-10 22:11 | CONS ---
CONSULTATION DATE OF SERVICE: 08/10/2017 CHIEF COMPLAINT: Blurred vision, both eyes. HISTORY OF PRESENT ILLNESS: Mr. Walters is a 47-year-old male with extensive medical history, including coronary artery disease, diabetes mellitus, type 2, hypertension, hyperlipidemia, myocardial infarction, coronary artery disease and recent CABG. The patient notes gradual onset of blurred vision over the last several months. The blurred vision is constant and worsening. The patient reports he has not seen an morgue keeper for many years. The patient denies any double vision or eye pain. There are no other visual symptoms. There are no sudden changes in his vision. REVIEW OF SYSTEMS: Occasional chest pain. Otherwise negative. PAST MEDICAL HISTORY: 1. Diabetes mellitus, type 2. 2. Gastroesophageal reflux disease. 3. Hypertension. 4. Hyperlipidemia. 5. History of myocardial infarction. 6. History of coronary artery disease with stent. HOME MEDICATIONS: 1. Glucophage. 2. Ranitidine. 3. Lopressor. 4. [place]. 5. Fish oil. 6. Plavix. 7. Lipitor. 8. Ecotrin. FAMILY HISTORY: Coronary artery disease, congestive heart failure. SOCIAL HISTORY: Occasional alcohol intake, remote history of smoking. ALLERGIES: NO KNOWN DRUG ALLERGIES. OPHTHALMIC EXAMINATION: Visual acuity is 2100 in the right eye and 2100 in the left eye at near. Intraocular pressure is soft to palpation. Pupils are equal, round and reactive to light. There is no APD. Extraocular movements are full. There is no strabismus. Lids are within normal limits. Anterior examination is within normal limits. There is nuclear sclerotic cataract formation in the lens. Posterior examination reveals microaneurysms and dot blot hemorrhages in the retina in both eyes. ASSESSMENT AND PLAN: 1. Diabetic retinopathy, non-proliferative, associated with type 2 diabetes. The patient does have diabetic changes in his retina. The inpatient setting is not ideal for detailed evaluation of his retinopathy and constructing a treatment plan. I recommend evaluation in the office for dilated examination and testing 1 to 2 weeks after discharge for creating a treatment plan for his diabetic retinopathy. I also recommend tight blood sugar control. 2. Cataract, both eyes. The patient appears to have mild cataracts in both eyes. This can be further evaluated as an outpatient. Thank you for allowing me to participate in this patient's care. MMODL / IJN: [id number] /
[2017-08-11] MEDS: HEPARIN SODIUM,PORCINE 5,000 UNIT/ML 1 ML VIAL SQ SCH ×4 (01:05→23:38)
[2017-08-11 02:09] LABS: Glucose,Whole Blood 174 mg/dL (75-99)
[2017-08-11 05:54] LABS: Glucose,Whole Blood 204 mg/dL (75-99)
[2017-08-11 06:32] LABS: HCT 26.3 % (39.0-53.0); HGB 8.6 gm/dL (13.0-17.5); Hypochromasia Slight; MCH 30.1 pg (25.0-35.0); MCHC 32.6 g/dL (31.0-37.0); MCV 92.4 fL (80.0-100.0); Mean Platelet Volume 7.7; Platelet Count 285 k/uL (150-450); Poikilocytosis Moderate; RBC 2.85 m/uL (4.30-5.90); RDW 14.1 % (11.5-15.5); WBC 8.2 k/uL (3.8-10.6)
[2017-08-11] MEDS: PANTOPRAZOLE 40 MG TABLET PO SCH (06:36)
[2017-08-11 06:37] LABS: Anion Gap 7 mmol/L; Blood Urea Nitrogen 22 mg/dL (9-20); Calcium 9.1 mg/dL (8.4-10.2); Carbon Dioxide 31 mmol/L (22-30); Chloride 101 mmol/L (98-107); Glucose 189 mg/dL (74-99); Potassium 4.5 mmol/L (3.5-5.1); Sodium 139 mmol/L (137-145)
[2017-08-11] MEDS: INSULIN ASPART 100 UNIT/ML 1 ML 10 ML VIAL SQ SCH ×7 (06:38→21:53)
[2017-08-11] MEDS: ASPIRIN 325 MG TAB PO SCH (07:30)
[2017-08-11] MEDS: METOPROLOL TARTRATE 50 MG TAB PO SCH ×2 (07:31→21:21)
[2017-08-11] MEDS: CLOPIDOGREL 75 MG TAB PO SCH (07:31)
[2017-08-11] MEDS: MECLIZINE 12.5 MG TAB PO SCH ×2 (07:31→21:21)
[2017-08-11] MEDS: ATORVASTATIN 40 MG TAB PO SCH (07:31)
[2017-08-11] MEDS: FOLIC ACID 1 MG TAB PO SCH (07:32)
[2017-08-11] MEDS: MULTIVITAMINS, THERA 1 EACH TAB PO SCH (07:32)
[2017-08-11] MEDS: THIAMINE 100 MG TAB PO SCH ×2 (07:32→17:24)
[2017-08-11] MEDS ORDERED: FUROSEMIDE 10 MG/ML 4 ML VIAL IV STA (08:48)
--- NOTE | 2017-08-11 09:29 | XR ---
EXAMINATION TYPE: XR chest 2V DATE OF EXAM: 08/11/2017 COMPARISON: 08/10/2017 TECHNIQUE: PA and lateral views submitted. HISTORY: Post cardiac surgery FINDINGS: The heart is enlarged and there is postoperative change. Bilateral infiltrate and small effusion note d. Findings greater on the right. Hypertrophic and degenerative change of the spine. Hyperinflation s uggests COPD. Arthropathy of the shoulders. IMPRESSION: 1. Bilateral infiltrate and small effusion stable. Mild central venous congestion suspected superimpo sed on a background of COPD.. 2. Cardiomegaly and postoperative changes.
--- NOTE | 2017-08-11 11:27 | P.PN ---
Subjective Progress Note Date: 08/11/17 This is a 47-year-old gentleman who is status post coronary artery bypass grafting surgery, patient underwent three-vessel bypass with a OMALLEY to the LAD, saphenous vein graft to the diagonal, posterior lateral branch of the RCA. He was seen and examined in the intensive care unit this morning. Denies any chest pain, breathing overall has been stable. He does complain of a headache which she states he's had for the past day and a half with associated dizziness. He also states that he has not been sleeping well. Patient was going through some DVTs and was given Ativan. Blood pressure 114/66 with a heart rate in the 90s. White blood cell count 7.1, hemoglobin 8.7, platelet count 152. Sodium 135, potassium 5.2 BUN 45, creatinine 1.2. 08/07/2017 Patient seen and examined this morning, still having headache with blurring of vision. CT negative. Hemodynamically stable. Potassium 5.3, BUN 41, creatinine 1.0. 08/09/2017 Patient seen and examined this morning, he's been up ambulating in the hallway without any difficulty. Denies any chest discomfort, breathing overall has been stable. Blood pressure 142/68 with a heart rate of 90. White blood cell count 8.7, hemoglobin 9.2, platelet count 271. Sodium 139, potassium 5.0, BUN 31, creatinine 0.9. 08/10/2017 Patient seen and examined this morning, ambulating in the hallway without any difficulty. Hemodynamically stable. 08/11/2017 Patient seen and examined this morning, up ambulating in the hallway without any difficulty. Hemodynamically stable. Arrangements are being made for the patient to be discharged home today. We will make him a follow-up appointment in the office post discharge. Objective - Vital Signs Vital signs: Vital Signs Temp 98.2 F 08/11/17 07:54 Pulse 74 08/11/17 08:00 Resp 18 08/11/17 08:00 BP 117/67 08/11/17 07:54 Pulse Ox 100 08/11/17 07:54 Intake & Output 08/10/17 08/11/17 08/11/17 18:59 06:59 18:59 Intake Total 474 Balance 474 Weight 118.2 kg Intake: Oral 474 Other: Voiding Method Toilet Urinal # Voids 2 1 ABP, PAP, CO, CI - Last Documented Arterial Blood Pressure 144/66 Pulmonary Artery Pressure 28/17 Cardiac Output 6.5 Cardiac Index 2.8 - Exam PHYSICAL EXAMINATION: HEENT: Head is atraumatic, normocephalic. Pupils equal, round. Neck is supple. There is no elevated jugular venous pressure. HEART EXAMINATION: Heart S1, S2 normal. No murmur or gallop heard. CHEST EXAMINATION: lungs clear to auscultation. ABDOMEN: Soft, nontender. Bowel sounds are heard. No organomegaly noted. EXTREMITIES: 2+ peripheral pulses with no evidence of peripheral edema and no calf tenderness noted. NEUROLOGIC patient is awake, alert and oriented -3. Complaining of mild dizziness and associated headache . - Labs CBC & Chem 7: 08/11/17 06:04 08/11/17 06:04 Labs: Abnormal Lab Results - Last 24 Hours (Table) 08/10/17 08/10/17 08/10/17 Range/Units 11:51 16:49 20:50 RBC (4.30-5.90) m/uL Hgb (13.0-17.5) gm/dL Hct (39.0-53.0) % Carbon Dioxide (22-30) mmol/L BUN (9-20) mg/dL Glucose (74-99) mg/dL POC Glucose (mg/dL) 143 H 157 H 139 H (75-99) mg/dL 08/11/17 08/11/17 08/11/17 Range/Units 02:07 05:52 06:04 RBC 2.85 L (4.30-5.90) m/uL Hgb 8.6 L (13.0-17.5) gm/dL Hct 26.3 L (39.0-53.0) % Carbon Dioxide (22-30) mmol/L BUN (9-20) mg/dL Glucose (74-99) mg/dL POC Glucose (mg/dL) 174 H 204 H (75-99) mg/dL 08/11/17 Range/Units 06:04 RBC (4.30-5.90) m/uL Hgb (13.0-17.5) gm/dL Hct (39.0-53.0) % Carbon Dioxide 31 H (22-30) mmol/L BUN 22 H (9-20) mg/dL Glucose 189 H (74-99) mg/dL POC Glucose (mg/dL) (75-99) mg/dL Assessment and Plan Plan: Assessment and plan #1 status post coronary artery bypass grafting surgery #2 known history of coronary artery disease with prior stent placement #3 diabetes #4 nicotine dependence #5 hypertension #6 hyperlipidemia #7 symptoms of dizziness and headache, CT of the brain ordered #8 daily alcohol intake, status post DTs Plan From cardiology's perspective, we will continue the patient on his current medications. Discharge to rehab or home when cleared by cardiothoracic surgery. DNP note has been reviewed, I agree with a documented findings and plan of care. Patient was seen and examined.
[2017-08-11 11:41] LABS: Glucose,Whole Blood 201 mg/dL (75-99)
[2017-08-11 11:46] VITALS: BMI 38.5
--- NOTE | 2017-08-11 12:03 | P.PN ---
Subjective Progress Note Date: 08/11/17 Principal diagnosis: Symptomatic multivessel coronary artery disease, non-STEMI, history of known coronary artery disease with prior stenting to his right coronary artery and circumflex coronary artery, morbid obesity, diabetes mellitus type II with preoperative hemoglobin A1c 9.7%, hypertension, hypertriglyceridemia with preoperative triglyceride level 478, osteoarthritis, remote history of pneumonia , current nicotine dependence with preoperative FEV1 65% of predicted, chronic lumbar back pain, and GERD. Family history of premature coronary artery disease with his father dying at 63 of CAD with myocardial infarction prior to 60 years of age. POD #9 urgent coronary artery bypass grafting 3 vessels with left internal mammary artery to the left anterior descending coronary artery, reverse greater saphenous vein graft to the diagonal coronary artery, reverse greater saphenous vein grafts to the posterior lateral branch of the right coronary artery. Endoscopic vein harvest of the left greater saphenous vein, intraoperative epi- aortic ultrasound and transesophageal echocardiogram. He is currently sitting up in the recliner in no acute distress. Does complain of blurred vision and dizziness since prior to surgery, states dizziness is less today but blurred vision still there. Patient seen by ophthalmology, feels blurred vision is due to diabetic retinopathy which will be managed on an outpatient basis. Patient has been up ambulating in the hallway. He is ready for discharge from a medical standpoint however no one is available at home from a safety standpoint and to get him to his doctor appointments, and he does not meet criteria for rehab placement. Objective - Vital Signs Vital signs: Vital Signs Temp 98.2 F 08/11/17 07:54 Pulse 74 08/11/17 08:00 Resp 18 08/11/17 08:00 BP 117/67 08/11/17 07:54 Pulse Ox 100 08/11/17 07:54 Intake & Output 08/10/17 08/11/17 08/11/17 18:59 06:59 18:59 Intake Total 474 Balance 474 Weight 118.2 kg Intake: Oral 474 Other: Voiding Method Toilet Urinal # Voids 2 1 ABP, PAP, CO, CI - Last Documented Arterial Blood Pressure 144/66 Pulmonary Artery Pressure 28/17 Cardiac Output 6.5 Cardiac Index 2.8 - Constitutional General appearance: Present: cooperative, no acute distress, obese - Respiratory Details: Lungs sounds diminished bilaterally. Respirations even, nonlabored. Currently on room air with oxygen saturation 100%. - Cardiovascular Details: S1, S2 present. Regular rate and rhythm, sinus rhythm on telemetry. Sternum stable. Palpable peripheral pulses bilaterally. Bilateral lower extubated edema still present. No calf pain or tenderness noted. Heart hugger in place with patient demonstrating appropriate use. Antiembolism stockings in place. - Gastrointestinal Gastrointestinal Comment(s): Abdomen soft, nontender, nondistended. Active bowel sounds 4 quadrants. Tolerating diet. - Genitourinary Genitourinary Comment(s): Continues to void. - Integumentary Integumentary Comment(s): Skin is warm and dry with evidence of good perfusion. Anterior chest incision well approximated and covered with dry intact dressing. Left lower extremity EVH site well approximated. - Neurologic Neurologic: Present: CNII-XII intact - Musculoskeletal Musculoskeletal: Present: gait normal, strength equal bilaterally - Psychiatric Psychiatric Comment(s): Flat affect. Psychiatric: Present: A&O x's 3, intact judgment & insight - Allied health notes Allied health notes reviewed: nursing - Labs CBC & Chem 7: 08/11/17 06:04 08/11/17 06:04 Labs: Abnormal Lab Results - Last 24 Hours (Table) 08/10/17 08/10/17 08/10/17 Range/Units 11:51 16:49 20:50 RBC (4.30-5.90) m/uL Hgb (13.0-17.5) gm/dL Hct (39.0-53.0) % Carbon Dioxide (22-30) mmol/L BUN (9-20) mg/dL Glucose (74-99) mg/dL POC Glucose (mg/dL) 143 H 157 H 139 H (75-99) mg/dL 08/11/17 08/11/17 08/11/17 Range/Units 02:07 05:52 06:04 RBC 2.85 L (4.30-5.90) m/uL Hgb 8.6 L (13.0-17.5) gm/dL Hct 26.3 L (39.0-53.0) % Carbon Dioxide (22-30) mmol/L BUN (9-20) mg/dL Glucose (74-99) mg/dL POC Glucose (mg/dL) 174 H 204 H (75-99) mg/dL 04/04/18 Range/Units 06:04 RBC (4.30-5.90) m/uL Hgb (13.0-17.5) gm/dL Hct (39.0-53.0) % Carbon Dioxide 31 H (22-30) mmol/L BUN 22 H (9-20) mg/dL Glucose 189 H (74-99) mg/dL POC Glucose (mg/dL) (75-99) mg/dL - Imaging and Cardiology Chest x-ray: report reviewed, image reviewed Assessment and Plan (1) H/O heart artery stent Current Visit: Yes Status: Chronic Code(s): Z95.5 - PRESENCE OF CORONARY ANGIOPLASTY IMPLANT AND GRAFT SNOMED Code(s): 283063321 (2) Morbid obesity with BMI of 40.0-44.9, adult Current Visit: Yes Status: Chronic Code(s): E66.01 - MORBID (SEVERE) OBESITY DUE TO EXCESS CALORIES; Z68.41 - BODY MASS INDEX (BMI) 40.0-44.9, ADULT SNOMED Code(s): 908854913 (3) Non-STEMI (non-ST elevated myocardial infarction) Current Visit: Yes Status: Acute Code(s): I21.4 - NON-ST ELEVATION (NSTEMI) MYOCARDIAL INFARCTION SNOMED Code(s): 834933658 (4) Hypertriglyceridemia Current Visit: Yes Status: Chronic Code(s): E78.1 - PURE HYPERGLYCERIDEMIA SNOMED Code(s): 078693937 (5) Coronary artery disease Current Visit: Yes Status: Chronic Code(s): I25.10 - ATHSCL HEART DISEASE OF [place] CORONARY ARTERY W/O ANG PCTRS SNOMED Code(s): 38108806 (6) Diabetes mellitus type 2 in obese Current Visit: Yes Status: Chronic Code(s): E11.69 - TYPE 2 DIABETES MELLITUS WITH OTHER SPECIFIED COMPLICATION; E66.9 - OBESITY, UNSPECIFIED SNOMED Code(s): 21782062 (7) GERD (gastroesophageal reflux disease) Current Visit: Yes Status: Chronic Code(s): K21.9 - GASTRO-ESOPHAGEAL REFLUX DISEASE WITHOUT ESOPHAGITIS SNOMED Code(s): 008733362 (8) History of pneumonia Current Visit: No Status: Resolved Code(s): Z87.01 - PERSONAL HISTORY OF PNEUMONIA (RECURRENT) SNOMED Code(s): 188302295 (9) Hypertension Current Visit: Yes Status: Chronic Code(s): I10 - ESSENTIAL (PRIMARY) HYPERTENSION SNOMED Code(s): 06116337 (10) Nicotine dependence Current Visit: Yes Status: Chronic Code(s): F17.200 - NICOTINE DEPENDENCE, UNSPECIFIED, UNCOMPLICATED SNOMED Code(s): 06843672 Plan: 1. Continue aspirin, statin, Plavix, subcu heparin, beta kayla. 2. Encourage incentive spirometry use 10 times every hour. 3. Encourage smoking cessation. 4. Increase activity, ambulate in hallway. PT/OT/cardiac rehab following. 5. GI/DVT prophylaxis. 6. Will give 40 mg IV Lasix today. 7. Diabetic management per Dr. Soriano's service. Blood sugars have remained elevated despite increase in Levemir. Needs better blood sugar control, insulin increased her primary care service. 8. Will monitor daily labs and chest x-rays. 9. Will need to follow with pillowcase turner outpatient for diabetic retinopathy. 10. Zoloft started. 11. Discharge planning in progress. Possibly will discharge to home later today with plans for [facility] to take patient to his physician appointments. Time with Patient: Greater than 30
[2017-08-11] MEDS: HYDROcodone/APAP 10-325MG 1 EACH TAB PO PRN ×3 (12:08→23:45)
[2017-08-11] MEDS: SERTRALINE 50 MG TAB PO SCH (12:13)
--- NOTE | 2017-08-11 15:32 | P.PN ---
Subjective Progress Note Date: 08/11/17 Principal diagnosis: Coronary artery diseaseAnel Gunn is a 47-year-old white male patient who follows with Dr. Araujo, presented to the emergency department on 07/28/2017 at 2215 with complaints of a burning sensation in the left arm, chest discomfort, not feeling well, nausea , and shortness of breath. Patient denied any fever or chills. Denied any cough or congestion. Past medical history includes coronary artery disease, diabetes mellitus, GERD/reflux, hyperlipidemia, hypertension, previous myocardial infarction, osteoarthritis, pneumonia, colitis, nephrolithiasis. Patient is a current smoker, has smoked for close to 35 years. He has a daily alcohol intake. EKG completed in the emergency room showed normal sinus rhythm with T-wave inversion in lead III and aVF. Chest x-ray was negative for any acute cardiopulmonary process. Blood work showed a EDC of 6.7, hemoglobin of 15.1, d-dimer was negative at 0.50, electrolytes were within normal limits, renal profile was normal. First and second Troponins were elevated at 0.044, 0.035. Patient was noted to have mild elevation of his AST, ALT, and alkaline phosphatase, at 67, 202, and 148 respectively. Lipase was 303, serum alcohol was less than 10. Patient underwent cardiac catheterization which revealed disease in the LAD at 60-70% involving the ostial portion, circumflex coronary artery that was previously stented was patent. There was a 95% stenosis in the right coronary artery proximally. There was a 60% stenosis before the bifurcation into PDA and PLV, with a PDA being diffusely diseased. Cardiothoracic surgery was consulted for evaluation for coronary artery bypass grafting. We are consulted for preop CABG pulmonary evaluation and postop CABG pulmonary management. On 08/03/2017, the patient is postop day #1 following coronary to bypass surgery. The patient underwent three-vessel bypass with OMALLEY to LAD, saphenous vein graft to diagonal, posterior lateral branch of RCA. The patient came into the intensive care unit intubated on a mechanical ventilator. Within 6 hours of arrival, the patient was weaned off the mechanical ventilator and the patient was extubated without any major difficulties. The patient is awake and alert this morning sitting up on a chair. The patient has a adequate hemodynamic with adequate cardiac output index. The [place]-Jt catheter will be removed. The chest x-ray shows small better pleural effusion and the chest tubes are all in good location. The patient was having some issues with hypertension. He was briefly placed on Cleviprex which was discontinued. Currently the patient is on nitroglycerin at 5 mcg/m. The patient is also on Lopressor this will be started this morning. He is afebrile. He is having adequate pain control. Sternum stable clean and intact. No change in mental status. He is following commands and answering questions appropriately. His underlying rhythm is sinus. His hemoglobin is at 11.4. The chest tube output from the left was 165 mL during this last shift and from the mediastinum is down 96 and mouth for the next shift. The patient's body weight is 121 kg. He will be encouraged to use the incentive spirometer. No other significant events overnight. On 08/04/2017 I'm seeing this patient for a follow-up. The patient is postop day #2. He is sitting up on a chair. He has still mediastinal chest tubes and a left pleural chest tube. This sometimes will be removed today 9 and output has been low. The patient remains hemodynamic is stable. The patient is off the nitroglycerin drip. The patient is maintaining his own blood pressure. Slightly tachycardic and we have made suggestions to increase the metoprolol to 50 mg by mouth twice a day. He is also on 5 mg of lisinopril for blood pressure control. He is on insulin drip which will be switched to Lantus insulin. He is taking 40 units of insulin drip on an hourly basis. He is tolerating his diet. No nausea or vomiting. Sternum stable clean and intact. Hemodynamically stable. He is in a sinus rhythm. He mentions that no cold is giving him side effects and the hives made recommendations to switch him to Tylenol 3 for pain control. He is doing well. No other significant events over the past 24 hours. Neurologically awake and alert. On 08/05/2017 I'm seeing this patient for a follow-up and is postop day #3. The mediastinal tubes have been removed. The patient has a left pleural chest tube and output of which is minimal and can be taken out. He is hemodynamically stable. His pain is under good control with Tylenol threes. His blood sugar needs to be further adjusted knowing that the patient is still having some limited blood sugar elevation and I will suggest increasing the Lantus dose at baseline. No altered mentation. No agitation. He is requesting a Xanax to help him with sleep at nighttime. Otherwise, he is hemodynamically stable and there has been no other significant events over the past 24 hours. On 08/06/2017 the patient is postop day #4. The patient is doing extremely well from the hemodynamic standpoint. Chest tubes have been removed. Pacemaker wires have been removed. The patient had a chest x-ray this morning that showed some cardiomegaly and limited left basilar atelectasis and small effusions. Otherwise the right lung is clear. The patient is on room air. He is having some issues with sleeping. Earlier this morning he was also found to have some early signs of delirium tremens and he was given a milligram of Ativan. He is not able to sleep well overnight. He feels a bit lethargic today and resolving some morning headaches. No change in mental status. No hallucinations. No delusions. No focal neurological deficits. Pupils are equal and reactive to light. No seizure activity. He is able to ambulate. His pulling approximately 1500 on his incentive spirometer. The patient has adequate pain control. He is on Tylenol 3. Sternum stable clean and intact. No other significant events overnight. The patient is seen again today 08/07/2017 in follow-up on the selective care unit. This is postoperative day #5. He is awake and alert in no acute distress. His pain is well managed. He's been up ambulating with assistance. He is currently maintaining good O2 saturations in the high 90s on room air. He continues to work well with his incentive spirometer. White count 6.7. Hemoglobin 10.0. Creatinine 1.00. On 08 08 2017 the patient is being seen for a follow-up. The patient is looking well. Patient is postop day #6 following three-vessel bypass surgery. The patient has adequate pain control. He has not taken his Tylenol 3. No respiratory difficulties. Neurology evaluated this patient and the patient has no deficits for now. CAT scan of the brain was also negative. He is on Antivert for now. No cough. No sputum production. No fever or chills. No other significant events overnight. Pulse oxing 95%. Chest tubes are out. The chest x-ray from today showed some small left-sided pleural effusion and there is also pulmonary vessel congestion. The patient is seen again today 08/09/2017 in follow-up on the selective care unit. He is awake and alert in no acute distress. He's been up ambulating in the hallway without significant distress. He denies any worsening shortness of breath, cough or congestion. Is working well of the incentive spirometer. Maintaining good O2 saturations in the upper 90s on room air. This x-ray is stable showing bilateral infiltrates and small effusions. No significant change. He is afebrile. White count 8.7. Hemoglobin 9.2. Creatinine 0.97. The patient is seen again today 08/10/2017 in follow-up on the selective care unit. He is currently resting quite comfortably in bed. He is awake and alert in no acute distress. He denies any worsening shortness of breath, cough or congestion. He is maintaining good O2 saturations in the upper 90s on room air. He has been afebrile. Hemodynamically stable. Chest x-ray reveals stable bilateral infiltrates and small effusions. White count 9.3. Hemoglobin 8.4. Creatinine 0.85. The patient is seen again today 08/11/2017 in follow-up on the selective care unit. He is currently sitting up in bed he is awake and alert in no acute distress. He denies any shortness of breath, cough or congestion. No significant pain or discomfort. He's been up ambulating in the hallway without acute distress. He is maintaining O2 saturations up to 100% on room air. His been afebrile. Hemodynamically stable. White count 8.2. Hemoglobin 8.6. Creatinine 0.90. Objective - Vital Signs Vital signs: Vital Signs Temp 98.2 F 08/11/17 12:00 Pulse 88 08/11/17 12:00 Resp 18 08/11/17 15:04 BP 159/92 08/11/17 12:00 Pulse Ox 100 08/11/17 12:00 Intake & Output 08/10/17 08/11/17 08/11/17 18:59 06:59 18:59 Intake Total 474 Balance 474 Weight 118.2 kg 118.2 kg Intake: Oral 474 Other: Voiding Method Toilet Urinal # Voids 2 1 ABP, PAP, CO, CI - Last Documented Arterial Blood Pressure 144/66 Pulmonary Artery Pressure 28/17 Cardiac Output 6.5 Cardiac Index 2.8 - Exam GENERAL EXAM: Alert, active, comfortable in no apparent distress. HEAD: Normocephalic. EYES: Normal reaction of pupils, equal size. NOSE: Clear with pink turbinates. THROAT: No erythema or exudates. NECK: No masses, no JVD. CHEST: Incision clean dry well approximated. Sternum stable. LUNGS: Equal air entry with crackles in the posterior bases.. CVS: S1 and S2 normal with no audible murmur, regular rhythm. ABDOMEN: No hepatosplenomegaly, normal bowel sounds, no guarding or rigidity. SPINE: No scoliosis or deformity SKIN: No rashes CENTRAL NERVOUS SYSTEM: No focal deficits, tone is normal in all 4 extremities. EXTREMITIES: There is no peripheral edema. No clubbing, no cyanosis. Peripheral pulses are intact. - Labs CBC & Chem 7: 08/11/17 06:04 08/11/17 06:04 Labs: Abnormal Lab Results - Last 24 Hours (Table) 08/10/17 08/10/17 08/11/17 Range/Units 16:49 20:50 02:07 RBC (4.30-5.90) m/uL Hgb (13.0-17.5) gm/dL Hct (39.0-53.0) % Carbon Dioxide (22-30) mmol/L BUN (9-20) mg/dL Glucose (74-99) mg/dL POC Glucose (mg/dL) 157 H 139 H 174 H (75-99) mg/dL 08/11/17 08/11/17 08/11/17 Range/Units 05:52 06:04 06:04 RBC 2.85 L (4.30-5.90) m/uL Hgb 8.6 L (13.0-17.5) gm/dL Hct 26.3 L (39.0-53.0) % Carbon Dioxide 31 H (22-30) mmol/L BUN 22 H (9-20) mg/dL Glucose 189 H (74-99) mg/dL POC Glucose (mg/dL) 204 H (75-99) mg/dL 08/11/17 Range/Units 11:39 RBC (4.30-5.90) m/uL Hgb (13.0-17.5) gm/dL Hct (39.0-53.0) % Carbon Dioxide (22-30) mmol/L BUN (9-20) mg/dL Glucose (74-99) mg/dL POC Glucose (mg/dL) 201 H (75-99) mg/dL Assessment and Plan Assessment: Assessment: #1. Symptomatic coronary artery disease, cardiac catheterization performed showed severe proximal stenosis of the RCA, progression of stenosis of the proximal LAD and patent circumflex stents. Status post coronary artery bypass grafting 3 with OMALLEY to LAD, saphenous vein grafts to the diagonal artery and posterior branch of the right coronary artery. #2. History of coronary artery disease, with prior stenting of the circumflex artery and prior history of myocardial infarction #3. Diabetes mellitus type 2 #4. Nicotine dependence, ongoing #5. Daily alcohol intake, patient drinks around a pint of Rum a day #6. Hyperlipidemia, hypertension #7. GERD/reflux #8. Chronic lumbar pain #9. Osteoarthritis #10. History of nephrolithiasis Plan: The patient was seen and evaluated by Dr. Askew. He is stable from the pulmonary standpoint. He could be discharged home once cleared by thoracic surgery. Follow-up in our office in 1 week's time. We'll repeat a chest x-ray then. He is however encouraged to call sooner with any pulmonary issues or other questions or concerns. I, the cosigning physician, performed a history & physical examination of the patient. Lungs sounds a crackles in the bilateral posterior bases. Maintaining good O2 saturations in the 90s on room air. I discussed the assessment and plan of care with my nurse practitioner, Amanda Durand. I attest to the above note as dictated by her.
[2017-08-11 16:39] LABS: Glucose,Whole Blood 189 mg/dL (75-99)
--- NOTE | 2017-08-11 18:04 | P.PN ---
Subjective Progress Note Date: 08/11/17 Progress NOTE l being dictated for Dr. Soriano. Interval history: This a 47-year-old gentleman admitted with chest pain, possible acute non-STEMI with known history of CAD, VA, and multiple other medical issues. Evaluated by cardiology. Underwent cardiac catheterization this morning, reporting triple vessel disease: 60-70% stenosis of LAD involving ostial portion, 95% in the proximal RCA, 60% stenosis just prior to bifurcation into the PDA and PLV. Cardiothoracic surgery and pulmonary consulted. Carotid Doppler reporting thick neck with no significant velocity elevations. LFTs improving. Denies chest pain, palpitations or increased shortness of breath. 07/30/2017 developed hematoma at right groin site of cardiac cath., during the night. Ultrasound reporting pseudoaneurysm, status post injection with complete thrombosis as per IR. Denies abdominal pain. Evaluated by cardiothoracic surgery, scheduled for CABG on Wednesday. Denies chest pain, palpitations or increasing shortness of breath. Blood sugars remain elevated in the 200s. 07/31/2017 No overnight events 08/01/2017 No chest pain no significant overnight events 08/03/2079 Patient is status post ABG postoperative day one patient has a left right chest tubes along with mediastinal chest tube. Patient's [place]-Jt is out patient is comparing of pain in the chest beyond that no other issues patient is on IV insulin which we'll try to switch to Lantus and aspart regimen 08/04/2017 sitting up in chair, IS up to 1000, telemetry sinus rhythm. Ambulated in hallway with mild increased shortness of breath.chest x-ray reporting some improvement in aeration.elevated sugars,recently transitioned from insulin drip to long-acting insulin added to med regime. 08/05/2017 no overnight events. Blood sugars better controlled but elevated. Ambulating in hallway, tolerating increase in exertion well. Telemetry sinus rhythm.pain controlled.hemoglobin 8.7.renal function mildly worseningwith elevated potassium of 5.4. 08/06/2017. Patient is transferred out of ICU to telemetry unit.chest x-ray reporting minimal apical pneumothorax.incentive spirometer up to 1500. Passing flatus. Received Ativan earlier this morning for early DTs. No seizure activity reported.Complaining of dizziness and visual blurring in both eyes. Brain CT completed, reporting no acute intracranial process. Evaluated by neurology with recommendations. Review of systems: CONSTITUTIONAL: No fever, complains of feeling tired-did not sleep well last night. HEENT: Reports visual blurring upper thighs, no hearing problems. CARDIOVASCULAR: No chest pain, no palpitations, no syncope. PULMONARY: No shortness of breath, no cough, no hemoptysis. GASTROINTESTINAL: No diarrhea, no nausea, no vomiting, no abdominal pain. Normoactive bowel sounds. NEUROLOGICAL: Mild headache earlier-resolved after receiving Tylenol, no weakness, no numbness. Complains of dizziness. HEMATOLOGICAL: Denies any bleeding or petechiae. GENITOURINARY: Denies any burning micturition, frequency, or urgency. MUSCULOSKELETAL/RHEUMATOLOGICAL: Denies any joint pain, swelling, or any muscle pain. ENDOCRINE: Denies any polyuria or polydipsia. PSYCHIATRIC: No anxiety, no depression The rest of the 14 point review of systems is negative Active Medications Acetaminophen/Codeine Phosphate (Tylenol #3) 2 each PO Q4HR PRN PRN Reason: Pain Last Admin: 08/06/17 00:41 Dose: 2 each Albuterol/Ipratropium (Duoneb 0.5 Mg-3 Mg/3 Ml Soln) 3 ml INHALATION RT-Q2H PRN PRN Reason: Shortness Of Breath Or Wheezing Alprazolam (Xanax) 0.5 mg PO HS PRN PRN Reason: Anxiety Last Admin: 08/05/17 20:00 Dose: 0.5 mg Aspirin (Aspirin) 325 mg PO DAILY [facility] Last Admin: 08/06/17 08:00 Dose: 325 mg Atorvastatin Calcium (Lipitor) 40 mg PO DAILY [facility] Last Admin: 08/06/17 08:01 Dose: 40 mg Bisacodyl (Dulcolax) 10 mg RECTAL DAILY PRN PRN Reason: Constipation Clopidogrel Bisulfate (Plavix) 75 mg PO DAILY [facility] Last Admin: 08/06/17 08:01 Dose: 75 mg Folic Acid (Folic Acid) 1 mg PO DAILY@1200 [facility] Last Admin: 08/06/17 11:34 Dose: 1 mg Heparin Sodium (Porcine) (Heparin) 5,000 unit SQ Q8HR [facility] Last Admin: 08/06/17 17:29 Dose: 5,000 unit Insulin Aspart (Novolog) 0 unit SQ ACHS [facility] PRN Reason: Protocol Last Admin: 08/06/17 17:31 Dose: 5 unit Insulin Aspart (Novolog) 10 unit SQ AC-TID [facility] Last Admin: 08/06/17 17:30 Dose: 10 unit Insulin Detemir (Levemir) 25 unit SQ [facility] Last Admin: 08/05/17 21:06 Dose: 25 unit Ketorolac Tromethamine (Toradol) 15 mg IVP Q6HR [facility] Stop: 08/07/17 07:22 Last Admin: 08/06/17 17:27 Dose: 15 mg Lorazepam (Ativan) 1 mg IV Q1HR PRN PRN Reason: CIWA 10 to 15 Lorazepam (Ativan) 1 mg IV Q2HR PRN PRN Reason: CIWA 8 or 9 Last Admin: 08/06/17 08:00 Dose: 1 mg Magnesium Hydroxide (Milk Of Magnesia) 2,400 mg PO BID PRN PRN Reason: Constipation Meclizine HCl (Antivert) 12.5 mg PO BID [facility] Metoprolol Tartrate (Lopressor) 50 mg PO BID [facility] Last Admin: 08/06/17 08:00 Dose: 50 mg Miscellaneous Information (Magnesium Per Protocol) 1 each MISCELLANE DAILY PRN ; Protocol PRN Reason: Per Protocol Miscellaneous Information (Phosphorus Per Protocol) 1 each MISCELLANE DAILY PRN ; Protocol PRN Reason: Per Protocol Miscellaneous Information (Potassium Per Protocol) 1 each MISCELLANE DAILY PRN ; Protocol PRN Reason: Per Protocol Multivitamins (Theragran) 1 each PO DAILY@1200 [facility] Last Admin: 08/06/17 11:34 Dose: 1 each Ondansetron HCl (Zofran) 4 mg IVP Q6HR PRN PRN Reason: Nausea And Vomiting Pantoprazole Sodium (Protonix) 40 mg PO AC-BRKFST [facility] Last Admin: 08/06/17 08:01 Dose: 40 mg Senna/Docusate Sodium (Senokot-S) 2 each PO HS [facility] Last Admin: 08/05/17 20:00 Dose: 2 each Sodium Chloride (Saline Flush) 10 ml IV BID [facility] Last Admin: 08/06/17 08:01 Dose: 10 ml Thiamine HCl (Vitamin B-1) 100 mg PO BID@1200,1700 [facility] Last Admin: 08/06/17 17:27 Dose: 100 mg 4/3/18sitting up in chair, no acute distress. Afebrile. incentive spirometer up to 1300. Chest x-ray reporting stable bilateral infiltrates, small effusions. Complains of bilateral blurry vision,accompanied by inability to read,occasional dizziness.ophthalmology consult in place with recommendations pending.blood sugars elevated. 08/11/17 ambulating in hallway, tolerated exertion well. Afebrile. Maintaining O2 sats of 100% on room air. Blood sugars better controlled. Evaluated by barrel roller operator yesterday with recommendations noted. Objective - Vital Signs Vital signs: Vital Signs Temp 98 F 08/11/17 16:00 Pulse 101 H 08/11/17 16:00 Resp 18 08/11/17 16:00 BP 158/97 08/11/17 16:00 Pulse Ox 97 08/11/17 16:00 Intake & Output 08/10/17 08/11/17 08/11/17 18:59 06:59 18:59 Intake Total 474 Balance 474 Weight 118.2 kg 118.2 kg Intake: Oral 474 Other: Voiding Method Toilet Urinal # Voids 2 1 ABP, PAP, CO, CI - Last Documented Arterial Blood Pressure 144/66 Pulmonary Artery Pressure 28/17 Cardiac Output 6.5 Cardiac Index 2.8 - Exam PHYSICAL EXAM: VITAL SIGNS: As above GENERAL: Sitting up in chair, no acute distress HEENT: Conjunctivae normal. eyes normal. Oral mucosa moist NECK: No JVD. No thyroid enlargement. No LNs CARDIOVASCULAR: Regular S1, S2. No murmur RESPIRATION: Breath sounds diminished in the bases. no rhonchi, bibasilar, fine posterior bibasilar crackles. No wheezing ABDOMEN: Soft, nontender . No guarding. no masses palpable. Bowel sounds heard. LEGS: No edema. no swelling PSYCHIATRY: Alert and oriented -3, mood and affect normal. NERVOUS SYSTEM: Cranial N 2-12 grossly normal. No nystagmus, Moves all 4 limbs. Strength and sensation grossly intact. - Labs CBC & Chem 7: 08/11/17 06:04 08/11/17 06:04 Labs: Abnormal Lab Results - Last 24 Hours (Table) 08/10/17 08/11/17 08/11/17 Range/Units 20:50 02:07 05:52 RBC (4.30-5.90) m/uL Hgb (13.0-17.5) gm/dL Hct (39.0-53.0) % Carbon Dioxide (22-30) mmol/L BUN (9-20) mg/dL Glucose (74-99) mg/dL POC Glucose (mg/dL) 139 H 174 H 204 H (75-99) mg/dL 08/11/17 08/11/17 08/11/17 Range/Units 06:04 06:04 11:39 RBC 2.85 L (4.30-5.90) m/uL Hgb 8.6 L (13.0-17.5) gm/dL Hct 26.3 L (39.0-53.0) % Carbon Dioxide 31 H (22-30) mmol/L BUN 22 H (9-20) mg/dL Glucose 189 H (74-99) mg/dL POC Glucose (mg/dL) 201 H (75-99) mg/dL 08/11/17 Range/Units 16:38 RBC (4.30-5.90) m/uL Hgb (13.0-17.5) gm/dL Hct (39.0-53.0) % Carbon Dioxide (22-30) mmol/L BUN (9-20) mg/dL Glucose (74-99) mg/dL POC Glucose (mg/dL) 189 H (75-99) mg/dL Assessment and Plan Assessment: 1. Chest pain, possible acute non-STEMI, status post cardiac catheterization with triple-vessel disease, status post CABG 2. Troponin 0.044 3. CAD with history of VA and stent 4. Diabetes mellitus type 2, hemoglobin A1c 9.6 5. Gastroesophageal reflux disease 6. Hyperlipidemia 7. Alcohol abuse, possible early DTs 8. Ongoing nicotine abuse 9. Pseudoaneurysm 10. mild acute renal failure with hyperkalemia 11. Postoperative anemia 12. Bilateral blurred vision with dizziness, possible vertigo; diabetic retinopathy associated with diabetes mellitus type 2-further evaluation/workup outpatient with ophthalmology, . Plan: Continue on current medication regime ,monitoring and symptomatic treatment. continue on aspirin, statin. Ophthalmology recommendations noted. Diabetic teaching as patient will be discharged on insulin. close monitoring of Accu-Cheks. PT/OT. Aggressive pulmonary toileting.discharge planning in progress as per cardiothoracic surgery. The impression and plan of care has been dictated as directed. : I performed a history and examination of this patient, discussed the same with the dictator. I agree with the dictator's note ,documented as a scribe. Any additional findings or plans will be noted.
[2017-08-11] MEDS ORDERED: INSULIN DETEMIR 100 UNIT/ML 10 ML VIAL SQ SCH ×2 (21:00)
[2017-08-11] MEDS: SENNOSIDES-DOCUSATE SODIUM 1 EACH TAB PO SCH (21:21)
[2017-08-11 21:32] LABS: Glucose,Whole Blood 234 mg/dL (75-99)
[2017-08-11] MEDS: ALPRAZolam 0.5 MG TAB PO PRN (23:45)
[2017-08-12 03:37] LABS: Glucose,Whole Blood 185 mg/dL (75-99)
[2017-08-12 06:09] LABS: Glucose,Whole Blood 143 mg/dL (75-99)
[2017-08-12 06:15] LABS: HCT 27.5 % (39.0-53.0); HGB 9.2 gm/dL (13.0-17.5); Hypochromasia Slight; MCHC 33.6 g/dL (31.0-37.0); MCV 92.2 fL (80.0-100.0); Mean Platelet Volume 7.3; Platelet Count 311 k/uL (150-450); Poikilocytosis Marked; RBC 2.98 m/uL (4.30-5.90); RDW 14.1 % (11.5-15.5); WBC 8.8 k/uL (3.8-10.6)
[2017-08-12 06:28] LABS: Anion Gap 10 mmol/L; Blood Urea Nitrogen 21 mg/dL (9-20); Calcium 9.1 mg/dL (8.4-10.2); Carbon Dioxide 28 mmol/L (22-30); Chloride 101 mmol/L (98-107); Glucose 147 mg/dL (74-99); Potassium 4.4 mmol/L (3.5-5.1); Sodium 139 mmol/L (137-145)
[2017-08-12] MEDS: PANTOPRAZOLE 40 MG TABLET PO SCH (06:52)
[2017-08-12] MEDS: INSULIN ASPART 100 UNIT/ML 1 ML 10 ML VIAL SQ SCH ×6 (06:52→17:49)
--- NOTE | 2017-08-12 07:38 | P.PN ---
Subjective Progress Note Date: 08/11/17 This patient is a 47-year-old male who is postoperative day 5 following coronary artery bypass grafting. He was transferred out of the intensive care unit yesterday and complained of symptoms of visual blurring and dizziness. He underwent a urgent computed tomography scan of the brain which was negative for any acute abnormalities. MRI of the brain has been recommended. Patient continues to show slight improvement. His vision continues to show signs of blurriness. We have consulted ophthalmology for further assessment. The patient otherwise seems to be doing fairly well. As noted he is postoperative day #7. He does have history of underlying diabetes mellitus and his last hemoglobin A1c was elevated at 9.7. This may also be contributing to some of the visual changes possibly secondary to diabetic retinopathy. We will await further recommendations from ophthalmology. We have recommended patient to be evaluated by ophthalmology for possible diabetic retinopathy changes producing his visual changes. Patient has been up and ambulating in the hallway today and has shown some improvement overall. He denies any significant dizziness today on ambulation. He is awaiting transfer to inpatient rehab where he will undergo more extensive rehabilitation following his recent heart bypass surgery. He continues to do fairly well terms of his surgical recovery. Patient's dizziness has improved today. His vision still gives him difficulty and has noted we have recommended an ophthalmology consultation. Patient seems to be making good recovery from his recent heart surgery. As noted he is postoperative day #8 today. He has been up and ambulating in the hallway without any difficulty. Patient likely can have follow-up as outpatient with the broadcast designer regarding his visual changes. According to the patient he may be seen by ophthalmology later tonight. We will await their evaluation. Neurologically the patient remains very much intact. There is no focal deficits on examination today. He is waiting possible transfer to inpatient rehab once a bed is available. We will continue to follow his progress closely during this admission. Objective - Vital Signs Vital signs: Vital Signs Temp 98 F 08/11/17 16:00 Pulse 101 H 08/11/17 16:00 Resp 18 08/11/17 16:00 BP 158/97 08/11/17 16:00 Pulse Ox 97 08/11/17 16:00 Intake & Output 08/11/17 08/11/17 08/12/17 06:59 18:59 06:59 Intake Total 180 Balance 180 Weight 118.2 kg 118.2 kg Intake: Oral 180 Other: Voiding Method Toilet Urinal # Voids 1 ABP, PAP, CO, CI - Last Documented Arterial Blood Pressure 144/66 Pulmonary Artery Pressure 28/17 Cardiac Output 6.5 Cardiac Index 2.8 - Exam Physical examination: PHYSICAL EXAMINATION: Patient is resting comfortably in bed. VITAL SIGNS: Blood pressure is [158/90]. Heart rate is [101]. Respiration is [18 ]. Temperature is [98.0]. HEENT: Head is atraumatic, neck is supple, there were no carotid bruits. CHEST: Lungs are clear to auscultation and percussion. CARDIAC: S1, S2 normal rate and rhythm. There is no murmur. ABDOMEN: Soft and nontender. Bowel sounds are present. EXTREMITIES: There is no pedal edema. Peripheral pulses are present. Neurological examination: Patient's neurological examination is unchanged from yesterday. Patient has less symptoms of dizziness today on examination. Still complains of some blurred vision. Patient has been ambulating in the hallway with no difficulties with his gait. He has no symptoms of dizziness. - Labs CBC & Chem 7: 08/12/17 05:31 08/12/17 05:31 Labs: Abnormal Lab Results - Last 24 Hours (Table) 08/10/17 08/11/17 08/11/17 Range/Units 20:50 02:07 05:52 RBC (4.30-5.90) m/uL Hgb (13.0-17.5) gm/dL Hct (39.0-53.0) % Carbon Dioxide (22-30) mmol/L BUN (9-20) mg/dL Glucose (74-99) mg/dL POC Glucose (mg/dL) 139 H 174 H 204 H (75-99) mg/dL 08/11/17 08/11/17 08/11/17 Range/Units 06:04 06:04 11:39 RBC 2.85 L (4.30-5.90) m/uL Hgb 8.6 L (13.0-17.5) gm/dL Hct 26.3 L (39.0-53.0) % Carbon Dioxide 31 H (22-30) mmol/L BUN 22 H (9-20) mg/dL Glucose 189 H (74-99) mg/dL POC Glucose (mg/dL) 201 H (75-99) mg/dL 08/11/17 Range/Units 16:38 RBC (4.30-5.90) m/uL Hgb (13.0-17.5) gm/dL Hct (39.0-53.0) % Carbon Dioxide (22-30) mmol/L BUN (9-20) mg/dL Glucose (74-99) mg/dL POC Glucose (mg/dL) 189 H (75-99) mg/dL Assessment and Plan (1) Status post coronary artery bypass grafting Current Visit: Yes Status: Acute Code(s): Z95.1 - PRESENCE OF AORTOCORONARY BYPASS GRAFT SNOMED Code(s): 783626211 (2) Blurred vision, bilateral Current Visit: Yes Status: Acute Code(s): H53.8 - OTHER VISUAL DISTURBANCES SNOMED Code(s): 596850489 (3) Dizziness Current Visit: Yes Status: Acute Code(s): R42 - DIZZINESS AND GIDDINESS SNOMED Code(s): 788339975 (4) Hypertension Current Visit: Yes Status: Chronic Code(s): I10 - ESSENTIAL (PRIMARY) HYPERTENSION SNOMED Code(s): 85663433 (5) Morbid obesity with BMI of 40.0-44.9, adult Current Visit: Yes Status: Chronic Code(s): E66.01 - MORBID (SEVERE) OBESITY DUE TO EXCESS CALORIES; Z68.41 - BODY MASS INDEX (BMI) 40.0-44.9, ADULT SNOMED Code(s): 321234078 (6) Diabetes Current Visit: No Status: Acute Code(s): E11.9 - TYPE 2 DIABETES MELLITUS WITHOUT COMPLICATIONS SNOMED Code(s): 90893469 Plan: This patient is a 47-year-old male who is postoperative day #8 today following coronary artery bypass grafting. He has been doing quite well neurologically with no recurrent symptoms of dizziness. He has been up and ambulating in the hallway with minimal difficulties. He is awaiting evaluation from ophthalmology regarding blurred vision. Neurologically his exam is nonfocal today. We will continue close neurological follow-up for the patient during this admission. He is awaiting possible inpatient rehab placement once a bed is available. Patient states that he may be discharged to home rather than to inpatient rehab due to insurance reasons. He continues to make slow progress and has been up and ambulating in the hallway. He does notice slight fatigue symptoms today. We are waiting for the recommendations from vascular surgery in regards to his discharge planning. We will continue to follow along with multiple specialists that are seeing this patient. His overall prognosis at this time remains guarded.
--- NOTE | 2017-08-12 08:32 | P.PN ---
Subjective Progress Note Date: 08/12/17 Principal diagnosis: Symptomatic multivessel coronary artery disease, history of known coronary artery disease with post prior stenting to his right coronary artery and circumflex coronary artery, obesity, diabetes mellitus type 2 with preoperative hemoglobin A1c of 9.7%, hypertension, hyperlipidemia, non-ST elevated myocardial infarction this admission troponins as high as 0.044, history of nephrolithiasis, osteoarthritis, history of pneumonia, current nicotine dependence with preoperative FEV1 65% predicted, chronic lumbar back pain and GERD. POD #10 urgent coronary artery bypass grafting 3 vessels with placement of his left internal mammary artery to his left anterior ascending coronary artery, a reverse greater saphenous vein graft to his diagonal coronary artery, reverse greater saphenous vein graft to his posterior lateral branch of his right coronary artery. Endoscopic vein harvest of his left greater saphenous vein, intraoperative epi-aortic ultrasound and transesophageal echocardiogram. Patient is sitting up to the bedside chair. He is in no acute distress. He currently denies any complaints of pain or shortness of breath. He remains complaining of blurred vision, denies any further complaints of dizziness at this time. He is achieving 1500 mL on his incentive spirometry. Objective - Vital Signs Vital signs: Vital Signs Temp 98.7 F 08/12/17 04:00 Pulse 90 08/12/17 04:00 Resp 16 08/12/17 04:00 BP 133/66 08/12/17 04:00 Pulse Ox 97 08/12/17 07:53 Intake & Output 08/11/17 08/12/17 08/12/17 18:59 06:59 18:59 Intake Total 180 Balance 180 Weight 118.2 kg 118 kg Intake: Oral 180 Other: Voiding Method Toilet Urinal # Voids 2 ABP, PAP, CO, CI - Last Documented Arterial Blood Pressure 144/66 Pulmonary Artery Pressure 28/17 Cardiac Output 6.5 Cardiac Index 2.8 - Constitutional General appearance: Present: cooperative, no acute distress, obese - EENT ENT: Present: hearing grossly normal - Neck Details: No JVD, neck is supple, no lymphadenopathy. - Respiratory Details: Lung sounds are essentially clear throughout, diminished at bilateral bases. Respirations are symmetrical and unlabored. Oxygen saturations are 97% on room air. He is achieving 1500 mL on his incentive spirometry. - Cardiovascular Details: Regular rhythm and rate. S1 and S2 present, negative for S3, gallop or murmur. Sternum is stable. Remote telemetry showing normal sinus rhythm heart rate 96. Heart hugger is in place and he is demonstrating appropriate use. No edema present. Knee-high KATHERINE hose and sequential compression devices in place. Bilateral lower 70s. - Gastrointestinal Gastrointestinal Comment(s): Abdomen is soft, nontender nondistended. Active bowel sounds all 4 abdominal quadrants. Tolerating oral intake. - Genitourinary Genitourinary Comment(s): Adequate urine output. Voiding clear yellow urine. - Integumentary Integumentary Comment(s): Skin is warm and dry. No clubbing or cyanosis present. Midline sternal incision clean dry and well approximated. No drainage or redness present. Left lower extremity EVH site and dry and approximated. No drainage or redness present. - Neurologic Neurologic: Present: CNII-XII intact - Musculoskeletal Musculoskeletal: Present: gait normal, strength equal bilaterally - Psychiatric Psychiatric Comment(s): Flat affect Psychiatric: Present: A&O x's 3, intact judgment & insight - Allied health notes Allied health notes reviewed: nursing - Labs CBC & Chem 7: 08/12/17 05:31 08/12/17 05:31 Labs: Abnormal Lab Results - Last 24 Hours (Table) 08/11/17 08/11/17 08/11/17 Range/Units 11:39 16:38 21:31 RBC (4.30-5.90) m/uL Hgb (13.0-17.5) gm/dL Hct (39.0-53.0) % BUN (9-20) mg/dL Glucose (74-99) mg/dL POC Glucose (mg/dL) 201 H 189 H 234 H (75-99) mg/dL 08/12/17 08/12/17 08/12/17 Range/Units 03:35 05:31 05:31 RBC 2.98 L (4.30-5.90) m/uL Hgb 9.2 L (13.0-17.5) gm/dL Hct 27.5 L (39.0-53.0) % BUN 21 H (9-20) mg/dL Glucose 147 H (74-99) mg/dL POC Glucose (mg/dL) 185 H (75-99) mg/dL 08/12/17 Range/Units 06:05 RBC (4.30-5.90) m/uL Hgb (13.0-17.5) gm/dL Hct (39.0-53.0) % BUN (9-20) mg/dL Glucose (74-99) mg/dL POC Glucose (mg/dL) 143 H (75-99) mg/dL - Imaging and Cardiology Chest x-ray: report reviewed, image reviewed Assessment and Plan (1) History of myocardial infarction Current Visit: Yes Status: Acute Code(s): I25.2 - OLD MYOCARDIAL INFARCTION SNOMED Code(s): 657194191 (2) Coronary artery disease Current Visit: Yes Status: Chronic Code(s): I25.10 - ATHSCL HEART DISEASE OF [place] CORONARY ARTERY W/O ANG PCTRS SNOMED Code(s): 03439524 (3) Hypertension Current Visit: Yes Status: Chronic Code(s): I10 - ESSENTIAL (PRIMARY) HYPERTENSION SNOMED Code(s): 55760734 (4) Diabetes mellitus type 2 in obese Current Visit: Yes Status: Chronic Code(s): E11.69 - TYPE 2 DIABETES MELLITUS WITH OTHER SPECIFIED COMPLICATION; E66.9 - OBESITY, UNSPECIFIED SNOMED Code(s): 67975991 (5) Obesity (BMI 30-39.9) Current Visit: Yes Status: Acute Code(s): E66.9 - OBESITY, UNSPECIFIED SNOMED Code(s): 121553109 (6) History of pneumonia Current Visit: No Status: Resolved Code(s): Z87.01 - PERSONAL HISTORY OF PNEUMONIA (RECURRENT) SNOMED Code(s): 378866796 (7) GERD (gastroesophageal reflux disease) Current Visit: Yes Status: Chronic Code(s): K21.9 - GASTRO-ESOPHAGEAL REFLUX DISEASE WITHOUT ESOPHAGITIS SNOMED Code(s): 095575175 (8) Hyperlipemia Current Visit: No Status: Acute Code(s): E78.5 - HYPERLIPIDEMIA, UNSPECIFIED SNOMED Code(s): 66900831 (9) Nicotine dependence Current Visit: Yes Status: Chronic Code(s): F17.200 - NICOTINE DEPENDENCE, UNSPECIFIED, UNCOMPLICATED SNOMED Code(s): 37809108 Plan: 1. Continue aspirin, statin, subcu heparin, Plavix and beta kayla. We increase metoprolol tartrate to 100 mg by mouth twice a day. 2. Ophthalmology consult appreciated, the patient will need outpatient follow- up for diabetic retinopathy and cataracts to both of his eyes. 3. Pulmonary management recommendations per Dr. Askew. 4. Encourage use of his incentive spirometry every hour while awake. 5. GI and DVT prophylaxis in place. 6. Increase activity as tolerated. Physical therapy, occupational therapy and cardiac rehab following. 7. Continue to reinforce importance of smoking cessation. 8. Diabetic and medical management per primary care service recommendations. 9. Diabetic education ongoing with patient. family living educator following patient. 10. We will monitor his daily labs and chest x-rays. 11. Continue Zoloft. 12. Further recommendations to follow as patient progresses in his care. Anticipate discharge home within the next 24 hours. Time with Patient: Greater than 30
[2017-08-12] MEDS: ATORVASTATIN 40 MG TAB PO SCH (08:59)
[2017-08-12] MEDS: ASPIRIN 325 MG TAB PO SCH (08:59)
[2017-08-12] MEDS: HEPARIN SODIUM,PORCINE 5,000 UNIT/ML 1 ML VIAL SQ SCH ×2 (08:59→16:31)
[2017-08-12] MEDS: MECLIZINE 12.5 MG TAB PO SCH (09:00)
[2017-08-12] MEDS: CLOPIDOGREL 75 MG TAB PO SCH (09:00)
[2017-08-12] MEDS ORDERED: METOPROLOL TARTRATE 50 MG TAB PO SCH (09:00)
[2017-08-12] MEDS: THIAMINE 100 MG TAB PO SCH ×2 (09:01→16:31)
[2017-08-12] MEDS: MULTIVITAMINS, THERA 1 EACH TAB PO SCH (09:01)
--- NOTE | 2017-08-12 09:01 | XR ---
EXAMINATION TYPE: XR chest 2V DATE OF EXAM: 08/12/2017 COMPARISON: 08/11/2017 TECHNIQUE: PA and lateral views submitted. HISTORY: Post cardiac FINDINGS: The heart is enlarged and there is postoperative change. Bilateral infiltrate and small effusion note d. Findings greater on the right. Hypertrophic and degenerative change of the spine. Hyperinflation s uggests COPD. Arthropathy of the shoulders. IMPRESSION: 1. Bilateral infiltrate and small effusion stable. Mild central venous congestion suspected superimpo sed on a background of COPD. 2. Cardiomegaly and postoperative changes.
[2017-08-12] MEDS: SERTRALINE 50 MG TAB PO SCH (09:02)
[2017-08-12] MEDS: FOLIC ACID 1 MG TAB PO SCH (09:02)
--- NOTE | 2017-08-12 09:28 | P.PN ---
Subjective Progress Note Date: 08/12/17 Principal diagnosis: CAD and status post CABG This is a pleasant 47-year-old gentleman who was admitted to the hospital and underwent CABG 3 with OMALLEY to LAD, SVG to diagonal, and SVG to RCA. From a cardiovascular standpoint of view, he denies having any chest pain or discomfort or difficulty breathing. Post operatively, he developed some visual disturbance which seems to be of unknown etiology. Hemodynamically he is a stable and he continues to be in normal sinus mechanism. The patient is going to be discharged home today. I will follow-up with him in the office as an outpatient. Objective - Vital Signs Vital signs: Vital Signs Temp 98.7 F 08/12/17 04:00 Pulse 90 08/12/17 04:00 Resp 16 08/12/17 04:00 BP 133/66 08/12/17 04:00 Pulse Ox 97 08/12/17 07:53 Intake & Output 08/11/17 08/12/17 08/12/17 18:59 06:59 18:59 Intake Total 180 240 Balance 180 240 Weight 118.2 kg 118 kg Intake: Oral 180 240 Other: Voiding Method Toilet Urinal # Voids 2 ABP, PAP, CO, CI - Last Documented Arterial Blood Pressure 144/66 Pulmonary Artery Pressure 28/17 Cardiac Output 6.5 Cardiac Index 2.8 - Constitutional General appearance: Present: no acute distress - Respiratory Respiratory: bilateral: CTA - Cardiovascular Rhythm: regular Heart sounds: normal: S1, S2 - Labs CBC & Chem 7: 08/12/17 05:31 08/12/17 05:31 Labs: Abnormal Lab Results - Last 24 Hours (Table) 08/11/17 08/11/17 08/11/17 Range/Units 11:39 16:38 21:31 RBC (4.30-5.90) m/uL Hgb (13.0-17.5) gm/dL Hct (39.0-53.0) % BUN (9-20) mg/dL Glucose (74-99) mg/dL POC Glucose (mg/dL) 201 H 189 H 234 H (75-99) mg/dL 08/12/17 08/12/17 08/12/17 Range/Units 03:35 05:31 05:31 RBC 2.98 L (4.30-5.90) m/uL Hgb 9.2 L (13.0-17.5) gm/dL Hct 27.5 L (39.0-53.0) % BUN 21 H (9-20) mg/dL Glucose 147 H (74-99) mg/dL POC Glucose (mg/dL) 185 H (75-99) mg/dL 08/12/17 Range/Units 06:05 RBC (4.30-5.90) m/uL Hgb (13.0-17.5) gm/dL Hct (39.0-53.0) % BUN (9-20) mg/dL Glucose (74-99) mg/dL POC Glucose (mg/dL) 143 H (75-99) mg/dL Assessment and Plan Assessment: assessment #1 coronary artery disease and status post CABG as described above #2 diabetes type 2 #3 hypertension #4 dyslipidemia Plan #1 continue the current medical treatment. The patient currently is on [facility] medical treatment #2 follow-up with the patient in the office as an outpatient.
[2017-08-12] MEDS ORDERED: FUROSEMIDE 10 MG/ML 4 ML VIAL IV STA (10:06)
[2017-08-12 11:43] LABS: Glucose,Whole Blood 161 mg/dL (75-99)
--- NOTE | 2017-08-12 13:51 | P.PN ---
Subjective Progress Note Date: 08/12/17 Principal diagnosis: Coronary artery diseaseAnel Gunn is a 47-year-old white male patient who follows with Dr. Araujo, presented to the emergency department on 07/28/2017 at 2215 with complaints of a burning sensation in the left arm, chest discomfort, not feeling well, nausea , and shortness of breath. Patient denied any fever or chills. Denied any cough or congestion. Past medical history includes coronary artery disease, diabetes mellitus, GERD/reflux, hyperlipidemia, hypertension, previous myocardial infarction, osteoarthritis, pneumonia, colitis, nephrolithiasis. Patient is a current smoker, has smoked for close to 35 years. He has a daily alcohol intake. EKG completed in the emergency room showed normal sinus rhythm with T-wave inversion in lead III and aVF. Chest x-ray was negative for any acute cardiopulmonary process. Blood work showed a EDC of 6.7, hemoglobin of 15.1, d-dimer was negative at 0.50, electrolytes were within normal limits, renal profile was normal. First and second Troponins were elevated at 0.044, 0.035. Patient was noted to have mild elevation of his AST, ALT, and alkaline phosphatase, at 67, 202, and 148 respectively. Lipase was 303, serum alcohol was less than 10. Patient underwent cardiac catheterization which revealed disease in the LAD at 60-70% involving the ostial portion, circumflex coronary artery that was previously stented was patent. There was a 95% stenosis in the right coronary artery proximally. There was a 60% stenosis before the bifurcation into PDA and PLV, with a PDA being diffusely diseased. Cardiothoracic surgery was consulted for evaluation for coronary artery bypass grafting. We are consulted for preop CABG pulmonary evaluation and postop CABG pulmonary management. On 08/03/2017, the patient is postop day #1 following coronary to bypass surgery. The patient underwent three-vessel bypass with OMALLEY to LAD, saphenous vein graft to diagonal, posterior lateral branch of RCA. The patient came into the intensive care unit intubated on a mechanical ventilator. Within 6 hours of arrival, the patient was weaned off the mechanical ventilator and the patient was extubated without any major difficulties. The patient is awake and alert this morning sitting up on a chair. The patient has a adequate hemodynamic with adequate cardiac output index. The [facility] catheter will be removed. The chest x-ray shows small better pleural effusion and the chest tubes are all in good location. The patient was having some issues with hypertension. He was briefly placed on Cleviprex which was discontinued. Currently the patient is on nitroglycerin at 5 mcg/m. The patient is also on Lopressor this will be started this morning. He is afebrile. He is having adequate pain control. Sternum stable clean and intact. No change in mental status. He is following commands and answering questions appropriately. His underlying rhythm is sinus. His hemoglobin is at 11.4. The chest tube output from the left was 165 mL during this last shift and from the mediastinum is down 96 and mouth for the next shift. The patient's body weight is 121 kg. He will be encouraged to use the incentive spirometer. No other significant events overnight. On 08/04/2017 I'm seeing this patient for a follow-up. The patient is postop day #2. He is sitting up on a chair. He has still mediastinal chest tubes and a left pleural chest tube. This sometimes will be removed today 9 and output has been low. The patient remains hemodynamic is stable. The patient is off the nitroglycerin drip. The patient is maintaining his own blood pressure. Slightly tachycardic and we have made suggestions to increase the metoprolol to 50 mg by mouth twice a day. He is also on 5 mg of lisinopril for blood pressure control. He is on insulin drip which will be switched to Lantus insulin. He is taking 40 units of insulin drip on an hourly basis. He is tolerating his diet. No nausea or vomiting. Sternum stable clean and intact. Hemodynamically stable. He is in a sinus rhythm. He mentions that no cold is giving him side effects and the hives made recommendations to switch him to Tylenol 3 for pain control. He is doing well. No other significant events over the past 24 hours. Neurologically awake and alert. On 08/05/2017 I'm seeing this patient for a follow-up and is postop day #3. The mediastinal tubes have been removed. The patient has a left pleural chest tube and output of which is minimal and can be taken out. He is hemodynamically stable. His pain is under good control with Tylenol threes. His blood sugar needs to be further adjusted knowing that the patient is still having some limited blood sugar elevation and I will suggest increasing the Lantus dose at baseline. No altered mentation. No agitation. He is requesting a Xanax to help him with sleep at nighttime. Otherwise, he is hemodynamically stable and there has been no other significant events over the past 24 hours. On 08/06/2017 the patient is postop day #4. The patient is doing extremely well from the hemodynamic standpoint. Chest tubes have been removed. Pacemaker wires have been removed. The patient had a chest x-ray this morning that showed some cardiomegaly and limited left basilar atelectasis and small effusions. Otherwise the right lung is clear. The patient is on room air. He is having some issues with sleeping. Earlier this morning he was also found to have some early signs of delirium tremens and he was given a milligram of Ativan. He is not able to sleep well overnight. He feels a bit lethargic today and resolving some morning headaches. No change in mental status. No hallucinations. No delusions. No focal neurological deficits. Pupils are equal and reactive to light. No seizure activity. He is able to ambulate. His pulling approximately 1500 on his incentive spirometer. The patient has adequate pain control. He is on Tylenol 3. Sternum stable clean and intact. No other significant events overnight. The patient is seen again today 08/07/2017 in follow-up on the selective care unit. This is postoperative day #5. He is awake and alert in no acute distress. His pain is well managed. He's been up ambulating with assistance. He is currently maintaining good O2 saturations in the high 90s on room air. He continues to work well with his incentive spirometer. White count 6.7. Hemoglobin 10.0. Creatinine 1.00. On 08 08 2017 the patient is being seen for a follow-up. The patient is looking well. Patient is postop day #6 following three-vessel bypass surgery. The patient has adequate pain control. He has not taken his Tylenol 3. No respiratory difficulties. Neurology evaluated this patient and the patient has no deficits for now. CAT scan of the brain was also negative. He is on Antivert for now. No cough. No sputum production. No fever or chills. No other significant events overnight. Pulse oxing 95%. Chest tubes are out. The chest x-ray from today showed some small left-sided pleural effusion and there is also pulmonary vessel congestion. The patient is seen again today 08/09/2017 in follow-up on the selective care unit. He is awake and alert in no acute distress. He's been up ambulating in the hallway without significant distress. He denies any worsening shortness of breath, cough or congestion. Is working well of the incentive spirometer. Maintaining good O2 saturations in the upper 90s on room air. This x-ray is stable showing bilateral infiltrates and small effusions. No significant change. He is afebrile. White count 8.7. Hemoglobin 9.2. Creatinine 0.97. The patient is seen again today 08/10/2017 in follow-up on the selective care unit. He is currently resting quite comfortably in bed. He is awake and alert in no acute distress. He denies any worsening shortness of breath, cough or congestion. He is maintaining good O2 saturations in the upper 90s on room air. He has been afebrile. Hemodynamically stable. Chest x-ray reveals stable bilateral infiltrates and small effusions. White count 9.3. Hemoglobin 8.4. Creatinine 0.85. The patient is seen again today 08/11/2017 in follow-up on the selective care unit. He is currently sitting up in bed he is awake and alert in no acute distress. He denies any shortness of breath, cough or congestion. No significant pain or discomfort. He's been up ambulating in the hallway without acute distress. He is maintaining O2 saturations up to 100% on room air. His been afebrile. Hemodynamically stable. White count 8.2. Hemoglobin 8.6. Creatinine 0.90. The patient is seen again today 08/12/2017 in follow-up on the selective care unit. He remains awake and alert in no acute distress. He's been up to the shower without difficulty. He denies any worsening shortness of breath, cough or congestion. No chills or night sweats. Continues to maintain good O2 saturations in the upper 90s on room air. White count 8.8. Hemoglobin 9.2. Creatinine 0.70. Objective - Vital Signs Vital signs: Vital Signs Temp 98.7 F 08/12/17 04:00 Pulse 90 08/12/17 04:00 Resp 16 08/12/17 04:00 BP 133/66 08/12/17 04:00 Pulse Ox 97 08/12/17 07:53 Intake & Output 08/11/17 08/12/17 08/12/17 18:59 06:59 18:59 Intake Total 180 480 Output Total 350 Balance 180 130 Weight 118.2 kg 118 kg Intake: Oral 180 480 Output: Urine 350 Other: Voiding Method Toilet Urinal # Voids 2 ABP, PAP, CO, CI - Last Documented Arterial Blood Pressure 144/66 Pulmonary Artery Pressure 28/17 Cardiac Output 6.5 Cardiac Index 2.8 - Exam GENERAL EXAM: Alert, active, comfortable in no apparent distress. HEAD: Normocephalic. EYES: Normal reaction of pupils, equal size. NOSE: Clear with pink turbinates. THROAT: No erythema or exudates. NECK: No masses, no JVD. CHEST: Incision clean dry well approximated. Sternum stable. LUNGS: Equal air entry with crackles in the posterior bases.. CVS: S1 and S2 normal with no audible murmur, regular rhythm. ABDOMEN: No hepatosplenomegaly, normal bowel sounds, no guarding or rigidity. SPINE: No scoliosis or deformity SKIN: No rashes CENTRAL NERVOUS SYSTEM: No focal deficits, tone is normal in all 4 extremities. EXTREMITIES: There is no peripheral edema. No clubbing, no cyanosis. Peripheral pulses are intact. - Labs CBC & Chem 7: 08/12/17 05:31 08/12/17 05:31 Labs: Abnormal Lab Results - Last 24 Hours (Table) 08/11/17 08/11/17 08/12/17 Range/Units 16:38 21:31 03:35 RBC (4.30-5.90) m/uL Hgb (13.0-17.5) gm/dL Hct (39.0-53.0) % BUN (9-20) mg/dL Glucose (74-99) mg/dL POC Glucose (mg/dL) 189 H 234 H 185 H (75-99) mg/dL 08/12/17 08/12/17 08/12/17 Range/Units 05:31 05:31 06:05 RBC 2.98 L (4.30-5.90) m/uL Hgb 9.2 L (13.0-17.5) gm/dL Hct 27.5 L (39.0-53.0) % BUN 21 H (9-20) mg/dL Glucose 147 H (74-99) mg/dL POC Glucose (mg/dL) 143 H (75-99) mg/dL 08/12/17 Range/Units 11:42 RBC (4.30-5.90) m/uL Hgb (13.0-17.5) gm/dL Hct (39.0-53.0) % BUN (9-20) mg/dL Glucose (74-99) mg/dL POC Glucose (mg/dL) 161 H (75-99) mg/dL Assessment and Plan Assessment: Assessment: #1. Symptomatic coronary artery disease, cardiac catheterization performed showed severe proximal stenosis of the RCA, progression of stenosis of the proximal LAD and patent circumflex stents. Status post coronary artery bypass grafting 3 with OMALLEY to LAD, saphenous vein grafts to the diagonal artery and posterior branch of the right coronary artery. #2. History of coronary artery disease, with prior stenting of the circumflex artery and prior history of myocardial infarction #3. Diabetes mellitus type 2 #4. Nicotine dependence, ongoing #5. Daily alcohol intake, patient drinks around a pint of Rum a day #6. Hyperlipidemia, hypertension #7. GERD/reflux #8. Chronic lumbar pain #9. Osteoarthritis #10. History of nephrolithiasis Plan: The patient was seen and evaluated by Dr. Askew. He remains stable from the pulmonary standpoint. He could be discharged home once cleared by thoracic surgery. Follow-up in our office in 1 week's time. He is however encouraged to call sooner with any pulmonary issues or other questions or concerns. I, the cosigning physician, performed a history & physical examination of the patient. Lungs sounds a crackles in the bilateral posterior bases. Maintaining good O2 saturations in the 90s on room air. I discussed the assessment and plan of care with my nurse practitioner, Amanda Durand. I attest to the above note as dictated by her.
--- NOTE | 2017-08-12 14:49 | P.DS ---
Providers Date of admission: 07/28/17 22:40 Expected date of discharge: 08/12/17 Attending physician: Cortez Baron Consults: 07/28/17 22:40 Consult Physician Urgent Consulting Provider: Armando Rangel Consult Reason/Comments: cp Do you want consulting provider notified?: Yes 07/29/17 11:49 Consult Physician Routine Consulting Provider: Luis A Marshall Consult Reason/Comments: pre-op cabg Do you want consulting provider notified?: Yes Consult to Anesthesia Routine Consulting Provider: Anesthesia,Services Consult Reason/Comments: Cardiac Surgery Pre-Op 08/02/17 14:32 Consult Physician Routine Consulting Provider: Dominique Soriano Consult Reason/Comments: Medical Management Do you want consulting provider notified?: Already Contacted 08/05/17 09:48 Consult Physician Routine Consulting Provider: Cristino Plummer Consult Reason/Comments: Possible Inpatient Rehab Do you want consulting provider notified?: Yes 08/06/17 13:20 Consult Physician Routine Consulting Provider: Concepción Lisa Consult Reason/Comments: Vertigo Do you want consulting provider notified?: Yes 08/07/17 08:00 Consult Physician Routine Consulting Provider: Brian Dunham Consult Reason/Comments: Patient s/p CABG and blurred vision bilaterally. Do you want consulting provider notified?: Yes Primary care physician: Van Hinds - Discharge Diagnosis(es) (1) History of myocardial infarction Current Visit: Yes Status: Acute (2) Coronary artery disease Current Visit: Yes Status: Chronic (3) Hypertension Current Visit: Yes Status: Chronic (4) Diabetes mellitus type 2 in obese Current Visit: Yes Status: Chronic (5) Obesity (BMI 30-39.9) Current Visit: Yes Status: Acute (6) History of pneumonia Current Visit: No Status: Resolved (7) GERD (gastroesophageal reflux disease) Current Visit: Yes Status: Chronic (8) Hyperlipemia Current Visit: No Status: Acute (9) Nicotine dependence Current Visit: Yes Status: Chronic Hospital Course: FINAL DIAGNOSIS: 1. Symptomatic multivessel coronary artery disease 2. History of known coronary artery disease with prior stenting to his right coronary artery and circumflex coronary artery 3. Obesity with metabolic syndrome 4. Diabetes mellitus type 2 5. Hypertension 6. Hyperlipidemia 7. Non-ST elevated myocardial infarction this admission 8. Osteoarthritis 9. Current nicotine dependence 10. Chronic lumbar back pain 11. Gastroesophageal reflux disease 12. History of nephrolithiasis 13. History of pneumonia. 14. Pseudoaneurysm to his right groin post heart catheterization. 15. Diabetic retinopathy, nonproliferative, associated with type 2 diabetes 16. Cataract both eyes 17. Blurred vision 18. Dizziness PRINCIPAL PROCEDURE: 1. Left coronary angiography 2. Successful ultrasound-guided pseudoaneurysm injection with complete thrombosis to his right groin. 3. Urgent coronary artery bypass grafting 3 vessels with placement of his left internal mammary artery to his left anterior setting coronary artery, a reverse greater saphenous vein graft to his diagonal coronary artery, a reverse greater saphenous vein graft to his posterior lateral branch of his right coronary artery. 4. Endoscopic vein harvesting of his left greater saphenous vein. 5. Intraoperative epi-aortic ultrasound and transesophageal echocardiogram. HISTORY OF PRESENT ILLNESS: This is a 47-year-old gentleman who is followed by Dr. Araujo on an outpatient basis. The patient has a past medical history significant for known coronary artery disease with prior stenting to his right coronary artery and circumflex coronary artery, obesity with metabolic syndrome , diabetes please type II, hypertension, hyperlipidemia, current tobacco dependence, chronic lumbar back pain, GERD, and history of pneumonia. He presented to the emergency department here at [facility] with complaints of chest pain that occurred at rest. A 12-lead EKG was completed which showed evidence of an old inferior wall myocardial infarction without ST elevation. He was subsequently admitted to the hospital for further evaluation and treatment. HOSPITAL COURSE: The patient was admitted to the hospital and underwent a cardiac catheterization which demonstrated a severe 95% proximal stenosis of his right coronary artery, a 60-70% stenosis involving the ostial portion of his left anterior descending coronary artery, and a patent stent to his circumflex coronary artery. A 2-D echocardiogram was also completed which showed an overall normal left ventricular size, with an overall ventricular systolic function to be mildly impaired with an ejection fraction between 45 and 50%, trace mitral valve regurgitation and trace tricuspid valve regurgitation. Postoperative heart catheterization the patient developed a right groin pseudoaneurysm which was successfully ultrasound-guided injected with complete thrombosis by interventional radiology. Due to the patient's presenting symptoms, cardiac catheterization and 2-D echocardiogram results a consult was placed to cardiothoracic surgery for further evaluation and recommendations for myocardial revascularization. The heart catheterization and 2-D echocardiograms were reviewed with the patient by Dr. Baron and an urgent coronary artery bypass grafting surgery was recommended. After obtaining consent the patient was taken to the operating room where Dr. Ko Liriano performed an urgent coronary artery bypass grafting 3 vessels with placement of his left internal mammary artery to his left anterior descending coronary artery, a reverse greater saphenous vein graft to his diagonal coronary artery, and a reverse greater saphenous vein graft to his posterior lateral branch of his right coronary artery. The patient also underwent endoscopic vein harvesting of his left greater saphenous vein, and an intraoperative transesophageal echocardiogram and epi-aortic scanning. The patient was transferred to the cardiovascular intensive care unit where he was recovered, monitored hemodynamically, and where he progressed cardiac rehabilitation phase 1. The patient was extubated, all lines, tubes and drips were discontinued when appropriate and transferred orders were placed for 6 east selective care for further monitoring and rehabilitation. His oxygen was titrated down, he continued to participate in physical therapy and was ready to be discharged to home on postoperative day #10. He has received written and verbal instructions regarding his medications, activity restrictions, signs and symptoms requiring physician notification and all of his follow-up appointments. He will be [facility] by [facility] on an outpatient basis. The patient was not discharged home on an EMILY inhibitor due to some episodes of hypotension, this will be reevaluated as an outpatient. COMPLICATIONS: There were no postoperative complications. CONSULTATIONS: 1. Dr. Cortez for cardiology management 2. Dr. Marshall for pulmonary and ventilator management 3. Dr. Soriano for medical management 4. Dr. Plummer for rehab management 5. Dr. Lisa for neurology management, dizziness 6. Dr. Brian Dunham ophthalmology management, blurred vision DISCHARGE INSTRUCTIONS: 1. No driving for 4 weeks, or until physician gives their ok. 2. The patient should sleep in their own bed, no medical bed needed. 3. Stairs are not an issue. If the bedroom is upstairs, it is advised that the patient go up at night and down in the morning for the first week. Go slowly, using handrail and take 1 step at a time. 4. KATHERINE hose are to be worn for 30 days or until physician discontinues. 5. Heart hugger is to be worn 100% of the time until physician discontinues.( except when showering) 6. No lifting, pushing, or pulling more than 10 pounds for 12 weeks. The physician will advise of any restriction changes. 7. The patient is expected to continue the prescribed walking program. 8. Continue pain control per as needed orders. 9. Continue with incentive spirometry and splinting/heart hugger until otherwise directed by the physician. 10. Must shower daily using liquid antibacterial soap and a separate white washcloth for each individual incision. 11. Routine sternal incision care, no ointments, lotions or powders on the incisions. 12. Please notify surgeon/nurse practitioner for temperature greater than 101F or purulent drainage from incisions 13. Prescriptions for first 30 days given per cardiac surgery service. After 30 days, all prescription refills obtained through cardiology/primary care physician. 14. A red arm and has been placed on this patient it should be worn for 30 days post surgery and will be removed by the cardiothoracic surgeons. If an ER visit is necessary, please make sure the number on the red arm band is called. 15. The staff educator has met with the patient and has reviewed diabetic education with the patient and instructions have been reviewed on insulin injections. He has been instructed to maintain a log of his Accu-Cheks before meals and at bedtime and to take the log of his blood sugars to his primary care physician for further recommendations on an outpatient basis. HOME HEALTH SERVICES TO PROVIDE: RN SKILLED HOME CARE SERVICES FOR POST-OP SURGICAL PATIENTS WITH THE FOLLOWING: Coronary Artery Bypass Surgery (CABG), Mitral Valve Replacement/ Repair ( MVR), Aortic Valve Replacement/Repair (AVR) RN TO CONTINUE EDUCATION FROM ``ROAD TO A HEALTH HEART PATIENT EDUCATION MANUAL" (GIVEN TO PATIENT IN THE HOSPITAL) MEDICATION RECONCILIATION WITH EDUCATION NEEDED ON FIRST HOME VISIT EMPHASIZE IMPORTANCE OF WEARING BREAST SUPPORT/HEART HUGGER ENCOURAGE USE OF INCENTIVE SPIROMETER 10 X EVERY HOUR WHILE AWAKE ENCOURAGE UTILIZATION OF LOWER EXTREMITY COMPRESSION STOCKINGS/KATHERINE HOSE and ELEVATE LEGS ABOVE LEVEL OF HEART WHILE AT REST. ENCOURAGE AMBULATION 3-5x/day INCREASING TOLERATES, WHILE AVOID EXTREMES IN TEMPERATURE FREQUENCY: RN TO OPEN THE PATIENT WITHIN 24 HOURS OF DISCHARGE FROM THE HOSPITAL WITH TELEHEALTH INSTALLED AT [facility] [place], RN TO VISIT 2-3 X A WEEK FOR 4 WEEKS ESTABLISHED BY PATIENT NEEDS. LABORATORY: CBC, CMP TO BE DRAWN ON THE THIRD DAY HOME, 08/16/2017 (RAN STAT ) FAX RESULTS TO [phone]. TELEHEALTH PARAMETERS: WEIGHT: NOTIFY MD OF WEIGHT GAIN OF 2 LBS IN 24 HOURS OR 5 LBS IN ONE WEEK HR: NOTIFY MD OF HR <55 BPM OR HR>100 BPM BP: NOTIFY MD IF BP <90/55 OR BP>140/100 O2 SAT: NOTIFY MD IF PO2<93% ON ROOM AIR SEND TELEHEALTH REPORT TO TOURIST ADVISER AND CARDIOVASCULAR SURGEON THE FIRST WEEK OF CARE AND THEN BI-WEEKLY. PLEASE ADDITIONALLY COMMUNICATE ANY ABNORMALS AND NEW FINDINGS TO THE SURGEONS OFFICE. Patient Condition at Discharge: Serious Plan - Discharge Summary New Discharge Prescriptions: New Insulin Glargine,Hum.rec.anlog [Basaglar Kwikpen U-100] 40 unit SQ DAILY #2 syr Insulin Aspart [NovoLOG Flexpen] 10 units SQ AC-TID #2 pen Aspirin 325 mg PO DAILY #30 tab Folic Acid 1 mg PO DAILY@1200 #30 tab Furosemide [Lasix] 40 mg PO DAILY #30 tab Meclizine [Antivert] 12.5 mg PO BID #60 tab Metoprolol Tartrate [Lopressor] 100 mg PO BID #120 tab Sennosides-Docusate Sodium [Senokot-S] 2 each PO HS #30 tab Sertraline [Zoloft] 50 mg PO DAILY #30 tab Thiamine [Vitamin B-1] 100 mg PO BID@1200,1700 #60 tab Continue Multivitamins, Thera [Multivitamin (formulary)] 1 tab PO DAILY Atorvastatin [Lipitor] 80 mg PO HS #30 tab Clopidogrel [Plavix] 75 mg PO DAILY #30 tablet HYDROcodone/APAP 10-325MG [Edwards 10-325] 1 - 2 tab PO Q6H PRN #30 tab PRN Reason: Pain Ranitidine HCl 150 mg PO BID #60 tablet Discontinued Aspirin EC [Ecotrin Low Dose] 81 mg PO DAILY Metoprolol Tartrate [Lopressor] 50 mg PO BID Fish Oil/Dha/Epa [Fish Oil 1,200 mg Fish Oil] 1 cap PO DAILY metFORMIN HCL [Glucophage] 1,000 mg PO BID #60 tab Nitroglycerin Sl Tabs [Nitrostat] 0.4 mg SUBLINGUAL Q5M PRN #25 tab PRN Reason: Angina Lisinopril [Prinivil] 5 mg PO DAILY Glimepiride [Amaryl] 2 mg PO BID Discharge Medication List Multivitamins, Thera [Multivitamin (formulary)] 1 tab PO DAILY 12/06/16 [History ] Aspirin 325 mg PO DAILY #30 tab 08/12/17 [Rx] Atorvastatin [Lipitor] 80 mg PO HS #30 tab 08/12/17 [Rx] Clopidogrel [Plavix] 75 mg PO DAILY #30 tablet 08/12/17 [Rx] Folic Acid 1 mg PO DAILY@1200 #30 tab 08/12/17 [Rx] Furosemide [Lasix] 40 mg PO DAILY #30 tab 08/12/17 [Rx] HYDROcodone/APAP 10-325MG [Edwards 10-325] 1 - 2 tab PO Q6H PRN #30 tab 08/12/17 [ Rx] Insulin Aspart [NovoLOG Flexpen] 10 units SQ AC-TID #2 pen 08/12/17 [Rx] Insulin Glargine,Hum.rec.anlog [Basaglar Kwikpen U-100] 40 unit SQ DAILY #2 syr 08/12/17 [Rx] Meclizine [Antivert] 12.5 mg PO BID #60 tab 08/12/17 [Rx] Metoprolol Tartrate [Lopressor] 100 mg PO BID #120 tab 08/12/17 [Rx] Ranitidine HCl 150 mg PO BID #60 tablet 08/12/17 [Rx] Sennosides-Docusate Sodium [Senokot-S] 2 each PO HS #30 tab 08/12/17 [Rx] Sertraline [Zoloft] 50 mg PO DAILY #30 tab 08/12/17 [Rx] Thiamine [Vitamin B-1] 100 mg PO BID@1200,1700 #60 tab 08/12/17 [Rx] Follow up Appointment(s)/Referral(s): Guzman Araujo MD [Primary Care Provider] - 08/19/17 11:20 am Garo Torres MD [REFERRING] - 1 Week (endocrinology-Per Dr Araujo office, a note is in pts chart to send referral at appointment.) Brian Dunham MD [STAFF PHYSICIAN] - 09/03/17 9:50 am Luis A Marshall DO [Doctor of Osteopathic Medicine] - 08/27/17 2:15 pm [facility], [NON-STAFF] - Ko Liriano MD [STAFF PHYSICIAN] - 08/27/17 9:30 am Nic Cortez MD [STAFF PHYSICIAN] - 08/17/17 10:45 am Ambulatory/Diagnostic Orders: Complete Blood Count w/diff [LAB.AMB] Time Frame: 08/16/17, Facility: [facility], Location: [facility] Comprehensive Metabolic Panel [LAB.AMB] Time Frame: 08/16/17, Facility: [facility], Location: [facility] Patient Instructions/Handouts: Heart Healthy Diet (DC), Sternal Precautions ( GEN), Coronary Artery Bypass Graft (DC) Activity/Diet/Wound Care/Special Instructions: pt will use DC RX and need indigent funds-please call [phone] when escribed. Need written script for insulin needles. Glucometer given to patient, recommended Funding Options-[employer] for supplies, '[employer]' brand is most affordable Maintain log of Accu-Checks before meals and at bedtime, take to follow-up with PCP for further recommendations OP DM education, have Dr Araujo send referral to Dr Torres for follow up appointment Diet: consist. Carb/Cardiac Discharge/Stand Alone Forms: Work/Release Restrictions Form Discharge Disposition: HOME WITH HOME HEALTH SERVICES
[2017-08-12 15:57] VITALS: PULSE 94; RESP 20; TEMP 97.1
[2017-08-12] MEDS: HYDROcodone/APAP 10-325MG 1 EACH TAB PO PRN (16:09)
[2017-08-12 16:38] LABS: Glucose,Whole Blood 153 mg/dL (75-99)
--- NOTE | 2017-08-12 16:49 | P.PN ---
Subjective Progress Note Date: 08/12/17 Progress NOTE l being dictated for Dr. Jones. Interval history: This a 47-year-old gentleman admitted with chest pain, possible acute non-STEMI with known history of CAD, MN, and multiple other medical issues. Evaluated by cardiology. Underwent cardiac catheterization this morning, reporting triple vessel disease: 60-70% stenosis of LAD involving ostial portion, 95% in the proximal RCA, 60% stenosis just prior to bifurcation into the PDA and PLV. Cardiothoracic surgery and pulmonary consulted. Carotid Doppler reporting thick neck with no significant velocity elevations. LFTs improving. Denies chest pain, palpitations or increased shortness of breath. 07/30/2017 developed hematoma at right groin site of cardiac cath., during the night. Ultrasound reporting pseudoaneurysm, status post injection with complete thrombosis as per IR. Denies abdominal pain. Evaluated by cardiothoracic surgery, scheduled for CABG on Wednesday. Denies chest pain, palpitations or increasing shortness of breath. Blood sugars remain elevated in the 200s. 07/31/2017 No overnight events 08/01/2017 No chest pain no significant overnight events 08/03/2079 Patient is status post ABG postoperative day one patient has a left right chest tubes along with mediastinal chest tube. Patient's [place] is out patient is comparing of pain in the chest beyond that no other issues patient is on IV insulin which we'll try to switch to Lantus and aspart regimen 08/04/2017 sitting up in chair, IS up to 1000, telemetry sinus rhythm. Ambulated in hallway with mild increased shortness of breath.chest x-ray reporting some improvement in aeration.elevated sugars,recently transitioned from insulin drip to long-acting insulin added to med regime. 08/05/2017 no overnight events. Blood sugars better controlled but elevated. Ambulating in hallway, tolerating increase in exertion well. Telemetry sinus rhythm.pain controlled.hemoglobin 8.7.renal function mildly worseningwith elevated potassium of 5.4. 08/06/2017. Patient is transferred out of ICU to telemetry unit.chest x-ray reporting minimal apical pneumothorax.incentive spirometer up to 1500. Passing flatus. Received Ativan earlier this morning for early DTs. No seizure activity reported.Complaining of dizziness and visual blurring in both eyes. Brain CT completed, reporting no acute intracranial process. Evaluated by neurology with recommendations. Review of systems: CONSTITUTIONAL: No fever, complains of feeling tired-did not sleep well last night. HEENT: Reports visual blurring upper thighs, no hearing problems. CARDIOVASCULAR: No chest pain, no palpitations, no syncope. PULMONARY: No shortness of breath, no cough, no hemoptysis. GASTROINTESTINAL: No diarrhea, no nausea, no vomiting, no abdominal pain. Normoactive bowel sounds. NEUROLOGICAL: Mild headache earlier-resolved after receiving Tylenol, no weakness, no numbness. Complains of dizziness. HEMATOLOGICAL: Denies any bleeding or petechiae. GENITOURINARY: Denies any burning micturition, frequency, or urgency. MUSCULOSKELETAL/RHEUMATOLOGICAL: Denies any joint pain, swelling, or any muscle pain. ENDOCRINE: Denies any polyuria or polydipsia. PSYCHIATRIC: No anxiety, no depression The rest of the 14 point review of systems is negative Active Medications Acetaminophen/Codeine Phosphate (Tylenol #3) 2 each PO Q4HR PRN PRN Reason: Pain Last Admin: 08/06/17 00:41 Dose: 2 each Albuterol/Ipratropium (Duoneb 0.5 Mg-3 Mg/3 Ml Soln) 3 ml INHALATION RT-Q2H PRN PRN Reason: Shortness Of Breath Or Wheezing Alprazolam (Xanax) 0.5 mg PO HS PRN PRN Reason: Anxiety Last Admin: 08/05/17 20:00 Dose: 0.5 mg Aspirin (Aspirin) 325 mg PO DAILY [facility] Last Admin: 08/06/17 08:00 Dose: 325 mg Atorvastatin Calcium (Lipitor) 40 mg PO DAILY [facility] Last Admin: 08/06/17 08:01 Dose: 40 mg Bisacodyl (Dulcolax) 10 mg RECTAL DAILY PRN PRN Reason: Constipation Clopidogrel Bisulfate (Plavix) 75 mg PO DAILY [facility] Last Admin: 08/06/17 08:01 Dose: 75 mg Folic Acid (Folic Acid) 1 mg PO DAILY@1200 [facility] Last Admin: 08/06/17 11:34 Dose: 1 mg Heparin Sodium (Porcine) (Heparin) 5,000 unit SQ Q8HR [facility] Last Admin: 08/06/17 17:29 Dose: 5,000 unit Insulin Aspart (Novolog) 0 unit SQ ACHS [facility] PRN Reason: Protocol Last Admin: 08/06/17 17:31 Dose: 5 unit Insulin Aspart (Novolog) 10 unit SQ AC-TID [facility] Last Admin: 08/06/17 17:30 Dose: 10 unit Insulin Detemir (Levemir) 25 unit SQ [facility] Last Admin: 08/05/17 21:06 Dose: 25 unit Ketorolac Tromethamine (Toradol) 15 mg IVP Q6HR [facility] Stop: 08/07/17 07:22 Last Admin: 08/06/17 17:27 Dose: 15 mg Lorazepam (Ativan) 1 mg IV Q1HR PRN PRN Reason: CIWA 10 to 15 Lorazepam (Ativan) 1 mg IV Q2HR PRN PRN Reason: CIWA 8 or 9 Last Admin: 08/06/17 08:00 Dose: 1 mg Magnesium Hydroxide (Milk Of Magnesia) 2,400 mg PO BID PRN PRN Reason: Constipation Meclizine HCl (Antivert) 12.5 mg PO BID [facility] Metoprolol Tartrate (Lopressor) 50 mg PO BID [facility] Last Admin: 08/06/17 08:00 Dose: 50 mg Miscellaneous Information (Magnesium Per Protocol) 1 each MISCELLANE DAILY PRN ; Protocol PRN Reason: Per Protocol Miscellaneous Information (Phosphorus Per Protocol) 1 each MISCELLANE DAILY PRN ; Protocol PRN Reason: Per Protocol Miscellaneous Information (Potassium Per Protocol) 1 each MISCELLANE DAILY PRN ; Protocol PRN Reason: Per Protocol Multivitamins (Theragran) 1 each PO DAILY@1200 [facility] Last Admin: 08/06/17 11:34 Dose: 1 each Ondansetron HCl (Zofran) 4 mg IVP Q6HR PRN PRN Reason: Nausea And Vomiting Pantoprazole Sodium (Protonix) 40 mg PO AC-BRKFST [facility] Last Admin: 08/06/17 08:01 Dose: 40 mg Senna/Docusate Sodium (Senokot-S) 2 each PO HS [facility] Last Admin: 08/05/17 20:00 Dose: 2 each Sodium Chloride (Saline Flush) 10 ml IV BID [facility] Last Admin: 08/06/17 08:01 Dose: 10 ml Thiamine HCl (Vitamin B-1) 100 mg PO BID@1200,1700 [facility] Last Admin: 08/06/17 17:27 Dose: 100 mg 4/3/18sitting up in chair, no acute distress. Afebrile. incentive spirometer up to 1300. Chest x-ray reporting stable bilateral infiltrates, small effusions. Complains of bilateral blurry vision,accompanied by inability to read,occasional dizziness.ophthalmology consult in place with recommendations pending.blood sugars elevated. 08/11/17 ambulating in hallway, tolerated exertion well. Afebrile. Maintaining O2 sats of 100% on room air. Blood sugars better controlled. Evaluated by nut steamer yesterday with recommendations noted. 08/12/2017. Blood sugars controlled. Denies chest pain, palpitations or increasing shortness of breath. Telemetry sinus rhythm. Afebrile, normal WBC. Ambulating, showered, tolerated exertion well. Maintaining O2 sats of high 90s on room air. Preparing for discharge home today. Objective - Vital Signs Vital signs: Vital Signs Temp 97.1 F L 08/12/17 15:53 Pulse 94 08/12/17 15:53 Resp 20 08/12/17 15:53 BP 118/65 08/12/17 15:53 Pulse Ox 96 08/12/17 15:53 Intake & Output 08/11/17 08/12/17 08/12/17 18:59 06:59 18:59 Intake Total 180 480 Output Total 350 Balance 180 130 Weight 118.2 kg 118 kg Intake: Oral 180 480 Output: Urine 350 Other: Voiding Method Toilet Urinal # Voids 2 ABP, PAP, CO, CI - Last Documented Arterial Blood Pressure 144/66 Pulmonary Artery Pressure 28/17 Cardiac Output 6.5 Cardiac Index 2.8 - Exam PHYSICAL EXAM: VITAL SIGNS: As above GENERAL: Sitting up in bed, no acute distress HEENT: Conjunctivae normal. eyes normal. Oral mucosa moist NECK: No JVD. No thyroid enlargement. No LNs CARDIOVASCULAR: Regular S1, S2. No murmur RESPIRATION: Breath sounds diminished in the bases. no rhonchi, bibasilar, fine posterior bibasilar crackles. No wheezing ABDOMEN: Soft, nontender . No guarding. no masses palpable. Bowel sounds heard. LEGS: No edema. no swelling PSYCHIATRY: Alert and oriented -3, mood and affect normal. NERVOUS SYSTEM: Cranial N 2-12 grossly normal. No nystagmus, Moves all 4 limbs. Strength and sensation grossly intact. - Labs CBC & Chem 7: 08/12/17 05:31 08/12/17 05:31 Labs: Abnormal Lab Results - Last 24 Hours (Table) 08/11/17 08/12/17 08/12/17 Range/Units 21:31 03:35 05:31 RBC 2.98 L (4.30-5.90) m/uL Hgb 9.2 L (13.0-17.5) gm/dL Hct 27.5 L (39.0-53.0) % BUN (9-20) mg/dL Glucose (74-99) mg/dL POC Glucose (mg/dL) 234 H 185 H (75-99) mg/dL 08/12/17 08/12/17 08/12/17 Range/Units 05:31 06:05 11:42 RBC (4.30-5.90) m/uL Hgb (13.0-17.5) gm/dL Hct (39.0-53.0) % BUN 21 H (9-20) mg/dL Glucose 147 H (74-99) mg/dL POC Glucose (mg/dL) 143 H 161 H (75-99) mg/dL 08/12/17 Range/Units 16:36 RBC (4.30-5.90) m/uL Hgb (13.0-17.5) gm/dL Hct (39.0-53.0) % BUN (9-20) mg/dL Glucose (74-99) mg/dL POC Glucose (mg/dL) 153 H (75-99) mg/dL Assessment and Plan Assessment: 1. Chest pain, possible acute non-STEMI, status post cardiac catheterization with triple-vessel disease, status post CABG 2. Troponin 0.044 3. CAD with history of MN and stent 4. Diabetes mellitus type 2, hemoglobin A1c 9.6 5. Gastroesophageal reflux disease 6. Hyperlipidemia 7. Alcohol abuse, possible early DTs 8. Ongoing nicotine abuse 9. Pseudoaneurysm 10. mild acute renal failure with hyperkalemia 11. Postoperative anemia 12. Bilateral blurred vision with dizziness, possible vertigo; diabetic retinopathy associated with diabetes mellitus type 2-further evaluation/workup outpatient with ophthalmology, . Plan: Continue on current medication regime ,monitoring and symptomatic treatment. continue on aspirin, statin. Follow up with Ophthalmology outpatient for further workup. Follow-up with plastic mould maker outpatient. Maintain log of Accu-Cheks and take to follow-up visit with PCP and plastic mould maker for further recommendations. Aggressive pulmonary toileting.discharge planning in progress as per cardiothoracic surgery. The impression and plan of care has been dictated as directed. : I performed a history and examination of this patient, discussed the same with the dictator. I agree with the dictator's note ,documented as a scribe. Any additional findings or plans will be noted.
[2017-08-12 17:07] VITALS: BP 109/59
--- NOTE | 2017-08-12 23:25 | P.PN ---
Subjective Progress Note Date: 08/12/17 This patient is a 47-year-old male who is postoperative day 5 following coronary artery bypass grafting. He was transferred out of the intensive care unit yesterday and complained of symptoms of visual blurring and dizziness. He underwent a urgent computed tomography scan of the brain which was negative for any acute abnormalities. MRI of the brain has been recommended. Patient continues to show slight improvement. His vision continues to show signs of blurriness. We have consulted ophthalmology for further assessment. The patient otherwise seems to be doing fairly well. As noted he is postoperative day #7. He does have history of underlying diabetes mellitus and his last hemoglobin A1c was elevated at 9.7. This may also be contributing to some of the visual changes possibly secondary to diabetic retinopathy. We will await further recommendations from ophthalmology. We have recommended patient to be evaluated by ophthalmology for possible diabetic retinopathy changes producing his visual changes. Patient has been up and ambulating in the hallway today and has shown some improvement overall. He denies any significant dizziness today on ambulation. He is awaiting transfer to inpatient rehab where he will undergo more extensive rehabilitation following his recent heart bypass surgery. He continues to do fairly well terms of his surgical recovery. Patient's dizziness has improved today. His vision still gives him difficulty and has noted we have recommended an ophthalmology consultation. Patient seems to be making good recovery from his recent heart surgery. As noted he is postoperative day #8 today. He has been up and ambulating in the hallway without any difficulty. Patient likely can have follow-up as outpatient with the strike plate attacher regarding his visual changes. According to the patient he may be seen by ophthalmology later tonight. We will await their evaluation. Neurologically the patient remains very much intact. There is no focal deficits on examination today. He is waiting possible transfer to inpatient rehab once a bed is available. We will continue to follow his progress closely during this admission. Objective - Vital Signs Vital signs: Vital Signs Temp 97.1 F L 08/12/17 15:53 Pulse 94 08/12/17 15:53 Resp 20 08/12/17 16:37 BP 118/65 08/12/17 15:53 Pulse Ox 96 08/12/17 15:53 Intake & Output 08/11/17 08/12/17 08/12/17 18:59 06:59 18:59 Intake Total 180 480 Output Total 350 Balance 180 130 Weight 118.2 kg 118 kg Intake: Oral 180 480 Output: Urine 350 Other: Voiding Method Toilet Urinal # Voids 2 ABP, PAP, CO, CI - Last Documented Arterial Blood Pressure 144/66 Pulmonary Artery Pressure 28/17 Cardiac Output 6.5 Cardiac Index 2.8 - Exam Physical examination: PHYSICAL EXAMINATION: Patient is resting comfortably in bed. VITAL SIGNS: Blood pressure is [118/65]. Heart rate is [94]. Respiration is [20] . Temperature is [97.1]. HEENT: Head is atraumatic, neck is supple, there were no carotid bruits. CHEST: Lungs are clear to auscultation and percussion. CARDIAC: S1, S2 normal rate and rhythm. There is no murmur. ABDOMEN: Soft and nontender. Bowel sounds are present. EXTREMITIES: There is no pedal edema. Peripheral pulses are present. Neurological examination: Patient's neurological examination is unchanged from yesterday. Patient has less symptoms of dizziness today on examination. Still complains of some blurred vision. Patient has been ambulating in the hallway with no difficulties with his gait. He has no symptoms of dizziness. - Labs CBC & Chem 7: 08/12/17 05:31 08/12/17 05:31 Labs: Abnormal Lab Results - Last 24 Hours (Table) 08/11/17 08/12/17 08/12/17 Range/Units 21:31 03:35 05:31 RBC 2.98 L (4.30-5.90) m/uL Hgb 9.2 L (13.0-17.5) gm/dL Hct 27.5 L (39.0-53.0) % BUN (9-20) mg/dL Glucose (74-99) mg/dL POC Glucose (mg/dL) 234 H 185 H (75-99) mg/dL 08/12/17 08/12/17 08/12/17 Range/Units 05:31 06:05 11:42 RBC (4.30-5.90) m/uL Hgb (13.0-17.5) gm/dL Hct (39.0-53.0) % BUN 21 H (9-20) mg/dL Glucose 147 H (74-99) mg/dL POC Glucose (mg/dL) 143 H 161 H (75-99) mg/dL 08/12/17 Range/Units 16:36 RBC (4.30-5.90) m/uL Hgb (13.0-17.5) gm/dL Hct (39.0-53.0) % BUN (9-20) mg/dL Glucose (74-99) mg/dL POC Glucose (mg/dL) 153 H (75-99) mg/dL Assessment and Plan (1) Status post coronary artery bypass grafting Status: Acute Code(s): Z95.1 - PRESENCE OF AORTOCORONARY BYPASS GRAFT SNOMED Code(s): 557818335 (2) Blurred vision, bilateral Status: Acute Code(s): H53.8 - OTHER VISUAL DISTURBANCES SNOMED Code(s): 106219251 (3) Dizziness Status: Acute Code(s): R42 - DIZZINESS AND GIDDINESS SNOMED Code(s): 871080368 (4) Hypertension Status: Chronic Code(s): I10 - ESSENTIAL (PRIMARY) HYPERTENSION SNOMED Code( s): 76663484 (5) Morbid obesity with BMI of 40.0-44.9, adult Status: Chronic Code(s): E66.01 - MORBID (SEVERE) OBESITY DUE TO EXCESS CALORIES; Z68.41 - BODY MASS INDEX (BMI) 40.0-44.9, ADULT SNOMED Code(s): 003818232 (6) Diabetes Status: Acute Code(s): E11.9 - TYPE 2 DIABETES MELLITUS WITHOUT COMPLICATIONS SNOMED Code(s): 61750143 Plan: This patient is a 47-year-old male who is postoperative day #9 today following coronary artery bypass grafting. He has been doing quite well neurologically with no recurrent symptoms of dizziness. He has been up and ambulating in the hallway with minimal difficulties. He is awaiting evaluation from ophthalmology regarding blurred vision. Neurologically his exam is nonfocal today. We will continue close neurological follow-up for the patient during this admission. He is awaiting possible inpatient rehab placement once a bed is available. Patient states that he may be discharged to home rather than to inpatient rehab due to insurance reasons. He continues to make slow progress and has been up and ambulating in the hallway. He does notice slight fatigue symptoms today. We are waiting for the recommendations from vascular surgery in regards to his discharge planning. We will continue to follow along with multiple specialists that are seeing this patient. Patient is being considered for discharge home later today. He should follow-up in the outpatient neurology clinic as needed. His overall prognosis at this time remains guarded.
[2017-08-13] MEDS ORDERED: FUROSEMIDE 40 MG TAB PO SCH (09:00)
--- NOTE | 2017-08-16 10:59 | CDI ---
Last Revision, April 2017 Documentation Clarification Form Date: 08/16/17 1055 From: Avani Azul RN, CCDS Admit Date: 07/28/2017 10:40:00 PM Patient Name: Luis A Walters Visit Number: [id number] ATTENTION: The Clinical Documentation Specialists (CDI) and [facility] Coding Staff appreciate your assistance in clarifying documentation. Please respond to the clarification below the line at the bottom and electronically sign. The CDI & [facility] Coding staff will review the response and follow-up if needed. Please note: Queries are made part of the Legal Health Record. If you have any questions, please contact the author of this message via ITS. Dr. Cortez Baron Mild acute renal failure is documented by Medical Management. History/Risk Factors: Pt had a heart cath and CABG this admission, CAD, DM2, A NSTEMI this admission 07/28/17 Patients baseline BUN/CR/GFR: 19/.75/>90 Clinical Indicators: 08/05-08/12 Medical management: "Mild acute renal failure with hyperkalemia." 08/04 Current BUN: 30/40/45/41/33//29 Creatinine: 1.1/1.2/1.2/1/.96/.97/.85 GFR: >90/84/>90status Treatment: IVF: 0.9% @ 20 cc/hr Starting 08/08 Pt received 40 Mg IVP Lasix QD In order to capture the severity of condition, please clarify if the condition signifies: Acute renal failure, Please specify etiology (if known): Acute kidney injury Other, please specify Unable to determine The creatinine was noted to rise S/P CABG x4. Please indicate the significance of the above noted condition in relation to the surgical procedure. An expected post-procedural or post-surgical condition; Integral to the procedure; Inherent to the procedure; An unexpected post-procedural or post-surgical condition related to surgical care; Other, please specify Unable to determine Please continue to document in your progress notes and discharge summary in order to capture severity of illness and risk of mortality. Include clinical findings that support your diagnosis. MTDD
--- NOTE | 2017-08-16 11:17 | CDI ---
Last Revision, April 2017 Documentation Clarification Form Clinical Validation Date: 08/16/17 1112 From: Avani Azul RN, CCDS Admit Date: 07/28/2017 10:40:00 PM Patient Name: Luis A Walters Visit Number: [id number] ATTENTION: The Clinical Documentation Specialists (CDI) and [facility] Coding Staff appreciate your assistance in clarifying documentation. Please respond to the clarification below the line at the bottom and electronically sign. The CDI & [facility] Coding staff will review the response and follow-up if needed. Please note: Queries are made part of the Legal Health Record. If you have any questions, please contact the author of this message via ITS. Dr. Nic Cortez Pseudoaneurysm is documented s/p Cardiac catheritization and requires further specificity. . Patients Admitting Diagnosis: Nstemi Post-Operative Diagnosis: Unstable angina in a patient with known CAD status post prior extensive angioplasty involving circumflex coronary artery and right coronary artery. Procedure performed: "left heart catheterization, coronary angiogram were performed via the right femoral artery using standard Neel catheters." History/Risk Factors: CAD, [place], DM2, thrombocytopenia Clinical Indicators: 07/30 Cardiology: "Right groin puncture site with large area of ecchymosis with a moderate size hematoma, positive bruit, ultrasound positive for pseudoaneurysm. Pseudoaneurysm of the right femoral artery, status post ultrasound-guided injection with complete thrombosis. Treatment: 07/30 ultrasound guided right groin pseudoaneurysm thrombin injection: clinical history: Post cardiac catheter large pseudoaneurysm Consults: Cardiology, Interventional radiology In order to accurately reflect this patients severity of illness, please clarify if the post-operative pseudoaneurysm is: An expected post-procedural or post-surgical condition; Integral to the procedure; Inherent to the procedure; An unexpected post-procedural or post-surgical condition related to surgical care; Other, please specify Unable to determine Please continue to document in your progress notes and discharge summary in order to capture severity of illness and risk of mortality. Include clinical findings that support your diagnosis. MTDD
--- NOTE | 2017-08-20 13:27 | CDI ---
Last Revision, April 2017 Documentation Clarification Form Date: 08/20/17 From: Avani Azul Admit Date: 07/28/2017 10:40:00 PM Patient Name: Luis A Walters Visit Number: [id number] Discharge Date: ATTENTION: The Clinical Documentation Specialists (CDI) and [facility] Coding Staff appreciate your assistance in clarifying documentation. Please respond to the clarification below the line at the bottom and electronically sign. The CDI & [facility] Coding staff will review the response and follow-up if needed. Please note: Queries are made part of the Legal Health Record. If you have any questions, please contact the author of this message via ITS. Dr. Nic Cortez Pseudoanerysm is documented s/p Cardiac catheritization and requires further specificity. . Patients Admitting Diagnosis: Nstemi Post-Operative Diagnosis:Unstable angina in a patient with known CAD status post prior extensive angioplasty involving circumflex coronary artery and right coronary artery. Procedure performed: "left heart catheterization, coronary angiogram were performed via the right femoral artery using standard Neel catheters." History/Risk Factors: CAD, [place], DM2, thrombocytopenia Clinical Indicators: 07/30 Cardiology: "Right groin puncture site with large area of ecchymosis with a moderate size hematoma, positive bruit, ultrasound positive for pseudoaneurysm. pseudoaneurysm of the right femoral artery, status post ultrasound-guided injection with complete thrombosis ." Treatment: 07/30 ULTRASOUND GUIDED RIGHT GROIN PSEUDOANEURYSM THROMBIN INJECTION: CLINICAL HISTORY: Postcardiac catheter large pseudoaneurysm Consults: Cardiology, Interventional radiology In order to accurately reflect this patients severity of illness, please clarify if the post-operative pseudoaneurysm is: An expected post-procedural or post-surgical condition; Integral to the procedure; Inherent to the procedure; An unexpected post-procedural or post-surgical condition related to surgical care; Other, please specify Unable to determine Please continue to document in your progress notes, under the line below and/ or in the discharge summary in order to capture severity of illness and risk of mortality. Include clinical findings that support your diagnosis. Unexpected post procedural condition MTDD
== END 2017-08-12 18:39 | disposition home health service (06) | DRG 234 ==
LOC: EC 20:52 → 6SEL 22:40 → 6ICU 08-02 07:32 → 6SEL 08-06 11:02
PROVIDERS: ADMIT Surgery; ATTEND Surgery
PROC: B2111ZZ Fluoroscopy of Multiple Coronary Arteries using Low Osmolar Contrast (ICD-10-PCS; 2017-07-29)
PROC: 4A023N7 Measurement of Cardiac Sampling and Pressure, Left Heart, Percutaneous Approach (ICD-10-PCS; 2017-07-29)
PROC: 3E053GC Introduction of Other Therapeutic Substance into Peripheral Artery, Percutaneous Approach (ICD-10-PCS; 2017-07-30)
PROC: 021109W Bypass Coronary Artery, Two Arteries from Aorta with Autologous Venous Tissue, Open Approach (ICD-10-PCS; 2017-08-02)
PROC: 06BQ4ZZ Excision of Left Saphenous Vein, Percutaneous Endoscopic Approach (ICD-10-PCS; 2017-08-02)
PROC: 5A1221Z Performance of Cardiac Output, Continuous (ICD-10-PCS; 2017-08-02)
PROC: B246ZZ4 Ultrasonography of Right and Left Heart, Transesophageal (ICD-10-PCS; 2017-08-02)
PROC: 30233N0 Transfusion of Autologous Red Blood Cells into Peripheral Vein, Percutaneous Approach (ICD-10-PCS; 2017-08-02)
PROC: 02100Z9 Bypass Coronary Artery, One Artery from Left Internal Mammary, Open Approach (ICD-10-PCS; principal; 2017-08-02 08:00)
PROC: B54DZZZ Ultrasonography of Bilateral Lower Extremity Veins (ICD-10-PCS; 2017-08-03)
DX: I21.4 Non-ST elevation (NSTEMI) myocardial infarction (principal); F10.231 Alcohol dependence with withdrawal delirium; J90 Pleural effusion, not elsewhere classified; Z68.41 Body mass index [BMI] 40.0-44.9, adult; E11.3299 Type 2 diabetes mellitus with mild nonproliferative diabetic retinopathy without macular edema, unspecified eye; E66.01 Morbid (severe) obesity due to excess calories; E11.36 Type 2 diabetes mellitus with diabetic cataract; D69.6 Thrombocytopenia, unspecified; I97.610 Postprocedural hemorrhage of a circulatory system organ or structure following a cardiac catheterization; D62 Acute posthemorrhagic anemia; J98.11 Atelectasis; E88.81 Metabolic syndrome and other insulin resistance; E87.5 Hyperkalemia; I25.110 Atherosclerotic heart disease of native coronary artery with unstable angina pectoris; I95.2 Hypotension due to drugs; T46.4X5A Adverse effect of angiotensin-converting-enzyme inhibitors, initial encounter; E78.1 Pure hyperglyceridemia; F41.9 Anxiety disorder, unspecified; I34.0 Nonrheumatic mitral (valve) insufficiency; K59.00 Constipation, unspecified; E78.5 Hyperlipidemia, unspecified; I25.2 Old myocardial infarction; I10 Essential (primary) hypertension; G89.29 Other chronic pain; M51.9 Unspecified thoracic, thoracolumbar and lumbosacral intervertebral disc disorder; R42 Dizziness and giddiness; F17.210 Nicotine dependence, cigarettes, uncomplicated; M19.042 Primary osteoarthritis, left hand; M19.041 Primary osteoarthritis, right hand; M19.032 Primary osteoarthritis, left wrist; M19.031 Primary osteoarthritis, right wrist; K21.9 Gastro-esophageal reflux disease without esophagitis; Y90.0 Blood alcohol level of less than 20 mg/100 ml; Z79.84 Long term (current) use of oral hypoglycemic drugs; Z79.82 Long term (current) use of aspirin; Z79.02 Long term (current) use of antithrombotics/antiplatelets; Z79.899 Other long term (current) drug therapy; Z71.6 Tobacco abuse counseling; Z74.1 Need for assistance with personal care; Z95.5 Presence of coronary angioplasty implant and graft; Z87.01 Personal history of pneumonia (recurrent); Z87.442 Personal history of urinary calculi; Z98.1 Arthrodesis status; Z82.49 Family history of ischemic heart disease and other diseases of the circulatory system; Z82.3 Family history of stroke; Z80.9 Family history of malignant neoplasm, unspecified; Y84.0 Cardiac catheterization as the cause of abnormal reaction of the patient, or of later complication, without mention of misadventure at the time of the procedure; Y92.230 Patient room in hospital as the place of occurrence of the external cause
CPT/HCPCS: 36002; 36415; 70450; 71045; 71046; 80048; 80053; 80061; 80074; 80306; 80320; 81001; 82330; 82550; 82553; 82805; 83036; 83690; 83735; 84100; 84443; 84484; 85025; 85027; 85379; 85520; 85610; 85730; 86850; 86870; 86880; 86891; 86900; 86901; 86920; 87086; 93005; 93306; 93458; 93880; 93970; 93975; 94002; 94640; 94760; 96374; 99291

== ENCOUNTER → 2017-08-17 | Outpatient (CLI) | payer SELFPAY ==
[2017-08-17 13:32] LABS: Basophils # (A) 0.1 k/uL (0-0.2); Basophils % (A) 1 %; Eosinophils # (A) 0.3 k/uL (0-0.7); Eosinophils % (A) 3 %; HGB 11.3 gm/dL (13.0-17.5); Hypochromasia Slight; Lymphocytes # (A) 1.6 k/uL (1.0-4.8); Lymphocytes % (A) 15 %; MCH 30.4 pg (25.0-35.0); MCHC 33.2 g/dL (31.0-37.0); MCV 91.6 fL (80.0-100.0); Monocytes # (A) 0.7 k/uL (0-1.0); Monocytes % (A) 7 %; Neutrophils # (A) 7.9 k/uL (1.3-7.7); Neutrophils % (A) 73 %; Platelet Count 363 k/uL (150-450); Poikilocytosis Marked; RBC 3.71 m/uL (4.30-5.90); RDW 14.6 % (11.5-15.5); WBC 10.9 k/uL (3.8-10.6)
[2017-08-17 13:37] LABS: ALT 34 U/L (21-72); AST 18 U/L (17-59); Albumin 3.6 g/dL (3.5-5.0); Alkaline Phosphatase 131 U/L (38-126); Anion Gap 11 mmol/L; Blood Urea Nitrogen 17 mg/dL (9-20); Calcium 9.5 mg/dL (8.4-10.2); Carbon Dioxide 32 mmol/L (22-30); Chloride 100 mmol/L (98-107); Glucose 123 mg/dL (74-99); Potassium 4.1 mmol/L (3.5-5.1); Sodium 143 mmol/L (137-145); Total Bilirubin 0.9 mg/dL (0.2-1.3); Total Protein 6.5 g/dL (6.3-8.2)
== END ==
LOC: LABWHC1 12:25
PROVIDERS: ATTEND Nurse Practitioner Family
DX: Z01.810 Encounter for preprocedural cardiovascular examination (principal)
CPT/HCPCS: 36415; 80053; 85025

== ENCOUNTER → 2018-01-11 | Outpatient (CLI) | payer OTHER ==
--- NOTE | 2018-01-12 08:54 | XR ---
EXAM TYPE: LUMBAR SPINE X RAY SERIES COMPARISON: NONE HISTORY: Lower back pain TECHNIQUE: 4 views are submitted. FINDINGS: Alignment is anatomic. The pedicles are intact. The transverse processes are intact. There is no s pondylolysis or spondylolisthesis. Postsurgical changes at L4-L5. Hypertrophic spurring at levels L3 -S1. IMPRESSION: 1. Postoperative changes.
== END ==
LOC: RADXRMAIN 18:09
PROVIDERS: ATTEND Family Medicine
DX: Z53.9 Procedure and treatment not carried out, unspecified reason (principal)
CPT/HCPCS: 72110

== ENCOUNTER → 2018-03-11 | Outpatient (CLI) | payer OTHER ==
[2018-03-11 15:30] LABS: Anion Gap 8.3 mmol/L (4.00-12.00); Calcium 8.8 mg/dL (8.7-10.3); Carbon Dioxide 28.7 mmol/L (21.6-31.8); Potassium 4.6 mmol/L (3.5-5.5)
== END | disposition home or self-care (01) ==
LOC: LABWHC1 10:10
PROVIDERS: ATTEND Nurse Practitioner Adult Health
DX: I10 Essential (primary) hypertension (principal)
CPT/HCPCS: 36415; 80048

== ENCOUNTER 2018-06-04 21:14 | Observation (INO) | payer OTHER ==
[2018-06-04] MEDS ORDERED: ASPIRIN 81 MG PO STA (22:28)
--- NOTE | 2018-06-04 22:37 | ED ---
Chest Pain HPI - General Chief Complaint: Chest Pain Stated Complaint: chest pain Time Seen by Provider: 06/04/18 22:12 Source: patient Mode of arrival: wheelchair Limitations: no limitations - History of Present Illness Initial Comments: This patient is a 48-year-old man who presents to be evaluated for palpitations and chest pains. He states that he was in his usual state of health until this morning around 10 when he felt like his heart was occasionally skipping beats. He states that this was intermittent throughout the day. He also then noticed that he was occasionally having substernal, sharp, intermittent chest pains. The pains would last for just a few seconds at a time. He did not notice anything that seemed to make the pains get better or worse or bring them on. He was not having any associated anginal symptoms, no dyspnea, diaphoresis, nausea or vomiting. MD Complaint: chest pain -: hour(s) Onset: during rest Pain Location: substernal Pain Radiation: none Severity: moderate Quality: sharp Consistency: intermittent Improves With: nothing Worsens With: nothing Other Symptoms: palpitations Treatments Prior to Arrival: none - Related Data Home Medications Medication Instructions Recorded Confirmed Furosemide [Lasix] 20 mg PO DAILY 06/05/18 06/05/18 Insulin Aspart [NovoLOG Flexpen] 20 units SQ TID-W/MEALS 06/05/18 06/05/18 Insulin Glargine [Lantus] 50 units SQ HS 06/05/18 06/05/18 Meclizine [Antivert] 25 mg PO TID 06/05/18 06/05/18 Potassium Chloride [K-Tab ER] 10 meq PO DAILY 06/05/18 06/05/18 Previous Rx's Medication Instructions Recorded Aspirin 325 mg PO DAILY #30 tab 08/12/17 Atorvastatin [Lipitor] 80 mg PO HS #30 tab 08/12/17 Clopidogrel [Plavix] 75 mg PO DAILY #30 tablet 08/12/17 HYDROcodone/APAP 10-325MG [[place] 1 - 2 tab PO Q6H PRN #30 tab 08/12/17 10-325] Metoprolol Tartrate [Lopressor] 100 mg PO BID #120 tab 08/12/17 Sertraline [Zoloft] 50 mg PO DAILY #30 tab 08/12/17 Allergies Allergy/AdvReac Type Severity Reaction Status Date / Time No Known Allergies Allergy Verified 06/04/18 21:55 Review of Systems ROS Statement: Those systems with pertinent positive or pertinent negative responses have been documented in the HPI. ROS Other: All systems not noted in ROS Statement are negative. Constitutional: Denies: fever, chills, weakness Respiratory: Denies: cough, dyspnea, wheezes Cardiovascular: Reports: as per HPI, chest pain, palpitations. Denies: dyspnea on exertion, orthopnea, edema, syncope Gastrointestinal: Denies: abdominal pain, nausea, vomiting Genitourinary: Denies: dysuria Musculoskeletal: Denies: back pain Skin: Denies: rash Neurological: Denies: headache, weakness, numbness EKG Findings - EKG Results: EKG: interpreted by ERMD, sinus rhythm (Rate 81 bpm) - Blocks, [place], Hypertrophy, ST Abn: Chamber hypertrophy or enlargement: left ventricular hypertrophy or enlargement (LVE) Repolarization changes or abnormalities: ST or T wave suggestive of ischemia (T inversions in leads 1 and aVL.) - CT, Pacemaker, Normal: Myocardial infarction: inferior CT (old age indeterminate) (Q waves in lead 3 and aVF, suggestive of possible old inferior infarct.) Past Medical History Past Medical History: Coronary Artery Disease (CAD), Diabetes Mellitus, GERD/ Reflux, Hyperlipidemia, Hypertension, Myocardial Infarction (CT), Osteoarthritis (OA), Pneumonia, Renal Disease Additional Past Medical History / Comment(s): NIDDM type II, chronic lumbar pain , colitis, athrtitis bilateral hands/wrists, nephrolithiasis. Last Myocardial Infarction Date:: 11/02/16 History of Any Multi-Drug Resistant Organisms: None Reported Past Surgical History: Heart Catheterization With Stent, Orthopedic Surgery Additional Past Surgical History / Comment(s): 11/02/16 PCI with stent to RCA, kidney stone basketing, failed L4-L5 fusions x 2, colonoscopy. Past Anesthesia/Blood Transfusion Reactions: No Reported Reaction Date of Last Stent Placement:: 11/02/16 Past Psychological History: No Psychological Hx Reported Smoking Status: Former smoker Past Alcohol Use History: Daily Past Drug Use History: None Reported - Past Family History Father Family Medical History: Congestive Heart Failure (CHF), Coronary Artery Disease (CAD), CVA/TIA, Myocardial Infarction (CT) Additional Family Medical History / Comment(s): Father at the age of 63 yrs. Pt doesn't recall age of father's CT. Mother Family Medical History: Cancer Additional Family Medical History / Comment(s): Mother had multiple cancers. She is living. General Exam Limitations: no limitations General appearance: alert, in no apparent distress Head exam: Present: atraumatic, normocephalic Eye exam: Present: normal appearance Respiratory exam: Present: normal lung sounds bilaterally, chest wall tenderness , other (The patient has tenderness at the lower sternum and does feel like there may be a tissue defect in the area of the patient's old sternotomy.). Absent: respiratory distress, wheezes, rales, rhonchi, stridor Cardiovascular Exam: Present: regular rate, normal rhythm, normal heart sounds. Absent: systolic murmur, diastolic murmur, rubs, gallop GI/Abdominal exam: Present: soft. Absent: distended, tenderness, guarding, rebound, rigid, mass Extremities exam: Present: normal inspection, normal capillary refill. Absent: pedal edema, calf tenderness Back exam: Present: normal inspection. Absent: CVA tenderness (R), CVA tenderness (L) Neurological exam: Present: alert Skin exam: Present: warm, dry, intact, normal color. Absent: rash Course Vital Signs 06/04/18 06/05/18 21:52 03:02 Temperature 98.3 F Pulse Rate 83 92 Respiratory 17 18 Rate Blood Pressure 148/94 148/91 O2 Sat by Pulse 96 98 Oximetry Chest Pain MDM - MDM This patient is 48-year-old man presenting with chest pain that has mixture of typical and atypical features. Eyes initial workup is negative. Patient be admitted for serial cardiac enzymes and telemetry monitoring. Disposition Clinical Impression: Chest pain Disposition: ADMITTED IP TO THIS HOSP Condition: Good Is patient prescribed a controlled substance at d/c from ED?: No
--- NOTE | 2018-06-04 23:12 | XR ---
EXAMINATION TYPE: XR chest 1V portable DATE OF EXAM: 06/04/2018 COMPARISON: 08/12/2017 HISTORY: Chest pain TECHNIQUE: Single frontal view of the chest is obtained. FINDINGS: Heart is enlarged. There is no heart failure. There are sternal wires. Costophrenic angles are clear. There are chest leads. IMPRESSION: No active cardiopulmonary disease. Mild cardiomegaly. There is clearing of the right ple ural effusion compared to old exam.
[2018-06-05 00:23] LABS: Basophils # (A) 0.1 k/uL (0-0.2); Basophils % (A) 1 %; Eosinophils # (A) 0.3 k/uL (0-0.7); Eosinophils % (A) 3 %; HCT 46.3 % (39.0-53.0); HGB 15.4 gm/dL (13.0-17.5); Lymphocytes # (A) 1.7 k/uL (1.0-4.8); Lymphocytes % (A) 21 %; MCH 29.9 pg (25.0-35.0); MCHC 33.4 g/dL (31.0-37.0); MCV 89.5 fL (80.0-100.0); Mean Platelet Volume 7.6; Monocytes # (A) 0.8 k/uL (0-1.0); Monocytes % (A) 10 %; Neutrophils % (A) 62 %; Platelet Count 208 k/uL (150-450); RBC 5.17 m/uL (4.30-5.90); RDW 14.9 % (11.5-15.5); WBC 8.1 k/uL (3.8-10.6)
[2018-06-05 00:44] LABS: ALT 30 U/L (21-72); AST 37 U/L (17-59); Albumin 3.2 g/dL (3.5-5.0); Alkaline Phosphatase 104 U/L (38-126); Anion Gap 7 mmol/L; Blood Urea Nitrogen 37 mg/dL (9-20); Carbon Dioxide 24 mmol/L (22-30); Chloride 103 mmol/L (98-107); Glucose 398 mg/dL (74-99); Magnesium 1.7 mg/dL (1.6-2.3); Sodium 134 mmol/L (137-145); Total Bilirubin 1.1 mg/dL (0.2-1.3); Total Protein 6.2 g/dL (6.3-8.2)
[2018-06-05 00:49] LABS: Potassium 5.2 mmol/L (3.5-5.1)
[2018-06-05 01:01] LABS: INR 0.9 (<1.2); Partial Thromboplastin Time 23.8 sec (22.0-30.0); Prothrombin Time 9.5 sec (9.0-12.0)
[2018-06-05 01:14] LABS: Creatine Kinase MB 0.8 ng/mL (0.0-2.4); Troponin I 0.022 ng/mL (0.000-0.034)
[2018-06-05] MEDS ORDERED: INSULIN REGULAR 100 UNIT/ML VIAL SQ STA (02:28)
[2018-06-05] MEDS ORDERED: NITROGLYCERIN SL TABS 0.4 MG TAB SUBLINGUAL PRN (02:32)
[2018-06-05] MEDS ORDERED: HYDROcodone/APAP 10-325MG 1 EACH TAB PO PRN (02:34)
[2018-06-05] MEDS ORDERED: METOCLOPRAMIDE 5 MG/ML 2 ML VIAL IVP STA (02:37)
[2018-06-05 04:12] VITALS: BMI 41.3
[2018-06-05 04:36] VITALS: RESP 18
[2018-06-05 06:42] LABS: Glucose,Whole Blood 321 mg/dL (75-99)
[2018-06-05 08:31] LABS: Creatine Kinase 84 U/L (55-170)
[2018-06-05 08:44] LABS: Creatine Kinase MB 0.6 ng/mL (0.0-2.4); Troponin I <0.012 ng/mL (0.000-0.034)
[2018-06-05] MEDS ORDERED: FUROSEMIDE 40 MG TAB PO SCH (09:00)
[2018-06-05] MEDS ORDERED: FAMOTIDINE 20 MG TAB PO SCH (09:00)
[2018-06-05] MEDS ORDERED: MECLIZINE 12.5 MG TAB PO SCH (09:00)
[2018-06-05] MEDS ORDERED: CLOPIDOGREL 75 MG TAB PO SCH (09:00)
[2018-06-05] MEDS ORDERED: SERTRALINE 50 MG TAB PO SCH (09:00)
[2018-06-05] MEDS ORDERED: METOPROLOL TARTRATE 50 MG TAB PO SCH ×2 (09:00→16:00)
--- NOTE | 2018-06-05 09:05 | P.CRDCN ---
History of Present Illness Consult date: 06/05/18 Chief complaint: Chest discomfort/heart racing History of present illness: This is a pleasant 48-year-old gentleman who I follow in the office as an outpatient was history of coronary artery disease, diabetes, hypertension, dyslipidemia, presented to the hospital complaining of heart racing and chest discomfort. In July 2017, he underwent CABG 3 where he received OMALLEY to LAD, SVG to diagonal, and SVG to RCA. He was in his usual state of health until yesterday when he started experiencing episodes of heart racing and fluttering without any associated symptoms of dizziness or lightheadedness or syncope. Beside that he was experiencing chest discomfort as a sharp kind of discomfort, on the left side of the chest, without any radiation to the arm or neck or shoulders, and without any associated symptoms. Because of these symptoms he decided to come to the emergency room. The EKG showed sinus rhythm without any acute or ischemic changes. The cardiac enzymes were checked and came in to be unremarkable. The chest x-ray did not show any acute abnormalities. During his hospitalization, I noticed that he is tachycardic and hypertensive. I am going to increase the dose of metoprolol on him. Past Medical History Past Medical History: Coronary Artery Disease (CAD), Diabetes Mellitus, GERD/ Reflux, Hyperlipidemia, Hypertension, Myocardial Infarction (HI), Osteoarthritis (OA), Pneumonia, Renal Disease Additional Past Medical History / Comment(s): NIDDM type II, chronic lumbar pain , colitis, athrtitis bilateral hands/wrists, nephrolithiasis. Last Myocardial Infarction Date:: 11/02/16 History of Any Multi-Drug Resistant Organisms: None Reported Past Surgical History: Coronary Bypass/CABG, Heart Catheterization With Stent, Orthopedic Surgery Additional Past Surgical History / Comment(s): 11/02/16 PCI with stent to RCA, stent to circ, kidney stone basketing, failed L4-L5 fusions x 2, colonoscopy. 3 vessel CABG 08/02/2017 Past Anesthesia/Blood Transfusion Reactions: No Reported Reaction Date of Last Stent Placement:: 11/02/16 Past Psychological History: No Psychological Hx Reported Additional Psychological History / Comment(s): Pt resides with his spouse. He is independent. He has a glucometer but no lancets or strips. Smoking Status: Former smoker Past Alcohol Use History: None Reported Additional Past Alcohol Use History / Comment(s): Pt started smoking at the age of 17 yrs (1986) and quit in 2018 after open heart. pt reports no longer drinking daily after CABG Past Drug Use History: None Reported - Past Family History Father Family Medical History: Congestive Heart Failure (CHF), Coronary Artery Disease (CAD), CVA/TIA, Myocardial Infarction (HI) Additional Family Medical History / Comment(s): Father at the age of 63 yrs. Pt doesn't recall age of father's HI. Mother Family Medical History: Cancer Additional Family Medical History / Comment(s): Mother had multiple cancers. She is living. Medications and Allergies Home Medications Medication Instructions Recorded Confirmed Type Aspirin 325 mg PO DAILY #30 tab 08/12/17 06/05/18 Rx Atorvastatin [Lipitor] 80 mg PO HS #30 tab 08/12/17 06/05/18 Rx Clopidogrel [Plavix] 75 mg PO DAILY #30 tablet 08/12/17 06/05/18 Rx HYDROcodone/APAP 10-325MG [[place] 1 - 2 tab PO Q6H PRN #30 tab 08/12/17 06/05/18 Rx 10-325] Metoprolol Tartrate [Lopressor] 100 mg PO BID #120 tab 08/12/17 06/05/18 Rx Sertraline [Zoloft] 50 mg PO DAILY #30 tab 08/12/17 06/05/18 Rx Furosemide [Lasix] 20 mg PO DAILY 06/05/18 06/05/18 History Insulin Aspart [NovoLOG Flexpen] 20 units SQ TID-W/MEALS 06/05/18 06/05/18 History Insulin Glargine [Lantus] 50 units SQ HS 06/05/18 06/05/18 History Meclizine [Antivert] 25 mg PO TID 06/05/18 06/05/18 History Potassium Chloride [K-Tab ER] 10 meq PO DAILY 06/05/18 06/05/18 History Allergies Allergy/AdvReac Type Severity Reaction Status Date / Time No Known Allergies Allergy Verified 06/04/18 21:55 Physical Exam Vitals: Vital Signs Temp Pulse Pulse Resp BP BP Pulse Ox 06/05/18 07:20 97.5 F L 90 18 156/96 94 L 06/05/18 04:00 97.5 F L 96 18 158/75 95 06/05/18 03:02 92 18 148/91 98 06/04/18 21:52 98.3 F 83 17 148/94 96 Intake and Output 06/04/18 06/05/18 06/05/18 22:59 06:59 14:59 Other: Voiding Method Toilet # Voids 2 Weight 127.006 kg - Constitutional General appearance: no acute distress - Respiratory Respiratory: bilateral: CTA - Cardiovascular Rhythm: regular Heart sounds: normal: S1, S2 Results 06/05/18 00:06 06/05/18 00:06 Cardiac Enzymes 06/05/18 06/05/18 06/05/18 Range/Units 00:06 00:06 06:58 AST 37 (17-59) U/L CK-MB (CK-2) 0.8 0.6 (0.0-2.4) ng/mL Troponin I 0.022 <0.012 (0.000-0.034) ng/mL Coagulation 06/05/18 Range/Units 00:06 PT 9.5 (9.0-12.0) sec APTT 23.8 (22.0-30.0) sec CBC 06/05/18 Range/Units 00:06 WBC 8.1 (3.8-10.6) k/uL RBC 5.17 (4.30-5.90) m/uL Hgb 15.4 (13.0-17.5) gm/dL Hct 46.3 (39.0-53.0) % Plt Count 208 (150-450) k/uL Comprehensive Metabolic Panel 06/05/18 Range/Units 00:06 Sodium 134 L (137-145) mmol/L Potassium 5.2 H (3.5-5.1) mmol/L Chloride 103 (98-107) mmol/L Carbon Dioxide 24 (22-30) mmol/L BUN 37 H (9-20) mg/dL Creatinine 1.03 (0.66-1.25) mg/dL Glucose 398 H (74-99) mg/dL Calcium 9.0 (8.4-10.2) mg/dL AST 37 (17-59) U/L ALT 30 (21-72) U/L Alkaline Phosphatase 104 (38-126) U/L Total Protein 6.2 L (6.3-8.2) g/dL Albumin 3.2 L (3.5-5.0) g/dL Current Medications Generic Name Dose Route Start Last Admin Trade Name Freq PRN Reason Stop Dose Admin Hydrocodone Bitart/Acetaminophen 1 each 06/05/18 02:34 [place] 10 PO Q6H PRN Pain Aspirin 325 mg 06/06/18 09:00 Aspirin PO DAILY [facility] Atorvastatin Calcium 80 mg 06/05/18 21:00 Lipitor PO HS [facility] Clopidogrel Bisulfate 75 mg 06/05/18 09:00 Plavix PO DAILY [facility] Famotidine 20 mg 06/05/18 09:00 Pepcid PO BID ANDRE Furosemide 40 mg 06/05/18 09:00 Lasix PO DAILY [facility] Insulin Aspart 0 unit 06/05/18 07:30 Novolog SQ ACHS ANDRE Protocol Insulin Aspart 10 unit 06/05/18 07:30 Novolog SQ AC-TID [facility] Insulin Detemir 40 unit 06/05/18 21:00 Levemir SQ HS [facility] Meclizine HCl 12.5 mg 06/05/18 09:00 Antivert PO BID [facility] Metoprolol Tartrate 100 mg 06/05/18 09:00 Lopressor PO BID [facility] Multivitamins 1 each 06/05/18 12:00 Theragran PO DAILY@1200 [facility] Nitroglycerin 0.4 mg 06/05/18 02:32 Nitrostat SUBLINGUAL Q5M PRN Chest Pain Sertraline HCl 50 mg 06/05/18 09:00 Zoloft PO DAILY [facility] Thiamine HCl 100 mg 06/05/18 12:00 Vitamin B-1 PO BID@1200,1700 [facility] Intake and Output 06/04/18 06/05/18 06/05/18 22:59 06:59 14:59 Other: Voiding Method Toilet # Voids 2 Weight 127.006 kg 06/05/18 00:06 06/05/18 00:06 Assessment and Plan Assessment: Assessment #1 atypical chest discomfort #2 intermittent episodes of heart racing and fluttering #3 CAD and status post CABG as described above #4 multiple comorbid conditions Plan #1 the patient was ruled out for acute coronary event #2 cardiac arrhythmia in the term of atrial fibrillation to be ruled out as an outpatient. Probably through event monitor #3 I will increase the dose of metoprolol #4 from the cardiovascular standpoint of view, the patient can be discharged home. Thank you for allowing us participate in his care
[2018-06-05] MEDS: INSULIN ASPART 100 UNIT/ML 1 ML 10 ML VIAL SQ SCH ×6 (09:41→17:55)
[2018-06-05] MEDS: METOPROLOL TARTRATE 25 MG TAB PO SCH ×2 (09:51→16:36)
[2018-06-05 12:00] LABS: Glucose,Whole Blood 280 mg/dL (75-99)
[2018-06-05] MEDS ORDERED: MULTIVITAMINS, THERA 1 EACH TAB PO SCH (12:00)
[2018-06-05 12:08] VITALS: BP 155/96; PULSE 73; TEMP 97.7
[2018-06-05] MEDS: THIAMINE 100 MG TAB PO SCH ×2 (12:36→17:56)
[2018-06-05 12:41] LABS: Creatine Kinase 73 U/L (55-170)
[2018-06-05 12:55] LABS: Creatine Kinase MB 0.5 ng/mL (0.0-2.4); Troponin I <0.012 ng/mL (0.000-0.034)
--- NOTE | 2018-06-05 15:54 | P.HPIM ---
History of Present Illness H&P Date: 06/05/18 Chief Complaint: Chest pain Patient is a 48-year-old male with a known history of coronary artery disease with history of 5 vessel bypass graft, diabetes type 2, hypertension, hyperlipidemia, history of AL, osteoarthritis and chronic lumbar pain as well as nephrolithiasis came to ER with complaints of chest pain mid retrosternal, denied any left arm pain. Patient started early yesterday. Sharp pain, Lasting for a few minutes. Patient has been having this pain through the day and had nausea around 3 AM. Patient felt dizzy as well. No fever no chills. No headache. Patient came to the hospital for evaluation. EKG showed normal sinus rhythm Cardiac enzymes troponin 3 negative chest x-ray showed no acute cardio pulmonary process Patient did have coronary artery bypass graft 5 vessel in July 2017 Review of Systems Constitutional: Patient denies any fever or chills . No generalized weakness or weight loss. Abdomen: Patient denied nausea vomiting and diarrhea and abdominal pain. Cardiovascular: Chest pain. No radiation. Associated with dizziness. No palpitations.. Respiratory: patient denied any cough is from production. No shortness of breath Neurologic: Patient denied any numbness or tingling headache. Musculoskeletal: Patient denies any complaints of joint swelling or deformity. Skin: Negative Psychiatric: Negative Endocrine: No heat or cold intolerance. No recent weight gain. Genitourinary: No dysuria or hematuria. All other 14 point ROS negative except the above Past Medical History Past Medical History: Coronary Artery Disease (CAD), Diabetes Mellitus, GERD/ Reflux, Hyperlipidemia, Hypertension, Myocardial Infarction (AL), Osteoarthritis (OA), Pneumonia, Renal Disease Additional Past Medical History / Comment(s): NIDDM type II, chronic lumbar pain , colitis, athrtitis bilateral hands/wrists, nephrolithiasis. Last Myocardial Infarction Date:: 11/02/16 History of Any Multi-Drug Resistant Organisms: None Reported Past Surgical History: Coronary Bypass/CABG, Heart Catheterization With Stent, Orthopedic Surgery Additional Past Surgical History / Comment(s): 11/02/16 PCI with stent to RCA, stent to circ, kidney stone basketing, failed L4-L5 fusions x 2, colonoscopy. 3 vessel CABG 08/02/2017 Past Anesthesia/Blood Transfusion Reactions: No Reported Reaction Date of Last Stent Placement:: 11/02/16 Past Psychological History: No Psychological Hx Reported Additional Psychological History / Comment(s): Pt resides with his spouse. He is independent. He has a glucometer but no lancets or strips. Smoking Status: Former smoker Past Alcohol Use History: None Reported Additional Past Alcohol Use History / Comment(s): Pt started smoking at the age of 17 yrs (1986) and quit in 2018 after open heart. pt reports no longer drinking daily after CABG Past Drug Use History: None Reported - Past Family History Father Family Medical History: Congestive Heart Failure (CHF), Coronary Artery Disease (CAD), CVA/TIA, Myocardial Infarction (AL) Additional Family Medical History / Comment(s): Father at the age of 63 yrs. Pt doesn't recall age of father's AL. Mother Family Medical History: Cancer Additional Family Medical History / Comment(s): Mother had multiple cancers. She is living. Medications and Allergies Home Medications Medication Instructions Recorded Confirmed Type Aspirin 325 mg PO DAILY #30 tab 08/12/17 06/05/18 Rx Atorvastatin [Lipitor] 80 mg PO HS #30 tab 08/12/17 06/05/18 Rx Clopidogrel [Plavix] 75 mg PO DAILY #30 tablet 08/12/17 06/05/18 Rx HYDROcodone/APAP 10-325MG [[place] 1 - 2 tab PO Q6H PRN #30 tab 08/12/17 06/05/18 Rx 10-325] Furosemide [Lasix] 20 mg PO DAILY 06/05/18 06/05/18 History Insulin Aspart [NovoLOG Flexpen] 25 units SQ TID-W/MEALS 06/05/18 06/05/18 History Insulin Glargine [Lantus] 50 units SQ HS 06/05/18 06/05/18 History Meclizine [Antivert] 25 mg PO TID 06/05/18 06/05/18 History Metoprolol Tartrate [Lopressor] 100 mg PO BID 06/05/18 06/05/18 History Potassium Chloride [K-Tab ER] 10 meq PO DAILY 06/05/18 06/05/18 History Sertraline [Zoloft] 50 mg PO HS 06/05/18 06/05/18 History Allergies Allergy/AdvReac Type Severity Reaction Status Date / Time No Known Allergies Allergy Verified 06/05/18 09:37 Physical Exam Vitals: Vital Signs Temp Pulse Pulse Resp BP BP Pulse Ox 06/05/18 12:00 73 18 06/05/18 11:45 97.7 F 73 18 155/96 97 06/05/18 08:00 90 18 06/05/18 07:20 97.5 F L 90 18 156/96 94 L 06/05/18 04:00 97.5 F L 96 18 158/75 95 06/05/18 03:02 92 18 148/91 98 06/04/18 21:52 98.3 F 83 17 148/94 96 Intake and Output 06/05/18 06/05/18 06/05/18 06:59 14:59 22:59 Intake Total 440 Balance 440 Intake: Oral 240 Other 200 Other: Voiding Method Toilet Toilet # Voids 2 PHYSICAL EXAMINATION: Patient is lying in the bed comfortably, no acute distress, awake alert and oriented.. HEENT: Normocephalic. Neck is supple. Pupils reactive. Nostrils clear. Oral cavity is moist. Ears reveal no drainage. Neck reveals no JVD, carotid bruits, or thyromegaly. CHEST EXAMINATION: Trachea is central. Symmetrical expansion. Lung taveras clear to auscultation and percussion. CARDIAC: Normal S1, S2 with no gallops. No murmurs ABDOMEN: Soft. Bowel sounds normal. No organomegaly. No abdominal bruits. Extremities: reveal no edema. No clubbing or cyanosis Neurologically awake, alert, oriented x3 with well-coordinated movements. No focal deficits noted Skin: No rash or skin lesions. Psychiatric: Coperative. Nonsuicidal Musculoskeletal: No joint swelling or deformity. Normal range of motion. Results CBC & Chem 7: 06/05/18 00:06 06/05/18 00:06 Labs: Abnormal Lab Results - Last 24 Hours (Table) 06/05/18 06/05/18 06/05/18 Range/Units 00:06 06:40 11:57 Sodium 134 L (137-145) mmol/L Potassium 5.2 H (3.5-5.1) mmol/L BUN 37 H (9-20) mg/dL Glucose 398 H (74-99) mg/dL POC Glucose (mg/dL) 321 H 280 H (75-99) mg/dL Total Protein 6.2 L (6.3-8.2) g/dL Albumin 3.2 L (3.5-5.0) g/dL Thrombosis Risk Factor Assmnt - DVT/VTE Prophylaxis DVT/VTE Prophylaxis: Pharmacologic Prophylaxis ordered - Choose All That Apply Each Factor Represents 1 point: Age 41-60 years, Obesity (BMI >25) Thrombosis Risk Factor Assessment Total Risk Factor Score: 2 Thrombosis Risk Factor Assessment Level: Low Risk Assessment and Plan Assessment: Atypical chest pain with a history of known coronary artery disease. Rule out ACS Diabetes type 2 GERD Hyperlipidemia Hypertension History of [place] Coronary artery disease with history of CABG in July 2017 Nephrolithiasis Chronic lower lumbar pain History of failed L4 to L5 fusion surgery 2 Previous history of smoking History of alcohol abuse area. Did quit currently. DVT prophylaxis Morbid obesity with BMI 41.3 Plan: Patient will be continued on telemetry monitoring. Due to complaints of heart racing up fast, beta kayla dose has been increased. Cardiology recommends no further workup at this time.. Current with home medications and follow closely. Further conditions based on the clinical course. Time with Patient: Greater than 30
[2018-06-05] MEDS ORDERED: INSULIN DETEMIR 100 UNIT/ML 10 ML VIAL SQ SCH (21:00)
[2018-06-05] MEDS ORDERED: ATORVASTATIN 80 MG TAB PO SCH (21:00)
[2018-06-06] MEDS ORDERED: ASPIRIN 325 MG TAB PO SCH (09:00)
[2018-06-06 10:12] LABS: Hemoglobin A1C 11.9 % (4.0-6.0)
== END 2018-06-05 18:06 | disposition home or self-care (01) ==
LOC: EC 21:14 → 1SOBS 06-05 02:38
PROVIDERS: ADMIT Hospitalist; ATTEND Hospitalist
DX: R07.89 Other chest pain (principal); E86.0 Dehydration; E87.5 Hyperkalemia; E11.65 Type 2 diabetes mellitus with hyperglycemia; I25.10 Atherosclerotic heart disease of native coronary artery without angina pectoris; I49.9 Cardiac arrhythmia, unspecified; R94.4 Abnormal results of kidney function studies; K21.9 Gastro-esophageal reflux disease without esophagitis; I10 Essential (primary) hypertension; E78.5 Hyperlipidemia, unspecified; M54.5 Low back pain; G89.29 Other chronic pain; M19.032 Primary osteoarthritis, left wrist; M19.031 Primary osteoarthritis, right wrist; M19.042 Primary osteoarthritis, left hand; M19.041 Primary osteoarthritis, right hand; I49.8 Other specified cardiac arrhythmias; Z68.41 Body mass index [BMI] 40.0-44.9, adult; E66.01 Morbid (severe) obesity due to excess calories; Z79.4 Long term (current) use of insulin; Z79.82 Long term (current) use of aspirin; Z79.02 Long term (current) use of antithrombotics/antiplatelets; Z79.899 Other long term (current) drug therapy; Z87.01 Personal history of pneumonia (recurrent); Z95.1 Presence of aortocoronary bypass graft; I25.2 Old myocardial infarction; Z87.19 Personal history of other diseases of the digestive system; Z87.442 Personal history of urinary calculi; Z98.1 Arthrodesis status; Z95.5 Presence of coronary angioplasty implant and graft; Z87.891 Personal history of nicotine dependence; Z82.49 Family history of ischemic heart disease and other diseases of the circulatory system; Z82.3 Family history of stroke; Z80.9 Family history of malignant neoplasm, unspecified
CPT/HCPCS: 96374; 99285; 36415; 93005; 80053; 82550; 82553; 83735; 84484; 85025; 85610; 85730; 83036; 71045; G0378; J2765

== ENCOUNTER → 2018-08-15 | Outpatient (CLI) | payer OTHER ==
[2018-08-15 11:05] LABS: Anisocytosis Slight; HCT 42.6 % (39.0-53.0); HGB 14.7 gm/dL (13.0-17.5); MCH 30.9 pg (25.0-35.0); MCHC 34.5 g/dL (31.0-37.0); MCV 89.6 fL (80.0-100.0); Mean Platelet Volume 8.6; Platelet Count 150 k/uL (150-450); RBC 4.75 m/uL (4.30-5.90); RDW 16.3 % (11.5-15.5); WBC 6.9 k/uL (3.8-10.6)
[2018-08-15 16:33] LABS: Potassium 4.7 mmol/L (3.5-5.5)
== END | disposition home or self-care (01) ==
LOC: LABWHC1 09:17
PROVIDERS: ATTEND Internal Medicine Interventional Cardiology
DX: Z01.812 Encounter for preprocedural laboratory examination (principal); I25.10 Atherosclerotic heart disease of native coronary artery without angina pectoris; R07.9 Chest pain, unspecified
CPT/HCPCS: 36415; 80051; 82565; 84520; 85027

== ENCOUNTER 2018-08-16 06:32 | Day surgery (SDC) | payer OTHER ==
[~2018-08-16 06:32] MED LIST: ALPRAZolam 0.25 MG TAB PO PRN; ALPRAZolam 0.5 MG TAB PO PRN; ASPIRIN 325 MG TAB PO STA; ATORVASTATIN 80 MG TAB PO STA; NITROGLYCERIN SL TABS 0.4 MG TAB SUBLINGUAL PRN; SODIUM CHLORIDE 0.9% 1,000 ML in EMPTY BAG 1 BAG IV ONE
[2018-08-16] MEDS: SODIUM CHLORIDE 0.9% 1,000 ML IV ONE ×2 (07:10→14:55)
[2018-08-16] MEDS ORDERED: INSULIN ASPART (NovoLOG) 100 UNIT/ML VIAL SQ ONE (07:17)
[2018-08-16 07:22] LABS: Glucose,Whole Blood 419 mg/dL (75-99)
[2018-08-16] MEDS ORDERED: SODIUM CHLORIDE 0.9% 1,000 ML IV ONE (07:25)
[2018-08-16] MEDS ORDERED: LIDOCAINE 1% INJ 10MG/ML (20 ML MDV) ONE (07:33)
[2018-08-16] MEDS ORDERED: MIDAZOLAM 2 MG/2 ML VIAL IV ONE ×2 (07:50→08:19)
[2018-08-16] MEDS ORDERED: LIDOCAINE 1% INJ 10MG/ML (20 ML MDV) SQ ONE (07:54)
[2018-08-16] MEDS ORDERED: IOPAMIDOL-370 100ML BTL INJ ONE ×2 (08:15→08:37)
[2018-08-16] MEDS ORDERED: fentaNYL (PF) 50 MCG/ML 2 ML AMP ONE (08:17)
[2018-08-16] MEDS ORDERED: fentaNYL (PF) 50 MCG/ML 2 ML AMP IV ONE (08:19)
[2018-08-16] MEDS ORDERED: BIVALIRUDIN BOLUS 250 MG/50 ML IV ONE (08:25)
[2018-08-16] MEDS ORDERED: BIVALIRUDIN 250 MG in SODIUM CHLORIDE 0.9% 50 ML IV ONE (08:26)
[2018-08-16] MEDS ORDERED: HYDROmorphone 2 MG/ML 1 ML SYRINGE IV ONE (08:34)
[2018-08-16] MEDS ORDERED: NITROGLYCERIN 1000MCG/10ML SYRINGE INTRACORON ONE (08:35)
[2018-08-16] MEDS ORDERED: CLOPIDOGREL 75 MG TAB ONE (08:35)
[2018-08-16] MEDS ORDERED: CLOPIDOGREL 75 MG TAB PO ONE (08:36)
[2018-08-16] MEDS ORDERED: IOPAMIDOL-250 100ML BTL INTRAARTER ONE (08:37)
[2018-08-16] MEDS ORDERED: ATROPINE SULFATE 0.1 MG/ML 10ML SYRINGE IV PRN (08:49)
[2018-08-16] MEDS ORDERED: MAG HYDROX/AL HYDROX/SIMETH 30 ML CUP PO PRN (08:49)
[2018-08-16] MEDS ORDERED: NITROGLYCERIN SL TABS 0.4 MG TAB SUBLINGUAL PRN (08:49)
[2018-08-16] MEDS ORDERED: RX INFO: IV CONTRAST WAS GIVEN 1 EACH MISC MISCELLANE PRN (08:49)
[2018-08-16] MEDS ORDERED: ZOLPIDEM 5 MG TAB PO PRN (08:49)
[2018-08-16] MEDS ORDERED: POTASSIUM CHLORIDE ER 10 MEQ TAB.ER.PRT PO SCH (09:00)
[2018-08-16] MEDS ORDERED: MECLIZINE 25 MG TAB PO SCH (09:00)
[2018-08-16] MEDS ORDERED: ISOSORBIDE MONONITRATE ER 30 MG TAB.ER.24H PO SCH (09:00)
[2018-08-16] MEDS ORDERED: CLOPIDOGREL 75 MG TAB PO SCH (09:00)
[2018-08-16] MEDS ORDERED: SODIUM CHLORIDE 0.9% 1,000 ML IV SCH (09:00)
[2018-08-16 09:20] LABS: Glucose,Whole Blood 309 mg/dL (75-99)
--- NOTE | 2018-08-16 09:20 | CC ---
CARDIAC CATHETERIZATION REPORT DATE OF SERVICE: August 16, 2018 PERFORMING PHYSICIAN: Brock Mallory MD, steward/stewardess third class. PROCEDURE PERFORMED: 1. Selective left and right coronary angiogram. 2. OMALLEY to LAD angiogram. 3. SVG to diagonal angiogram. 4. SVG to RCA angiogram. 5. Left heart catheterization. 6. Successful stenting of the first obtuse marginal branch of the left circumflex using 2.5 x 23 mm Xience drug-eluting stent with an excellent angiographic result and reduction of stenosis from 90% to 0%. INDICATION: This is a pleasant 48-year-old gentleman with history of coronary artery disease and prior coronary artery bypass grafting where he received OMALLEY to LAD, SVG to diagonal and SVG to RCA, as well as diabetes, hypertension, and dyslipidemia, was seen in the office recently where he was experiencing symptoms of chest discomfort with exertion concerning for angina. Because of that, a heart catheterization was advised. APPROACH: Right common femoral artery. COMPLICATION: None. LEVEL OF SEDATION: Moderate with sedation length of 44 minutes. PROCEDURE DESCRIPTION: After obtaining an informed consent, the patient was brought to the cardiac label remover. The right common femoral artery was cannulated using micropuncture technique, the micropuncture wire passed easily then I placed a 6-Welsh sheath in the right common femoral artery. Subsequently, I did selective left and right coronary angiogram using JL4 and JR4 catheters. OMALLEY to LAD angiogram was performed using the JR4 catheter. The SVG to diagonal angiogram was also performed using the JR4 catheter. The SVG to RCA was performed using multipurpose catheter. Left heart catheterization was performed using 6-Welsh pigtail catheter. After that I did intervene on the left circumflex, please see a separate paragraph for that. SELECTIVE CORONARY ANGIOGRAM: 1. The left main is a large caliber vessel with mild disease only. It bifurcates into left circumflex, ramus intermedius, and left anterior descending artery. 2. The left circumflex is a large caliber vessel and it is a codominant vessel. The proximal left circumflex appeared to have mild disease only. It gives rise into the first obtuse marginal branch which has a lesion appeared to be in the range of 90% and looks like tubular lesion. The mid left circumflex appeared to be normal. The left circumflex distally is normal and is stented and the stent is patent. The left circumflex distally appeared to be angiographically normal. 3. The ramus intermedius has a tight lesion in the ostium that appeared to be in the range of 80% to 90% but the artery is a medium caliber vessel and about 2 mm vessel. 4. The LAD: The proximal LAD appeared to have a long tubular lesion in the range of 80% to 90%. The mid LAD after the OMALLEY anastomosis, appeared to be angiographically normal. 5. The RCA: The right coronary artery is subtotally occluded in the proximal portion. CORONARY BYPASSES ANGIOGRAM: 1. The OMALLEY to LAD is patent. 2. The SVG to diagonal is patent. 3. The SVG to RCA is patent as well. HEMODYNAMICS: The left ventricular end-diastolic pressure was 10 mmHg without significant gradient across the aortic valve. PCI OF THE LEFT CIRCUMFLEX: Anticoagulation was initiated using Angiomax. Subsequently I did engage the left main using an XP35 LAD guide. A run-through wire was used to wire the lesion to the first obtuse marginal branch. After that I did balloon angioplasty using 2 5 x 15 mm balloon before I deployed 2.5 x 23 mm Xience drug-eluting stent where the stent was positioned under fluoroscopy guidance and deployed under 12 atmospheres for 20 seconds with the following angiogram showing excellent angiographic results and reduction of stenosis from 80% to 90% to 0%. The procedure was completed without any complication. CONCLUSION: 1. Severe triple-vessel coronary artery disease. 2. Patent OMALLEY to LAD. 3. Patent SVG to diagonal. 4. Patent SVG to RCA. 5. Severe disease involving the first obtuse marginal branch of left circumflex as well as ramus intermedius. Both are protected with bypasses. 6. Successful stenting of first obtuse marginal branch of the left circumflex using 2.5 x 23 mm Xience drug-eluting stent with an excellent angiographic result and reduction of stenosis from 90% to 0%. POSTPROCEDURE MANAGEMENT: 1. Dual anti-platelet therapy. 2. Risk factor modifications. 3. Medical treatment for the ramus intermedius coronary artery and if he continues to be symptomatic I would consider doing PCI on it. MMODL / IJN: [id number] /
[2018-08-16] MEDS: MECLIZINE 25 MG TAB PO SCH ×2 (15:30→23:02)
[2018-08-16] MEDS: FUROSEMIDE 20 MG TAB PO SCH (15:30)
[2018-08-16 15:39] VITALS: BMI 43.7
[2018-08-16 16:22] VITALS: RESP 16
[2018-08-16 16:28] LABS: Glucose,Whole Blood 352 mg/dL (75-99)
[2018-08-16] MEDS: HYDROcodone/APAP 10-325MG 1 EACH TAB PO PRN ×2 (18:01→23:02)
[2018-08-16] MEDS: INSULIN ASPART (NovoLOG) 100 UNIT/ML VIAL SQ SCH (18:07)
[2018-08-16] MEDS: FAMOTIDINE 20 MG TAB PO SCH (20:29)
[2018-08-16] MEDS: METOPROLOL TARTRATE 50 MG TAB PO SCH (20:29)
[2018-08-16] MEDS ORDERED: INSULIN DETEMIR (LEVEMIR) 100 UNIT/ML SYR SQ SCH (21:00)
[2018-08-16] MEDS ORDERED: ATORVASTATIN 80 MG TAB PO SCH (21:00)
[2018-08-16] MEDS ORDERED: SERTRALINE 50 MG TAB PO SCH (21:00)
[2018-08-16] MEDS ORDERED: GABAPENTIN 300 MG CAP PO SCH (21:00)
[2018-08-17 04:34] VITALS: PULSE 70
[2018-08-17 05:40] LABS: Glucose,Whole Blood 380 mg/dL (75-99)
[2018-08-17] MEDS: HYDROcodone/APAP 10-325MG 1 EACH TAB PO PRN (05:44)
[2018-08-17 05:55] VITALS: BP 150/64; TEMP 97
[2018-08-17 06:51] LABS: Basophils # (A) 0.1 k/uL (0-0.2); Basophils % (A) 1 %; Eosinophils # (A) 0.3 k/uL (0-0.7); Eosinophils % (A) 4 %; HCT 47.6 % (39.0-53.0); HGB 15.5 gm/dL (13.0-17.5); Lymphocytes # (A) 1.3 k/uL (1.0-4.8); Lymphocytes % (A) 19 %; MCH 29.7 pg (25.0-35.0); MCHC 32.6 g/dL (31.0-37.0); MCV 91.2 fL (80.0-100.0); Mean Platelet Volume 8.4; Monocytes # (A) 0.6 k/uL (0-1.0); Monocytes % (A) 8 %; Neutrophils # (A) 4.4 k/uL (1.3-7.7); Neutrophils % (A) 65 %; Platelet Count 147 k/uL (150-450); RBC 5.22 m/uL (4.30-5.90); RDW 15.2 % (11.5-15.5); WBC 6.8 k/uL (3.8-10.6)
[2018-08-17 07:00] LABS: Anion Gap 8 mmol/L; Blood Urea Nitrogen 27 mg/dL (9-20); Calcium 9.3 mg/dL (8.4-10.2); Carbon Dioxide 24 mmol/L (22-30); Chloride 102 mmol/L (98-107); Glucose 375 mg/dL (74-99); Potassium 4.9 mmol/L (3.5-5.1); Sodium 134 mmol/L (137-145)
[2018-08-17] MEDS: INSULIN ASPART (NovoLOG) 100 UNIT/ML VIAL SQ SCH (07:07)
[2018-08-17] MEDS ORDERED: INSULIN ASPART (NovoLOG) 100 UNIT/ML VIAL SQ SCH ×2 (07:30→18:00)
[2018-08-17] MEDS: MECLIZINE 25 MG TAB PO SCH (08:11)
[2018-08-17] MEDS: FUROSEMIDE 20 MG TAB PO SCH (08:11)
[2018-08-17] MEDS: METOPROLOL TARTRATE 50 MG TAB PO SCH (08:12)
[2018-08-17] MEDS: FAMOTIDINE 20 MG TAB PO SCH (08:12)
[2018-08-17] MEDS ORDERED: ASPIRIN 325 MG TAB PO SCH (09:00)
[2018-08-17] MEDS ORDERED: POTASSIUM CHLORIDE ER 10 MEQ TAB.ER.PRT PO SCH (09:00)
[2018-08-17] MEDS ORDERED: ISOSORBIDE MONONITRATE ER 30 MG TAB.ER.24H PO SCH (09:00)
[2018-08-17] MEDS ORDERED: CLOPIDOGREL 75 MG TAB PO SCH (09:00)
--- NOTE | 2018-08-17 11:41 | DS ---
DISCHARGE SUMMARY DATE OF SERVICE: August 17, 2018 BRIEF HISTORY: This is a pleasant 48-year-old gentleman with known history of coronary artery disease and prior coronary artery bypass grafting where received OMALLEY to LAD, SVG to diagonal and SVG to RCA, was experiencing symptoms of chest discomfort with exertion concerning for angina. He underwent yesterday a heart catheterization and that revealed severe triple-vessel coronary artery disease with patent OMALLEY to LAD, patent SVG to diagonal, and patent SVG to RCA. He was found to have severe disease involving the ramus intermedius as well as first obtuse marginal branch of the left circumflex. He underwent successful stenting of the first obtuse marginal branch of left circumflex with an excellent angiographic result and without any complication. On follow up with him today, he is doing good and he is asymptomatic. The right groin is soft and nontender and without any bruises. The patient is going to be discharged home on dual antiplatelet therapy and I will follow up with the patient in a week in the office. MMTORIL / JEFFN: [id number] /
== END 2018-08-17 08:20 | disposition home or self-care (01) ==
LOC: CATHCVL 06:32 → 3SCARD 14:43 → CATHCVL 08-17 08:20
PROVIDERS: ATTEND Internal Medicine Interventional Cardiology
DX: I25.110 Atherosclerotic heart disease of native coronary artery with unstable angina pectoris (principal); I10 Essential (primary) hypertension; Z72.0 Tobacco use; E78.5 Hyperlipidemia, unspecified; Z82.49 Family history of ischemic heart disease and other diseases of the circulatory system; E11.9 Type 2 diabetes mellitus without complications; E78.00 Pure hypercholesterolemia, unspecified; Z95.5 Presence of coronary angioplasty implant and graft; Z95.1 Presence of aortocoronary bypass graft; E66.3 Overweight; Z68.41 Body mass index [BMI] 40.0-44.9, adult; Z79.02 Long term (current) use of antithrombotics/antiplatelets; Z79.82 Long term (current) use of aspirin; Z79.4 Long term (current) use of insulin; Z79.899 Other long term (current) drug therapy
CPT/HCPCS: 93459; 80048; 85025; C9600; C1760; C1769 ×4; C1725; C1887; C1894 ×2; C1874; J2250; J1170; J2001; J3010; J0583; Q9966; Q9967

== ENCOUNTER → 2018-08-29 | Outpatient (CLI) | payer OTHER ==
--- NOTE | 2018-08-30 10:32 | XR ---
EXAMINATION TYPE: XR chest 2V DATE OF EXAM: 08/29/2018 COMPARISON: Prior chest x-ray 06/04/2018 HISTORY: Chest pain TECHNIQUE: Frontal and lateral views of the chest are obtained. FINDINGS: There is no focal air space opacity, pleural effusion, or pneumothorax seen. The cardiac silhouette size is stable, patient is post median sternotomy. The aorta is dense. Patient is rotate d. The osseous structures are intact. IMPRESSION: No acute cardiopulmonary process.
== END ==
LOC: RADXRMAIN 16:56
PROVIDERS: ATTEND Surgery
DX: R07.9 Chest pain, unspecified (principal)
CPT/HCPCS: 71046

== ENCOUNTER → 2018-09-05 | Outpatient (CLI) | payer OTHER ==
[2018-09-05 14:49] LABS: Blood Urea Nitrogen 26 mg/dL (9-20)
--- NOTE | 2018-09-05 16:59 | CT ---
EXAMINATION TYPE: CT chest w con DATE OF EXAM: 09/05/2018 COMPARISON: NONE HISTORY: Chest pain CT DLP: 801 mGycm. Automated Exposure Control for Dose Reduction was Utilized. TECHNIQUE: CT scan of the thorax is performed following with IV Contrast, patient injected with 100 mL of Isovue 300. FINDINGS: LUNGS: The lungs are grossly clear, there is no concerning parenchymal mass or nodule identified. M inimal lingular atelectasis is present. There is no pleural effusion or pneumothorax seen. The trach eobronchial tree is patent. MEDIASTINUM: There are no greater than 1 cm hilar or mediastinal lymph nodes. No pericardial effusi on is seen. Post CABG changes are present. OTHER: Minimal retroareolar bilateral gynecomastia seen. Median sternotomy wires are noted. Ventral a bdominal hernia contains outpouching of the liver and has a wide neck just below the sternal border m easuring 6.2 cm. Right superior pole renal cyst measures 1.4 cm. Mild degree hepatic steatosis is see n, limiting evaluation for hepatic masses. Small calculus is noted near the gallbladder fundus. Heale d fracture deformity is seen of the right fifth rib laterally. Mild multilevel degenerative changes o f spine. IMPRESSION: 1. Ventral abdominal hernia containing liver just below the sternal border. This has a wide neck ifrah uring 6.2 cm. 2. Hepatic steatosis. 3. Cholelithiasis. 4. Healed right fifth rib lateral fracture deformity.
== END ==
LOC: RADCTMAIN 13:56
PROVIDERS: ATTEND Surgery
DX: R07.9 Chest pain, unspecified (principal); K43.9 Ventral hernia without obstruction or gangrene; K80.20 Calculus of gallbladder without cholecystitis without obstruction; K76.0 Fatty (change of) liver, not elsewhere classified
CPT/HCPCS: 82565; 84520; 71260; 36415; Q9967

== ENCOUNTER 2018-10-18 19:48 | Observation (INO) | payer OTHER ==
--- NOTE | 2018-10-18 20:20 | ED ---
Chest Pain HPI - General Chief Complaint: Chest Pain Stated Complaint: Chest pain Time Seen by Provider: 10/18/18 19:55 Source: patient, RN notes reviewed, old records reviewed Mode of arrival: wheelchair Limitations: no limitations - History of Present Illness Initial Comments: This is a 48-year-old male the ER for evaluation of chest pain history of heart disease history of multiple cardiac risk factors including CABG and stent. No recent travel history no sick contacts no fevers or shortness of breath no diaphoresis, just pain today left-sided chest pain. Patient states he was diagnosed with hiatal hernia. Patient was concerned that pain may be related to prior surgical injury with that was made to that it was in By his cardiovascular thoracic surgery. Patient currently without recent travel history or sick contacts - Related Data Home Medications Medication Instructions Recorded Confirmed Furosemide [Lasix] 20 mg PO DAILY 06/05/18 10/18/18 Potassium Chloride [K-Tab ER] 10 meq PO DAILY 06/05/18 10/18/18 Sertraline [Zoloft] 50 mg PO HS 06/05/18 10/18/18 Insulin Glargine,Hum.rec.anlog 60 unit SQ HS 08/12/18 10/18/18 [Basaglar Kwikpen U-100] Insulin Lispro [Admelog] 25 units INJ TID-W/MEALS 08/12/18 10/18/18 Isosorbide Mononitrate [Isosorbide 30 mg PO DAILY 08/12/18 10/18/18 Mononitrate ER] Meclizine [Antivert] 25 mg PO TID 08/12/18 10/18/18 Metoprolol Tartrate [Lopressor] 100 mg PO BID 08/12/18 10/18/18 Aspirin EC [Ecotrin Low Dose] 81 mg PO DAILY 10/18/18 10/18/18 Gabapentin 600 mg PO HS 10/18/18 10/18/18 Previous Rx's Medication Instructions Recorded Atorvastatin [Lipitor] 80 mg PO HS #30 tab 08/12/17 Clopidogrel [Plavix] 75 mg PO DAILY #30 tablet 08/12/17 HYDROcodone/APAP 10-325MG [Cartwright 1 - 2 tab PO Q6H PRN #30 tab 08/12/17 10-325] Allergies Allergy/AdvReac Type Severity Reaction Status Date / Time No Known Allergies Allergy Verified 10/18/18 20:38 Review of Systems ROS Statement: Those systems with pertinent positive or pertinent negative responses have been documented in the HPI. ROS Other: All systems not noted in ROS Statement are negative. EKG Findings - EKG Comments: EKG Findings:: EKG shows sinus rhythm rate of 81, FL 160, QRS 74, QTc 439 Past Medical History Past Medical History: Coronary Artery Disease (CAD), Diabetes Mellitus, GERD/Reflux, Hyperlipidemia, Hypertension, Myocardial Infarction (HI), Osteoarthritis (OA), Pneumonia, Renal Disease Additional Past Medical History / Comment(s): NIDDM type II, chronic lumbar pain, colitis, athrtitis bilateral hands/wrists, nephrolithiasis., BILAT RETINOPATHY Last Myocardial Infarction Date:: 11/02/16, HI-08/02/17 History of Any Multi-Drug Resistant Organisms: None Reported, MRSA Date of last positivie culture/infection: 10/08/2018 MDRO Source:: left lower leg Past Surgical History: Back Surgery, Coronary Bypass/CABG, Heart Catheterization With Stent, Orthopedic Surgery Additional Past Surgical History / Comment(s): 11/02/16 PCI with stent to RCA, stent to circ, kidney stone basketing, failed L4-L5 fusions x 2, colonoscopy. 3 vessel CABG 08/02/2017 Past Anesthesia/Blood Transfusion Reactions: No Reported Reaction Date of Last Stent Placement:: 11/02/16 Past Psychological History: No Psychological Hx Reported Smoking Status: Former smoker Past Alcohol Use History: None Reported Past Drug Use History: None Reported - Past Family History Father Family Medical History: Congestive Heart Failure (CHF), Coronary Artery Disease (CAD), CVA/TIA, Myocardial Infarction (HI) Additional Family Medical History / Comment(s): Father at the age of 63 yrs. Pt doesn't recall age of father's HI. Mother Family Medical History: Cancer Additional Family Medical History / Comment(s): Mother had multiple cancers. She is living. General Exam Limitations: no limitations General appearance: alert, in no apparent distress Head exam: Present: atraumatic, normocephalic, normal inspection Eye exam: Present: normal appearance, PERRL, EOMI. Absent: scleral icterus, conjunctival injection, periorbital swelling ENT exam: Present: normal exam, mucous membranes moist Neck exam: Present: normal inspection. Absent: tenderness, meningismus, lymphadenopathy Respiratory exam: Present: normal lung sounds bilaterally. Absent: respiratory distress, wheezes, rales, rhonchi, stridor Cardiovascular Exam: Present: regular rate, normal rhythm, normal heart sounds. Absent: systolic murmur, diastolic murmur, rubs, gallop, clicks GI/Abdominal exam: Present: soft, normal bowel sounds. Absent: distended, tenderness, guarding, rebound, rigid Extremities exam: Present: normal inspection, full ROM, normal capillary refill. Absent: tenderness, pedal edema, joint swelling, calf tenderness Back exam: Present: normal inspection Neurological exam: Present: alert, oriented X3, CN II-XII intact Psychiatric exam: Present: normal affect, normal mood Skin exam: Present: warm, dry, intact, normal color. Absent: rash Course Vital Signs 10/18/18 19:49 Temperature 98.7 F Pulse Rate 80 Respiratory 18 Rate Blood Pressure 144/80 O2 Sat by Pulse 97 Oximetry - Reevaluation(s) Reevaluation #1: 10/18/18 21:33 Medical record is reviewed with significant history of heart disease Reevaluation #2: 10/18/18 21:33 CT of chest secondary to elevated d-dimer is negative for PE Reevaluation #3: 10/18/18 21:33 Patient still with chest pain Chest Pain MDM - MDM 48 male the ER for evaluation. Patient is presenting with chest pain. Patient be with CABG and stent placement. Patient be admitted for cardiology observation Critical Care Time Critical Care Time: Yes Total Critical Care Time: 31 Disposition Clinical Impression: Unstable angina, Chest pain Disposition: ADMITTED IP TO THIS HOSP Condition: Fair Is patient prescribed a controlled substance at d/c from ED?: No Referrals: Guzman Araujo MD [Primary Care Provider] - 1-2 days
[2018-10-18 20:45] LABS: ALT 28 U/L (21-72); AST 30 U/L (17-59); African American GFR (CKD) >90 (>60 ml/min/1.73 sqM); Albumin 3.3 g/dL (3.5-5.0); Alkaline Phosphatase 99 U/L (38-126); Anion Gap 8 mmol/L; Blood Urea Nitrogen 29 mg/dL (9-20); Calcium 8.6 mg/dL (8.4-10.2); Carbon Dioxide 22 mmol/L (22-30); Chloride 103 mmol/L (98-107); Glucose 363 mg/dL (74-99); Lipase 404 U/L (23-300); Magnesium 2.2 mg/dL (1.6-2.3); Potassium 4.8 mmol/L (3.5-5.1); Sodium 133 mmol/L (137-145); Total Bilirubin 0.8 mg/dL (0.2-1.3); Total Protein 6.1 g/dL (6.3-8.2)
[2018-10-18 20:53] LABS: INR 0.8 (<1.2); Prothrombin Time 9.4 sec (9.0-12.0)
[2018-10-18 20:56] LABS: HCT 44.2 % (39.0-53.0); MCH 31.5 pg (25.0-35.0); MCHC 33.9 g/dL (31.0-37.0); Mean Platelet Volume 8.2; Platelet Count 141 k/uL (150-450); RBC 4.76 m/uL (4.30-5.90); RDW 15.9 % (11.5-15.5); WBC 7.3 k/uL (3.8-10.6)
[2018-10-18 21:01] LABS: D-Dimer 0.6 mg/L FEU (<0.60)
[2018-10-18 21:15] LABS: Band Neutrophils % 3 %; Eosinophils # (M) 0.07 k/uL (0-0.7); Lymphocytes # (M) 1.75 k/uL (1.0-4.8); Monocytes # (M) 0.51 k/uL (0-1.0); Neutrophils % (M) 65 %; Nucleated Red Blood Cells 0 /100 WBC (0-0); Total Cells Counted 100
[2018-10-18] MEDS ORDERED: HEPARIN SODIUM,PORCINE 5,000 UNIT/ML 1 ML VIAL IV PRN (21:26)
[2018-10-18] MEDS ORDERED: ASPIRIN 81 MG PO STA (21:26)
[2018-10-18] MEDS ORDERED: HEPARIN SODIUM,PORCINE 5,000 UNIT/ML 1 ML VIAL IV ONE (21:26)
[2018-10-18] MEDS ORDERED: NITROGLYCERIN SL TABS 0.4 MG TAB SUBLINGUAL PRN (21:26)
[2018-10-18] MEDS ORDERED: MORPHINE SULFATE 4 MG/ML SYRINGE IV PRN (21:26)
[2018-10-18] MEDS ORDERED: HEPARIN SOD,PORK IN 0.45% NACL 25,000 UNIT in 0.45% NACL 1 250ML.BAG IV SCH (21:30)
--- NOTE | 2018-10-18 21:55 | XR ---
EXAMINATION: XR chest 2V DATE AND TIME: 10/18/2018 9:17 PM CLINICAL INDICATION: PHH; Chest Pain TECHNIQUE: Departmental protocol COMPARISON: 08/29/2018 FINDINGS: The lungs show an interstitial pattern of increased attenuation which mild moderately silhouettes the pulmonary vasculature bilaterally. This can correlate with a clinical diagnosis of mild interstitial phase pulmonary edema. Cardiogenic versus noncardiogenic etiologies can't be clinically delineated. Sternal sutures are noted and mild/moderate enlargement cardiac silhouette. The pleural spaces are negative. The skeletal structures and soft tissues are negative for acute findings. IMPRESSION: Pulmonary interstitial pattern as discussed.
[2018-10-18] MEDS: SODIUM CHLORIDE 0.9% 1,000 ML IV SCH (22:31)
--- NOTE | 2018-10-18 22:37 | CT ---
EXAM: CT Angiography Chest With Intravenous Contrast CLINICAL HISTORY: ITS.REASON CT Reason: Pain TECHNIQUE: Axial computed tomographic angiography images of the chest with intravenous contrast using pulmonary embolism protocol. CTDI is 24.6 mGy and DLP is 922.2 mGy-cm. This CT exam was performed using one or more of the following dose reduction techniques: automated exposure control, adjustment of the mA and/or kV according to patient size, and/or use of iterative reconstruction technique. MIP reconstructed images were created and reviewed. COMPARISON: CT chest on 09/05/2018 FINDINGS: Lung parenchyma: Mild atelectasis at. No focal consolidation. No nodule. Pleural space: Normal. No pleural effusion or pneumothorax. Mediastinum/aldo: Median sternotomy changes. No mass or lymphadenopathy. Heart: Mild cardiomegaly. CABG changes. Coronary artery calcifications. No significant pericardial effusion. Vasculature: Normal. No pulmonary embolus. Aorta: Normal. No aneurysm or dissection. Airways: Patent. Bones: Old bilateral rib fracture deformities. No bony lesion or acute fracture. Osteopenia. Degenerative changes of the spine. Muscles: No mass. Subcutaneous tissues: Mild bilateral gynecomastia. Ventral hernia again noted in the upper anterior abdominal wall containing portions of the liver. Upper abdomen: Borderline size of the spleen. Hepatomegaly. Probable cholelithiasis again noted. IMPRESSION: 1. No pulmonary embolus identified. 2. No aortic aneurysm or dissection. 3. No acute pulmonary parenchymal abnormality identified. 4. Ventral hernia again noted in the upper anterior abdominal wall containing portions of the liver.
[2018-10-19 00:24] VITALS: BMI 44.6
[2018-10-19] MEDS ORDERED: METOPROLOL TARTRATE 25 MG TAB PO SCH ×2 (00:27→09:00)
[2018-10-19 04:00] LABS: Cholesterol 210 mg/dL (<200); HDL Cholesterol 36 mg/dL (40-60)
[2018-10-19 04:05] LABS: Mean Platelet Volume 8.4; Platelet Count 137 k/uL (150-450)
[2018-10-19 04:25] LABS: Triglycerides 1498 mg/dL (<150)
[2018-10-19 06:53] LABS: Glucose,Whole Blood 342 mg/dL (75-99)
[2018-10-19] MEDS ORDERED: ISOSORBIDE MONONITRATE ER 30 MG TAB.ER.24H PO SCH (09:00)
[2018-10-19] MEDS ORDERED: ASPIRIN 81 MG PO SCH (09:00)
[2018-10-19] MEDS ORDERED: ATORVASTATIN 80 MG TAB PO SCH (09:00)
[2018-10-19] MEDS ORDERED: FENOFIBRATE 160 MG TAB PO SCH (09:00)
[2018-10-19] MEDS ORDERED: POTASSIUM CHLORIDE ER 10 MEQ TAB.ER.PRT PO SCH (09:00)
[2018-10-19] MEDS ORDERED: METOPROLOL TARTRATE 50 MG TAB PO SCH (09:00)
[2018-10-19] MEDS ORDERED: CLOPIDOGREL 75 MG TAB PO SCH (09:00)
[2018-10-19] MEDS ORDERED: FUROSEMIDE 20 MG TAB PO SCH (09:00)
[2018-10-19] MEDS ORDERED: ASPIRIN 325 MG TAB PO SCH (09:00)
[2018-10-19] MEDS: SODIUM CHLORIDE 0.9% 1,000 ML IV SCH (10:28)
[2018-10-19 11:37] LABS: Glucose,Whole Blood 387 mg/dL (75-99)
[2018-10-19] MEDS ORDERED: INSULIN ASPART (NovoLOG) 100 UNIT/ML VIAL SQ SCH ×2 (12:40→17:30)
[2018-10-19 12:41] VITALS: BP 143/78; PULSE 84; TEMP 97.5
--- NOTE | 2018-10-19 12:58 | P.CRDCN ---
History of Present Illness History of present illness: This is a pleasant 48-year-old male past medical history significant for coronary artery disease s/p bypass grafting with MOALLEY to LAD, SVG to diet, SVG to RCA and subsequent stent placement to the first OM branch of the left circumflex and August 2018, he also has an 80 % lesion in the ramus that is being treated medically. He also has hypertension, dyslipidemia, diabetes mellitus and morbid obesity. He follows in the office with Dr. Mallory. We have been asked to see him in consultation secondary to chest discomfort. He presented to the emergency department yesterday describing a burning sensation in the epigastric region. He continues to have discomfort in this area that is significantly reproducible and tender on palpation. There is no radiation to the arm, back, neck or jaw. This pain is not associated with shortness of breath, dizziness, nausea, vomiting, diaphoresis or palpitations. He states this discomfort has been going on for the past few months with no specific aggravating or alleviating factors. He had this same discomfort prior to his catheterization in August that was initially thought to be unstable angina. EKG reveals sinus mechanism with nonspecific ST abnormalities in the inferior leads. No acute changes 2. Chest x-ray reveal mild pulmonary interstitial pattern. CTA chest negative for pulmonary embolism, no aortic aneurysm resection, ventral hernia in the upper anterior abdominal wall containing portions of the liver. Laboratory data reviewed, WBC 7.3, hemoglobin 137, d-dimer 0.6, sodium 133, potassium 4.8, creatinine 1.07, cardiac enzymes negative 3, triglycerides 1498, NT proBNP 109. Current cardiac medications include aspirin 81 mg daily, Plavix 75 mg daily, Lasix 20 mg daily, potassium chloride 10 daily, Imdur 30 mg daily, Lopressor 100 mg twice a day and atorvastatin 80 mg daily. Most recent echocardiogram obtained in the office thousand and 19 preserved systolic function, mildly dilated left atrium with no valvular abnormalities noted. At the time of my exam: CONSTITUTIONAL: Denies fever. Denies chills. EYES: Denies blurred vision. Denies vision changes. Denies eye pain. EARS, NOSE, MOUTH & THROAT: Denies headache. Denies sore throat. Denies ear pain. CARDIOVASCULAR: Denies chest pain. Denies shortness of breath. Denies orthopnea. Denies PND. Denies palpitations. RESPIRATORY: Denies cough. GASTROINTESTINAL: Denies abdominal pain. Denies diarrhea. Denies constipation. Denies nausea. Denies vomiting. MUSCULOSKELETAL: Denies myalgias. INTEGUMENTARY: Denies pruitis. Denies rash. NEUROLOGIC: Denies numbness. Denies tingling. Denies weakness. PSYCHIATRIC: Denies anxiety. Denies depression. ENDOCRINE: Denies fatigue. Denies weight change. Denies polydipsia. Denies polyurina. GENITOURINARY: Denies burning, hematuria or urgency with micturation. HEMATOLOGIC: Denies history of anemia. Denies bleeding. Blood pressure 147/89 heart rate 80 afebrile maintaining oxygen saturation on room air GENERAL: This is a 48-year-old male in no apparent distress at the time of my examination. HEENT: Head is atraumatic, normocephalic. Pupils are equal, round. Sclerae anicteric. Conjunctivae are clear. Mucous membranes of the mouth are moist. Neck is supple. There is no jugular venous distention. No carotid bruit is heard. LUNGS: Clear to auscultation no wheezes, rales or rhonchi. No chest wall tenderness is noted on palpation or with deep breathing. HEART: Regular rate and rhythm without murmurs, rubs or gallops. S1 and S2 heard. ABDOMEN: Soft, epigastric tenderness. Bowel sounds are heard. No organomegaly noted. EXTREMITIES: No evidence of peripheral edema and no calf tenderness noted. VASCULAR: Radial and dorsalis pedis pulses palpated, no evidence of clubbing. NEUROLOGIC: Patient is awake, alert and oriented x3. ASSESSMENT Reproducible epigastric and midsternal chest pain, atypical for angina. An acute coronary event has been ruled out. Acute pancreatitis Ventral hernia in upper abdominal wall containing portions of the liver. Hypertriglyceridemia History of coronary artery disease status post bypass grafting and recent stent placement to the August 2018. Maintained on dual antiplatelet therapy. Dyslipidemia Hypertension Diabetes mellitus Former nicotine dependence, quit July 2017 Former heavy alcohol use, last drink July 2017 Morbid obesity, BMI 44 PLAN An acute coronary event has been ruled out. Discontinue heparin infusion. Initiated on fenofibrate 160 mg daily for significant hypertriglyceridemia. Continue aspirin, Plavix, Lasix, Imdur, Lopressor and atorvastatin. Pain is reproducible on palpation and very atypical for angina. Ongoing medical management. Follow-up upon discharge with Dr. Mallory. Thank you kindly for this consultation. Nurse Practitioner note has been reviewed, I agree with a documented findings and plan of care. Patient was seen and examined. Past Medical History Past Medical History: Coronary Artery Disease (CAD), Diabetes Mellitus, GERD/Reflux, Hyperlipidemia, Hypertension, Myocardial Infarction ([place]), Osteoarthritis (OA), Pneumonia, Renal Disease Additional Past Medical History / Comment(s): NIDDM type II, chronic lumbar pain, colitis, athrtitis bilateral hands/wrists, nephrolithiasis., BILAT RETINOPATHY Last Myocardial Infarction Date:: 11/02/16, [place]-08/02/17 History of Any Multi-Drug Resistant Organisms: None Reported, MRSA Date of last positivie culture/infection: 10/08/2018 MDRO Source:: left lower leg Past Surgical History: Back Surgery, Coronary Bypass/CABG, Heart Catheterization With Stent, Orthopedic Surgery Additional Past Surgical History / Comment(s): 11/02/16 PCI with stent to RCA, stent to circ, kidney stone basketing, failed L4-L5 fusions x 2, colonoscopy. 3 vessel CABG 08/02/2017 Past Anesthesia/Blood Transfusion Reactions: No Reported Reaction Date of Last Stent Placement:: 11/02/16 Past Psychological History: No Psychological Hx Reported Additional Psychological History / Comment(s): Pt resides with his spouse. He is independent. He has a glucometer but no lancets or strips. Smoking Status: Former smoker Past Alcohol Use History: None Reported Additional Past Alcohol Use History / Comment(s): Pt started smoking at the age of 17 yrs (1986) and quit in 2018 after open heart. pt reports no longer drinking daily after CABG Past Drug Use History: None Reported - Past Family History Father Family Medical History: Congestive Heart Failure (CHF), Coronary Artery Disease (CAD), CVA/TIA, Myocardial Infarction ([place]) Additional Family Medical History / Comment(s): Father at the age of 63 yrs. Pt doesn't recall age of father's [place]. Mother Family Medical History: Cancer Additional Family Medical History / Comment(s): Mother had multiple cancers. She is living. Medications and Allergies Home Medications Medication Instructions Recorded Confirmed Type Atorvastatin [Lipitor] 80 mg PO HS #30 tab 08/12/17 10/18/18 Rx Clopidogrel [Plavix] 75 mg PO DAILY #30 tablet 08/12/17 10/18/18 Rx HYDROcodone/APAP 10-325MG [[place] 1 - 2 tab PO Q6H PRN #30 tab 08/12/17 10/18/18 Rx 10-325] Furosemide [Lasix] 20 mg PO DAILY 06/05/18 10/18/18 History Potassium Chloride [K-Tab ER] 10 meq PO DAILY 06/05/18 10/18/18 History Sertraline [Zoloft] 50 mg PO HS 06/05/18 10/18/18 History Insulin Glargine,Hum.rec.anlog 60 unit SQ HS 08/12/18 10/18/18 History [Basaglar Kwikpen U-100] Insulin Lispro [Admelog] 25 units INJ TID-W/MEALS 08/12/18 10/18/18 History Isosorbide Mononitrate [Isosorbide 30 mg PO DAILY 08/12/18 10/18/18 History Mononitrate ER] Meclizine [Antivert] 25 mg PO TID 08/12/18 10/18/18 History Metoprolol Tartrate [Lopressor] 100 mg PO BID 08/12/18 10/18/18 History Aspirin EC [Ecotrin Low Dose] 81 mg PO DAILY 10/18/18 10/18/18 History Gabapentin 600 mg PO HS 10/18/18 10/18/18 History Allergies Allergy/AdvReac Type Severity Reaction Status Date / Time No Known Allergies Allergy Verified 10/18/18 20:38 Physical Exam Vitals: Vital Signs Temp Pulse Pulse Pulse Resp BP BP 10/19/18 08:00 97.4 F L 80 16 10/18/18 23:04 98 F 80 16 159/98 10/18/18 22:50 86 21 143/83 10/18/18 22:40 88 17 143/83 10/18/18 22:30 89 33 H 143/91 10/18/18 22:20 143/91 10/18/18 22:10 143/91 10/18/18 22:00 86 8 L 143/91 10/18/18 21:50 143/91 10/18/18 21:40 78 143/91 10/18/18 21:30 77 3 L 145/79 10/18/18 21:20 84 6 L 145/79 10/18/18 21:10 83 5 L 145/79 10/18/18 21:00 79 9 L 138/84 10/18/18 20:50 84 16 138/84 10/18/18 20:40 81 16 138/84 10/18/18 20:30 82 29 H 141/88 10/18/18 20:20 81 141/88 10/18/18 20:10 80 3 L 141/88 10/18/18 20:05 80 23 10/18/18 19:49 98.7 F 80 18 144/80 BP Pulse Ox 10/19/18 08:00 147/89 97 10/18/18 23:04 98 10/18/18 22:50 10/18/18 22:40 10/18/18 22:30 94 L 10/18/18 22:20 10/18/18 22:10 10/18/18 22:00 97 10/18/18 21:50 97 10/18/18 21:40 10/18/18 21:30 94 L 10/18/18 21:20 94 L 10/18/18 21:10 95 10/18/18 21:00 97 10/18/18 20:50 94 L 10/18/18 20:40 95 10/18/18 20:30 95 10/18/18 20:20 94 L 10/18/18 20:10 94 L 10/18/18 20:05 93 L 10/18/18 19:49 97 Intake and Output 10/18/18 10/19/18 10/19/18 22:59 06:59 14:59 Intake Total 259.803 Balance 259.803 Intake: Intake, IV Titration 59.803 Amount Heparin Sod,Pork in 0.45% 59.803 NaCl 25,000 unit In 0.45 % NaCl 1 250ml.bag @ 7.28 UNITS/KG/HR 9.995 mls/hr IV .Q24H [facility] Rx#: [id number] Oral 200 Other: # Voids 1 Weight 137.3 kg Results 10/19/18 02:56 10/18/18 20:20 Cardiac Enzymes 10/18/18 10/18/18 10/19/18 Range/Units 20:20 20:20 02:56 AST 30 (17-59) U/L Troponin I <0.012 <0.012 (0.000-0.034) ng/mL 10/19/18 Range/Units 08:46 AST (17-59) U/L Troponin I <0.012 (0.000-0.034) ng/mL Coagulation 10/18/18 10/19/18 Range/Units 20:20 02:56 PT 9.4 (9.0-12.0) sec APTT 23.0 27.3 (22.0-30.0) sec Lipids 10/19/18 Range/Units 02:56 Triglycerides 1498 H (<150) mg/dL Cholesterol 210 H (<200) mg/dL HDL Cholesterol 36 L (40-60) mg/dL CBC 10/18/18 10/19/18 Range/Units 20:20 02:56 WBC 7.3 (3.8-10.6) k/uL RBC 4.76 (4.30-5.90) m/uL Hgb 15.0 (13.0-17.5) gm/dL Hct 44.2 (39.0-53.0) % Plt Count 141 L 137 L (150-450) k/uL Comprehensive Metabolic Panel 10/18/18 Range/Units 20:20 Sodium 133 L (137-145) mmol/L Potassium 4.8 (3.5-5.1) mmol/L Chloride 103 (98-107) mmol/L Carbon Dioxide 22 (22-30) mmol/L BUN 29 H (9-20) mg/dL Creatinine 1.07 (0.66-1.25) mg/dL Glucose 363 H (74-99) mg/dL Calcium 8.6 (8.4-10.2) mg/dL AST 30 (17-59) U/L ALT 28 (21-72) U/L Alkaline Phosphatase 99 (38-126) U/L Total Protein 6.1 L (6.3-8.2) g/dL Albumin 3.3 L (3.5-5.0) g/dL Current Medications Generic Name Dose Route Start Last Admin Trade Name Freq PRN Reason Stop Dose Admin Aspirin 81 mg 10/19/18 09:00 10/19/18 10:28 Aspirin PO 81 mg DAILY ANDRE Administration Atorvastatin Calcium 80 mg 10/19/18 09:00 10/19/18 10:28 Lipitor PO 80 mg DAILY ANDRE Administration Clopidogrel Bisulfate 75 mg 10/19/18 09:00 10/19/18 10:28 Plavix PO 75 mg DAILY ANDRE Administration Fenofibrate 160 mg 10/19/18 09:00 10/19/18 10:29 Lofibra PO 160 mg DAILY ANDRE Administration Furosemide 20 mg 10/19/18 09:00 10/19/18 10:29 Lasix PO 20 mg DAILY ANDRE Administration Heparin Sodium (Porcine) 0 unit 10/18/18 21:26 Heparin IV Q6HR PRN Low PTT Protocol Sodium Chloride 1,000 mls @ 100 mls/hr 10/18/18 21:30 10/19/18 10:28 Saline 0.9% IV Not Given .Q10H [facility] Isosorbide Mononitrate 30 mg 10/19/18 09:00 10/19/18 10:28 Imdur PO 30 mg DAILY ANDRE Administration Metoprolol Tartrate 100 mg 10/19/18 09:00 10/19/18 10:28 Lopressor PO 100 mg BID ANDRE Administration Morphine Sulfate 4 mg 10/18/18 21:26 10/19/18 10:33 Morphine Sulfate (Inj) IV 4 mg Q6HR PRN Administration Chest Pain Nitroglycerin 0.4 mg 10/18/18 21:26 Nitrostat SUBLINGUAL Q5M PRN Chest Pain Pantoprazole Sodium 40 mg 10/19/18 17:30 Protonix PO AC-BID ANDRE Potassium Chloride 10 meq 10/19/18 09:00 10/19/18 10:29 K-Dur 10 PO 10 meq DAILY ANDRE Administration Intake and Output 10/18/18 10/19/18 10/19/18 22:59 06:59 14:59 Intake Total 259.803 Balance 259.803 Intake: Intake, IV Titration 59.803 Amount Heparin Sod,Pork in 0.45% 59.803 NaCl 25,000 unit In 0.45 % NaCl 1 250ml.bag @ 7.28 UNITS/KG/HR 9.995 mls/hr IV .Q24H [facility] Rx#: [id number] Oral 200 Other: # Voids 1 Weight 137.3 kg 10/19/18 02:56 10/18/18 20:20
--- NOTE | 2018-10-19 14:15 | P.HPIM ---
History of Present Illness Patient is pleasant 48-year-old the male with the previous history of carotid disease status post CABG came in with complaints of June epigastric abdominal discomfort mostly burning sensation nonradiating mostly associated with food denied any diaphoresis lightheadedness. Radiation pain is moderate severity better now 2/10 now. Patient was evaluated by cardiology patient had a CT angios the chest showed hiatal hernia patient was ruled out acute coronary syndromes cardiology does not believe this is cardiac origin chest pain and the probably related to hiatal hernia. Patient has an appointment with Gen. surgery he has an outpatient for this patient will be discharged on Prilosec simethicone. Review of Systems REVIEW OF SYSTEMS: CONSTITUTIONAL: No fever, no malaise, no fatigue. HEENT: No recent visual problems or hearing problems. Denied any sore throat. CARDIOVASCULAR: No orthopnea, PND, no palpitations, no syncope. PULMONARY: No shortness of breath, no cough, no hemoptysis. GASTROINTESTINAL: No diarrhea, NEUROLOGICAL: No headaches, no weakness, no numbness. HEMATOLOGICAL: Denies any bleeding or petechiae. GENITOURINARY: Denies any burning micturition, frequency, or urgency. MUSCULOSKELETAL/RHEUMATOLOGICAL: Denies any joint pain, swelling, or any muscle pain. ENDOCRINE: Denies any polyuria or polydipsia. The rest of the 14-point review of systems is negative. Past Medical History Past Medical History: Coronary Artery Disease (CAD), Diabetes Mellitus, GERD/Reflux, Hyperlipidemia, Hypertension, Myocardial Infarction ([place]), Osteoarthritis (OA), Pneumonia, Renal Disease Additional Past Medical History / Comment(s): NIDDM type II, chronic lumbar pain, colitis, athrtitis bilateral hands/wrists, nephrolithiasis., BILAT RETINOPATHY Last Myocardial Infarction Date:: 11/02/16, [place]-08/02/17 History of Any Multi-Drug Resistant Organisms: None Reported, MRSA Date of last positivie culture/infection: 10/08/2018 MDRO Source:: left lower leg Past Surgical History: Back Surgery, Coronary Bypass/CABG, Heart Catheterization With Stent, Orthopedic Surgery Additional Past Surgical History / Comment(s): 11/02/16 PCI with stent to RCA, stent to circ, kidney stone basketing, failed L4-L5 fusions x 2, colonoscopy. 3 vessel CABG 08/02/2017 Past Anesthesia/Blood Transfusion Reactions: No Reported Reaction Date of Last Stent Placement:: 11/02/16 Past Psychological History: No Psychological Hx Reported Additional Psychological History / Comment(s): Pt resides with his spouse. He is independent. He has a glucometer but no lancets or strips. Smoking Status: Former smoker Past Alcohol Use History: None Reported Additional Past Alcohol Use History / Comment(s): Pt started smoking at the age of 17 yrs (1986) and quit in 2018 after open heart. pt reports no longer drinking daily after CABG Past Drug Use History: None Reported - Past Family History Father Family Medical History: Congestive Heart Failure (CHF), Coronary Artery Disease (CAD), CVA/TIA, Myocardial Infarction ([place]) Additional Family Medical History / Comment(s): Father at the age of 63 yrs. Pt doesn't recall age of father's [place]. Mother Family Medical History: Cancer Additional Family Medical History / Comment(s): Mother had multiple cancers. She is living. Medications and Allergies Home Medications Medication Instructions Recorded Confirmed Type Atorvastatin [Lipitor] 80 mg PO HS #30 tab 08/12/17 10/18/18 Rx Clopidogrel [Plavix] 75 mg PO DAILY #30 tablet 08/12/17 10/18/18 Rx HYDROcodone/APAP 10-325MG [[place] 1 - 2 tab PO Q6H PRN #30 tab 08/12/17 10/18/18 Rx 10-325] Furosemide [Lasix] 20 mg PO DAILY 06/05/18 10/18/18 History Potassium Chloride [K-Tab ER] 10 meq PO DAILY 06/05/18 10/18/18 History Sertraline [Zoloft] 50 mg PO HS 06/05/18 10/18/18 History Insulin Glargine,Hum.rec.anlog 60 unit SQ HS 08/12/18 10/18/18 History [Basaglar Kwikpen U-100] Insulin Lispro [Admelog] 25 units INJ TID-W/MEALS 08/12/18 10/18/18 History Isosorbide Mononitrate [Isosorbide 30 mg PO DAILY 08/12/18 10/18/18 History Mononitrate ER] Meclizine [Antivert] 25 mg PO TID 08/12/18 10/18/18 History Metoprolol Tartrate [Lopressor] 100 mg PO BID 08/12/18 10/18/18 History Aspirin EC [Ecotrin Low Dose] 81 mg PO DAILY 10/18/18 10/18/18 History Gabapentin 600 mg PO HS 10/18/18 10/18/18 History Fenofibrate [Lofibra] 160 mg PO DAILY #90 tab 10/19/18 Rx Omeprazole [PriLOSEC] 40 mg PO AC-BRKFST #30 capsule. 10/19/18 Rx Simethicone Chew [Mylicon Chew] 80 mg PO QID #60 chewable 10/19/18 Rx Allergies Allergy/AdvReac Type Severity Reaction Status Date / Time No Known Allergies Allergy Verified 10/18/18 20:38 Physical Exam Vitals: Vital Signs Temp Pulse Pulse Pulse Resp BP BP 10/19/18 12:00 97.5 F L 84 17 10/19/18 08:00 97.4 F L 80 16 10/18/18 23:04 98 F 80 16 159/98 10/18/18 22:50 86 21 143/83 10/18/18 22:40 88 17 143/83 10/18/18 22:30 89 33 H 143/91 10/18/18 22:20 143/91 10/18/18 22:10 143/91 10/18/18 22:00 86 8 L 143/91 10/18/18 21:50 143/91 10/18/18 21:40 78 143/91 10/18/18 21:30 77 3 L 145/79 10/18/18 21:20 84 6 L 145/79 10/18/18 21:10 83 5 L 145/79 10/18/18 21:00 79 9 L 138/84 10/18/18 20:50 84 16 138/84 10/18/18 20:40 81 16 138/84 10/18/18 20:30 82 29 H 141/88 10/18/18 20:20 81 141/88 10/18/18 20:10 80 3 L 141/88 10/18/18 20:05 80 23 10/18/18 19:49 98.7 F 80 18 144/80 BP Pulse Ox 10/19/18 12:00 143/78 97 10/19/18 08:00 147/89 97 10/18/18 23:04 98 10/18/18 22:50 10/18/18 22:40 10/18/18 22:30 94 L 10/18/18 22:20 10/18/18 22:10 10/18/18 22:00 97 10/18/18 21:50 97 10/18/18 21:40 10/18/18 21:30 94 L 10/18/18 21:20 94 L 10/18/18 21:10 95 10/18/18 21:00 97 10/18/18 20:50 94 L 10/18/18 20:40 95 10/18/18 20:30 95 10/18/18 20:20 94 L 10/18/18 20:10 94 L 10/18/18 20:05 93 L 10/18/18 19:49 97 Intake and Output 10/18/18 10/19/18 10/19/18 22:59 06:59 14:59 Intake Total 259.803 Balance 259.803 Intake: Intake, IV Titration 59.803 Amount Heparin Sod,Pork in 0.45% 59.803 NaCl 25,000 unit In 0.45 % NaCl 1 250ml.bag @ 7.28 UNITS/KG/HR 9.995 mls/hr IV .Q24H [facility] Rx#: [id number] Oral 200 Other: # Voids 1 Weight 137.3 kg PHYSICAL EXAMINATION: GENERAL: The patient is alert and oriented x3, not in any acute distress. Well developed, well nourished. HEENT: Pupils are round and equally reacting to light. EOMI. No scleral icterus. No conjunctival pallor. Normocephalic, atraumatic. No pharyngeal erythema. No thyromegaly. CARDIOVASCULAR: S1 and S2 present. No murmurs, rubs, or gallops. PULMONARY: Chest is clear to auscultation, no wheezing or crackles. ABDOMEN: Soft, nontender, nondistended, normoactive bowel sounds. No palpable organomegaly. MUSCULOSKELETAL: No joint swelling or deformity. EXTREMITIES: No cyanosis, clubbing, or pedal edema. NEUROLOGICAL: Gross neurological examination did not reveal any focal deficits. SKIN: No rashes. Results CBC & Chem 7: 10/19/18 02:56 10/18/18 20:20 Labs: Abnormal Lab Results - Last 24 Hours (Table) 10/18/18 10/18/1810/18/19 Range/Units 20:20 20:20 20:20 RDW 15.9 H (11.5-15.5) % Plt Count 141 L (150-450) k/uL D-Dimer 0.60 H (<0.60) mg/L FEU Sodium 133 L (137-145) mmol/L BUN 29 H (9-20) mg/dL Glucose 363 H (74-99) mg/dL POC Glucose (mg/dL) (75-99) mg/dL Total Protein 6.1 L (6.3-8.2) g/dL Albumin 3.3 L (3.5-5.0) g/dL Triglycerides (<150) mg/dL Cholesterol (<200) mg/dL HDL Cholesterol (40-60) mg/dL Lipase 404 H (23-300) U/L 10/19/18 10/19/18 10/19/18 Range/Units 02:56 02:56 06:49 RDW (11.5-15.5) % Plt Count 137 L (150-450) k/uL D-Dimer (<0.60) mg/L FEU Sodium (137-145) mmol/L BUN (9-20) mg/dL Glucose (74-99) mg/dL POC Glucose (mg/dL) 342 H (75-99) mg/dL Total Protein (6.3-8.2) g/dL Albumin (3.5-5.0) g/dL Triglycerides 1498 H (<150) mg/dL Cholesterol 210 H (<200) mg/dL HDL Cholesterol 36 L (40-60) mg/dL Lipase (23-300) U/L 10/19/18 Range/Units 11:35 RDW (11.5-15.5) % Plt Count (150-450) k/uL D-Dimer (<0.60) mg/L FEU Sodium (137-145) mmol/L BUN (9-20) mg/dL Glucose (74-99) mg/dL POC Glucose (mg/dL) 387 H (75-99) mg/dL Total Protein (6.3-8.2) g/dL Albumin (3.5-5.0) g/dL Triglycerides (<150) mg/dL Cholesterol (<200) mg/dL HDL Cholesterol (40-60) mg/dL Lipase (23-300) U/L Thrombosis Risk Factor Assmnt - Choose All That Apply Each Factor Represents 1 point: Age 41-60 years Other congenital or acquired thrombophilia - If yes, enter type in comment: No Thrombosis Risk Factor Assessment Total Risk Factor Score: 1 Thrombosis Risk Factor Assessment Level: Low Risk Assessment and Plan Plan: Epigastric abdominal pain probably secondary to hiatal hernia and gastroesophageal reflux disease patient was ruled out acute current symptoms was evaluated by cardiology patient will be discharged with the above-mentioned plan -Per lipidemia and diabetic highly elevated hypertriglyceridemia patient is already on high dose of statin patient was started on fenofibrate which is appropriate and patient will be discharged on fenofibrate the high-dose a statin and fenofibrate can cause myalgias. -Coronary artery disease Have a type 2 diabetes mellitus -Hyperlipidemia -Hypertension 11 coronary artery disease with previous myocardial infarctions -Insulin-dependent diabetes mellitus patient has type 2 diabetes mellitus. Patient blood sugars are presently elevated because he did not receive his n ighttime insulin. On is to discharge and follow with the Dr. Dorsey as an outpatient regarding has an appointment for 16 of November.
--- NOTE | 2018-10-19 14:15 | P.DS ---
Providers Date of admission: 10/18/18 21:26 Attending physician: Dominique Soriano Consults: 10/18/18 21:26 Consult Physician Urgent Consulting Provider: Armando Rangel Consult Reason/Comments: cp Do you want consulting provider notified?: Yes 10/19/18 11:10 Consult Physician Urgent Consulting Provider: Calvin Dorsey Consult Reason/Comments: ventral hernia Do you want consulting provider notified?: Yes [facility] Please refer to my HPI Patient Condition at Discharge: Fair Plan - Discharge Summary Discharge Rx Participant: No New Discharge Prescriptions: New Fenofibrate [Lofibra] 160 mg PO DAILY #90 tab Simethicone Chew [Mylicon Chew] 80 mg PO QID #60 chewable Omeprazole [PriLOSEC] 40 mg PO AC-BRKFST #30 capsule.dr Continue Atorvastatin [Lipitor] 80 mg PO HS #30 tab Clopidogrel [Plavix] 75 mg PO DAILY #30 tablet HYDROcodone/APAP 10-325MG [[place] 10-325] 1 - 2 tab PO Q6H PRN #30 tab PRN Reason: Pain Furosemide [Lasix] 20 mg PO DAILY Potassium Chloride [K-Tab ER] 10 meq PO DAILY Sertraline [Zoloft] 50 mg PO HS Meclizine [Antivert] 25 mg PO TID Isosorbide Mononitrate [Isosorbide Mononitrate ER] 30 mg PO DAILY Metoprolol Tartrate [Lopressor] 100 mg PO BID Insulin Lispro [Admelog] 25 units INJ TID-W/MEALS Insulin Glargine,Hum.rec.anlog [Basaglar Kwikpen U-100] 60 unit SQ HS Gabapentin 600 mg PO HS Aspirin EC [Ecotrin Low Dose] 81 mg PO DAILY Discharge Medication List Atorvastatin [Lipitor] 80 mg PO HS #30 tab 08/12/17 [Rx] Clopidogrel [Plavix] 75 mg PO DAILY #30 tablet 08/12/17 [Rx] HYDROcodone/APAP 10-325MG [[place] 10-325] 1 - 2 tab PO Q6H PRN #30 tab 08/12/17 [Rx] Furosemide [Lasix] 20 mg PO DAILY 06/05/18 [History] Potassium Chloride [K-Tab ER] 10 meq PO DAILY 06/05/18 [History] Sertraline [Zoloft] 50 mg PO HS 06/05/18 [History] Insulin Glargine,Hum.rec.anlog [Basaglar Kwikpen U-100] 60 unit SQ HS 08/12/18 [History] Insulin Lispro [Admelog] 25 units INJ TID-W/MEALS 08/12/18 [History] Isosorbide Mononitrate [Isosorbide Mononitrate ER] 30 mg PO DAILY 08/12/18 [History] Meclizine [Antivert] 25 mg PO TID 08/12/18 [History] Metoprolol Tartrate [Lopressor] 100 mg PO BID 08/12/18 [History] Aspirin EC [Ecotrin Low Dose] 81 mg PO DAILY 10/18/18 [History] Gabapentin 600 mg PO HS 10/18/18 [History] Fenofibrate [Lofibra] 160 mg PO DAILY #90 tab 10/19/18 [Rx] Omeprazole [PriLOSEC] 40 mg PO KRIS-GRICELDAKDENITA #30 capsule. 10/19/18 [Rx] Simethicone Chew [Mylicon Chew] 80 mg PO QID #60 chewable 10/19/18 [Rx] Follow up Appointment(s)/Referral(s): Guzman Araujo MD [Primary Care Provider] - 3 Days Brock Mallory MD [STAFF PHYSICIAN] - 2 Weeks Discharge Disposition: HOME SELF-CARE
[2018-10-19 15:42] VITALS: RESP 16
[2018-10-19] MEDS ORDERED: PANTOPRAZOLE 40 MG TABLET PO SCH (17:30)
[2018-10-19] MEDS ORDERED: INSULIN DETEMIR (LEVEMIR) 100 UNIT/ML SYR SQ SCH (21:00)
== END 2018-10-19 15:35 | disposition home or self-care (01) ==
LOC: EC 19:48 → 1SOBS 21:26
PROVIDERS: ADMIT Hospitalist; ATTEND Hospitalist
DX: R10.13 Epigastric pain (principal); R07.89 Other chest pain; E66.01 Morbid (severe) obesity due to excess calories; Z68.41 Body mass index [BMI] 40.0-44.9, adult; K44.9 Diaphragmatic hernia without obstruction or gangrene; I25.10 Atherosclerotic heart disease of native coronary artery without angina pectoris; E11.319 Type 2 diabetes mellitus with unspecified diabetic retinopathy without macular edema; E78.1 Pure hyperglyceridemia; K21.9 Gastro-esophageal reflux disease without esophagitis; K43.9 Ventral hernia without obstruction or gangrene; M19.042 Primary osteoarthritis, left hand; M19.041 Primary osteoarthritis, right hand; K85.90 Acute pancreatitis without necrosis or infection, unspecified; M54.5 Low back pain; G89.29 Other chronic pain; E78.5 Hyperlipidemia, unspecified; I10 Essential (primary) hypertension; Z86.14 Personal history of Methicillin resistant Staphylococcus aureus infection; Z95.5 Presence of coronary angioplasty implant and graft; Z95.1 Presence of aortocoronary bypass graft; Z87.891 Personal history of nicotine dependence; I25.2 Old myocardial infarction; Z79.02 Long term (current) use of antithrombotics/antiplatelets; Z79.4 Long term (current) use of insulin; Z79.82 Long term (current) use of aspirin; Z79.899 Other long term (current) drug therapy; Z87.442 Personal history of urinary calculi; Z82.49 Family history of ischemic heart disease and other diseases of the circulatory system
CPT/HCPCS: 96366 ×2; 96375; 96376; 96365; 99291; 36415; 93005; 85379; 83880; 80061; 80053; 83690; 83735; 84484 ×2; 85025; 85049; 85610; 85730 ×2; 71046; 71275; G0378 ×2; J2270; J1644 ×2; Q9967

== ENCOUNTER 2018-12-20 10:19 | Observation (INO) | payer OTHER ==
[2018-12-20] MEDS ORDERED: MORPHINE SULFATE 4 MG/ML SYRINGE IV STA (10:42)
--- NOTE | 2018-12-20 10:45 | ED ---
General Adult HPI - General Chief complaint: Chest Pain Stated complaint: Rib Pain Time Seen by Provider: 12/20/18 10:33 Source: patient, RN notes reviewed Mode of arrival: ambulatory Limitations: no limitations - History of Present Illness Initial comments: Patient is a pleasant 48-year-old male presenting to the emergency department with left-sided rib discomfort. 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 Patient states when he got up he did feel a pop on the left ribs. Patient states he has had discomfort since that time. Discomfort is positional. Discomfort increases with deep breaths. Patient states when he tries to take a deep breath at times he has to catch his breath. Patient states does not feel like his previous heart discomfort. Patient did have sternotomy just over one year ago secondary to her problems. No nausea or vomiting. No diaphoresis. No leg pain or leg swelling. - Related Data Home Medications Medication Instructions Recorded Confirmed Furosemide [Lasix] 20 mg PO DAILY 06/05/18 12/20/18 Potassium Chloride [K-Tab ER] 10 meq PO DAILY 06/05/18 12/20/18 Sertraline [Zoloft] 50 mg PO HS 06/05/18 12/20/18 Insulin Glargine,Hum.rec.anlog 60 unit SQ HS 08/12/18 12/20/18 [[place]aron[place]a Nicholas U-100] Insulin Lispro [Admelog] 25 units SQ TID-W/MEALS 08/12/18 12/20/18 Isosorbide Mononitrate [Isosorbide 30 mg PO DAILY 08/12/18 12/20/18 Mononitrate ER] Meclizine [Antivert] 25 mg PO TID 08/12/18 12/20/18 Metoprolol Tartrate [Lopressor] 100 mg PO BID 08/12/18 12/20/18 Aspirin EC [Ecotrin Low Dose] 81 mg PO DAILY 10/18/18 12/20/18 Gabapentin 600 mg PO HS 10/18/18 12/20/18 Previous Rx's Medication Instructions Recorded Atorvastatin [Lipitor] 80 mg PO HS #30 tab 08/12/17 Clopidogrel [Plavix] 75 mg PO DAILY #30 tablet 08/12/17 HYDROcodone/APAP 10-325MG [[place] 1 - 2 tab PO Q6H PRN #30 tab 04/05/18 10-325] Fenofibrate [Lofibra] 160 mg PO DAILY #90 tab 10/19/18 Omeprazole [PriLOSEC] 40 mg PO AC-BRKFST #30 capsule. 10/19/18 Simethicone Chew [Mylicon Chew] 80 mg PO QID #60 chewable 10/19/18 Allergies Allergy/AdvReac Type Severity Reaction Status Date / Time No Known Allergies Allergy Verified 12/20/18 10:47 Review of Systems ROS Statement: Those systems with pertinent positive or pertinent negative responses have been documented in the HPI. ROS Other: All systems not noted in ROS Statement are negative. Constitutional: Denies: fever Eyes: Denies: eye pain ENT: Denies: ear pain Respiratory: Reports: as per HPI. Denies: cough Cardiovascular: Reports: as per HPI Endocrine: Denies: fatigue Gastrointestinal: Denies: abdominal pain Genitourinary: Denies: dysuria Musculoskeletal: Denies: back pain Skin: Denies: rash Neurological: Denies: weakness Past Medical History Past Medical History: Coronary Artery Disease (CAD), Diabetes Mellitus, GERD/Reflux, Hyperlipidemia, Hypertension, Myocardial Infarction ([place]), Osteoarthritis (OA), Pneumonia, Renal Disease Additional Past Medical History / Comment(s): NIDDM type II, chronic lumbar pain, colitis, athrtitis bilateral hands/wrists, nephrolithiasis., BILAT RETINOPATHY Last Myocardial Infarction Date:: 11/02/16, [place]-08/02/17 History of Any Multi-Drug Resistant Organisms: None Reported, MRSA Date of last positivie culture/infection: 10/08/2018 MDRO Source:: left lower leg Past Surgical History: Back Surgery, Coronary Bypass/CABG, Heart Catheterization With Stent, Orthopedic Surgery Additional Past Surgical History / Comment(s): 11/02/16 PCI with stent to RCA, stent to circ, kidney stone basketing, failed L4-L5 fusions x 2, colonoscopy. 3 vessel CABG 08/02/2017 Past Anesthesia/Blood Transfusion Reactions: No Reported Reaction Date of Last Stent Placement:: 11/02/16 Past Psychological History: No Psychological Hx Reported Smoking Status: Former smoker Past Alcohol Use History: None Reported Past Drug Use History: None Reported - Past Family History Father Family Medical History: Congestive Heart Failure (CHF), Coronary Artery Disease (CAD), CVA/TIA, Myocardial Infarction (NH) Additional Family Medical History / Comment(s): Father at the age of 63 yrs. Pt doesn't recall age of father's NH. Mother Family Medical History: Cancer Additional Family Medical History / Comment(s): Mother had multiple cancers. She is living. General Exam Limitations: no limitations General appearance: alert, in no apparent distress Head exam: Present: atraumatic Eye exam: Present: normal appearance, PERRL ENT exam: Present: normal oropharynx Neck exam: Present: normal inspection Respiratory exam: Present: normal lung sounds bilaterally, chest wall tenderness (Left anterior chest) Cardiovascular Exam: Present: regular rate, normal rhythm Expanded Peripheral pulses: 2+: Radial (R), Radial (L), Dorsalis Pedis (R), Dorsalis Pedis (L) GI/Abdominal exam: Present: soft. Absent: tenderness Extremities exam: Present: normal inspection. 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 NH 144. QRS 88. QT 382. QTC 454. Inferior Q waves. No acute ST change. Medical Decision Making - Medical Decision Making Patient reevaluated and resting comfortably in bed. Somewhat improved. Patient updated on results and plan. Case was discussed with Dr. Briones, who will admit covering for Dr. godinez - Lab Data Result diagrams: 12/20/18 11:49 12/20/18 11:49 Lab Results 12/20/18 12/20/18 12/20/18 Range/Units 11:49 11:49 11:49 WBC 7.5 (3.8-10.6) k/uL RBC 5.07 (4.30-5.90) m/uL Hgb 15.4 (13.0-17.5) gm/dL Hct 47.4 (39.0-53.0) % MCV 93.6 (80.0-100.0) fL MCH 30.4 (25.0-35.0) pg MCHC 32.4 (31.0-37.0) g/dL RDW 14.4 (11.5-15.5) % Plt Count 171 (150-450) k/uL Neutrophils % 69 % Lymphocytes % 16 % Monocytes % 8 % Eosinophils % 3 % Basophils % 1 % Neutrophils # 5.2 (1.3-7.7) k/uL Lymphocytes # 1.2 (1.0-4.8) k/uL Monocytes # 0.6 (0-1.0) k/uL Eosinophils # 0.3 (0-0.7) k/uL Basophils # 0.1 (0-0.2) k/uL PT 9.4 (9.0-12.0) sec INR 0.8 (<1.2) APTT 19.8 L (22.0-30.0) sec D-Dimer 0.52 (<0.60) mg/L FEU Sodium 134 L (137-145) mmol/L Potassium 5.0 (3.5-5.1) mmol/L Chloride 99 (98-107) mmol/L Carbon Dioxide 27 (22-30) mmol/L Anion Gap 8 mmol/L BUN 30 H (9-20) mg/dL Creatinine 1.00 (0.66-1.25) mg/dL Est GFR (CKD-EPI)AfAm >90 (>60 ml/min/1.73 sqM) Est GFR (CKD-EPI)NonAf 89 (>60 ml/min/1.73 sqM) Glucose 461 H (74-99) mg/dL Calcium 9.4 (8.4-10.2) mg/dL Magnesium 1.7 (1.6-2.3) mg/dL Total Bilirubin 0.9 (0.2-1.3) mg/dL AST 36 (17-59) U/L ALT 27 (21-72) U/L Alkaline Phosphatase 74 (38-126) U/L Creatine Kinase 113 (55-170) U/L Troponin I (0.000-0.034) ng/mL Total Protein 6.3 (6.3-8.2) g/dL Albumin 3.4 L (3.5-5.0) g/dL 12/20/18 Range/Units 11:49 WBC (3.8-10.6) k/uL RBC (4.30-5.90) m/uL Hgb (13.0-17.5) gm/dL Hct (39.0-53.0) % MCV (80.0-100.0) fL MCH (25.0-35.0) pg MCHC (31.0-37.0) g/dL RDW (11.5-15.5) % Plt Count (150-450) k/uL Neutrophils % % Lymphocytes % % Monocytes % % Eosinophils % % Basophils % % Neutrophils # (1.3-7.7) k/uL Lymphocytes # (1.0-4.8) k/uL Monocytes # (0-1.0) k/uL Eosinophils # (0-0.7) k/uL Basophils # (0-0.2) k/uL PT (9.0-12.0) sec INR (<1.2) APTT (22.0-30.0) sec D-Dimer (<0.60) mg/L FEU Sodium (137-145) mmol/L Potassium (3.5-5.1) mmol/L Chloride (98-107) mmol/L Carbon Dioxide (22-30) mmol/L Anion Gap mmol/L BUN (9-20) mg/dL Creatinine (0.66-1.25) mg/dL Est GFR (CKD-EPI)AfAm (>60 ml/min/1.73 sqM) Est GFR (CKD-EPI)NonAf (>60 ml/min/1.73 sqM) Glucose (74-99) mg/dL Calcium (8.4-10.2) mg/dL Magnesium (1.6-2.3) mg/dL Total Bilirubin (0.2-1.3) mg/dL AST (17-59) U/L ALT (21-72) U/L Alkaline Phosphatase (38-126) U/L Creatine Kinase (55-170) U/L Troponin I <0.012 (0.000-0.034) ng/mL Total Protein (6.3-8.2) g/dL Albumin (3.5-5.0) g/dL - Radiology Data Radiology results: image reviewed (Left rib and chest x-ray shows no acute process. Old rib fracture suspected.) Disposition Clinical Impression: Chest pain, Diabetes, Hyperglycemia Disposition: ADMITTED IP TO THIS HOSP Is patient prescribed a controlled substance at d/c from ED?: No Referrals: Guzman Godinez MD [Primary Care Provider] - 1-2 days Decision Time: 13:07
--- NOTE | 2018-12-20 11:30 | XR ---
Chest x-ray with left RIBS HISTORY: Trauma and pain Frontal view of the chest, 4 views of left ribs submitted and correlated prior chest x-ray and chest CT 10/18/2018 Patient is post median sternotomy. Cardiac mediastinal silhouette, pulmonary vascularity and aldo are stable. There is no evident airspace disease, pneumothorax, or pleural effusion. First rib on the le ft shows a cortical irregularity laterally, oblique image shows a cortical step-off as on prior CT. T he sixth rib laterally shows a contour abnormality which may be billing representative of an old fracture whi ch appears healed. Degenerative disc changes are noted in the visualized spine. IMPRESSION: Postop changes. Old rib fractures.
[2018-12-20 12:06] LABS: Basophils # (A) 0.1 k/uL (0-0.2); Basophils % (A) 1 %; Eosinophils # (A) 0.3 k/uL (0-0.7); Eosinophils % (A) 3 %; HCT 47.4 % (39.0-53.0); HGB 15.4 gm/dL (13.0-17.5); Lymphocytes # (A) 1.2 k/uL (1.0-4.8); Lymphocytes % (A) 16 %; MCH 30.4 pg (25.0-35.0); MCHC 32.4 g/dL (31.0-37.0); MCV 93.6 fL (80.0-100.0); Mean Platelet Volume 8.4; Monocytes # (A) 0.6 k/uL (0-1.0); Monocytes % (A) 8 %; Neutrophils # (A) 5.2 k/uL (1.3-7.7); Neutrophils % (A) 69 %; Platelet Count 171 k/uL (150-450); RBC 5.07 m/uL (4.30-5.90); RDW 14.4 % (11.5-15.5); WBC 7.5 k/uL (3.8-10.6)
[2018-12-20 12:26] LABS: ALT 27 U/L (21-72); AST 36 U/L (17-59); African American GFR (CKD) >90 (>60 ml/min/1.73 sqM); Albumin 3.4 g/dL (3.5-5.0); Alkaline Phosphatase 74 U/L (38-126); Anion Gap 8 mmol/L; Blood Urea Nitrogen 30 mg/dL (9-20); Calcium 9.4 mg/dL (8.4-10.2); Carbon Dioxide 27 mmol/L (22-30); Chloride 99 mmol/L (98-107); Creatine Kinase 113 U/L (55-170); Glucose 461 mg/dL (74-99); Magnesium 1.7 mg/dL (1.6-2.3); Sodium 134 mmol/L (137-145); Total Bilirubin 0.9 mg/dL (0.2-1.3); Total Protein 6.3 g/dL (6.3-8.2)
[2018-12-20 12:30] LABS: D-Dimer 0.52 mg/L FEU (<0.60); INR 0.8 (<1.2); Prothrombin Time 9.4 sec (9.0-12.0)
[2018-12-20 12:51] LABS: Partial Thromboplastin Time 19.8 sec (22.0-30.0)
[2018-12-20] MEDS ORDERED: INSULIN REGULAR 100 UNIT/ML VIAL IV ONE (13:07)
[2018-12-20] MEDS ORDERED: ASPIRIN 81 MG PO STA (13:09)
[2018-12-20] MEDS ORDERED: NITROGLYCERIN SL TABS 0.4 MG TAB SUBLINGUAL PRN (13:09)
[2018-12-20 14:05] LABS: Glucose,Whole Blood 506 mg/dL (75-99)
[2018-12-20 14:05] LABS: Glucose,Whole Blood 422 mg/dL (75-99)
[2018-12-20 14:53] VITALS: RESP 18
[2018-12-20 16:08] LABS: Glucose,Whole Blood 341 mg/dL (75-99)
[2018-12-20] MEDS ORDERED: HYDROcodone/APAP 10-325MG 1 EACH TAB PO PRN (16:12)
[2018-12-20] MEDS ORDERED: MORPHINE SULFATE 2 MG/ML SYRINGE IVP STA (16:17)
[2018-12-20] MEDS ORDERED: INSULIN ASPART (NovoLOG) 100 UNIT/ML VIAL SQ SCH ×2 (17:30)
[2018-12-20] MEDS ORDERED: INSULIN LISPRO (For Pump) 100 UNIT/ML VIAL SQ-PUMP SCH (17:30)
[2018-12-20] MEDS ORDERED: NITROGLYCERIN OINT 1 INCH/GM PACKET TOPICAL SCH (18:00)
[2018-12-20] MEDS ORDERED: KETOROLAC 30 MG/ML 1 ML VIAL IVP PRN (18:56)
--- NOTE | 2018-12-20 19:33 | P.HPIM ---
History of Present Illness 48-year-old male with a recently fracture came in with compensative pain going on for 2 days after eating or abnormally while working on the [employer] syndromes and he heard a pop with the chest pain after that patient chest pain appears to be noncardiac not associated with food worsens with deep breathing although d- dimer is negative. Patient denied any fever chills denied any cough doesn't have any pneumonia on the chest x-ray facet of troponin is negative EKG within normal limits. Patient had extensive cardiac history had a cardiac ablation in the past also has hiatal hernia. Patient was evaluated recently in the [facility]. Patient blood sugars are highly elevated admits to missing insulin as today patient appears to be noncompliant with medications patient is agreeable to be competent with medications and checks will check his blood sugars 4 times a day for discharge him. I'll obtain another set of troponin patient chest pain appears to be clearly noncardiac musculoskeletal and the patient is insisting on discharge and patient will follow with Dr. Mallory as outpatient and Dr. Araujo as an outpatient Review of Systems REVIEW OF SYSTEMS: CONSTITUTIONAL: No fever, no malaise, no fatigue. HEENT: No recent visual problems or hearing problems. Denied any sore throat. CARDIOVASCULAR: No orthopnea, PND, no palpitations, no syncope. PULMONARY: No shortness of breath, no cough, no hemoptysis. GASTROINTESTINAL: No diarrhea, no nausea, no vomiting, no abdominal pain. NEUROLOGICAL: No headaches, no weakness, no numbness. HEMATOLOGICAL: Denies any bleeding or petechiae. GENITOURINARY: Denies any burning micturition, frequency, or urgency. MUSCULOSKELETAL/RHEUMATOLOGICAL: Denies any joint pain, swelling, or any muscle pain. ENDOCRINE: Denies any polyuria or polydipsia. The rest of the 14-point review of systems is negative. Past Medical History Past Medical History: Coronary Artery Disease (CAD), Diabetes Mellitus, GERD/Reflux, Hyperlipidemia, Hypertension, Myocardial Infarction (MS), Osteoarthritis (OA), Pneumonia, Renal Disease Additional Past Medical History / Comment(s): NIDDM type II, chronic lumbar pain, colitis, athrtitis bilateral hands/wrists, nephrolithiasis., BILAT RETINOPATHY Last Myocardial Infarction Date:: 11/02/16, [place]-08/02/17 History of Any Multi-Drug Resistant Organisms: MRSA Date of last positivie culture/infection: 10/08/2018 MDRO Source:: left lower leg Past Surgical History: Back Surgery, Coronary Bypass/CABG, Heart Catheterization With Stent, Orthopedic Surgery Additional Past Surgical History / Comment(s): 11/02/16 PCI with stent to RCA, stent to circ, kidney stone basketing, failed L4-L5 fusions x 2, colonoscopy. 3 vessel CABG 08/02/2017, 08/2018 stent Past Anesthesia/Blood Transfusion Reactions: No Reported Reaction Date of Last Stent Placement:: 08/2018 Past Psychological History: No Psychological Hx Reported Additional Psychological History / Comment(s): Pt resides with his spouse. He is independent. He has a glucometer but no lancets or strips. Smoking Status: Former smoker Past Alcohol Use History: None Reported Additional Past Alcohol Use History / Comment(s): Pt started smoking at the age of 17 yrs (1986) and quit in 2017 after open heart. pt reports no longer drinking daily after CABG Past Drug Use History: None Reported - Past Family History Father Family Medical History: Congestive Heart Failure (CHF), Coronary Artery Disease (CAD), CVA/TIA, Myocardial Infarction (MS) Additional Family Medical History / Comment(s): Father at the age of 63 yrs. Pt doesn't recall age of father's MS. Mother Family Medical History: Cancer Additional Family Medical History / Comment(s): Mother had multiple cancers. She is living. Medications and Allergies Home Medications Medication Instructions Recorded Confirmed Type Atorvastatin [Lipitor] 80 mg PO HS #30 tab 08/12/17 12/20/18 Rx Clopidogrel [Plavix] 75 mg PO DAILY #30 tablet 08/12/17 12/20/18 Rx HYDROcodone/APAP 10-325MG [[place] 1 - 2 tab PO Q6H PRN #30 tab 08/12/17 12/20/18 Rx 10-325] Furosemide [Lasix] 20 mg PO DAILY 06/05/18 12/20/18 History Potassium Chloride [K-Tab ER] 10 meq PO DAILY 06/05/18 12/20/18 History Sertraline [Zoloft] 50 mg PO HS 06/05/18 12/20/18 History Insulin Glargine,Hum.rec.anlog 60 unit SQ HS 08/12/18 12/20/18 History [Felisha Nicholas U-100] Insulin Lispro [Admelog] 25 units SQ TID-W/MEALS 08/12/18 12/20/18 History Isosorbide Mononitrate [Isosorbide 30 mg PO DAILY 08/12/18 12/20/18 History Mononitrate ER] Meclizine [Antivert] 25 mg PO TID 08/12/18 12/20/18 History Metoprolol Tartrate [Lopressor] 100 mg PO BID 08/12/18 12/20/18 History Aspirin EC [Ecotrin Low Dose] 81 mg PO DAILY 10/18/18 12/20/18 History Gabapentin 600 mg PO HS 10/18/18 12/20/18 History Fenofibrate [Lofibra] 160 mg PO DAILY #90 tab 10/19/18 12/20/18 Rx Omeprazole [PriLOSEC] 40 mg PO AC-BRKFST #30 capsule. 10/19/18 12/20/18 Rx Simethicone Chew [Mylicon Chew] 80 mg PO QID #60 chewable 10/19/18 12/20/18 Rx Allergies Allergy/AdvReac Type Severity Reaction Status Date / Time No Known Allergies Allergy Verified 12/20/18 10:47 Physical Exam Vitals: Vital Signs Temp Pulse Pulse Pulse Resp BP BP 12/20/18 16:00 87 96 18 12/20/18 14:51 98.1 F 96 18 143/84 12/20/18 14:06 98.0 F 90 13 130/74 12/20/18 10:30 87 12/20/18 10:24 97.9 F 87 18 151/91 Pulse Ox 12/20/18 16:00 12/20/18 14:51 95 12/20/18 14:06 96 12/20/18 10:30 12/20/18 10:24 95 Intake and Output 12/20/18 12/20/18 12/20/18 06:59 14:59 22:59 Intake Total 600 Balance 600 Intake: Oral 600 Other: Voiding Method Toilet Weight 131.542 kg PHYSICAL EXAMINATION: GENERAL: The patient is alert and oriented x3, not in any acute distress. Obese HEENT: Pupils are round and equally reacting to light. EOMI. No scleral icterus. No conjunctival pallor. Normocephalic, atraumatic. No pharyngeal erythema. No thyromegaly. CARDIOVASCULAR: S1 and S2 present. No murmurs, rubs, or gallops. PULMONARY: Chest is clear to auscultation, no wheezing or crackles. ABDOMEN: Soft, nontender, nondistended, normoactive bowel sounds. No palpable organomegaly. MUSCULOSKELETAL: No joint swelling or deformity. EXTREMITIES: No cyanosis, clubbing, or pedal edema. NEUROLOGICAL: Gross neurological examination did not reveal any focal deficits. SKIN: No rashes. Results CBC & Chem 7: 12/20/18 11:49 12/20/18 11:49 Labs: Abnormal Lab Results - Last 24 Hours (Table) 12/20/18 12/20/18 12/20/18 Range/Units 11:49 11:49 13:58 APTT 19.8 L (22.0-30.0) sec Sodium 134 L (137-145) mmol/L BUN 30 H (9-20) mg/dL Glucose 461 H (74-99) mg/dL POC Glucose (mg/dL) 506 H (75-99) mg/dL Albumin 3.4 L (3.5-5.0) g/dL 12/20/18 12/20/18 Range/Units 14:00 16:05 APTT (22.0-30.0) sec Sodium (137-145) mmol/L BUN (9-20) mg/dL Glucose (74-99) mg/dL POC Glucose (mg/dL) 422 H 341 H (75-99) mg/dL Albumin (3.5-5.0) g/dL Thrombosis Risk Factor Assmnt - Choose All That Apply Any of the Below Risk Factors Present?: Yes Each Factor Represents 1 point: Age 41-60 years, Obesity (BMI >25) Other Risk Factors: No Other congenital or acquired thrombophilia - If yes, enter type in comment: No Thrombosis Risk Factor Assessment Total Risk Factor Score: 2 Thrombosis Risk Factor Assessment Level: Low Risk Assessment and Plan Plan: -Chest pain: Musculoskeletal noncardiac, will opt another set of troponin and EKG and if those are negative patient will be discharged today. -Hypoglycemia, type 2 diabetes mellitus uncontrolled blood sugars due to noncompliance counseling regarding this was provided at counseling was provided as well. -Hyponatremia pseudohyponatremia from hyperglycemia -Depression -Hypertension -Diabetic peripheral neuropathy -Hyperlipidemia -Coronary artery disease with myocardial infarction in the past -Gases with reflux disease and hiatal hernia -Obesity -Chronic low back pain
--- NOTE | 2018-12-20 19:33 | P.DS ---
Providers Date of admission: 12/20/18 13:09 Attending physician: Brandyn Briones Consults: 12/20/18 13:09 Consult Physician Urgent Consulting Provider: Brock Mallory Consult Reason/Comments: cp Do you want consulting provider notified?: Yes Primary care physician: [facility] Course: Please refer to my history of present illness Plan - Discharge Summary Discharge Rx Participant: No New Discharge Prescriptions: Continue Atorvastatin [Lipitor] 80 mg PO HS #30 tab Clopidogrel [Plavix] 75 mg PO DAILY #30 tablet HYDROcodone/APAP 10-325MG [[place] 10-325] 1 - 2 tab PO Q6H PRN #30 tab PRN Reason: Pain Furosemide [Lasix] 20 mg PO DAILY Potassium Chloride [K-Tab ER] 10 meq PO DAILY Sertraline [Zoloft] 50 mg PO HS Meclizine [Antivert] 25 mg PO TID Isosorbide Mononitrate [Isosorbide Mononitrate ER] 30 mg PO DAILY Metoprolol Tartrate [Lopressor] 100 mg PO BID Insulin Lispro [Admelog] 25 units SQ TID-W/MEALS Insulin Glargine,Hum.rec.anlog [Basaglar Kwikpen U-100] 60 unit SQ HS Gabapentin 600 mg PO HS Aspirin EC [Ecotrin Low Dose] 81 mg PO DAILY Fenofibrate [Lofibra] 160 mg PO DAILY #90 tab Simethicone Chew [Mylicon Chew] 80 mg PO QID #60 chewable Omeprazole [PriLOSEC] 40 mg PO AC-BRKFST #30 capsule.dr Discharge Medication List Atorvastatin [Lipitor] 80 mg PO HS #30 tab 08/12/17 [Rx] Clopidogrel [Plavix] 75 mg PO DAILY #30 tablet 08/12/17 [Rx] HYDROcodone/APAP 10-325MG [[place] 10-325] 1 - 2 tab PO Q6H PRN #30 tab 08/12/17 [Rx] Furosemide [Lasix] 20 mg PO DAILY 06/05/18 [History] Potassium Chloride [K-Tab ER] 10 meq PO DAILY 06/05/18 [History] Sertraline [Zoloft] 50 mg PO HS 06/05/18 [History] Insulin Glargine,Hum.rec.anlog [Basaglar Kwikpen U-100] 60 unit SQ HS 08/12/18 [History] Insulin Lispro [Admelog] 25 units SQ TID-W/MEALS 08/12/18 [History] Isosorbide Mononitrate [Isosorbide Mononitrate ER] 30 mg PO DAILY 08/12/18 [History] Meclizine [Antivert] 25 mg PO TID 08/12/18 [History] Metoprolol Tartrate [Lopressor] 100 mg PO BID 08/12/18 [History] Aspirin EC [Ecotrin Low Dose] 81 mg PO DAILY 10/18/18 [History] Gabapentin 600 mg PO HS 10/18/18 [History] Fenofibrate [Lofibra] 160 mg PO DAILY #90 tab 10/19/18 [Rx] Omeprazole [PriLOSEC] 40 mg PO AC-BRKFST #30 capsule. 10/19/18 [Rx] Simethicone Chew [Mylicon Chew] 80 mg PO QID #60 chewable 10/19/18 [Rx] Follow up Appointment(s)/Referral(s): Guzman Araujo MD [Primary Care Provider] - 3 Days Brock Mallory MD [STAFF PHYSICIAN] - 1 Week
[2018-12-20 19:36] VITALS: BP 159/93; PULSE 101; TEMP 98.2
[2018-12-20] MEDS ORDERED: ATORVASTATIN 80 MG TAB PO SCH (21:00)
[2018-12-20] MEDS ORDERED: SERTRALINE 50 MG TAB PO SCH (21:00)
[2018-12-20] MEDS ORDERED: INSULIN DETEMIR (LEVEMIR) 100 UNIT/ML SYR SQ SCH (21:00)
[2018-12-20] MEDS ORDERED: METOPROLOL TARTRATE 50 MG TAB PO SCH (21:00)
[2018-12-20] MEDS ORDERED: GABAPENTIN 300 MG CAP PO SCH (21:00)
[2018-12-20] MEDS ORDERED: MECLIZINE 25 MG TAB PO SCH (22:00)
[2018-12-21] MEDS ORDERED: PANTOPRAZOLE 40 MG TABLET PO SCH (07:30)
[2018-12-21] MEDS ORDERED: NON-FORMULARY DRUG (Aspirin Ec 81 MG) PO SCH (09:00)
[2018-12-21] MEDS ORDERED: FUROSEMIDE 20 MG TAB PO SCH (09:00)
[2018-12-21] MEDS ORDERED: FENOFIBRATE 160 MG TAB PO SCH (09:00)
[2018-12-21] MEDS ORDERED: ASPIRIN 325 MG TAB PO SCH (09:00)
[2018-12-21] MEDS ORDERED: ISOSORBIDE MONONITRATE ER 30 MG TAB.ER.24H PO SCH (09:00)
[2018-12-21] MEDS ORDERED: CLOPIDOGREL 75 MG TAB PO SCH (09:00)
[2018-12-21] MEDS ORDERED: POTASSIUM CHLORIDE ER 10 MEQ TAB.ER.PRT PO SCH (09:00)
== END 2018-12-20 20:50 | disposition home or self-care (01) ==
LOC: EC 10:19 → 1SOBS 13:09
PROVIDERS: ADMIT Internal Medicine; ATTEND Internal Medicine
DX: R07.89 Other chest pain (principal); E11.65 Type 2 diabetes mellitus with hyperglycemia; Z91.14 Patient's other noncompliance with medication regimen; E11.42 Type 2 diabetes mellitus with diabetic polyneuropathy; E11.319 Type 2 diabetes mellitus with unspecified diabetic retinopathy without macular edema; K21.9 Gastro-esophageal reflux disease without esophagitis; I25.10 Atherosclerotic heart disease of native coronary artery without angina pectoris; I10 Essential (primary) hypertension; E78.5 Hyperlipidemia, unspecified; G89.29 Other chronic pain; M54.5 Low back pain; K44.9 Diaphragmatic hernia without obstruction or gangrene; M19.032 Primary osteoarthritis, left wrist; M19.031 Primary osteoarthritis, right wrist; M19.042 Primary osteoarthritis, left hand; M19.041 Primary osteoarthritis, right hand; F32.9 Major depressive disorder, single episode, unspecified; E87.1 Hypo-osmolality and hyponatremia; E66.9 Obesity, unspecified; Z68.41 Body mass index [BMI] 40.0-44.9, adult; Z79.4 Long term (current) use of insulin; Z79.82 Long term (current) use of aspirin; Z79.02 Long term (current) use of antithrombotics/antiplatelets; Z79.891 Long term (current) use of opiate analgesic; Z79.899 Other long term (current) drug therapy; I25.2 Old myocardial infarction; Z87.442 Personal history of urinary calculi; Z95.5 Presence of coronary angioplasty implant and graft; Z87.81 Personal history of (healed) traumatic fracture; Z86.14 Personal history of Methicillin resistant Staphylococcus aureus infection; Z87.01 Personal history of pneumonia (recurrent); Z95.1 Presence of aortocoronary bypass graft; Z98.1 Arthrodesis status; Z87.19 Personal history of other diseases of the digestive system; Z87.891 Personal history of nicotine dependence; Z82.49 Family history of ischemic heart disease and other diseases of the circulatory system; Z82.3 Family history of stroke; Z80.9 Family history of malignant neoplasm, unspecified
CPT/HCPCS: 96374; 99285; 36415; 93005; 85379; 80053; 82550; 82009; 83735; 84484; 85025; 85610; 85730; 71101; G0378; J2270

== ENCOUNTER → 2019-01-31 | Outpatient (CLI) | payer OTHER ==
[2019-01-31 17:00] LABS: ALT 42 U/L (10-49); AST 28 U/L (14-35); Chol/HDL Ratio 5.16; Cholesterol 222 mg/dL (0-200)
== END ==
LOC: LABWHC1 07:56
PROVIDERS: ATTEND Internal Medicine Interventional Cardiology
DX: E78.2 Mixed hyperlipidemia (principal)
CPT/HCPCS: 36415; 80061; 83721; 84450; 84460

== ENCOUNTER → 2019-04-11 | Outpatient (CLI) | payer OTHER ==
[2019-04-11 23:51] LABS: Hemoglobin A1C 10.8 % (4.0-6.0)
== END | disposition home or self-care (01) ==
LOC: LABWHC1 14:30
PROVIDERS: ATTEND Internal Medicine
DX: E11.9 Type 2 diabetes mellitus without complications (principal)
CPT/HCPCS: 36415; 83036

== ENCOUNTER 2019-06-13 19:18 | Observation (INO) | payer OTHER ==
[2019-06-13] MEDS ORDERED: ASPIRIN 81 MG PO STA (19:37)
[2019-06-13] MEDS ORDERED: NITROGLYCERIN OINT 1 INCH/GM PACKET TOPICAL STA (19:37)
--- NOTE | 2019-06-13 19:39 | ED ---
General Adult HPI - General Chief complaint: Upper Respiratory Infection Stated complaint: SOB/CP Time Seen by Provider: 06/13/19 19:26 Source: patient, RN notes reviewed Mode of arrival: ambulatory Limitations: no limitations - History of Present Illness Initial comments: Patient is a pleasant 49-year-old male presenting to the emergency Department with complaints of chest congestion. Onset of symptoms was just a day or 2 ago. Patient feels like there is congestion in his chest however he is not coughing. Patient felt warm today, unclear whether or not he could've had a fever. Patient states his legs are little bit more swollen than normal. Patient does have some chest discomfort that is hard to describe. Patient states he does feel a little short of breath. - Related Data Home Medications Medication Instructions Recorded Confirmed Furosemide [Lasix] 20 mg PO DAILY 06/05/18 12/20/18 Potassium Chloride [K-Tab ER] 10 meq PO DAILY 06/05/18 12/20/18 Sertraline [Zoloft] 50 mg PO HS 06/05/18 12/20/18 Insulin Glargine,Hum.rec.anlog 60 unit SQ HS 08/12/18 12/20/18 [Basaglar Kwikpen U-100] Insulin Lispro [Admelog] 25 units SQ TID-W/MEALS 08/12/18 12/20/18 Isosorbide Mononitrate [Isosorbide 30 mg PO DAILY 08/12/18 12/20/18 Mononitrate ER] Meclizine [Antivert] 25 mg PO TID 08/12/18 12/20/18 Metoprolol Tartrate [Lopressor] 100 mg PO BID 08/12/18 12/20/18 Aspirin EC [Ecotrin Low Dose] 81 mg PO DAILY 10/18/18 12/20/18 Gabapentin 600 mg PO HS 10/18/18 12/20/18 Previous Rx's Medication Instructions Recorded Atorvastatin [Lipitor] 80 mg PO HS #30 tab 08/12/17 Clopidogrel [Plavix] 75 mg PO DAILY #30 tablet 08/12/17 HYDROcodone/APAP 10-325MG [[place] 1 - 2 tab PO Q6H PRN #30 tab 08/12/17 10-325] Fenofibrate [Lofibra] 160 mg PO DAILY #90 tab 10/19/18 Omeprazole [PriLOSEC] 40 mg PO AC-BRKFST #30 capsule. 10/19/18 Simethicone Chew [Mylicon Chew] 80 mg PO QID #60 chewable 10/19/18 Allergies Allergy/AdvReac Type Severity Reaction Status Date / Time No Known Allergies Allergy Verified 06/13/19 19:23 Review of Systems ROS Statement: Those systems with pertinent positive or pertinent negative responses have been documented in the HPI. ROS Other: All systems not noted in ROS Statement are negative. Constitutional: Reports: as per HPI Eyes: Denies: eye pain ENT: Denies: ear pain Respiratory: Reports: dyspnea. Denies: cough Cardiovascular: Reports: chest pain Endocrine: Reports: fatigue Gastrointestinal: Denies: abdominal pain Genitourinary: Denies: dysuria Musculoskeletal: Denies: back pain Skin: Denies: rash Neurological: Denies: weakness Past Medical History Past Medical History: Coronary Artery Disease (CAD), Diabetes Mellitus, GERD/Reflux, Hyperlipidemia, Hypertension, Myocardial Infarction ([place]), Osteoarthritis (OA), Pneumonia, Renal Disease Additional Past Medical History / Comment(s): NIDDM type II, chronic lumbar pain, colitis, athrtitis bilateral hands/wrists, nephrolithiasis., BILAT RETINOPATHY Last Myocardial Infarction Date:: 11/02/16, [place]-08/02/17 History of Any Multi-Drug Resistant Organisms: MRSA Date of last positivie culture/infection: 10/08/2018 MDRO Source:: left lower leg Past Surgical History: Back Surgery, Coronary Bypass/CABG, Heart Catheterization With Stent, Orthopedic Surgery Additional Past Surgical History / Comment(s): 11/02/16 PCI with stent to RCA, stent to circ, kidney stone basketing, failed L4-L5 fusions x 2, colonoscopy. 3 vessel CABG 08/02/2017, 08/2018 stent Past Anesthesia/Blood Transfusion Reactions: No Reported Reaction Date of Last Stent Placement:: 08/2018 Past Psychological History: No Psychological Hx Reported Smoking Status: Former smoker Past Alcohol Use History: None Reported Past Drug Use History: None Reported - Past Family History Father Family Medical History: Congestive Heart Failure (CHF), Coronary Artery Disease (CAD), CVA/TIA, Myocardial Infarction ([place]) Additional Family Medical History / Comment(s): Father at the age of 63 yrs. Pt doesn't recall age of father's [place]. Mother Family Medical History: Cancer Additional Family Medical History / Comment(s): Mother had multiple cancers. She is living. 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 Absent: chest wall tenderness Cardiovascular Exam: Present: normal rhythm, tachycardia GI/Abdominal exam: Present: soft. Absent: tenderness Extremities exam: Present: pedal edema (+1 bilateral). Absent: calf tenderness Neurological exam: Present: alert Psychiatric exam: Present: normal affect, normal mood Skin exam: Present: normal color Course Vital Signs 06/13/19 06/13/19 06/13/19 19:21 19:50 20:25 Temperature 98.7 F 99.6 F Pulse Rate 109 H 103 H 103 H Respiratory 18 26 H 24 Rate Blood Pressure 148/84 153/83 129/89 O2 Sat by Pulse 97 95 97 Oximetry EKG Findings - EKG Comments: EKG Findings:: Sinus tachycardia 105. PA 152. QRS 80. QT 366. QTc 43. Normal axis. Q waves in leads [address] No acute [address] change. Medical Decision Making - Medical Decision Making Patient reevaluated and resting complain bed. Patient updated on results and plan. Case was discussed with practitioner Annia, covering for Dr. blum, who will admit covering for Dr. godinez - Lab Data Result diagrams: 06/13/19 19:48 06/13/19 19:48 Lab Results 06/13/19 06/13/19 06/13/19 Range/Units 19:48 19:48 19:48 WBC 9.0 (3.8-10.6) k/uL RBC 5.22 (4.30-5.90) m/uL Hgb 16.1 (13.0-17.5) gm/dL Hct 48.1 (39.0-53.0) % MCV 92.2 (80.0-100.0) fL MCH 30.9 (25.0-35.0) pg MCHC 33.6 (31.0-37.0) g/dL RDW 14.2 (11.5-15.5) % Plt Count 160 (150-450) k/uL Neutrophils % 69 % Lymphocytes % 14 % Monocytes % 11 % Eosinophils % 2 % Basophils % 0 % Neutrophils # 6.2 (1.3-7.7) k/uL Lymphocytes # 1.3 (1.0-4.8) k/uL Monocytes # 1.0 (0-1.0) k/uL Eosinophils # 0.2 (0-0.7) k/uL Basophils # 0.0 (0-0.2) k/uL PT 9.4 (9.0-12.0) sec INR 0.9 (<1.2) APTT 18.5 L (22.0-30.0) sec D-Dimer 0.31 (<0.60) mg/L FEU Sodium 134 L (137-145) mmol/L Potassium 4.7 (3.5-5.1) mmol/L Chloride 102 (98-107) mmol/L Carbon Dioxide 24 (22-30) mmol/L Anion Gap 8 mmol/L BUN 23 H (9-20) mg/dL Creatinine 1.00 (0.66-1.25) mg/dL Est GFR (CKD-EPI)AfAm >90 (>60 ml/min/1.73 sqM) Est GFR (CKD-EPI)NonAf 89 (>60 ml/min/1.73 sqM) Glucose 324 H (74-99) mg/dL Calcium 9.1 (8.4-10.2) mg/dL Total Bilirubin 1.4 H (0.2-1.3) mg/dL AST 52 (17-59) U/L ALT 35 (4-49) U/L Alkaline Phosphatase 101 (38-126) U/L Troponin I (0.000-0.034) ng/mL NT-Pro-B Natriuret Pep pg/mL Total Protein 6.7 (6.3-8.2) g/dL Albumin 3.7 (3.5-5.0) g/dL 06/13/19 06/13/19 Range/Units 19:48 19:48 WBC (3.8-10.6) k/uL RBC (4.30-5.90) m/uL Hgb (13.0-17.5) gm/dL Hct (39.0-53.0) % MCV (80.0-100.0) fL MCH (25.0-35.0) pg MCHC (31.0-37.0) g/dL RDW (11.5-15.5) % Plt Count (150-450) k/uL Neutrophils % % Lymphocytes % % Monocytes % % Eosinophils % % Basophils % % Neutrophils # (1.3-7.7) k/uL Lymphocytes # (1.0-4.8) k/uL Monocytes # (0-1.0) k/uL Eosinophils # (0-0.7) k/uL Basophils # (0-0.2) k/uL PT (9.0-12.0) sec INR (<1.2) APTT (22.0-30.0) sec D-Dimer (<0.60) mg/L FEU Sodium (137-145) mmol/L Potassium (3.5-5.1) mmol/L Chloride (98-107) mmol/L Carbon Dioxide (22-30) mmol/L Anion Gap mmol/L BUN (9-20) mg/dL Creatinine (0.66-1.25) mg/dL Est GFR (CKD-EPI)AfAm (>60 ml/min/1.73 sqM) Est GFR (CKD-EPI)NonAf (>60 ml/min/1.73 sqM) Glucose (74-99) mg/dL Calcium (8.4-10.2) mg/dL Total Bilirubin (0.2-1.3) mg/dL AST (17-59) U/L ALT (4-49) U/L Alkaline Phosphatase (38-126) U/L Troponin I 0.023 (0.000-0.034) ng/mL NT-Pro-B Natriuret Pep 196 pg/mL Total Protein (6.3-8.2) g/dL Albumin (3.5-5.0) g/dL - Radiology Data Radiology results: image reviewed (Chest x-ray shows no acute process) Disposition Clinical Impression: Chest pain Disposition: ADMITTED IP TO THIS [facility] Is patient prescribed a controlled substance at d/c from ED?: No Referrals: Guzman Godinez MD [Primary Care Provider] - 1-2 days Decision Time: 20:57
--- NOTE | 2019-06-13 20:07 | XR ---
EXAMINATION TYPE: XR chest 2V DATE OF EXAM: 06/13/2019 COMPARISON: 10/18/2018 HISTORY: Chest pain TECHNIQUE: 2 views FINDINGS: There is no heart failure nor confluent pneumonic infiltrate. Costophrenic angles are clear . There are sternal wires. There are chest leads. Bony thorax is intact. IMPRESSION: No active cardiopulmonary disease. No change.
[2019-06-13 20:13] LABS: ALT 35 U/L (4-49); AST 52 U/L (17-59); African American GFR (CKD) >90 (>60 ml/min/1.73 sqM); Albumin 3.7 g/dL (3.5-5.0); Alkaline Phosphatase 101 U/L (38-126); Anion Gap 8 mmol/L; Blood Urea Nitrogen 23 mg/dL (9-20); Calcium 9.1 mg/dL (8.4-10.2); Carbon Dioxide 24 mmol/L (22-30); Chloride 102 mmol/L (98-107); Glucose 324 mg/dL (74-99); Non-African American GFR(CKD) 89 (>60 ml/min/1.73 sqM); Sodium 134 mmol/L (137-145); Total Bilirubin 1.4 mg/dL (0.2-1.3); Total Protein 6.7 g/dL (6.3-8.2)
[2019-06-13 20:16] LABS: Potassium 4.7 mmol/L (3.5-5.1)
[2019-06-13 20:19] LABS: Basophils % (A) 0 %; Eosinophils # (A) 0.2 k/uL (0-0.7); Eosinophils % (A) 2 %; HCT 48.1 % (39.0-53.0); HGB 16.1 gm/dL (13.0-17.5); Lymphocytes # (A) 1.3 k/uL (1.0-4.8); Lymphocytes % (A) 14 %; MCH 30.9 pg (25.0-35.0); MCHC 33.6 g/dL (31.0-37.0); MCV 92.2 fL (80.0-100.0); Mean Platelet Volume 9.8; Monocytes % (A) 11 %; Neutrophils # (A) 6.2 k/uL (1.3-7.7); Neutrophils % (A) 69 %; Platelet Count 160 k/uL (150-450); RBC 5.22 m/uL (4.30-5.90); RDW 14.2 % (11.5-15.5)
[2019-06-13 20:35] LABS: D-Dimer 0.31 mg/L FEU (<0.60); INR 0.9 (<1.2); Prothrombin Time 9.4 sec (9.0-12.0)
[2019-06-13 20:36] LABS: Partial Thromboplastin Time 18.5 sec (22.0-30.0)
[2019-06-13] MEDS ORDERED: NITROGLYCERIN SL TABS 0.4 MG TAB SUBLINGUAL PRN (20:57)
[2019-06-13 21:13] LABS: Glucose,Whole Blood 303 mg/dL (75-99)
[2019-06-13] MEDS: INSULIN ASPART (NovoLOG) 100 UNIT/ML VIAL SQ SCH (21:27)
[2019-06-13] MEDS ORDERED: GABAPENTIN 400 MG CAP PO STA (23:22)
[2019-06-13] MEDS: NITROGLYCERIN OINT 1 INCH/GM PACKET TOPICAL SCH (23:27)
[2019-06-14 02:48] LABS: Cholesterol 181 mg/dL (<200); HDL Cholesterol 34 mg/dL (40-60)
[2019-06-14 03:03] LABS: Triglycerides 688 mg/dL (<150)
[2019-06-14] MEDS: NITROGLYCERIN OINT 1 INCH/GM PACKET TOPICAL SCH (05:39)
[2019-06-14] MEDS ORDERED: FUROSEMIDE 10 MG/ML 4 ML VIAL IV STA (08:24)
[2019-06-14] MEDS: CLOPIDOGREL 75 MG TAB PO SCH (08:27)
[2019-06-14] MEDS: METOPROLOL TARTRATE 50 MG TAB PO SCH ×2 (08:27→20:25)
[2019-06-14] MEDS: ISOSORBIDE MONONITRATE ER 30 MG TAB.ER.24H PO SCH (08:27)
[2019-06-14] MEDS: ASPIRIN 81 MG PO SCH (08:27)
[2019-06-14] MEDS: MECLIZINE 25 MG TAB PO SCH ×3 (08:27→23:16)
[2019-06-14] MEDS: PANTOPRAZOLE 40 MG TABLET PO SCH ×2 (08:27→16:55)
[2019-06-14 08:34] LABS: Glucose,Whole Blood 385 mg/dL (75-99)
[2019-06-14] MEDS ORDERED: ASPIRIN 325 MG TAB PO SCH (09:00)
[2019-06-14] MEDS ORDERED: GABAPENTIN 300 MG CAP PO SCH (09:00)
[2019-06-14] MEDS ORDERED: FUROSEMIDE 20 MG TAB PO SCH (09:00)
[2019-06-14] MEDS: INSULIN ASPART (NovoLOG) 100 UNIT/ML VIAL SQ SCH ×5 (09:20→20:29)
--- NOTE | 2019-06-14 10:23 | P.CRDCN ---
History of Present Illness History of present illness: HISTORY OF PRESENTING ILLNESS This is a pleasant 49-year-old male past medical history significant for coronary artery disease status post bypass grafting and subsequent stent placement, diabetes mellitus, hypertension, dyslipidemia, former nicotine dependence and morbid obesity. He follows in the office with Dr. Mallory. We have been asked to see in consultation for chest pain. Dates for the previous few days he has been feeling increased cough and upper respiratory congestion associated with tightness in his chest. He states he feels a tight heavy sensation in his chest when he coughs or takes in a deep breath. There is no radiation to the arm, back, neck or jaw. He denies associated shortness of breath, dizziness, nausea, vomiting, palpitations or diaphoresis. He underwent cardiac catheterization August 2018 revealing patent OMALLEY to LAD, patent SVG to diagonal and patent SVG to RCA. He had severe disease involving the first OM branch of the left circumflex as well as the ramus both protected with bypasses. At that time he underwent successful stenting of the first OM branch of the circumflex. Most recent echocardiogram obtained 2017 reveals mildly impaired LV systolic function with ejection fraction 45-50%, basal inferior and basal inferior septal LV wall motion hypokinesia. DIAGNOSTICS EKG reveals sinus tachycardia, inferior Q waves heart rate of 105. Chest xray no acute cardiopulmonary process. Laboratory reviewed, CBC unremarkable, d-dimer 0.31, sodium 134, potassium 4.7, creatinine 1, lactic acid 1.3, total bilirubin 1.4, cardiac enzymes negative 3, NT proBNP 196, triglycerides 688. Current cardiac medications include aspirin 81 mg daily, atorvastatin 80 mg daily, Plavix 75 mg daily, Lasix 20 mg daily, Imdur 30 mg daily, Lopressor 100 m g twice a day and fenofibrate 145 mg at bedtime. REVIEW OF SYSTEMS At the time of my exam: CONSTITUTIONAL: Denies fever or chills. CARDIOVASCULAR: Complains of pleuritic chest pain. Denies exertional or anginal chest pain, shortness of breath, orthopnea, PND or palpitations. RESPIRATORY: Complains of congestion and cough. GASTROINTESTINAL: Denies abdominal pain, diarrhea, constipation, nausea or vomiting. MUSCULOSKELETAL: Denies myalgias. NEUROLOGIC: Denies numbness, tingling or weakness. ENDOCRINE: Denies fatigue, weight change, polydipsia or polyurina. GENITOURINARY: Denies burning, hematuria or urgency with micturation. HEMATOLOGIC: Denies history of anemia or bleeding. PHYSICAL EXAMINATION Blood pressure 117/71 heart rate 111 afebrile and maintaining oxygen saturation on room air. CONSTITUTIONAL: No apparent distress. Morbidly obese. HEENT: Head is normocephalic. Pupils are equal, round. Sclerae anicteric. Mucous membranes of the mouth are moist. No JVD. No carotid bruit. CHEST EXAMINATION: Lungs are clear to auscultation. No chest wall tenderness is noted on palpation or with deep breathing. HEART EXAMINATION: Regular rate and rhythm. S1, S2 heard. No murmurs, gallops or rub. ABDOMEN: Soft, nontender. Positive bowel sounds. EXTREMITIES: 2+ peripheral pulses, 1+ bilateral lower extremity pitting edema and no calf tenderness. NEUROLOGIC EXAMINATION: Patient is awake, alert and oriented x3. ASSESSMENT Pleuritic chest pain, atypical for angina. An acute coronary event has been ruled out. History of coronary artery disease status post bypass grafting and recent PCI of the [place] OM maintained on dual antiplatelet therapy Hypertension Dyslipidemia Diabetes mellitus Morbid obesity, BMI 44 Former nicotine dependence PLAN Chest pain is atypical and likely related to underlying respiratory illness. An acute coronary event has been ruled out. We will repeat his echocardiogram since his recent stent placement. Resume cardiac medications as previously ordered. Overall stable from a cardiac perspective. He already has an appointment scheduled to see Dr. Mallory in the office June 19. Can be discharged from a cardiac perspective. Thank you kindly for this consultation. Nurse Practitioner note has been reviewed, I agree with a documented findings and plan of care. Patient was seen and examined. Past Medical History Past Medical History: Coronary Artery Disease (CAD), Diabetes Mellitus, GERD/Reflux, Hyperlipidemia, Hypertension, Myocardial Infarction ([place]), Osteoarthritis (OA), Pneumonia, Renal Disease Additional Past Medical History / Comment(s): NIDDM type II, chronic lumbar pa in, colitis, athrtitis bilateral hands/wrists, nephrolithiasis., BILAT RETINOPATHY Last Myocardial Infarction Date:: 11/02/16, [place]-08/02/17 History of Any Multi-Drug Resistant Organisms: MRSA Date of last positivie culture/infection: 10/08/2018 MDRO Source:: left lower leg Past Surgical History: Back Surgery, Coronary Bypass/CABG, Heart Catheterization With Stent, Orthopedic Surgery Additional Past Surgical History / Comment(s): 11/02/16 PCI with stent to RCA, stent to circ, kidney stone basketing, failed L4-L5 fusions x 2, colonoscopy. 3 vessel CABG 08/02/2017, 08/2018 stent Past Anesthesia/Blood Transfusion Reactions: No Reported Reaction Date of Last Stent Placement:: 08/2018 Past Psychological History: No Psychological Hx Reported Smoking Status: Former smoker Past Alcohol Use History: None Reported Past Drug Use History: None Reported - Past Family History Father Family Medical History: Congestive Heart Failure (CHF), Coronary Artery Disease (CAD), CVA/TIA, Myocardial Infarction ([place]) Additional Family Medical History / Comment(s): Father at the age of 63 yrs. Pt doesn't recall age of father's [place]. Mother Family Medical History: Cancer Additional Family Medical History / Comment(s): Mother had multiple cancers. She is living. Medications and Allergies Home Medications Medication Instructions Recorded Confirmed Type Atorvastatin [Lipitor] 80 mg PO HS #30 tab 08/12/17 06/13/19 Rx Clopidogrel [Plavix] 75 mg PO DAILY #30 tablet 08/12/17 06/13/19 Rx Furosemide [Lasix] 20 mg PO DAILY 06/05/18 06/13/19 History Potassium Chloride [K-Tab ER] 10 meq PO DAILY 06/05/18 06/13/19 History Sertraline [Zoloft] 50 mg PO HS 06/05/18 06/13/19 History Insulin Lispro [Admelog] 30 units SQ AC-TID 08/12/18 06/13/19 History Isosorbide Mononitrate [Isosorbide 30 mg PO DAILY 08/12/18 06/13/19 History Mononitrate ER] Meclizine [Antivert] 25 mg PO TID 08/12/18 06/13/19 History Metoprolol Tartrate [Lopressor] 100 mg PO BID 08/12/18 06/13/19 History Aspirin EC [Ecotrin Low Dose] 81 mg PO DAILY 10/18/18 06/13/19 History Albuterol Inhaler [Ventolin Hfa 2 puff INHALATION RT-QID PRN 06/13/19 06/13/19 History Inhaler] Fenofibrate Nanocrystallized 145 mg PO HS 06/13/19 06/13/19 History [Fenofibrate] Fluticasone/Salmeterol 1 puff INHALATION RT-BID 06/13/19 06/13/19 History [Fluticasone-Salmeterol 232-14] Gabapentin 800 mg PO HS@2100 06/13/19 06/13/19 History Gabapentin [Neurontin] 300 mg PO BID@11,1730 06/13/19 06/13/19 History HYDROcodone/APAP 10-325MG [[place] 1 tab PO Q4H PRN 06/13/19 06/13/19 History 10-325] Insulin Glargine [Lantus] 80 unit SQ HS 06/13/19 06/13/19 History Ipratropium [place] [Atrovent Hfa] 2 puff INHALATION RT-QID PRN 06/13/19 06/13/19 History Montelukast [Singulair] 10 mg PO HS 06/13/19 06/13/19 History Omeprazole [PriLOSEC] 40 mg PO BID 06/13/19 06/13/19 History Allergies Allergy/AdvReac Type Severity Reaction Status Date / Time No Known Allergies Allergy Verified 06/13/19 22:21 Physical Exam Vitals: Vital Signs Temp Pulse Resp BP Pulse Ox 06/14/19 07:18 111 H 16 117/71 99 06/14/19 05:35 97.6 F 106 H 20 109/69 97 06/14/19 01:23 97.6 F 108 H 22 113/78 94 L 06/13/19 21:32 98.6 F 102 H 22 166/90 97 06/13/19 20:25 103 H 24 129/89 97 06/13/19 19:50 99.6 F 103 H 26 H 153/83 95 06/13/19 19:21 98.7 F 109 H 18 148/84 97 Intake and Output 06/13/19 06/14/19 06/14/19 22:59 06:59 14:59 Other: Weight 136.078 kg Results 06/13/19 19:48 06/13/19 19:48 Cardiac Enzymes 06/13/19 06/13/19 06/14/19 Range/Units 19:48 19:48 02:12 AST 52 (17-59) U/L Troponin I 0.023 0.017 (0.000-0.034) ng/mL 06/14/19 Range/Units 07:27 AST (17-59) U/L Troponin I 0.015 (0.000-0.034) ng/mL Coagulation 06/13/19 Range/Units 19:48 PT 9.4 (9.0-12.0) sec APTT 18.5 L (22.0-30.0) sec Lipids 06/14/19 Range/Units 02:12 Triglycerides 688 H (<150) mg/dL Cholesterol 181 (<200) mg/dL HDL Cholesterol 34 L (40-60) mg/dL CBC 06/13/19 Range/Units 19:48 WBC 9.0 (3.8-10.6) k/uL RBC 5.22 (4.30-5.90) m/uL Hgb 16.1 (13.0-17.5) gm/dL Hct 48.1 (39.0-53.0) % Plt Count 160 (150-450) k/uL Comprehensive Metabolic Panel 06/13/19 Range/Units 19:48 Sodium 134 L (137-145) mmol/L Potassium 4.7 (3.5-5.1) mmol/L Chloride 102 (98-107) mmol/L Carbon Dioxide 24 (22-30) mmol/L BUN 23 H (9-20) mg/dL Creatinine 1.00 (0.66-1.25) mg/dL Glucose 324 H (74-99) mg/dL Calcium 9.1 (8.4-10.2) mg/dL AST 52 (17-59) U/L ALT 35 (4-49) U/L Alkaline Phosphatase 101 (38-126) U/L Total Protein 6.7 (6.3-8.2) g/dL Albumin 3.7 (3.5-5.0) g/dL Current Medications Generic Name Dose Route Start Last Admin Trade Name Freq PRN Reason Stop Dose Admin Aspirin 81 mg 06/14/19 09:00 06/14/19 08:27 Aspirin PO 81 mg DAILY [facility] Administration Atorvastatin Calcium 80 mg 06/14/19 21:00 Lipitor PO HS [facility] Budesonide/Formoterol Fumarate 2 puff 06/14/19 20:00 Symbicort 80-4.5 Mcg Inhaler INHALATION RT-BID [facility] Clopidogrel Bisulfate 75 mg 06/14/19 09:00 06/14/19 08:27 Plavix PO 75 mg DAILY [facility] Administration Fenofibrate 160 mg 06/14/19 21:00 Lofibra PO HS [facility] Gabapentin 300 mg 06/14/19 09:00 06/14/19 08:27 Neurontin PO 300 mg BID [facility] Administration Insulin Aspart 0 unit 06/13/19 21:00 06/14/19 09:20 Novolog SQ 7 unit ACHS [facility] Administration Protocol Insulin Detemir 80 unit 06/14/19 21:00 Levemir SQ HS [facility] Isosorbide Mononitrate 30 mg 06/14/19 09:00 06/14/19 08:27 Imdur PO 30 mg DAILY [facility] Administration Meclizine HCl 25 mg 06/14/19 09:00 06/14/19 08:27 Antivert PO 25 mg TID [facility] Administration Metoprolol Tartrate 100 mg 06/14/19 09:00 06/14/19 08:27 Lopressor PO 100 mg BID [facility] Administration Montelukast Sodium 10 mg 06/14/19 21:00 Singulair PO HS [facility] Nitroglycerin 0.4 mg 06/13/19 20:57 Nitrostat SUBLINGUAL Q5M PRN Chest Pain Nitroglycerin 1 inch 06/14/19 00:00 06/14/19 05:39 Nitro-Bid Oint TOPICAL 1 inch Q6HR [facility] Administration Pantoprazole Sodium 40 mg 06/14/19 09:00 06/14/19 08:27 Protonix PO 40 mg AC-BID [facility] Administration Potassium Chloride 10 meq 06/14/19 09:00 K-Dur 10 PO DAILY [facility] Sertraline HCl 50 mg 06/14/19 21:00 Zoloft PO HS [facility] Intake and Output 06/13/19 06/14/19 06/14/19 22:59 06:59 14:59 Other: Weight 136.078 kg 06/13/19 19:48 06/13/19 19:48
[2019-06-14 11:50] VITALS: RESP 18
[2019-06-14 12:02] LABS: Glucose,Whole Blood 467 mg/dL (75-99)
[2019-06-14] MEDS: POTASSIUM CHLORIDE ER 10 MEQ TAB.ER.PRT PO SCH (12:23)
[2019-06-14 14:23] LABS: Glucose,Whole Blood 411 mg/dL (75-99)
--- NOTE | 2019-06-14 14:46 | P.HPIM ---
History of Present Illness This is a pleasant 49 years old male with past medical history of diabetes mellitus, hyperlipidemia, hypertension, diabetic neuropathy, diabetic retinopathy, arthritis of hands and back, coronary artery disease status post CABG Patient presents this time because of chest congestion, chest pain which is central, in the middle nonradiating, [id number] felt like sharp associated with some dry cough and atypical difficulty breathing. Vitals stable and patient is afebrile. CBC is unremarkable, d-dimer is negative as 0.31. Sugar is elevated 385-367. Sodium 134, creatinine 1.0, liver enzymes are normal. Influenza is negative. EKG showing 105 sinus tachycardia. Chest x-ray: No acute process by radiologist. Patient has been evaluated by automotive salesperson and cleared him for discharge. Patient states he takes insulin Lantus 70 units at night and admelog insulin which is lispro as 25 units with meals Review of Systems CONSTITUTIONAL: No fever, no malaise, no fatigue. HEENT: No recent visual problems or hearing problems. Denied any sore throat. CARDIOVASCULAR: No orthopnea, PND, no palpitations, no syncope. PULMONARY: No shortness of breath, no cough, no hemoptysis. GASTROINTESTINAL: No diarrhea, no nausea, no vomiting, no abdominal pain. Normoactive bowel sounds. NEUROLOGICAL: No headaches, no weakness, no numbness. HEMATOLOGICAL: Denies any bleeding or petechiae. GENITOURINARY: Denies any burning micturition, frequency, or urgency. MUSCULOSKELETAL/RHEUMATOLOGICAL: Denies any joint pain, swelling, or any muscle pain. ENDOCRINE: Denies any polyuria or polydipsia. Past Medical History Past Medical History: Coronary Artery Disease (CAD), Chest Pain / Angina, Diabetes Mellitus, GERD/Reflux, Hyperlipidemia, Hypertension, Myocardial Infarction ([place]), Osteoarthritis (OA), Pneumonia, Renal Disease Additional Past Medical History / Comment(s): IDDM type II, neuropathy bilateral hands/feet, retinopathy bilateral eyes, nephrolithiasis, arthritis bilateral hands/wrists, chronic lumbar back pain, vertigo at times. Last Myocardial Infarction Date:: 11/02/16, 08/02/17 History of Any Multi-Drug Resistant Organisms: MRSA Date of last positivie culture/infection: 10/08/2018 MDRO Source:: left lower leg Past Surgical History: Back Surgery, Coronary Bypass/CABG, Heart Catheterization With Stent, Orthopedic Surgery Additional Past Surgical History / Comment(s): PCI with stents, 3V CABG 07/2017, kidney stone basketing, failed L4-L5 fusion x2, colonoscopy Past Anesthesia/Blood Transfusion Reactions: No Reported Reaction Date of Last Stent Placement:: 08/2018 Smoking Status: Former smoker - Past Family History Father Family Medical History: Congestive Heart Failure (CHF), Coronary Artery Disease (CAD), CVA/TIA, Myocardial Infarction ([place]) Additional Family Medical History / Comment(s): Father at the age of 63 yrs. Pt doesn't recall age of father's [place]. Mother Family Medical History: Cancer Additional Family Medical History / Comment(s): Mother had multiple cancers. She is living. Medications and Allergies Home Medications Medication Instructions Recorded Confirmed Type Atorvastatin [Lipitor] 80 mg PO HS #30 tab 08/12/17 06/13/19 Rx Clopidogrel [Plavix] 75 mg PO DAILY #30 tablet 08/12/17 06/13/19 Rx Furosemide [Lasix] 20 mg PO DAILY 06/05/18 06/13/19 History Potassium Chloride [K-Tab ER] 10 meq PO DAILY 06/05/18 06/13/19 History Sertraline [Zoloft] 50 mg PO HS 06/05/18 06/13/19 History Insulin Lispro [Admelog] 30 units SQ AC-TID 08/12/18 06/13/19 History Isosorbide Mononitrate [Isosorbide 30 mg PO DAILY 08/12/18 06/13/19 History Mononitrate ER] Meclizine [Antivert] 25 mg PO TID 08/12/18 06/13/19 History Metoprolol Tartrate [Lopressor] 100 mg PO BID 08/12/18 06/13/19 History Aspirin EC [Ecotrin Low Dose] 81 mg PO DAILY 10/18/18 06/13/19 History Albuterol Inhaler [Ventolin Hfa 2 puff INHALATION RT-QID PRN 06/13/19 06/13/19 History Inhaler] Fenofibrate Nanocrystallized 145 mg PO HS 06/13/19 06/13/19 History [Fenofibrate] Fluticasone/Salmeterol 1 puff INHALATION RT-BID 06/13/19 06/13/19 History [Fluticasone-Salmeterol 232-14] Gabapentin 800 mg PO HS@2100 06/13/19 06/13/19 History Gabapentin [Neurontin] 300 mg PO BID@11,1730 06/13/19 06/13/19 History HYDROcodone/APAP 10-325MG [[place] 1 tab PO Q4H PRN 06/13/19 06/13/19 History 10-325] Insulin Glargine [Lantus] 80 unit SQ HS 06/13/19 06/13/19 History Ipratropium [place] [Atrovent Hfa] 2 puff INHALATION RT-QID PRN 06/13/19 06/13/19 History Montelukast [Singulair] 10 mg PO HS 06/13/19 06/13/19 History Omeprazole [PriLOSEC] 40 mg PO BID 06/13/19 06/13/19 History Allergies Allergy/AdvReac Type Severity Reaction Status Date / Time No Known Allergies Allergy Verified 06/13/19 22:21 Physical Exam Vitals: Vital Signs Temp Pulse Pulse Resp BP BP Pulse Ox 06/14/19 12:05 97.6 F 80 18 157/94 95 06/14/19 11:48 72 18 121/67 96 06/14/19 07:18 111 H 16 117/71 99 06/14/19 05:35 97.6 F 106 H 20 109/69 97 06/14/19 01:23 97.6 F 108 H 22 113/78 94 L 06/13/19 21:32 98.6 F 102 H 22 166/90 97 06/13/19 20:25 103 H 24 129/89 97 06/13/19 19:50 99.6 F 103 H 26 H 153/83 95 06/13/19 19:21 98.7 F 109 H 18 148/84 97 Intake and Output 06/13/19 06/14/19 06/14/19 22:59 06:59 14:59 Other: Voiding Method Toilet # Voids 1 Weight 136.078 kg 136.078 kg GENERAL: The patient is alert and oriented x3, not in any acute distress. Well developed, well nourished. HEENT: Pupils are round and equally reacting to light. EOMI. No scleral icterus. No conjunctival pallor. Normocephalic, atraumatic. No pharyngeal erythema. No thyromegaly. CARDIOVASCULAR: S1 and S2 present. No murmurs, rubs, or gallops. PULMONARY: Chest is clear to auscultation, no wheezing or crackles. ABDOMEN: Soft, nontender, nondistended, normoactive bowel sounds. No palpable organomegaly. MUSCULOSKELETAL: No joint swelling or deformity. EXTREMITIES: No cyanosis, clubbing, or pedal edema. NEUROLOGICAL: Gross neurological examination did not reveal any focal deficits. SKIN: No rashes. No petechiae Results CBC & Chem 7: 06/13/19 19:48 06/13/19 19:48 Labs: Abnormal Lab Results - Last 24 Hours (Table) 06/13/19 06/13/19 06/13/19 Range/Units 19:48 19:48 21:11 APTT 18.5 L (22.0-30.0) sec Sodium 134 L (137-145) mmol/L BUN 23 H (9-20) mg/dL Glucose 324 H (74-99) mg/dL POC Glucose (mg/dL) 303 H (75-99) mg/dL Total Bilirubin 1.4 H (0.2-1.3) mg/dL Triglycerides (<150) mg/dL HDL Cholesterol (40-60) mg/dL 06/14/19 06/14/19 06/14/19 Range/Units 02:12 08:30 12:00 APTT (22.0-30.0) sec Sodium (137-145) mmol/L BUN (9-20) mg/dL Glucose (74-99) mg/dL POC Glucose (mg/dL) 385 H 467 H (75-99) mg/dL Total Bilirubin (0.2-1.3) mg/dL Triglycerides 688 H (<150) mg/dL HDL Cholesterol 34 L (40-60) mg/dL 06/14/19 Range/Units 14:20 APTT (22.0-30.0) sec Sodium (137-145) mmol/L BUN (9-20) mg/dL Glucose (74-99) mg/dL POC Glucose (mg/dL) 411 H (75-99) mg/dL Total Bilirubin (0.2-1.3) mg/dL Triglycerides (<150) mg/dL HDL Cholesterol (40-60) mg/dL Thrombosis Risk Factor Assmnt - Choose All That Apply Any of the Below Risk Factors Present?: Yes Each Factor Represents 1 point: Age 41-60 years, Obesity (BMI >25) Other Risk Factors: No Other congenital or acquired thrombophilia - If yes, enter type in comment: No Thrombosis Risk Factor Assessment Total Risk Factor Score: 2 Thrombosis Risk Factor Assessment Level: Low Risk Assessment and Plan Assessment: Chest pain with chest congestion, cardiac causes have been ruled out, could be related to mild viral illness or musculoskeletal pain Diabetes mellitus, type II. Uncontrolled with hyperglycemia Diabetic neuropathy Diabetic retinopathy Hypertension Hyperlipidemia Arthritis of the hands and wrists Coronary artery disease status post CABG Chronic low back pain Morbidly obese Plan: This is a pleasant 70 years old male who presents with chest pain. Cardiology evaluated the patient and cleared him for discharge. However patient sugars are controlled going to adjust his insulin medication as comparable to his medication monitor his sugar. Labs and medication were reviewed.. Continue same treatment. Continue with symptomatic treatment. Resume home medication. Monitor lytes and vitals. DVT and GI prophylaxis. Further recommendations of the clinical course of the patient DVT prophylaxis: Subcutaneous heparin GI Prophylaxis: Pepcid PT/OT: Pending Prognosis is guarded
[2019-06-14 16:36] LABS: Glucose,Whole Blood 345 mg/dL (75-99)
[2019-06-14] MEDS: GABAPENTIN 300 MG CAP PO SCH (18:46)
[2019-06-14] MEDS: SYMBICORT 80-4.5 MCG INHALER INHALATION SCH (19:27)
[2019-06-14 20:09] LABS: Glucose,Whole Blood 336 mg/dL (75-99)
[2019-06-14] MEDS ORDERED: MONTELUKAST 10 MG TAB PO SCH (21:00)
[2019-06-14] MEDS ORDERED: ATORVASTATIN 80 MG TAB PO SCH (21:00)
[2019-06-14] MEDS ORDERED: FENOFIBRATE 160 MG TAB PO SCH (21:00)
[2019-06-14] MEDS ORDERED: GABAPENTIN 400 MG CAP PO SCH (21:00)
[2019-06-14] MEDS ORDERED: SERTRALINE 50 MG TAB PO SCH (21:00)
[2019-06-14] MEDS ORDERED: INSULIN DETEMIR (LEVEMIR) 100 UNIT/ML SYR SQ SCH (21:00)
[2019-06-15 06:09] LABS: Glucose,Whole Blood 227 mg/dL (75-99)
[2019-06-15 06:40] LABS: Glucose,Whole Blood 244 mg/dL (75-99)
[2019-06-15] MEDS: SYMBICORT 80-4.5 MCG INHALER INHALATION SCH (07:24)
[2019-06-15] MEDS: ISOSORBIDE MONONITRATE ER 30 MG TAB.ER.24H PO SCH (07:42)
[2019-06-15] MEDS: PANTOPRAZOLE 40 MG TABLET PO SCH (07:42)
[2019-06-15] MEDS: GABAPENTIN 300 MG CAP PO SCH (07:42)
[2019-06-15] MEDS: CLOPIDOGREL 75 MG TAB PO SCH (07:42)
[2019-06-15] MEDS: POTASSIUM CHLORIDE ER 10 MEQ TAB.ER.PRT PO SCH (07:42)
[2019-06-15] MEDS: INSULIN ASPART (NovoLOG) 100 UNIT/ML VIAL SQ SCH ×2 (07:43)
[2019-06-15] MEDS: ASPIRIN 81 MG PO SCH (07:43)
[2019-06-15] MEDS: MECLIZINE 25 MG TAB PO SCH (07:43)
[2019-06-15] MEDS: METOPROLOL TARTRATE 50 MG TAB PO SCH (07:43)
[2019-06-15 07:52] VITALS: BP 174/87; PULSE 90; TEMP 97.9
[2019-06-15 09:29] LABS: Glucose,Whole Blood 281 mg/dL (75-99)
--- NOTE | 2019-06-15 09:57 | P.PN ---
Subjective HISTORY OF PRESENTING ILLNESS This is a pleasant 49-year-old male past medical history significant for coronary artery disease status post bypass grafting and subsequent stent placement, diabetes mellitus, hypertension, dyslipidemia, former nicotine dependence and morbid obesity. He follows in the office with Dr. Mallory. He continues to have intermittent episodes of pleuritic chest pain. His blood sugars have been elevated and adjustments made to his insulin dosing per primary care team. Blood pressure 174/87 heart rate 90 afebrile and maintaining oxygen saturation on room air. PHYSICAL EXAMINATION CONSTITUTIONAL: No apparent distress. Morbidly obese. HEENT: Head is normocephalic. Pupils are equal, round. Sclerae anicteric. Mucous membranes of the mouth are moist. No JVD. No carotid bruit. CHEST EXAMINATION: Lungs are clear to auscultation. No chest wall tenderness is noted on palpation or with deep breathing. HEART EXAMINATION: Regular rate and rhythm. S1, S2 heard. No murmurs, gallops or rub. EXTREMITIES: 2+ peripheral pulses, 1+ bilateral lower extremity pitting edema and no calf tenderness. ASSESSMENT Pleuritic chest pain, atypical for angina. An acute coronary event has been ruled out. History of coronary artery disease status post bypass grafting and recent PCI of the chitina OM maintained on dual antiplatelet therapy Hypertension Dyslipidemia Diabetes mellitus Morbid obesity, BMI 44 Former nicotine dependence PLAN Initiate losartan 25 mg daily for optimal blood pressure control. Follow up in the office with Dr. Mallory in 2 weeks. Nurse Practitioner note has been reviewed, I agree with a documented findings and plan of care. Patient was seen and examined. Objective - Vital Signs Vital signs: Vital Signs Temp 97.9 F 06/15/19 07:35 Pulse 90 06/15/19 07:35 Resp 18 06/15/19 08:00 BP 174/87 06/15/19 07:35 Pulse Ox 96 06/15/19 07:25 Intake & Output 06/14/19 06/15/19 06/15/19 18:59 06:59 18:59 Weight 136.078 kg Other: Voiding Method Toilet Toilet Toilet # Voids 1 2 - Labs CBC & Chem 7: 06/13/19 19:48 06/13/19 19:48 Labs: Abnormal Lab Results - Last 24 Hours (Table) 06/14/19 06/14/19 06/14/19 Range/Units 07:27 12:00 14:20 POC Glucose (mg/dL) 467 H 411 H (75-99) mg/dL Hemoglobin A1c 11.0 H (4.0-6.0) % 06/14/19 06/14/19 06/15/19 Range/Units 16:34 20:07 06:08 POC Glucose (mg/dL) 345 H 336 H 227 H (75-99) mg/dL Hemoglobin A1c (4.0-6.0) % 06/15/19 06/15/19 Range/Units 06:36 09:26 POC Glucose (mg/dL) 244 H 281 H (75-99) mg/dL Hemoglobin A1c (4.0-6.0) %
[2019-06-15] MEDS ORDERED: LOSARTAN 25 MG TAB PO SCH (10:00)
--- NOTE | 2019-06-15 10:22 | P.DS ---
Providers Date of admission: 06/13/19 20:58 Attending physician: Sabas Shelton MD Consults: 06/13/19 20:57 Consult Physician Urgent Consulting Provider: Nic Cortez Consult Reason/Comments: cp Do you want consulting provider notified?: Yes Primary care physician: [facility] Course: Diagnoses: Chest pain with chest congestion, cardiac causes have been ruled out, could be related to mild viral illness or musculoskeletal pain Diabetes mellitus, type II. Uncontrolled with hyperglycemia Diabetic neuropathy Diabetic retinopathy Hypertension Hyperlipidemia Arthritis of the hands and wrists Coronary artery disease status post CABG Chronic low back pain Morbidly obese Hospital course: This is a pleasant 49 years old male with past medical history of diabetes mellitus, hyperlipidemia, hypertension, diabetic neuropathy, diabetic retinopathy, arthritis of hands and back, coronary artery disease status post CABG Patient presents this time because of chest congestion, chest pain which is central, in the middle nonradiating, [id number] felt like sharp associated with some dry cough and milld difficulty breathing. Vitals stable and patient is afebrile. CBC is unremarkable, d-dimer is negative as 0.31. Sugar is elevated 385-367. nfluenza is negative. Chest x-ray: No acute process by radiologist. Anesthesia Tech evaluated the patient and ordered an echocardiogram, Eventually patient felt better and hand alterations seamstress cleared the patient for discharge. Patient has elevated sugar 300-400s,Patient states he takes insulin Lantus 70 units at night and admelog insulin which is lispro as 25 units with meals, his long-acting insulin is increased to 80 units at night, his sugars better controlled, it was running 244-to 81 this morning, he needed extra 2 units of insulin with breakfast. And because of that I instructed the patient to increase his dose of Lantus to 85 units and states he can do that. Also patient was instructed to keep checking his sugar 4 times a day before each meal and at bedtime and to bring the result to his doctor and he agrees Patient was cleared for discharge by cardiology team, and as per my discussion with hand alterations seamstress team Problems and management plan were discussed with the patient and he verbalized understanding and acceptance Patient was found stable and can be discharged home however he needs follow-up as an outpatient. Patient was instructed to follow up with PCP within 1 to 2 days and patient agrees. Also patient was instructed to follow up with hand alterations seamstress in his appointment on 06/19/2019 and he agrees with the appoint ments and follow-up. Gen: patient is a AAOx3, no distress, obese CVS: S1-S2, RRR, no murmur Lungs: B/L CTA, no wheezing Abdomen: soft, no distention, no tenderness, positive bowel sounds Extremity: no leg edema or induration Time spent more than 35 minutes Plan - Discharge Summary Discharge Rx Participant: No New Discharge Prescriptions: Continue Atorvastatin [Lipitor] 80 mg PO HS #30 tab Clopidogrel [Plavix] 75 mg PO DAILY #30 tablet Furosemide [Lasix] 20 mg PO DAILY Potassium Chloride [K-Tab ER] 10 meq PO DAILY Sertraline [Zoloft] 50 mg PO HS Meclizine [Antivert] 25 mg PO TID Isosorbide Mononitrate [Isosorbide Mononitrate ER] 30 mg PO DAILY Metoprolol Tartrate [Lopressor] 100 mg PO BID Insulin Lispro [Admelog] 30 units SQ AC-TID Aspirin EC [Ecotrin Low Dose] 81 mg PO DAILY Albuterol Inhaler [Ventolin Hfa Inhaler] 2 puff INHALATION RT-QID PRN PRN Reason: Shortness Of Breath Ipratropium [place] [Atrovent Hfa] 2 puff INHALATION RT-QID PRN PRN Reason: Shortness Of Breath Fluticasone/Salmeterol [Fluticasone-Salmeterol 232-14] 1 puff INHALATION RT- BID Montelukast [Singulair] 10 mg PO HS Omeprazole [PriLOSEC] 40 mg PO BID Gabapentin [Neurontin] 300 mg PO BID@11,1730 Gabapentin 800 mg PO HS@2100 HYDROcodone/APAP 10-325MG [[place] 10-325] 1 tab PO Q4H PRN PRN Reason: Pain Fenofibrate Nanocrystallized [Fenofibrate] 145 mg PO HS Changed Insulin Glargine [Lantus] 85 unit SQ HS #0 Discharge Medication List Atorvastatin [Lipitor] 80 mg PO HS #30 tab 08/12/17 [Rx] Clopidogrel [Plavix] 75 mg PO DAILY #30 tablet 08/12/17 [Rx] Furosemide [Lasix] 20 mg PO DAILY 06/05/18 [History] Potassium Chloride [K-Tab ER] 10 meq PO DAILY 06/05/18 [History] Sertraline [Zoloft] 50 mg PO HS 06/05/18 [History] Insulin Lispro [Admelog] 30 units SQ AC-TID 08/12/18 [History] Isosorbide Mononitrate [Isosorbide Mononitrate ER] 30 mg PO DAILY 08/12/18 [History] Meclizine [Antivert] 25 mg PO TID 08/12/18 [History] Metoprolol Tartrate [Lopressor] 100 mg PO BID 08/12/18 [History] Aspirin EC [Ecotrin Low Dose] 81 mg PO DAILY 10/18/18 [History] Albuterol Inhaler [Ventolin Hfa Inhaler] 2 puff INHALATION RT-QID PRN 06/13/19 [History] Fenofibrate Nanocrystallized [Fenofibrate] 145 mg PO HS 06/13/19 [History] Fluticasone/Salmeterol [Fluticasone-Salmeterol 232-14] 1 puff INHALATION RT-BID 06/13/19 [History] Gabapentin 800 mg PO HS@2100 06/13/19 [History] Gabapentin [Neurontin] 300 mg PO BID@11,1730 06/13/19 [History] HYDROcodone/APAP 10-325MG [[place] 10-325] 1 tab PO Q4H PRN 06/13/19 [History] Ipratropium [place] [Atrovent Hfa] 2 puff INHALATION RT-QID PRN 06/13/19 [History] Montelukast [Singulair] 10 mg PO HS 06/13/19 [History] Omeprazole [PriLOSEC] 40 mg PO BID 06/13/19 [History] Insulin Glargine [Lantus] 85 unit SQ HS #0 06/15/19 [Rx] Follow up Appointment(s)/Referral(s): Guzman Araujo MD [Primary Care Provider] - 1-2 days Brock Mallory MD [STAFF PHYSICIAN] - 06/19/19 Discharge Disposition: HOME SELF-CARE
--- NOTE | 2019-06-15 12:59 | ECHOF ---
Referral Reason:sob MEASUREMENTS -------- HEIGHT: 175.3 cm WEIGHT: 136.1 kg BP: 117/71 RVIDd: 3.2 cm (< 3.3) IVSd: 1.6 cm (0.6 - 1.1) LVIDd: 4.7 cm (3.9 - 5.3) LVPWd: 1.5 cm (0.6 - 1.1) IVSs: 1.8 cm LVIDs: 3.2 cm LVPWs: 1.9 cm LA Diam: 3.9 cm (2.7 - 3.8) Ao Diam: 3.3 cm (2.0 - 3.7) AV Cusp: 1.7 cm (1.5 - 2.6) LA Diam: 4.2 cm (2.7 - 3.8) MV EXCURSION: 19.783 mm (> 18.000) MV EF SLOPE: 77 mm/s (70 - 150) EPSS: 0.4 cm MV E Flaco: 0.67 m/s MV DecT: 139 ms MV A Flaco: 0.68 m/s MV E/A Ratio: 0.99 RAP: 5.00 mmHg FINDINGS -------- Sinus rhythm. Morbid Obesity This was a techncally difficult study with suboptimal views, , Lumason utilized for enhancement of images. The left ventricular size is normal. There is moderate concentric left ventricular hypertrophy. O verall left ventricular systolic function is low-normal with, an EF between 50 - 55 %. The diastoli c filling pattern is normal for the age of the patient 11.31. The right ventricle is normal in size. Paradoxical motion of the right ventricular septum is consis tent with post operative status. The left atrial size is normal. The right atrial size is normal. 5.0mg OF Lumason UTLIZED: 2 OR MORE WALL SEGMENTS NOT VISUALIZED. There is mild aortic valve sclerosis. There is no evidence of aortic regurgitation. Mild mitral annular calcification present. Mild mitral regurgitation is present. Mild tricuspid regurgitation present. Right ventricular systolic pressure is normal at < 35 mmHg. There is no evidence of pulmonary hypertension. The pulmonic valve was not well visualized. The aortic root size is normal. There is no pericardial effusion. CONCLUSIONS -------- 1. Sinus rhythm. 2. Morbid Obesity 3. This was a techncally difficult study with suboptimal views, , Lumason utilized for enhancement of images. 4. The left ventricular size is normal. 5. There is moderate concentric left ventricular hypertrophy. 6. Overall left ventricular systolic function is low-normal with, an EF between 50 - 55 %. 7. The diastolic filling pattern is normal for the age of the patient 11.31 8. The right ventricle is normal in size. 9. Paradoxical motion of the right ventricular septum is consistent with post operative status. 10. The left atrial size is normal. 11. The right atrial size is normal. 12. 5.0mg OF Lumason UTLIZED: 2 OR MORE WALL SEGMENTS NOT VISUALIZED. 13. There is mild aortic valve sclerosis. 14. Mild mitral annular calcification present. 15. Mild mitral regurgitation is present. 16. Right ventricular systolic pressure is normal at < 35 mmHg. 17. There is no evidence of pulmonary hypertension. 18. The pulmonic valve was not well visualized. 19. The aortic root size is normal. 20. There is no pericardial effusion. STORE OPERATIONS SPECIALIST: Ginette Aguilar RDCS
== END 2019-06-15 10:00 | disposition home or self-care (01) ==
LOC: EC 19:18 → 1SOBS 20:58
PROVIDERS: ADMIT Internal Medicine; ATTEND Internal Medicine
DX: R07.9 Chest pain, unspecified (principal); I25.10 Atherosclerotic heart disease of native coronary artery without angina pectoris; Z95.1 Presence of aortocoronary bypass graft; Z95.5 Presence of coronary angioplasty implant and graft; E11.40 Type 2 diabetes mellitus with diabetic neuropathy, unspecified; E11.65 Type 2 diabetes mellitus with hyperglycemia; E11.319 Type 2 diabetes mellitus with unspecified diabetic retinopathy without macular edema; K21.9 Gastro-esophageal reflux disease without esophagitis; E78.5 Hyperlipidemia, unspecified; I10 Essential (primary) hypertension; I25.2 Old myocardial infarction; M19.90 Unspecified osteoarthritis, unspecified site; G89.29 Other chronic pain; M54.5 Low back pain; M19.042 Primary osteoarthritis, left hand; M19.041 Primary osteoarthritis, right hand; Z86.14 Personal history of Methicillin resistant Staphylococcus aureus infection; E66.01 Morbid (severe) obesity due to excess calories; Z68.41 Body mass index [BMI] 40.0-44.9, adult; Z87.891 Personal history of nicotine dependence; Z98.1 Arthrodesis status; Z82.3 Family history of stroke; Z80.8 Family history of malignant neoplasm of other organs or systems; Z82.49 Family history of ischemic heart disease and other diseases of the circulatory system; Z79.82 Long term (current) use of aspirin; Z79.4 Long term (current) use of insulin; Z79.899 Other long term (current) drug therapy
CPT/HCPCS: 93005 ×2; 96374; 99284; 36415; 94640 ×2; 94760; 85379; 83880; 80061; 80053; 83605; 84484 ×2; 85025; 85610; 85730; 87502; 83036; 71046; G0378 ×3; C8929; J1940; Q9950; 93306

== ENCOUNTER → 2019-07-12 | Outpatient (CLI) | payer OTHER ==
--- NOTE | 2019-07-12 10:20 | US ---
EXAMINATION TYPE: US abdomen complete DATE OF EXAM: 07/12/2019 COMPARISON: NONE CLINICAL HISTORY: R10.11 RUQ pain. Patient morbidly obese. EXAM MEASUREMENTS: Liver Length: 19.0 cm Gallbladder Wall: 0.2 cm CBD: 0.4 cm Spleen: 13.6 cm Right Kidney: 13.7 x 6.0 x 6.1 cm Left Kidney: 13.8 x 6.6 x 5.9 cm Patient morbidly obese with extensive overlying bowel gas. Technically difficult, limited study. Pancreas: wnl Liver: irregular shaped hypoechoic mass in left lobe, focal fatty sparing, unable to penetrate, enla rged Gallbladder: wnl, limited views Evidence for sonographic St's sign: no CBD: wnl Spleen: measures large Right Kidney: measures large Left Kidney: measures large Upper IVC: not seen Abd Aorta: mostly obscured by obesity and overlying bowel gas IMPRESSION: 1. Hepatosplenomegaly. 2. There is increased echo pattern which is coarsened of the liver correlate for hepatic steatosis. T here is a hypoechoic area within the left lobe of the liver. CT scan recommended to assess for mass v ersus localized fatty sparing. Recent CT of the chest only partially included liver but demonstrated an anterior abdominal wall hernia containing portions of the liver.
== END | disposition home or self-care (01) ==
LOC: RADUSMAIN 08:57
PROVIDERS: ATTEND Internal Medicine
DX: R16.2 Hepatomegaly with splenomegaly, not elsewhere classified (principal); R93.2 Abnormal findings on diagnostic imaging of liver and biliary tract
CPT/HCPCS: 76700

== ENCOUNTER 2019-12-24 17:42 | Observation (INO) | payer OTHER ==
[2019-12-24] MEDS ORDERED: ASPIRIN 81 MG PO STA (17:53)
[2019-12-24] MEDS ORDERED: NITROGLYCERIN SL TABS 0.4 MG TAB SUBLINGUAL STA ×3 (17:53)
--- NOTE | 2019-12-24 17:56 | ED ---
General Adult HPI - General Chief complaint: Chest Pain Stated complaint: Chest Pain Time Seen by Provider: 12/24/19 17:47 Source: patient, RN notes reviewed, old records reviewed Mode of arrival: ambulatory Limitations: no limitations - History of Present Illness Initial comments: Patient is a pleasant 49-year-old male presenting to the emergency Department with chest discomfort. Onset of symptoms was a couple of hours ago. Discomfort is 5/10. Discomfort feels like an ache or no radiation. Patient does have some exertional dyspnea over the past month. No dyspnea at rest. No nausea or diaphoresis. Patient has mild leg swelling which is chronic for him. Patient does have history of previous PA however symptoms do not feel similar to this. Patient does have history of hiatal hernia. - Related Data Home Medications Medication Instructions Recorded Confirmed Furosemide [Lasix] 20 mg PO DAILY 06/05/18 06/13/19 Potassium Chloride [K-Tab ER] 10 meq PO DAILY 06/05/18 06/13/19 Sertraline [Zoloft] 50 mg PO HS 06/05/18 06/13/19 Insulin Lispro [Admelog] 30 units SQ AC-TID 08/12/18 06/13/19 Isosorbide Mononitrate [Isosorbide 30 mg PO DAILY 08/12/18 06/13/19 Mononitrate ER] Meclizine [Antivert] 25 mg PO TID 08/12/18 06/13/19 Metoprolol Tartrate [Lopressor] 100 mg PO BID 08/12/18 06/13/19 Aspirin EC [Ecotrin Low Dose] 81 mg PO DAILY 10/18/18 06/13/19 Albuterol Inhaler (Mhu) [Ventolin 2 puff INHALATION RT-QID PRN 06/13/19 06/13/19 Hfa Inhaler (Mhu)] Fenofibrate Nanocrystallized 145 mg PO HS 06/13/19 06/13/19 [Fenofibrate] Fluticasone/Salmeterol 1 puff INHALATION RT-BID 06/13/19 06/13/19 [Fluticasone-Salmeterol 232-14] Gabapentin 800 mg PO HS@2100 06/13/19 06/13/19 Gabapentin [Neurontin] 300 mg PO BID@111730 06/13/19 06/13/19 HYDROcodone/APAP 10-325MG [[place] 1 tab PO Q4H PRN 06/13/19 06/13/19 10-325] Ipratropium [place] [Atrovent Hfa] 2 puff INHALATION RT-QID PRN 06/13/19 06/13/19 Montelukast [Singulair] 10 mg PO HS 06/13/19 06/13/19 Omeprazole [PriLOSEC] 40 mg PO BID 06/13/19 06/13/19 Previous Rx's Medication Instructions Recorded Atorvastatin [Lipitor] 80 mg PO HS #30 tab 08/12/17 Clopidogrel [Plavix] 75 mg PO DAILY #30 tablet 08/12/17 Insulin Glargine [Lantus] 85 unit SQ HS #0 06/15/19 Allergies Allergy/AdvReac Type Severity Reaction Status Date / Time No Known Allergies Allergy Verified 12/24/19 17:47 Review of Systems ROS Statement: Those systems with pertinent positive or pertinent negative responses have been documented in the HPI. ROS Other: All systems not noted in ROS Statement are negative. Constitutional: Denies: fever Eyes: Denies: eye pain ENT: Denies: ear pain Respiratory: Reports: as per HPI, dyspnea. Denies: cough Endocrine: Denies: fatigue Gastrointestinal: Denies: abdominal pain Genitourinary: Denies: dysuria Musculoskeletal: Denies: back pain Skin: Denies: rash Neurological: Denies: weakness Past Medical History Past Medical History: Coronary Artery Disease (CAD), Chest Pain / Angina, Diabetes Mellitus, GERD/Reflux, Hyperlipidemia, Hypertension, Myocardial Infarc tion (PA), Osteoarthritis (OA), Pneumonia, Renal Disease Additional Past Medical History / Comment(s): IDDM type II, neuropathy bilateral hands/feet, retinopathy bilateral eyes, nephrolithiasis, arthritis bilateral hands/wrists, chronic lumbar back pain, vertigo at times. Last Myocardial Infarction Date:: 11/02/16, 08/02/17 History of Any Multi-Drug Resistant Organisms: MRSA Date of last positivie culture/infection: 10/08/2018 MDRO Source:: left lower leg Past Surgical History: Back Surgery, Coronary Bypass/CABG, Heart Catheterization With Stent, Orthopedic Surgery Additional Past Surgical History / Comment(s): PCI with stents, 3V CABG 07/2017, kidney stone basketing, failed L4-L5 fusion x2, colonoscopy Past Anesthesia/Blood Transfusion Reactions: No Reported Reaction Date of Last Stent Placement:: 08/2018 Past Psychological History: No Psychological Hx Reported Smoking Status: Never smoker Past Alcohol Use History: None Reported Past Drug Use History: None Reported - Past Family History Father Family Medical History: Congestive Heart Failure (CHF), Coronary Artery Disease (CAD), CVA/TIA, Myocardial Infarction (PA) Additional Family Medical History / Comment(s): Father at the age of 63 yrs. Pt doesn't recall age of father's PA. Mother Family Medical History: Cancer Additional Family Medical History / Comment(s): Mother had multiple cancers. She is living. General Exam Limitations: no limitations General appearance: alert, in no apparent distress Head exam: Present: normocephalic Eye exam: Present: normal appearance Neck exam: Present: normal inspection Respiratory exam: Present: normal lung sounds bilaterally, chest wall tenderness (Mild tenderness lower sternal region) Cardiovascular Exam: Present: regular rate, normal rhythm Expanded Peripheral pulses: 2+: Radial (R), Radial (L), Dorsalis Pedis (R), Dorsalis Pedis (L) GI/Abdominal exam: Present: soft. Absent: tenderness Extremities exam: Present: normal inspection, pedal edema (+1 bilateral). Absent: calf tenderness Neurological exam: Present: alert Psychiatric exam: Present: normal affect, normal mood Skin exam: Present: normal color Course Vital Signs 12/24/19 12/24/19 12/24/19 17:44 18:18 18:24 Temperature 98.2 F Pulse Rate 63 74 77 Respiratory 16 18 18 Rate Blood Pressure 156/86 118/70 120/69 O2 Sat by Pulse 98 96 96 Oximetry 12/24/19 12/24/19 18:30 19:25 Temperature 97.9 F Pulse Rate 77 78 Respiratory 18 19 Rate Blood Pressure 125/74 123/65 O2 Sat by Pulse 96 94 L Oximetry EKG Findings - EKG Comments: EKG Findings:: Normal sinus rhythm 76. CO 158. QRS 92. QT 398 QTC 447. Normal axis. Inferior Q waves. No acute ST change. Medical Decision Making - Medical Decision Making Patient reevaluated and resting comfortably at bedside. Symptoms improved. Patient updated on results and plan. Case was discussed with Dr. Soriano who did evaluate the patient and will admit. - Lab Data Result diagrams: 12/24/19 18:37 12/24/19 18:37 Lab Results 12/24/19 12/24/19 12/24/19 Range/Units 18:37 18:37 18:37 WBC 6.7 (3.8-10.6) k/uL RBC 4.65 (4.30-5.90) m/uL Hgb 14.6 (13.0-17.5) gm/dL Hct 45.2 (39.0-53.0) % MCV 97.2 (80.0-100.0) fL MCH 31.4 (25.0-35.0) pg MCHC 32.3 (31.0-37.0) g/dL RDW 14.4 (11.5-15.5) % Plt Count 181 (150-450) k/uL Neutrophils % 64 % Lymphocytes % 18 % Monocytes % 10 % Eosinophils % 3 % Basophils % 1 % Neutrophils # 4.3 (1.3-7.7) k/uL Lymphocytes # 1.2 (1.0-4.8) k/uL Monocytes # 0.7 (0-1.0) k/uL Eosinophils # 0.2 (0-0.7) k/uL Basophils # 0.0 (0-0.2) k/uL PT 9.4 (9.0-12.0) sec INR 0.9 (<1.2) APTT 23.0 (22.0-30.0) sec D-Dimer 0.28 (<0.60) mg/L FEU Sodium 136 L (137-145) mmol/L Potassium 5.2 H (3.5-5.1) mmol/L Chloride 106 (98-107) mmol/L Carbon Dioxide 27 (22-30) mmol/L Anion Gap 3 mmol/L BUN 45 H (9-20) mg/dL Creatinine 1.25 (0.66-1.25) mg/dL Est GFR (CKD-EPI)AfAm 79 (>60 ml/min/1.73 sqM) Est GFR (CKD-EPI)NonAf 68 (>60 ml/min/1.73 sqM) Glucose 272 H (74-99) mg/dL Calcium 9.2 (8.4-10.2) mg/dL Magnesium 1.8 (1.6-2.3) mg/dL Total Bilirubin 0.7 (0.2-1.3) mg/dL AST 42 (17-59) U/L ALT 38 (4-49) U/L Alkaline Phosphatase 67 (38-126) U/L Troponin I (0.000-0.034) ng/mL NT-Pro-B Natriuret Pep pg/mL Total Protein 5.9 L (6.3-8.2) g/dL Albumin 3.3 L (3.5-5.0) g/dL Amylase <30 L (30-110) U/L Lipase 231 (23-300) U/L 12/24/19 12/24/19 Range/Units 18:37 18:37 WBC (3.8-10.6) k/uL RBC (4.30-5.90) m/uL Hgb (13.0-17.5) gm/dL Hct (39.0-53.0) % MCV (80.0-100.0) fL MCH (25.0-35.0) pg MCHC (31.0-37.0) g/dL RDW (11.5-15.5) % Plt Count (150-450) k/uL Neutrophils % % Lymphocytes % % Monocytes % % Eosinophils % % Basophils % % Neutrophils # (1.3-7.7) k/uL Lymphocytes # (1.0-4.8) k/uL Monocytes # (0-1.0) k/uL Eosinophils # (0-0.7) k/uL Basophils # (0-0.2) k/uL PT (9.0-12.0) sec INR (<1.2) APTT (22.0-30.0) sec D-Dimer (<0.60) mg/L FEU Sodium (137-145) mmol/L Potassium (3.5-5.1) mmol/L Chloride (98-107) mmol/L Carbon Dioxide (22-30) mmol/L Anion Gap mmol/L BUN (9-20) mg/dL Creatinine (0.66-1.25) mg/dL Est GFR (CKD-EPI)AfAm (>60 ml/min/1.73 sqM) Est GFR (CKD-EPI)NonAf (>60 ml/min/1.73 sqM) Glucose (74-99) mg/dL Calcium (8.4-10.2) mg/dL Magnesium (1.6-2.3) mg/dL Total Bilirubin (0.2-1.3) mg/dL AST (17-59) U/L ALT (4-49) U/L Alkaline Phosphatase (38-126) U/L Troponin I <0.012 (0.000-0.034) ng/mL NT-Pro-B Natriuret Pep 201 pg/mL Total Protein (6.3-8.2) g/dL Albumin (3.5-5.0) g/dL Amylase (30-110) U/L Lipase (23-300) U/L - Radiology Data Radiology results: image reviewed (Chest x-ray shows no acute process) Disposition Clinical Impression: Chest pain Disposition: ADMITTED IP TO THIS HOSP Is patient prescribed a controlled substance at d/c from ED?: No Referrals: Guzman Araujo MD [Primary Care Provider] - 1-2 days Decision Time: 19:48
--- NOTE | 2019-12-24 18:44 | XR ---
EXAMINATION TYPE: XR chest 2V DATE OF EXAM: 12/24/2019 COMPARISON: June 13, 2019 HISTORY: Chest pain TECHNIQUE: 2 views FINDINGS: There is no heart failure nor confluent pneumonic infiltrate. There is coarsening of the in terstitial markings. There are sternal wires. There are chest leads. There is no pleural effusion. IMPRESSION: Minimal pulmonary fibrotic changes. No acute lung disease. No change.
[2019-12-24 18:53] LABS: Basophils % (A) 1 %; Eosinophils # (A) 0.2 k/uL (0-0.7); Eosinophils % (A) 3 %; HCT 45.2 % (39.0-53.0); HGB 14.6 gm/dL (13.0-17.5); Lymphocytes # (A) 1.2 k/uL (1.0-4.8); Lymphocytes % (A) 18 %; MCH 31.4 pg (25.0-35.0); MCHC 32.3 g/dL (31.0-37.0); MCV 97.2 fL (80.0-100.0); Mean Platelet Volume 9.6; Monocytes # (A) 0.7 k/uL (0-1.0); Monocytes % (A) 10 %; Neutrophils # (A) 4.3 k/uL (1.3-7.7); Neutrophils % (A) 64 %; Platelet Count 181 k/uL (150-450); RBC 4.65 m/uL (4.30-5.90); RDW 14.4 % (11.5-15.5); WBC 6.7 k/uL (3.8-10.6)
[2019-12-24 18:59] LABS: ALT 38 U/L (4-49); AST 42 U/L (17-59); African American GFR (CKD) 79 (>60 ml/min/1.73 sqM); Albumin 3.3 g/dL (3.5-5.0); Alkaline Phosphatase 67 U/L (38-126); Amylase <30 U/L (30-110); Anion Gap 3 mmol/L; Blood Urea Nitrogen 45 mg/dL (9-20); Calcium 9.2 mg/dL (8.4-10.2); Carbon Dioxide 27 mmol/L (22-30); Chloride 106 mmol/L (98-107); Glucose 272 mg/dL (74-99); Magnesium 1.8 mg/dL (1.6-2.3); Non-African American GFR(CKD) 68 (>60 ml/min/1.73 sqM); Sodium 136 mmol/L (137-145); Total Bilirubin 0.7 mg/dL (0.2-1.3); Total Protein 5.9 g/dL (6.3-8.2)
[2019-12-24] MEDS ORDERED: TEMAZEPAM 15 MG CAP PO PRN (19:03)
[2019-12-24] MEDS ORDERED: ALPRAZolam 0.25 MG TAB PO PRN (19:03)
[2019-12-24] MEDS ORDERED: HYDROcodone/APAP 5-325MG 1 EACH TAB PO PRN (19:03)
[2019-12-24 19:04] LABS: Potassium 5.2 mmol/L (3.5-5.1)
[2019-12-24 19:09] LABS: D-Dimer 0.28 mg/L FEU (<0.60); INR 0.9 (<1.2); Prothrombin Time 9.4 sec (9.0-12.0)
[2019-12-24] MEDS ORDERED: NITROGLYCERIN SL TABS 0.4 MG TAB SUBLINGUAL PRN (19:48)
[2019-12-24 20:23] VITALS: RESP 18
[2019-12-24] MEDS ORDERED: MONTELUKAST 10 MG TAB PO SCH (21:00)
[2019-12-24] MEDS ORDERED: MECLIZINE 25 MG TAB PO PRN (21:03)
[2019-12-24] MEDS ORDERED: ALBUTEROL NEBULIZED 2.5 MG/3 ML INHALATION PRN (21:03)
[2019-12-24] MEDS ORDERED: HYDROcodone/APAP 10-325MG 1 EACH TAB PO PRN (21:03)
[2019-12-24] MEDS ORDERED: ATORVASTATIN 80 MG TAB PO SCH (21:15)
[2019-12-24] MEDS ORDERED: SERTRALINE 50 MG TAB PO SCH (21:15)
[2019-12-24] MEDS: HYDROmorphone 0.5 MG/0.5 ML SYRINGE IVP PRN (22:12)
[2019-12-24 22:43] LABS: Glucose,Whole Blood 278 mg/dL (75-99)
[2019-12-24] MEDS: INSULIN ASPART (NovoLOG) 100 UNIT/ML VIAL SQ SCH ×2 (22:47→22:49)
[2019-12-24] MEDS: NITROGLYCERIN OINT 1 INCH/GM PACKET TOPICAL SCH (23:53)
--- NOTE | 2019-12-25 02:31 | HP ---
HISTORY AND PHYSICAL DATE OF SERVICE: 12/24/2019 CHIEF COMPLAINT: Chest pain. HISTORY OF PRESENT ILLNESS: This 49-year-old gentleman with a past medical history of multiple medical problems including CAD, CABG, stent, history of diabetes type 2, history of GERD, hyperlipidemia, hypertension, myocardial function being followed by Dr. Araujo in the outpatient setting was complaining of chest pain this morning. The pain was mild to moderate in intensity and felt in the retrosternal area. The patient is concerned because patient had similar pain previously and resulted in cardiac stents. The sensation was felt as an ache without any radiation. There was some exertional dyspnea complained of. Otherwise, there was palpitation, any diaphoresis. There is no history of any fever, rigors. The patient was taken to [facility] and admitted for further evaluation and treatment. The patient also has history of hiatal hernia. Initial EKG showed ST-T changes. There is no history of fever, rigors. No history headache, loss of consciousness or seizures. PAST MEDICAL HISTORY: History of CAD, CABG, stent, diabetes mellitus type 2, GERD, hypertension, hyperlipidemia, myocardial infarction. MEDICATIONS: Medications prior to admission include home medications include: 1. Zoloft. 2. K-Tab. 3. Prilosec. 4. Singulair. 5. Lopressor. 6. Antivert. 7. Imdur. 8. Atrovent. 9. Insulin Lantus. 10.Neurontin. 11.Gabapentin. 12.Lasix. 13.Fluticasone/salmeterol. 14.Fenofibrate. 15.Plavix. 16.Lipitor. 17.Aspirin. 18.Albuterol. Doses are reviewed. ALLERGIES: None. FAMILY HISTORY: History of CHF, COPD, CVA/TIA. SOCIAL HISTORY: Previous history of smoking. Occasional alcohol intake. REVIEW OF SYSTEMS: ENT: No diminished hearing or diminished vision. CARDIOVASCULAR SYSTEM: As mentioned earlier. RESPIRATORY SYSTEM: As mentioned earlier. GI: As mentioned earlier. : No dysuria. NERVOUS SYSTEM: No numbness or weakness. ALLERGY/IMMUNOLOGY: No asthma or hayfever. MUSCULOSKELETAL: As mentioned earlier. HEMATOLOGY/ONCOLOGY: No history of anemia. ENDOCRINE: Diabetes. CONSTITUTIONAL: As mentioned earlier. DERMATOLOGY: Negative. RHEUMATOLOGY: Negative. PSYCHIATRY: As mentioned earlier. PHYSICAL EXAMINATION: The patient is alert and oriented x3. Pulse 77, blood pressure 125/74, respiration 18, temperature 98.2, pulse ox 96% on room air. HEENT: Conjunctivae normal. Oral mucosa moist. NECK: No jugular venous distention. No carotid bruit. No lymph node enlargement. CARDIOVASCULAR: S1, S2 muffled. No S3, no S4. RESPIRATORY: Breath sounds diminished at the bases. No rhonchi, no crackles. ABDOMEN: Soft, nontender, obese. No mass palpable. LEGS: No edema, no swelling. NERVOUS SYSTEM: Higher function as mentioned earlier. Moves all 4 limbs. No focal motor or sensory deficits. LYMPHATICS: No lymphadenopathy of the neck, axillae or groin. SKIN: No ulcer, rash or bleeding. JOINTS: No active deforming arthropathy. LABS: CBC within normal limits. ASSESSMENT: 1. Chest pain, possible unstable angina. 2. History of coronary artery disease, coronary artery bypass grafting, stent. 3. Diabetes mellitus type 2. 4. Gastroesophageal reflux disease. 5. Hypertension. 6. Hyperlipidemia. 7. Myocardial infarction. 8. History of degenerative joint disease. 9. neuropathy. 10.History of nephrolithiasis. 11.History of degenerative joint disease. 12.History of MRSA. 13.History of nicotine dependence. 14.Obesity with body mass index of 45.3. 15.FULL CODE. RECOMMENDATIONS AND DISCUSSION: This 49-year-old gentleman who presented with multiple complex medical issues, we will monitor the patient closely. Continue the current medications, continue symptomatic treatment. Otherwise, rule out myocardial infarction, cardiology consultation. Symptomatic treatment. Otherwise, we will follow the patient closely with Cardiology. Possible stress test. Guarded prognosis. Further recommendations to follow. A copy of dictation forwarded to Dr. Araujo who is the primary physician. MMODL / IJN: [id number] / MTDD
[2019-12-25] MEDS: HYDROmorphone 0.5 MG/0.5 ML SYRINGE IVP PRN ×2 (04:01→10:24)
[2019-12-25] MEDS: NITROGLYCERIN OINT 1 INCH/GM PACKET TOPICAL SCH ×2 (04:57→12:07)
[2019-12-25 06:31] LABS: Glucose,Whole Blood 303 mg/dL (75-99)
[2019-12-25] MEDS: INSULIN ASPART (NovoLOG) 100 UNIT/ML VIAL SQ SCH ×2 (06:45→12:06)
[2019-12-25 08:35] LABS: African American GFR (CKD) >90 (>60 ml/min/1.73 sqM); Anion Gap 2 mmol/L; Blood Urea Nitrogen 41 mg/dL (9-20); Carbon Dioxide 28 mmol/L (22-30); Chloride 107 mmol/L (98-107); Cholesterol 189 mg/dL (<200); Glucose 288 mg/dL (74-99); HDL Cholesterol 36 mg/dL (40-60); Non-African American GFR(CKD) 81 (>60 ml/min/1.73 sqM); Potassium 4.9 mmol/L (3.5-5.1); Sodium 137 mmol/L (137-145); Triglycerides 405 mg/dL (<150)
[2019-12-25 08:41] LABS: HCT 42.7 % (39.0-53.0); HGB 13.7 gm/dL (13.0-17.5); MCH 31.2 pg (25.0-35.0); MCV 97.6 fL (80.0-100.0); Mean Platelet Volume 9.3; Platelet Count 130 k/uL (150-450); RBC 4.37 m/uL (4.30-5.90); RDW 14.5 % (11.5-15.5); WBC 5.4 k/uL (3.8-10.6)
[2019-12-25] MEDS ORDERED: ASPIRIN 325 MG TAB PO SCH (09:00)
[2019-12-25] MEDS ORDERED: FUROSEMIDE 20 MG TAB PO SCH (09:00)
[2019-12-25] MEDS ORDERED: PANTOPRAZOLE 40 MG/10 ML VIAL IVP SCH (09:00)
[2019-12-25] MEDS ORDERED: NON FORMULARY DRUG (Omeprazole 40 MG) PO SCH (09:00)
[2019-12-25] MEDS ORDERED: CLOPIDOGREL 75 MG TAB PO SCH (09:00)
[2019-12-25] MEDS ORDERED: NYSTATIN 100,000UNIT/GM CREAM 30 GM TUBE TOPICAL SCH (09:00)
[2019-12-25] MEDS ORDERED: TRIAMCINOLONE 0.1% CREAM 80 GM TUBE TOPICAL SCH (09:00)
[2019-12-25] MEDS ORDERED: GABAPENTIN 300 MG CAP PO SCH (09:00)
[2019-12-25] MEDS ORDERED: METOPROLOL TARTRATE 50 MG TAB PO SCH (09:00)
[2019-12-25] MEDS ORDERED: ASPIRIN 81 MG PO SCH (09:00)
[2019-12-25] MEDS ORDERED: ISOSORBIDE MONONITRATE ER 60 MG TAB.ER.24H PO SCH (09:00)
[2019-12-25 09:25] LABS: Basophils # (M) 0.05 k/uL (0-0.2); Eosinophils # (M) 0.22 k/uL (0-0.7); Lymphocytes # (M) 0.97 k/uL (1.0-4.8); Monocytes # (M) 0.43 k/uL (0-1.0); Myelocytes # (M) 0.05 k/uL (0); Myelocytes % 1 %; Neutrophils # (M) 3.73 k/uL (1.3-7.7); Neutrophils % (M) 69 %; Nucleated Red Blood Cells 0 /100 WBC (0-0); Total Cells Counted 200
[2019-12-25 09:26] LABS: Anisocytosis (M) Present; Poikilocytosis (M) Present
--- NOTE | 2019-12-25 09:33 | P.CRDCN ---
History of Present Illness Consult date: 12/25/19 Chief complaint: Chest pain History of present illness: This is a very pleasant 49-year-old gentleman who I follow in the office as an outpatient was coronary artery disease and status post CABG with the last heart catheterization was performed in 2018 showing severe triple-vessel CAD was patent OMALLEY to LAD and patent SVG to diagonal as well as patent SVG to RCA and at that point he was found to have severe disease involving OM of the left c ircumflex as well as ramus intermedius. At that point he underwent stenting of the OM and the ramus was treated medically. He presented to the hospital complaining of chest discomfort. He is known to have large hiatal hernia and he was seen at [facility] where he is waiting to undergo surgery which was postponed recently. He describes pain in the chest as sharp without any radiation and without any associated symptoms and he clearly stated that the pain is totally different, he had before he underwent the stenting. His cardiac workup or came in to be unremarkable with a chest x-ray did not show any acute abnormalities. The EKG showed sinus rhythm with ST changes seems to be the same as before and the cardiac enzymes came in to be unremarkable. At this point I'm going to get the patient up and around and if he is asymptomatic he possibly can go home and follow-up in the office with me as an outpatient. Past Medical History Past Medical History: Coronary Artery Disease (CAD), Chest Pain / Angina, Diabetes Mellitus, GERD/Reflux, Hyperlipidemia, Hypertension, Myocardial Infarction (CT), Osteoarthritis (OA), Pneumonia, Renal Disease Additional Past Medical History / Comment(s): IDDM type II, neuropathy bilateral hands/feet, retinopathy bilateral eyes, nephrolithiasis, arthritis bilateral hands/wrists, chronic lumbar back pain, vertigo at times. Last Myocardial Infarction Date:: 11/02/16, 08/02/17 History of Any Multi-Drug Resistant Organisms: MRSA Date of last positivie culture/infection: 10/08/2018 MDRO Source:: left lower leg Past Surgical History: Back Surgery, Coronary Bypass/CABG, Heart Catheterization With Stent, Orthopedic Surgery Additional Past Surgical History / Comment(s): PCI with stents, 3V CABG 07/2017, kidney stone basketing, failed L4-L5 fusion x2, colonoscopy Past Anesthesia/Blood Transfusion Reactions: No Reported Reaction Date of Last Stent Placement:: 08/2018 Past Psychological History: No Psychological Hx Reported Additional Psychological History / Comment(s): Pt resides with his spouse. He is independent. He has a glucometer. Smoking Status: Former smoker, Never smoker Past Alcohol Use History: None Reported Additional Past Alcohol Use History / Comment(s): Pt started smoking at the age of 17 yrs (1986) and quit in 2018 after open heart. pt reports no longer drinking daily after CABG Past Drug Use History: None Reported - Past Family History Father Family Medical History: Congestive Heart Failure (CHF), Coronary Artery Disease (CAD), CVA/TIA, Myocardial Infarction (CT) Additional Family Medical History / Comment(s): Father at the age of 63 yrs. Pt doesn't recall age of father's CT. Mother Family Medical History: Cancer Additional Family Medical History / Comment(s): Mother had multiple cancers. She is living. Medications and Allergies Home Medications Medication Instructions Recorded Confirmed Type Atorvastatin [Lipitor] 80 mg PO HS #30 tab 08/12/17 12/24/19 Rx Clopidogrel [Plavix] 75 mg PO DAILY #30 tablet 08/12/17 12/24/19 Rx Furosemide [Lasix] 20 mg PO DAILY 06/05/18 12/24/19 History Potassium Chloride [K-Tab ER] 10 meq PO DAILY 06/05/18 12/24/19 History Sertraline [Zoloft] 50 mg PO HS 06/05/18 12/24/19 History Insulin Lispro [Admelog] 25 units SQ AC-TID 08/12/18 12/24/19 History Meclizine [Antivert] 25 mg PO TID 08/12/18 12/24/19 History Metoprolol Tartrate [Lopressor] 100 mg PO BID 08/12/18 12/24/19 History Aspirin EC [Ecotrin Low Dose] 81 mg PO DAILY 10/18/18 12/24/19 History Gabapentin 800 mg PO HS@2100 06/13/19 12/24/19 History Gabapentin [Neurontin] 300 mg PO BID 06/13/19 12/24/19 History HYDROcodone/APAP 10-325MG [[place] 1 tab PO Q4H PRN 06/13/19 12/24/19 History 10-325] Montelukast [Singulair] 10 mg PO HS 06/13/19 12/24/19 History Omeprazole [PriLOSEC] 40 mg PO BID 06/13/19 12/24/19 History Albuterol Inhaler [Ventolin Hfa 1 puff INHALATION RT-Q6H PRN 12/24/19 12/24/19 History Inhaler] Fenofibrate [Lofibra] 160 mg PO HS 12/24/19 12/24/19 History Insulin Glargine,Hum.rec.anlog 80 unit SQ DAILY 12/24/19 12/24/19 History [Basaglar Kwikpen U-100] Isosorbide Mononitrate ER [Imdur] 60 mg PO DAILY 12/24/19 12/24/19 History Nystatin 100,000Unit/gm Cream 1 applic TOPICAL DAILY 12/24/19 12/24/19 History [Mycostatin Cream] Triamcinolone 0.1% Cream [Kenalog 1 applicatio TOPICAL BID 12/24/19 12/24/19 History 0.1% Cream] lisinopriL [Zestril] 10 mg PO DAILY 12/24/19 12/24/19 History Allergies Allergy/AdvReac Type Severity Reaction Status Date / Time No Known Allergies Allergy Verified 12/24/19 20:21 Physical Exam Vitals: Vital Signs Temp Pulse Pulse Resp BP BP Pulse Ox 12/25/19 03:00 97.6 F 72 18 152/76 96 12/24/19 21:00 97.5 F L 74 18 137/88 96 12/24/19 20:11 98 F 71 18 108/60 94 L 12/24/19 19:25 97.9 F 78 19 123/65 94 L 12/24/19 18:30 77 18 125/74 96 12/24/19 18:24 77 18 120/69 96 12/24/19 18:18 74 18 118/70 96 12/24/19 17:44 98.2 F 63 16 156/86 98 Intake and Output 12/24/19 12/25/19 12/25/19 22:59 06:59 14:59 Intake Total 1250 0 Balance 1250 0 Intake: Oral 1250 0 Other: Voiding Method Toilet Toilet # Voids 2 Weight 139.253 kg - Constitutional General appearance: no acute distress - Respiratory Respiratory: bilateral: CTA - Cardiovascular Rhythm: regular Heart sounds: normal: S1, S2 Results 12/25/19 07:50 12/25/19 07:50 Cardiac Enzymes 12/24/19 12/24/19 12/24/19 Range/Units 18:37 18:37 21:26 AST 42 (17-59) U/L Troponin I <0.012 <0.012 (0.000-0.034) ng/mL 12/25/19 Range/Units 00:42 AST (17-59) U/L Troponin I <0.012 (0.000-0.034) ng/mL Coagulation 12/24/19 Range/Units 18:37 PT 9.4 (9.0-12.0) sec APTT 23.0 (22.0-30.0) sec Lipids 12/25/19 Range/Units 07:50 Triglycerides 405 H (<150) mg/dL Cholesterol 189 (<200) mg/dL HDL Cholesterol 36 L (40-60) mg/dL CBC 12/24/19 12/25/19 Range/Units 18:37 07:50 WBC 6.7 5.4 (3.8-10.6) k/uL RBC 4.65 4.37 (4.30-5.90) m/uL Hgb 14.6 13.7 (13.0-17.5) gm/dL Hct 45.2 42.7 (39.0-53.0) % Plt Count 181 130 L (150-450) k/uL Comprehensive Metabolic Panel 12/24/19 12/25/19 Range/Units 18:37 07:50 Sodium 136 L 137 (137-145) mmol/L Potassium 5.2 H 4.9 (3.5-5.1) mmol/L Chloride 106 107 (98-107) mmol/L Carbon Dioxide 27 28 (22-30) mmol/L BUN 45 H 41 H (9-20) mg/dL Creatinine 1.25 1.08 (0.66-1.25) mg/dL Glucose 272 H 288 H (74-99) mg/dL Calcium 9.2 9.0 (8.4-10.2) mg/dL AST 42 (17-59) U/L ALT 38 (4-49) U/L Alkaline Phosphatase 67 (38-126) U/L Total Protein 5.9 L (6.3-8.2) g/dL Albumin 3.3 L (3.5-5.0) g/dL Current Medications Generic Name Dose Route Start Last Admin Trade Name Freq PRN Reason Stop Dose Admin Hydrocodone Bitart/Acetaminophen 1 each 12/24/19 19:03 [place] 5-325 PO Q6HR PRN Moderate Pain Hydrocodone Bitart/Acetaminophen 1 each 12/24/19 21:03 [place] 10 PO Q4H PRN Pain Albuterol Sulfate 2.5 mg 12/24/19 21:03 Ventolin Nebulized INHALATION RT-Q6H PRN Shortness Of Breath Alprazolam 0.25 mg 12/24/19 19:03 Xanax PO TID PRN Anxiety Aspirin 81 mg 12/25/19 09:00 Aspirin PO DAILY [facility] Atorvastatin Calcium 80 mg 12/24/19 21:15 12/24/19 22:12 Lipitor PO 80 mg HS ANDRE Administration Clopidogrel Bisulfate 75 mg 12/25/19 09:00 Plavix PO DAILY [facility] Fenofibrate 160 mg 12/25/19 21:00 Lofibra PO HS [facility] Furosemide 20 mg 12/25/19 09:00 Lasix PO DAILY [facility] Gabapentin 800 mg 12/25/19 21:00 Neurontin PO HS@2100 [facility] Gabapentin 300 mg 12/25/19 09:00 Neurontin PO BID [facility] Hydromorphone HCl 0.5 mg 12/24/19 19:03 12/25/19 04:01 Dilaudid IVP 0.5 mg Q6HR PRN Administration Severe Pain Insulin Aspart 0 unit 12/24/19 21:00 12/25/19 06:45 Novolog SQ Not Given ACHS [facility] Protocol Isosorbide Mononitrate 60 mg 12/25/19 09:00 Imdur PO DAILY [facility] Meclizine HCl 25 mg 12/24/19 21:03 Antivert PO TID PRN Vertigo Metoprolol Tartrate 100 mg 12/25/19 09:00 Lopressor PO BID [facility] Montelukast Sodium 10 mg 12/24/19 21:00 12/24/19 22:12 Singulair PO 10 mg HS ANDRE Administration Nitroglycerin 0.4 mg 12/24/19 19:48 Nitrostat SUBLINGUAL Q5M PRN Chest Pain Nitroglycerin 1 inch 12/25/19 00:00 12/25/19 04:57 Nitro-Bid Oint TOPICAL Not Given Q6HR ANDRE Nystatin 1 applic 12/25/19 09:00 Mycostatin Cream TOPICAL DAILY ANDRE Pantoprazole Sodium 40 mg 12/25/19 09:00 Protonix IVP DAILY ANDRE Sertraline HCl 50 mg 12/24/19 21:15 12/24/19 22:12 Zoloft PO 50 mg HS ANDRE Administration Temazepam 15 mg 12/24/19 19:03 Restoril PO HS PRN Insomnia Triamcinolone Acetonide 1 applic 12/25/19 09:00 Kenalog TOPICAL BID ANDRE Intake and Output 12/24/19 12/25/19 12/25/19 22:59 06:59 14:59 Intake Total 1250 0 Balance 1250 0 Intake: Oral 1250 0 Other: Voiding Method Toilet Toilet # Voids 2 Weight 139.253 kg 12/25/19 07:50 12/25/19 07:50 Assessment and Plan Assessment: Assessment #1 atypical chest discomfort #2 CAD and status post revascularization #3 multiple comorbid conditions Plan #1 acute coronary event was ruled out #2 I will get the patient up and around and if she is asymptomatic he possibly can be discharged home Thank you for allowing us participate in his care
[2019-12-25 09:53] LABS: Glucose,Whole Blood 267 mg/dL (75-99)
[2019-12-25 11:52] LABS: Glucose,Whole Blood 352 mg/dL (75-99)
[2019-12-25 13:08] VITALS: BP 169/91; PULSE 73; TEMP 97.4
--- NOTE | 2019-12-25 14:37 | DS ---
DISCHARGE SUMMARY DATE OF SERVICE: 12/25/2019 FINAL DIAGNOSES: 1. Chest pain possibly secondary to hiatal hernia, gastroesophageal reflux disease, myocardial infarction ruled out. Rule out coronary artery disease. 2. History of coronary artery disease, coronary artery bypass grafting stent. 3. Diabetes mellitus type 2. 4. Hypertension. 5. History of myocardial infarction. 6. History of degenerative joint disease. 7. History of neuropathy. 8. History of nephrolithiasis. 9. History of degenerative joint disease. 10.History of MRSA. 11.History of nicotine dependence. 12.Obesity with body mass index of 45.3. 13.FULL CODE. DISCHARGE DISPOSITION: The patient is being discharged in stable condition with guarded prognosis. Discharge cleared by Cardiology. HISTORY OF PRESENT ILLNESS: This 43-year-old gentleman with a past medical history of multiple medical problems as mentioned earlier, being followed by Dr. Araujo in the outpatient setting, admitted with chest pain, myocardial infarction ruled out, treated symptomatically. Patient improved significantly. Cardiology saw the patient and recommended outpatient followup. On exam, vitals stable. Cardiovascular S1, S2 normal. Abdomen soft. Nervous system: No focal deficits. DISCHARGE ADVICE AND MEDICATIONS: 1. Diet is cardiac diet. 2. Activity limited until followup. 3. Follow up with Dr. Araujo in 2-3 days. 4. Follow up with Cardiology as recommended. 5. Follow up with [facility] for hiatal hernia repair. 6. Medications are: Admelog 25 units subcu a.c. t.i.d. 7. Antivert 25 mg p.o. t.i.d. 8. Lantus 80 units subcu daily. 9. Aspirin 81 mg daily. 10.Gabapentin 800 mg q.h.s. 11.Imdur ER 60 mg daily. 12.Potassium chloride 10 mEq p.o. daily. 13.Kenalog 1 application topical. 14.Lasix 20 mg daily. 15.Lofibra 160 mg q.h.s. 16.Lopressor 500 mg p.o. b.i.d. 17.Nystatin 1 application topically. 18.Neurontin 300 mg p.o. b.i.d. 19.Hydrocodone 10 mEq q.4 p.r.n. 20.Prilosec 40 mg p.o. b.i.d. 21.Singulair 10 mg q.h.s. 22.Ventolin p.r.n. 23.Zestril 10 mg p.o. daily. 24.Zoloft 50 mg q.h.s. 25.Lipitor 80 mg q.h.s. 26.Plavix 75 mg p.o. daily. Once again, the patient discharged in stable condition with guarded prognosis. MMODL / IJN: [id number] /
[2019-12-25] MEDS ORDERED: FENOFIBRATE 160 MG TAB PO SCH (21:00)
[2019-12-25] MEDS ORDERED: GABAPENTIN 400 MG CAP PO SCH (21:00)
[2019-12-26] MEDS ORDERED: PANTOPRAZOLE 40 MG TABLET PO SCH (07:30)
== END 2019-12-25 15:10 | disposition home or self-care (01) ==
LOC: EC 17:42 → 3NCARDOBS 19:49
PROVIDERS: ADMIT Hospitalist; ATTEND Hospitalist
DX: R07.89 Other chest pain (principal); K44.9 Diaphragmatic hernia without obstruction or gangrene; K21.9 Gastro-esophageal reflux disease without esophagitis; R06.00 Dyspnea, unspecified; M79.89 Other specified soft tissue disorders; Z95.5 Presence of coronary angioplasty implant and graft; Z95.1 Presence of aortocoronary bypass graft; I25.10 Atherosclerotic heart disease of native coronary artery without angina pectoris; E11.319 Type 2 diabetes mellitus with unspecified diabetic retinopathy without macular edema; E11.40 Type 2 diabetes mellitus with diabetic neuropathy, unspecified; G62.9 Polyneuropathy, unspecified; I10 Essential (primary) hypertension; E66.9 Obesity, unspecified; Z68.42 Body mass index [BMI] 45.0-49.9, adult; E78.5 Hyperlipidemia, unspecified; I25.2 Old myocardial infarction; M19.90 Unspecified osteoarthritis, unspecified site; M19.041 Primary osteoarthritis, right hand; M19.042 Primary osteoarthritis, left hand; G89.29 Other chronic pain; M54.5 Low back pain; Z87.442 Personal history of urinary calculi; Z86.14 Personal history of Methicillin resistant Staphylococcus aureus infection; Z87.891 Personal history of nicotine dependence; Z87.01 Personal history of pneumonia (recurrent); Z79.899 Other long term (current) drug therapy; Z79.4 Long term (current) use of insulin; Z79.02 Long term (current) use of antithrombotics/antiplatelets; Z79.82 Long term (current) use of aspirin; Z82.49 Family history of ischemic heart disease and other diseases of the circulatory system; Z82.5 Family history of asthma and other chronic lower respiratory diseases; Z82.3 Family history of stroke; Z80.8 Family history of malignant neoplasm of other organs or systems
CPT/HCPCS: 93005 ×2; 96374; 96375; 96376; 99285; 36415; 85379; 83880; 80061; 80053; 80048; 82150; 83690; 83735; 84484 ×2; 85025 ×2; 85610; 85730; 71046; G0378 ×2; C9113; J1170 ×2

== ENCOUNTER → 2020-08-23 | Outpatient (CLI) | payer MEDICARE ==
[2020-08-23 19:23] LABS: HCT 51.1 % (39.6-50.0); MCH 31.2 pg (27.0-32.0); MCHC 31.3 g/dL (32.0-37.0); MCV 99.6 fL (80.0-97.0); Mean Platelet Volume 11.8 fL (9.5-12.2); Platelet Count 161 X 10*3/uL (140-440); RBC 5.13 X 10*6/uL (4.40-5.60); RDW 14.5 % (11.5-14.5); WBC 6.57 X 10*3/uL (4.50-10.00)
[2020-08-23 21:09] LABS: ALT 33 U/L (10-49); AST 27 U/L (14-35); African American GFR (CKD) 53.7 (60.0-200.0); Alkaline Phosphatase 115 U/L (41-126); BUN/Creat Ratio 18.82 Ratio (12.00-20.00); Calcium 9.4 mg/dL (8.7-10.3); Carbon Dioxide 25.9 mmol/L (21.6-31.8); Chloride 103 mmol/L (96-109); Glucose 287 mg/dL (70-110); Non-African American GFR(CKD) 46.3 (60.0-200.0); Phosphorus 4.5 mg/dL (2.4-5.1); Potassium 4.4 mmol/L (3.5-5.5); Sodium 139 mmol/L (135-145); Total Bilirubin 0.4 mg/dL (0.3-1.2); Total Protein 5.6 g/dL (6.2-8.2)
[2020-08-23 21:10] LABS: % Iron Saturation 21.28 (15.00-50.00); Chol/HDL Ratio 4.69; Cholesterol 258 mg/dL (0-200); Iron 63 ug/dL (65-175); LDL Cholesterol,Calculated 132.2 mg/dL (0.0-131.0); Magnesium 1.6 mg/dL (1.5-2.4); Total Iron Binding Capacity 296 ug/dL (228-460)
[2020-08-23 21:19] LABS: Ferritin 57.1 ng/mL (22.0-322.0)
[2020-08-23 21:36] LABS: Hemoglobin A1C 8.8 % (4.0-6.0)
[2020-08-23 21:50] LABS: Folate, Serum >24.0 ng/mL
[2020-08-24 00:10] LABS: INR 0.93 (0.90-1.11); Partial Thromboplastin Time 25.5 sec (23.5-31.0); Prothrombin Time 10.2 sec (9.9-11.9)
[2020-08-26 12:19] LABS: Zinc, Serum 71 ug/dL (60-130)
[2020-08-27 07:14] LABS: Vit B1(Thiamine) 82 ug/L (38-122)
[2020-08-27 08:03] LABS: Vitamin A 86 ug/dL (38-106)
== END | disposition home or self-care (01) ==
LOC: LABWHC1 14:12
PROVIDERS: ATTEND Surgery Plastic and Reconstructive Surgery
DX: E21.1 Secondary hyperparathyroidism, not elsewhere classified (principal); D50.8 Other iron deficiency anemias; E44.0 Moderate protein-calorie malnutrition; E55.9 Vitamin D deficiency, unspecified; K74.1 Hepatic sclerosis; N19 Unspecified kidney failure; K50.90 Crohn's disease, unspecified, without complications; E66.01 Morbid (severe) obesity due to excess calories; I11.0 Hypertensive heart disease with heart failure; I50.9 Heart failure, unspecified
CPT/HCPCS: 36415; 80053; 80061; 82306; 82525; 82607; 82728; 82746; 83036; 83540; 83550; 83735; 83970; 84100; 84134; 84255; 84425; 84443; 84590; 84630; 85027; 85610; 85730; 93005

== ENCOUNTER 2020-08-27 13:06 | Emergency (ER) | payer MEDICARE ==
[2020-08-27 13:11] VITALS: BP 130/75; PULSE 93; RESP 20; TEMP 98
[2020-08-27] MEDS ORDERED: SULFAMETH-TMP DS STARTER PACK 2 TAB BTL PO STA (14:19)
--- NOTE | 2020-08-27 14:22 | ED ---
Skin/Abscess/FB HPI - General Chief complaint: Skin/Abscess/Foreign Body Stated complaint: MRSA lt leg Time Seen by Provider: 08/27/20 13:26 Source: patient Mode of arrival: ambulatory Limitations: no limitations - History of Present Illness Initial comments: 50-year-old male patient presents to the emergency department today for evaluation of a wound to the left leg. Patient states this started 2 days ago. States it is draining pus. States he has had MRSA in the past and this looks similar. Denies any fever or chills. States the area does burn but denies any significant pain. States he does have a history of diabetes. Denies any injury to the leg. Denies any itching. - Related Data Home Medications Medication Instructions Recorded Confirmed Furosemide [Lasix] 20 mg PO DAILY 06/05/18 08/26/20 Potassium Chloride [K-Tab ER] 10 meq PO DAILY 06/05/18 08/26/20 Sertraline [Zoloft] 50 mg PO HS 06/05/18 08/26/20 Meclizine [Antivert] 25 mg PO TID 08/12/18 08/26/20 Metoprolol Tartrate [Lopressor] 100 mg PO BID 08/12/18 08/26/20 Aspirin EC [Ecotrin Low Dose] 81 mg PO DAILY 10/18/18 08/26/20 HYDROcodone/APAP 10-325MG [[place] 1 tab PO Q4H PRN 06/13/19 08/26/20 10-325] Montelukast [Singulair] 10 mg PO HS 06/13/19 08/26/20 Omeprazole [PriLOSEC] 40 mg PO BID 06/13/19 08/26/20 Albuterol Inhaler [Ventolin Hfa 1 puff INHALATION RT-Q6H PRN 12/24/19 08/26/20 Inhaler] Fenofibrate [Lofibra] 160 mg PO HS 12/24/19 08/26/20 Isosorbide Mononitrate ER [Imdur] 60 mg PO QAM 12/24/19 08/26/20 lisinopriL [Zestril] 10 mg PO QAM 12/24/19 08/26/20 Insulin Aspart [NovoLOG] 40 units SQ TID-W/MEALS 08/26/20 08/26/20 Insulin Glargine [Lantus] 80 unit SQ HS 08/26/20 08/26/20 Pregabalin [Lyrica] 100 mg PO BID 08/26/20 08/26/20 Previous Rx's Medication Instructions Recorded Atorvastatin [Lipitor] 80 mg PO HS #30 tab 08/12/17 Clopidogrel [Plavix] 75 mg PO DAILY #30 tablet 08/12/17 Sulfamethoxazole/Trimethoprim 1 each PO BID #20 tablet 08/27/20 [Bactrim DS 800-160 mg] Allergies Allergy/AdvReac Type Severity Reaction Status Date / Time No Known Allergies Allergy Verified 08/27/20 13:11 Review of Systems ROS Statement: Those systems with pertinent positive or pertinent negative responses have been documented in the HPI. ROS Other: All systems not noted in ROS Statement are negative. Past Medical History Past Medical History: Coronary Artery Disease (CAD), Diabetes Mellitus, Hyperlipidemia, Hypertension, Renal Disease Additional Past Medical History / Comment(s): IDDM type II, neuropathy bilateral hands/feet, retinopathy bilateral eyes, nephrolithiasis, arthritis bilateral hands/wrists, chronic lumbar back pain, vertigo at times. Last Myocardial Infarction Date:: 11/02/16, 08/02/17 History of Any Multi-Drug Resistant Organisms: MRSA Date of last positivie culture/infection: 10/08/2018 MDRO Source:: left lower leg Past Surgical History: Back Surgery, Coronary Bypass/CABG, Heart Catheterization With Stent, Orthopedic Surgery Additional Past Surgical History / Comment(s): PCI with stents, 3V CABG 07/2017, kidney stone basketing, failed L4-L5 fusion x2, colonoscopy Past Anesthesia/Blood Transfusion Reactions: No Reported Reaction Date of Last Stent Placement:: 08/2018 Past Psychological History: No Psychological Hx Reported Smoking Status: Former smoker Past Alcohol Use History: None Reported Past Drug Use History: None Reported - Past Family History Father Family Medical History: Congestive Heart Failure (CHF), Coronary Artery Disease (CAD), CVA/TIA, Myocardial Infarction ([place]) Additional Family Medical History / Comment(s): Father at the age of 63 yrs. Pt doesn't recall age of father's [place]. Mother Family Medical History: Cancer Additional Family Medical History / Comment(s): Mother had multiple cancers. She is living. General Exam Limitations: no limitations General appearance: alert, in no apparent distress, other (This is a well- developed, well-nourished adult male patient in no acute distress. Vital signs upon presentation are temperature 98.0F, pulse 93, respirations 20, blood pressure 130/75, pulse ox 96% on room air.) Respiratory exam: Present: normal lung sounds bilaterally. Absent: respiratory distress, wheezes, rales, rhonchi, stridor Cardiovascular Exam: Present: regular rate, normal rhythm, normal heart sounds. Absent: systolic murmur, diastolic murmur, rubs, gallop, clicks Extremities exam: Present: full ROM, normal capillary refill, other (There is purulent drainage noted from wound to the left anterior rees. Mild erythema.). Absent: normal inspection, tenderness, pedal edema, joint swelling, calf tenderness Course Vital Signs 08/27/20 13:07 Temperature 98.0 F Pulse Rate 93 Respiratory 20 Rate Blood Pressure 130/75 O2 Sat by Pulse 96 Oximetry Medical Decision Making - Medical Decision Making 50-year-old male patient presents to the emergency department today for evaluation of wound to the left rees. Physical examination did reveal. On drainage mild erythema. Obese her on Bactrim as he does have a history of MRSA. Wound culture was obtained. He'll be discharged with instructions to cleanse the area twice daily, apply antibiotic ointment, and dressing. He is instructed to complete antibiotic prescription and full. He is given wound care follow-up. He is instructed to follow up with the primary care physician for recheck in 1- 2 days. Return parameters were discussed in detail. He verbalizes understanding and agrees with this plan. My attending is Dr. Handy. Disposition Clinical Impression: Leg wound, left Disposition: HOME SELF-CARE Condition: Good Instructions (If sedation given, give patient instructions): Acute Wound Care (ED) Additional Instructions: Cleanse wound twice daily with warm water and antibacterial soap. Apply antibiotic ointment. Complete antibiotic in full. Follow up with wound care. Return for any new, worsening, or concerning symptoms. Prescriptions: Sulfamethoxazole/Trimethoprim [Bactrim DS 800-160 mg] 1 each PO BID #20 tablet Is patient prescribed a controlled substance at d/c from ED?: No Referrals: Guzman Araujo MD [Primary Care Provider] - 1-2 days [facility] [NON-STAFF] - 1-2 days Time of Disposition: 14:22
== END 2020-08-27 14:36 | disposition home or self-care (01) ==
LOC: EC 13:06
DX: S81.802A Unspecified open wound, left lower leg, initial encounter (principal); I25.10 Atherosclerotic heart disease of native coronary artery without angina pectoris; E78.5 Hyperlipidemia, unspecified; I10 Essential (primary) hypertension; E11.40 Type 2 diabetes mellitus with diabetic neuropathy, unspecified; E11.319 Type 2 diabetes mellitus with unspecified diabetic retinopathy without macular edema; M19.031 Primary osteoarthritis, right wrist; M19.032 Primary osteoarthritis, left wrist; M19.041 Primary osteoarthritis, right hand; M19.042 Primary osteoarthritis, left hand; E66.9 Obesity, unspecified; Z87.891 Personal history of nicotine dependence; Z79.82 Long term (current) use of aspirin; Z79.4 Long term (current) use of insulin; Z68.42 Body mass index [BMI] 45.0-49.9, adult; X58.XXXA Exposure to other specified factors, initial encounter
CPT/HCPCS: 87070; 87205; 99282

== ENCOUNTER 2020-08-28 07:54 | Day surgery (SDC) | payer MEDICARE, OTHER ==
[2020-08-26 14:10] VITALS: BMI 49.3
[~2020-08-28 07:54] MED LIST changes: -ALPRAZolam 0.25 MG TAB PO PRN; -ALPRAZolam 0.5 MG TAB PO PRN; -ASPIRIN 325 MG TAB PO STA; -ATORVASTATIN 80 MG TAB PO STA; +LACTATED RINGERS 1,000 ML IV SCH; +LIDOCAINE 1% (10MG/ML) FOR IV START INTRADERMA PRN; -NITROGLYCERIN SL TABS 0.4 MG TAB SUBLINGUAL PRN; -SODIUM CHLORIDE 0.9% 1,000 ML in EMPTY BAG 1 BAG IV ONE
--- NOTE | 2020-08-28 08:27 | P.GSHP ---
History of Present Illness H&P Date: 08/28/20 CHIEF COMPLAINT: GERD and colon screen HISTORY OF PRESENT ILLNESS: The patient is a 50-year-old male who presents with gastroesophageal reflux disease and need for colon screen. Upper and lower endoscopy were offered for further evaluation and management. PAST MEDICAL HISTORY: Please see list. PAST SURGICAL HISTORY: Please see list. MEDICATIONS: Please see list. ALLERGIES: Please see list. SOCIAL HISTORY: No illicit drug use FAMILY HISTORY: No reports of Crohn disease or ulcerative colitis. REVIEW OF ORGAN SYSTEMS: CONSTITUTIONAL: No reports of fevers or chills. GI: Denies any blood in stools or constipation. PHYSICAL EXAM: VITAL SIGNS: Stable GENERAL: Well-developed pleasant in no acute distress. HEENT: No scleral icterus. Extraocular movements grossly intact. Moist buccal mucosa. NECK: Supple without lymphadenopathy. CHEST: Unlabored respirations. Equal bilateral excursions. CARDIOVASCULAR: Regular rate and rhythm. Distal 2+ pulses. ABDOMEN: Soft, nondistended. MUSCULOSKELETAL: No clubbing, cyanosis, or edema. ASSESSMENT: 1. Gastroesophageal reflux disease 2. Colon screen. PLAN: 1. Recommend proceeding with an upper and lower endoscopy Past Medical History Past Medical History: Coronary Artery Disease (CAD), Diabetes Mellitus, Hyperlipidemia, Hypertension, Renal Disease Additional Past Medical History / Comment(s): IDDM type II, neuropathy bilateral hands/feet, retinopathy bilateral eyes, nephrolithiasis, arthritis bilateral hands/wrists, chronic lumbar back pain, vertigo at times. Last Myocardial Infarction Date:: 11/02/16, 08/02/17 History of Any Multi-Drug Resistant Organisms: MRSA Date of last positivie culture/infection: 10/08/2018 MDRO Source:: left lower leg Past Surgical History: Back Surgery, Coronary Bypass/CABG, Heart Catheterization With Stent, Orthopedic Surgery Additional Past Surgical History / Comment(s): PCI with stents, 3V CABG 07/2017, kidney stone basketing, failed L4-L5 fusion x2, colonoscopy Past Anesthesia/Blood Transfusion Reactions: No Reported Reaction Date of Last Stent Placement:: 08/2018 Past Psychological History: No Psychological Hx Reported Smoking Status: Former smoker Past Alcohol Use History: None Reported Past Drug Use History: None Reported - Past Family History Father Family Medical History: Congestive Heart Failure (CHF), Coronary Artery Disease (CAD), CVA/TIA, Myocardial Infarction ([place]) Additional Family Medical History / Comment(s): Father at the age of 63 yrs. Pt doesn't recall age of father's [place]. Mother Family Medical History: Cancer Additional Family Medical History / Comment(s): Mother had multiple cancers. She is living. Medications and Allergies Home Medications Medication Instructions Recorded Confirmed Type Atorvastatin [Lipitor] 80 mg PO HS #30 tab 08/12/17 08/26/20 Rx Clopidogrel [Plavix] 75 mg PO DAILY #30 tablet 08/12/17 08/26/20 Rx Furosemide [Lasix] 20 mg PO DAILY 06/05/18 08/26/20 History Potassium Chloride [K-Tab ER] 10 meq PO DAILY 06/05/18 08/26/20 History Sertraline [Zoloft] 50 mg PO HS 06/05/18 08/26/20 History Meclizine [Antivert] 25 mg PO TID 08/12/18 08/26/20 History Metoprolol Tartrate [Lopressor] 100 mg PO BID 08/12/18 08/26/20 History Aspirin EC [Ecotrin Low Dose] 81 mg PO DAILY 10/18/18 08/26/20 History HYDROcodone/APAP 10-325MG [[place] 1 tab PO Q4H PRN 06/13/19 08/26/20 History 10-325] Montelukast [Singulair] 10 mg PO HS 06/13/19 08/26/20 History Omeprazole [PriLOSEC] 40 mg PO BID 06/13/19 08/26/20 History Albuterol Inhaler [Ventolin Hfa 1 puff INHALATION RT-Q6H PRN 12/24/19 08/26/20 History Inhaler] Fenofibrate [Lofibra] 160 mg PO HS 12/24/19 08/26/20 History Isosorbide Mononitrate ER [Imdur] 60 mg PO QAM 12/24/19 08/26/20 History lisinopriL [Zestril] 10 mg PO QAM 12/24/19 08/26/20 History Insulin Aspart [NovoLOG] 40 units SQ TID-W/MEALS 08/26/20 08/26/20 History Insulin Glargine [Lantus] 80 unit SQ HS 08/26/20 08/26/20 History Pregabalin [Lyrica] 100 mg PO BID 08/26/20 08/26/20 History Sulfamethoxazole/Trimethoprim 1 each PO BID #20 tablet 08/27/20 Rx [Bactrim DS 800-160 mg] Allergies Allergy/AdvReac Type Severity Reaction Status Date / Time No Known Allergies Allergy Verified 08/27/20 13:11
[2020-08-28 08:35] LABS: Glucose,Whole Blood 137 mg/dL (75-99)
[2020-08-28 08:37] VITALS: TEMP 97.8
[2020-08-28] MEDS ORDERED: PROPOFOL 10 MG/ML 20 ML VIAL IV ONE (08:40)
[2020-08-28] MEDS ORDERED: GLYCOPYRROLATE 0.2 MG/ML 2 ML VIAL ONE (08:40)
[2020-08-28] MEDS ORDERED: LIDOCAINE 1% INJ 10MG/ML (20 ML MDV) ONE (08:40)
[2020-08-28] MEDS ORDERED: KETAMINE 10 MG/ML 20 ML VIAL ONE (08:40)
[2020-08-28] MEDS ORDERED: MIDAZOLAM 2 MG/2 ML VIAL ONE (08:40)
--- NOTE | 2020-08-28 08:54 | P.PCN ---
Date of Procedure: 08/28/20 Description of Procedure: PREOPERATIVE DIAGNOSIS: Gastroesophageal reflux disease. Morbid obesity. POSTOPERATIVE DIAGNOSIS: Morbid obesity. Gastritis. Gastroesophageal reflux disease. Duodenal polyps OPERATION: Esophagogastroduodenoscopy with biopsies along antrum and duodenum SURGEON: Sylvie Lagos MD ANESTHESIA: MAC. INDICATIONS: The patient is a 50-year-old male who presents with a history of reflux disease. Benefits and risks of the procedure were described. Informed consent was obtained. DESCRIPTION: The patient was brought into the endoscopy suite and laid in the left lateral decubitus position. An Olympus gastroscope was passed along the posterior oropharynx down to the distal esophagus where the squamocolumnar junction was encountered at 44 cm from the incisors. The stomach was entered and bile reflux was found. Additional findings are listed below. Biopsies with cold forceps were obtained of the antrum. The first through third portion of the duodenum was examined and remarkable multiple polypoid lesions . Retroflexion of the scope confirmed Hill grade 2 lower esophageal valve. The squamocolumnar junction demonstrated LA grade A erosive esophagitis. During the procedure patient had desaturation consistent with sleep apnea. The stomach was desufflated. The patient tolerated the procedure well. FINDINGS: Squamocolumnar junction 44 cm from the incisors. Diaphragmatic hiatus at 44 cm. Hill grade 2 lower esophageal valve. LA grade A erosive esophagitis. Multiple duodenal polyps Chronic gastritis Desaturation consistent with sleep apnea RECOMMENDATIONS: Upper endoscopy as needed. Recommend evaluation for sleep apnea
[2020-08-28 09:58] LABS: Glucose,Whole Blood 138 mg/dL (75-99)
--- NOTE | 2020-08-28 09:58 | P.PCN ---
Date of Procedure: 08/28/20 Description of Procedure: PREOPERATIVE DIAGNOSIS: Personal history of colon polyps Family history malignant colon polyps Colonoscopy screening POSTOPERATIVE DIAGNOSIS: Tubular adenoma cecum Tubular adenoma ascending colon Tubular adenoma hepatic flexure Tubular adenoma transverse colon Tubular adenoma sigmoid colon Internal hemorrhoids, grade 2 OPERATION: Colonoscopy to the ileocecal valve and appendiceal orifice, cecum Colonoscopy with hot snare polypectomy SURGEON: Sylvie Lagos MD. ANESTHESIA: MAC. INDICATIONS: The patient is an 50-year-old male who presents family history of malignant colon polyps and personal history of colon polyps. Last colonoscopy over 5 years ago. Benefits and risks were described and informed consent was obtained. DESCRIPTION OF PROCEDURE: The patient had undergone Suprep. The patient had been brought into the operating room and laid in the left lateral decubitus position. After adequate intravenous sedation, the rectum was examined with 2% lidocaine jelly. The prostate was unremarkable. No external hemorrhoids were encountered. The rectal tone was within normal limits. No lesions were palpated in the rectal vault. An Olympus colonoscope was advanced until the cecum, ileocecal valve and appendiceal orifice were clearly viewed. The prep was fair. No sigmoid diverticulosis was encountered. Colonic polyps were found and removed. Mild colitis was found of the sigmoid colon. Retroflexion of the scope demonstrated grade 2 internal hemorrhoids without active bleeding or inflammation. The colon was desufflated. The patient had tolerated the procedure well. Withdrawal time was over 6 minutes. FINDINGS: Aronchick preparation quality scale 3 (1-5) Internal hemorrhoids, grade 2 No external hemorrhoids No arteriovenous malformations. No sigmoid diverticulosis Removal of 24 polyps: - Snare polypectomy cecum 4, 7 to 12 mm tubulovillous adenoma polyp. - Snare polypectomy proximal ascending colon 3, 5 to 9 mm tubulovillous adenoma polyp. - Snare polypectomy distal ascending colon 3, 5 to 9 mm tubulovillous adenoma polyp. - Snare polypectomy hepatic flexure 3, 5 to 9 mm tubulovillous adenoma polyp. - Snare polypectomy proximal transverse colon 4, 6 to 7 mm tubulovillous adenoma polyp. - Snare polypectomy mid transverse colon 3, 7 to 9 mm tubulovillous adenoma polyp. - Snare polypectomy distal transverse colon 2, 5 to 8 mm tubulovillous adenoma polyp. - Snare polypectomy 15 cm from the anal verge x 2 , 5 to 7 mm tubulovillous adenoma polyp, sigmoid colon Focal colitis at sigmoid colon RECOMMENDATIONS: Repeat colonoscopy one year, August 2021 Plan - Discharge Summary Discharge Rx Participant: No New Discharge Prescriptions: Continue Atorvastatin [Lipitor] 80 mg PO HS #30 tab Clopidogrel [Plavix] 75 mg PO DAILY #30 tablet Furosemide [Lasix] 20 mg PO DAILY Potassium Chloride [K-Tab ER] 10 meq PO DAILY Sertraline [Zoloft] 50 mg PO HS Meclizine [Antivert] 25 mg PO TID Metoprolol Tartrate [Lopressor] 100 mg PO BID Aspirin EC [Ecotrin Low Dose] 81 mg PO DAILY Montelukast [Singulair] 10 mg PO HS Omeprazole [PriLOSEC] 40 mg PO BID HYDROcodone/APAP 10-325MG [[place] 10-325] 1 tab PO Q4H PRN PRN Reason: Pain Albuterol Inhaler [Ventolin Hfa Inhaler] 1 puff INHALATION RT-Q6H PRN PRN Reason: Shortness Of Breath lisinopriL [Zestril] 10 mg PO QAM Isosorbide Mononitrate ER [Imdur] 60 mg PO QAM Fenofibrate [Lofibra] 160 mg PO HS Pregabalin [Lyrica] 100 mg PO BID Insulin Glargine [Lantus] 80 unit SQ HS Sulfamethoxazole/Trimethoprim [Bactrim DS 800-160 mg] 1 each PO BID #20 tablet Insulin Aspart [NovoLOG] 40 units SQ TID-W/MEALS Discharge Medication List Atorvastatin [Lipitor] 80 mg PO HS #30 tab 08/12/17 [Rx] Clopidogrel [Plavix] 75 mg PO DAILY #30 tablet 08/12/17 [Rx] Furosemide [Lasix] 20 mg PO DAILY 06/05/18 [History] Potassium Chloride [K-Tab ER] 10 meq PO DAILY 06/05/18 [History] Sertraline [Zoloft] 50 mg PO HS 06/05/18 [History] Meclizine [Antivert] 25 mg PO TID 08/12/18 [History] Metoprolol Tartrate [Lopressor] 100 mg PO BID 08/12/18 [History] Aspirin EC [Ecotrin Low Dose] 81 mg PO DAILY 10/18/18 [History] HYDROcodone/APAP 10-325MG [[place] 10-325] 1 tab PO Q4H PRN 06/13/19 [History] Montelukast [Singulair] 10 mg PO HS 06/13/19 [History] Omeprazole [PriLOSEC] 40 mg PO BID 06/13/19 [History] Albuterol Inhaler [Ventolin Hfa Inhaler] 1 puff INHALATION RT-Q6H PRN 12/24/19 [History] Fenofibrate [Lofibra] 160 mg PO HS 12/24/19 [History] Isosorbide Mononitrate ER [Imdur] 60 mg PO QAM 12/24/19 [History] lisinopriL [Zestril] 10 mg PO QAM 12/24/19 [History] Insulin Aspart [NovoLOG] 40 units SQ TID-W/MEALS 08/26/20 [History] Insulin Glargine [Lantus] 80 unit SQ HS 08/26/20 [History] Pregabalin [Lyrica] 100 mg PO BID 08/26/20 [History] Sulfamethoxazole/Trimethoprim [Bactrim DS 800-160 mg] 1 each PO BID #20 tablet 08/27/20 [Rx] Follow up Appointment(s)/Referral(s): Sylvie Lagos MD [STAFF PHYSICIAN] - 09/03/20 Patient Instructions/Handouts: Colorectal Polyps (DC) Activity/Diet/Wound Care/Special Instructions: START PLAVIX AUGUST 31Wednesday. REPEAT COLONOSCOPY 1 YEAR, AUGUST 2021 Discharge Disposition: HOME SELF-CARE
[2020-08-28 10:50] VITALS: BP 116/76; PULSE 70; RESP 20
== END 2020-08-28 10:55 | disposition home or self-care (01) ==
LOC: ORWHC2ENDO 07:54
PROVIDERS: ATTEND Surgery Plastic and Reconstructive Surgery
DX: D12.2 Benign neoplasm of ascending colon (principal); D12.0 Benign neoplasm of cecum; D12.3 Benign neoplasm of transverse colon; D12.5 Benign neoplasm of sigmoid colon; K63.5 Polyp of colon; K31.7 Polyp of stomach and duodenum; K51.40 Inflammatory polyps of colon without complications; K64.1 Second degree hemorrhoids; K31.9 Disease of stomach and duodenum, unspecified; K22.10 Ulcer of esophagus without bleeding; K29.50 Unspecified chronic gastritis without bleeding; E66.01 Morbid (severe) obesity due to excess calories; Z68.42 Body mass index [BMI] 45.0-49.9, adult; I25.119 Atherosclerotic heart disease of native coronary artery with unspecified angina pectoris; I10 Essential (primary) hypertension; E11.9 Type 2 diabetes mellitus without complications; E78.5 Hyperlipidemia, unspecified; E11.42 Type 2 diabetes mellitus with diabetic polyneuropathy; E11.319 Type 2 diabetes mellitus with unspecified diabetic retinopathy without macular edema; N28.9 Disorder of kidney and ureter, unspecified; M19.042 Primary osteoarthritis, left hand; M19.041 Primary osteoarthritis, right hand; M19.032 Primary osteoarthritis, left wrist; M19.031 Primary osteoarthritis, right wrist; G89.29 Other chronic pain; M54.5 Low back pain; Z86.14 Personal history of Methicillin resistant Staphylococcus aureus infection; Z95.1 Presence of aortocoronary bypass graft; Z95.5 Presence of coronary angioplasty implant and graft; Z98.890 Other specified postprocedural states; Z98.1 Arthrodesis status; Z87.442 Personal history of urinary calculi; Z87.891 Personal history of nicotine dependence; Z82.49 Family history of ischemic heart disease and other diseases of the circulatory system; Z82.3 Family history of stroke; Z80.9 Family history of malignant neoplasm, unspecified; Z79.02 Long term (current) use of antithrombotics/antiplatelets; Z79.82 Long term (current) use of aspirin; Z79.891 Long term (current) use of opiate analgesic; Z79.899 Other long term (current) drug therapy
CPT/HCPCS: 88305; 45385; 43239; J2250; J2001; J2704

== ENCOUNTER → 2020-10-04 | Outpatient (CLI) | payer MEDICARE ==
[2020-10-05 03:42] LABS: African American GFR (CKD) 53.7 (60.0-200.0); Anion Gap 13.8 mmol/L (4.00-12.00); BUN/Creat Ratio 21.18 Ratio (12.00-20.00); Calcium 9.7 mg/dL (8.7-10.3); Carbon Dioxide 24.2 mmol/L (21.6-31.8); Magnesium 1.8 mg/dL (1.5-2.4); Non-African American GFR(CKD) 46.3 (60.0-200.0); Potassium 4.8 mmol/L (3.5-5.5)
== END | disposition home or self-care (01) ==
LOC: LABWHC1 10:44
PROVIDERS: ATTEND Nurse Practitioner Adult Health
DX: I10 Essential (primary) hypertension (principal)
CPT/HCPCS: 36415; 80048; 83735

== ENCOUNTER → 2020-11-13 | Outpatient (CLI) | payer MEDICARE ==
[2020-11-14 00:03] LABS: HCT 47.9 % (39.6-50.0); HGB 15.4 g/dL (13.0-17.0); MCH 31.6 pg (27.0-32.0); MCHC 32.2 g/dL (32.0-37.0); MCV 98.4 fL (80.0-97.0); Mean Platelet Volume 12.3 fL (9.5-12.2); Platelet Count 142 X 10*3/uL (140-440); RBC 4.87 X 10*6/uL (4.40-5.60); RDW 15.2 % (11.5-14.5); WBC 7.08 X 10*3/uL (4.50-10.00)
[2020-11-14 00:38] LABS: Hemoglobin A1C 8.8 % (4.0-6.0)
[2020-11-14 05:37] LABS: % Iron Saturation 27.67 (15.00-50.00); African American GFR (CKD) 46.9 (60.0-200.0); Albumin 3.4 g/dL (3.80-4.90); Albumin/Globulin Ratio 1.48 (1.60-3.17); Anion Gap 8.9 mmol/L (4.00-12.00); BUN/Creat Ratio 20.53 Ratio (12.00-20.00); Calcium 9.2 mg/dL (8.7-10.3); Carbon Dioxide 28.1 mmol/L (21.6-31.8); Chol/HDL Ratio 4.35; Globulin 2.3 g/dL (1.6-3.3); INR 0.92 (0.90-1.11); LDL Cholesterol,Calculated 96.8 mg/dL (0.0-131.0); Magnesium 1.7 mg/dL (1.5-2.4); Non-African American GFR(CKD) 40.5 (60.0-200.0); Partial Thromboplastin Time 26.2 sec (23.5-31.0); Phosphorus 3.9 mg/dL (2.4-5.1); Potassium 4.7 mmol/L (3.5-5.5); Prothrombin Time 10.1 sec (9.9-11.9); Total Bilirubin 0.4 mg/dL (0.3-1.2); Total Protein 5.7 g/dL (6.2-8.2); VLDL Calculation 64.2 mg/dL (5.00-40.00)
[2020-11-14 06:32] LABS: Folate, Serum 10.2 ng/mL
[2020-11-14 13:31] LABS: Vitamin A 84 ug/dL (38-106)
[2020-11-14 13:32] LABS: Zinc, Serum 56 ug/dL (60-130)
[2020-11-15 08:32] LABS: Vit B1(Thiamine) 138 ug/L (38-122)
== END | disposition home or self-care (01) ==
LOC: LABWHC1 16:17
PROVIDERS: ATTEND Surgery Plastic and Reconstructive Surgery
DX: N19 Unspecified kidney failure (principal); E89.1 Postprocedural hypoinsulinemia; E55.9 Vitamin D deficiency, unspecified; D50.8 Other iron deficiency anemias; E66.01 Morbid (severe) obesity due to excess calories; K90.89 Other intestinal malabsorption; K74.1 Hepatic sclerosis; K50.90 Crohn's disease, unspecified, without complications
CPT/HCPCS: 36415; 80053; 80061; 82306; 82525; 82607; 82746; 83036; 83540; 83550; 83735; 83970; 84100; 84134; 84255; 84425; 84443; 84590; 84630; 85027; 85610; 85730

== ENCOUNTER → 2020-11-13 | Outpatient (CLI) | payer MEDICARE, OTHER ==
[2020-11-13 15:38] VITALS: BP 136/88; PULSE 90; RESP 18; TEMP 99.8; BMI 50.1
--- NOTE | 2020-11-13 15:53 | P.HPBAR ---
Bariatric H&P - History & Physicial H&P Date: 11/13/20 History & Physicial: Visit/CC: initial visit Patient initial contact: Initial weight: Initial weight in pounds: Height: 5 ft 8.5 in Initial BMI: Last weight: Current weight: 151.953 kg Current weight in pounds: 335.00 Current BMI: 50.1 [place] body weight (based on NIH guidelines): 71.214 kg Excess body weight loss: The patient is a 50 year-old M who presents for Bariatric Assessment. DATE OF SERVICE: 11/13/2020 REASON FOR CONSULTATION: Initial bariatric evaluation. HISTORY OF PRESENT ILLNESS: Luis A Walters is a 50-year-old male who comes with lifelong morbid obesity. He has severe obstructive sleep apnea. His c ardiologist is Dr. Mallory. His highest weight is present. Her past diet plans include cutting back on calories. His most weight loss is 20 pounds with immediate weight gain. He has gastroesophageal reflux disease. He had triple bypass and 7 cardiac stents. His nieces have lost weight. He has family members with weight loss. He presents first time in consultation for management of his morbid obesity. At height of 5 feet 8.5 inches, his ideal body weight is 163 pounds. His highest and present weight is 334 pounds. His body mass index is 50.2. He is 171 pounds overweight. PAST MEDICAL HISTORY: 1. Morbid obesity due to excess calories 2. Body mass index of 50.2, initial 3. Diabetes type 2, insulin dependent 4. Coronary artery disease 5. Hyperlipidemia 6. Hypertensive heart disease 7. Diabetic neuropathy 8. Diabetic retinopathy 9. Nephrolithiasis 10. Chronic lower back pain 11. Vertigo 12. MRSA 13. Obstructive sleep apnea PAST SURGICAL HISTORY: 1. Cardiac catheterization with stent placement 2. Lumbar fusion 3. Colonoscopy HOME MEDICATIONS: Home Medications Medication Instructions Recorded Confirmed Sertraline [Zoloft] 50 mg PO HS 06/05/18 11/13/20 Meclizine [Antivert] 25 mg PO TID 08/12/18 11/13/20 Metoprolol Tartrate [Lopressor] 100 mg PO BID 08/12/18 11/13/20 Aspirin EC [Ecotrin Low Dose] 81 mg PO DAILY 10/18/18 11/13/20 HYDROcodone/APAP 10-325MG [[place] 1 tab PO Q4H PRN 06/13/19 11/13/20 10-325] Montelukast [Singulair] 10 mg PO HS 06/13/19 11/13/20 Omeprazole [PriLOSEC] 40 mg PO BID 06/13/19 11/13/20 Albuterol Inhaler [Ventolin Hfa 1 puff INHALATION RT-Q6H PRN 12/24/19 11/13/20 Inhaler] Fenofibrate [Lofibra] 160 mg PO HS 12/24/19 11/13/20 Isosorbide Mononitrate ER [Imdur] 60 mg PO QAM 12/24/19 11/13/20 lisinopriL [Zestril] 10 mg PO QAM 12/24/19 11/13/20 Insulin Aspart [NovoLOG] 40 units SQ TID-W/MEALS 08/26/20 11/13/20 Insulin Glargine [Lantus Vial] 80 unit SQ HS 08/26/20 11/13/20 Pregabalin [Lyrica] 100 mg PO BID 08/26/20 11/13/20 Previous Rx's Medication Instructions Recorded Atorvastatin [Lipitor] 80 mg PO HS #30 tab 08/12/17 Clopidogrel [Plavix] 75 mg PO DAILY #30 tablet 08/12/17 ALLERGIES: Allergies Allergy/AdvReac Type Severity Reaction Status Date / Time No Known Allergies Allergy Verified 11/13/20 15:39 SOCIAL HISTORY: Past tobacco use and alcohol abuse. FAMILY HISTORY: No family history of ulcerative colitis disease or Crohn's disease. No lupus in the family. No reports of stomach or esophageal cancer. Has family history with morbid obesity. REVIEW OF ORGAN SYSTEMS: CONSTITUTIONAL: At height of 5 feet 8.5 inches, his ideal body weight is 163 pounds. His highest and present weight is 334 pounds. His body mass index is 50.2. He is 171 pounds overweight. HEENT: Denies any active troubles with vision or hearing. ENDOCRINE: Has diabetes insulin dependent. No hypothyroidism. CARDIOVASCULAR: Has hypertensive heart disease and congestive heart failure. Has hyperlipidemia. RESPIRATORY: Has asthma. Has chronic obstructive pulmonary disease. GASTROINTESTINAL: Denies any bright red blood per rectum. No diarrhea. No constipation. Has gastroesophageal reflux disease. GENITOURINARY: No recent blood in urine MUSCULOSKELETAL: Has lower back pain and joint pain. NEURO: No headaches. No seizure disorders. Has neuropathy. PSYCH: Has depression. No suicidal ideation. RHEUMATOLOGIC: No lupus. No rheumatoid arthritis. HEMATOLOGIC: Denies any abnormal bleeding or bruising. SKIN: No rash. No skin cancer. PHYSICAL EXAM: VITAL SIGNS: Height 5 foot 8.5 inches, weight 334 pounds. BMI 50.2 Vital Signs Temp 99.8 F H 11/13/20 15:32 Pulse 90 11/13/20 15:32 Resp 18 11/13/20 15:32 BP 136/88 11/13/20 15:32 Pulse Ox GENERAL: Well-developed in no acute distress. HEENT: No scleral icterus. Extraocular movements grossly intact. Hears conversational speech. No nasal drainage. NECK: Supple without lymphadenopathy. CHEST: Nonlabored respirations with equal bilateral excursions. CARDIOVASCULAR: Regular rate and regular rhythm. Distal 2+ pulses. ABDOMEN: Obese, soft, nontender, nondistended. MUSCULOSKELETAL: No clubbing, cyanosis. NEURO: No focal or lateralizing signs. Cranial nerves 2 through 12 grossly within normal limits. PSYCH: Appropriate affect. Alert and oriented to person, place and time. SKIN: Good skin turgor. Well perfused. ASSESSMENT: 1. Morbid obesity due to excess calories 2. Body mass index of 50.2, initial 3. Diabetes type 2, insulin dependent 4. Coronary artery disease 5. Hyperlipidemia 6. Hypertensive heart disease 7. Diabetic neuropathy 8. Diabetic retinopathy 9. Nephrolithiasis 10. Chronic lower back pain 11. Vertigo 12. MRSA 13. Obstructive sleep apnea PLAN: 1. Surgical options including a band, gastric bypass, sleeve gastrectomy were described in detail. He is looking into the sleeve gastrectomy. 2. The [place] bariatric surgical collaborative data and outcomes calculator were described with surgical options. 3. Recommend a bariatric metabolic panel to evaluate for micro- including macronutrient deficiencies. 4. For history of daytime somnolence, recommend evaluation and treatment for sleep apnea. 5. Dietary surveillance and counseling was reviewed. Increased protein intake over 65 grams daily advised. 6. Will need cardiac risk assessment. 7. Recommend medical risk assessment. 8. Psych assessment per insurance guidelines. 9. Recommend upper endoscopy. 10. Recommend 12-lead EKG. 11. Recommend urine nicotine testing for history of tobacco abuse disorder 12. Recommend urine drug screen 13. Recommend colonoscopy 14. Referral to brim setter for severe sleep apnea. 15. He is elevated risk for procedures with severe sleep apnea. Thank you for this consultation. Past Medical History Past Medical History: Coronary Artery Disease (CAD), Diabetes Mellitus, Hyperlipidemia, Hypertension, Renal Disease Additional Past Medical History / Comment(s): IDDM type II, neuropathy bilateral hands/feet, retinopathy bilateral eyes, nephrolithiasis, arthritis bilateral hands/wrists, chronic lumbar back pain, vertigo at times. Last Myocardial Infarction Date:: 11/02/16, 08/02/17 History of Any Multi-Drug Resistant Organisms: MRSA Year Discovered:: 10/08/2018 MDRO Source:: left lower leg Past Surgical History: Back Surgery, Coronary Bypass/CABG, Heart Catheterization With Stent, Orthopedic Surgery Additional Past Surgical History / Comment(s): PCI with stents, 3V CABG 07/2017, kidney stone basketing, failed L4-L5 fusion x2, colonoscopy Past Anesthesia/Blood Transfusion Reactions: No Reported Reaction Date of Last Stent Placement:: 08/2018 Past Psychological History: No Psychological Hx Reported Additional Psychological History / Comment(s): Pt resides with his spouse. He is independent. He has a glucometer. Smoking Status: Former smoker Past Alcohol Use History: None Reported Additional Past Alcohol Use History / Comment(s): Pt started smoking at the age of 17 yrs (1986) and quit in 2017 after open heart. pt reports no longer drinking daily after CABG Past Drug Use History: None Reported - Past Family History Father Family Medical History: Congestive Heart Failure (CHF), Coronary Artery Disease (CAD), CVA/TIA, Myocardial Infarction ([place]) Additional Family Medical History / Comment(s): Father at the age of 63 yrs. Pt doesn't recall age of father's [place]. Mother Family Medical History: Cancer Additional Family Medical History / Comment(s): Mother had multiple cancers. She is living. Surgical - Exam Vital Signs Temp Pulse Resp BP 99.8 F H 90 18 136/88 11/13/20 15:32 11/13/20 15:32 11/13/20 15:32 11/13/20 15:32 Bariatric Checklist Checklist: Plan: Checklist: EGD: 1. Hiatal hernia: 2. H. Pylori: HgbA1c: Vitamin D: Smoking: Former smoker Primary care physician referral: Dr. Araujo Psychiatry clearance: Cardiology clearance: Sleep study: Diet journal: VTE risk score: VTE risk level: Rehab needs at discharge:
== END ==
LOC: BARWHC3 15:19
PROVIDERS: ATTEND Surgery Plastic and Reconstructive Surgery
DX: E66.01 Morbid (severe) obesity due to excess calories (principal); I25.10 Atherosclerotic heart disease of native coronary artery without angina pectoris; E78.5 Hyperlipidemia, unspecified; I11.9 Hypertensive heart disease without heart failure; E11.40 Type 2 diabetes mellitus with diabetic neuropathy, unspecified; E11.319 Type 2 diabetes mellitus with unspecified diabetic retinopathy without macular edema; N20.0 Calculus of kidney; G89.29 Other chronic pain; M54.5 Low back pain; R42 Dizziness and giddiness; A49.02 Methicillin resistant Staphylococcus aureus infection, unspecified site; Z68.43 Body mass index [BMI] 50.0-59.9, adult; Z79.899 Other long term (current) drug therapy; Z79.82 Long term (current) use of aspirin; Z79.4 Long term (current) use of insulin; Z87.891 Personal history of nicotine dependence
CPT/HCPCS: 99203

== ENCOUNTER → 2021-03-03 | Outpatient (CLI) | payer MEDICARE, OTHER ==
[2021-03-03 14:20] VITALS: BMI 52.6
== END ==
LOC: BARWHC3 08:46
PROVIDERS: ATTEND Surgery Plastic and Reconstructive Surgery
DX: E66.01 Morbid (severe) obesity due to excess calories (principal); Z71.3 Dietary counseling and surveillance; Z68.43 Body mass index [BMI] 50.0-59.9, adult; Z87.891 Personal history of nicotine dependence
CPT/HCPCS: 97804

== ENCOUNTER 2021-03-17 13:12 | Inpatient (IN) | payer MEDICARE, OTHER ==
[2021-03-17] MEDS ORDERED: NITROGLYCERIN OINT 1 INCH/GM PACKET TOPICAL STA (13:35)
[2021-03-17] MEDS ORDERED: FUROSEMIDE 10 MG/ML 4 ML VIAL IV STA (13:35)
--- NOTE | 2021-03-17 13:43 | ED ---
General Adult HPI - General Chief complaint: Shortness of Breath Stated complaint: swelling Time Seen by Provider: 03/17/21 13:25 Source: patient, RN notes reviewed Mode of arrival: ambulatory Limitations: no limitations - History of Present Illness Initial comments: Patient is a pleasant 51-year-old male presenting to the emergency department with concerns for leg edema. Onset of symptoms was a couple of weeks ago. Patient states has progressed. Patient is starting to creep up to his scrotum as well as lower abdomen. Patient does admit to having some mild dyspnea, worsen with exertion. No history of previous similar dyspnea. Patient does nelson ve cardiac history with 7 previous stents and previous CABG. No history of CHF. - Related Data Home Medications Medication Instructions Recorded Confirmed Sertraline [Zoloft] 50 mg PO HS 06/05/18 03/03/21 Meclizine [Antivert] 25 mg PO TID 08/12/18 03/03/21 Metoprolol Tartrate [Lopressor] 100 mg PO BID 08/12/18 03/03/21 Aspirin EC [Ecotrin Low Dose] 81 mg PO DAILY 10/18/18 03/03/21 HYDROcodone/APAP 10-325MG [[place] 1 tab PO Q4H PRN 06/13/19 03/03/21 10-325] Montelukast [Singulair] 10 mg PO HS 06/13/19 03/03/21 Omeprazole [PriLOSEC] 40 mg PO BID 06/13/19 03/03/21 Albuterol Inhaler [Ventolin Hfa 1 puff INHALATION RT-Q6H PRN 12/24/19 03/03/21 Inhaler] Fenofibrate [Lofibra] 160 mg PO HS 12/24/19 03/03/21 Isosorbide Mononitrate ER [Imdur] 60 mg PO QAM 12/24/19 03/03/21 lisinopriL [Zestril] 10 mg PO QAM 12/24/19 03/03/21 Insulin Aspart [NovoLOG] 40 units SQ TID-W/MEALS 08/26/20 03/03/21 Insulin Glargine [Lantus Vial] 80 unit SQ HS 08/26/20 03/03/21 Pregabalin [Lyrica] 100 mg PO BID 08/26/20 03/03/21 Previous Rx's Medication Instructions Recorded Atorvastatin [Lipitor] 80 mg PO HS #30 tab 08/12/17 Clopidogrel [Plavix] 75 mg PO DAILY #30 tablet 08/12/17 Allergies Allergy/AdvReac Type Severity Reaction Status Date / Time No Known Allergies Allergy Verified 03/17/21 15:32 Review of Systems ROS Statement: Those systems with pertinent positive or pertinent negative responses have been documented in the HPI. ROS Other: All systems not noted in ROS Statement are negative. Constitutional: Denies: fever Eyes: Denies: eye pain ENT: Denies: ear pain Respiratory: Reports: as per HPI, dyspnea Cardiovascular: Reports: dyspnea on exertion, edema. Denies: chest pain Endocrine: Denies: fatigue Gastrointestinal: Denies: abdominal pain Genitourinary: Denies: dysuria Musculoskeletal: Denies: back pain Skin: Denies: rash Neurological: Denies: weakness Past Medical History Past Medical History: Coronary Artery Disease (CAD), Diabetes Mellitus, Hyperlipidemia, Hypertension, Renal Disease Additional Past Medical History / Comment(s): IDDM type II, neuropathy bilateral hands/feet, retinopathy bilateral eyes, nephrolithiasis, arthritis bilateral hands/wrists, chronic lumbar back pain, vertigo at times. Last Myocardial Infarction Date:: 11/02/16, 08/02/17 History of Any Multi-Drug Resistant Organisms: MRSA Date of last positivie culture/infection: 02/05/21 MDRO Source:: MRSA LEG Past Surgical History: Back Surgery, Coronary Bypass/CABG, Heart Catheterization With Stent, Orthopedic Surgery Additional Past Surgical History / Comment(s): PCI with stents, 3V CABG 07/2017, kidney stone basketing, failed L4-L5 fusion x2, colonoscopy Past Anesthesia/Blood Transfusion Reactions: No Reported Reaction Date of Last Stent Placement:: 08/2018 Past Psychological History: No Psychological Hx Reported Smoking Status: Former smoker Past Alcohol Use History: Occasional Past Drug Use History: None Reported - Past Family History Father Family Medical History: Congestive Heart Failure (CHF), Coronary Artery Disease (CAD), CVA/TIA, Myocardial Infarction ([place]) Additional Family Medical History / Comment(s): Father at the age of 63 yrs. Pt doesn't recall age of father's [place]. Mother Family Medical History: Cancer Additional Family Medical History / Comment(s): Mother had multiple cancers. She is living. General Exam Limitations: no limitations General appearance: alert, in no apparent distress Head exam: Present: normocephalic Eye exam: Present: normal appearance Neck exam: Present: normal inspection Respiratory exam: Present: normal lung sounds bilaterally Cardiovascular Exam: Present: normal rhythm, tachycardia GI/Abdominal exam: Present: soft. Absent: tenderness exam: Present: scrotal swelling. Absent: testicular tenderness Extremities exam: Present: pedal edema. Absent: calf tenderness Neurological exam: Present: alert Psychiatric exam: Present: normal affect, normal mood Skin exam: Present: normal color Course Vital Signs 03/17/21 13:13 Temperature 97.6 F Pulse Rate 129 H Respiratory 22 Rate Blood Pressure 162/98 O2 Sat by Pulse 97 Oximetry EKG Findings - EKG Comments: EKG Findings:: Sinus tachycardia with rate of 125. NM 146. QRS 92. QT 310. QTc 447. Normal axis. Q wave in lead III. Poor R-wave progression. No acute ST change. Medical Decision Making - Medical Decision Making Patient reevaluated and resting comfortably in bed. Case was discussed with Dr. Mallory who states patient did gain 4050 pounds over the past couple of months. He states he is not on-call for the hospital however. Case was discussed with Dr. Gibson, who will admit covering Dr. Orta. She would like heparin. - Lab Data Result diagrams: 03/17/21 14:03 03/17/21 14:03 Lab Results 03/17/21 03/17/21 03/17/21 Range/Units 14:03 14:03 14:03 WBC 8.9 (3.8-10.6) k/uL RBC 4.73 (4.30-5.90) m/uL Hgb 15.5 (13.0-17.5) gm/dL Hct 45.5 (39.0-53.0) % MCV 96.2 (80.0-100.0) fL MCH 32.7 (25.0-35.0) pg MCHC 34.0 (31.0-37.0) g/dL RDW 14.4 (11.5-15.5) % Plt Count 175 (150-450) k/uL MPV 10.0 Neutrophils % 66 % Lymphocytes % 17 % Monocytes % 10 % Eosinophils % 3 % Basophils % 1 % Neutrophils # 5.9 (1.3-7.7) k/uL Lymphocytes # 1.5 (1.0-4.8) k/uL Monocytes # 0.9 (0-1.0) k/uL Eosinophils # 0.3 (0-0.7) k/uL Basophils # 0.1 (0-0.2) k/uL Poikilocytosis Slight PT 9.8 (9.0-12.0) sec INR 0.9 (<1.2) APTT 24.3 (22.0-30.0) sec Sodium 138 (137-145) mmol/L Potassium 3.9 (3.5-5.1) mmol/L Chloride 106 (98-107) mmol/L Carbon Dioxide 29 (22-30) mmol/L Anion Gap 3 mmol/L BUN 31 H (9-20) mg/dL Creatinine 2.04 H (0.66-1.25) mg/dL Est GFR (CKD-EPI)AfAm 43 (>60 ml/min/1.73 sqM) Est GFR (CKD-EPI)NonAf 37 (>60 ml/min/1.73 sqM) Glucose 97 (74-99) mg/dL Plasma Lactic Acid [place] (0.7-2.0) mmol/L Calcium 8.9 (8.4-10.2) mg/dL Magnesium 1.5 L (1.6-2.3) mg/dL Total Bilirubin 0.6 (0.2-1.3) mg/dL AST 31 (17-59) U/L ALT 24 (4-49) U/L Alkaline Phosphatase 121 (38-126) U/L Troponin I (0.000-0.034) ng/mL NT-Pro-B Natriuret Pep pg/mL Total Protein 5.9 L (6.3-8.2) g/dL Albumin 2.9 L (3.5-5.0) g/dL Free T4 0.78 (0.78-2.19) ng/dL Free T3 pg/mL 4.4 (2.8-5.3) pg/ml 03/17/21 03/17/21 03/17/21 Range/Units 14:03 14:03 14:03 WBC (3.8-10.6) k/uL RBC (4.30-5.90) m/uL Hgb (13.0-17.5) gm/dL Hct (39.0-53.0) % MCV (80.0-100.0) fL MCH (25.0-35.0) pg MCHC (31.0-37.0) g/dL RDW (11.5-15.5) % Plt Count (150-450) k/uL MPV Neutrophils % % Lymphocytes % % Monocytes % % Eosinophils % % Basophils % % Neutrophils # (1.3-7.7) k/uL Lymphocytes # (1.0-4.8) k/uL Monocytes # (0-1.0) k/uL Eosinophils # (0-0.7) k/uL Basophils # (0-0.2) k/uL Poikilocytosis PT (9.0-12.0) sec INR (<1.2) APTT (22.0-30.0) sec Sodium (137-145) mmol/L Potassium (3.5-5.1) mmol/L Chloride (98-107) mmol/L Carbon Dioxide (22-30) mmol/L Anion Gap mmol/L BUN (9-20) mg/dL Creatinine (0.66-1.25) mg/dL Est GFR (CKD-EPI)AfAm (>60 ml/min/1.73 sqM) Est GFR (CKD-EPI)NonAf (>60 ml/min/1.73 sqM) Glucose (74-99) mg/dL Plasma Lactic Acid [place] 1.3 (0.7-2.0) mmol/L Calcium (8.4-10.2) mg/dL Magnesium (1.6-2.3) mg/dL Total Bilirubin (0.2-1.3) mg/dL AST (17-59) U/L ALT (4-49) U/L Alkaline Phosphatase (38-126) U/L Troponin I 0.074 H* (0.000-0.034) ng/mL NT-Pro-B Natriuret Pep 677 pg/mL Total Protein (6.3-8.2) g/dL Albumin (3.5-5.0) g/dL Free T4 (0.78-2.19) ng/dL Free T3 pg/mL (2.8-5.3) pg/ml - Radiology Data Radiology results: report reviewed (Bilateral lower extremity ultrasound is suboptimal, no definitive DVT.), image reviewed Disposition Clinical Impression: Congestive heart failure Disposition: ADMITTED IP TO THIS [facility] Condition: Serious Referrals: Guzman Araujo MD [Primary Care Provider] - 1-2 days Decision Time: 15:35
[2021-03-17 14:17] LABS: Basophils # (A) 0.1 k/uL (0-0.2); Basophils % (A) 1 %; Eosinophils # (A) 0.3 k/uL (0-0.7); Eosinophils % (A) 3 %; HCT 45.5 % (39.0-53.0); HGB 15.5 gm/dL (13.0-17.5); Lymphocytes # (A) 1.5 k/uL (1.0-4.8); Lymphocytes % (A) 17 %; MCH 32.7 pg (25.0-35.0); MCV 96.2 fL (80.0-100.0); Monocytes # (A) 0.9 k/uL (0-1.0); Monocytes % (A) 10 %; Neutrophils # (A) 5.9 k/uL (1.3-7.7); Neutrophils % (A) 66 %; Platelet Count 175 k/uL (150-450); Poikilocytosis Slight; RBC 4.73 m/uL (4.30-5.90); RDW 14.4 % (11.5-15.5); WBC 8.9 k/uL (3.8-10.6)
[2021-03-17 14:35] LABS: Albumin 2.9 g/dL (3.5-5.0); Calcium 8.9 mg/dL (8.4-10.2); Magnesium 1.5 mg/dL (1.6-2.3); Potassium 3.9 mmol/L (3.5-5.1); Total Bilirubin 0.6 mg/dL (0.2-1.3); Total Protein 5.9 g/dL (6.3-8.2)
[2021-03-17 14:45] LABS: INR 0.9 (<1.2); Partial Thromboplastin Time 24.3 sec (22.0-30.0); Prothrombin Time 9.8 sec (9.0-12.0)
[2021-03-17 14:50] LABS: T4, Free (Free Thyroxine) 0.78 ng/dL (0.78-2.19)
--- NOTE | 2021-03-17 15:19 | US ---
EXAMINATION TYPE: US venous doppler duplex LE DATE OF EXAM: 03/17/2021 2:55 PM COMPARISON: NONE CLINICAL HISTORY: swelling. Bilateral swelling for the past few weeks SIDE PERFORMED: Bilateral TECHNIQUE: The lower extremity deep venous system is examined utilizing real time linear array sonog man with graded compression, doppler sonography and color-flow sonography. VESSELS IMAGED: Common Femoral Vein Deep Femoral Vein Greater Saphenous Vein * Femoral Vein Popliteal Vein Small Saphenous Vein * Proximal Calf Veins (* superficial vessels) Limited due to patient body habitus. Right Leg: Negative for DVT Left Leg: Negative for DVT Grayscale, color doppler, spectral doppler imaging performed of the deep veins of the bilateral lower extremities. There is normal flow, compressibility, vascular waveforms. IMPRESSION: Suboptimal study without convincing evidence for acute DVT in either lower extremity.
[2021-03-17] MEDS ORDERED: ASPIRIN 325 MG TAB PO STA (15:35)
[2021-03-17] MEDS ORDERED: HEPARIN SODIUM 1,000 UN/ML (10ML VL) IV ONE (15:38)
[2021-03-17] MEDS ORDERED: HEPARIN SODIUM 1,000 UN/ML (10ML VL) IV PRN (15:38)
--- NOTE | 2021-03-17 15:39 | XR ---
EXAMINATION TYPE: XR chest 2V DATE OF EXAM: 03/17/2021 COMPARISON: Chest x-ray 12/24/2019 HISTORY: Difficulty breathing TECHNIQUE: Frontal and lateral views of the chest are obtained. FINDINGS: There is no focal air space opacity, pleural effusion, or pneumothorax seen. The cardiac silhouette size is stable. Patient is post median sternotomy. The osseous structures are intact. IMPRESSION: No acute cardiopulmonary process.
[2021-03-17] MEDS ORDERED: HEPARIN SOD,PORK IN 0.45% NACL 25,000 UNIT in 0.45% NACL 1 250ML.BAG IV SCH (15:45)
[2021-03-17] MEDS: INSULIN ASPART (NovoLOG) 100 UNIT/ML VIAL SQ SCH (18:08)
[2021-03-17] MEDS: NITROGLYCERIN OINT 1 INCH/GM PACKET TOPICAL SCH ×2 (18:09→20:27)
[2021-03-17 20:25] LABS: Glucose,Whole Blood 144 mg/dL (75-99)
[2021-03-17] MEDS: lisinopriL 10 MG TAB PO SCH (20:27)
[2021-03-17] MEDS: FUROSEMIDE 10 MG/ML 4 ML VIAL IV SCH (20:27)
[2021-03-17] MEDS ORDERED: ALBUTEROL NEBULIZED 2.5 MG/3 ML INHALATION PRN (20:36)
[2021-03-17] MEDS ORDERED: METOPROLOL TARTRATE 50 MG TAB PO SCH (21:00)
[2021-03-17] MEDS: FENOFIBRATE 160 MG TAB PO SCH (21:22)
[2021-03-17] MEDS: SERTRALINE 50 MG TAB PO SCH (21:22)
[2021-03-17] MEDS: MECLIZINE 25 MG TAB PO SCH (21:22)
[2021-03-17] MEDS: INSULIN DETEMIR (LEVEMIR) 100 UNIT/ML SYR SQ SCH (21:22)
[2021-03-17] MEDS: PREGABALIN 75 MG CAP PO SCH (21:22)
[2021-03-17] MEDS: PANTOPRAZOLE 40 MG TABLET PO SCH (21:22)
[2021-03-17] MEDS: MONTELUKAST 10 MG TAB PO SCH (21:22)
[2021-03-18] MEDS ORDERED: ALBUTEROL NEBULIZED 2.5 MG/3 ML INHALATION PRN (03:00)
[2021-03-18] MEDS: ALBUTEROL HFA INHALER INHALATION PRN (03:07)
[2021-03-18 04:22] LABS: Basophils # (A) 0.1 k/uL (0-0.2); Basophils % (A) 1 %; Eosinophils # (A) 0.2 k/uL (0-0.7); Eosinophils % (A) 3 %; HGB 15.3 gm/dL (13.0-17.5); Lymphocytes # (A) 1.4 k/uL (1.0-4.8); Lymphocytes % (A) 16 %; MCHC 33.4 g/dL (31.0-37.0); MCV 98.8 fL (80.0-100.0); Mean Platelet Volume 9.6; Monocytes # (A) 0.7 k/uL (0-1.0); Monocytes % (A) 8 %; Neutrophils # (A) 6.2 k/uL (1.3-7.7); Neutrophils % (A) 69 %; Platelet Count 162 k/uL (150-450); Poikilocytosis Slight; RBC 4.65 m/uL (4.30-5.90); RDW 14.6 % (11.5-15.5); WBC 8.9 k/uL (3.8-10.6)
[2021-03-18 04:23] LABS: Partial Thromboplastin Time 31.5 sec (22.0-30.0); Prothrombin Time 10.3 sec (9.0-12.0)
[2021-03-18] MEDS: FUROSEMIDE 10 MG/ML 4 ML VIAL IV SCH (05:02)
[2021-03-18 05:34] LABS: Glucose,Whole Blood 163 mg/dL (75-99)
[2021-03-18] MEDS: PANTOPRAZOLE 40 MG TABLET PO SCH ×2 (06:30→17:35)
[2021-03-18] MEDS: INSULIN ASPART (NovoLOG) 100 UNIT/ML VIAL SQ SCH ×3 (06:30→17:27)
[2021-03-18] MEDS ORDERED: INSULIN ASPART (NovoLOG) 100 UNIT/ML VIAL SQ SCH (07:30)
[2021-03-18] MEDS ORDERED: FUROSEMIDE 40 MG TAB PO SCH (09:00)
[2021-03-18] MEDS ORDERED: ASPIRIN 325 MG TAB PO SCH (09:00)
[2021-03-18] MEDS: ISOSORBIDE MONONITRATE ER 60 MG TAB.ER.24H PO SCH (09:10)
[2021-03-18] MEDS: MECLIZINE 25 MG TAB PO SCH ×3 (09:10→20:09)
[2021-03-18] MEDS: CLOPIDOGREL 75 MG TAB PO SCH (09:10)
[2021-03-18] MEDS: ASPIRIN 81 MG PO SCH (09:10)
[2021-03-18] MEDS: METOPROLOL TARTRATE 50 MG TAB PO SCH ×2 (09:10→20:09)
[2021-03-18] MEDS: HYDROcodone/APAP 10-325MG 1 EACH TAB PO PRN ×3 (09:11→22:35)
[2021-03-18] MEDS: PREGABALIN 75 MG CAP PO SCH ×2 (09:11→20:09)
[2021-03-18 09:57] LABS: Glucose,Whole Blood 161 mg/dL (75-99)
--- NOTE | 2021-03-18 10:09 | P.NPCON ---
History of Present Illness - Reason for Consult acute renal failure, chronic renal failure - History of Present Illness Reason for consultation: Acute kidney injury on chronic kidney disease History of present illness: Patient is a 51-year-old male seen in consultation for acute kidney injury on chronic kidney disease. patient's creatinine earlier this year was near 1.7 and is elevated at 2.04 to this admission. Patient states he has history of coronary artery disease with multiple stents as well as CABG in the past. He states that he was taken off Lasix and since then has gained nearly 40 pounds with worsening of swelling in his lower extremities as well as scrotum. Patient states he was started back on Lasix 40 mg once daily about a week ago but hasn't noticed any improvement in the swelling. He denies any hematuria or dysuria. No vomiting or diarrhea. Oral intake is good. He does drink quite a bit of fluids. He has long-standing history of diabetes. Denies regular use of nonsteroidals. Blood pressure stable. Echocardiogram is pending. His prior echocardiogram showed preserved ejection fraction. Vital signs are stable. General: The patient appeared well nourished and normally developed. HEENT: Head exam is unremarkable. LUNGS: Breath sounds decreased. HEART: Tachycardic. ABDOMEN: Soft, obese. EXTREMITITES: 2+ edema. Chronic changes noted. Past Medical History Past Medical History: Coronary Artery Disease (CAD), Diabetes Mellitus, Hyperlipidemia, Hypertension, Renal Disease Additional Past Medical History / Comment(s): IDDM type II, neuropathy bilateral hands/feet, retinopathy bilateral eyes, nephrolithiasis, arthritis bilateral hands/wrists, chronic lumbar back pain, vertigo at times. Last Myocardial Infarction Date:: 11/02/16, 08/02/17 History of Any Multi-Drug Resistant Organisms: MRSA Date of last positivie culture/infection: 02/05/21 MDRO Source:: MRSA LEG Past Surgical History: Back Surgery, Coronary Bypass/CABG, Heart Catheterization With Stent, Orthopedic Surgery Additional Past Surgical History / Comment(s): PCI with stents, 3V CABG 07/2017, kidney stone basketing, failed L4-L5 fusion x2, colonoscopy Past Anesthesia/Blood Transfusion Reactions: No Reported Reaction Date of Last Stent Placement:: 08/2018 Past Psychological History: No Psychological Hx Reported Additional Psychological History / Comment(s): Pt resides with his spouse. He is independent. He has a glucometer. Smoking Status: Former smoker Past Alcohol Use History: Occasional Additional Past Alcohol Use History / Comment(s): Pt started smoking at the age of 17 yrs (1986) and quit in 2018 after open heart. pt reports no longer drinking daily after CABG Past Drug Use History: None Reported - Past Family History Father Family Medical History: Congestive Heart Failure (CHF), Coronary Artery Disease (CAD), CVA/TIA, Myocardial Infarction (AR) Additional Family Medical History / Comment(s): Father at the age of 63 yrs. Pt doesn't recall age of father's AR. Mother Family Medical History: Cancer Additional Family Medical History / Comment(s): Mother had multiple cancers. She is living. Medications and Allergies Home Medications Medication Instructions Recorded Confirmed Type Atorvastatin [Lipitor] 80 mg PO HS #30 tab 08/12/17 03/17/21 Rx Clopidogrel [Plavix] 75 mg PO DAILY #30 tablet 08/12/17 03/17/21 Rx Sertraline [Zoloft] 50 mg PO HS 06/05/18 03/17/21 History Meclizine [Antivert] 25 mg PO TID 08/12/18 03/17/21 History Metoprolol Tartrate [Lopressor] 100 mg PO BID 08/12/18 03/17/21 History Aspirin EC [Ecotrin Low Dose] 81 mg PO DAILY 10/18/18 03/17/21 History HYDROcodone/APAP 10-325MG [[place] 1 tab PO Q4H PRN 06/13/19 03/17/21 History 10-325] Montelukast [Singulair] 10 mg PO HS 06/13/19 03/17/21 History Omeprazole [PriLOSEC] 40 mg PO BID 06/13/19 03/17/21 History Albuterol Inhaler [Ventolin Hfa 2 puff INHALATION RT-Q6H PRN 12/24/19 03/17/21 History Inhaler] Fenofibrate [Lofibra] 160 mg PO HS 12/24/19 03/17/21 History Isosorbide Mononitrate ER [Imdur] 60 mg PO DAILY 12/24/19 03/17/21 History lisinopriL [Zestril] 10 mg PO HS 12/24/19 03/17/21 History Insulin Aspart [NovoLOG] 40 units SQ TID-W/MEALS 08/26/20 03/17/21 History Insulin Glargine [Lantus Vial] 80 unit SQ HS 08/26/20 03/17/21 History Ergocalciferol [Vitamin D2 (1250 1,250 mcg PO STALLINGS 03/17/21 03/17/21 History Mcg = 24728 Iu)] Furosemide [Lasix] 40 mg PO DAILY 03/17/21 03/17/21 History Pregabalin [Lyrica] 150 mg PO BID 03/17/21 03/17/21 History Allergies Allergy/AdvReac Type Severity Reaction Status Date / Time No Known Allergies Allergy Verified 03/17/21 15:32 Physical Exam Vitals: Vital Signs Temp Pulse Pulse Resp BP BP Pulse Ox 03/18/21 08:00 97.8 F 123 H 18 147/98 93 L 03/18/21 03:03 98.1 F 122 H 23 165/89 96 03/18/21 00:00 98.2 F 122 H 18 155/65 98 03/17/21 20:00 98.2 F 130 H 18 160/85 98 03/17/21 15:30 124 H 20 151/97 96 03/17/21 13:13 97.6 F 129 H 22 162/98 97 Intake and Output 03/17/21 03/18/21 03/18/21 22:59 06:59 14:59 Intake Total 631.145 Balance 631.145 Intake: Intake, IV Titration 151.145 Amount Heparin Sod,Pork in 0.45% 151.145 NaCl 25,000 unit In 0.45 % NaCl 1 250ml.bag @ 6.33 UNITS/KG/HR 9.998 mls/hr IV .Q24H [facility] Rx#: [id number] Oral 480 Other: Voiding Method Toilet Toilet Urinal Urinal # Voids 1 Weight 157.941 kg Results - Lab Results Most recent lab results Calcium 8.9 mg/dL (8.4-10.2) 03/17/21 14:03 Magnesium 1.5 mg/dL (1.6-2.3) L 03/17/21 14:03 03/18/21 03:14 03/17/21 14:03 Assessment and Plan Plan: Assessment: 1. Acute kidney injury prerenal secondary to cardiorenal syndrome. Creatinine 2.04 today. 2. Chronic kidney disease stage IIIB with baseline creatinine near 1.7 in August and September 2020. 3. Volume overload. 4. Diabetes mellitus. 5. Coronary artery disease status post stenting and CABG in the past. 6. Hypertension with chronic kidney disease. Plan: Added IV Lasix 60 mg twice daily. Low-salt diet. 1500 mL fluid restriction. Daily weights. Maintain lisinopril as blood pressure is not low. Follow-up echocardiogram. Continue to monitor renal function and urine output. Check urinalysis. Check renal ultrasound. Thank you for the consultation. I will continue to follow the patient with you during his hospital stay.
--- NOTE | 2021-03-18 11:19 | US ---
EXAMINATION TYPE: US kidneys/renal and bladder DATE OF EXAM: 03/18/2021 COMPARISON: US CLINICAL HISTORY: ramila. RAMILA EXAM MEASUREMENTS: Right Kidney: 13.0 x 7.8 x 6.3 cm Left Kidney: 12.9 x 7.1 x 5.8 cm Morbidly obese pt, difficult to scan Right Kidney: No evidence of hydro, large in size as visualized on previous Left Kidney: No evidence of hydro, large in size as visualized on previous Bladder: wnl Bilateral Jets seen: No There is no evidence for hydronephrosis at this point in time. No nephrolithiasis is seen. No ana maria s are identified. Corticomedullary differentiation is maintained. The urinary bladder is anechoic. IMPRESSION: Renal sizes as described, no hydronephrosis
[2021-03-18] MEDS: FUROSEMIDE 10 MG/ML 10 ML VIAL IV SCH ×2 (11:33→20:09)
--- NOTE | 2021-03-18 11:55 | P.CRDCN ---
History of Present Illness Consult date: 03/18/21 History of present illness: HISTORY OF PRESENT ILLNESS: This is a 51-year-old male with a past medical history significant for coronary artery disease with previous CABG and subsequent stenting, hypertension, hyperlipidemia, nicotine dependence, and morbid obesity. Patient follows in the office with Dr. Mallory. We have been asked to see the patient in consultation for CHF. Patient examined at the bedside. Patient states he was taken off his lasix 6-8 weeks ago due to worsening kidney function. He reports a weight gain of about 30-40 lbs since that time. He reports increased lower extremity edema. The patient was started on IV Lasix per the emergency room physician. The patient currently denies chest pain or pressure. Denies shortness of breath. EKG reveals sinus tachycardia with a heart rate of 125. Chest xray negative for acute process Most recent echocardiogram obtained in 2018 revealed ejection fraction 45-50%. Trace mitral regurgitation. Trace tricuspid regurgitation. Cardiac catheterization history: August 2018 feeling patent OMALLEY to LAD, pain and SVG to diagonal, patent SVG to RCA. Severe disease involving the first obtuse marginal branch of left circumflex as well as the ramus intermedius area patient underwent stenting of the first obtuse marginal branch of the left circumflex. Medical management was recommended for ramus intermedius. REVIEW OF SYSTEMS: At the time of my exam: CONSTITUTIONAL: Denies fever or chills. HEENT: Denies blurred vision, vision changes, or eye pain. Denies hemoptysis CARDIOVASCULAR: Denies chest pain. Denies orthopnea. Denies PND. Denies palpitations RESPIRATORY: Denies shortness of breath. GASTROINTESTINAL: Denies abdominal pain. Denies nausea or vomiting. HEMATOLOGIC: Denies bleeding disorders. GENITOURINARY: Denies any blood in urine. SKIN: Denies pruitis. Denies rash. PHYSICAL EXAM: VITAL SIGNS: Reviewed. GENERAL: Well-developed in no acute distress. HEENT: Head is normocephalic. Pupils are equal, round. Sclerae anicteric. Mucous membranes of the mouth are moist. Neck supple. No JVD or thyromegaly LUNGS: Respirations even and unlabored. Lungs diminished to auscultation bilaterally. HEART: Regular rate and rhythm. S1 and S2 heard. ABDOMEN: Soft. Nondistended. Nontender. EXTREMITIES: Normal range of motion. No clubbing or cyanosis. Peripheral pulses intact. 2+ bilateral lower extremity edema NEUROLOGIC: Awake and alert. Oriented x 3. ASSESSMENT: Lower extremity edema, CXR w/o s/s CHF and BNP WNL Coronary artery disease with previous CABG and stenting Hypertension Hyperlipidemia Acute on chronic kidney disease Abnormal troponins, secondary to above, no evidence of acute coronary syndrome Morbid obesity Diabetes PLAN: Obtain 2-D echo to assess cardiac structure and function Continue IV Lasix Consult nephrology for evaluation Resume additional home medications Discontinue IV heparin Further recommendations pending patient's course Nurse practitioner note has been reviewed by physician. Signing provider agrees with the documented findings, assessment, and plan of care. Past Medical History Past Medical History: Coronary Artery Disease (CAD), Diabetes Mellitus, Hyperlipidemia, Hypertension, Renal Disease Additional Past Medical History / Comment(s): IDDM type II, neuropathy bilateral hands/feet, retinopathy bilateral eyes, nephrolithiasis, arthritis bilateral hands/wrists, chronic lumbar back pain, vertigo at times. Last Myocardial Infarction Date:: 11/02/16, 08/02/17 History of Any Multi-Drug Resistant Organisms: MRSA Date of last positivie culture/infection: 02/05/21 MDRO Source:: MRSA LEG Past Surgical History: Back Surgery, Coronary Bypass/CABG, Heart Catheterization With Stent, Orthopedic Surgery Additional Past Surgical History / Comment(s): PCI with stents, 3V CABG 07/2017, kidney stone basketing, failed L4-L5 fusion x2, colonoscopy Past Anesthesia/Blood Transfusion Reactions: No Reported Reaction Date of Last Stent Placement:: 08/2018 Past Psychological History: No Psychological Hx Reported Additional Psychological History / Comment(s): Pt resides with his spouse. He is independent. He has a glucometer. Smoking Status: Former smoker Past Alcohol Use History: Occasional Additional Past Alcohol Use History / Comment(s): Pt started smoking at the age of 17 yrs (1986) and quit in 2018 after open heart. pt reports no longer drinking daily after CABG Past Drug Use History: None Reported - Past Family History Father Family Medical History: Congestive Heart Failure (CHF), Coronary Artery Disease (CAD), CVA/TIA, Myocardial Infarction (AR) Additional Family Medical History / Comment(s): Father at the age of 63 yrs. Pt doesn't recall age of father's AR. Mother Family Medical History: Cancer Additional Family Medical History / Comment(s): Mother had multiple cancers. She is living. Medications and Allergies Home Medications Medication Instructions Recorded Confirmed Type Atorvastatin [Lipitor] 80 mg PO HS #30 tab 08/12/17 03/17/21 Rx Clopidogrel [Plavix] 75 mg PO DAILY #30 tablet 08/12/17 03/17/21 Rx Sertraline [Zoloft] 50 mg PO HS 06/05/18 03/17/21 History Meclizine [Antivert] 25 mg PO TID 08/12/18 03/17/21 History Metoprolol Tartrate [Lopressor] 100 mg PO BID 08/12/18 03/17/21 History Aspirin EC [Ecotrin Low Dose] 81 mg PO DAILY 10/18/18 03/17/21 History HYDROcodone/APAP 10-325MG [[place] 1 tab PO Q4H PRN 06/13/19 03/17/21 History 10-325] Montelukast [Singulair] 10 mg PO HS 06/13/19 03/17/21 History Omeprazole [PriLOSEC] 40 mg PO BID 06/13/19 03/17/21 History Albuterol Inhaler [Ventolin Hfa 2 puff INHALATION RT-Q6H PRN 12/24/19 03/17/21 History Inhaler] Fenofibrate [Lofibra] 160 mg PO HS 12/24/19 03/17/21 History Isosorbide Mononitrate ER [Imdur] 60 mg PO DAILY 12/24/19 03/17/21 History lisinopriL [Zestril] 10 mg PO HS 12/24/19 03/17/21 History Insulin Aspart [NovoLOG] 40 units SQ TID-W/MEALS 08/26/20 03/17/21 History Insulin Glargine [Lantus Vial] 80 unit SQ HS 08/26/20 03/17/21 History Ergocalciferol [Vitamin D2 (1250 1,250 mcg PO STALLINGS 03/17/21 03/17/21 History Mcg = 14684 Iu)] Furosemide [Lasix] 40 mg PO DAILY 03/17/21 03/17/21 History Pregabalin [Lyrica] 150 mg PO BID 03/17/21 03/17/21 History Allergies Allergy/AdvReac Type Severity Reaction Status Date / Time No Known Allergies Allergy Verified 03/17/21 15:32 Physical Exam Vitals: Vital Signs Temp Pulse Pulse Resp BP BP Pulse Ox 03/18/21 11:30 114 H 18 127/83 93 L 03/18/21 08:00 97.8 F 123 H 18 147/98 93 L 03/18/21 03:03 98.1 F 122 H 23 165/89 96 03/18/21 00:00 98.2 F 122 H 18 155/65 98 03/17/21 20:00 98.2 F 130 H 18 160/85 98 03/17/21 15:30 124 H 20 151/97 96 03/17/21 13:13 97.6 F 129 H 22 162/98 97 Intake and Output 03/17/21 03/18/21 03/18/21 22:59 06:59 14:59 Intake Total 631.145 Balance 631.145 Intake: Intake, IV Titration 151.145 Amount Heparin Sod,Pork in 0.45% 151.145 NaCl 25,000 unit In 0.45 % NaCl 1 250ml.bag @ 6.33 UNITS/KG/HR 9.998 mls/hr IV .Q24H [facility] Rx#: [id number] Oral 480 Other: Voiding Method Toilet Toilet Urinal Urinal # Voids 1 Weight 157.941 kg Results 03/18/21 03:14 03/17/21 14:03 Cardiac Enzymes 03/17/21 03/17/21 03/17/21 Range/Units 14:03 14:03 17:03 AST 31 (17-59) U/L Troponin I 0.074 H* 0.082 H* (0.000-0.034) ng/mL 03/17/21 03/18/21 03/18/21 Range/Units 20:19 00:24 03:14 AST (17-59) U/L Troponin I 0.075 H* 0.079 H* 0.070 H* (0.000-0.034) ng/mL Coagulation 03/17/21 03/17/21 03/18/21 Range/Units 14:03 22:25 03:14 PT 9.8 10.3 (9.0-12.0) sec APTT 24.3 26.4 31.5 H (22.0-30.0) sec CBC 03/17/21 03/18/21 Range/Units 14:03 03:14 WBC 8.9 8.9 (3.8-10.6) k/uL RBC 4.73 4.65 (4.30-5.90) m/uL Hgb 15.5 15.3 (13.0-17.5) gm/dL Hct 45.5 46.0 (39.0-53.0) % Plt Count 175 162 (150-450) k/uL Comprehensive Metabolic Panel 03/17/21 Range/Units 14:03 Sodium 138 (137-145) mmol/L Potassium 3.9 (3.5-5.1) mmol/L Chloride 106 (98-107) mmol/L Carbon Dioxide 29 (22-30) mmol/L BUN 31 H (9-20) mg/dL Creatinine 2.04 H (0.66-1.25) mg/dL Glucose 97 (74-99) mg/dL Calcium 8.9 (8.4-10.2) mg/dL AST 31 (17-59) U/L ALT 24 (4-49) U/L Alkaline Phosphatase 121 (38-126) U/L Total Protein 5.9 L (6.3-8.2) g/dL Albumin 2.9 L (3.5-5.0) g/dL Current Medications Generic Name Dose Route Start Last Admin Trade Name Freq PRN Reason Stop Dose Admin Hydrocodone Bitart/Acetaminophen 1 each 03/17/21 20:36 03/18/21 09:11 Hydrocodone/Apap 10-325mg 1 Each Tab PO 1 each Q4H PRN Administration Pain Albuterol Sulfate 2 puff 03/18/21 03:03 03/18/21 03:07 Albuterol Hfa Inhaler INHALATION 2 puff RT-QID PRN Administration Shortness Of Breath Or Wheezing Aspirin 81 mg 03/18/21 09:00 03/18/21 09:10 Aspirin 81 Mg PO 81 mg DAILY ANDRE Administration Atorvastatin Calcium 80 mg 03/18/21 21:00 Atorvastatin 80 Mg Tab PO HS ANDRE Clopidogrel Bisulfate 75 mg 03/18/21 09:00 03/18/21 09:10 Clopidogrel 75 Mg Tab PO 75 mg DAILY ANDRE Administration Ergocalciferol 1,250 mcg 03/23/21 09:00 Ergocalciferol 1,250 Mcg (50,000 Iu) Capsule PO STALLINGS ANDRE Fenofibrate 160 mg 03/17/21 21:00 03/17/21 21:22 Fenofibrate 160 Mg Tab PO 160 mg HS ANDRE Administration Furosemide 60 mg 03/18/21 10:15 03/18/21 11:33 Furosemide 10 Mg/Ml 10 Ml Vial IV 60 mg Q12HR ANDRE Administration Heparin Sodium (Porcine) 0 unit 03/17/21 15:38 Heparin Sodium 1,000 Un/Ml (10ml Vl) IV PER PROTOCOL PRN Low PTT Protocol Insulin Aspart 40 unit 03/17/21 17:30 03/18/21 06:30 Insulin Aspart (Novolog) 100 Unit/Ml Vial SQ 40 unit TID-W/MEALS ANDRE Administration Insulin Detemir 80 unit 03/17/21 21:00 03/17/21 21:22 Insulin Detemir (Levemir) 100 Unit/Ml Syr SQ 80 unit HS ANDRE Administration Isosorbide Mononitrate 60 mg 03/18/21 09:00 03/18/21 09:10 Isosorbide Mononitrate Er 60 Mg Tab.Er.24h PO 60 mg DAILY ANDRE Administration Lisinopril 10 mg 03/17/21 21:00 03/17/21 20:27 Lisinopril 10 Mg Tab PO 10 mg HS ANDRE Administration Meclizine HCl 25 mg 03/17/21 22:00 03/18/21 09:10 Meclizine 25 Mg Tab PO 25 mg TID ANDRE Administration Metoprolol Tartrate 150 mg 03/18/21 09:00 03/18/21 09:10 Metoprolol Tartrate 50 Mg Tab PO 150 mg BID ANDRE Administration Montelukast Sodium 10 mg 03/17/21 21:00 03/17/21 21:22 Montelukast 10 Mg Tab PO 10 mg HS ANDRE Administration Pantoprazole Sodium 40 mg 03/17/21 21:00 03/18/21 06:30 Pantoprazole 40 Mg Tablet PO 40 mg AC-BID ANDRE Administration Pregabalin 150 mg 03/17/21 21:00 03/18/21 09:11 Pregabalin 75 Mg Cap PO 150 mg BID ANDRE Administration Sertraline HCl 50 mg 03/17/21 21:00 03/17/21 21:22 Sertraline 50 Mg Tab PO 50 mg HS ANDRE Administration Sodium Chloride 10 ml 03/17/21 21:00 03/18/21 09:15 Sodium Chloride 0.9% Flush 10 Ml Syringe IV 10 ml BID ANDRE Administration Intake and Output 03/17/21 03/18/21 03/18/21 22:59 06:59 14:59 Intake Total 631.145 Balance 631.145 Intake: Intake, IV Titration 151.145 Amount Heparin Sod,Pork in 0.45% 151.145 NaCl 25,000 unit In 0.45 % NaCl 1 250ml.bag @ 6.33 UNITS/KG/HR 9.998 mls/hr IV .Q24H [facility] Rx#: [id number] Oral 480 Other: Voiding Method Toilet Toilet Urinal Urinal # Voids 1 Weight 157.941 kg 03/18/21 03:14 03/17/21 14:03
--- NOTE | 2021-03-18 12:08 | ECHOF ---
Referral Reason:LV function MEASUREMENTS -------- HEIGHT: 175.3 cm WEIGHT: 157.9 kg BP: 147/98 RVIDd: 4.0 cm (< 3.3) IVSd: 1.9 cm (0.6 - 1.1) LVIDd: 4.7 cm (3.9 - 5.3) LVPWd: 1.8 cm (0.6 - 1.1) IVSs: 2.4 cm LVIDs: 3.5 cm LVPWs: 2.2 cm Ao Diam: 2.8 cm (2.0 - 3.7) LA Diam: 4.3 cm (2.7 - 3.8) FINDINGS -------- Resting tachycardia (HR>100bpm). This was a technically difficult study with suboptimal views. There is severe concentric left ventricular hypertrophy. Overall left ventricular systolic function is mildly impaired with, an EF between 45 - 50 %. LV not well visulized The right ventricle is moderately enlarged. The RV was not well visualized. The left atrium was not well visualized. The right atrium was not well visualized. 5.0mg of Lumason was utilized for enhancement of images The aortic valve was not well visualized. The mitral valve was not well visualized. The tricuspid valve was not well visualized. The pulmonic valve was not well visualized. The aortic root size is normal. IVC Not well visulized. There is no pericardial effusion. CONCLUSIONS -------- 1. This was a technically difficult study with suboptimal views. 2. There is severe concentric left ventricular hypertrophy. 3. Overall left ventricular systolic function is mildly impaired with, an EF between 45 - 50 %. 4. LV not well visulized 5. The right ventricle is moderately enlarged. 6. The RV was not well visualized. 7. The aortic valve was not well visualized. [employer] BAB[employer]ITTER: Karina Villagomez RDCS
[2021-03-18 12:57] LABS: Glucose,Whole Blood 120 mg/dL (75-99)
[2021-03-18 15:31] LABS: Appearance,Urine Clear (Clear); Bilirubin,Urine Negative (Negative); Blood,Urine Trace (Negative); Color,Urine Light Yellow; Glucose,Urine (UA) Trace (Negative); Hyaline Casts,Urine 3 /lpf (0-2); Ketones,Urine Negative (Negative); Leukocyte Esterase,Urine Negative (Negative); Mucus,Urine Rare /hpf; Nitrite,Urine Negative (Negative); Protein,Urine 2+ (Negative); RBC,Urine 1 /hpf (0-5); Specific Gravity,Urine 1.008 (1.001-1.035); Squamous Epithelial Cell,Urine <1 /hpf (0-4); Urobilinogen,Urine <2.0 mg/dL (<2.0); WBC,Urine 1 /hpf (0-5)
[2021-03-18 17:20] LABS: Glucose,Whole Blood 176 mg/dL (75-99)
[2021-03-18] MEDS: lisinopriL 10 MG TAB PO SCH (20:02)
[2021-03-18] MEDS: ATORVASTATIN 80 MG TAB PO SCH (20:09)
[2021-03-18] MEDS: MONTELUKAST 10 MG TAB PO SCH (20:09)
[2021-03-18] MEDS: FENOFIBRATE 160 MG TAB PO SCH (20:09)
[2021-03-18] MEDS: SERTRALINE 50 MG TAB PO SCH (20:09)
[2021-03-18 20:10] LABS: Glucose,Whole Blood 143 mg/dL (75-99)
[2021-03-18] MEDS: INSULIN DETEMIR (LEVEMIR) 100 UNIT/ML SYR SQ SCH (20:10)
--- NOTE | 2021-03-18 21:15 | P.HPIM ---
History of Present Illness H&P Date: 03/18/21 Chief Complaint: Leg swelling Patient is a 51-year-old male with a known history of coronary artery disease status post CABG, cardiac catheterization and stent placement, hypertension, hyperlipidemia, diabetes type 2 and chronic kidney disease past nephrolithiasis and chronic low back pain, morbid obesity with a BMI 51.4 presents to ER with complaints of worsening bilateral leg swelling and increased abdominal girth. Patient has been having worsening symptoms for the past few weeks. Patient is also complaining of swelling in the scrotal area. Denies any chest pain. Patient does have extensive cardiac history with previous history of CABG and 7 stents placement. Denies any fever or chills. No cough or sputum production. No nausea vomiting or abdominal pain or diarrhea. Chest x-ray showed no acute cardiopulmonary process Venous duplex showed suboptimal study without convincing evidence of acute DVT on either lower extremity. EKG showed sinus tachycardia. Poor data quality. Laboratory data showed WBC 8.9 hemoglobin 15.5 and platelets 175 BUN 31 creatinine 2.04, magnesium 1.5, troponin 0 0.074, 0.082 and 0.075, proBNP 677 Albumin 2.9, free T4 0.78 Review of Systems Constitutional: Patient denies any fever or chills . No generalized weakness or weight loss. Abdomen: Patient denied nausea vomiting and diarrhea and abdominal pain. Cardiovascular: Patient complaining of bilateral lower extremity swelling and scrotal swelling. No chest pain. Mild shortness of breath. No palpitations.. Respiratory: patient denied any cough or sputum production. No shortness of breath Neurologic: Patient denied any numbness or tingling headache. Musculoskeletal: Patient denies any complaints of joint swelling or deformity. Skin: Negative Psychiatric: Negative Endocrine: No heat or cold intolerance. No recent weight gain. Genitourinary: No dysuria or hematuria. All other 14 point ROS negative except the above Past Medical History Past Medical History: Coronary Artery Disease (CAD), Diabetes Mellitus, Hyperlipidemia, Hypertension, Renal Disease Additional Past Medical History / Comment(s): IDDM type II, neuropathy bilateral hands/feet, retinopathy bilateral eyes, nephrolithiasis, arthritis bilateral hands/wrists, chronic lumbar back pain, vertigo at times. Last Myocardial Infarction Date:: 11/02/16, 08/02/17 History of Any Multi-Drug Resistant Organisms: MRSA Date of last positivie culture/infection: 02/05/21 MDRO Source:: MRSA LEG Past Surgical History: Back Surgery, Coronary Bypass/CABG, Heart Catheterization With Stent, Orthopedic Surgery Additional Past Surgical History / Comment(s): PCI with stents, 3V CABG 07/2017, kidney stone basketing, failed L4-L5 fusion x2, colonoscopy Past Anesthesia/Blood Transfusion Reactions: No Reported Reaction Date of Last Stent Placement:: 08/2018 Past Psychological History: No Psychological Hx Reported Additional Psychological History / Comment(s): Pt resides with his spouse. He is independent. He has a glucometer. Smoking Status: Former smoker Past Alcohol Use History: Occasional Additional Past Alcohol Use History / Comment(s): Pt started smoking at the age of 17 yrs (1986) and quit in 2018 after open heart. pt reports no longer drinking daily after CABG Past Drug Use History: None Reported - Past Family History Father Family Medical History: Congestive Heart Failure (CHF), Coronary Artery Disease (CAD), CVA/TIA, Myocardial Infarction (CA) Additional Family Medical History / Comment(s): Father at the age of 63 yrs. Pt doesn't recall age of father's CA. Mother Family Medical History: Cancer Additional Family Medical History / Comment(s): Mother had multiple cancers. She is living. Medications and Allergies Home Medications Medication Instructions Recorded Confirmed Type Atorvastatin [Lipitor] 80 mg PO HS #30 tab 08/12/17 03/17/21 Rx Clopidogrel [Plavix] 75 mg PO DAILY #30 tablet 08/12/17 03/17/21 Rx Sertraline [Zoloft] 50 mg PO HS 06/05/18 03/17/21 History Meclizine [Antivert] 25 mg PO TID 08/12/18 03/17/21 History Metoprolol Tartrate [Lopressor] 100 mg PO BID 08/12/18 03/17/21 History Aspirin EC [Ecotrin Low Dose] 81 mg PO DAILY 10/18/18 03/17/21 History HYDROcodone/APAP 10-325MG [[place] 1 tab PO Q4H PRN 06/13/19 03/17/21 History 10-325] Montelukast [Singulair] 10 mg PO HS 06/13/19 03/17/21 History Omeprazole [PriLOSEC] 40 mg PO BID 06/13/19 03/17/21 History Albuterol Inhaler [Ventolin Hfa 2 puff INHALATION RT-Q6H PRN 12/24/19 03/17/21 History Inhaler] Fenofibrate [Lofibra] 160 mg PO HS 12/24/19 03/17/21 History Isosorbide Mononitrate ER [Imdur] 60 mg PO DAILY 12/24/19 03/17/21 History lisinopriL [Zestril] 10 mg PO HS 12/24/19 03/17/21 History Insulin Aspart [NovoLOG] 40 units SQ TID-W/MEALS 08/26/20 03/17/21 History Insulin Glargine [Lantus Vial] 80 unit SQ HS 08/26/20 03/17/21 History Ergocalciferol [Vitamin D2 (1250 1,250 mcg PO STALLINGS 03/17/21 03/17/21 History Mcg = [id number] Iu)] Furosemide [Lasix] 40 mg PO DAILY 03/17/21 03/17/21 History Pregabalin [Lyrica] 150 mg PO BID 03/17/21 03/17/21 History Allergies Allergy/AdvReac Type Severity Reaction Status Date / Time No Known Allergies Allergy Verified 03/17/21 15:32 Physical Exam Vitals: Vital Signs Temp Pulse Pulse Resp BP BP Pulse Ox 03/18/21 08:00 97.8 F 123 H 18 147/98 93 L 03/18/21 03:03 98.1 F 122 H 23 165/89 96 03/18/21 00:00 98.2 F 122 H 18 155/65 98 03/17/21 20:00 98.2 F 130 H 18 160/85 98 03/17/21 15:30 124 H 20 151/97 96 03/17/21 13:13 97.6 F 129 H 22 162/98 97 Intake and Output 03/17/21 03/18/21 03/18/21 22:59 06:59 14:59 Intake Total 631.145 Balance 631.145 Intake: Intake, IV Titration 151.145 Amount Heparin Sod,Pork in 0.45% 151.145 NaCl 25,000 unit In 0.45 % NaCl 1 250ml.bag @ 6.33 UNITS/KG/HR 9.998 mls/hr IV .Q24H [facility] Rx#: [id number] Oral 480 Other: Voiding Method Toilet Toilet Urinal Urinal # Voids 1 Weight 157.941 kg PHYSICAL EXAMINATION: Patient is lying in the bed comfortably, no acute distress, awake alert and oriented.Morbidly obese.. HEENT: Normocephalic. Neck is supple. Pupils reactive. Nostrils clear. Oral cavity is moist. Neck reveals no JVD, carotid bruits, or thyromegaly. CHEST EXAMINATION: Trachea is central. Symmetrical expansion. Lung taveras clear to auscultation and percussion. CARDIAC: Normal S1, S2 with no gallops. No murmurs ABDOMEN: Soft. Bowel sounds normal. No organomegaly. No abdominal bruits. Extremities: Bilateral lower extremity 4+ pitting edema.. No clubbing or cyan osis, Scrotal swelling Neurologically awake, alert, oriented x3 with well-coordinated movements. No focal deficits noted Skin: No rash or skin lesions. Psychiatric: Cooperative. Nonsuicidal Musculoskeletal: No joint swelling or deformity. Normal range of motion. Results CBC & Chem 7: 03/18/21 03:14 03/17/21 14:03 Labs: Abnormal Lab Results - Last 24 Hours (Table) 03/17/21 03/17/21 03/17/21 Range/Units 14:03 14:03 17:03 APTT (22.0-30.0) sec BUN 31 H (9-20) mg/dL Creatinine 2.04 H (0.66-1.25) mg/dL POC Glucose (mg/dL) (75-99) mg/dL Magnesium 1.5 L (1.6-2.3) mg/dL Troponin I 0.074 H* 0.082 H* (0.000-0.034) ng/mL Total Protein 5.9 L (6.3-8.2) g/dL Albumin 2.9 L (3.5-5.0) g/dL 03/17/21 03/17/21 03/18/21 Range/Units 20:19 20:24 00:24 APTT (22.0-30.0) sec BUN (9-20) mg/dL Creatinine (0.66-1.25) mg/dL POC Glucose (mg/dL) 144 H (75-99) mg/dL Magnesium (1.6-2.3) mg/dL Troponin I 0.075 H* 0.079 H* (0.000-0.034) ng/mL Total Protein (6.3-8.2) g/dL Albumin (3.5-5.0) g/dL 03/18/21 03/18/21 03/18/21 Range/Units 03:14 03:14 05:33 APTT 31.5 H (22.0-30.0) sec BUN (9-20) mg/dL Creatinine (0.66-1.25) mg/dL POC Glucose (mg/dL) 163 H (75-99) mg/dL Magnesium (1.6-2.3) mg/dL Troponin I 0.070 H* (0.000-0.034) ng/mL Total Protein (6.3-8.2) g/dL Albumin (3.5-5.0) g/dL Thrombosis Risk Factor Assmnt - DVT/VTE Prophylaxis DVT/VTE Prophylaxis: Pharmacologic Prophylaxis ordered Assessment and Plan Assessment: Bilateral lower extremity swelling along with scrotal swelling/volume overload. Acute on chronic kidney disease stage III due to cardiorenal syndrome Elevated troponin level. Likely due to acute on chronic kidney disease.. Hypertension Diabetes type 2Insulin-dependent. Coronary artery disease status post stent placement and CABG history. Morbid obesity with a BMI 51.4. Hypomagnesemia. Replaced. DVT prophylaxis with heparin subcu Plan: Patient was given IV Lasix in the ER.Continue with IV Lasix 60 mg twice daily and monitor blood pressure and renal function closely.Duplex scan is negative for DVT. Patient was started on heparin drip due to elevated troponin level. Continue with aspirin, statins and Plavix. Start back on home insulin regimen and sliding scale. Continue to follow cl osely. Cardiology and nephrology is on board. Prognosis guarded with multiple medical problems and comorbid conditions. Time with Patient: Greater than 30
[2021-03-19] MEDS: HYDROcodone/APAP 10-325MG 1 EACH TAB PO PRN ×5 (04:15→23:15)
[2021-03-19 06:16] LABS: Glucose,Whole Blood 205 mg/dL (75-99)
[2021-03-19] MEDS: PANTOPRAZOLE 40 MG TABLET PO SCH ×2 (06:28→16:26)
[2021-03-19] MEDS: ALBUTEROL HFA INHALER INHALATION PRN (07:36)
[2021-03-19 08:25] LABS: Albumin 2.9 g/dL (3.5-5.0); Calcium 8.4 mg/dL (8.4-10.2); Magnesium 1.4 mg/dL (1.6-2.3); Potassium 4.6 mmol/L (3.5-5.1); Total Bilirubin 0.6 mg/dL (0.2-1.3); Total Protein 5.7 g/dL (6.3-8.2)
[2021-03-19] MEDS: ASPIRIN 81 MG PO SCH (08:50)
[2021-03-19] MEDS: FUROSEMIDE 10 MG/ML 10 ML VIAL IV SCH (08:50)
[2021-03-19] MEDS: CLOPIDOGREL 75 MG TAB PO SCH (08:50)
[2021-03-19] MEDS: INSULIN ASPART (NovoLOG) 100 UNIT/ML VIAL SQ SCH ×3 (08:50→17:22)
[2021-03-19] MEDS: MECLIZINE 25 MG TAB PO SCH ×3 (08:51→23:16)
[2021-03-19] MEDS: PREGABALIN 75 MG CAP PO SCH ×2 (08:51→20:48)
[2021-03-19] MEDS: METOPROLOL TARTRATE 50 MG TAB PO SCH ×2 (08:51→20:48)
[2021-03-19] MEDS: ISOSORBIDE MONONITRATE ER 60 MG TAB.ER.24H PO SCH (08:51)
--- NOTE | 2021-03-19 09:59 | P.PN ---
Subjective Patient is seen in follow-up for acute kidney injury on chronic kidney disease. Creatinine 2.26 today. Urine output documented as 700 mL in the last 24 hours. Maintained on IV Lasix. Feels edematous. Vital signs are stable. General: The patient appeared well nourished and normally developed. HEENT: Head exam is unremarkable. LUNGS: Breath sounds decreased. HEART: Rate and Rhythm are regular. ABDOMEN: Soft, obese. EXTREMITITES: 2+ edema. Objective - Vital Signs Vital signs: Vital Signs Temp 98.1 F 03/19/21 08:00 Pulse 124 H 03/19/21 08:00 Resp 20 03/19/21 08:00 BP 139/92 03/19/21 08:00 Pulse Ox 95 03/19/21 08:00 Intake & Output 03/18/21 03/19/21 03/19/21 18:59 06:59 18:59 Intake Total 0 Output Total 700 Balance -700 0 Weight 137 kg Intake: Oral 0 Output: Urine 700 Other: Voiding Method Toilet Urinal - Labs CBC & Chem 7: 03/18/21 03:14 03/19/21 07:20 Labs: Abnormal Lab Results - Last 24 Hours (Table) 03/18/21 03/18/21 03/18/21 Range/Units 09:56 12:52 14:00 Sodium (137-145) mmol/L BUN (9-20) mg/dL Creatinine (0.66-1.25) mg/dL Glucose (74-99) mg/dL POC Glucose (mg/dL) 161 H 120 H (75-99) mg/dL Magnesium (1.6-2.3) mg/dL Total Protein (6.3-8.2) g/dL Albumin (3.5-5.0) g/dL Urine Protein 2+ H (Negative) Urine Glucose (UA) Trace H (Negative) Urine Blood Trace H (Negative) Hyaline Casts 3 H (0-2) /lpf Urine Mucus Rare H (None) /hpf 03/18/21 03/18/21 03/19/21 Range/Units 17:18 20:08 06:12 Sodium (137-145) mmol/L BUN (9-20) mg/dL Creatinine (0.66-1.25) mg/dL Glucose (74-99) mg/dL POC Glucose (mg/dL) 176 H 143 H 205 H (75-99) mg/dL Magnesium (1.6-2.3) mg/dL Total Protein (6.3-8.2) g/dL Albumin (3.5-5.0) g/dL Urine Protein (Negative) Urine Glucose (UA) (Negative) Urine Blood (Negative) Hyaline Casts (0-2) /lpf Urine Mucus (None) /hpf 03/19/21 Range/Units 07:20 Sodium 136 L (137-145) mmol/L BUN 39 H (9-20) mg/dL Creatinine 2.26 H (0.66-1.25) mg/dL Glucose 268 H (74-99) mg/dL POC Glucose (mg/dL) (75-99) mg/dL Magnesium 1.4 L (1.6-2.3) mg/dL Total Protein 5.7 L (6.3-8.2) g/dL Albumin 2.9 L (3.5-5.0) g/dL Urine Protein (Negative) Urine Glucose (UA) (Negative) Urine Blood (Negative) Hyaline Casts (0-2) /lpf Urine Mucus (None) /hpf Assessment and Plan Plan: Assessment: 1. Acute kidney injury prerenal secondary to cardiorenal syndrome. Creatinine 2.04 on admission and is up to 2.26 today. Renal ultrasound revealed no evidence of hydronephrosis. 2. Chronic kidney disease stage IIIB with baseline creatinine near 1.7 in August and September 2020. 3. Volume overload. 4. Diabetes mellitus. 5. Coronary artery disease status post stenting and CABG in the past. 6. Hypertension with chronic kidney disease. Stable. 7. Proteinuria with albumin of 2.9. Rule out GN. Likely cause is diabetic kidney disease. 8. Acute systolic CHF with ejection fraction of 45-50%. Plan: Stop IV push Lasix and start Lasix drip at 10 mL an hour. Low-salt diet. 1500 mL fluid restriction. Daily weights. Maintain lisinopril as blood pressure is not low. Continue to monitor renal function and urine output. Quantify proteinuria and check serologies.
[2021-03-19] MEDS: FUROSEMIDE 100 MG in SODIUM CHLORIDE 0.9% 90 ML IV SCH ×2 (11:35→23:15)
[2021-03-19 11:46] LABS: Glucose,Whole Blood 163 mg/dL (75-99)
--- NOTE | 2021-03-19 13:06 | P.PN ---
Subjective Progress Note Date: 03/19/21 HISTORY OF PRESENT ILLNESS: This is a 51-year-old male with a past medical history significant for coronary artery disease with previous CABG and subsequent stenting, hypertension, h yperlipidemia, nicotine dependence, and morbid obesity. Patient follows in the office with Dr. Mallory. We have been asked to see the patient in consultation for CHF. Patient examined at the bedside. Patient states he was taken off his lasix 6-8 weeks ago due to worsening kidney function. He reports a weight gain of about 30-40 lbs since that time. He reports increased lower extremity edema. The patient was started on IV Lasix per the emergency room physician. The patient currently denies chest pain or pressure. Denies shortness of breath. EKG reveals sinus tachycardia with a heart rate of 125. Chest xray negative for acute process Most recent echocardiogram obtained in 2018 revealed ejection fraction 45-50%. Trace mitral regurgitation. Trace tricuspid regurgitation. Cardiac catheterization history: August 2018 feeling patent OMALLEY to LAD, pain and SVG to diagonal, patent SVG to RCA. Severe disease involving the first obtuse marginal branch of left circumflex as well as the ramus intermedius area patient underwent stenting of the first obtuse marginal branch of the left circumflex. Medical management was recommended for ramus intermedius. 03/19/2021 Patient examined this morning at the bedside. Patient currently denies chest pain or pressure. He continues to have lower extremity edema. He is on IV lasix. Fluid balance over the last 24 hours is -700cc. echocardiogram completed revealing ejection fraction 45-50%. PHYSICAL EXAM: VITAL SIGNS: Reviewed. GENERAL: Well-developed in no acute distress. HEENT: Head is normocephalic. Pupils are equal, round. Sclerae anicteric. Mucous membranes of the mouth are moist. Neck supple. No JVD or thyromegaly LUNGS: Respirations even and unlabored. Lungs diminished to auscultation bilaterally. HEART: Regular rate and rhythm. S1 and S2 heard. ABDOMEN: Soft. Nondistended. Nontender. EXTREMITIES: Normal range of motion. No clubbing or cyanosis. Peripheral pulses intact. 2-3+ bilateral lower extremity edema NEUROLOGIC: Awake and alert. Oriented x 3. ASSESSMENT: Lower extremity edema, CXR w/o s/s CHF and BNP WNL Coronary artery disease with previous CABG and stenting Hypertension Hyperlipidemia Acute on chronic kidney disease Abnormal troponins, secondary to above, no evidence of acute coronary syndrome Morbid obesity Diabetes PLAN: Continue current cardiac medications Monitor kidney function Nephrology following. Lasix drip ordered. Further recommendations pending patient's course Nurse practitioner note has been reviewed by physician. Signing provider agrees with the documented findings, assessment, and plan of care. Objective - Vital Signs Vital signs: Vital Signs Temp 98.2 F 03/19/21 11:31 Pulse 117 H 03/19/21 11:31 Resp 19 03/19/21 11:31 BP 130/79 03/19/21 11:31 Pulse Ox 97 03/19/21 11:31 Intake & Output 03/18/21 03/19/21 03/19/21 18:59 06:59 18:59 Intake Total 118 Output Total 700 825 Balance -700 -707 Weight 137 kg Intake: Oral 118 Output: Urine 700 825 Other: Voiding Method Toilet Urinal - Labs CBC & Chem 7: 03/18/21 03:14 03/19/21 07:20 Labs: Abnormal Lab Results - Last 24 Hours (Table) 03/18/21 03/18/21 03/18/21 Range/Units 14:00 17:18 20:08 Sodium (137-145) mmol/L BUN (9-20) mg/dL Creatinine (0.66-1.25) mg/dL Glucose (74-99) mg/dL POC Glucose (mg/dL) 176 H 143 H (75-99) mg/dL Magnesium (1.6-2.3) mg/dL Total Protein (6.3-8.2) g/dL Albumin (3.5-5.0) g/dL Urine Protein 2+ H (Negative) Urine Glucose (UA) Trace H (Negative) Urine Blood Trace H (Negative) Hyaline Casts 3 H (0-2) /lpf Urine Mucus Rare H (None) /hpf 03/19/21 03/19/21 03/19/21 Range/Units 06:12 07:20 11:44 Sodium 136 L (137-145) mmol/L BUN 39 H (9-20) mg/dL Creatinine 2.26 H (0.66-1.25) mg/dL Glucose 268 H (74-99) mg/dL POC Glucose (mg/dL) 205 H 163 H (75-99) mg/dL Magnesium 1.4 L (1.6-2.3) mg/dL Total Protein 5.7 L (6.3-8.2) g/dL Albumin 2.9 L (3.5-5.0) g/dL Urine Protein (Negative) Urine Glucose (UA) (Negative) Urine Blood (Negative) Hyaline Casts (0-2) /lpf Urine Mucus (None) /hpf
[2021-03-19 13:24] LABS: Creatinine,Urine Random 53.1 mg/dL
[2021-03-19 13:30] VITALS: BMI 44.6
[2021-03-19 13:37] LABS: Protein/Creatinine Ratio,Urine 8.814
[2021-03-19 16:02] LABS: Hepatitis A Antibody IgM Nonreactive (Nonreactive); Hepatitis B Core IgM Nonreactive (Nonreactive); Hepatitis B Surface Antigen Nonreactive (Nonreactive); Hepatitis C IgG Antibody Nonreactive (Nonreactive)
[2021-03-19] MEDS: MAGNESIUM SULFATE-D5W PMX 1 GM in DEXTROSE/WATER 1 100ML.BAG IVPB SCH ×2 (16:25→18:10)
[2021-03-19 16:28] LABS: Glucose,Whole Blood 117 mg/dL (75-99)
[2021-03-19 20:08] LABS: Glucose,Whole Blood 192 mg/dL (75-99)
[2021-03-19] MEDS: INSULIN DETEMIR (LEVEMIR) 100 UNIT/ML SYR SQ SCH (20:47)
[2021-03-19] MEDS: lisinopriL 10 MG TAB PO SCH (20:48)
[2021-03-19] MEDS: SERTRALINE 50 MG TAB PO SCH (20:48)
[2021-03-19] MEDS: ATORVASTATIN 80 MG TAB PO SCH (20:48)
[2021-03-19] MEDS: MONTELUKAST 10 MG TAB PO SCH (20:48)
[2021-03-20] MEDS: HYDROcodone/APAP 10-325MG 1 EACH TAB PO PRN ×5 (03:09→21:19)
[2021-03-20 06:06] LABS: Glucose,Whole Blood 331 mg/dL (75-99)
[2021-03-20] MEDS: PANTOPRAZOLE 40 MG TABLET PO SCH ×2 (06:48→16:59)
[2021-03-20] MEDS: INSULIN ASPART (NovoLOG) 100 UNIT/ML VIAL SQ SCH ×3 (07:17→16:59)
[2021-03-20] MEDS: FUROSEMIDE 100 MG in SODIUM CHLORIDE 0.9% 90 ML IV SCH ×3 (08:06→22:01)
[2021-03-20] MEDS: ISOSORBIDE MONONITRATE ER 60 MG TAB.ER.24H PO SCH (08:07)
[2021-03-20] MEDS: ASPIRIN 81 MG PO SCH (08:07)
[2021-03-20] MEDS: METOPROLOL TARTRATE 50 MG TAB PO SCH ×2 (08:07→21:17)
[2021-03-20] MEDS: PREGABALIN 75 MG CAP PO SCH ×2 (08:07→21:18)
[2021-03-20] MEDS: CLOPIDOGREL 75 MG TAB PO SCH (08:07)
[2021-03-20] MEDS: MECLIZINE 25 MG TAB PO SCH ×3 (08:07→21:19)
--- NOTE | 2021-03-20 09:14 | P.PN ---
Subjective Patient is seen in follow-up for acute kidney injury on chronic kidney disease. Creatinine 2.26 yesterday. Urine output documented as 4.58 L in the last 24 hours. Maintained on Lasix drip. Edema improving. No vomiting or diarrhea. Weinberg catheter inserted for urinary retention. Vital signs are stable. General: The patient appeared well nourished and normally developed. HEENT: Head exam is unremarkable. LUNGS: Breath sounds decreased. HEART: Rate and Rhythm are regular. ABDOMEN: Soft, obese. EXTREMITITES: 2+ edema. Scrotal edema noted. Objective - Vital Signs Vital signs: Vital Signs Temp 97.7 F 03/20/21 08:00 Pulse 124 H 03/20/21 08:00 Resp 18 03/20/21 08:00 BP 178/87 03/20/21 08:00 Pulse Ox 96 03/20/21 08:00 Intake & Output 03/19/21 03/20/21 03/20/21 18:59 06:59 18:59 Intake Total 236 100 328.5 Output Total 2125 2460 Balance -1889 -2360 328.5 Weight 137 kg 145.2 kg Intake: Intake, IV Titration 100 88.5 Amount Furosemide 100 mg In 100 88.5 Sodium Chloride 0.9% 90 ml @ 10 MG/HR 10 mls/hr IV .Q10H [facility] Rx#: [id number] Oral 236 240 Output: Urine 2125 2460 Other: Voiding Method Indwelling Catheter Indwelling Catheter - Labs CBC & Chem 7: 03/18/21 03:14 03/19/21 07:20 Labs: Abnormal Lab Results - Last 24 Hours (Table) 03/19/21 03/19/21 03/19/21 Range/Units 11:44 16:26 20:08 POC Glucose (mg/dL) 163 H 117 H 192 H (75-99) mg/dL 03/20/21 Range/Units 06:05 POC Glucose (mg/dL) 331 H (75-99) mg/dL Assessment and Plan Plan: Assessment: 1. Acute kidney injury prerenal secondary to cardiorenal syndrome. Creatinine 2.04 on admission and is up to 2.26 yesterday. Renal ultrasound revealed no evidence of hydronephrosis. 2. Chronic kidney disease stage IIIB with baseline creatinine near 1.7 in August and September 2020. 3. Volume overload. 4. Diabetes mellitus. 5. Coronary artery disease status post stenting and CABG in the past. 6. Hypertension with chronic kidney disease. Stable. 7. Proteinuria with albumin of 2.9. Rule out GN. Likely cause is diabetic kidney disease. UPC 8.8 g. 8. Acute systolic CHF with ejection fraction of 45-50%. 9. Urinary retention status post Weinberg catheter placement. Plan: Increase Lasix drip to 15 mL an hour. Low-salt diet. 1500 mL fluid restriction. Daily weights. Maintain lisinopril as blood pressure is not low. Continue to monitor renal function and urine output. Follow-up serologies. Add Flomax.
[2021-03-20 09:33] LABS: Albumin 3.1 g/dL (3.5-5.0); Calcium 8.8 mg/dL (8.4-10.2); Magnesium 1.8 mg/dL (1.6-2.3); Potassium 4.3 mmol/L (3.5-5.1); Total Bilirubin 0.8 mg/dL (0.2-1.3); Total Protein 6.2 g/dL (6.3-8.2)
[2021-03-20] MEDS: TAMSULOSIN 0.4 MG CAP.ER.24H PO SCH (10:28)
[2021-03-20 11:41] LABS: Glucose,Whole Blood 125 mg/dL (75-99)
--- NOTE | 2021-03-20 12:26 | P.PN ---
Subjective Progress Note Date: 03/20/21 HISTORY OF PRESENT ILLNESS: This is a 51-year-old male with a past medical history significant for coronary artery disease with previous CABG and subsequent stenting, hypertension, h yperlipidemia, nicotine dependence, and morbid obesity. Patient follows in the office with Dr. Mallory. We have been asked to see the patient in consultation for CHF. Patient examined at the bedside. Patient states he was taken off his lasix 6-8 weeks ago due to worsening kidney function. He reports a weight gain of about 30-40 lbs since that time. He reports increased lower extremity edema. The patient was started on IV Lasix per the emergency room physician. The patient currently denies chest pain or pressure. Denies shortness of breath. EKG reveals sinus tachycardia with a heart rate of 125. Chest xray negative for acute process Most recent echocardiogram obtained in 2018 revealed ejection fraction 45-50%. Trace mitral regurgitation. Trace tricuspid regurgitation. Cardiac catheterization history: August 2018 feeling patent OMALLEY to LAD, pain and SVG to diagonal, patent SVG to RCA. Severe disease involving the first obtuse marginal branch of left circumflex as well as the ramus intermedius area patient underwent stenting of the first obtuse marginal branch of the left circumflex. Medical management was recommended for ramus intermedius. 03/19/2021 Patient examined this morning at the bedside. Patient currently denies chest pain or pressure. He continues to have lower extremity edema. He is on IV lasix. Fluid balance over the last 24 hours is -700cc. echocardiogram completed revealing ejection fraction 45-50%. 03/20/2021 Patient examined this morning at the bedside. Patient denies chest pain or pressure. He states his shortness of breath has improved. He reports improvement in his lower extremity edema. He is on IV Lasix drip per nephrology. Fluid balance over the last 24 hours is -4 L. Creatinine 2.2. Telemetry reveals sinus tachycardia with heart rate in the 120s. PHYSICAL EXAM: VITAL SIGNS: Reviewed. GENERAL: Well-developed in no acute distress. HEENT: Head is normocephalic. Pupils are equal, round. Sclerae anicteric. Mucous membranes of the mouth are moist. Neck supple. No JVD or thyromegaly LUNGS: Respirations even and unlabored. Lungs diminished to auscultation bilaterally. HEART: Tachycardic. Regular rate and rhythm. S1 and S2 heard. ABDOMEN: Soft. Nondistended. Nontender. EXTREMITIES: Normal range of motion. No clubbing or cyanosis. Peripheral pulses intact. 2-3+ bilateral lower extremity edema NEUROLOGIC: Awake and alert. Oriented x 3. ASSESSMENT: Lower extremity edema, CXR w/o s/s CHF and BNP WNL Coronary artery disease with previous CABG and stenting Hypertension Hyperlipidemia Acute on chronic kidney disease Abnormal troponins, secondary to above, no evidence of acute coronary syndrome Morbid obesity Diabetes PLAN: Continue current cardiac medications Monitor kidney function Nephrology following. Continue lasix drip per nephrology. Further recommendations pending patient's course Nurse practitioner note has been reviewed by physician. Signing provider agrees with the documented findings, assessment, and plan of care. Objective - Vital Signs Vital signs: Vital Signs Temp 97.6 F 03/20/21 11:17 Pulse 112 H 03/20/21 11:17 Resp 19 03/20/21 11:17 BP 146/61 03/20/21 11:17 Pulse Ox 96 03/20/21 11:17 Intake & Output 03/19/21 03/20/21 03/20/21 18:59 06:59 18:59 Intake Total 236 100 328.5 Output Total 2125 2460 1550 Balance -1889 -2360 -1221.5 Weight 137 kg 145.2 kg Intake: Intake, IV Titration 100 88.5 Amount Furosemide 100 mg In 100 88.5 Sodium Chloride 0.9% 90 ml @ 15 MG/HR 15 mls/hr IV .Q6H40M [facility] Rx#: [id number] Oral 236 240 Output: Urine 2125 2460 1550 Other: Voiding Method Indwelling Catheter Indwelling Catheter Indwelling Catheter - Labs CBC & Chem 7: 03/18/21 03:14 03/20/21 08:26 Labs: Abnormal Lab Results - Last 24 Hours (Table) 03/19/21 03/19/21 03/20/21 Range/Units 16:26 20:08 06:05 Carbon Dioxide (22-30) mmol/L BUN (9-20) mg/dL Creatinine (0.66-1.25) mg/dL Glucose (74-99) mg/dL POC Glucose (mg/dL) 117 H 192 H 331 H (75-99) mg/dL Total Protein (6.3-8.2) g/dL Albumin (3.5-5.0) g/dL 03/20/21 03/20/21 Range/Units 08:26 11:39 Carbon Dioxide 33 H (22-30) mmol/L BUN 47 H (9-20) mg/dL Creatinine 2.26 H (0.66-1.25) mg/dL Glucose 266 H (74-99) mg/dL POC Glucose (mg/dL) 125 H (75-99) mg/dL Total Protein 6.2 L (6.3-8.2) g/dL Albumin 3.1 L (3.5-5.0) g/dL
[2021-03-20 14:04] LABS: Protein, Total 5.7 g/dL (6.2-8.2)
[2021-03-20 16:33] LABS: Glucose,Whole Blood 153 mg/dL (75-99)
[2021-03-20 19:50] LABS: Glucose,Whole Blood 230 mg/dL (75-99)
[2021-03-20] MEDS: lisinopriL 10 MG TAB PO SCH (21:17)
[2021-03-20] MEDS: ATORVASTATIN 80 MG TAB PO SCH (21:17)
[2021-03-20] MEDS: INSULIN DETEMIR (LEVEMIR) 100 UNIT/ML SYR SQ SCH (21:17)
[2021-03-20] MEDS: MONTELUKAST 10 MG TAB PO SCH (21:18)
[2021-03-20] MEDS: SERTRALINE 50 MG TAB PO SCH (21:18)
--- NOTE | 2021-03-20 22:57 | P.PN ---
Subjective Progress Note Date: 03/19/21 Patient is a 51-year-old male with a known history of coronary artery disease status post CABG, cardiac catheterization and stent placement, hypertension, hyperlipidemia, diabetes type 2 and chronic kidney disease past nephrolithiasis and chronic low back pain, morbid obesity with a BMI 51.4 presents to ER with complaints of worsening bilateral leg swelling and increased abdominal girth. Patient has been having worsening symptoms for the past few weeks. Patient is also complaining of swelling in the scrotal area. Denies any chest pain. Patient does have extensive cardiac history with previous history of CABG and 7 stents placement. Denies any fever or chills. No cough or sputum production. No nausea vomiting or abdominal pain or diarrhea. Chest x-ray showed no acute cardiopulmonary process Venous duplex showed suboptimal study without convincing evidence of acute DVT on either lower extremity. EKG showed sinus tachycardia. Poor data quality. Laboratory data showed WBC 8.9 hemoglobin 15.5 and platelets 175 BUN 31 creatinine 2.04, magnesium 1.5, troponin 0 0.074, 0.082 and 0.075, proBNP 677 Albumin 2.9, free T4 0.78 03/19/2021 Patient is currently sitting in the chair. Still having bilateral lower acuity swelling and scrotal edema. Patient was continued on IV Lasix. Change to Lasix drip. Denied any complaints of chest pain or shortness breath. No fever no chills. No cough or sputum production. No nausea vomiting abdominal pain or diarrhea. Laboratory data showed sodium 136 potassium 4.6 chloride 103 BUN 39 and creatinine 2.26 and blood sugar is 268 and magnesium 1.4 Hepatitis panel and complement within normal limits. Nephrology and cardiology is on board. Abdominal ultrasound showed no hydronephrosis. 2D echocardiogram showed overall left ventricular systolic function is mildly impaired ejection fraction 45 to 50%. Right ventricle is moderately enlarged. Current medications reviewed. Objective - Vital Signs Vital signs: Vital Signs Temp 98.7 F 03/20/21 20:00 Pulse 95 03/20/21 20:00 Resp 16 03/20/21 20:00 BP 120/62 03/20/21 20:00 Pulse Ox 95 03/20/21 20:00 Intake & Output 03/20/21 03/20/21 03/21/21 06:59 18:59 06:59 Intake Total 100 417.5 50.167 Output Total 2460 1550 Balance -2360 -1132.5 50.167 Weight 145.2 kg Intake: Intake, IV Titration 100 177.5 50.167 Amount Furosemide 100 mg In 100 177.5 50.167 Sodium Chloride 0.9% 90 ml @ 15 MG/HR 15 mls/hr IV .Q6H40M [facility] Rx#: [id number] Oral 240 Output: Urine 2460 1550 Other: Voiding Method Indwelling Catheter Indwelling Catheter Indwelling Catheter - Exam PHYSICAL EXAMINATION: Patient is lying in the bed comfortably, no acute distress, awake alert and oriented.Morbidly obese.. HEENT: Normocephalic. Neck is supple. Pupils reactive. Nostrils clear. Oral cavity is moist. Neck reveals no JVD, carotid bruits, or thyromegaly. CHEST EXAMINATION: Trachea is central. Symmetrical expansion. Lung taveras clear to auscultation and percussion. CARDIAC: Normal S1, S2 with no gallops. No murmurs ABDOMEN: Soft. Bowel sounds normal. No organomegaly. No abdominal bruits. Extremities: Bilateral lower extremity 4+ pitting edema.. No clubbing or cyanosis, Scrotal swelling Neurologically awake, alert, oriented x3 with well-coordinated movements. No focal deficits noted Skin: No rash or skin lesions. Psychiatric: Cooperative. Nonsuicidal Musculoskeletal: No joint swelling or deformity. Normal range of motion. - Labs CBC & Chem 7: 03/18/21 03:14 03/20/21 08:26 Labs: Abnormal Lab Results - Last 24 Hours (Table) 03/19/21 03/20/21 03/20/21 Range/Units 07:20 06:05 08:26 Carbon Dioxide 33 H (22-30) mmol/L BUN 47 H (9-20) mg/dL Creatinine 2.26 H (0.66-1.25) mg/dL Glucose 266 H (74-99) mg/dL POC Glucose (mg/dL) 331 H (75-99) mg/dL Total Protein 6.2 L (6.3-8.2) g/dL Total Protein (PEP) 5.7 L (6.2-8.2) g/dL Albumin 3.1 L (3.5-5.0) g/dL 03/20/21 03/20/21 03/20/21 Range/Units 11:39 16:23 19:48 Carbon Dioxide (22-30) mmol/L BUN (9-20) mg/dL Creatinine (0.66-1.25) mg/dL Glucose (74-99) mg/dL POC Glucose (mg/dL) 125 H 153 H 230 H (75-99) mg/dL Total Protein (6.3-8.2) g/dL Total Protein (PEP) (6.2-8.2) g/dL Albumin (3.5-5.0) g/dL Assessment and Plan Assessment: Bilateral lower extremity swelling along with scrotal swelling/volume overload. Acute on chronic kidney disease stage III due to cardiorenal syndrome Elevated troponin level. Likely due to acute on chronic kidney disease.. Hypertension Diabetes type 2Insulin-dependent. Coronary artery disease status post stent placement and CABG history. Morbid obesity with a BMI 51.4. Hypomagnesemia. Replaced. DVT prophylaxis with heparin subcu Plan: Patient was given IV Lasix in the ER.Continued with IV Lasix 60 mg twice daily and monitor blood pressure and renal function closely. Duplex scan is negative for DVT. IV Lasix changed to Lasix drip Patient was started on heparin drip due to elevated troponin level.Unlikely ACS. Discontinued now. Continue with aspirin, statins and Plavix. Start back on home insulin regimen and sliding scale. Continue to follow closely. Cardiology and nephrology is on board. Prognosis guarded with multiple medical problems and comorbid conditions. Time with Patient: Greater than 30
--- NOTE | 2021-03-20 23:01 | P.PN ---
Subjective Progress Note Date: 03/20/21 Principal diagnosis: Bilateral lower extremity swelling along with scrotal swelling/volume overload. Acute on chronic kidney disease stage III due to cardiorenal syndrome Patient is a 51-year-old male with a known history of coronary artery disease status post CABG, cardiac catheterization and stent placement, hypertension, hyperlipidemia, diabetes type 2 and chronic kidney disease past nephrolithiasis and chronic low back pain, morbid obesity with a BMI 51.4 presents to ER with complaints of worsening bilateral leg swelling and increased abdominal girth. Patient has been having worsening symptoms for the past few weeks. Patient is also complaining of swelling in the scrotal area. Denies any chest pain. Patient does have extensive cardiac history with previous history of CABG and 7 stents placement. Denies any fever or chills. No cough or sputum production. No nausea vomiting or abdominal pain or diarrhea. Chest x-ray showed no acute cardiopulmonary process Venous duplex showed suboptimal study without convincing evidence of acute DVT on either lower extremity. EKG showed sinus tachycardia. Poor data quality. Laboratory data showed WBC 8.9 hemoglobin 15.5 and platelets 175 BUN 31 creatinine 2.04, magnesium 1.5, troponin 0 0.074, 0.082 and 0.075, proBNP 677 Albumin 2.9, free T4 0.78 03/19/2021 Patient is currently sitting in the chair. Still having bilateral lower acuity swelling and scrotal edema. Patient was continued on IV Lasix. Change to Lasix drip. Denied any complaints of chest pain or shortness breath. No fever no chills. No cough or sputum production. No nausea vomiting abdominal pain or diarrhea. Laboratory data showed sodium 136 potassium 4.6 chloride 103 BUN 39 and creatinine 2.26 and blood sugar is 268 and magnesium 1.4 Hepatitis panel and complement within normal limits. Nephrology and cardiology is on board. Abdominal ultrasound showed no hydronephrosis. 2D echocardiogram showed overall left ventricular systolic function is mildly impaired ejection fraction 45 to 50%. Right ventricle is moderately enlarged. 03/20/2021 Patient is currently sitting in a chair. Awake alert 1x3. Still having bilateral lower extremity minor scrotal swelling. Complains of back pain as well. Otherwise laboratory data showed sodium 138 potassium 4.3 bicarb is 33 BUN 47 and creatinine 2.26 Patient is being current on Lasix drip. Patient denied any complaints of nausea vomiting abdominal pain or diarrhea. Diuresing well. Weinberg catheter is in place. Patient has been afebrile. No cough or sputum production. Nephrology is on board. Current medications reviewed. Objective - Vital Signs Vital signs: Vital Signs Temp 98.7 F 03/20/21 20:00 Pulse 95 03/20/21 20:00 Resp 16 03/20/21 20:00 BP 120/62 03/20/21 20:00 Pulse Ox 95 03/20/21 20:00 Intake & Output 03/20/21 03/20/21 03/21/21 06:59 18:59 06:59 Intake Total 100 417.5 50.167 Output Total 2460 1550 Balance -2360 -1132.5 50.167 Weight 145.2 kg Intake: Intake, IV Titration 100 177.5 50.167 Amount Furosemide 100 mg In 100 177.5 50.167 Sodium Chloride 0.9% 90 ml @ 15 MG/HR 15 mls/hr IV .Q6H40M [facility] Rx#: [id number] Oral 240 Output: Urine 2460 1550 Other: Voiding Method Indwelling Catheter Indwelling Catheter Indwelling Catheter - Exam PHYSICAL EXAMINATION: Patient is lying in the bed comfortably, no acute distress, awake alert and oriented.Morbidly obese.. HEENT: Normocephalic. Neck is supple. Pupils reactive. Nostrils clear. Oral cavity is moist. Neck reveals no JVD, carotid bruits, or thyromegaly. CHEST EXAMINATION: Trachea is central. Symmetrical expansion. Lung taveras clear to auscultation and percussion. CARDIAC: Normal S1, S2 with no gallops. No murmurs ABDOMEN: Soft. Bowel sounds normal. No organomegaly. No abdominal bruits. Extremities: Bilateral lower extremity 4+ pitting edema.. No clubbing or cyanosis, Scrotal swelling Neurologically awake, alert, oriented x3 with well-coordinated movements. No focal deficits noted Skin: No rash or skin lesions. Psychiatric: Cooperative. Nonsuicidal Musculoskeletal: No joint swelling or deformity. Normal range of motion. - Labs CBC & Chem 7: 03/18/21 03:14 03/20/21 08:26 Labs: Abnormal Lab Results - Last 24 Hours (Table) 03/19/21 03/20/21 03/20/21 Range/Units 07:20 06:05 08:26 Carbon Dioxide 33 H (22-30) mmol/L BUN 47 H (9-20) mg/dL Creatinine 2.26 H (0.66-1.25) mg/dL Glucose 266 H (74-99) mg/dL POC Glucose (mg/dL) 331 H (75-99) mg/dL Total Protein 6.2 L (6.3-8.2) g/dL Total Protein (PEP) 5.7 L (6.2-8.2) g/dL Albumin 3.1 L (3.5-5.0) g/dL 03/20/21 03/20/21 03/20/21 Range/Units 11:39 16:23 19:48 Carbon Dioxide (22-30) mmol/L BUN (9-20) mg/dL Creatinine (0.66-1.25) mg/dL Glucose (74-99) mg/dL POC Glucose (mg/dL) 125 H 153 H 230 H (75-99) mg/dL Total Protein (6.3-8.2) g/dL Total Protein (PEP) (6.2-8.2) g/dL Albumin (3.5-5.0) g/dL Assessment and Plan Assessment: Bilateral lower extremity swelling along with scrotal swelling/volume overload. Acute on chronic kidney disease stage III due to cardiorenal syndrome Elevated troponin level. Likely due to acute on chronic kidney disease.. Hypertension Diabetes type 2Insulin-dependent. Coronary artery disease status post stent placement and CABG history. Morbid obesity with a BMI 51.4. Hypomagnesemia. Replaced. DVT prophylaxis with heparin subcu Plan: Patient was given IV Lasix in the ER.Continued with IV Lasix 60 mg twice daily and monitor blood pressure and renal function closely. Duplex scan is negative for DVT. IV Lasix changed to Lasix drip Patient was started on heparin drip due to elevated troponin level.Unlikely ACS. Discontinued now. Continue with aspirin, statins and Plavix. Start back on home insulin regimen and sliding scale. Continue to follow closely. Cardiology and nephrology is on board. Prognosis guarded with multiple medical problems and comorbid conditions. Time with Patient: Greater than 30
[2021-03-21] MEDS: HYDROcodone/APAP 10-325MG 1 EACH TAB PO PRN ×5 (01:20→21:22)
[2021-03-21] MEDS: FUROSEMIDE 100 MG in SODIUM CHLORIDE 0.9% 90 ML IV SCH ×3 (04:53→17:35)
[2021-03-21 05:44] LABS: Glucose,Whole Blood 280 mg/dL (75-99)
[2021-03-21] MEDS: PANTOPRAZOLE 40 MG TABLET PO SCH ×2 (06:33→15:38)
[2021-03-21] MEDS: INSULIN ASPART (NovoLOG) 100 UNIT/ML VIAL SQ SCH ×3 (08:27→17:11)
[2021-03-21] MEDS: ASPIRIN 81 MG PO SCH (08:27)
[2021-03-21] MEDS: METOPROLOL TARTRATE 50 MG TAB PO SCH ×2 (08:27→21:19)
[2021-03-21] MEDS: CLOPIDOGREL 75 MG TAB PO SCH (08:27)
[2021-03-21] MEDS: MECLIZINE 25 MG TAB PO SCH ×3 (08:27→21:21)
[2021-03-21] MEDS: TAMSULOSIN 0.4 MG CAP.ER.24H PO SCH (08:27)
[2021-03-21] MEDS: ISOSORBIDE MONONITRATE ER 60 MG TAB.ER.24H PO SCH (08:27)
[2021-03-21] MEDS: PREGABALIN 75 MG CAP PO SCH ×2 (08:27→21:20)
--- NOTE | 2021-03-21 09:41 | P.PN ---
Subjective Patient is seen in follow-up for acute kidney injury on chronic kidney disease. Creatinine 2.26 yesterday. Urine output documented as 3.9 L in the last 24 hours. Maintained on Lasix drip. Edema improving. No vomiting or diarrhea. Weinberg catheter inserted for urinary retention. Vital signs are stable. General: The patient appeared well nourished and normally developed. HEENT: Head exam is unremarkable. LUNGS: Breath sounds decreased. HEART: Rate and Rhythm are regular. ABDOMEN: Soft, obese. EXTREMITITES: 2+ edema. Scrotal edema noted. Objective - Vital Signs Vital signs: Vital Signs Temp 98.4 F 03/21/21 08:00 Pulse 121 H 03/21/21 08:00 Resp 18 03/21/21 08:00 BP 158/88 03/21/21 08:00 Pulse Ox 95 03/21/21 08:00 Intake & Output 03/20/21 03/21/21 03/21/21 18:59 06:59 18:59 Intake Total 417.5 238.834 Output Total 1550 2400 Balance -1132.5 -2161.166 Weight 150.8 kg Intake: Intake, IV Titration 177.5 118.834 Amount Furosemide 100 mg In 177.5 118.834 Sodium Chloride 0.9% 90 ml @ 15 MG/HR 15 mls/hr IV .Q6H40M [facility] Rx#: [id number] Oral 240 120 Output: Urine 1550 2400 Other: Voiding Method Indwelling Catheter Indwelling Catheter - Labs CBC & Chem 7: 03/18/21 03:14 03/20/21 08:26 Labs: Abnormal Lab Results - Last 24 Hours (Table) 03/19/21 03/20/21 03/20/21 Range/Units 07:20 11:39 16:23 POC Glucose (mg/dL) 125 H 153 H (75-99) mg/dL Total Protein (PEP) 5.7 L (6.2-8.2) g/dL 03/20/21 03/21/21 Range/Units 19:48 05:43 POC Glucose (mg/dL) 230 H 280 H (75-99) mg/dL Total Protein (PEP) (6.2-8.2) g/dL Assessment and Plan Plan: Assessment: 1. Acute kidney injury prerenal secondary to cardiorenal syndrome. Creatinine 2.04 on admission and is up to 2.26 yesterday. Renal ultrasound revealed no evidence of hydronephrosis. 2. Chronic kidney disease stage IIIB with baseline creatinine near 1.7 in August and September 2020. 3. Volume overload. Improving with diuresis. 4. Diabetes mellitus. 5. Coronary artery disease status post stenting and CABG in the past. 6. Hypertension with chronic kidney disease. Stable. 7. Proteinuria with albumin of 2.9. Rule out GN. Likely cause is diabetic kidney disease. UPC 8.8 g. 8. Acute systolic CHF with ejection fraction of 45-50%. 9. Urinary retention status post Weinberg catheter placement. On Flomax. Plan: Maintain Lasix drip at 15 mL an hour. Add metolazone 5 mg once daily. Low-salt diet. 1500 mL fluid restriction. Daily weights. Maintain lisinopril as blood pressure is not low. Continue to monitor renal function and urine output. Follow-up serologies.
[2021-03-21] MEDS: metOLazone 5 MG TAB PO SCH (10:03)
[2021-03-21 10:33] LABS: Calcium 8.3 mg/dL (8.4-10.2); Magnesium 1.7 mg/dL (1.6-2.3); Potassium 4.4 mmol/L (3.5-5.1); Total Protein 5.9 g/dL (6.3-8.2)
[2021-03-21 11:56] LABS: Glucose,Whole Blood 165 mg/dL (75-99)
--- NOTE | 2021-03-21 14:16 | CDI ---
Documentation Clarification Form Date: 03/21/2021 01:38:25 PM From: Natalia Puga RN, CCDS Admit Date: 03/17/2021 03:35:00 PM Patient Name: Luis A Walters Visit Number: [id number] Discharge Date: ATTENTION: The Clinical Documentation Specialists (CDI) and [facility] Coding Staff appreciate your assistance in clarifying documentation. Please respond to the clarification below the line at the bottom and electronically sign. The CDI & [facility] Coding staff will review the response and follow-up if needed. Please note: Queries are made part of the Legal Health Record. If you have any questions, please contact the author of this message via ITS. Dr. Brandyn Briones There is documentation of volume overload in the H/P and subsequent progress notes. .Additional clarification is requested for the cause if known. History/Risk Factors: CAD, DM, Hypertension, Renal Disease Clinical Indicators: 51-year-old male present to emergency room with complaints of worsening bilateral leg swelling and increased abdominal girth, swelling in the scrotal area. Mild shortness of breath. 03/17 Vital signs 162/98 129 22 97.6 97 % RA 03/17 CXR: No acute cardiopulmonary process 03/17 EKG: Sinus Tachycardia 03/17 Labs: BUN 31, creatinine 2.04, BNP 677 Treatment: Lasix 60 MG IV BID, change to Lasix drip @ 10ML (03/19) Low-salt diet 1500 ML fluid restriction Daily weights Lisinopril 10MG PO HS Imdur 60 MG PO DAILY Monitor renal function and urine output Can you please clarify cause of volume overload]? [ ] Volume overload due to acute on chronic kidney disease stage IIIb [x ] Volume overload due to acute systolic CHF, POA [ ] Other, please specify [ ] Unable to determine (Template Last Revised: July 2020) MTDD
--- NOTE | 2021-03-21 16:00 | PN ---
PROGRESS NOTE Mr. Walters is a 51-year-old gentleman with history of chronic kidney disease who was admitted with acute kidney injury and also fluid overload. Patient had significant edema. He was put on Lasix drip. Patient has been diuresed and is losing weight. Edema is improving. Patient is feeling better. Patient also has some urinary retention requiring a Weinberg catheter. Denied any chest pain. Overall he is looking better. Physical examination reveals an obesely built gentleman who is alert, oriented, does not appear to be in an acute distress. Lungs are clear. Heart is regular. Abdomen is soft. Extremities show 2+ edema. His lab values showed a creatinine of 2.78. Potassium is 4.4. Patient was also seen by Nephrology. Metolazone 5 mg is being added to the regimen. We will continue current medical therapy and follow his electrolytes and BUN and creatinine closely. Will see him and follow him. MMODL / IJN: [id number] /
[2021-03-21 16:45] LABS: Glucose,Whole Blood 325 mg/dL (75-99)
[2021-03-21 20:26] LABS: Glucose,Whole Blood 260 mg/dL (75-99)
[2021-03-21] MEDS: lisinopriL 10 MG TAB PO SCH (21:19)
[2021-03-21] MEDS: INSULIN DETEMIR (LEVEMIR) 100 UNIT/ML SYR SQ SCH (21:19)
[2021-03-21] MEDS: ATORVASTATIN 80 MG TAB PO SCH (21:19)
[2021-03-21] MEDS: MONTELUKAST 10 MG TAB PO SCH (21:20)
[2021-03-21] MEDS: SERTRALINE 50 MG TAB PO SCH (21:21)
[2021-03-21] MEDS ORDERED: MELATONIN 3 MG TABLET PO SCH (23:45)
[2021-03-22] MEDS: HYDROcodone/APAP 10-325MG 1 EACH TAB PO PRN ×4 (00:07→20:56)
[2021-03-22] MEDS: FUROSEMIDE 100 MG in SODIUM CHLORIDE 0.9% 90 ML IV SCH ×4 (03:53→23:28)
[2021-03-22 06:17] LABS: Glucose,Whole Blood 300 mg/dL (75-99)
[2021-03-22] MEDS: PANTOPRAZOLE 40 MG TABLET PO SCH ×2 (06:18→17:03)
[2021-03-22] MEDS: INSULIN ASPART (NovoLOG) 100 UNIT/ML VIAL SQ SCH ×3 (07:55→17:16)
[2021-03-22] MEDS: PREGABALIN 75 MG CAP PO SCH ×2 (07:55→20:57)
[2021-03-22] MEDS: METOPROLOL TARTRATE 50 MG TAB PO SCH ×2 (07:56→20:57)
[2021-03-22] MEDS: MECLIZINE 25 MG TAB PO SCH ×3 (07:56→20:57)
[2021-03-22] MEDS: TAMSULOSIN 0.4 MG CAP.ER.24H PO SCH (07:56)
[2021-03-22] MEDS: CLOPIDOGREL 75 MG TAB PO SCH (07:56)
[2021-03-22] MEDS: ISOSORBIDE MONONITRATE ER 60 MG TAB.ER.24H PO SCH (07:56)
[2021-03-22] MEDS: metOLazone 5 MG TAB PO SCH (07:56)
[2021-03-22] MEDS: ASPIRIN 81 MG PO SCH (07:56)
--- NOTE | 2021-03-22 08:54 | P.PN ---
Subjective Patient is seen in follow-up for acute kidney injury on chronic kidney disease. Creatinine 2.78 yesterday. Urine output documented as 3.4 L in the last 24 hours. Maintained on Lasix drip and metolazone. Edema improving. No vomiting or diarrhea. Weinberg catheter inserted for urinary retention. Vital signs are stable. General: The patient appeared well nourished and normally developed. HEENT: Head exam is unremarkable. LUNGS: Breath sounds decreased. HEART: Rate and Rhythm are regular. ABDOMEN: Soft, obese. EXTREMITITES: 2+ edema. Scrotal edema noted. Objective - Vital Signs Vital signs: Vital Signs Temp 97.7 F 03/22/21 07:47 Pulse 80 03/22/21 07:47 Resp 16 03/22/21 07:47 BP 138/72 03/22/21 07:47 Pulse Ox 95 03/22/21 08:14 Intake & Output 03/21/21 03/22/21 03/22/21 18:59 06:59 18:59 Intake Total 994 42.667 Output Total 2300 1100 950 Balance -1306 -1100 -907.333 Weight 148 kg Intake: Intake, IV Titration 100 42.667 Amount Furosemide 100 mg In 100 42.667 Sodium Chloride 0.9% 90 ml @ 15 MG/HR 15 mls/hr IV .Q6H40M [facility] Rx#: [id number] Oral 894 Output: Urine 2300 1100 950 Other: Voiding Method Indwelling Catheter Indwelling Catheter # Voids 1 # Bowel Movements 1 - Labs CBC & Chem 7: 03/18/21 03:14 03/21/21 09:49 Labs: Abnormal Lab Results - Last 24 Hours (Table) 03/21/21 03/21/21 03/21/21 Range/Units 09:49 11:52 16:42 Sodium 136 L (137-145) mmol/L Carbon Dioxide 32 H (22-30) mmol/L BUN 55 H (9-20) mg/dL Creatinine 2.78 H (0.66-1.25) mg/dL Glucose 304 H (74-99) mg/dL POC Glucose (mg/dL) 165 H 325 H (75-99) mg/dL Calcium 8.3 L (8.4-10.2) mg/dL Total Protein 5.9 L (6.3-8.2) g/dL Albumin 3.0 L (3.5-5.0) g/dL 03/21/21 03/22/21 Range/Units 20:25 06:15 Sodium (137-145) mmol/L Carbon Dioxide (22-30) mmol/L BUN (9-20) mg/dL Creatinine (0.66-1.25) mg/dL Glucose (74-99) mg/dL POC Glucose (mg/dL) 260 H 300 H (75-99) mg/dL Calcium (8.4-10.2) mg/dL Total Protein (6.3-8.2) g/dL Albumin (3.5-5.0) g/dL Assessment and Plan Plan: Assessment: 1. Acute kidney injury prerenal secondary to cardiorenal syndrome. Creatinine 2.04 on admission and is up to 2.78 yesterday. Renal ultrasound revealed no evidence of hydronephrosis. 2. Chronic kidney disease stage IIIB with baseline creatinine near 1.7 in August and September 2020. 3. Volume overload. Improving with diuresis. 4. Diabetes mellitus. 5. Coronary artery disease status post stenting and CABG in the past. 6. Hypertension with chronic kidney disease. Stable. 7. Proteinuria with albumin of 2.9. Rule out GN. Likely cause is diabetic kidney disease. UPC 8.8 g. Serologies negative so far. 8. Acute systolic CHF with ejection fraction of 45-50%. 9. Urinary retention status post Weinberg catheter placement. On Flomax. Plan: Maintain Lasix drip at 15 mL an hour. Maintain metolazone 5 mg once daily. Low-salt diet. 1500 mL fluid restriction. Daily weights. Maintain lisinopril as blood pressure is not low. Continue to monitor renal function and urine output. Follow-up serologies. Morning labs pending.
--- NOTE | 2021-03-22 13:46 | P.PN ---
Subjective Progress Note Date: 03/22/21 HISTORY OF PRESENT ILLNESS: This is a 51-year-old male with a past medical history significant for coronary artery disease with previous CABG and subsequent stenting, hypertension, h yperlipidemia, nicotine dependence, and morbid obesity. Patient follows in the office with Dr. Mallory. We have been asked to see the patient in consultation for CHF. Patient examined at the bedside. Patient states he was taken off his lasix 6-8 weeks ago due to worsening kidney function. He reports a weight gain of about 30-40 lbs since that time. He reports increased lower extremity edema. The patient was started on IV Lasix per the emergency room physician. The patient currently denies chest pain or pressure. Denies shortness of breath. EKG reveals sinus tachycardia with a heart rate of 125. Chest xray negative for acute process Most recent echocardiogram obtained in 2018 revealed ejection fraction 45-50%. Trace mitral regurgitation. Trace tricuspid regurgitation. Cardiac catheterization history: August 2018 feeling patent OMALLEY to LAD, pain and SVG to diagonal, patent SVG to RCA. Severe disease involving the first obtuse marginal branch of left circumflex as well as the ramus intermedius area patient underwent stenting of the first obtuse marginal branch of the left circumflex. Medical management was recommended for ramus intermedius. 03/19/2021 Patient examined this morning at the bedside. Patient currently denies chest pain or pressure. He continues to have lower extremity edema. He is on IV lasix. Fluid balance over the last 24 hours is -700cc. echocardiogram completed revealing ejection fraction 45-50%. 03/20/2021 Patient examined this morning at the bedside. Patient denies chest pain or pressure. He states his shortness of breath has improved. He reports improvement in his lower extremity edema. He is on IV Lasix drip per nephrology. Fluid balance over the last 24 hours is -4 L. Creatinine 2.2. Telemetry reveals sinus tachycardia with heart rate in the 120s. 03/22/2021: Patient has had good urine output and diuresing well with output of 3.4 L in the past 24 hours. He is maintained on Lasix drip and metabolism was started yesterday. Weinberg catheter was inserted for urinary retention. PHYSICAL EXAM: VITAL SIGNS: Reviewed. GENERAL: Well-developed in no acute distress. HEENT: Head is normocephalic. Pupils are equal, round. Sclerae anicteric. Mucous membranes of the mouth are moist. Neck supple. No JVD or thyromegaly LUNGS: Respirations even and unlabored. Lungs diminished to auscultation bilaterally. HEART: Tachycardic. Regular rate and rhythm. S1 and S2 heard. ABDOMEN: Soft. Nondistended. Nontender. EXTREMITIES: Normal range of motion. No clubbing or cyanosis. Peripheral pulses intact. 2-3+ bilateral lower extremity edema NEUROLOGIC: Awake and alert. Oriented x 3. ASSESSMENT: Lower extremity edema, CXR w/o s/s CHF and BNP WNL Coronary artery disease with previous CABG and stenting Hypertension Hyperlipidemia Acute on chronic kidney disease Abnormal troponins, secondary to above, no evidence of acute coronary syndrome Morbid obesity Diabetes PLAN: Continue Lasix drip at 15 ML's an hour Continue metolazone 5 mg once daily Continue low-salt diet and 1500 mL fluid restriction Continue to monitor I&O and daily weights, renal function and electrolytes Nephrology following. Continue lasix drip per nephrology. Further recommendations pending patient's course Nurse practitioner note has been reviewed by physician. Signing provider agrees with the documented findings, assessment, and plan of care. Objective - Vital Signs Vital signs: Vital Signs Temp 97.7 F 03/22/21 07:47 Pulse 80 03/22/21 07:47 Resp 16 03/22/21 07:47 BP 138/72 03/22/21 07:47 Pulse Ox 95 03/22/21 08:14 Intake & Output 03/21/21 03/22/21 03/22/21 18:59 06:59 18:59 Intake Total 994 42.667 Output Total 2300 1100 950 Balance -1306 -1100 -907.333 Weight 148 kg Intake: Intake, IV Titration 100 42.667 Amount Furosemide 100 mg In 100 42.667 Sodium Chloride 0.9% 90 ml @ 15 MG/HR 15 mls/hr IV .Q6H40M [facility] Rx#: [id number] Oral 894 Output: Urine 2300 1100 950 Other: Voiding Method Indwelling Catheter Indwelling Catheter # Voids 1 # Bowel Movements 1 - Labs CBC & Chem 7: 03/18/21 03:14 03/21/21 09:49 Labs: Abnormal Lab Results - Last 24 Hours (Table) 03/21/21 03/21/2103/21/21 Range/Units 09:49 11:52 16:42 Sodium 136 L (137-145) mmol/L Carbon Dioxide 32 H (22-30) mmol/L BUN 55 H (9-20) mg/dL Creatinine 2.78 H (0.66-1.25) mg/dL Glucose 304 H (74-99) mg/dL POC Glucose (mg/dL) 165 H 325 H (75-99) mg/dL Calcium 8.3 L (8.4-10.2) mg/dL Total Protein 5.9 L (6.3-8.2) g/dL Albumin 3.0 L (3.5-5.0) g/dL 03/21/21 03/22/21 Range/Units 20:25 06:15 Sodium (137-145) mmol/L Carbon Dioxide (22-30) mmol/L BUN (9-20) mg/dL Creatinine (0.66-1.25) mg/dL Glucose (74-99) mg/dL POC Glucose (mg/dL) 260 H 300 H (75-99) mg/dL Calcium (8.4-10.2) mg/dL Total Protein (6.3-8.2) g/dL Albumin (3.5-5.0) g/dL
[2021-03-22 14:10] LABS: Glucose,Whole Blood 128 mg/dL (75-99)
[2021-03-22 16:33] LABS: Calcium 8.3 mg/dL (8.4-10.2); Magnesium 1.7 mg/dL (1.6-2.3)
--- NOTE | 2021-03-22 16:44 | P.PN ---
Subjective Progress Note Date: 03/21/21 Principal diagnosis: Bilateral lower extremity swelling along with scrotal swelling/volume overload. Acute on chronic kidney disease stage III due to cardiorenal syndrome Patient is a 51-year-old male with a known history of coronary artery disease status post CABG, cardiac catheterization and stent placement, hypertension, hyperlipidemia, diabetes type 2 and chronic kidney disease past nephrolithiasis and chronic low back pain, morbid obesity with a BMI 51.4 presents to ER with complaints of worsening bilateral leg swelling and increased abdominal girth. Patient has been having worsening symptoms for the past few weeks. Patient is also complaining of swelling in the scrotal area. Denies any chest pain. Patient does have extensive cardiac history with previous history of CABG and 7 stents placement. Denies any fever or chills. No cough or sputum production. No nausea vomiting or abdominal pain or diarrhea. Chest x-ray showed no acute cardiopulmonary process Venous duplex showed suboptimal study without convincing evidence of acute DVT on either lower extremity. EKG showed sinus tachycardia. Poor data quality. Laboratory data showed WBC 8.9 hemoglobin 15.5 and platelets 175 BUN 31 creatinine 2.04, magnesium 1.5, troponin 0 0.074, 0.082 and 0.075, proBNP 677 Albumin 2.9, free T4 0.78 03/19/2021 Patient is currently sitting in the chair. Still having bilateral lower acuity swelling and scrotal edema. Patient was continued on IV Lasix. Change to Lasix drip. Denied any complaints of chest pain or shortness breath. No fever no chills. No cough or sputum production. No nausea vomiting abdominal pain or diarrhea. Laboratory data showed sodium 136 potassium 4.6 chloride 103 BUN 39 and creatinine 2.26 and blood sugar is 268 and magnesium 1.4 Hepatitis panel and complement within normal limits. Nephrology and cardiology is on board. Abdominal ultrasound showed no hydronephrosis. 2D echocardiogram showed overall left ventricular systolic function is mildly impaired ejection fraction 45 to 50%. Right ventricle is moderately enlarged. 03/20/2021 Patient is currently sitting in a chair. Awake alert 1x3. Still having bilateral lower extremity minor scrotal swelling. Complains of back pain as well. Otherwise laboratory data showed sodium 138 potassium 4.3 bicarb is 33 BUN 47 and creatinine 2.26 Patient is being current on Lasix drip. Patient denied any complaints of nausea vomiting abdominal pain or diarrhea. Diuresing well. Weinberg catheter is in place. Patient has been afebrile. No cough or sputum production. Nephrology is on board. 03/21/2021 Patient is currently lying in the bed. Awake alert oriented 3. Still having bilateral lower activity swelling and significant scrotal swelling. Patient is diuresing well. Blood pressure is stable. Denied any compressive dizziness or lightheadedness. Patient does feel weak. No nausea vomiting or abdominal pain or diarrhea. Nephrology and cardiology on board. Patient is being continued on Lasix drip. Laboratory data showed BUN 55 and creatinine 2.75. Current medications reviewed. Objective - Vital Signs Vital signs: Vital Signs Temp 98.3 F 03/21/21 19:41 Pulse 83 03/21/21 19:41 Resp 18 03/21/21 19:41 BP 138/79 03/21/21 19:41 Pulse Ox 95 03/21/21 19:41 Intake & Output 03/21/21 03/21/21 03/22/21 06:59 18:59 06:59 Intake Total 238.834 894 Output Total 2400 2300 Balance -2161.166 -1406 Weight 150.8 kg Intake: Intake, IV Titration 118.834 Amount Furosemide 100 mg In 118.834 Sodium Chloride 0.9% 90 ml @ 15 MG/HR 15 mls/hr IV .Q6H40M [facility] Rx#: [id number] Oral 120 894 Output: Urine 2400 2300 Other: Voiding Method Indwelling Catheter Indwelling Catheter # Voids 1 - Exam PHYSICAL EXAMINATION: Patient is lying in the bed comfortably, no acute distress, awake alert and oriented.Morbidly obese.. HEENT: Normocephalic. Neck is supple. Pupils reactive. Nostrils clear. Oral cavity is moist. Neck reveals no JVD, carotid bruits, or thyromegaly. CHEST EXAMINATION: Trachea is central. Symmetrical expansion. Lung taveras clear to auscultation and percussion. CARDIAC: Normal S1, S2 with no gallops. No murmurs ABDOMEN: Soft. Bowel sounds normal. No organomegaly. No abdominal bruits. Extremities: Bilateral lower extremity 4+ pitting edema.. No clubbing or cyanosis, Scrotal swelling Neurologically awake, alert, oriented x3 with well-coordinated movements. No focal deficits noted Skin: No rash or skin lesions. Psychiatric: Cooperative. Nonsuicidal Musculoskeletal: No joint swelling or deformity. Normal range of motion. - Labs CBC & Chem 7: 03/18/21 03:14 03/21/21 09:49 Labs: Abnormal Lab Results - Last 24 Hours (Table) 03/21/21 03/21/21 03/21/21 Range/Units 05:43 09:49 11:52 Sodium 136 L (137-145) mmol/L Carbon Dioxide 32 H (22-30) mmol/L BUN 55 H (9-20) mg/dL Creatinine 2.78 H (0.66-1.25) mg/dL Glucose 304 H (74-99) mg/dL POC Glucose (mg/dL) 280 H 165 H (75-99) mg/dL Calcium 8.3 L (8.4-10.2) mg/dL Total Protein 5.9 L (6.3-8.2) g/dL Albumin 3.0 L (3.5-5.0) g/dL 03/21/21 03/21/21 Range/Units 16:42 20:25 Sodium (137-145) mmol/L Carbon Dioxide (22-30) mmol/L BUN (9-20) mg/dL Creatinine (0.66-1.25) mg/dL Glucose (74-99) mg/dL POC Glucose (mg/dL) 325 H 260 H (75-99) mg/dL Calcium (8.4-10.2) mg/dL Total Protein (6.3-8.2) g/dL Albumin (3.5-5.0) g/dL Assessment and Plan Assessment: Bilateral lower extremity swelling along with scrotal swelling/volume overload. Acute on chronic kidney disease stage III due to cardiorenal syndrome Elevated troponin level. Likely due to acute on chronic kidney disease.. Hypertension Diabetes type 2Insulin-dependent. Coronary artery disease status post stent placement and CABG history. Morbid obesity with a BMI 51.4. Hypomagnesemia. Replaced. DVT prophylaxis with heparin subcu Plan: Patient was given IV Lasix in the ER.Continued with IV Lasix 60 mg twice daily and monitor blood pressure and renal function closely. Duplex scan is negative for DVT. IV Lasix changed to Lasix drip Patient was started on heparin drip due to elevated troponin level.Unlikely ACS. Discontinued now. Continue with aspirin, statins and Plavix. Start back on home insulin regimen and sliding scale. Continue to follow closely. Cardiology and nephrology is on board. Prognosis guarded with mul tiple medical problems and comorbid conditions. Time with Patient: Greater than 30
[2021-03-22 16:58] LABS: Glucose,Whole Blood 76 mg/dL (75-99)
[2021-03-22] MEDS ORDERED: TEMAZEPAM 15 MG CAP PO PRN (17:15)
[2021-03-22 17:21] LABS: Basophils # (A) 0.1 k/uL (0-0.2); Basophils % (A) 1 %; Eosinophils # (A) 0.3 k/uL (0-0.7); Eosinophils % (A) 2 %; HCT 43.2 % (39.0-53.0); HGB 13.8 gm/dL (13.0-17.5); Lymphocytes # (A) 1.4 k/uL (1.0-4.8); Lymphocytes % (A) 12 %; MCH 32.2 pg (25.0-35.0); MCHC 31.8 g/dL (31.0-37.0); Macrocytosis Slight; Mean Platelet Volume 10.1; Monocytes # (A) 0.9 k/uL (0-1.0); Monocytes % (A) 8 %; Neutrophils # (A) 8.1 k/uL (1.3-7.7); Neutrophils % (A) 72 %; Platelet Count 142 k/uL (150-450); RBC 4.28 m/uL (4.30-5.90); RDW 14.6 % (11.5-15.5); WBC 11.3 k/uL (3.8-10.6)
[2021-03-22 17:35] LABS: Calcium 8.5 mg/dL (8.4-10.2); Potassium 4.7 mmol/L (3.5-5.1)
[2021-03-22 18:02] LABS: Appearance,Urine Clear (Clear); Bacteria,Urine Rare /hpf; Bilirubin,Urine Negative (Negative); Blood,Urine Large (Negative); Color,Urine Light Yellow; Glucose,Urine (UA) Negative (Negative); Ketones,Urine Negative (Negative); Leukocyte Esterase,Urine Small (Negative); Mucus,Urine Occasional /hpf; Nitrite,Urine Negative (Negative); PH, Urine 5.5 (5.0-8.0); Protein,Urine 2+ (Negative); RBC,Urine >182 /hpf (0-5); Specific Gravity,Urine 1.009 (1.001-1.035); Squamous Epithelial Cell,Urine 1 /hpf (0-4); Urobilinogen,Urine <2.0 mg/dL (<2.0); WBC,Urine 5 /hpf (0-5)
[2021-03-22 20:13] LABS: Glucose,Whole Blood 183 mg/dL (75-99)
[2021-03-22] MEDS: lisinopriL 10 MG TAB PO SCH (20:57)
[2021-03-22] MEDS: SERTRALINE 50 MG TAB PO SCH (20:57)
[2021-03-22] MEDS: MONTELUKAST 10 MG TAB PO SCH (20:57)
[2021-03-22] MEDS: ATORVASTATIN 80 MG TAB PO SCH (20:57)
[2021-03-22] MEDS: INSULIN DETEMIR (LEVEMIR) 100 UNIT/ML SYR SQ SCH (20:57)
[2021-03-22 22:49] LABS: DNA Double-Stranded NEGATIVE (NEGATIVE)
[2021-03-23] MEDS: HYDROcodone/APAP 10-325MG 1 EACH TAB PO PRN ×2 (02:19→06:36)
[2021-03-23 06:36] LABS: Glucose,Whole Blood 387 mg/dL (75-99)
[2021-03-23] MEDS: PANTOPRAZOLE 40 MG TABLET PO SCH ×2 (06:36→17:00)
[2021-03-23] MEDS: ALBUTEROL HFA INHALER INHALATION PRN ×2 (07:27→12:18)
[2021-03-23] MEDS: FUROSEMIDE 100 MG in SODIUM CHLORIDE 0.9% 90 ML IV SCH ×2 (07:52→17:29)
[2021-03-23] MEDS: ASPIRIN 81 MG PO SCH (07:53)
[2021-03-23] MEDS: INSULIN ASPART (NovoLOG) 100 UNIT/ML VIAL SQ SCH ×3 (07:53→16:59)
[2021-03-23] MEDS: metOLazone 5 MG TAB PO SCH (07:53)
[2021-03-23] MEDS: MECLIZINE 25 MG TAB PO SCH ×3 (07:54→21:36)
[2021-03-23] MEDS: ISOSORBIDE MONONITRATE ER 60 MG TAB.ER.24H PO SCH (07:54)
[2021-03-23] MEDS: PREGABALIN 75 MG CAP PO SCH ×2 (07:54→21:36)
[2021-03-23] MEDS: CLOPIDOGREL 75 MG TAB PO SCH (07:54)
[2021-03-23] MEDS: TAMSULOSIN 0.4 MG CAP.ER.24H PO SCH (07:54)
[2021-03-23] MEDS: METOPROLOL TARTRATE 50 MG TAB PO SCH ×2 (07:54→21:36)
[2021-03-23] MEDS ORDERED: ERGOCALCIFEROL 1,250 MCG (50,000 IU) CAPSULE PO SCH (09:00)
--- NOTE | 2021-03-23 09:15 | P.PN ---
Subjective Patient is seen in follow-up for acute kidney injury on chronic kidney disease. Renal function worsening with diuresis. Creatinine 3.59 yesterday. Urine output documented as 5.2 L in the last 24 hours. Maintained on Lasix drip and metolazone. Edema improving. No vomiting or diarrhea. Weinberg catheter inserted for urinary retention. Vital signs are stable. General: The patient appeared well nourished and normally developed. HEENT: Head exam is unremarkable. LUNGS: Breath sounds decreased. HEART: Rate and Rhythm are regular. ABDOMEN: Soft, obese. EXTREMITITES: 2+ edema. Scrotal edema noted. Objective - Vital Signs Vital signs: Vital Signs Temp 98.1 F 03/23/21 07:42 Pulse 85 03/23/21 07:42 Resp 16 03/23/21 07:42 BP 135/88 03/23/21 07:42 Pulse Ox 95 03/23/21 07:42 Intake & Output 03/22/21 03/23/21 03/23/21 18:59 06:59 18:59 Intake Total 826.667 640 Output Total 1700 3500 Balance -873.333 -2860 Weight 150.2 kg Intake: Intake, IV Titration 142.667 100 Amount Furosemide 100 mg In 142.667 100 Sodium Chloride 0.9% 90 ml @ 15 MG/HR 15 mls/hr IV .Q6H40M [facility] Rx#: [id number] Oral 684 540 Output: Urine 1700 3500 Other: Voiding Method Indwelling Catheter Indwelling Catheter Indwelling Catheter - Labs CBC & Chem 7: 03/22/21 16:59 03/22/21 16:59 Labs: Abnormal Lab Results - Last 24 Hours (Table) 03/22/21 03/22/21 03/22/21 Range/Units 14:08 15:50 16:59 WBC 11.3 H (3.8-10.6) k/uL RBC 4.28 L (4.30-5.90) m/uL MCV 101.0 H (80.0-100.0) fL Plt Count 142 L (150-450) k/uL Neutrophils # 8.1 H (1.3-7.7) k/uL Potassium 6.0 H (3.5-5.1) mmol/L BUN 76 H (9-20) mg/dL Creatinine 3.45 H (0.66-1.25) mg/dL POC Glucose (mg/dL) 128 H (75-99) mg/dL Calcium 8.3 L (8.4-10.2) mg/dL Urine Protein (Negative) Urine Blood (Negative) Ur Leukocyte Esterase (Negative) Urine RBC (0-5) /hpf Urine Bacteria (None) /hpf Urine Mucus (None) /hpf 03/22/21 03/22/21 03/22/21 Range/Units 16:59 17:30 20:11 WBC (3.8-10.6) k/uL RBC (4.30-5.90) m/uL MCV (80.0-100.0) fL Plt Count (150-450) k/uL Neutrophils # (1.3-7.7) k/uL Potassium (3.5-5.1) mmol/L BUN 77 H (9-20) mg/dL Creatinine 3.59 H (0.66-1.25) mg/dL POC Glucose (mg/dL) 183 H (75-99) mg/dL Calcium (8.4-10.2) mg/dL Urine Protein 2+ H (Negative) Urine Blood Large H (Negative) Ur Leukocyte Esterase Small H (Negative) Urine RBC >182 H (0-5) /hpf Urine Bacteria Rare H (None) /hpf Urine Mucus Occasional H (None) /hpf 03/23/21 Range/Units 06:33 WBC (3.8-10.6) k/uL RBC (4.30-5.90) m/uL MCV (80.0-100.0) fL Plt Count (150-450) k/uL Neutrophils # (1.3-7.7) k/uL Potassium (3.5-5.1) mmol/L BUN (9-20) mg/dL Creatinine (0.66-1.25) mg/dL POC Glucose (mg/dL) 387 H (75-99) mg/dL Calcium (8.4-10.2) mg/dL Urine Protein (Negative) Urine Blood (Negative) Ur Leukocyte Esterase (Negative) Urine RBC (0-5) /hpf Urine Bacteria (None) /hpf Urine Mucus (None) /hpf Assessment and Plan Plan: Assessment: 1. Acute kidney injury prerenal secondary to cardiorenal syndrome. Creatinine 2.04 on admission and is up to 3.59 yesterday. Renal ultrasound revealed no evidence of hydronephrosis. 2. Chronic kidney disease stage IIIB with baseline creatinine near 1.7 in August and September 2020. 3. Volume overload. Improving with diuresis. 4. Diabetes mellitus. 5. Coronary artery disease status post stenting and CABG in the past. 6. Hypertension with chronic kidney disease. Stable. 7. Proteinuria with albumin of 2.9. Rule out GN. Likely cause is diabetic kidney disease. UPC 8.8 g. Serologies negative so far. 8. Acute systolic CHF with ejection fraction of 45-50%. 9. Urinary retention status post Weinberg catheter placement. On Flomax. Plan: Decrease Lasix drip to 10 mg per hour. Maintain metolazone 5 mg once daily. Low-salt diet. 1500 mL fluid restriction. Daily weights. Maintain lisinopril as blood pressure is not low. Continue to monitor renal function and urine output. Follow-up pending serologies. Morning labs pending.
[2021-03-23 11:54] LABS: Glucose,Whole Blood 89 mg/dL (75-99)
[2021-03-23 13:20] LABS: Albumin 3.5 g/dL (3.5-5.0); Calcium 8.9 mg/dL (8.4-10.2); Magnesium 1.7 mg/dL (1.6-2.3); Potassium 5.1 mmol/L (3.5-5.1); Total Bilirubin 1.1 mg/dL (0.2-1.3); Total Protein 6.8 g/dL (6.3-8.2)
--- NOTE | 2021-03-23 13:56 | P.PN ---
Subjective Progress Note Date: 03/23/21 HISTORY OF PRESENT ILLNESS: This is a 51-year-old male with a past medical history significant for coronary artery disease with previous CABG and subsequent stenting, hypertension, h yperlipidemia, nicotine dependence, and morbid obesity. Patient follows in the office with Dr. Mallory. We have been asked to see the patient in consultation for CHF. Patient examined at the bedside. Patient states he was taken off his lasix 6-8 weeks ago due to worsening kidney function. He reports a weight gain of about 30-40 lbs since that time. He reports increased lower extremity edema. The patient was started on IV Lasix per the emergency room physician. The patient currently denies chest pain or pressure. Denies shortness of breath. EKG reveals sinus tachycardia with a heart rate of 125. Chest xray negative for acute process Most recent echocardiogram obtained in 2018 revealed ejection fraction 45-50%. Trace mitral regurgitation. Trace tricuspid regurgitation. Cardiac catheterization history: August 2018 feeling patent OMALLEY to LAD, pain and SVG to diagonal, patent SVG to RCA. Severe disease involving the first obtuse marginal branch of left circumflex as well as the ramus intermedius area patient underwent stenting of the first obtuse marginal branch of the left circumflex. Medical management was recommended for ramus intermedius. 03/19/2021 Patient examined this morning at the bedside. Patient currently denies chest pain or pressure. He continues to have lower extremity edema. He is on IV lasix. Fluid balance over the last 24 hours is -700cc. echocardiogram completed revealing ejection fraction 45-50%. 03/20/2021 Patient examined this morning at the bedside. Patient denies chest pain or pressure. He states his shortness of breath has improved. He reports improvement in his lower extremity edema. He is on IV Lasix drip per nephrology. Fluid balance over the last 24 hours is -4 L. Creatinine 2.2. Telemetry reveals sinus tachycardia with heart rate in the 120s. 03/22/2021: Patient has had good urine output and diuresing well with output of 3.4 L in the past 24 hours. He is maintained on Lasix drip and metolazone was started yesterday. Weinberg catheter was inserted for urinary retention. 03/23/2021: Patient continues to have good urine output with 5.2 L in the past 24 hours. He does have lower extremity edema but improving. He remains on Lasix drip decreased to 10 mg per hour, continued on metolazone 5 mg once daily, low-salt diet and fluid restrictions. BUN 86 and creatinine 3.86, potassium 5.1, magnesium 1.7. PHYSICAL EXAM: VITAL SIGNS: Blood pressure 130/76, heart rate 85, pulse ox 95% on room air, afebrile. GENERAL: Well-developed in no acute distress. HEENT: Head is normocephalic. Pupils are equal, round. Sclerae anicteric. Mucous membranes of the mouth are moist. Neck supple. No JVD or thyromegaly LUNGS: Respirations even and unlabored. Lungs diminished to auscultation bilaterally. HEART: Tachycardic. Regular rate and rhythm. S1 and S2 heard. ABDOMEN: Soft. Nondistended. Nontender. EXTREMITIES: Normal range of motion. No clubbing or cyanosis. Peripheral pulses intact. 2+ bilateral lower extremity edema NEUROLOGIC: Awake and alert. Oriented x 3. ASSESSMENT: Lower extremity edema, CXR w/o s/s CHF and BNP WNL Coronary artery disease with previous CABG and stenting Hypertension Hyperlipidemia Acute on chronic kidney disease Abnormal troponins, secondary to above, no evidence of acute coronary syndrome Morbid obesity Diabetes PLAN: Continue Lasix drip decreased to 10 ML's an hour Continue metolazone 5 mg once daily Continue low-salt diet and 1500 mL fluid restriction Continue to monitor I&O and daily weights, renal function and electrolytes Nephrology following. Continue lasix drip per nephrology. Further recommendations pending patient's course Nurse practitioner note has been reviewed by physician. Signing provider agrees with the documented findings, assessment, and plan of care. Objective - Vital Signs Vital signs: Vital Signs Temp 98.1 F 03/23/21 07:42 Pulse 85 03/23/21 07:42 Resp 16 03/23/21 07:42 BP 135/88 03/23/21 07:42 Pulse Ox 95 03/23/21 07:42 Intake & Output 03/22/21 03/23/21 03/23/21 18:59 06:59 18:59 Intake Total 826.667 640 118 Output Total 1700 3500 800 Balance -873.333 -8150 -902 Weight 150.2 kg Intake: Intake, IV Titration 142.667 100 Amount Furosemide 100 mg In 142.667 100 Sodium Chloride 0.9% 90 ml @ 5 MG/HR 5 mls/hr IV .Q20H [facility] Rx#:[id number] Oral 684 540 118 Output: Urine 1700 3500 800 Other: Voiding Method Indwelling Catheter Indwelling Catheter Indwelling Catheter - Labs CBC & Chem 7: 03/22/21 16:59 03/23/21 12:29 Labs: Abnormal Lab Results - Last 24 Hours (Table) 03/22/21 03/22/21 03/22/21 Range/Units 14:08 15:50 16:59 WBC 11.3 H (3.8-10.6) k/uL RBC 4.28 L (4.30-5.90) m/uL MCV 101.0 H (80.0-100.0) fL Plt Count 142 L (150-450) k/uL Neutrophils # 8.1 H (1.3-7.7) k/uL Potassium 6.0 H (3.5-5.1) mmol/L BUN 76 H (9-20) mg/dL Creatinine 3.45 H (0.66-1.25) mg/dL POC Glucose (mg/dL) 128 H (75-99) mg/dL Calcium 8.3 L (8.4-10.2) mg/dL Urine Protein (Negative) Urine Blood (Negative) Ur Leukocyte Esterase (Negative) Urine RBC (0-5) /hpf Urine Bacteria (None) /hpf Urine Mucus (None) /hpf 03/22/21 03/22/21 03/22/21 Range/Units 16:59 17:30 20:11 WBC (3.8-10.6) k/uL RBC (4.30-5.90) m/uL MCV (80.0-100.0) fL Plt Count (150-450) k/uL Neutrophils # (1.3-7.7) k/uL Potassium (3.5-5.1) mmol/L BUN 77 H (9-20) mg/dL Creatinine 3.59 H (0.66-1.25) mg/dL POC Glucose (mg/dL) 183 H (75-99) mg/dL Calcium (8.4-10.2) mg/dL Urine Protein 2+ H (Negative) Urine Blood Large H (Negative) Ur Leukocyte Esterase Small H (Negative) Urine RBC >182 H (0-5) /hpf Urine Bacteria Rare H (None) /hpf Urine Mucus Occasional H (None) /hpf 03/23/21 Range/Units 06:33 WBC (3.8-10.6) k/uL RBC (4.30-5.90) m/uL MCV (80.0-100.0) fL Plt Count (150-450) k/uL Neutrophils # (1.3-7.7) k/uL Potassium (3.5-5.1) mmol/L BUN (9-20) mg/dL Creatinine (0.66-1.25) mg/dL POC Glucose (mg/dL) 387 H (75-99) mg/dL Calcium (8.4-10.2) mg/dL Urine Protein (Negative) Urine Blood (Negative) Ur Leukocyte Esterase (Negative) Urine RBC (0-5) /hpf Urine Bacteria (None) /hpf Urine Mucus (None) /hpf
[2021-03-23 16:54] LABS: Glucose,Whole Blood 152 mg/dL (75-99)
[2021-03-23] MEDS: NYSTATIN 100,000UNIT/GM CREAM 30 GM TUBE TOPICAL SCH (17:45)
[2021-03-23 20:25] LABS: Glucose,Whole Blood 101 mg/dL (75-99)
--- NOTE | 2021-03-23 21:35 | P.PN ---
Subjective Progress Note Date: 03/22/21 Principal diagnosis: Bilateral lower extremity swelling along with scrotal swelling/volume overload. Acute on chronic kidney disease stage III due to cardiorenal syndrome Patient is a 51-year-old male with a known history of coronary artery disease status post CABG, cardiac catheterization and stent placement, hypertension, hyperlipidemia, diabetes type 2 and chronic kidney disease past nephrolithiasis and chronic low back pain, morbid obesity with a BMI 51.4 presents to ER with complaints of worsening bilateral leg swelling and increased abdominal girth. Patient has been having worsening symptoms for the past few weeks. Patient is also complaining of swelling in the scrotal area. Denies any chest pain. Patient does have extensive cardiac history with previous history of CABG and 7 stents placement. Denies any fever or chills. No cough or sputum production. No nausea vomiting or abdominal pain or diarrhea. Chest x-ray showed no acute cardiopulmonary process Venous duplex showed suboptimal study without convincing evidence of acute DVT on either lower extremity. EKG showed sinus tachycardia. Poor data quality. Laboratory data showed WBC 8.9 hemoglobin 15.5 and platelets 175 BUN 31 creatinine 2.04, magnesium 1.5, troponin 0 0.074, 0.082 and 0.075, proBNP 677 Albumin 2.9, free T4 0.78 03/19/2021 Patient is currently sitting in the chair. Still having bilateral lower acuity swelling and scrotal edema. Patient was continued on IV Lasix. Change to Lasix drip. Denied any complaints of chest pain or shortness breath. No fever no chills. No cough or sputum production. No nausea vomiting abdominal pain or diarrhea. Laboratory data showed sodium 136 potassium 4.6 chloride 103 BUN 39 and creatinine 2.26 and blood sugar is 268 and magnesium 1.4 Hepatitis panel and complement within normal limits. Nephrology and cardiology is on board. Abdominal ultrasound showed no hydronephrosis. 2D echocardiogram showed overall left ventricular systolic function is mildly impaired ejection fraction 45 to 50%. Right ventricle is moderately enlarged. 03/20/2021 Patient is currently sitting in a chair. Awake alert 1x3. Still having bilateral lower extremity minor scrotal swelling. Complains of back pain as well. Otherwise laboratory data showed sodium 138 potassium 4.3 bicarb is 33 BUN 47 and creatinine 2.26 Patient is being current on Lasix drip. Patient denied any complaints of nausea vomiting abdominal pain or diarrhea. Diuresing well. Weinberg catheter is in place. Patient has been afebrile. No cough or sputum production. Nephrology is on board. 03/21/2021 Patient is currently lying in the bed. Awake alert oriented 3. Still having bilateral lower activity swelling and significant scrotal swelling. Patient is diuresing well. Blood pressure is stable. Denied any compressive dizziness or lightheadedness. Patient does feel weak. No nausea vomiting or abdominal pain or diarrhea. Nephrology and cardiology on board. Patient is being continued on Lasix drip. Laboratory data showed BUN 55 and creatinine 2.75. 03/22/2021 Patient is currently sitting in the chair. Feels very weak. Denies any complaints of chest pain or worsening shortness breath. Patient is diuresing well with Lasix drip. Patient is also on metolazone. Bilateral lower extremity swelling is improving. Still having significant scrotal swelling. Weinberg catheter is in place. No complaints of nausea vomiting or diarrhea. Denies any headache or dizziness or lightheadedness. Blood sugar is down to 70s and insulin dose was reduced. Laboratory showed BUN 77 creatinine 3.59, WBC 11.3 hemoglobin 13.8 and platelets 142 Urinalysis showed large blood and elevated RBCs. No infection. Nephrology and cardiology is on board. Current medications reviewed. Objective - Vital Signs Vital signs: Vital Signs Temp 97.4 F L 03/22/21 12:00 Pulse 83 03/22/21 16:21 Resp 18 03/22/21 16:21 BP 163/77 03/22/21 16:21 Pulse Ox 95 03/22/21 16:21 Intake & Output 03/21/21 03/22/21 03/22/21 18:59 06:59 18:59 Intake Total 994 586.667 Output Total 2300 1100 950 Balance -1306 -1100 -363.333 Weight 148 kg Intake: Intake, IV Titration 100 142.667 Amount Furosemide 100 mg In 100 142.667 Sodium Chloride 0.9% 90 ml @ 15 MG/HR 15 mls/hr IV .[id number] [facility] Rx#: [id number] Oral [id number] Output: Urine 2300 1100 950 Other: Voiding Method Indwelling Catheter Indwelling Catheter Indwelling Catheter # Voids 1 # Bowel Movements 1 - Exam PHYSICAL EXAMINATION: Patient is lying in the bed comfortably, no acute distress, awake alert and oriented.Morbidly obese.. HEENT: Normocephalic. Neck is supple. Pupils reactive. Nostrils clear. Oral cavity is moist. Neck reveals no JVD, carotid bruits, or thyromegaly. CHEST EXAMINATION: Trachea is central. Symmetrical expansion. Lung taveras clear to auscultation and percussion. CARDIAC: Normal S1, S2 with no gallops. No murmurs ABDOMEN: Soft. Bowel sounds normal. No organomegaly. No abdominal bruits. Extremities: Bilateral lower extremity 4+ pitting edema.. No clubbing or cyanosis, Scrotal swelling Neurologically awake, alert, oriented x3 with well-coordinated movements. No focal deficits noted Skin: No rash or skin lesions. Psychiatric: Cooperative. Nonsuicidal Musculoskeletal: No joint swelling or deformity. Normal range of motion. - Labs CBC & Chem 7: 03/22/21 16:59 03/23/21 12:29 Labs: Abnormal Lab Results - Last 24 Hours (Table) 03/21/21 03/21/21 03/22/21 Range/Units 16:42 20:25 06:15 POC Glucose (mg/dL) 325 H 260 H 300 H (75-99) mg/dL 03/22/21 Range/Units 14:08 POC Glucose (mg/dL) 128 H (75-99) mg/dL Assessment and Plan Assessment: Bilateral lower extremity swelling along with scrotal swelling/volume overload. Acute on chronic kidney disease stage III due to cardiorenal syndrome Elevated troponin level. Likely due to acute on chronic kidney disease.. Hypertension Diabetes type 2Insulin-dependent. Coronary artery disease status post stent placement and CABG history. Morbid obesity with a BMI 51.4. Hypomagnesemia. Replaced. DVT prophylaxis with heparin subcu Plan: Patient was given IV Lasix in the ER.Continued with IV Lasix 60 mg twice daily and monitor blood pressure and renal function closely. Duplex scan is negative for DVT. IV Lasix changed to Lasix drip Patient was started on heparin drip due to elevated troponin level.Unlikely ACS. Discontinued now. Continue with aspirin, statins and Plavix. Start back on home insulin regimen and sliding scale. Continue to follow closely. Cardiology and nephrology is on board. Prognosis guarded with multiple medical problems and comorbid conditions.
[2021-03-23] MEDS: ATORVASTATIN 80 MG TAB PO SCH (21:36)
[2021-03-23] MEDS: MONTELUKAST 10 MG TAB PO SCH (21:36)
[2021-03-23] MEDS: SERTRALINE 50 MG TAB PO SCH (21:36)
[2021-03-23] MEDS: INSULIN DETEMIR (LEVEMIR) 100 UNIT/ML SYR SQ SCH (21:36)
--- NOTE | 2021-03-23 21:38 | P.PN ---
Subjective Progress Note Date: 03/23/21 Principal diagnosis: Bilateral lower extremity swelling along with scrotal swelling/volume overload. Acute on chronic kidney disease stage III due to cardiorenal syndrome Patient is a 51-year-old male with a known history of coronary artery disease status post CABG, cardiac catheterization and stent placement, hypertension, hyperlipidemia, diabetes type 2 and chronic kidney disease past nephrolithiasis and chronic low back pain, morbid obesity with a BMI 51.4 presents to ER with complaints of worsening bilateral leg swelling and increased abdominal girth. Patient has been having worsening symptoms for the past few weeks. Patient is also complaining of swelling in the scrotal area. Denies any chest pain. Patient does have extensive cardiac history with previous history of CABG and 7 stents placement. Denies any fever or chills. No cough or sputum production. No nausea vomiting or abdominal pain or diarrhea. Chest x-ray showed no acute cardiopulmonary process Venous duplex showed suboptimal study without convincing evidence of acute DVT on either lower extremity. EKG showed sinus tachycardia. Poor data quality. Laboratory data showed WBC 8.9 hemoglobin 15.5 and platelets 175 BUN 31 creatinine 2.04, magnesium 1.5, troponin 0 0.074, 0.082 and 0.075, proBNP 677 Albumin 2.9, free T4 0.78 03/19/2021 Patient is currently sitting in the chair. Still having bilateral lower acuity swelling and scrotal edema. Patient was continued on IV Lasix. Change to Lasix drip. Denied any complaints of chest pain or shortness breath. No fever no chills. No cough or sputum production. No nausea vomiting abdominal pain or diarrhea. Laboratory data showed sodium 136 potassium 4.6 chloride 103 BUN 39 and creatinine 2.26 and blood sugar is 268 and magnesium 1.4 Hepatitis panel and complement within normal limits. Nephrology and cardiology is on board. Abdominal ultrasound showed no hydronephrosis. 2D echocardiogram showed overall left ventricular systolic function is mildly impaired ejection fraction 45 to 50%. Right ventricle is moderately enlarged. 03/20/2021 Patient is currently sitting in a chair. Awake alert 1x3. Still having bilateral lower extremity minor scrotal swelling. Complains of back pain as well. Otherwise laboratory data showed sodium 138 potassium 4.3 bicarb is 33 BUN 47 and creatinine 2.26 Patient is being current on Lasix drip. Patient denied any complaints of nausea vomiting abdominal pain or diarrhea. Diuresing well. Weinberg catheter is in place. Patient has been afebrile. No cough or sputum production. Nephrology is on board. 03/21/2021 Patient is currently lying in the bed. Awake alert oriented 3. Still having bilateral lower activity swelling and significant scrotal swelling. Patient is diuresing well. Blood pressure is stable. Denied any compressive dizziness or lightheadedness. Patient does feel weak. No nausea vomiting or abdominal pain or diarrhea. Nephrology and cardiology on board. Patient is being continued on Lasix drip. Laboratory data showed BUN 55 and creatinine 2.75. 03/22/2021 Patient is currently sitting in the chair. Feels very weak. Denies any complaints of chest pain or worsening shortness breath. Patient is diuresing well with Lasix drip. Patient is also on metolazone. Bilateral lower extremity swelling is improving. Still having significant scrotal swelling. Weinberg catheter is in place. No complaints of nausea vomiting or diarrhea. Denies any headache or dizziness or lightheadedness. Blood sugar is down to 70s and insulin dose was reduced. Laboratory showed BUN 77 creatinine 3.59, WBC 11.3 hemoglobin 13.8 and platelets 142 Urinalysis showed large blood and elevated RBCs. No infection. Nephrology and cardiology is on board. 03/23/2021 Patient was admitted to the hospital due to volume overload. Patient is currently sitting in the chair. Feels better today. No complaints of chest pain or worsening shortness of breath. Bilateral lower extremity swe lling is improving. Still having scrotal swelling. Remains on IV Lasix drip and also on metolazone. Patient has good urine output with 5.2 L in the past 24 hours.. Next No nausea vomiting or diarrhea. Able to tolerate oral diet. Insulin dose was reduced due to hypoglycemic episodes. Laboratory showed BUN 86 and creatinine 3.86. Cardiology nephrology is on board. Current medications reviewed. Objective - Vital Signs Vital signs: Vital Signs Temp 98.1 F 03/23/21 16:00 Pulse 110 H 03/23/21 16:00 Resp 18 03/23/21 16:00 BP 136/91 03/23/21 16:00 Pulse Ox 95 03/23/21 16:00 Intake & Output 03/22/21 03/23/21 03/23/21 18:59 06:59 18:59 Intake Total 826.667 640 236 Output Total 1700 3500 1275 Balance -873.826 -7957 -5059 Weight 150.2 kg Intake: Intake, IV Titration 142.667 100 Amount Furosemide 100 mg In 142.667 100 Sodium Chloride 0.9% 90 ml @ 5 MG/HR 5 mls/hr IV .Q20H [facility] Rx#:[id number] Oral [id number] Output: Urine 1700 3500 1275 Other: Voiding Method Indwelling Catheter Indwelling Catheter Indwelling Catheter - Exam PHYSICAL EXAMINATION: Patient is lying in the bed comfortably, no acute distress, awake alert and oriented.Morbidly obese.. HEENT: Normocephalic. Neck is supple. Pupils reactive. Nostrils clear. Oral cavity is moist. Neck reveals no JVD, carotid bruits, or thyromegaly. CHEST EXAMINATION: Trachea is central. Symmetrical expansion. Lung taveras clear to auscultation and percussion. CARDIAC: Normal S1, S2 with no gallops. No murmurs ABDOMEN: Soft. Bowel sounds normal. No organomegaly. No abdominal bruits. Extremities: Bilateral lower extremity 4+ pitting edema.. No clubbing or cyanosis, Scrotal swelling Neurologically awake, alert, oriented x3 with well-coordinated movements. No focal deficits noted Skin: No rash or skin lesions. Psychiatric: Cooperative. Nonsuicidal Musculoskeletal: No joint swelling or deformity. Normal range of motion. - Labs CBC & Chem 7: 03/22/21 16:59 03/23/21 12:29 Labs: Abnormal Lab Results - Last 24 Hours (Table) 03/22/21 03/22/21 03/22/21 Range/Units 16:59 16:59 17:30 WBC 11.3 H (3.8-10.6) k/uL RBC 4.28 L (4.30-5.90) m/uL MCV 101.0 H (80.0-100.0) fL Plt Count 142 L (150-450) k/uL Neutrophils # 8.1 H (1.3-7.7) k/uL Chloride (98-107) mmol/L Carbon Dioxide (22-30) mmol/L BUN 77 H (9-20) mg/dL Creatinine 3.59 H (0.66-1.25) mg/dL POC Glucose (mg/dL) (75-99) mg/dL Urine Protein 2+ H (Negative) Urine Blood Large H (Negative) Ur Leukocyte Esterase Small H (Negative) Urine RBC >182 H (0-5) /hpf Urine Bacteria Rare H (None) /hpf Urine Mucus Occasional H (None) /hpf 03/22/21 03/23/21 03/23/21 Range/Units 20:11 06:33 12:29 WBC (3.8-10.6) k/uL RBC (4.30-5.90) m/uL MCV (80.0-100.0) fL Plt Count (150-450) k/uL Neutrophils # (1.3-7.7) k/uL Chloride 95 L (98-107) mmol/L Carbon Dioxide 35 H (22-30) mmol/L BUN 86 H (9-20) mg/dL Creatinine 3.86 H (0.66-1.25) mg/dL POC Glucose (mg/dL) 183 H 387 H (75-99) mg/dL Urine Protein (Negative) Urine Blood (Negative) Ur Leukocyte Esterase (Negative) Urine RBC (0-5) /hpf Urine Bacteria (None) /hpf Urine Mucus (None) /hpf Assessment and Plan Assessment: Bilateral lower extremity swelling along with scrotal swelling/volume overload. Acute on chronic kidney disease stage III due to cardiorenal syndrome Elevated troponin level. Likely due to acute on chronic kidney disease.. Hypertension Diabetes type 2Insulin-dependent. Coronary artery disease status post stent placement and CABG history. Morbid obesity with a BMI 51.4. Hypomagnesemia. Replaced. DVT prophylaxis with heparin subcu Plan: Patient was given IV Lasix in the ER.Continued with IV Lasix 60 mg twice daily and monitor blood pressure and renal function closely. Duplex scan is negative for DVT. IV Lasix changed to Lasix drip And added metolazone. Patient was started on heparin drip due to elevated troponin level. Unlikely ACS. Discontinued now. Continue with aspirin, statins and Plavix. Start back on home insulin regimen and sliding scale. Continue to follow closely. Cardiology and nephrology is on board. Prognosis guarded with multiple medical problems and comorbid conditions. Time with Patient: Greater than 30
[2021-03-24] MEDS: FUROSEMIDE 100 MG in SODIUM CHLORIDE 0.9% 90 ML IV SCH (06:15)
[2021-03-24] MEDS: PANTOPRAZOLE 40 MG TABLET PO SCH ×2 (06:15→17:16)
[2021-03-24 07:12] LABS: Glucose,Whole Blood 214 mg/dL (75-99)
[2021-03-24 10:42] LABS: Glucose,Whole Blood 167 mg/dL (75-99)
[2021-03-24] MEDS: INSULIN ASPART (NovoLOG) 100 UNIT/ML VIAL SQ SCH ×3 (11:19→17:16)
[2021-03-24] MEDS: MECLIZINE 25 MG TAB PO SCH ×3 (11:20→21:41)
[2021-03-24] MEDS: ISOSORBIDE MONONITRATE ER 60 MG TAB.ER.24H PO SCH (11:20)
[2021-03-24] MEDS: TAMSULOSIN 0.4 MG CAP.ER.24H PO SCH (11:20)
[2021-03-24] MEDS: CLOPIDOGREL 75 MG TAB PO SCH (11:20)
[2021-03-24] MEDS: metOLazone 5 MG TAB PO SCH (11:20)
[2021-03-24] MEDS: ASPIRIN 81 MG PO SCH (11:20)
[2021-03-24] MEDS: METOPROLOL TARTRATE 50 MG TAB PO SCH ×2 (11:21→21:41)
[2021-03-24] MEDS: NYSTATIN 100,000UNIT/GM CREAM 30 GM TUBE TOPICAL SCH ×2 (11:21→21:55)
[2021-03-24] MEDS: HYDROcodone/APAP 10-325MG 1 EACH TAB PO PRN ×2 (11:21→17:59)
[2021-03-24] MEDS: PREGABALIN 75 MG CAP PO SCH ×2 (11:21→21:41)
[2021-03-24 12:13] LABS: Glucose,Whole Blood 272 mg/dL (75-99)
[2021-03-24 12:14] LABS: HCT 42.5 % (39.0-53.0); HGB 13.7 gm/dL (13.0-17.5); MCH 32.4 pg (25.0-35.0); MCHC 32.4 g/dL (31.0-37.0); MCV 100.1 fL (80.0-100.0); Macrocytosis Slight; Mean Platelet Volume 10.2; Platelet Count 171 k/uL (150-450); RBC 4.24 m/uL (4.30-5.90); RDW 14.2 % (11.5-15.5); WBC 10.9 k/uL (3.8-10.6)
[2021-03-24 12:18] LABS: Albumin 3.3 g/dL (3.5-5.0); Calcium 8.8 mg/dL (8.4-10.2); Magnesium 1.7 mg/dL (1.6-2.3); Total Bilirubin 1.7 mg/dL (0.2-1.3); Total Protein 6.7 g/dL (6.3-8.2)
--- NOTE | 2021-03-24 14:21 | PN ---
PROGRESS NOTE Patient is seen for followup for acute kidney injury, mostly associated with volume overload and cardiorenal syndrome. The patient had been on Lasix drip which was decreased due to worsening renal function. He continues to have significant edema. Overall, his weight has decreased from 157.9 kg on initial admission to about 151.3 kg now. The patient remains with significant scrotal edema. He denies any significant shortness of breath. 24 hour urine output documented at 5.2 L. PHYSICAL EXAMINATION: On examination today, blood pressure was 186/89, heart rate 125 per minute. He is afebrile. Examination of the heart S1, S2. Examination of the lungs, bilateral breath sounds are heard. Decreased breath sounds at the bases. Abdomen is soft, morbidly obese. Examination of the lower extremities shows edema 3+ bilaterally with chronic skin changes with small wrinkling of the skin noted. Significant scrotal edema noted as well. FRUIT PEELER exam grossly intact. LAB: Shows on March 23 sodium 139, potassium 5.1, BUN 86, serum creatinine 3.86. ASSESSMENT: 1. Acute kidney injury, cardiorenal, currently being diuresed. Lasix has been decreased to about 5 mL an hour. Lisinopril was discontinued. Blood pressure is not low currently. Switch to IV push Lasix today. Continue with Zaroxolyn. Repeat labs in a.m. Continue off EMILY inhibitors. 2. Chronic kidney disease stage 3B. Baseline creatinine about 1.7 in August and September of 2020 secondary to diabetic kidney disease and nephrosclerosis. 3. Type 2 diabetes. 4. Volume overload, slowly improving. 5. Hypertension with chronic kidney disease stage 3B. 6. Proteinuria most likely secondary to diabetic kidney disease. 7. Acute systolic congestive heart failure, ejection fraction 45-50%. 8. Urine retention currently status post Weinberg catheter placement. PLAN: Switch Lasix to IV push. Continue with metolazone. Continue fluid restriction. Repeat labs in a.m. Continue off EMILY inhibitors. Avoid any other nephrotoxic medications. MMODL / IJN: [id number] /
[2021-03-24 14:44] LABS: C-ANCA <1:20 Titer (<1:20)
--- NOTE | 2021-03-24 14:49 | P.PN ---
Subjective This is a 51-year-old male with a past medical history significant for coronary artery disease with previous CABG and subsequent stenting, hypertension, hyperlipidemia, nicotine dependence, and morbid obesity. Patient follows in the office with Dr. Mallory. We have been asked to see the patient in consultation for CHF. Patient presents to the emergency department on 03/17/21. Patient stated he was taken off his lasix 6-8 weeks ago due to worsening kidney function. He presents with complaints of weight gain of about 30-40 lbs since that time. He reports increased lower extremity edema. DIAGNOSTICS: Echocardiogram revealed EF of 4550 percent, severe concentric left ventricular hypertrophy. Cardiac catheterization history: August 2018 feeling patent OMALLEY to LAD, pain and SVG to diagonal, patent SVG to RCA. Severe disease involving the first obtuse marginal branch of left circumflex as well as the ramus intermedius area patient underwent stenting of the first obtuse marginal branch of the left circumflex. Medical management was recommended for ramus intermedius. 03/24/21: Patient seen in the bedside, no acute distress. He mostly complains of buttocks pain. His breathing has improved. Patient continues to have good urine output with 3.6 L in the past 24 hours. He does have lower extremity edema but impro ving. His Lasix drip was discontinued by nephrology and started on 40 mg of IV Lasix q8hr, continued on metolazone 5 mg once daily, low-salt diet and fluid restrictions. Telemetry reviewed patient sinus tachycardia, heart rates in the 120s, repeat EKG displayed revealed sinus tachycardia heart rate 126/ Labs reviewed, sodium 136, potassium 5.0, BUN 86, serum creatinine 3.19, magnesium 1.7. PHYSICAL EXAM: VITAL SIGNS: Reviewed. GENERAL: Well-developed in no acute distress. HEENT: Neck Supple No JVD. LUNGS: Respirations even and unlabored. Lungs diminished to auscultation bilaterally. HEART: Regular rate and rhythm. S1 and S2 heard. ABDOMEN: Soft. Nondistended. Nontender. EXTREMITIES: Normal range of motion. No clubbing or cyanosis. Peripheral pulses intact. 2+ bilateral lower extremity edema NEUROLOGIC: Awake and alert. Oriented x 3. ASSESSMENT: Acute on chronic diastolic heart failure Coronary artery disease with previous CABG and stenting Hypertension Hyperlipidemia Acute on chronic kidney disease Abnormal troponins, secondary to above, no evidence of acute coronary syndrome Morbid obesity Diabetes Sinus tachycardia PLAN: Continue IV lasix per nephrology I/Os, daily weights Monitor renal function and electrolytes Continue aspirin milligrams daily, atorvastatin 80 mg nightly, Plavix 75 mg daily Continue metoprolol titrate 150 mg BID Continue telemetry Further recommendations pending patient's course Nurse practitioner note has been reviewed by physician. Signing provider agrees with the documented findings, assessment, and plan of care. Objective - Vital Signs Vital signs: Vital Signs Temp 98.0 F 03/24/21 08:00 Pulse 125 H 03/24/21 08:00 Resp 19 03/24/21 08:00 BP 186/89 03/24/21 08:00 Pulse Ox 96 03/24/21 08:00 Intake & Output 03/23/21 03/24/21 03/24/21 18:59 06:59 18:59 Intake Total 357.75 342 Output Total 1275 2375 Balance -917.25 -2033 Weight 151.3 kg Intake: Intake, IV Titration 3.75 0 Amount Furosemide 100 mg In 3.75 0 Sodium Chloride 0.9% 90 ml @ 5 MG/HR 5 mls/hr IV .Q20H [facility] Rx#:[id number] Oral [id number] Output: Urine 1275 2375 Other: Voiding Method Indwelling Catheter Indwelling Catheter Indwelling Catheter # Voids 0 - Labs CBC & Chem 7: 03/24/21 11:34 03/24/21 11:34 Labs: Abnormal Lab Results - Last 24 Hours (Table) 03/23/21 03/23/21 03/24/21 Range/Units 16:53 19:54 07:09 WBC (3.8-10.6) k/uL RBC (4.30-5.90) m/uL MCV (80.0-100.0) fL Sodium (137-145) mmol/L Chloride (98-107) mmol/L Carbon Dioxide (22-30) mmol/L BUN (9-20) mg/dL Creatinine (0.66-1.25) mg/dL Glucose (74-99) mg/dL POC Glucose (mg/dL) 152 H 101 H 214 H (75-99) mg/dL Total Bilirubin (0.2-1.3) mg/dL Albumin (3.5-5.0) g/dL 03/24/21 03/24/21 03/24/21 Range/Units 10:40 11:34 11:34 WBC 10.9 H (3.8-10.6) k/uL RBC 4.24 L (4.30-5.90) m/uL MCV 100.1 H (80.0-100.0) fL Sodium 136 L (137-145) mmol/L Chloride 96 L (98-107) mmol/L Carbon Dioxide 31 H (22-30) mmol/L BUN 86 H (9-20) mg/dL Creatinine 3.19 H (0.66-1.25) mg/dL Glucose 228 H (74-99) mg/dL POC Glucose (mg/dL) 167 H (75-99) mg/dL Total Bilirubin 1.7 H (0.2-1.3) mg/dL Albumin 3.3 L (3.5-5.0) g/dL 03/24/21 Range/Units 12:11 WBC (3.8-10.6) k/uL RBC (4.30-5.90) m/uL MCV (80.0-100.0) fL Sodium (137-145) mmol/L Chloride (98-107) mmol/L Carbon Dioxide (22-30) mmol/L BUN (9-20) mg/dL Creatinine (0.66-1.25) mg/dL Glucose (74-99) mg/dL POC Glucose (mg/dL) 272 H (75-99) mg/dL Total Bilirubin (0.2-1.3) mg/dL Albumin (3.5-5.0) g/dL
[2021-03-24 14:53] LABS: Eosinophils # (M) 0.11 k/uL (0-0.7); Lymphocytes # (M) 1.09 k/uL (1.0-4.8); Monocytes # (M) 1.53 k/uL (0-1.0); Neutrophils # (M) 8.18 k/uL (1.3-7.7); Neutrophils % (M) 75 %; Nucleated Red Blood Cells 0 /100 WBC (0-0); Total Cells Counted 100
[2021-03-24] MEDS ORDERED: Magnesium Replacement Protocol 1 EACH MISC MISCELLANE PRN (15:38)
[2021-03-24 17:07] LABS: Glucose,Whole Blood 271 mg/dL (75-99)
[2021-03-24 20:22] LABS: Glucose,Whole Blood 334 mg/dL (75-99)
[2021-03-24] MEDS: FUROSEMIDE 10 MG/ML 4 ML VIAL IV SCH ×2 (21:08→23:31)
--- NOTE | 2021-03-24 21:37 | P.PN ---
Subjective Progress Note Date: 03/24/21 Patient is a 51-year-old male with a known history of coronary artery disease status post CABG, cardiac catheterization and stent placement, hypertension, hyperlipidemia, diabetes type 2 and chronic kidney disease past nephrolithiasis and chronic low back pain, morbid obesity with a BMI 51.4 presents to ER with complaints of worsening bilateral leg swelling and increased abdominal girth. Patient has been having worsening symptoms for the past few weeks. Patient is also complaining of swelling in the scrotal area. Denies any chest pain. Patient does have extensive cardiac history with previous history of CABG and 7 stents placement. Denies any fever or chills. No cough or sputum production. No nausea vomiting or abdominal pain or diarrhea. Chest x-ray showed no acute cardiopulmonary process Venous duplex showed suboptimal study without convincing evidence of acute DVT on either lower extremity. EKG showed sinus tachycardia. Poor data quality. Laboratory data showed WBC 8.9 hemoglobin 15.5 and platelets 175 BUN 31 creatinine 2.04, magnesium 1.5, troponin 0 0.074, 0.082 and 0.075, proBNP 677 Albumin 2.9, free T4 0.78 03/19/2021 Patient is currently sitting in the chair. Still having bilateral lower acuity swelling and scrotal edema. Patient was continued on IV Lasix. Change to Lasix drip. Denied any complaints of chest pain or shortness breath. No fever no chills. No cough or sputum production. No nausea vomiting abdominal pain or diarrhea. Laboratory data showed sodium 136 potassium 4.6 chloride 103 BUN 39 and creatinine 2.26 and blood sugar is 268 and magnesium 1.4 Hepatitis panel and complement within normal limits. Nephrology and cardiology is on board. Abdominal ultrasound showed no hydronephrosis. 2D echocardiogram showed overall left ventricular systolic function is mildly impaired ejection fraction 45 to 50%. Right ventricle is moderately enlarged. 03/20/2021 Patient is currently sitting in a chair. Awake alert 1x3. Still having bilateral lower extremity minor scrotal swelling. Complains of back pain as well. Otherwise laboratory data showed sodium 138 potassium 4.3 bicarb is 33 BUN 47 and creatinine 2.26 Patient is being current on Lasix drip. Patient denied any complaints of nausea vomiting abdominal pain or diarrhea. Diuresing well. Weinberg catheter is in place. Patient has been afebrile. No cough or sputum production. Nephrology is on board. 03/21/2021 Patient is currently lying in the bed. Awake alert oriented 3. Still having bilateral lower activity swelling and significant scrotal swelling. Patient is diuresing well. Blood pressure is stable. Denied any compressive dizziness or lightheadedness. Patient does feel weak. No nausea vomiting or abdominal pain or diarrhea. Nephrology and cardiology on board. Patient is being continued on Lasix drip. Laboratory data showed BUN 55 and creatinine 2.75. 03/22/2021 Patient is currently sitting in the chair. Feels very weak. Denies any complaints of chest pain or worsening shortness breath. Patient is diuresing well with Lasix drip. Patient is also on metolazone. Bilateral lower extremity swelling is improving. Still having significant scrotal swelling. Weinberg catheter is in place. No complaints of nausea vomiting or diarrhea. Denies any headache or dizziness or lightheadedness. Blood sugar is down to 70s and insulin dose was reduced. Laboratory showed BUN 77 creatinine 3.59, WBC 11.3 hemoglobin 13.8 and platelets 142 Urinalysis showed large blood and elevated RBCs. No infection. Nephrology and cardiology is on board. 03/23/2021 Patient was admitted to the hospital due to volume overload. Patient is currently sitting in the chair. Feels better today. No complaints of chest pain or worsening shortness of breath. Bilateral lower extremity swe lling is improving. Still having scrotal swelling. Remains on IV Lasix drip and also on metolazone. Patient has good urine output with 5.2 L in the past 24 hours.. Next No nausea vomiting or diarrhea. Able to tolerate oral diet. Insulin dose was reduced due to hypoglycemic episodes. Laboratory showed BUN 86 and creatinine 3.86. Cardiology nephrology is on board. 03/24/2021 Patient is evaluated today sitting in the chair, transitioned from IV Lasix drip to IV Lasix. States that the edema is improving his lower extremities, scrotum is quite edematous still. He does have some weeping to his left lower extremity. Patient complains of some excoriation to his buttock, and in his groin. He states his breathing is much improved. Continues with the Weinberg catheter, -3600 mL's in the last 24 hours. Labs today show a white count 10.9, sodium 136, potassium 5, chloride 96, bicarb 31, BUN 36 and creatinine 3.19, mag is 1.7. Vital signs today show a heart rate of 125, blood pressure 186/89 and he is 96% on room air. He is afebrile. Current medications reviewed. ROS Constitutional: Denied any fatigue denied any fever. Cardio vascular: denied any chest pain, palpitations Gastrointestinal denied any nausea vomiting Pulmonary: Denied any shortness of breath cough Neurologic denied any new focal deficits All inpatient medications were reviewed and appropriate changes in these m edications as dictated in the interval history and assessment and plan. PHYSICAL EXAMINATION: GENERAL: The patient is alert and oriented x3, not in any acute distress. Well developed, well nourished. HEENT: Pupils are round and equally reacting to light. EOMI. No scleral icterus. No conjunctival pallor. Normocephalic, atraumatic. No pharyngeal erythema. No thyromegaly. CARDIOVASCULAR: S1 and S2 present. No murmurs, rubs, or gallops. PULMONARY: Chest is clear to auscultation, no wheezing or crackles. ABDOMEN: Soft, nontender, large, obese, normoactive bowel sounds. No palpable organomegaly. MUSCULOSKELETAL: No joint swelling or deformity. EXTREMITIES: No cyanosis, clubbing, +2 nonpitting bilateral lower extremity edema, scrotal edema NEUROLOGICAL: Gross neurological examination did not reveal any focal deficits. SKIN: Maceration and weeping to left rees and right rees, excoriation to groin and buttock Assessment and plan Bilateral lower extremity swelling along with scrotal swelling/volume overload. Acute on chronic kidney disease stage III due to cardiorenal syndrome baseline creatinine 1.7, currently 3.19 Congestive heart failure, with acute exacerbation, systolic and diastolic, current EF 45-50% Hypertension Hyperlipidemia Coronary artery disease status post stent placement and CABG Elevated troponin level. Likely due to acute on chronic kidney disease. Diabetes type 2 Insulin-dependent. Urinary retention s/p placement of indwelling catheter Intertrigo Morbid obesity with a BMI 49.3 Hypomagnesemia. Replaced. DVT prophylaxis with heparin subcu Plan: Continue on IVP lasix and metalazone Continue strict I&O, 1500 CC fluid restriction, daily weights Zinc barrier paste to buttock, nystatin cream to groin Continue with aspirin, statins and Plavix. Continue with IDC, and flomax Continue on home dose of novolog and levemir Repeat labs in the morning. Objective - Vital Signs Vital signs: Vital Signs Temp 98.6 F 03/24/21 03:54 Pulse 90 03/24/21 03:54 Resp 22 03/24/21 03:54 BP 159/88 03/24/21 03:54 Pulse Ox 92 L 03/24/21 03:54 Intake & Output 03/23/21 03/24/21 03/24/21 18:59 06:59 18:59 Intake Total 357.75 342 Output Total 1275 2375 Balance -917 -2032 Weight 151.3 kg Intake: Intake, IV Titration 3.75 0 Amount Furosemide 100 mg In 3.75 0 Sodium Chloride 0.9% 90 ml @ 5 MG/HR 5 mls/hr IV .Q20H [facility] Rx#:[id number] Oral 354 342 Output: Urine 1275 2375 Other: Voiding Method Indwelling Catheter Indwelling Catheter - Labs CBC & Chem 7: 03/24/21 11:34 03/24/21 11:34 Labs: Abnormal Lab Results - Last 24 Hours (Table) 03/23/21 03/23/21 03/23/21 Range/Units 12:29 16:53 19:54 Chloride 95 L (98-107) mmol/L Carbon Dioxide 35 H (22-30) mmol/L BUN 86 H (9-20) mg/dL Creatinine 3.86 H (0.66-1.25) mg/dL POC Glucose (mg/dL) 152 H 101 H (75-99) mg/dL 03/24/21 Range/Units 07:09 Chloride (98-107) mmol/L Carbon Dioxide (22-30) mmol/L BUN (9-20) mg/dL Creatinine (0.66-1.25) mg/dL POC Glucose (mg/dL) 214 H (75-99) mg/dL Assessment and Plan Time with Patient: Greater than 30
[2021-03-24] MEDS: ATORVASTATIN 80 MG TAB PO SCH (21:41)
[2021-03-24] MEDS: INSULIN DETEMIR (LEVEMIR) 100 UNIT/ML SYR SQ SCH (21:41)
[2021-03-24] MEDS: MONTELUKAST 10 MG TAB PO SCH (21:41)
[2021-03-24] MEDS: SERTRALINE 50 MG TAB PO SCH (21:42)
[2021-03-24] MEDS: MAGNESIUM SULFATE-D5W PMX 1 GM in DEXTROSE/WATER 1 100ML.BAG IVPB SCH ×2 (21:50→23:32)
[2021-03-25] MEDS: PANTOPRAZOLE 40 MG TABLET PO SCH ×2 (06:27→17:41)
[2021-03-25] MEDS: HYDROcodone/APAP 10-325MG 1 EACH TAB PO PRN ×2 (06:27→17:41)
[2021-03-25 07:56] LABS: Calcium 8.3 mg/dL (8.4-10.2); Magnesium 2.3 mg/dL (1.6-2.3); Potassium 4.9 mmol/L (3.5-5.1)
[2021-03-25 08:02] LABS: HCT 36.8 % (39.0-53.0); HGB 12.1 gm/dL (13.0-17.5); MCH 32.6 pg (25.0-35.0); MCV 98.9 fL (80.0-100.0); Macrocytosis Slight; Mean Platelet Volume 9.9; Platelet Count 180 k/uL (150-450); Poikilocytosis Slight; RBC 3.72 m/uL (4.30-5.90); WBC 9.4 k/uL (3.8-10.6)
[2021-03-25] MEDS: PREGABALIN 75 MG CAP PO SCH ×2 (08:17→20:29)
[2021-03-25] MEDS: FUROSEMIDE 10 MG/ML 4 ML VIAL IV SCH ×2 (08:17→20:30)
[2021-03-25] MEDS: metOLazone 5 MG TAB PO SCH (08:17)
[2021-03-25] MEDS: ASPIRIN 81 MG PO SCH (08:17)
[2021-03-25] MEDS: NYSTATIN 100,000UNIT/GM CREAM 30 GM TUBE TOPICAL SCH ×2 (08:18→20:29)
[2021-03-25] MEDS: INSULIN ASPART (NovoLOG) 100 UNIT/ML VIAL SQ SCH ×3 (08:18→17:41)
[2021-03-25] MEDS: CLOPIDOGREL 75 MG TAB PO SCH (08:18)
[2021-03-25] MEDS: MECLIZINE 25 MG TAB PO SCH ×3 (08:18→20:29)
[2021-03-25] MEDS: TAMSULOSIN 0.4 MG CAP.ER.24H PO SCH (08:18)
[2021-03-25] MEDS: METOPROLOL TARTRATE 50 MG TAB PO SCH ×2 (08:18→20:29)
[2021-03-25 11:58] LABS: Glucose,Whole Blood 124 mg/dL (75-99)
[2021-03-25 12:07] LABS: Eosinophils # (M) 0.09 k/uL (0-0.7); Lymphocytes # (M) 1.32 k/uL (1.0-4.8); Monocytes # (M) 1.32 k/uL (0-1.0); Neutrophils # (M) 6.67 k/uL (1.3-7.7); Neutrophils % (M) 71 %; Nucleated Red Blood Cells 0 /100 WBC (0-0); Total Cells Counted 100
[2021-03-25 13:13] LABS: Albumin 3.02 g/dL (3.80-4.90); Gamma Globulin 0.73 g/dL (0.70-1.50)
--- NOTE | 2021-03-25 13:20 | P.PN ---
Subjective This is a 51-year-old male with a past medical history significant for coronary artery disease with previous CABG and subsequent stenting, hypertension, hyperlipidemia, nicotine dependence, and morbid obesity. Patient follows in the office with Dr. Mallory. We have been asked to see the patient in consultation for CHF. Patient presents to the emergency department on 03/17/21. Patient stated he was taken off his lasix 6-8 weeks ago due to worsening kidney function. He presents with complaints of weight gain of about 30-40 lbs since that time. He reports increased lower extremity edema. DIAGNOSTICS: Echocardiogram revealed EF of 4550 percent, severe concentric left ventricular hypertrophy. Cardiac catheterization history: August 2018 feeling patent OMALLEY to LAD, pain and SVG to diagonal, patent SVG to RCA. Severe disease involving the first obtuse marginal branch of left circumflex as well as the ramus intermedius area patient underwent stenting of the first obtuse marginal branch of the left circumflex. Medical management was recommended for ramus intermedius. 03/25/21 Patient seen in the bedside, no acute distress. He mostly complains of buttocks pain. His breathing has improved. Patient continues to have good urine output with 3645mL over the past 24 hours.His lower extremity edema has improved. His Lasix drip was discontinued by nephrology and decreased his IV Lasix to 40mg BID, metolazone 5 mg once daily, low-salt diet and fluid restrictions. Telemetry reviewed patient sinus tachycardia, heart rates have improved to low 100s, repeat EKG yesterday displayed revealed sinus tachycardia no irregular rhythm noted. Labs reviewed, sodium 135, potassium 4.9, BUN 91, serum creatinine 3.5, magne sium 2.3 PHYSICAL EXAM: VITAL SIGNS: Reviewed. GENERAL: Well-developed in no acute distress. HEENT: Neck Supple No JVD. LUNGS: Respirations even and unlabored. Lungs diminished to auscultation bilaterally. HEART: Regular rate and rhythm. S1 and S2 heard. ABDOMEN: Soft. Nondistended. Nontender. EXTREMITIES: Normal range of motion. No clubbing or cyanosis. Peripheral pulses intact. mild bilateral lower extremity edema NEUROLOGIC: Awake and alert. Oriented x 3. ASSESSMENT: Acute on chronic diastolic heart failure Coronary artery disease with previous CABG and stenting Hypertension Hyperlipidemia Acute on chronic kidney disease Abnormal troponins, secondary to above, no evidence of acute coronary syndrome Morbid obesity Diabetes Sinus tachycardia PLAN: Continue IV lasix per nephrology, decreased today to IV 40mg BID I/Os, daily weights Monitor renal function and electrolytes Continue aspirin milligrams daily, atorvastatin 80 mg nightly, Plavix 75 mg daily Continue metoprolol titrate 150 mg BID Continue telemetry Further recommendations pending patient's course Nurse practitioner note has been reviewed by physician. Signing provider agrees with the documented findings, assessment, and plan of care. Objective - Vital Signs Vital signs: Vital Signs Temp 97.4 F L 03/25/21 12:20 Pulse 106 H 03/25/21 12:20 Resp 20 03/25/21 12:20 BP 124/87 03/25/21 12:20 Pulse Ox 96 03/25/21 12:20 Intake & Output 03/24/21 03/25/21 03/25/21 18:59 06:59 18:59 Intake Total 240 444 Output Total 2300 1345 Balance -2060 -901 Weight 147.1 kg Intake: Oral 240 444 Output: Urine 2300 1345 Uretheral (Weinberg) 2300 Other: Voiding Method Indwelling Catheter Indwelling Catheter Indwelling Catheter # Voids 0 # Bowel Movements 5 - Labs CBC & Chem 7: 03/25/21 07:01 03/25/21 07:00 Labs: Abnormal Lab Results - Last 24 Hours (Table) 03/19/21 03/24/21 03/24/21 Range/Units 07:20 11:34 11:34 RBC (4.30-5.90) m/uL Hgb (13.0-17.5) gm/dL Hct (39.0-53.0) % Neutrophils # (Manual) 8.18 H (1.3-7.7) k/uL Monocytes # (Manual) 1.53 H (0-1.0) k/uL Sodium (137-145) mmol/L Chloride (98-107) mmol/L Carbon Dioxide (22-30) mmol/L BUN (9-20) mg/dL Creatinine (0.66-1.25) mg/dL Glucose (74-99) mg/dL POC Glucose (mg/dL) (75-99) mg/dL Hemoglobin A1c 7.0 H (4.0-6.0) % Calcium (8.4-10.2) mg/dL Albumin (PEP) 3.02 L (3.80-4.90) g/dL 03/24/21 03/24/21 03/25/21 Range/Units 16:47 20:21 07:00 RBC (4.30-5.90) m/uL Hgb (13.0-17.5) gm/dL Hct (39.0-53.0) % Neutrophils # (Manual) (1.3-7.7) k/uL Monocytes # (Manual) (0-1.0) k/uL Sodium 135 L (137-145) mmol/L Chloride 95 L (98-107) mmol/L Carbon Dioxide 33 H (22-30) mmol/L BUN 91 H (9-20) mg/dL Creatinine 3.54 H (0.66-1.25) mg/dL Glucose 275 H (74-99) mg/dL POC Glucose (mg/dL) 271 H 334 H (75-99) mg/dL Hemoglobin A1c (4.0-6.0) % Calcium 8.3 L (8.4-10.2) mg/dL Albumin (PEP) (3.80-4.90) g/dL 03/25/21 03/25/21 Range/Units 07:01 11:54 RBC 3.72 L (4.30-5.90) m/uL Hgb 12.1 L (13.0-17.5) gm/dL Hct 36.8 L (39.0-53.0) % Neutrophils # (Manual) (1.3-7.7) k/uL Monocytes # (Manual) 1.32 H (0-1.0) k/uL Sodium (137-145) mmol/L Chloride (98-107) mmol/L Carbon Dioxide (22-30) mmol/L BUN (9-20) mg/dL Creatinine (0.66-1.25) mg/dL Glucose (74-99) mg/dL POC Glucose (mg/dL) 124 H (75-99) mg/dL Hemoglobin A1c (4.0-6.0) % Calcium (8.4-10.2) mg/dL Albumin (PEP) (3.80-4.90) g/dL
--- NOTE | 2021-03-25 14:30 | PN ---
PROGRESS NOTE Patient is seen for followup for acute kidney injury. He has significant volume overload and is currently being diuresed. The patient was maintained on Lasix drip which was eventually discontinued yesterday and switched over to IV push Lasix. Serum creatinine had peaked at about 3.8 mg/dL and decreased to about 3.1 yesterday, but back up to 3.5 today. Patient has an indwelling Weinberg catheter. His weight is down to 147 kg from 151 yesterday. 24 hour urine output is at about 3.6 L. No significant complaints today. PHYSICAL EXAMINATION: Blood pressure 124/87, heart rate 106 per minute. She is afebrile. Examination of the heart S1, S2. Examination of the lungs, bilateral breath sounds are heard. Abdomen is soft, nontender. Examination of lower extremities shows edema 2 to 3+ bilaterally with significant scrotal edema as well. [employer] exam grossly intact. LAB: Show sodium 135, potassium 4.9, chloride 95, CO2 33, BUN 91, creatinine 3.5, hemoglobin 12.1. ASSESSMENT: 1. Acute kidney injury associated with recent diuresis. No nephrotoxic agents on board. Blood pressure is not significantly low. I will continue with the IV Lasix and decrease to twice a day from tomorrow. Continue with the Zaroxolyn as well for now as patient remains significantly volume overloaded. His weight is down significantly. 2. Severe volume overload slowly improving. 3. Chronic kidney disease stage 3B. Previous creatinine 1.7 in August and September of 2020 secondary to diabetic kidney disease and nephrosclerosis. 4. Type 2 diabetes. 5. Hypertension with CKD stage 3B. 6. Proteinuria, mostly associated with diabetic kidney disease. 7. Acute systolic congestive heart failure, ejection fraction 45-50%. 8. Urine retention status post Weinberg catheter placement. PLAN: Decrease Lasix to 40 mg IV q.12 hours and repeat labs in a.m. MMODL / IJN: [id number] /
--- NOTE | 2021-03-25 15:41 | P.PN ---
Subjective Progress Note Date: 03/25/21 Patient is a 51-year-old male with a known history of coronary artery disease status post CABG, cardiac catheterization and stent placement, hypertension, hyperlipidemia, diabetes type 2 and chronic kidney disease past nephrolithiasis and chronic low back pain, morbid obesity with a BMI 51.4 presents to ER with complaints of worsening bilateral leg swelling and increased abdominal girth. Patient has been having worsening symptoms for the past few weeks. Patient is also complaining of swelling in the scrotal area. Denies any chest pain. Patient does have extensive cardiac history with previous history of CABG and 7 stents placement. Denies any fever or chills. No cough or sputum production. No nausea vomiting or abdominal pain or diarrhea. Chest x-ray showed no acute cardiopulmonary process Venous duplex showed suboptimal study without convincing evidence of acute DVT on either lower extremity. EKG showed sinus tachycardia. Poor data quality. Laboratory data showed WBC 8.9 hemoglobin 15.5 and platelets 175 BUN 31 creatinine 2.04, magnesium 1.5, troponin 0 0.074, 0.082 and 0.075, proBNP 677 Albumin 2.9, free T4 0.78 03/19/2021 Patient is currently sitting in the chair. Still having bilateral lower acuity swelling and scrotal edema. Patient was continued on IV Lasix. Change to Lasix drip. Denied any complaints of chest pain or shortness breath. No fever no chills. No cough or sputum production. No nausea vomiting abdominal pain or diarrhea. Laboratory data showed sodium 136 potassium 4.6 chloride 103 BUN 39 and creatinine 2.26 and blood sugar is 268 and magnesium 1.4 Hepatitis panel and complement within normal limits. Nephrology and cardiology is on board. Abdominal ultrasound showed no hydronephrosis. 2D echocardiogram showed overall left ventricular systolic function is mildly impaired ejection fraction 45 to 50%. Right ventricle is moderately enlarged. 03/20/2021 Patient is currently sitting in a chair. Awake alert 1x3. Still having bilateral lower extremity minor scrotal swelling. Complains of back pain as well. Otherwise laboratory data showed sodium 138 potassium 4.3 bicarb is 33 BUN 47 and creatinine 2.26 Patient is being current on Lasix drip. Patient denied any complaints of nausea vomiting abdominal pain or diarrhea. Diuresing well. Weinberg catheter is in place. Patient has been afebrile. No cough or sputum production. Nephrology is on board. 03/21/2021 Patient is currently lying in the bed. Awake alert oriented 3. Still having bilateral lower activity swelling and significant scrotal swelling. Patient is diuresing well. Blood pressure is stable. Denied any compressive dizziness or lightheadedness. Patient does feel weak. No nausea vomiting or abdominal pain or diarrhea. Nephrology and cardiology on board. Patient is being continued on Lasix drip. Laboratory data showed BUN 55 and creatinine 2.75. 03/22/2021 Patient is currently sitting in the chair. Feels very weak. Denies any complaints of chest pain or worsening shortness breath. Patient is diuresing well with Lasix drip. Patient is also on metolazone. Bilateral lower extremity swelling is improving. Still having significant scrotal swelling. Weinberg catheter is in place. No complaints of nausea vomiting or diarrhea. Denies any headache or dizziness or lightheadedness. Blood sugar is down to 70s and insulin dose was reduced. Laboratory showed BUN 77 creatinine 3.59, WBC 11.3 hemoglobin 13.8 and platelets 142 Urinalysis showed large blood and elevated RBCs. No infection. Nephrology and cardiology is on board. 03/23/2021 Patient was admitted to the hospital due to volume overload. Patient is currently sitting in the chair. Feels better today. No complaints of chest pain or worsening shortness of breath. Bilateral lower extremity swe lling is improving. Still having scrotal swelling. Remains on IV Lasix drip and also on metolazone. Patient has good urine output with 5.2 L in the past 24 hours.. Next No nausea vomiting or diarrhea. Able to tolerate oral diet. Insulin dose was reduced due to hypoglycemic episodes. Laboratory showed BUN 86 and creatinine 3.86. Cardiology nephrology is on board. 03/24/2021 Patient is evaluated today sitting in the chair, transitioned from IV Lasix drip to IV Lasix. States that the edema is improving his lower extremities, scrotum is quite edematous still. He does have some weeping to his left lower extremity. Patient complains of some excoriation to his buttock, and in his groin. He states his breathing is much improved. Continues with the Weinberg catheter, -3600 mL's in the last 24 hours. Labs today show a white count 10.9, sodium 136, potassium 5, chloride 96, bicarb 31, BUN 36 and creatinine 3.19, mag is 1.7. Vital signs today show a heart rate of 125, blood pressure 186/89 and he is 96% on room air. He is afebrile. 03/25/2021 Patient evaluated today sitting in a chair. He is on IV Lasix 40 mg Q12h. labs today show a creatinine of 3.54, BUN 51, sodium 135, chloride 95, bicarb 33, calcium 8.3. His hemoglobin is 12.1. Vital show a temp of 97.4, he is tachycardic 106, blood pressure 124/87 is 96% on room air. Continues to have +2 lower extremity pitting edema, and scrotal edema. Patient is still complaining of some excoriation in his buttock, discussed with nursing staff to utilize barrier cream and nystatin BID, and cleanse daily. Current medications reviewed. ROS Constitutional: Denied any fatigue denied any fever. Cardio vascular: denied any chest pain, palpitations Gastrointestinal denied any nausea vomiting Pulmonary: Denied any shortness of breath cough Neurologic denied any new focal deficits All inpatient medications were reviewed and appropriate changes in these medications as dictated in the interval history and assessment and plan. PHYSICAL EXAMINATION: GENERAL: The patient is alert and oriented x3, not in any acute distress. Well developed, well nourished. HEENT: Pupils are round and equally reacting to light. EOMI. No scleral icterus. No conjunctival pallor. Normocephalic, atraumatic. No pharyngeal erythema. No thyromegaly. CARDIOVASCULAR: S1 and S2 present. No murmurs, rubs, or gallops. PULMONARY: Chest is clear to auscultation, no wheezing or crackles. ABDOMEN: Soft, nontender, large, obese, normoactive bowel sounds. No palpable organomegaly. MUSCULOSKELETAL: No joint swelling or deformity. EXTREMITIES: No cyanosis, clubbing, +2 nonpitting bilateral lower extremity edema, scrotal edema NEUROLOGICAL: Gross neurological examination did not reveal any focal deficits. SKIN: Maceration and weeping to left rees and right rees, excoriation to groin and buttock Assessment and plan Bilateral lower extremity swelling along with scrotal swelling/volume overload. Acute on chronic kidney disease stage III due to cardiorenal syndrome baseline creatinine 1.7, currently 3.59 Congestive heart failure, with acute exacerbation, systolic and diastolic, current EF 45-50% Hypertension Hyperlipidemia Coronary artery disease status post stent placement and CABG Elevated troponin level. Likely due to acute on chronic kidney disease. Diabetes type 2 Insulin-dependent. Urinary retention s/p placement of indwelling catheter Intertrigo Morbid obesity with a BMI 49.3 Hypomagnesemia. Replaced. DVT prophylaxis with heparin subcu Plan: Elevate lower extremities when sitting in bed, elevate scrotum with a sling if patient can tolerate. Continue on IVP lasix and metalazone Continue strict I&O, 1500 CC fluid restriction, daily weights Zinc barrier paste to buttock, nystatin cream to groin Continue with aspirin, statins and Plavix. Continue with IDC, and flomax Continue on home dose of novolog and levemir Repeat labs in the morning. Objective - Vital Signs Vital signs: Vital Signs Temp 97.9 F 03/25/21 04:00 Pulse 73 03/25/21 04:00 Resp 19 03/25/21 04:00 BP 114/66 03/25/21 04:00 Pulse Ox 96 03/25/21 04:00 Intake & Output 03/24/21 03/25/21 03/25/21 18:59 06:59 18:59 Intake Total 240 444 Output Total 2300 1345 Balance -2059 - Weight 147.1 kg Intake: Oral 240 444 Output: Urine 2300 1345 Uretheral (Weinberg) 2300 Other: Voiding Method Indwelling Catheter Indwelling Catheter # Voids 0 # Bowel Movements 5 - Labs CBC & Chem 7: 03/25/21 07:01 03/25/21 07:00 Labs: Abnormal Lab Results - Last 24 Hours (Table) 03/24/21 03/24/21 03/24/21 Range/Units 11:34 11:34 11:34 WBC 10.9 H (3.8-10.6) k/uL RBC 4.24 L (4.30-5.90) m/uL Hgb (13.0-17.5) gm/dL Hct (39.0-53.0) % MCV 100.1 H (80.0-100.0) fL Neutrophils # (Manual) 8.18 H (1.3-7.7) k/uL Monocytes # (Manual) 1.53 H (0-1.0) k/uL Sodium 136 L (137-145) mmol/L Chloride 96 L (98-107) mmol/L Carbon Dioxide 31 H (22-30) mmol/L BUN 86 H (9-20) mg/dL Creatinine 3.19 H (0.66-1.25) mg/dL Glucose 228 H (74-99) mg/dL POC Glucose (mg/dL) (75-99) mg/dL Hemoglobin A1c 7.0 H (4.0-6.0) % Calcium (8.4-10.2) mg/dL Total Bilirubin 1.7 H (0.2-1.3) mg/dL Albumin 3.3 L (3.5-5.0) g/dL 03/24/21 03/24/21 03/24/21 Range/Units 12:11 16:47 20:21 WBC (3.8-10.6) k/uL RBC (4.30-5.90) m/uL Hgb (13.0-17.5) gm/dL Hct (39.0-53.0) % MCV (80.0-100.0) fL Neutrophils # (Manual) (1.3-7.7) k/uL Monocytes # (Manual) (0-1.0) k/uL Sodium (137-145) mmol/L Chloride (98-107) mmol/L Carbon Dioxide (22-30) mmol/L BUN (9-20) mg/dL Creatinine (0.66-1.25) mg/dL Glucose (74-99) mg/dL POC Glucose (mg/dL) 272 H 271 H 334 H (75-99) mg/dL Hemoglobin A1c (4.0-6.0) % Calcium (8.4-10.2) mg/dL Total Bilirubin (0.2-1.3) mg/dL Albumin (3.5-5.0) g/dL 03/25/21 03/25/21 Range/Units 07:00 07:01 WBC (3.8-10.6) k/uL RBC 3.72 L (4.30-5.90) m/uL Hgb 12.1 L (13.0-17.5) gm/dL Hct 36.8 L (39.0-53.0) % MCV (80.0-100.0) fL Neutrophils # (Manual) (1.3-7.7) k/uL Monocytes # (Manual) (0-1.0) k/uL Sodium 135 L (137-145) mmol/L Chloride 95 L (98-107) mmol/L Carbon Dioxide 33 H (22-30) mmol/L BUN 91 H (9-20) mg/dL Creatinine 3.54 H (0.66-1.25) mg/dL Glucose 275 H (74-99) mg/dL POC Glucose (mg/dL) (75-99) mg/dL Hemoglobin A1c (4.0-6.0) % Calcium 8.3 L (8.4-10.2) mg/dL Total Bilirubin (0.2-1.3) mg/dL Albumin (3.5-5.0) g/dL Assessment and Plan Time with Patient: Greater than 30
[2021-03-25 17:17] LABS: Glucose,Whole Blood 79 mg/dL (75-99)
[2021-03-25 19:44] LABS: Glucose,Whole Blood 79 mg/dL (75-99)
[2021-03-25] MEDS: MONTELUKAST 10 MG TAB PO SCH (20:29)
[2021-03-25] MEDS: ATORVASTATIN 80 MG TAB PO SCH (20:29)
[2021-03-25] MEDS: SERTRALINE 50 MG TAB PO SCH (20:30)
[2021-03-25] MEDS: INSULIN DETEMIR (LEVEMIR) 100 UNIT/ML SYR SQ SCH (21:02)
[2021-03-26] MEDS: HYDROcodone/APAP 10-325MG 1 EACH TAB PO PRN ×4 (00:01→20:17)
[2021-03-26] MEDS: PANTOPRAZOLE 40 MG TABLET PO SCH ×2 (06:40→16:56)
[2021-03-26] MEDS: INSULIN ASPART (NovoLOG) 100 UNIT/ML VIAL SQ SCH ×3 (07:45→16:55)
[2021-03-26] MEDS: TAMSULOSIN 0.4 MG CAP.ER.24H PO SCH (08:47)
[2021-03-26] MEDS: metOLazone 5 MG TAB PO SCH (08:48)
[2021-03-26] MEDS: METOPROLOL TARTRATE 50 MG TAB PO SCH ×3 (08:48→20:19)
[2021-03-26] MEDS: PREGABALIN 75 MG CAP PO SCH ×2 (08:48→20:16)
[2021-03-26] MEDS: FUROSEMIDE 10 MG/ML 4 ML VIAL IV SCH (08:48)
[2021-03-26] MEDS: MECLIZINE 25 MG TAB PO SCH ×3 (08:48→20:17)
[2021-03-26] MEDS: ASPIRIN 81 MG PO SCH (08:48)
[2021-03-26] MEDS: NYSTATIN 100,000UNIT/GM CREAM 30 GM TUBE TOPICAL SCH ×2 (08:48→21:07)
[2021-03-26] MEDS: CLOPIDOGREL 75 MG TAB PO SCH (08:48)
[2021-03-26 10:23] LABS: Calcium 8.6 mg/dL (8.4-10.2); Potassium 4.5 mmol/L (3.5-5.1)
[2021-03-26 11:43] LABS: Glucose,Whole Blood 145 mg/dL (75-99)
--- NOTE | 2021-03-26 11:44 | P.PN ---
Subjective This is a 51-year-old male with a past medical history significant for coronary artery disease with previous CABG and subsequent stenting, hypertension, hyperlipidemia, nicotine dependence, and morbid obesity. Patient follows in the office with Dr. Mallory. We have been asked to see the patient in consultation for CHF. Patient presents to the emergency department on 03/17/21. Patient stated he was taken off his lasix 6-8 weeks ago due to worsening kidney function. He presents with complaints of weight gain of about 30-40 lbs since that time. He reports increased lower extremity edema. DIAGNOSTICS: Echocardiogram revealed EF of 4550 percent, severe concentric left ventricular hypertrophy. Cardiac catheterization history: August 2018 feeling patent OMALLEY to LAD, pain and SVG to diagonal, patent SVG to RCA. Severe disease involving the first obtuse marginal branch of left circumflex as well as the ramus intermedius area patient underwent stenting of the first obtuse marginal branch of the left circumflex. Medical management was recommended for ramus intermedius. 03/25/21 Patient seen in the bedside, he appears lethargic, able to awake with verbal stimuli but falls back to sleep during exam. Patient with history of YOEL unclear if compliant with BiPAP/CPAP at home. Patient continues to have good urine outpu t with 6900ml, over the past 24 hours.His lower extremity edema has improved. Patient currently maintained on IV Lasix to 40mg BID, metolazone 5 mg once daily, low-salt diet and fluid restrictions. Telemetry reviewed patient sinus rhythm, heart rate 6070s. Labs reviewed, sodium 136, potassium 4.5, BUN 95, serum creatinine 3.5. PHYSICAL EXAM: VITAL SIGNS: Reviewed. GENERAL: No acute distres HEENT: Neck Supple No JVD. LUNGS: Respirations even and unlabored. Lungs diminished to auscultation bilaterally. HEART: Regular rate and rhythm. S1 and S2 heard. ABDOMEN: Soft. Nondistended. Nontender. EXTREMITIES: Normal range of motion. No clubbing or cyanosis. Peripheral pulses intact. mild bilateral lower extremity edema NEUROLOGIC: Awake and alert. Oriented x 3. ASSESSMENT: Acute on chronic diastolic heart failure Coronary artery disease with previous CABG and stenting Hypertension Hyperlipidemia Acute on chronic kidney disease Abnormal troponins, secondary to above, no evidence of acute coronary syndrome Morbid obesity Diabetes Sinus tachycardia Obstructive sleep apnea PLAN: Continue IV lasix per nephrology, decreased today to IV 40mg BID Decrease metoprolol tartrate to 100mg BID with HR in the 60s, if patient becomes more tachycardic will increase metoprolol tartrate to 100mg TID as tolerated. Recommend BiPAP I/Os, daily weights Monitor renal function and electrolytes Continue aspirin 81mgdaily, atorvastatin 80 mg nightly, Plavix 75 mg daily Continue telemetry Further recommendations pending patient's course Nurse practitioner note has been reviewed by physician. Signing provider agrees with the documented findings, assessment, and plan of care. Objective - Vital Signs Vital signs: Vital Signs Temp 98 F 03/26/21 08:00 Pulse 67 03/26/21 08:00 Resp 18 03/26/21 08:00 BP 119/97 03/26/21 08:00 Pulse Ox 99 03/26/21 08:00 Intake & Output 03/25/21 03/26/21 03/26/21 18:59 06:59 18:59 Intake Total 420 684 Output Total 1800 5100 Balance -1380 -4416 Weight 146.8 kg Intake: Oral 420 684 Output: Urine 1800 5100 Uretheral (Weinberg) 600 Other: Voiding Method Indwelling Catheter Indwelling Catheter Indwelling Catheter # Bowel Movements 0 - Labs CBC & Chem 7: 03/25/21 07:01 03/26/21 09:56 Labs: Abnormal Lab Results - Last 24 Hours (Table) 03/19/21 03/25/21 03/25/21 Range/Units 07:20 07:01 11:54 Monocytes # (Manual) 1.32 H (0-1.0) k/uL Sodium (137-145) mmol/L Chloride (98-107) mmol/L Carbon Dioxide (22-30) mmol/L BUN (9-20) mg/dL Creatinine (0.66-1.25) mg/dL Glucose (74-99) mg/dL POC Glucose (mg/dL) 124 H (75-99) mg/dL Albumin (PEP) 3.02 L (3.80-4.90) g/dL 03/26/21 Range/Units 09:56 Monocytes # (Manual) (0-1.0) k/uL Sodium 136 L (137-145) mmol/L Chloride 96 L (98-107) mmol/L Carbon Dioxide 34 H (22-30) mmol/L BUN 95 H (9-20) mg/dL Creatinine 3.56 H (0.66-1.25) mg/dL Glucose 129 H (74-99) mg/dL POC Glucose (mg/dL) (75-99) mg/dL Albumin (PEP) (3.80-4.90) g/dL
--- NOTE | 2021-03-26 13:29 | P.PN ---
Subjective Progress Note Date: 03/26/21 Patient is a 51-year-old male with a known history of coronary artery disease status post CABG, cardiac catheterization and stent placement, hypertension, hyperlipidemia, diabetes type 2 and chronic kidney disease past nephrolithiasis and chronic low back pain, morbid obesity with a BMI 51.4 presents to ER with complaints of worsening bilateral leg swelling and increased abdominal girth. Patient has been having worsening symptoms for the past few weeks. Patient is also complaining of swelling in the scrotal area. Denies any chest pain. Patient does have extensive cardiac history with previous history of CABG and 7 stents placement. Denies any fever or chills. No cough or sputum production. No nausea vomiting or abdominal pain or diarrhea. Chest x-ray showed no acute cardiopulmonary process Venous duplex showed suboptimal study without convincing evidence of acute DVT on either lower extremity. EKG showed sinus tachycardia. Poor data quality. Laboratory data showed WBC 8.9 hemoglobin 15.5 and platelets 175 BUN 31 creatinine 2.04, magnesium 1.5, troponin 0 0.074, 0.082 and 0.075, proBNP 677 Albumin 2.9, free T4 0.78 03/19/2021 Patient is currently sitting in the chair. Still having bilateral lower acuity swelling and scrotal edema. Patient was continued on IV Lasix. Change to Lasix drip. Denied any complaints of chest pain or shortness breath. No fever no chills. No cough or sputum production. No nausea vomiting abdominal pain or diarrhea. Laboratory data showed sodium 136 potassium 4.6 chloride 103 BUN 39 and creatinine 2.26 and blood sugar is 268 and magnesium 1.4 Hepatitis panel and complement within normal limits. Nephrology and cardiology is on board. Abdominal ultrasound showed no hydronephrosis. 2D echocardiogram showed overall left ventricular systolic function is mildly impaired ejection fraction 45 to 50%. Right ventricle is moderately enlarged. 03/20/2021 Patient is currently sitting in a chair. Awake alert 1x3. Still having bilateral lower extremity minor scrotal swelling. Complains of back pain as well. Otherwise laboratory data showed sodium 138 potassium 4.3 bicarb is 33 BUN 47 and creatinine 2.26 Patient is being current on Lasix drip. Patient denied any complaints of nausea vomiting abdominal pain or diarrhea. Diuresing well. Pereira catheter is in place. Patient has been afebrile. No cough or sputum production. Nephrology is on board. 03/21/2021 Patient is currently lying in the bed. Awake alert oriented 3. Still having bilateral lower activity swelling and significant scrotal swelling. Patient is diuresing well. Blood pressure is stable. Denied any compressive dizziness or lightheadedness. Patient does feel weak. No nausea vomiting or abdominal pain or diarrhea. Nephrology and cardiology on board. Patient is being continued on Lasix drip. Laboratory data showed BUN 55 and creatinine 2.75. 03/22/2021 Patient is currently sitting in the chair. Feels very weak. Denies any complaints of chest pain or worsening shortness breath. Patient is diuresing well with Lasix drip. Patient is also on metolazone. Bilateral lower extremity swelling is improving. Still having significant scrotal swelling. Pereira catheter is in place. No complaints of nausea vomiting or diarrhea. Denies any headache or dizziness or lightheadedness. Blood sugar is down to 70s and insulin dose was reduced. Laboratory showed BUN 77 creatinine 3.59, WBC 11.3 hemoglobin 13.8 and platelets 142 Urinalysis showed large blood and elevated RBCs. No infection. Nephrology and cardiology is on board. 03/23/2021 Patient was admitted to the hospital due to volume overload. Patient is currently sitting in the chair. Feels better today. No complaints of chest pain or worsening shortness of breath. Bilateral lower extremity swe lling is improving. Still having scrotal swelling. Remains on IV Lasix drip and also on metolazone. Patient has good urine output with 5.2 L in the past 24 hours.. Next No nausea vomiting or diarrhea. Able to tolerate oral diet. Insulin dose was reduced due to hypoglycemic episodes. Laboratory showed BUN 86 and creatinine 3.86. Cardiology nephrology is on board. 03/24/2021 Patient is evaluated today sitting in the chair, transitioned from IV Lasix drip to IV Lasix. States that the edema is improving his lower extremities, scrotum is quite edematous still. He does have some weeping to his left lower extremity. Patient complains of some excoriation to his buttock, and in his groin. He states his breathing is much improved. Continues with the Pereira catheter, -3600 mL's in the last 24 hours. Labs today show a white count 10.9, sodium 136, potassium 5, chloride 96, bicarb 31, BUN 36 and creatinine 3.19, mag is 1.7. Vital signs today show a heart rate of 125, blood pressure 186/89 and he is 96% on room air. He is afebrile. 03/25/2021 Patient evaluated today sitting in a chair. He is on IV Lasix 40 mg Q12h. labs today show a creatinine of 3.54, BUN 51, sodium 135, chloride 95, bicarb 33, calcium 8.3. His hemoglobin is 12.1. Vital show a temp of 97.4, he is tachycardic 106, blood pressure 124/87 is 96% on room air. Continues to have +2 lower extremity pitting edema, and scrotal edema. Patient is still complaining of some excoriation in his buttock, discussed with nursing staff to utilize barrier cream and nystatin BID, and cleanse daily. 03/26/2021 Patient is evaluated today sitting up in the chair. Apparently this morning there was some concern that he was lethargic and confused. Upon my assessment patient was alert and oriented 3, he is quite agitated. He would benefit from BiPAP while sleeping. He continues with the pereira catheter, he is down 4.3 L in the last 24 hours. His scrotum is still quite edematous, lower extremities appear to be improving slowly. Continue the IV Lasix 40 mg twice a day. Labs today; sodium 136, potassium 4.5, chloride 96, bicarb 34, BUN 95, creatinine 3.56, calcium 8.6. Blood sugars are in the 140s. Wound care is following for the wound to his left rees recommending collagen with silver. Current medications reviewed. ROS Constitutional: Denied any fatigue denied any fever. Cardio vascular: denied any chest pain, palpitations Gastrointestinal denied any nausea vomiting Pulmonary: Denied any shortness of breath cough Neurologic denied any new focal deficits All inpatient medications were reviewed and appropriate changes in these medications as dictated in the interval history and assessment and plan. PHYSICAL EXAMINATION: GENERAL: The patient is alert and oriented x3, not in any acute distress. Well developed, well nourished. HEENT: Pupils are round and equally reacting to light. EOMI. No scleral icterus. No conjunctival pallor. Normocephalic, atraumatic. No pharyngeal erythema. No th yromegaly. CARDIOVASCULAR: S1 and S2 present. No murmurs, rubs, or gallops. PULMONARY: Chest is clear to auscultation, no wheezing or crackles. ABDOMEN: Soft, nontender, large, obese, normoactive bowel sounds. No palpable organomegaly. MUSCULOSKELETAL: No joint swelling or deformity. EXTREMITIES: No cyanosis, clubbing, +2 bilateral lower extremity edema, scrotal edema NEUROLOGICAL: Gross neurological examination did not reveal any focal deficits. SKIN: Maceration and weeping to left rees and right rees, excoriation to groin and buttock Assessment and plan Bilateral lower extremity swelling along with scrotal swelling/volume overload. Acute on chronic kidney disease stage III due to cardiorenal syndrome baseline creatinine 1.7, currently 3.56 Congestive heart failure, with acute exacerbation, systolic and diastolic, current EF 45-50% Hypertension Hyperlipidemia Coronary artery disease status post stent placement and CABG Elevated troponin level. Likely due to acute on chronic kidney disease. Diabetes type 2 Insulin-dependent. Urinary retention s/p placement of indwelling catheter Intertrigo Morbid obesity with a BMI 47.8 Hypomagnesemia. Replaced. DVT prophylaxis with heparin subcu Plan: Elevate lower extremities when sitting in bed, elevate scrotum with a sling if patient can tolerate. Continue on IVP lasix and metalazone Cardiology decreased dose of metoprolol due to sinus bradycardia, continue to monitor Continue strict I&O, 1500 CC fluid restriction, daily weights BiPAP when sleeping Zinc barrier paste to buttock, nystatin cream to groin Continue with aspirin, statins and Plavix. Continue with IDC, and flomax Continue on home dose of novolog and levemir Repeat labs in the morning. Objective - Vital Signs Vital signs: Vital Signs Temp 98 F 03/26/21 08:00 Pulse 67 03/26/21 08:00 Resp 18 03/26/21 08:00 BP 119/97 03/26/21 08:00 Pulse Ox 99 03/26/21 08:00 Intake & Output 03/25/21 03/26/21 03/26/21 18:59 06:59 18:59 Intake Total 420 684 Output Total 1800 5100 Balance -1380 -9236 Weight 146.8 kg Intake: Oral 420 684 Output: Urine 1800 5100 Uretheral (Pereira) 600 Other: Voiding Method Indwelling Catheter Indwelling Catheter Indwelling Catheter # Bowel Movements 0 - Labs CBC & Chem 7: 03/25/21 07:01 11/17/21 09:56 Labs: Abnormal Lab Results - Last 24 Hours (Table) 03/19/21 03/26/21 03/26/21 Range/Units 07:20 09:56 11:32 Sodium 136 L (137-145) mmol/L Chloride 96 L (98-107) mmol/L Carbon Dioxide 34 H (22-30) mmol/L BUN 95 H (9-20) mg/dL Creatinine 3.56 H (0.66-1.25) mg/dL Glucose 129 H (74-99) mg/dL POC Glucose (mg/dL) 145 H (75-99) mg/dL Albumin (PEP) 3.02 L (3.80-4.90) g/dL Assessment and Plan Time with Patient: Greater than 30
--- NOTE | 2021-03-26 15:34 | PN ---
PROGRESS NOTE Patient is seen for followup for acute kidney injury. His renal function had been worsening and therefore diuretics were decreased. This morning he is confused and he is being placed on BiPAP. Upon review of the I's and O's, it appears that patient had about 6.9 L of urine output. His weight is down significantly to about 146.8 kg from initial weight of about 158 kg on 03/17. The Lasix dose was decreased to 40 mg q.12 hours yesterday and patient is also maintained on Zaroxolyn. Creatinine is about the same as yesterday; it has at least not increased further. On examination today, blood pressure 118/77, heart rate 80 per minute. He is afebrile. EXAMINATION OF THE HEART: S1 and S2. EXAMINATION OF LUNGS: Decreased breath sounds at the bases. Abdomen is soft, obese. Examination of lower extremities shows improving edema. Chronic skin changes noted. Scab noted on the left leg. Labs show sodium 136, potassium 4.5, chloride 96. CO2 is 34, BUN 95, creatinine 3.56. ASSESSMENT: 1. Acute kidney injury associated with recent diuresis. Lasix has been decreased. I will decrease the Lasix to once a day. Patient had 6.9 L of urine output for the last 24 hours. Serum creatinine seems to have at least stabilized. We will repeat labs in a.m. 2. Mental status changes, possible CO2 retention versus uremia. We will repeat labs in a.m. Serum creatinine has not further increased from yesterday. Expect improvement by tomorrow. No indication for renal replacement therapy at this time. We will decrease diuretics. 3. Severe volume overload and lower extremity edema, slowly improving. PLAN: Decrease Lasix. Repeat labs in a.m. Continue with Weinberg catheter. MMODL / IJN: [id number] /
[2021-03-26 17:02] LABS: Glucose,Whole Blood 430 mg/dL (75-99)
[2021-03-26 19:56] LABS: Glucose,Whole Blood 192 mg/dL (75-99)
[2021-03-26] MEDS: SERTRALINE 50 MG TAB PO SCH (20:16)
[2021-03-26] MEDS: MONTELUKAST 10 MG TAB PO SCH (20:16)
[2021-03-26] MEDS: ATORVASTATIN 80 MG TAB PO SCH (20:18)
[2021-03-26] MEDS: INSULIN DETEMIR (LEVEMIR) 100 UNIT/ML SYR SQ SCH (21:07)
[2021-03-27] MEDS: HYDROcodone/APAP 10-325MG 1 EACH TAB PO PRN ×3 (02:07→18:16)
[2021-03-27 06:11] LABS: Glucose,Whole Blood 174 mg/dL (75-99)
[2021-03-27] MEDS: PANTOPRAZOLE 40 MG TABLET PO SCH ×2 (06:40→17:46)
[2021-03-27] MEDS: INSULIN ASPART (NovoLOG) 100 UNIT/ML VIAL SQ SCH ×3 (08:26→16:58)
[2021-03-27] MEDS: PREGABALIN 75 MG CAP PO SCH ×2 (08:34→20:20)
[2021-03-27] MEDS: ASPIRIN 81 MG PO SCH (08:34)
[2021-03-27] MEDS: METOPROLOL TARTRATE 50 MG TAB PO SCH ×2 (08:34→20:20)
[2021-03-27] MEDS: MECLIZINE 25 MG TAB PO SCH ×3 (08:34→20:23)
[2021-03-27] MEDS: CLOPIDOGREL 75 MG TAB PO SCH (08:34)
[2021-03-27] MEDS: metOLazone 5 MG TAB PO SCH (08:35)
[2021-03-27] MEDS: NYSTATIN 100,000UNIT/GM CREAM 30 GM TUBE TOPICAL SCH ×2 (08:35→20:20)
[2021-03-27] MEDS: TAMSULOSIN 0.4 MG CAP.ER.24H PO SCH (08:35)
[2021-03-27] MEDS ORDERED: FUROSEMIDE 10 MG/ML 4 ML VIAL IV SCH (09:00)
[2021-03-27 10:06] LABS: Basophils % (A) 0 %; Eosinophils # (A) 0.2 k/uL (0-0.7); Eosinophils % (A) 2 %; HCT 36.9 % (39.0-53.0); Lymphocytes # (A) 1.2 k/uL (1.0-4.8); Lymphocytes % (A) 12 %; MCH 32.2 pg (25.0-35.0); MCHC 32.5 g/dL (31.0-37.0); MCV 99.2 fL (80.0-100.0); Monocytes % (A) 9 %; Neutrophils # (A) 7.3 k/uL (1.3-7.7); Neutrophils % (A) 72 %; Platelet Count 194 k/uL (150-450); Poikilocytosis Slight; RBC 3.72 m/uL (4.30-5.90); RDW 14.2 % (11.5-15.5); WBC 10.1 k/uL (3.8-10.6)
[2021-03-27 10:19] LABS: Calcium 8.5 mg/dL (8.4-10.2); Potassium 4.9 mmol/L (3.5-5.1)
[2021-03-27 11:43] LABS: Glucose,Whole Blood 250 mg/dL (75-99)
--- NOTE | 2021-03-27 12:08 | P.PN ---
Subjective This is a 51-year-old male with a past medical history significant for coronary artery disease with previous CABG and subsequent stenting, hypertension, hyperlipidemia, nicotine dependence, and morbid obesity. Patient follows in the office with Dr. Mallory. We have been asked to see the patient in consultation for CHF. Patient presents to the emergency department on 03/17/21. Patient stated he was taken off his lasix 6-8 weeks ago due to worsening kidney function. He presents with complaints of weight gain of about 30-40 lbs since that time. He reports increased lower extremity edema. DIAGNOSTICS: Echocardiogram revealed EF of 4550 percent, severe concentric left ventricular hypertrophy. Cardiac catheterization history: August 2018 feeling patent OMALLEY to LAD, pain and SVG to diagonal, patent SVG to RCA. Severe disease involving the first obtuse marginal branch of left circumflex as well as the ramus intermedius area patient underwent stenting of the first obtuse marginal branch of the left circumflex. Medical management was recommended for ramus intermedius. 03/26/21 Patient seen in the bedside, he is more alert this morning, walking around room with no complaints. Patient continues to have good urine output with 6900ml, over the past 24 hours.His lower extremity edema has improved. Patient currently maintained on IV Lasix to 40mg daily, Plavix 75 mg daily, metoprolol titrate 100 mg twice a day metolazone 5 mg once daily, low-salt diet and fluid restrictions. Telemetry reviewed patient sinus rhythm, heart rate 6080s. Labs reviewed, sodium 133, potassium 4.9, BUN 92, serum creatinine 3.27 PHYSICAL EXAM: VITAL SIGNS: Reviewed. GENERAL: No acute distres HEENT: Neck Supple No JVD. LUNGS: Respirations even and unlabored. Lungs diminished to auscultation bilaterally. HEART: Regular rate and rhythm. S1 and S2 heard. ABDOMEN: Soft. Nondistended. Nontender. EXTREMITIES: Normal range of motion. No clubbing or cyanosis. Peripheral pulses intact. mild bilateral lower extremity edema NEUROLOGIC: Awake and alert. Oriented x 3. ASSESSMENT: Acute on chronic diastolic heart failure Coronary artery disease with previous CABG and stenting Hypertension Hyperlipidemia Acute on chronic kidney disease Abnormal troponins, secondary to above, no evidence of acute coronary syndrome Morbid obesity Diabetes Sinus tachycardia Obstructive sleep apnea PLAN: IV lasix per nephrology, decreased today to IV 40mg daily Continue metoprolol tartrate to 100mg BID with HR in the 60s-80s sinus I/Os, daily weights Monitor renal function and electrolytes Continue aspirin 81mgdaily, atorvastatin 80 mg nightly, Plavix 75 mg daily Continue telemetry From a cardiology perspective we will continue current medical regimen, no changes. We will follow the patient as needed. He is stable from a cardiology perspective for discharge when cleared by primary team and other consultants. Patient to follow up with Dr. Mallory Nurse practitioner note has been reviewed by physician. Signing provider agrees with the documented findings, assessment, and plan of care. Objective - Vital Signs Vital signs: Vital Signs Temp 97.9 F 03/27/21 08:33 Pulse 111 H 03/27/21 08:33 Resp 18 03/27/21 08:33 BP 112/65 03/27/21 08:33 Pulse Ox 92 L 03/27/21 08:33 Intake & Output 03/26/21 03/27/21 03/27/21 18:59 06:59 18:59 Intake Total 180 Output Total 800 Balance -800 180 Weight 146.7 kg Intake: Oral 180 Output: Urine 800 Other: Voiding Method Indwelling Catheter Indwelling Catheter Indwelling Catheter - Labs CBC & Chem 7: 03/27/21 09:21 03/27/21 09:21 Labs: Abnormal Lab Results - Last 24 Hours (Table) 03/26/21 03/26/21 03/27/21 Range/Units 16:59 19:55 06:10 RBC (4.30-5.90) m/uL Hgb (13.0-17.5) gm/dL Hct (39.0-53.0) % Sodium (137-145) mmol/L Chloride (98-107) mmol/L BUN (9-20) mg/dL Creatinine (0.66-1.25) mg/dL Glucose (74-99) mg/dL POC Glucose (mg/dL) 430 H 192 H 174 H (75-99) mg/dL 03/27/21 03/27/21 03/27/21 Range/Units 09:21 09:21 11:42 RBC 3.72 L (4.30-5.90) m/uL Hgb 12.0 L (13.0-17.5) gm/dL Hct 36.9 L (39.0-53.0) % Sodium 133 L (137-145) mmol/L Chloride 97 L (98-107) mmol/L BUN 92 H (9-20) mg/dL Creatinine 3.27 H (0.66-1.25) mg/dL Glucose 241 H (74-99) mg/dL POC Glucose (mg/dL) 250 H (75-99) mg/dL
--- NOTE | 2021-03-27 14:22 | P.DS ---
Providers Date of admission: 03/17/21 15:35 Attending physician: Caroline Garza Consults: 03/17/21 15:35 Consult Physician Routine Consulting Provider: Marzena Zavala Consult Reason/Comments: heart failure, t 0.074 Do you want consulting provider notified?: Yes 03/18/21 08:19 Consult Physician Routine Consulting Provider: Sheila Arellano Consult Reason/Comments: RAMILA Do you want consulting provider notified?: Yes Primary care physician: Van Hinds Hospital Course: Final diagnosis Acute on chronic kidney disease stage III due to cardiorenal syndrome baseline creatinine 1.7, currently 3.27 Congestive heart failure, with acute exacerbation, systolic and diastolic, current EF 45-50% Bilateral lower extremity swelling along with scrotal swelling/volume overload secondary to above Hypertension Hyperlipidemia Coronary artery disease status post stent placement and CABG Elevated troponin level. Likely due to acute on chronic kidney disease. Diabetes type 2 Insulin-dependent. Urinary retention requiring indwelling catheter, started on flomax Intertrigo Morbid obesity with a BMI 47.8 Hypomagnesemia. Replaced. DVT prophylaxis with heparin subcu Discharge disposition Patient is discharged home. This is a noncompliant patient who did not follow with low sodium and fluid restricted diet during this hospital stay. Discharge medications include Flomax, metolazone, Lasix, aspirin, Plavix, Lipitor, Lopressor. As well as all other home medications. Metolazone can be held for 2 days on discharge. We did stop the lisinopril and Imdur on discharge as patient was mildly hypotensive with marginal blood pressures and tachycardic, ejection fraction was 45-50% with LV hypertrophy, with this mildly impaired systolic function,generally does not require an EMILY inhibitor on discharge. Patient benefit more from a beta kayla for the tachycardia. We will repeat labs in 2-3 days outpatient. Patient will benefit from an outpatient sleep study for question of possible sleep apnea as patients pulse ox has been dropping into the 80s around midnight. Follow-up closely with PCP, nephrology, cardiology, wound center if needed, and home care services. 1500 CC fluid restriction low sodium diet recommended. Hospital course This is a 51-year-old male who was presented to the emergency room with worsening symptoms of bilateral leg swelling scrotal edema and increased abdominal girth over the last few weeks. Patient has a known history of coronary artery disease status post CABG, cardiac catheterization with stent placement, hypertension, hyperlipidemia, diabetes mellitus type 2 with hyperglycemia and chronic kidney disease, past nephrolithiasis and chronic low back pain, morbid obesity. Patient denied any pain on admission. He has an extensive cardiac history with CABG in 7 stents. Chest x-ray showed no acute coronary process on admission. Venous duplex showed a suboptimal study without convincing evidence of acute DVT in either lower extremity. EKG showed sinus tachycardia with poor data quality. Labs on admission show white blood cell count of 8.9, hemoglobin 15.5 and platelets of 175. On admission BUN was 31, creatinine 2.04, magnesium 1.5, troponin 0.074, 0.082 and 0.075, proBNP level was 677, albumin 2.9 and free T4 0.78. Hemoglobin A1c is 7. Covid PCR was not detected, hepatitis panel is negative. Urinalysis shows 2+ protein, small leukocyte esterase, large RBCs. Echocardiogram was performed which showed overall left ventricular systolic function mildly impaired with ejection fraction of 45-50%. Right ventricle is moderately enlarged. Abdomen ultrasound was negative for any hydronephrosis. Patient denies any nausea vomiting or diarrhea. There was no fever or chills. He denied any chest pain however it does have some shortness of breath with exertion. He is maintained saturation on room air. Consultations include cardiology and nephrology; who has been managing diuretics. Patient was started on an Lasix drip during this hospital stay and had a diuresis of over 32 L. Creatinine did peak at 3.86 however has started to trend down and is currently 3.27. Sodium on admission was 138, after diuresis on Lasix drip patient was transitioned to Lasix 40 mg IV daily and subsequently his sodium dropped to 133 suspected overdiuresis as blood pressure was also 90s over 60s. We discussed this with cardiology as patient was tachycardic in the 116 and they recommend possibly increasing metoprolol to 100 mg by mouth 3 times a day as opposed to 150 mg by mouth twice a day as previously receiving. Patient has remained afebrile this admission. There has been no leukocytosis. Additionally patient has a wound to his left rees that he states are chronic in nature. He was evaluated by wound care services who recommended F dressing changes. Wound Care Instructions: Left anterior lower extremity: Apply collagen silver, saline moist, dry gauze, rolled guaze. Secure with paper tape. 03/27/2021 Patient is evaluated today in the bed. He was cleared by cardiology for discharge on metoprolol twice a day, question for increasing to metoprolol 3 times a day for elevated heart rate in the 110s. Blood pressure this afternoon to drop into the low 90s over 60s, heart rate 116, 93% on room air, afebrile. Sodium level today is 133, he most likely overdiuresis he had 6.9 L out over the last 24 hours. Patient continues on IV Lasix 40 mg daily. Patient has been noncompliant with his fluid restriction and low sodium diet during this hospital stay. 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 We did okay removing the catheter today for a voiding trial as patient is getting closer to discharge. Creatinine today is down to 3.27 which appears closer to his baseline. Pending input from nephrology today. Patient denies any chest pain, chest pressure, palpitations. He denies any cough or shortness of breath. He denies any nausea vomiting or diarrhea. He does report some burning on the catheter insertion site, we did remove catheter for a voiding trial today. We can repeat urinalysis. Lungs are clear to auscultation, abdomen is firm round obese and nontender. There are positive bowel sounds. There is significant scrotal edema. Lower extremity edema is improving to 2+ pitting. There is excoriation in the patient's buttock, utilizing barrier paste as well as nystatin cream for the buttock and groin region. Patient was oriented 3, focal neurological exam is negative. He can be cleared medically for discharge home to continue with local wound care to his left lower extremity, follow-up closely with consultations and repeat CBC BMP in 2-3 days. Please see medication reconciliation for list of current medications. Thank you for allowing us to participate in the care of this patient. Patient Condition at Discharge: Fair Plan - Discharge Summary Discharge Rx Participant: No New Discharge Prescriptions: New Tamsulosin [Flomax] 0.4 mg PO PC-BRKFST #30 capsule Nystatin 100,000Unit/gm Cream [Mycostatin Cream] 1 applic TOPICAL BID #1 gm metOLazone [Zaroxolyn] 5 mg PO DAILY #30 tab Continue Atorvastatin [Lipitor] 80 mg PO HS #30 tab Clopidogrel [Plavix] 75 mg PO DAILY #30 tablet Sertraline [Zoloft] 50 mg PO HS Meclizine [Antivert] 25 mg PO TID Metoprolol Tartrate [Lopressor] 100 mg PO BID Aspirin EC [Ecotrin Low Dose] 81 mg PO DAILY Montelukast [Singulair] 10 mg PO HS Omeprazole [PriLOSEC] 40 mg PO BID HYDROcodone/APAP 10-325MG [[place]rock 10-325] 1 tab PO Q4H PRN PRN Reason: Pain Albuterol Inhaler [Ventolin Hfa Inhaler] 2 puff INHALATION RT-Q6H PRN PRN Reason: Shortness Of Breath Fenofibrate [Lofibra] 160 mg PO HS Insulin Glargine [Lantus Vial] 80 unit SQ HS Pregabalin [Lyrica] 150 mg PO BID Ergocalciferol [Vitamin D2 (1250 Mcg = 58052 Iu)] 1,250 mcg PO STALLINGS Insulin Aspart [NovoLOG] 40 units SQ TID-W/MEALS Furosemide [Lasix] 40 mg PO DAILY Discontinued lisinopriL [Zestril] 10 mg PO HS Isosorbide Mononitrate ER [Imdur] 60 mg PO DAILY Discharge Medication List Atorvastatin [Lipitor] 80 mg PO HS #30 tab 08/12/17 [Rx] Clopidogrel [Plavix] 75 mg PO DAILY #30 tablet 08/12/17 [Rx] Sertraline [Zoloft] 50 mg PO HS 06/05/18 [History] Meclizine [Antivert] 25 mg PO TID 08/12/18 [History] Metoprolol Tartrate [Lopressor] 100 mg PO BID 08/12/18 [History] Aspirin EC [Ecotrin Low Dose] 81 mg PO DAILY 10/18/18 [History] HYDROcodone/APAP 10-325MG [[place] 10-325] 1 tab PO Q4H PRN 06/13/19 [History] Montelukast [Singulair] 10 mg PO HS 06/13/19 [History] Omeprazole [PriLOSEC] 40 mg PO BID 06/13/19 [History] Albuterol Inhaler [Ventolin Hfa Inhaler] 2 puff INHALATION RT-Q6H PRN 12/24/19 [History] Fenofibrate [Lofibra] 160 mg PO HS 12/24/19 [History] Insulin Aspart [NovoLOG] 40 units SQ TID-W/MEALS 08/26/20 [History] Insulin Glargine [Lantus Vial] 80 unit SQ HS 08/26/20 [History] Ergocalciferol [Vitamin D2 (1250 Mcg = 75554 Iu)] 1,250 mcg PO STALLINGS 03/17/21 [History] Furosemide [Lasix] 40 mg PO DAILY 03/17/21 [History] Pregabalin [Lyrica] 150 mg PO BID 03/17/21 [History] Nystatin 100,000Unit/gm Cream [Mycostatin Cream] 1 applic TOPICAL BID #1 gm 03/27/21 [Rx] Tamsulosin [Flomax] 0.4 mg PO PC-BRKFST #30 capsule 03/27/21 [Rx] metOLazone [Zaroxolyn] 5 mg PO DAILY #30 tab 03/27/21 [Rx] Follow up Appointment(s)/Referral(s): Sheila Arellano MD [STAFF PHYSICIAN] - 1 Week Guzman Araujo MD [Primary Care Provider] - 1-2 days Brock Mallory MD [STAFF PHYSICIAN] - 2 Weeks [facility], [NON-STAFF] - Wound Center[facility] [NON-STAFF] - 1 Week Ambulatory/Diagnostic Orders: Basic Metabolic Panel [LAB.AMB] Time Frame: 2 Days, Location: None Selected Complete Blood Count w/diff [LAB.AMB] Time Frame: 2 Days, Location: None Selected Activity/Diet/Wound Care/Special Instructions: Hold Metalazone for 2 days before resuming Patient needs to pass voiding trial Please give information on sleep center for outpatient evaluation for CPAP Wound care instructions: Left anterior lower exterimtiy: Apply collagen silver, saline moist, dry gauze, rolled guaze. Secure with paper tape. Discharge Disposition: HOME WITH HOME HEALTH SERVICES
[2021-03-27 16:54] LABS: Glucose,Whole Blood 66 mg/dL (75-99)
--- NOTE | 2021-03-27 17:00 | PN ---
PROGRESS NOTE Patient is seen for followup for acute kidney injury. His renal function is actually improving. Diuretics were decreased yesterday. A 24-hour output was 6.9 previously, but for the last 24 hours it does not seem to be documented accurately. On examination today, blood pressure this morning was 103/64, heart rate of 115 per minute. Patient is afebrile. Examination of the heart S1, S2. Examination of the lungs, decreased breath sounds at the bases. Abdomen is soft, nontender, morbidly obese. Examination of lower extremities shows decreasing edema. There still appears to be significant lower extremity edema. Scrotal edema is improving. EXHIBITS CURATOR exam is grossly intact. Patient moving all 4 extremities. LAB: Show hemoglobin 12.0, sodium 133, potassium 4.9, BUN 92, creatinine 3.27. ASSESSMENT: 1. Acute kidney injury associated with recent diuresis, currently improving. 2. Severe volume overload. The patient is being diuresed. Volume status improved significantly. He should continue with diuretics post discharge and repeat labs as outpatient for monitoring of renal function. 3. Severe volume overload, now improved. 4. Mental status changes yesterday, seemed to have improved today. The patient was placed on BiPAP. 5. Chronic kidney disease stage 3 with previous creatinine 1.7 in August and September of 2020, etiology diabetic kidney disease and nephrosclerosis. 6. Hypertension with chronic kidney disease stage 3B. 7. Urine retention currently with Weinberg catheter. 8. Cardiomyopathy, EF 45-50%. 9. Proteinuria secondary to diabetic kidney disease. PLAN: Continue with current dose of IV Lasix, can switch to p.o. tomorrow. The patient will need close followup as outpatient for monitoring of volume status and renal function. MMODL / IJN: [id number] /
[2021-03-27 17:24] LABS: Glucose,Whole Blood 81 mg/dL (75-99)
[2021-03-27 19:56] LABS: Glucose,Whole Blood 212 mg/dL (75-99)
[2021-03-27] MEDS: ATORVASTATIN 80 MG TAB PO SCH (20:19)
[2021-03-27] MEDS: SERTRALINE 50 MG TAB PO SCH (20:20)
[2021-03-27] MEDS: INSULIN DETEMIR (LEVEMIR) 100 UNIT/ML SYR SQ SCH (20:20)
[2021-03-27] MEDS: MONTELUKAST 10 MG TAB PO SCH (20:20)
[2021-03-27 23:11] VITALS: BP 140/76; PULSE 108; RESP 22; TEMP 98.2
== END 2021-03-28 00:40 | disposition left against medical advice (07) | DRG 291 ==
LOC: EC 13:12 → 3SCARD 15:35
PROVIDERS: ADMIT Internal Medicine; ATTEND Internal Medicine
DX: I13.0 Hypertensive heart and chronic kidney disease with heart failure and stage 1 through stage 4 chronic kidney disease, or unspecified chronic kidney disease (principal); I50.43 Acute on chronic combined systolic (congestive) and diastolic (congestive) heart failure; Z16.24 Resistance to multiple antibiotics; Z68.43 Body mass index [BMI] 50.0-59.9, adult; N17.9 Acute kidney failure, unspecified; E11.22 Type 2 diabetes mellitus with diabetic chronic kidney disease; I42.9 Cardiomyopathy, unspecified; E11.319 Type 2 diabetes mellitus with unspecified diabetic retinopathy without macular edema; E11.649 Type 2 diabetes mellitus with hypoglycemia without coma; Z20.822 Contact with and (suspected) exposure to COVID-19; E66.01 Morbid (severe) obesity due to excess calories; E78.5 Hyperlipidemia, unspecified; E83.42 Hypomagnesemia; G47.33 Obstructive sleep apnea (adult) (pediatric); I25.10 Atherosclerotic heart disease of native coronary artery without angina pectoris; N18.32 Chronic kidney disease, stage 3b; M54.9 Dorsalgia, unspecified; M79.89 Other specified soft tissue disorders; M54.50 Low back pain, unspecified; G89.29 Other chronic pain; G62.9 Polyneuropathy, unspecified; M19.041 Primary osteoarthritis, right hand; M19.042 Primary osteoarthritis, left hand; N50.89 Other specified disorders of the male genital organs; Z79.02 Long term (current) use of antithrombotics/antiplatelets; R77.8 Other specified abnormalities of plasma proteins; R00.0 Tachycardia, unspecified; E87.70 Fluid overload, unspecified; L30.4 Erythema intertrigo; S30.810A Abrasion of lower back and pelvis, initial encounter; Z91.19 Patient's noncompliance with other medical treatment and regimen; Z95.5 Presence of coronary angioplasty implant and graft; Z79.82 Long term (current) use of aspirin; Z79.4 Long term (current) use of insulin; I25.2 Old myocardial infarction; Z95.1 Presence of aortocoronary bypass graft; Z91.11 Patient's noncompliance with dietary regimen; Z87.891 Personal history of nicotine dependence; Z87.442 Personal history of urinary calculi; Z82.49 Family history of ischemic heart disease and other diseases of the circulatory system; Z79.899 Other long term (current) drug therapy
CPT/HCPCS: 36415; 71046; 76770; 80048; 80053; 80074; 81001; 82570; 83036; 83605; 83735; 83880; 84156; 84165; 84439; 84481; 84484; 85025; 85610; 85730; 86038; 86160; 86162; 86225; 86255; 86334; 86335; 87635; 93005; 93306; 93970; 94640; 94660; 94760; 96374; 99285

== ENCOUNTER 2022-03-05 06:53 | Day surgery (SDC) | payer MEDICARE, OTHER ==
[2022-03-03 14:49] VITALS: BMI 50.2
[~2022-03-05 06:53] MED LIST changes: -LIDOCAINE 1% (10MG/ML) FOR IV START INTRADERMA PRN
--- NOTE | 2022-03-05 07:40 | P.GSHP ---
History of Present Illness H&P Date: 03/05/22 CHIEF COMPLAINT: Colon screen HISTORY OF PRESENT ILLNESS: The patient is a 52-year-old male who presents for colon screen. Lower endoscopy was offered for further evaluation and management. PAST MEDICAL HISTORY: Please see list. PAST SURGICAL HISTORY: Please see list. MEDICATIONS: Please see list. ALLERGIES: Please see list. SOCIAL HISTORY: No illicit drug use FAMILY HISTORY: No reports of Crohn disease or ulcerative colitis. REVIEW OF ORGAN SYSTEMS: CONSTITUTIONAL: No reports of fevers or chills. PHYSICAL EXAM: VITAL SIGNS: Stable GENERAL: Well-developed pleasant in no acute distress. HEENT: No scleral icterus. Extraocular movements grossly intact. Moist buccal mucosa. NECK: Supple without lymphadenopathy. CHEST: Unlabored respirations. Equal bilateral excursions. CARDIOVASCULAR: Regular rate and rhythm. Distal 2+ pulses. ABDOMEN: Soft, nontender, nondistended. MUSCULOSKELETAL: No clubbing, cyanosis, or edema. ASSESSMENT: 1. Colon screen. PLAN: 1. Recommend proceeding with a lower endoscopy Past Medical History Past Medical History: Coronary Artery Disease (CAD), Diabetes Mellitus, Hyperlipidemia, Hypertension, Renal Disease Additional Past Medical History / Comment(s): Diabetes dx. in 2007, dx. neuropathy bilateral hands/feet, retinopathy bilateral eyes, nephrolithiasis, arthritis bilateral hands/wrists, chronic lumbar back pain, vertigo at times. Last Myocardial Infarction Date:: 11/02/16, 08/02/17 History of Any Multi-Drug Resistant Organisms: MRSA Date of last positivie culture/infection: 02/05/21 MDRO Source:: MRSA LEG Past Surgical History: Back Surgery, Coronary Bypass/CABG, Heart Catheterization With Stent, Orthopedic Surgery Additional Past Surgical History / Comment(s): PCI with stents, CABG 07/2017, kidney stone basketing, failed L4-L5 fusion x2, colonoscopy Past Anesthesia/Blood Transfusion Reactions: No Reported Reaction Date of Last Stent Placement:: 08/2018 Smoking Status: Former smoker - Past Family History Father Family Medical History: Congestive Heart Failure (CHF), Coronary Artery Disease (CAD), CVA/TIA, Myocardial Infarction (CO) Additional Family Medical History / Comment(s): Father at the age of 63 yrs. Pt doesn't recall age of father's [place]. Mother Family Medical History: Cancer Additional Family Medical History / Comment(s): Mother had multiple cancers. She is living. Medications and Allergies Home Medications Medication Instructions Recorded Confirmed Type Atorvastatin [Lipitor] 80 mg PO HS #30 tab 08/12/17 03/05/22 Rx Clopidogrel [Plavix] 75 mg PO DAILY #30 tablet 08/12/17 03/05/22 Rx Sertraline [Zoloft] 50 mg PO HS 06/05/18 03/05/22 History Meclizine [Antivert] 25 mg PO TID 08/12/18 03/05/22 History Metoprolol Tartrate [Lopressor] 100 mg PO BID 08/12/18 03/05/22 History Aspirin EC [Ecotrin Low Dose] 81 mg PO DAILY 10/18/18 03/05/22 History HYDROcodone/APAP 10-325MG [[place] 1 tab PO Q4H PRN 06/13/19 03/05/22 History 10-325] Montelukast [Singulair] 10 mg PO HS 06/13/19 03/05/22 History Omeprazole [PriLOSEC] 40 mg PO BID 06/13/19 03/05/22 History Albuterol Inhaler [Ventolin Hfa 2 puff INHALATION RT-Q6H PRN 12/24/19 03/05/22 History Inhaler] Fenofibrate [Lofibra] 160 mg PO HS 12/24/19 03/05/22 History Insulin Aspart [NovoLOG] 40 units SQ TID-W/MEALS 08/26/20 03/05/22 History Insulin Glargine [Lantus Vial] 80 unit SQ HS 08/26/20 03/05/22 History Ergocalciferol [Vitamin D2 (1250 1,250 mcg PO STALLINGS 03/17/21 03/05/22 History Mcg = 44910 Iu)] Furosemide [Lasix] 40 mg PO DAILY 03/17/21 03/05/22 History Pregabalin [Lyrica] 150 mg PO BID 03/17/21 03/05/22 History Tamsulosin [Flomax] 0.4 mg PO PC-BRKFST #30 capsule 03/27/21 03/05/22 Rx dilTIAZem HCL [Cardizem] 90 mg PO DAILY 03/03/22 03/05/22 History hydrALAZINE HCL 50 mg PO DAILY 03/03/22 03/05/22 History Allergies Allergy/AdvReac Type Severity Reaction Status Date / Time No Known Allergies Allergy Verified 07/16/21 21:19
[2022-03-05 07:51] LABS: Glucose,Whole Blood 143 mg/dL (70-110)
[2022-03-05 07:57] VITALS: TEMP 97
[2022-03-05] MEDS ORDERED: PROPOFOL 10 MG/ML 20 ML VIAL IV ONE (08:03)
--- NOTE | 2022-03-05 08:25 | P.PCN ---
Date of Procedure: 03/05/22 Description of Procedure: PREOPERATIVE DIAGNOSIS: Personal history of colon polyps Family history malignant colon polyps POSTOPERATIVE DIAGNOSIS: Tubular adenoma descending colon Colitis Poor prep OPERATION: Colonoscopy to the ileocecal valve and appendiceal orifice, cecum SURGEON: Sylvie Lagos MD. ANESTHESIA: MAC. INDICATIONS: The patient is an 52-year-old male who presents family history of malignant colon polyps and personal history of colon polyps. Last colonoscopy less than 5 years ago. Benefits and risks were described and informed consent was obtained. DESCRIPTION OF PROCEDURE: The patient had undergone Suprep. The patient had been brought into the operating room and laid in the left lateral decubitus position. After adequate intravenous sedation, the rectum was examined with 2% lidocaine jelly. The prostate was unremarkable. No external hemorrhoids were encountered. The rectal tone was within normal limits. No lesions were palpated in the rectal vault. An Olympus colonoscope was advanced until the cecum, ileocecal valve and appendiceal orifice were clearly viewed. The prep was poor. No sigmoid diverticulosis was encountered. Colonic polyps were found and removed. Mild colitis was found of the sigmoid colon. Retroflexion of the scope demonstrated grade 2 internal hemorrhoids without active bleeding or inflammation. The colon was desufflated. The patient had tolerated the procedure well. Withdrawal time was over 6 minutes. FINDINGS: Aronchick preparation quality scale 3+ (1-5) Internal hemorrhoids, grade 2 No external hemorrhoids No arteriovenous malformations. Polyp in descending colon, unable to retrieve due to poor prep Focal colitis at sigmoid colon RECOMMENDATIONS: Repeat colonoscopy in 3 years, 2024 Recommend extended colon prep, 3 days Plan - Discharge Summary Discharge Rx Participant: Yes New Discharge Prescriptions: Continue Atorvastatin [Lipitor] 80 mg PO HS #30 tab Clopidogrel [Plavix] 75 mg PO DAILY #30 tablet Sertraline [Zoloft] 50 mg PO HS Meclizine [Antivert] 25 mg PO TID Metoprolol Tartrate [Lopressor] 100 mg PO BID Aspirin EC [Ecotrin Low Dose] 81 mg PO DAILY Montelukast [Singulair] 10 mg PO HS Omeprazole [PriLOSEC] 40 mg PO BID HYDROcodone/APAP 10-325MG [[place] 10-325] 1 tab PO Q4H PRN PRN Reason: Pain Albuterol Inhaler [Ventolin Hfa Inhaler] 2 puff INHALATION RT-Q6H PRN PRN Reason: Shortness Of Breath Fenofibrate [Lofibra] 160 mg PO HS Insulin Glargine [Lantus Vial] 80 unit SQ HS Pregabalin [Lyrica] 150 mg PO BID Ergocalciferol [Vitamin D2 (1250 Mcg = 27241 Iu)] 1,250 mcg PO STALLINGS Tamsulosin [Flomax] 0.4 mg PO PC-BRKFST #30 capsule hydrALAZINE HCL 50 mg PO DAILY dilTIAZem HCL [Cardizem] 90 mg PO DAILY Insulin Aspart [NovoLOG] 40 units SQ TID-W/MEALS Furosemide [Lasix] 40 mg PO DAILY Discharge Medication List Atorvastatin [Lipitor] 80 mg PO HS #30 tab 08/12/17 [Rx] Clopidogrel [Plavix] 75 mg PO DAILY #30 tablet 08/12/17 [Rx] Sertraline [Zoloft] 50 mg PO HS 06/05/18 [History] Meclizine [Antivert] 25 mg PO TID 08/12/18 [History] Metoprolol Tartrate [Lopressor] 100 mg PO BID 08/12/18 [History] Aspirin EC [Ecotrin Low Dose] 81 mg PO DAILY 10/18/18 [History] HYDROcodone/APAP 10-325MG [[place] 10-325] 1 tab PO Q4H PRN 06/13/19 [History] Montelukast [Singulair] 10 mg PO HS 06/13/19 [History] Omeprazole [PriLOSEC] 40 mg PO BID 06/13/19 [History] Albuterol Inhaler [Ventolin Hfa Inhaler] 2 puff INHALATION RT-Q6H PRN 12/24/19 [History] Fenofibrate [Lofibra] 160 mg PO HS 12/24/19 [History] Insulin Aspart [NovoLOG] 40 units SQ TID-W/MEALS 08/26/20 [History] Insulin Glargine [Lantus Vial] 80 unit SQ HS 08/26/20 [History] Ergocalciferol [Vitamin D2 (1250 Mcg = 35671 Iu)] 1,250 mcg PO STALLINGS 03/17/21 [History] Furosemide [Lasix] 40 mg PO DAILY 03/17/21 [History] Pregabalin [Lyrica] 150 mg PO BID 03/17/21 [History] Tamsulosin [Flomax] 0.4 mg PO PC-BRKFST #30 capsule 03/27/21 [Rx] dilTIAZem HCL [Cardizem] 90 mg PO DAILY 03/03/22 [History] hydrALAZINE HCL 50 mg PO DAILY 03/03/22 [History] Follow up Appointment(s)/Referral(s): Sylvie Lagos MD [STAFF PHYSICIAN] - As Needed Patient Instructions/Handouts: Colitis (ED) Activity/Diet/Wound Care/Special Instructions: Repeat colonoscopy in 3 years, 2024 Discharge Disposition: HOME SELF-CARE
[2022-03-05 08:31] VITALS: RESP 16
[2022-03-05 08:41] VITALS: BP 168/83; PULSE 84
== END 2022-03-05 09:36 | disposition home or self-care (01) ==
LOC: ORWHC2ENDO 06:53
PROVIDERS: ATTEND Surgery Plastic and Reconstructive Surgery
DX: Z12.11 Encounter for screening for malignant neoplasm of colon (principal); D12.4 Benign neoplasm of descending colon; K64.1 Second degree hemorrhoids; I25.10 Atherosclerotic heart disease of native coronary artery without angina pectoris; K52.9 Noninfective gastroenteritis and colitis, unspecified; E11.9 Type 2 diabetes mellitus without complications; E78.5 Hyperlipidemia, unspecified; M19.041 Primary osteoarthritis, right hand; I25.2 Old myocardial infarction; M19.042 Primary osteoarthritis, left hand; Z86.010 Personal history of colon polyps; Z80.0 Family history of malignant neoplasm of digestive organs; I10 Essential (primary) hypertension; Z95.1 Presence of aortocoronary bypass graft; Z95.5 Presence of coronary angioplasty implant and graft; Z87.891 Personal history of nicotine dependence; Z82.49 Family history of ischemic heart disease and other diseases of the circulatory system; Z79.02 Long term (current) use of antithrombotics/antiplatelets; Z79.899 Other long term (current) drug therapy; Z79.82 Long term (current) use of aspirin; Z79.51 Long term (current) use of inhaled steroids; Z79.4 Long term (current) use of insulin
CPT/HCPCS: 45380; J2704

== ENCOUNTER 2023-04-26 11:00 | Day surgery (SDC) | payer MEDICARE, OTHER ==
[~2023-04-26 11:00] MED LIST changes: +DEXAMETHASONE SOD PHOSPHATE 4 MG/ML 1 ML VIAL IV ONE; +HYDROmorphone 0.5 MG/0.5 ML SYRINGE IVP PRN; +LIDOCAINE 1% (10MG/ML) FOR IV START INTRADERMA PRN; +MIDAZOLAM 2 MG/2 ML VIAL IV PRN; +ONDANSETRON 4 MG/2 ML VIAL IVP ONE; +fentaNYL (PF) 50 MCG/ML 2 ML AMP IV PRN
[2023-04-26] MEDS ORDERED: INSULIN ASPART (NovoLOG) 100 UNIT/ML VIAL SQ ONE (13:03)
[2023-04-26 13:06] VITALS: RESP 16
[2023-04-26 13:27] LABS: Glucose,Whole Blood 326 mg/dL (70-110)
[2023-04-26 13:31] LABS: Glucose,Whole Blood 325 mg/dL (70-110)
[2023-04-26 14:06] LABS: Glucose,Whole Blood 313 mg/dL (70-110)
[2023-04-26] MEDS ORDERED: MIDAZOLAM 2 MG/2 ML VIAL ONE (14:23)
[2023-04-26] MEDS ORDERED: LIDOCAINE 1% INJ 10MG/ML (20 ML MDV) ONE (14:23)
[2023-04-26] MEDS ORDERED: ceFAZolin 1,000 MG VIAL ONE (14:23)
[2023-04-26] MEDS ORDERED: fentaNYL (PF) 50 MCG/ML 2 ML AMP ONE (14:23)
[2023-04-26] MEDS ORDERED: ROCURONIUM 10 MG/ML (5 ML VIAL) IV ONE (14:23)
[2023-04-26] MEDS ORDERED: SUCCINYLCHOLINE CHLORIDE 200 MG/10 ML VIAL IV ONE (14:23)
[2023-04-26] MEDS ORDERED: SODIUM CHLORIDE 0.9% 100 ML with ceFAZolin 3,000 MG IV ONE ×2 (14:23)
[2023-04-26] MEDS ORDERED: NEOSTIGMINE 1 MG/ML 10 ML VIAL ONE (14:23)
[2023-04-26] MEDS ORDERED: ePHEDrine 50 MG/ML 1 ML VIAL ONE (14:23)
[2023-04-26] MEDS ORDERED: GLYCOPYRROLATE 0.2 MG/ML 2 ML VIAL ONE (14:23)
[2023-04-26] MEDS ORDERED: SODIUM CHLORIDE 0.9% 100 ML BAG ONE (14:23)
[2023-04-26] MEDS ORDERED: PROPOFOL 10 MG/ML 20 ML VIAL IV ONE (14:23)
[2023-04-26] MEDS ORDERED: BUPIVACAINE (PF) 0.25% 30 ML VIAL SQ ONE (14:43)
[2023-04-26 15:40] VITALS: TEMP 97
[2023-04-26 15:41] LABS: Glucose,Whole Blood 268 mg/dL (70-110)
--- NOTE | 2023-04-26 15:42 | P.OP ---
Date of Procedure: 04/26/23 Preoperative Diagnosis: End-stage renal disease Postoperative Diagnosis: Same Procedure(s) Performed: Laparoscopic peritoneal dialysis catheter placement Anesthesia: JERRY Surgeon: Fabrice Anderson Pathology: none sent Condition: stable Disposition: PACU Indications for Procedure: 53-year-old gentleman with history of end-stage renal disease presents to the operating room for elective laparoscopic peritoneal dialysis catheter placement. Description of Procedure: After written and informed consent was obtained the patient all risks, benefits and competitions were described patient is brought to the operative suite and laid in a supine position. The area of the abdomen was prepped and draped in usual sterile fashion after appropriate anesthetic was performed per the anesthesiologist. A timeout was performed in normal fashion antibiotics were administered prior to incision. A small incision was then created at Giordano's point with an 11 blade scalpel and utilizing a varies needle the abdomen was entered and water drop test was performed and shown to be intra-abdomina. The abdomen was then insufflated l. Utilizing a 5 mm Visiport trocar the abdomen was then entered and abdomen was interrogated demonstrating no abnormalities of the stomach, mesentery or small bowel. Patient was then placed in Trendelenburg position and a small incision was created just lateral to the umbilicus on the right with 11 blade scalpel. A 5 mm trocar was then placed and skived to the suprapubic region and entered into the pelvic area. The peritoneal dialysis catheter was then guided through the trocar under direct visualization of the laparoscope and placed within the pelvis. Cuff was visualized just outside of the peritoneum. The trocar was then removed and a counter-incision was created just lateral and the catheter was tunneled to this area. It was then connected to the peritoneal dialysis extended In normal fashion. A liter of saline was then instilled after deflating the abdomen without any complications to 600 mL and drained without any issues. All ports were then removed and the incisions were closed with 4-0 Vicryl suture. Skin was cleansed and dressed with glue. Dressings were then placed over the catheter. The patient tolerated the procedure well and was sent to PACU for recovery. Plan - Discharge Summary New Discharge Prescriptions: No Action Atorvastatin [Lipitor] 80 mg PO HS #30 tab Meclizine [Antivert] 25 mg PO TID Aspirin EC [Ecotrin Low Dose] 81 mg PO DAILY Montelukast [Singulair] 10 mg PO HS Omeprazole [PriLOSEC] 40 mg PO BID HYDROcodone/APAP 10-325MG [[place] 10-325] 1 tab PO Q4H PRN PRN Reason: Pain Albuterol Inhaler [Ventolin Hfa Inhaler] 2 puff INHALATION RT-Q6H PRN PRN Reason: Shortness Of Breath Fenofibrate [Lofibra] 160 mg PO HS Insulin Glargine [Lantus Vial] 80 unit SQ HS Pregabalin [Lyrica] 150 mg PO BID Tamsulosin [Flomax] 0.4 mg PO PC-BRKFST #30 capsule hydrALAZINE HCL 50 mg PO DAILY dilTIAZem HCL [Cardizem] 90 mg PO DAILY Insulin Aspart [NovoLOG] 40 units SQ TID-W/MEALS Furosemide [Lasix] 40 mg PO DAILY Discharge Medication List Atorvastatin [Lipitor] 80 mg PO HS #30 tab 08/12/17 [Rx] Meclizine [Antivert] 25 mg PO TID 08/12/18 [History] Aspirin EC [Ecotrin Low Dose] 81 mg PO DAILY 10/18/18 [History] HYDROcodone/APAP 10-325MG [[place] 10-325] 1 tab PO Q4H PRN 06/13/19 [History] Montelukast [Singulair] 10 mg PO HS 06/13/19 [History] Omeprazole [PriLOSEC] 40 mg PO BID 06/13/19 [History] Albuterol Inhaler [Ventolin Hfa Inhaler] 2 puff INHALATION RT-Q6H PRN 12/24/19 [History] Fenofibrate [Lofibra] 160 mg PO HS 12/24/19 [History] Insulin Aspart [NovoLOG] 40 units SQ TID-W/MEALS 08/26/20 [History] Insulin Glargine [Lantus Vial] 80 unit SQ HS 08/26/20 [History] Furosemide [Lasix] 40 mg PO DAILY 03/17/21 [History] Pregabalin [Lyrica] 150 mg PO BID 03/17/21 [History] Tamsulosin [Flomax] 0.4 mg PO PC-BRKFST #30 capsule 03/27/21 [Rx] dilTIAZem HCL [Cardizem] 90 mg PO DAILY 03/03/22 [History] hydrALAZINE HCL 50 mg PO DAILY 03/03/22 [History]
[2023-04-26 16:27] VITALS: BP 108/68; PULSE 70
[2023-04-26 16:32] LABS: Glucose,Whole Blood 246 mg/dL (70-110)
== END 2023-04-26 16:31 | disposition home or self-care (01) ==
LOC: OR 11:00
PROVIDERS: ATTEND Surgery
DX: I12.0 Hypertensive chronic kidney disease with stage 5 chronic kidney disease or end stage renal disease (principal); E11.22 Type 2 diabetes mellitus with diabetic chronic kidney disease; N18.6 End stage renal disease; I25.10 Atherosclerotic heart disease of native coronary artery without angina pectoris; J44.9 Chronic obstructive pulmonary disease, unspecified; K21.9 Gastro-esophageal reflux disease without esophagitis; Z79.4 Long term (current) use of insulin; Z79.82 Long term (current) use of aspirin; Z79.899 Other long term (current) drug therapy; Z99.2 Dependence on renal dialysis; Z95.5 Presence of coronary angioplasty implant and graft; Z79.51 Long term (current) use of inhaled steroids
CPT/HCPCS: 84132; 49324; J2250; J0330; J2710; J2405; J0690; J2001; J3010; J2704; J0665

== ENCOUNTER 2024-01-24 18:56 | Inpatient (IN) | payer MEDICARE, OTHER ==
[2024-01-25 17:01] LABS: Glucose,Whole Blood 256 mg/dL (70-110)
[2024-01-25] MEDS: PIPERACILLIN-TAZOBACTAM 3.375 GM in SODIUM CHLORIDE 0.9% 100 ML IVPB ONE (18:43)
[2024-01-25] MEDS: INSULIN ASPART (NovoLOG) 100 UNIT/ML VIAL SQ SCH (18:43)
[2024-01-25] MEDS: carvediloL 12.5 MG TAB PO SCH (18:43)
[2024-01-25 20:24] LABS: Glucose,Whole Blood 160 mg/dL (70-110)
[2024-01-25] MEDS: hydrOXYzine HCL 25 MG TAB PO SCH (20:42)
[2024-01-25] MEDS: MONTELUKAST 10 MG TAB PO SCH (20:43)
[2024-01-25] MEDS: INSULIN DETEMIR (LEVEMIR) 100 UNIT/ML SYR SQ SCH (20:43)
[2024-01-25] MEDS: ATORVASTATIN 80 MG TAB PO SCH (20:43)
[2024-01-25] MEDS: HYDROcodone/APAP 10-325MG 1 EACH TAB PO PRN (21:03)
[2024-01-25] MEDS: BUDESONIDE 0.5 MG/2 ML NEBU INHALATION SCH (21:37)
[2024-01-26] MEDS: PIPERACILLIN-TAZOBACTAM 3.375 GM in SODIUM CHLORIDE 0.9% 100 ML IVPB SCH ×2 (04:39→16:44)
[2024-01-26 06:57] LABS: Glucose,Whole Blood 119 mg/dL (70-110)
[2024-01-26] MEDS: IPRATROPIUM-ALBUTEROL 3 ML NEB INHALATION PRN (08:18)
[2024-01-26] MEDS: DULoxetine HCL 30 MG CAPSULE.DR PO SCH (08:59)
[2024-01-26] MEDS: MAGNESIUM OXIDE 400 MG TAB PO SCH (08:59)
[2024-01-26] MEDS: LOSARTAN 50 MG TAB PO SCH (09:00)
[2024-01-26] MEDS: SPIRONOLACTONE 25 MG TAB PO SCH (09:01)
[2024-01-26] MEDS: PREGABALIN 75 MG CAP PO SCH (09:02)
[2024-01-26] MEDS: amLODIPine 10 MG TAB PO SCH (09:02)
[2024-01-26] MEDS: SEVELAMER 800 MG TAB PO SCH (09:02)
[2024-01-26] MEDS: PANTOPRAZOLE 40 MG TABLET PO SCH (09:02)
[2024-01-26] MEDS: metOLazone 5 MG TAB PO SCH (09:03)
[2024-01-26] MEDS: ISOSORBIDE MONONITRATE ER 60 MG TAB.ER.24H PO SCH (09:09)
[2024-01-26 11:49] LABS: Glucose,Whole Blood 223 mg/dL (70-110)
[2024-01-26] MEDS: NIFEdipine XL 90 MG TAB.ER.24 PO SCH (13:03)
--- NOTE | 2024-01-26 14:57 | CT ---
EXAMINATION TYPE: CT abdomen pelvis wo con DATE OF EXAM: 01/26/2024 COMPARISON: Outside CT 01/17/2024 HISTORY: 54-year-old male assess, infection at wound site CT DLP: 1221 mGycm. Automated exposure control for dose reduction was used. TECHNIQUE: Contiguous axial scanning of the abdomen and pelvis without IV contrast. Coronal and sagit jeferson reconstructions performed. FINDINGS: Partially visualized median sternotomy. Heart borderline enlarged. No pleural effusion. There is a substernal midline epigastric abdominal wall hernia measuring 7.2 cm wide. This contains s ome omental fat and a protrusion of the anterior left liver lobe. Liver enlarged at 22.9 cm. Otherwise, noncontrast appearance of the liver, gallbladder, adrenal gland s, kidneys, and pancreas show no gross adenopathy. Spleen mildly enlarged at 14.9 cm. No dilated small bowel, free fluid, or free air. Prominent but nonenlarged 1.3 cm portacaval lymph node. No mesenteric or retroperitoneal lymphadenopa thy. There is moderate stool burden. Mild sigmoid diverticulosis. No pericolonic inflammatory change. Redemonstrated focal inflammatory thickening along the right periumbilical region with underlying abn ormal density extending from the skin down to the abdominal wall musculature measuring 4.1 cm wide an d 7.5 cm thick. Previously measuring 7.3 x 4.3 cm. The previous abnormal air seen here on the patient 's outside CT has resolved Moderate circumferential bladder wall thickening may be chronic for the patient and can be correlated clinically. No abnormal fluid collection in the pelvis or pelvic lymphadenopathy. A couple tiny pelv ic phleboliths. Status post L4-L5 posterior and interbody fusion. DISH lower thoracic spine. IMPRESSION: 1. Focal inflammatory soft tissue thickening right periumbilical region extending from the skin down to the abdominal wall musculature. Overall size is relatively similar at 7.5 x 4.1 cm no the previou s air located within this inflammatory collection has resolved. Consider residual phlegmon. 2. Hepatosplenomegaly (liver 22.9 cm and spleen 14.9 cm). 3. Previous median sternotomy. There is a substernal epigastric abdominal wall hernia measuring 7.2 cm wide containing some fat and a protrusion of the anterior left liver lobe. 4. Moderate circumferential bladder wall thickening may be chronic for the patient. Correlate to exc lude cystitis. [facility], , 01/26/2024 2:55 PM
--- NOTE | 2024-01-26 15:40 | P.GSCN ---
History of Present Illness Consult date: 01/26/24 History of present illness: CHIEF COMPLAINT: Abdominal wound HISTORY OF PRESENT ILLNESS: This is a 54-year-old male who presented to the hospital due to a continuous abdominal wound from his previous PD catheter site. Patient had the PD catheter placed in April [address] Anderson and then had it removed in November [address] Summers due to recurrent infections and peritonitis. Patient is now currently getting hemodialysis instead. Patient continues to have serous drainage from the PD catheter site and some tenderness. Patient denies any fevers chills or sweats. PAST MEDICAL HISTORY: See list. End-stage renal disease on hemodialysis, diabetes mellitus PAST SURGICAL HISTORY: See list. CABG MEDICATIONS: See list. ALLERGIES: See list. SOCIAL HISTORY: No illicit drug use. REVIEW OF SYSTEMS: CONSTITUTIONAL: Denies fever or chills. HEENT: Denies blurred vision, vision changes, or eye pain. Denies hemoptysis ENDOCRINE: Denies heat or cold intolerance. CARDIOVASCULAR: Denies chest pain or pressure. RESPIRATORY: No shortness of breath. GASTROINTESTINAL: Please refer to HPI otherwise unremarkable NEURO: Denies history of seizures. PSYCH: No depression or suicidal ideation HEMATOLOGIC: Denies bleeding disorders. LYMPHATIC: The patient denies any lumps and bumps around the neck. GENITOURINARY: Denies any blood in urine or increased urinary frequency. MUSCULOSKELETAL: Denies myalgias. Denies joint swelling. Denies decreased range of motion beyond patients baseline. SKIN: Denies pruitis. Denies rash. PHYSICAL EXAM: VITAL SIGNS: Reviewed GENERAL: Well-developed in no acute distress. HEENT: No sclera icterus. Extraocular movements grossly intact. Moist buccal mucosa. Head is atraumatic, normocephalic. Hears conversational speech. No nasal drainage. NECK: Supple without lymphadenopathy. CHEST: Non-labored respirations and equal bilateral excursions. CARDIOVASCULAR: Palpable 2+ radial pulses. ABDOMEN: Soft. Nondistended. Old peritoneal dialysis catheter site on the right lower abdomen with some minimal serous drainage. Mild tenderness with palpation around the area. There is a firmness noted towards the midline of the abdomen from the old peritoneal dialysis catheter site MUSCULOSKELETAL: No clubbing or cyanosis. NEUROLOGIC: No focal or lateralizing signs. Cranial nerves II through XII grossly intact. PSYCH: Appropriate affect. Alert and oriented to person, place and time. SKIN: Well perfused. Good skin turgor. LABORATORY DATA: No new labs IMAGING: CT scan abdomen pelvis reports focal inflammatory soft tissue thickening right periumbilical region extending from the skin down to the abdominal wall musculature. Overall size is relatively similar at 7.5 x 4.1 cm the previous area located within the inflammatory collection has resolved. Consider residual phlegmon. Previous median sternotomy. There is substernal epigastric abdominal wall hernia measuring 7.2 cm wide containing some fat and protrusion of the anterior left liver lobe. Moderate circumferential bladder wall thickening. ASSESSMENT: 1. Abdominal wall wound at old peritoneal dialysis catheter site. Evidence of phlegmon noted on CT scan 2. Substernal epigastric abdominal wall hernia containing fat and protrusion of the anterior left liver lobe PLAN: -Further recommendations forthcoming per surgeon -Continue local wound care -Antibiotics per infectious disease Physician Market Risk Manager note has been reviewed by physician. Signing provider agrees with the documented findings, assessment, and plan of care. Past Medical History Past Medical History: Coronary Artery Disease (CAD), Diabetes Mellitus, Hyperlipidemia, Hypertension, Renal Disease Additional Past Medical History / Comment(s): Diabetes dx. in 2007, dx. neuropathy bilateral hands/feet, retinopathy bilateral eyes, nephrolithiasis, arthritis bilateral hands/wrists, chronic lumbar back pain, vertigo at times. Last Myocardial Infarction Date:: 11/02/16, 08/02/17 History of Any Multi-Drug Resistant Organisms: MRSA Year Discovered:: 02/05/21 MDRO Source:: MRSA LEG Past Surgical History: Back Surgery, Coronary Bypass/CABG, Heart Catheterization With Stent, Orthopedic Surgery Additional Past Surgical History / Comment(s): Peritoneal Cath Insertion 2022, CABG 07/2017, kidney stone basketing, failed L4-L5 fusion x2, colonoscopy Past Anesthesia/Blood Transfusion Reactions: No Reported Reaction Date of Last Stent Placement:: 2017 Past Psychological History: No Psychological Hx Reported Additional Psychological History / Comment(s): Pt resides with his spouse. He is independent. He has a glucometer. Smoking Status: Former smoker Past Alcohol Use History: None Reported Additional Past Alcohol Use History / Comment(s): Pt started smoking at the age of 17 yrs (1986) and quit in 2018 after open heart. pt reports no longer drinking daily after CABG Past Drug Use History: None Reported - Past Family History Father Family Medical History: Congestive Heart Failure (CHF), Coronary Artery Disease (CAD), CVA/TIA, Myocardial Infarction (PR) Additional Family Medical History / Comment(s): Father at the age of 63 yrs. Pt doesn't recall age of father's PR. Mother Family Medical History: Cancer Additional Family Medical History / Comment(s): Mother had multiple cancers. She is living. Medications and Allergies Home Medications Medication Instructions Recorded Confirmed Type HYDROcodone/APAP 10-325MG [[place] 1 tab PO Q6H PRN 06/13/19 01/25/24 History 10-325] Montelukast [Singulair] 10 mg PO HS 06/13/19 01/25/24 History Ammonium Lactate Cream [Lac-Hydrin 1 applic TOPICAL BID PRN 01/25/24 01/25/24 History 12% Cream] Atorvastatin [Lipitor] 80 mg PO HS 01/25/24 01/25/24 History Budesonide [Pulmicort] 0.5 mg INHALATION RT-BID 01/25/24 01/25/24 History Budesonide/Glycopyr/Formoterol 2 puff INHALATION RT-BID 01/25/24 01/25/24 History [Breztri Aerosphere Inhaler] DULoxetine HCL [Cymbalta] 30 mg PO DAILY 01/25/24 01/25/24 History Ergocalciferol (Vitamin D2) 1,250 mcg PO Q14D 01/25/24 01/25/24 History [Drisdol (50,000 Iu)] INSULIN ASPART (NovoLOG) [NovoLOG 38 units SQ TID-W/MEALS 01/25/24 01/25/24 History (formulary)] INSULIN ASPART (NovoLOG) [NovoLOG See Protocol SQ TID-W/MEALS 01/25/24 01/25/24 History (formulary)] Insulin Glargine [Lantus Vial] 40 units SQ BID 01/25/24 01/25/24 History Ipratropium-Albuterol Nebulize 3 ml INHALATION RT-QID PRN 01/25/24 01/25/24 History [Duoneb 0.5 mg-3 mg/3 ml Soln] Isosorbide Mononitrate ER [Imdur] 60 mg PO DAILY 01/25/24 01/25/24 History Losartan Potassium [Cozaar] 100 mg PO DAILY 01/25/24 01/25/24 History Magnesium Oxide [Magox 400] 400 mg PO DAILY 01/25/24 01/25/24 History NIFEdipine XL [Procardia Xl] 90 mg PO W/LUNCH 01/25/24 01/25/24 History Pantoprazole [Protonix] 40 mg PO AC-BRKFST 01/25/24 01/25/24 History Pregabalin [Lyrica] 75 mg PO DAILY 01/25/24 01/25/24 History Sevelamer [Renvela] 800 mg PO TID-W/MEALS 01/25/24 01/25/24 History Spironolactone [Aldactone] 25 mg PO DAILY 01/25/24 01/25/24 History amLODIPine [Norvasc] 10 mg PO DAILY 01/25/24 01/25/24 History carvediloL 25 mg PO BID 01/25/24 01/25/24 History hydrOXYzine HCL 25 mg PO HS 01/25/24 01/25/24 History metOLazone [Zaroxolyn] 5 mg PO DAILY 01/25/24 01/25/24 History Allergies Allergy/AdvReac Type Severity Reaction Status Date / Time No Known Allergies Allergy Verified 01/25/24 17:33 Surgical - Exam Vital Signs Temp Pulse Resp BP Pulse Ox 98.0 F 76 20 182/90 99 01/25/24 16:35 01/25/24 16:35 01/25/24 16:35 01/25/24 16:35 01/25/24 16:35 Results - Labs Abnormal Lab Results - Last 24 Hours (Table) 01/25/24 01/25/24 01/26/24 Range/Units 17:00 20:20 06:56 POC Glucose (mg/dL) 256 H 160 H 119 H (70-110) mg/dL 01/26/24 Range/Units 11:48 POC Glucose (mg/dL) 223 H (70-110) mg/dL
--- NOTE | 2024-01-26 16:30 | P.GSCN ---
History of Present Illness Consult date: 01/26/24 Reason for Consult: Vascular wound with abscess Requesting physician: Tigre Orozco History of present illness: This a pleasant 54-year-old male with a history of diabetes mellitus, CHF, end- stage renal disease on hemodialysis who previously was on peritoneal dialysis. Patient had a peritoneal dialysis catheter placed in April [address] Green. Apparently patient has had previous hospitalizations at [facility] for peritonitis. He states that he was there at the end of November and had his peritoneal dialysis catheter removed by Dr. Summers. Following that he was discharged and was not instructed on who to follow-up with is Dr. Summers was no longer practicing in the area. He had times of concern with infection and had gone back to [facility] and had seen Dr. Mendez general surgery who recommended patient go to the wound care center. He had been following with the wound care center for abdominal wound from peritoneal dialysis catheter. He had seen Dr. Jackson as well in his office for possible wound care and also had a tunnel catheter placed by Dr. Jackson. Patient was concerned again that he had possible infection because there was a hard area next to previous peritoneal dialysis's surgical site and went to [facility]. He was started on IV antibiotics, Dr. Anderson was notified patient was there and their general surgeon was not willing to treat patient so had recommended a transfer to [facility]. However patient was transferred to [facility] and vascular surgery was consulted for vascular wound with abscess. Patient states he had not been feeling well starting last week Wednesday. He is afebrile. Denies any shortness of breath, chest pain, abdominal pain, nausea or vomiting. Review of Systems A 14 point review systems was completed all pertinent positives and negatives as stated in the HPI. Past Medical History Past Medical History: Coronary Artery Disease (CAD), Diabetes Mellitus, Hyperlipidemia, Hypertension, Renal Disease Additional Past Medical History / Comment(s): Diabetes dx. in 2007, dx. neuropathy bilateral hands/feet, retinopathy bilateral eyes, nephrolithiasis, arthritis bilateral hands/wrists, chronic lumbar back pain, vertigo at times. Last Myocardial Infarction Date:: 11/02/16, 08/02/17 History of Any Multi-Drug Resistant Organisms: MRSA Year Discovered:: 02/05/21 MDRO Source:: MRSA LEG Past Surgical History: Back Surgery, Coronary Bypass/CABG, Heart Catheterization With Stent, Orthopedic Surgery Additional Past Surgical History / Comment(s): Peritoneal Cath Insertion 2022, CABG 07/2017, kidney stone basketing, failed L4-L5 fusion x2, colonoscopy Past Anesthesia/Blood Transfusion Reactions: No Reported Reaction Date of Last Stent Placement:: 2017 Past Psychological History: No Psychological Hx Reported Additional Psychological History / Comment(s): Pt resides with his spouse. He is independent. He has a glucometer. Smoking Status: Former smoker Past Alcohol Use History: None Reported Additional Past Alcohol Use History / Comment(s): Pt started smoking at the age of 17 yrs (1986) and quit in 2017 after open heart. pt reports no longer drinking daily after CABG Past Drug Use History: None Reported - Past Family History Father Family Medical History: Congestive Heart Failure (CHF), Coronary Artery Disease (CAD), CVA/TIA, Myocardial Infarction (CT) Additional Family Medical History / Comment(s): Father at the age of 63 y rs. Pt doesn't recall age of father's CT. Mother Family Medical History: Cancer Additional Family Medical History / Comment(s): Mother had multiple cancers. She is living. Medications and Allergies Home Medications Medication Instructions Recorded Confirmed Type HYDROcodone/APAP 10-325MG [[place] 1 tab PO Q6H PRN 06/13/19 01/25/24 History 10-325] Montelukast [Singulair] 10 mg PO HS 06/13/19 01/25/24 History Ammonium Lactate Cream [Lac-Hydrin 1 applic TOPICAL BID PRN 01/25/24 01/25/24 History 12% Cream] Atorvastatin [Lipitor] 80 mg PO HS 01/25/24 01/25/24 History Budesonide [Pulmicort] 0.5 mg INHALATION RT-BID 01/25/24 01/25/24 History Budesonide/Glycopyr/Formoterol 2 puff INHALATION RT-BID 01/25/24 01/25/24 History [Breztri Aerosphere Inhaler] DULoxetine HCL [Cymbalta] 30 mg PO DAILY 01/25/24 01/25/24 History Ergocalciferol (Vitamin D2) 1,250 mcg PO Q14D 01/25/24 01/25/24 History [Drisdol (50,000 Iu)] INSULIN ASPART (NovoLOG) [NovoLOG 38 units SQ TID-W/MEALS 01/25/24 01/25/24 History (formulary)] INSULIN ASPART (NovoLOG) [NovoLOG See Protocol SQ TID-W/MEALS 01/25/24 01/25/24 History (formulary)] Insulin Glargine [Lantus Vial] 40 units SQ BID 01/25/24 01/25/24 History Ipratropium-Albuterol Nebulize 3 ml INHALATION RT-QID PRN 01/25/24 01/25/24 History [Duoneb 0.5 mg-3 mg/3 ml Soln] Isosorbide Mononitrate ER [Imdur] 60 mg PO DAILY 01/25/24 01/25/24 History Losartan Potassium [Cozaar] 100 mg PO DAILY 01/25/24 01/25/24 History Magnesium Oxide [Magox 400] 400 mg PO DAILY 01/25/24 01/25/24 History NIFEdipine XL [Procardia Xl] 90 mg PO W/LUNCH 01/25/24 01/25/24 History Pantoprazole [Protonix] 40 mg PO AC-BRKFST 01/25/24 01/25/24 History Pregabalin [Lyrica] 75 mg PO DAILY 01/25/24 01/25/24 History Sevelamer [Renvela] 800 mg PO TID-W/MEALS 01/25/24 01/25/24 History Spironolactone [Aldactone] 25 mg PO DAILY 01/25/24 01/25/24 History amLODIPine [Norvasc] 10 mg PO DAILY 01/25/24 01/25/24 History carvediloL 25 mg PO BID 01/25/24 01/25/24 History hydrOXYzine HCL 25 mg PO HS 01/25/24 01/25/24 History metOLazone [Zaroxolyn] 5 mg PO DAILY 01/25/24 01/25/24 History Allergies Allergy/AdvReac Type Severity Reaction Status Date / Time No Known Allergies Allergy Verified 01/25/24 17:33 Surgical - Exam Vital Signs Temp Pulse Resp BP Pulse Ox 98.0 F 76 20 182/90 99 01/25/24 16:35 01/25/24 16:35 01/25/24 16:35 01/25/24 16:35 01/25/24 16:35 General appearance: The patient is alert, oriented, appears in no acute distress. HET: Head is normocephalic and atraumatic. Pupils are equal and reactive. Neck: Supple. Heart: Regular. Lungs: Equal expansion, normal respiratory effort. Abdomen: Soft, nontender, nondistended. Right side of lower abdomen previous peritoneal catheter site with some minimal surrounding erythema and minimal serous drainage. Firmness noted towards midline aspect from peritoneal dialysis site. Extremities: Normal skin color and turgor. Neurological: No focal deficits. Strength and sensation are grossly intact. Results - Labs Abnormal Lab Results - Last 24 Hours (Table) 01/25/24 01/25/24 01/26/24 Range/Units 17:00 20:20 06:56 POC Glucose (mg/dL) 256 H 160 H 119 H (70-110) mg/dL 01/26/24 Range/Units 11:48 POC Glucose (mg/dL) 223 H (70-110) mg/dL - Imaging Comments: CT abdomen pelvis reports focal inflammatory soft tissue thickening right periumbilical region extending from the skin down to the abdominal wall mu sculature. Overall size is relatively similar at 7.5 x 4.1 cm. No previous air located within this inflammatory collection has resolved consider residual phlegmon. Hepatosplenomegaly. Previous median sternotomy. Substernal epigastric abdominal wall hernia measuring 7.2 cm wide containing some fat and a protrusion of the anterior left liver lobe. Moderate circumferential bladder wall thickening may be chronic for the patient. Correlate to exclude cystitis Assessment and Plan Assessment: 1. Previous peritoneal dialysis site abdominal wound 2. Phlegmon noted on CT scan 3. End-stage renal disease on hemodialysis 4. Diabetes mellitus 5. Obese Plan: Recommend general surgery consultation which they are already on consult. Await their recommendations. Continue medical management per primary medical team. Hemodialysis per nephrology. There is no indication for any vascular surgical intervention. Thank you for this consultation, we will sign off at this time. The impression and plan of care has been dictated as directed. I performed a history and examination of this patient, discussed the same with the dictator. I agree with the dictator's note ,documented as a scribe. Any additional findings or plans will be noted.
[2024-01-26 16:56] LABS: Glucose,Whole Blood 99 mg/dL (70-110)
[2024-01-26 19:56] LABS: INR 0.97 sec (0.93-1.11); Prothrombin Time 10.5 sec (9.9-11.9)
[2024-01-26 20:32] LABS: Glucose,Whole Blood 137 mg/dL (70-110)
[2024-01-26] MEDS ORDERED: VANCOMYCIN IV PER PHARMACY 1 EACH MISC MISCELLANE PRN (20:50)
[2024-01-26 21:30] LABS: African American GFR (CKD) 15 (>60 ml/min/1.73 sqM); Non-African American GFR(CKD) 13 (>60 ml/min/1.73 sqM)
[2024-01-26] MEDS: VANCOMYCIN 1,750 MG in SODIUM CHLORIDE 0.9% 500 ML 500 ML IVPB ONE (22:17)
[2024-01-27] MEDS: traZODone HCL 100 MG TAB PO SCH (00:58)
--- NOTE | 2024-01-27 01:52 | HP ---
HISTORY AND PHYSICAL HISTORY OF PRESENT ILLNESS: A 54-year-old white male, transferred from [facility] after having a peritoneal dialysis catheter infection, status post Dr. Anderson removing peritoneal dialysis catheter post 2 or 3 weeks ago. He has had infection since. He has been seen at the wound clinic. He had an increased swelling, redness, and more opening pockets inside the wound, seen on CAT scan and ultrasound. Infectious Disease recommended transfer over here to Dr. Anderson consult, which we have done. Started back on his home medicines as well as IV antibiotics. Wait for cultures. Wait for Infectious Disease and consult with surgeon vascular over here. PAST MEDICAL HISTORY: Sleep apnea, asthma, COPD, diastolic heart failure. He is on permanent dialysis through the regular catheter. HOME MEDICATIONS: 1. Procardia XL 90 daily. 2. Protonix 40 daily. 3. Lyrica 75 daily. 4. Renvela 800 t.i.d. 5. Spironolactone 25 daily. 6. 25 at night. 7. Insulin Levemir 40 units subcu b.i.d. 38 units t.i.d. with meals. 8. Atarax 25 daily. 9. [place] 10 q.6. 10.Cymbalta 30 daily. 11.Singulair 10 mg daily. 12.Protonix 40 daily. 13. 100 t.i.d. REVIEW OF SYSTEMS: A 14-point review of systems otherwise negative. OBJECTIVE: VITAL SIGNS: Temp 98.3, pulse rate 60s, blood pressure 120s to 130s over 80s to 90s, O2 of 96%. CARDIOVASCULAR: S1, S2. LUNGS: Clear. GI: Soft. Abdomen is distended. He has a lower right lower quadrant wound about a centimeter in size with some swelling medially and laterally of it with some tenderness to palpation. No significant drainage or redness. HEMATOLOGIC: Negative for Homans. 2+ edema PSYCH: Anxious, nervous. ASSESSMENT: Diabetic wound infection, status post peritoneal port, end-stage renal disease, insulin- dependent diabetes mellitus, obstructive sleep apnea, hypertension, chronic obstructive pulmonary disease, asthma, morbid obesity. Continue current treatment. Prognosis guarded. Please see further orders. Wait for consults and CAT scan. Repeat CAT scan to be done. Infectious Disease in consult for possible wound debridement. MMODL / IJN: [id number] /
--- NOTE | 2024-01-27 07:15 | P.CONS ---
History of Present Illness - Reason for Consult Consult date: 01/26/24 Abdominal wound Requesting physician: iTgre Orozco - Chief Complaint Abdominal wound and pain x days - History of Present Illness Patient is a 54-year-old male with a past medical history significant for Coronary Artery Disease (CAD), Diabetes Mellitus, Hyperlipidemia, Hypertension, Renal Disease, patient is currently on hemodialysis through the right IJ dialysis catheter patient previously did have a peritoneal dialysis catheter placement in April 2023 and apparently the patient did have a multiple episodes of peritonitis associated with it patient did have peritoneal dialysis catheter removed and leaking around [facility] end of November and the patient apparently did have a area of hardness where his peritoneal dialysis catheter was previously there concerning for infection apparently the patient did have a CAT scan done there we did shows area of phlegmon but no drainable abscess and I was not able to drain it and apparently surgical team at [facility] was not willing to take care of the patient hence patient has been transferred to [facility] for further treatment he was started on Zosyn infectious he was consulted for further management of antibiotic therapy on presentation to the hospital the patient has been afebrile and denies high-grade fever or any chills has been complaining of pain to the right lower abdominal area to be dull aching to sharp moderate intensity without radiation eventually was slight amount of drainage has been cultured by the nursing staff, patient currently do not have the blood work, infectious was consulted for abdominal wound Review of Systems Positive point and negatives has been mentioned in the HPI, complete review of systems was performed and all other systems are negative Past Medical History Past Medical History: Coronary Artery Disease (CAD), Diabetes Mellitus, Hyperlipidemia, Hypertension, Renal Disease Additional Past Medical History / Comment(s): Diabetes dx. in 2007, dx. neuropa thy bilateral hands/feet, retinopathy bilateral eyes, nephrolithiasis, arthritis bilateral hands/wrists, chronic lumbar back pain, vertigo at times. Last Myocardial Infarction Date:: 11/02/16, 08/02/17 History of Any Multi-Drug Resistant Organisms: MRSA Year Discovered:: 02/05/21 MDRO Source:: MRSA LEG Past Surgical History: Back Surgery, Coronary Bypass/CABG, Heart Catheterization With Stent, Orthopedic Surgery Additional Past Surgical History / Comment(s): Peritoneal Cath Insertion 2022, CABG 07/2017, kidney stone basketing, failed L4-L5 fusion x2, colonoscopy Past Anesthesia/Blood Transfusion Reactions: No Reported Reaction Date of Last Stent Placement:: 2017 Past Psychological History: No Psychological Hx Reported Additional Psychological History / Comment(s): Pt resides with his spouse. He is independent. He has a glucometer. Smoking Status: Former smoker Past Alcohol Use History: None Reported Additional Past Alcohol Use History / Comment(s): Pt started smoking at the age of 17 yrs (1986) and quit in 2018 after open heart. pt reports no longer drinki ng daily after CABG Past Drug Use History: None Reported - Past Family History Father Family Medical History: Congestive Heart Failure (CHF), Coronary Artery Disease (CAD), CVA/TIA, Myocardial Infarction (HI) Additional Family Medical History / Comment(s): Father at the age of 63 yrs. Pt doesn't recall age of father's HI. Mother Family Medical History: Cancer Additional Family Medical History / Comment(s): Mother had multiple cancers. She is living. Medications and Allergies Home Medications Medication Instructions Recorded Confirmed Type HYDROcodone/APAP 10-325MG [[place] 1 tab PO Q6H PRN 06/13/19 01/25/24 History 10-325] Montelukast [Singulair] 10 mg PO HS 06/13/19 01/25/24 History Ammonium Lactate Cream [Lac-Hydrin 1 applic TOPICAL BID PRN 01/25/24 01/25/24 Hi story 12% Cream] Atorvastatin [Lipitor] 80 mg PO HS 01/25/24 01/25/24 History Budesonide [Pulmicort] 0.5 mg INHALATION RT-BID 01/25/24 01/25/24 History Budesonide/Glycopyr/Formoterol 2 puff INHALATION RT-BID 01/25/24 01/25/24 History [Breztri Aerosphere Inhaler] DULoxetine HCL [Cymbalta] 30 mg PO DAILY 01/25/24 01/25/24 History Ergocalciferol (Vitamin D2) 1,250 mcg PO Q14D 01/25/24 01/25/24 History [Drisdol (50,000 Iu)] INSULIN ASPART (NovoLOG) [NovoLOG 38 units SQ TID-W/MEALS 01/25/24 01/25/24 History (formulary)] INSULIN ASPART (NovoLOG) [NovoLOG See Protocol SQ TID-W/MEALS 01/25/24 01/25/24 History (formulary)] Insulin Glargine [Lantus Vial] 40 units SQ BID 01/25/24 01/25/24 History Ipratropium-Albuterol Nebulize 3 ml INHALATION RT-QID PRN 01/25/24 01/25/24 History [Duoneb 0.5 mg-3 mg/3 ml Soln] Isosorbide Mononitrate ER [Imdur] 60 mg PO DAILY 01/25/24 01/25/24 History Losartan Potassium [Cozaar] 100 mg PO DAILY 01/25/24 01/25/24 History Magnesium Oxide [Magox 400] 400 mg PO DAILY 01/25/24 01/25/24 History NIFEdipine XL [Procardia Xl] 90 mg PO W/LUNCH 01/25/24 01/25/24 History Pantoprazole [Protonix] 40 mg PO AC-BRKFST 01/25/24 01/25/24 History Pregabalin [Lyrica] 75 mg PO DAILY 01/25/24 01/25/24 History Sevelamer [Renvela] 800 mg PO TID-W/MEALS 01/25/24 01/25/24 History Spironolactone [Aldactone] 25 mg PO DAILY 01/25/24 01/25/24 History amLODIPine [Norvasc] 10 mg PO DAILY 01/25/24 01/25/24 History carvediloL 25 mg PO BID 01/25/24 01/25/24 History hydrOXYzine HCL 25 mg PO HS 01/25/24 01/25/24 History metOLazone [Zaroxolyn] 5 mg PO DAILY 01/25/24 01/25/24 History Allergies Allergy/AdvReac Type Severity Reaction Status Date / Time No Known Allergies Allergy Verified 01/25/24 17:33 Physical Exam Vitals: Vital Signs Temp Pulse Pulse Resp BP Pulse Ox 01/26/24 08:31 70 01/26/24 08:18 66 01/26/24 06:55 97.4 F L 64 16 139/80 98 01/26/24 01:49 98.1 F 66 16 112/69 92 L 01/25/24 20:00 98 F 72 16 168/78 99 01/25/24 16:35 98.0 F 76 20 182/90 99 Intake and Output 01/25/24 01/26/24 01/26/24 22:59 06:59 14:59 Intake Total 100 Balance 100 Intake: Intake, IV Titration 100 Amount Piperacillin-Tazobactam 3 100 .375 gm In Sodium Chloride 0.9% 100 ml @ 200 mls/hr IVPB ONCE ONE Rx#:[id number] Other: # Voids 3 Weight 141.8 kg 108 kg GENERAL DESCRIPTION: Middle-aged male lying in bed, no distress. No tachypnea or accessory muscle of respiration use. HEENT: Shows Pallor , no scleral icterus. Oral mucous membrane is dry. No pharyngeal erythema or thrush NECK: Trachea central, no thyromegaly. LUNGS: Unlabored breathing. Clear to auscultation anteriorly. No wheeze or crackle. HEART: S1, S2, regular rate and rhythm. No loud murmur ABDOMEN: Soft, lower abdominal did have an area of induration with a superficial wound minimal drainage on the dressing EXTREMITIES: No edema of feet. SKIN: No rash, no masses palpable. NEUROLOGICAL: The patient is awake, alert, oriented x3, mood and affect normal. Results CBC & Chem 7: 01/26/24 21:07 Labs: Abnormal Lab Results - Last 24 Hours (Table) 01/25/24 01/25/24 01/26/24 Range/Units 17:00 20:20 06:56 POC Glucose (mg/dL) 256 H 160 H 119 H (70-110) mg/dL Assessment and Plan (1) Open abdominal wall wound Current Visit: Yes Status: Acute Code(s): S31.109A - UNSP OPN WND ABD WALL, UNSP Q W/O PENET PERIT CAV, INIT SNOMED Code(s): 739489256 (2) Abdominal wall abscess Current Visit: Yes Status: Acute Code(s): L02.211 - CUTANEOUS ABSCESS OF ABDOMINAL WALL SNOMED Code(s): 10582903 Plan: 1patient presenting to the hospital with lower abdominal pain and duration and apparently small drainage at that has been the site of previous PD catheter which has been removed with concern for abscess cellulitis failing treatment, we will need to cover for both gram-positive as well as gram-negative pathogen. 2local culture has been obtained results will be followed. 3patient is on Zosyn we will add vancomycin pharmacy to dose. 4await surgical evaluation and possible debridement and deep culture. We will follow on clinical condition and cultures to further adjust medication if needed Thank you for this consultation we will follow the patient along with you Dictation was produced using [employer] dictation software. please excuse any grammatical, word or spelling errors. Time with Patient: Greater than 30
[2024-01-27 07:24] LABS: Glucose,Whole Blood 324 mg/dL (70-110)
[2024-01-27 08:31] LABS: Basophils # (A) 0.04 X 10*3/uL (0.00-0.10); Basophils % (A) 0.5 %; Eosinophils # (A) 0.16 X 10*3/uL (0.04-0.35); Eosinophils % (A) 2.1 %; HCT 31.8 % (39.6-50.0); HGB 9.9 g/dL (13.0-17.0); Lymphocytes # (A) 1.04 X 10*3/uL (0.90-5.00); Lymphocytes % (A) 13.6 %; MCH 29.6 pg (27.0-32.0); MCHC 31.1 g/dL (32.0-37.0); MCV 95.2 FL (80.0-97.0); Mean Platelet Volume 12.6 FL (9.5-12.2); Monocytes # (A) 1.25 X 10*3/uL (0.20-1.00); Monocytes % (A) 16.4 %; NRBC Per 100 WBC 0 X 10*3/uL (0.00-0.01); Neutrophils # (A) 5.08 X 10*3/uL (1.80-7.70); Neutrophils % (A) 66.6 %; Platelet Count 102 X 10*3/uL (140-440); RBC 3.34 X 10*6/uL (4.40-5.60); RDW 15.7 % (11.5-14.5); WBC 7.63 X 10*3/uL (4.50-10.00)
[2024-01-27 09:10] LABS: ALT 16 U/L (10-49); AST 17 U/L (14-35); Albumin 3.5 g/dL (3.8-4.9); Albumin/Globulin Ratio 1.67 Ratio (1.60-3.17); Alkaline Phosphatase 112 U/L (41-126); BUN/Creat Ratio 13.29 Ratio (12.00-20.00); Blood Urea Nitrogen 65.1 mg/dL (9.0-27.0); Calcium 8.4 mg/dL (8.7-10.3); Carbon Dioxide 18.7 mmol/L (21.6-31.8); Chloride 105 mmol/L (96-109); Globulin 2.1 g/dL (1.6-3.3); Glucose 275 mg/dL (70-110); Potassium 4.3 mmol/L (3.5-5.5); Sodium 138 mmol/L (135-145); Total Bilirubin 0.3 mg/dL (0.3-1.2); Total Protein 5.6 g/dL (6.2-8.2)
--- NOTE | 2024-01-27 12:16 | P.NPCON ---
History of Present Illness - Reason for Consult end stage renal disease - History of Present Illness patient is a 54-year-old male with end-stage renal disease currently on hemodialysis on a Wednesday schedule. Patient was transferred from [facility] for surgical evaluation. He has had abdominal wound/abscess up to her removal of PD catheter. Maintained on antibiotics. No significant complaints today. Patient is seen on hemodialysis. Tolerating treatment well. Review of Systems as per HPI Past Medical History Past Medical History: Coronary Artery Disease (CAD), Diabetes Mellitus, Hyperlipidemia, Hypertension, Renal Disease Additional Past Medical History / Comment(s): Diabetes dx. in 2007, dx. neuropathy bilateral hands/feet, retinopathy bilateral eyes, nephrolithiasis, arthritis bilateral hands/wrists, chronic lumbar back pain, vertigo at times. Last Myocardial Infarction Date:: 11/02/16, 08/02/17 History of Any Multi-Drug Resistant Organisms: MRSA Date of last positivie culture/infection: 02/05/21 MDRO Source:: MRSA LEG Past Surgical History: Back Surgery, Coronary Bypass/CABG, Heart Catheterization With Stent, Orthopedic Surgery Additional Past Surgical History / Comment(s): Peritoneal Cath Insertion , CABG 07/2017, kidney stone basketing, failed L4-L5 fusion x2, colonoscopy Past Anesthesia/Blood Transfusion Reactions: No Reported Reaction Date of Last Stent Placement:: 2017 Past Psychological History: No Psychological Hx Reported Additional Psychological History / Comment(s): Pt resides with his spouse. He is independent. He has a glucometer. Smoking Status: Former smoker Past Alcohol Use History: None Reported Additional Past Alcohol Use History / Comment(s): Pt started smoking at the age of 17 yrs (1986) and quit in 2017 after open heart. pt reports no longer drinking daily after CABG Past Drug Use History: None Reported - Past Family History Father Family Medical History: Congestive Heart Failure (CHF), Coronary Artery Disease (CAD), CVA/TIA, Myocardial Infarction (MT) Additional Family Medical History / Comment(s): Father at the age of 63 yrs. Pt doesn't recall age of father's MT. Mother Family Medical History: Cancer Additional Family Medical History / Comment(s): Mother had multiple cancers. She is living. Medications and Allergies Home Medications Medication Instructions Recorded Confirmed Type HYDROcodone/APAP 10-325MG [Palmer 1 tab PO Q6H PRN 06/13/19 01/25/24 History 10-325] Montelukast [Singulair] 10 mg PO HS 06/13/19 01/25/24 History Ammonium Lactate Cream [Lac-Hydrin 1 applic TOPICAL BID PRN 01/25/24 01/25/24 History 12% Cream] Atorvastatin [Lipitor] 80 mg PO HS 01/25/24 01/25/24 History Budesonide [Pulmicort] 0.5 mg INHALATION RT-BID 01/25/24 01/25/24 History Budesonide/Glycopyr/Formoterol 2 puff INHALATION RT-BID 01/25/24 01/25/24 History [Breztri Aerosphere Inhaler] DULoxetine HCL [Cymbalta] 30 mg PO DAILY 01/25/24 01/25/24 History Ergocalciferol (Vitamin D2) 1,250 mcg PO Q14D 01/25/24 01/25/24 History [Drisdol (50,000 Iu)] INSULIN ASPART (NovoLOG) [NovoLOG 38 units SQ TID-W/MEALS 01/25/24 01/25/24 History (formulary)] INSULIN ASPART (NovoLOG) [NovoLOG See Protocol SQ TID-W/MEALS 01/25/24 01/25/24 History (formulary)] Insulin Glargine [Lantus Vial] 40 units SQ BID 01/25/24 01/25/24 History Ipratropium-Albuterol Nebulize 3 ml INHALATION RT-QID PRN 01/25/24 01/25/24 History [Duoneb 0.5 mg-3 mg/3 ml Soln] Isosorbide Mononitrate ER [Imdur] 60 mg PO DAILY 01/25/24 01/25/24 History Losartan Potassium [Cozaar] 100 mg PO DAILY 01/25/24 01/25/24 History Magnesium Oxide [Magox 400] 400 mg PO DAILY 01/25/24 01/25/24 History NIFEdipine XL [Procardia Xl] 90 mg PO W/LUNCH 01/25/24 01/25/24 History Pantoprazole [Protonix] 40 mg PO AC-BRKFST 01/25/24 01/25/24 History Pregabalin [Lyrica] 75 mg PO DAILY 01/25/24 01/25/24 History Sevelamer [Renvela] 800 mg PO TID-W/MEALS 01/25/24 01/25/24 History Spironolactone [Aldactone] 25 mg PO DAILY 01/25/24 01/25/24 History amLODIPine [Norvasc] 10 mg PO DAILY 01/25/24 01/25/24 History carvediloL 25 mg PO BID 01/25/24 01/25/24 History hydrOXYzine HCL 25 mg PO HS 01/25/24 01/25/24 History metOLazone [Zaroxolyn] 5 mg PO DAILY 01/25/24 01/25/24 History Allergies Allergy/AdvReac Type Severity Reaction Status Date / Time No Known Allergies Allergy Verified 01/25/24 17:33 Physical Exam Vitals: Vital Signs Temp Pulse Resp BP Pulse Ox 01/27/24 08:13 73 109/66 01/27/24 07:53 97.7 F 71 18 99/62 97 01/27/24 01:18 97.7 F 65 18 119/66 98 01/26/24 20:00 97.6 F 64 16 151/83 97 01/26/24 12:36 65 133/74 100 Intake and Output 01/26/24 01/27/24 01/27/24 22:59 06:59 14:59 Intake Total 700 590 Balance 700 590 Intake: Intake, IV Titration 100 Amount Piperacillin-Tazobactam 3 100 .375 gm In Sodium Chloride 0.9% 100 ml @ 25 mls/hr IVPB Q12H [facility] Rx# :[id number] Oral 600 590 Other: # Voids 2 2 # Bowel Movements 0 Weight 109.5 kg on examination patient is awake, comfortable, no acute distress. alert oriented 3. Sleepy but arousable Abdomen soft obese Examination of lower extremity shows no significant edema NUTRIENT MANAGEMENT SPECIALIST exam grossly intact Results - Lab Results Most recent lab results Calcium 8.4 mg/dL (8.7-10.3) L 01/27/24 03:14 01/27/24 03:14 01/27/24 03:14 Assessment and Plan Assessment: 1. End-stage renal disease on hemodialysis on a Wednesday schedule 2. Abdominal wound/abscessmaintained on antibiotics and being followed by surgery 3. CK D mineral bone disorder 4. Anemia of chronic disease Plan: maintain hemodialysis on Wednesday schedule. Antibiotics as per ID continue Renvela with meals Thank you for the consultation. We will continue to follow the patient with you during his hospitalization.
[2024-01-27 12:32] LABS: Glucose,Whole Blood 192 mg/dL (70-110)
--- NOTE | 2024-01-27 13:26 | P.PN ---
Subjective Progress Note Date: 01/27/24 CHIEF COMPLAINT: Abdominal wound HISTORY OF PRESENT ILLNESS: Patient continues to have drainage from the abdominal wound at the old PD catheter site. Patient with serosanguineous drainage. Dressing was changed once yesterday. CT scan reported focal inflammatory soft tissue thickening right periumbilical region extending from the skin down to the abdominal wall musculature. Overall size is relatively similar. The previous area located within the inflammatory collection has resolved. Consider residual phlegmon. Hepatosplenomegaly. Substernal epigastric abdominal wall hernia measuring 7.2 cm wide containing some fat and protrusion of the anterior left lower lobe. PHYSICAL EXAM: VITAL SIGNS: Reviewed GENERAL: Well-developed in no acute distress. HEENT: No sclera icterus. Extraocular movements grossly intact. Moist buccal mucosa. Head is atraumatic, normocephalic. Hears conversational speech. No nasal drainage. NECK: Supple without lymphadenopathy. CHEST: Non-labored respirations and equal bilateral excursions. CARDIOVASCULAR: Palpable 2+ radial pulses. ABDOMEN: Soft. Obese. Nondistended. Serosanguineous drainage from old PD catheter site. Mild tenderness with palpation. No significant erythema. Area is softer than yesterday. MUSCULOSKELETAL: No clubbing or cyanosis. NEUROLOGIC: No focal or lateralizing signs. Cranial nerves II through XII grossly intact. PSYCH: Appropriate affect. Alert and oriented to person, place and time. SKIN: Well perfused. Good skin turgor. ASSESSMENT: 1. Abdominal wall wound at old peritoneal dialysis catheter site. Evidence of phlegmon noted on CT scan 2. Substernal epigastric abdominal wall hernia containing fat and protrusion of the anterior left liver lobe 3. Moderate protein calorie malnutrition PLAN: -No surgical intervention planned -Continue antibiotics -Continue local wound care -Recommend Glucerna protein supplement twice a day to promote wound healing Physician Technical Solutions Engineer note has been reviewed by physician. Signing provider agrees with the documented findings, assessment, and plan of care. Objective - Vital Signs Vital signs: Vital Signs Temp 97.7 F 01/27/24 07:53 Pulse 73 01/27/24 08:13 Resp 18 01/27/24 07:53 BP 109/66 01/27/24 08:13 Pulse Ox 97 01/27/24 07:53 FiO2 Intake & Output 01/26/24 01/27/24 01/27/24 18:59 06:59 18:59 Intake Total 700 590 Balance 700 590 Weight 109.5 kg Intake: Intake, IV Titration 100 Amount Piperacillin-Tazobactam 3 100 .375 gm In Sodium Chloride 0.9% 100 ml @ 25 mls/hr IVPB Q12H [facility] Rx# :[id number] Oral 600 590 Other: # Voids 2 2 # Bowel Movements 0 - Labs CBC & Chem 7: 01/27/24 03:14 01/27/24 03:14 Labs: Abnormal Lab Results - Last 24 Hours (Table) 01/26/24 01/26/24 01/26/24 Range/Units 15:25 20:31 21:07 RBC (4.40-5.60) X 10*6/uL Hgb (13.0-17.0) g/dL Hct (39.6-50.0) % MCHC (32.0-37.0) g/dL RDW (11.5-14.5) % Plt Count (140-440) X 10*3/uL MPV (9.5-12.2) FL Immature Gran # (0.00-0.04) X 10*3/uL Monocytes # (0.20-1.00) X 10*3/uL ESR 30 H (0-20) mm/Hr Carbon Dioxide (21.6-31.8) mmol/L Anion Gap (4.00-12.00) mmol/L BUN (9.0-27.0) mg/dL Creatinine 4.76 H (0.66-1.25) mg/dL Est GFR (CKD-EPI) (>=60) Glucose (70-110) mg/dL POC Glucose (mg/dL) 137 H (70-110) mg/dL Calcium (8.7-10.3) mg/dL Total Protein (6.2-8.2) g/dL Albumin (3.8-4.9) g/dL 01/27/24 01/27/24 01/27/24 Range/Units 03:14 03:14 07:03 RBC 3.34 L (4.40-5.60) X 10*6/uL Hgb 9.9 L (13.0-17.0) g/dL Hct 31.8 L (39.6-50.0) % MCHC 31.1 L (32.0-37.0) g/dL RDW 15.7 H (11.5-14.5) % Plt Count 102 L (140-440) X 10*3/uL MPV 12.6 H (9.5-12.2) FL Immature Gran # 0.06 H (0.00-0.04) X 10*3/uL Monocytes # 1.25 H (0.20-1.00) X 10*3/uL ESR (0-20) mm/Hr Carbon Dioxide 18.7 L (21.6-31.8) mmol/L Anion Gap 14.30 H (4.00-12.00) mmol/L BUN 65.1 H (9.0-27.0) mg/dL Creatinine 4.9 H (0.66-1.25) mg/dL Est GFR (CKD-EPI) 13 L (>=60) Glucose 275 H (70-110) mg/dL POC Glucose (mg/dL) 324 H (70-110) mg/dL Calcium 8.4 L (8.7-10.3) mg/dL Total Protein 5.6 L (6.2-8.2) g/dL Albumin 3.5 L (3.8-4.9) g/dL 01/27/24 Range/Units 12:30 RBC (4.40-5.60) X 10*6/uL Hgb (13.0-17.0) g/dL Hct (39.6-50.0) % MCHC (32.0-37.0) g/dL RDW (11.5-14.5) % Plt Count (140-440) X 10*3/uL MPV (9.5-12.2) FL Immature Gran # (0.00-0.04) X 10*3/uL Monocytes # (0.20-1.00) X 10*3/uL ESR (0-20) mm/Hr Carbon Dioxide (21.6-31.8) mmol/L Anion Gap (4.00-12.00) mmol/L BUN (9.0-27.0) mg/dL Creatinine (0.66-1.25) mg/dL Est GFR (CKD-EPI) (>=60) Glucose (70-110) mg/dL POC Glucose (mg/dL) 192 H (70-110) mg/dL Calcium (8.7-10.3) mg/dL Total Protein (6.2-8.2) g/dL Albumin (3.8-4.9) g/dL Microbiology - Last 24 Hours (Table) 01/25/24 18:55 Gram Stain - Preliminary Abdomen Wound Culture - Preliminary
--- NOTE | 2024-01-27 16:05 | P.PN ---
Subjective Progress Note Date: 01/27/24 Principal diagnosis: Reason for follow-up is abdominal wall cellulitis Patient is a 54-year-old male with a past medical history significant for Coronary Artery Disease (CAD), Diabetes Mellitus, Hyperlipidemia, Hypertension, Renal Disease, patient is currently on hemodialysis through the right IJ dialysis catheter patient previously did have a peritoneal dialysis cat heter placement in April 2023 subsequently discontinued and not developing an area of induration to that site concerning for phlegmon/abscess. On today's evaluation that is 01/27/2024,the patient remains to be afebrile, patient is on room air not requiring supplemental oxygen and denies any short ness of breath no chest pain or cough.Patient denies having any nausea or vomiting, still complaining of pain at the previous PD catheter site no worsening drainage. Patient white count 7.63, creatinine is 4.9 cultures are currently pending Objective - Vital Signs Vital signs: Vital Signs Temp 97.6 F 01/27/24 14:38 Pulse 67 01/27/24 14:38 Resp 16 01/27/24 14:38 BP 156/76 01/27/24 14:38 Pulse Ox 98 01/27/24 13:26 FiO2 Intake & Output 01/26/24 01/27/24 01/27/24 18:59 06:59 18:59 Intake Total 700 590 400 Output Total 4400 Balance 700 590 -4000 Weight 109.5 kg Intake: Intake, IV Titration 100 Amount Piperacillin-Tazobactam 3 100 .375 gm In Sodium Chloride 0.9% 100 ml @ 25 mls/hr IVPB Q12H [facility] Rx# :[id number] Oral 600 590 Hemodialysis 400 Output: Hemodialysis 2400 Hemodialysis Net Amount 1999 Other: # Voids 2 2 # Bowel Movements 0 - Exam GENERAL DESCRIPTION: Middle-age male lying in bed in no distress RESPIRATORY SYSTEM: Unlabored breathing , decreased breath sounds at bases HEART: S1 S2 regular rate and rhythm , ABDOMEN: Soft , no tenderness EXTREMITIES: No edema feet - Labs CBC & Chem 7: 01/27/24 03:14 01/27/24 03:14 Labs: Abnormal Lab Results - Last 24 Hours (Table) 01/26/24 01/26/24 01/26/24 Range/Units 15:25 20:31 21:07 RBC (4.40-5.60) X 10*6/uL Hgb (13.0-17.0) g/dL Hct (39.6-50.0) % MCHC (32.0-37.0) g/dL RDW (11.5-14.5) % Plt Count (140-440) X 10*3/uL MPV (9.5-12.2) FL Immature Gran # (0.00-0.04) X 10*3/uL Monocytes # (0.20-1.00) X 10*3/uL ESR 30 H (0-20) mm/Hr Carbon Dioxide (21.6-31.8) mmol/L Anion Gap (4.00-12.00) mmol/L BUN (9.0-27.0) mg/dL Creatinine 4.76 H (0.66-1.25) mg/dL Est GFR (CKD-EPI) (>=60) Glucose (70-110) mg/dL POC Glucose (mg/dL) 137 H (70-110) mg/dL Calcium (8.7-10.3) mg/dL Total Protein (6.2-8.2) g/dL Albumin (3.8-4.9) g/dL 01/27/24 01/27/24 01/27/24 Range/Units 03:14 03:14 07:03 RBC 3.34 L (4.40-5.60) X 10*6/uL Hgb 9.9 L (13.0-17.0) g/dL Hct 31.8 L (39.6-50.0) % MCHC 31.1 L (32.0-37.0) g/dL RDW 15.7 H (11.5-14.5) % Plt Count 102 L (140-440) X 10*3/uL MPV 12.6 H (9.5-12.2) FL Immature Gran # 0.06 H (0.00-0.04) X 10*3/uL Monocytes # 1.25 H (0.20-1.00) X 10*3/uL ESR (0-20) mm/Hr Carbon Dioxide 18.7 L (21.6-31.8) mmol/L Anion Gap 14.30 H (4.00-12.00) mmol/L BUN 65.1 H (9.0-27.0) mg/dL Creatinine 4.9 H (0.66-1.25) mg/dL Est GFR (CKD-EPI) 13 L (>=60) Glucose 275 H (70-110) mg/dL POC Glucose (mg/dL) 324 H (70-110) mg/dL Calcium 8.4 L (8.7-10.3) mg/dL Total Protein 5.6 L (6.2-8.2) g/dL Albumin 3.5 L (3.8-4.9) g/dL 01/27/24 Range/Units 12:30 RBC (4.40-5.60) X 10*6/uL Hgb (13.0-17.0) g/dL Hct (39.6-50.0) % MCHC (32.0-37.0) g/dL RDW (11.5-14.5) % Plt Count (140-440) X 10*3/uL MPV (9.5-12.2) FL Immature Gran # (0.00-0.04) X 10*3/uL Monocytes # (0.20-1.00) X 10*3/uL ESR (0-20) mm/Hr Carbon Dioxide (21.6-31.8) mmol/L Anion Gap (4.00-12.00) mmol/L BUN (9.0-27.0) mg/dL Creatinine (0.66-1.25) mg/dL Est GFR (CKD-EPI) (>=60) Glucose (70-110) mg/dL POC Glucose (mg/dL) 192 H (70-110) mg/dL Calcium (8.7-10.3) mg/dL Total Protein (6.2-8.2) g/dL Albumin (3.8-4.9) g/dL Microbiology - Last 24 Hours (Table) 01/25/24 18:55 Gram Stain - Preliminary Abdomen Wound Culture - Preliminary Assessment and Plan (1) Open abdominal wall wound Current Visit: Yes Status: Acute Code(s): S31.109A - UNSP OPN WND ABD WALL, UNSP Q W/O PENET PERIT CAV, INIT SNOMED Code(s): 624100744 (2) Abdominal wall abscess Current Visit: Yes Status: Acute Code(s): L02.211 - CUTANEOUS ABSCESS OF ABDOMINAL WALL SNOMED Code(s): 13548306 Plan: 1patient presenting to the hospital with lower abdominal pain and duration and apparently small drainage at that has been the site of previous PD catheter which has been removed with concern for abscess cellulitis failing treatment, we will need to cover for both gram-positive as well as gram-negative pathogen. 2local culture has been obtained which are currently pending 3patient has been eval by surgery not recommending any drainage continue with the Vanco Zosyn while waiting for the culture to finalize Dictation was produced using test company dictation software. please excuse any grammatical, word or spelling errors. Time with Patient: Less than 30
[2024-01-27 17:20] LABS: Glucose,Whole Blood 148 mg/dL (70-110)
[2024-01-27 20:20] LABS: Glucose,Whole Blood 124 mg/dL (70-110)
[2024-01-27] MEDS: VANCOMYCIN 1,750 MG in SODIUM CHLORIDE 0.9% 500 ML 500 ML IVPB ONE (20:34)
[2024-01-28 03:35] LABS: African American GFR (CKD) 20 (>60 ml/min/1.73 sqM); Non-African American GFR(CKD) 17 (>60 ml/min/1.73 sqM)
[2024-01-28 07:05] LABS: Glucose,Whole Blood 151 mg/dL (70-110)
--- NOTE | 2024-01-28 09:59 | P.PN ---
Subjective Progress Note Date: 01/28/24 CHIEF COMPLAINT: Abdominal wound HISTORY OF PRESENT ILLNESS: Patient resting comfortably. No new complaints. Afebrile. Blood sugar 151 WBC 7.63 PHYSICAL EXAM: VITAL SIGNS: Reviewed GENERAL: Well-developed in no acute distress. HEENT: No sclera icterus. Extraocular movements grossly intact. Moist buccal mucosa. Head is atraumatic, normocephalic. Hears conversational speech. No nasal drainage. NECK: Supple without lymphadenopathy. CHEST: Non-labored respirations and equal bilateral excursions. CARDIOVASCULAR: Palpable 2+ radial pulses. ABDOMEN: Soft. Obese. Nondistended. Serosanguineous drainage from old PD catheter site. Mild tenderness with palpation. No significant erythema. MUSCULOSKELETAL: No clubbing or cyanosis. NEUROLOGIC: No focal or lateralizing signs. Cranial nerves II through XII grossly intact. PSYCH: Appropriate affect. Alert and oriented to person, place and time. SKIN: Well perfused. Good skin turgor. ASSESSMENT: 1. Abdominal wall wound at old peritoneal dialysis catheter site. Evidence of phlegmon noted on CT scan 2. Substernal epigastric abdominal wall hernia containing fat and protrusion of the anterior left liver lobe 3. Moderate protein calorie malnutrition PLAN: -No surgical intervention planned -Continue antibiotics -Continue local wound care -Continue protein supplement twice a day to promote wound healing -Surgical service will sign off. Please call with any questions or concerns. Physician Slat Twister note has been reviewed by physician. Signing provider agrees with the documented findings, assessment, and plan of care. Objective - Vital Signs Vital signs: Vital Signs Temp 97.8 F 01/28/24 07:56 Pulse 66 01/28/24 07:56 Resp 18 01/28/24 07:56 BP 122/66 01/28/24 07:56 Pulse Ox 96 01/28/24 07:56 FiO2 Intake & Output 01/27/24 01/28/24 01/28/24 18:59 06:59 18:59 Intake Total 1480 590 Output Total 4400 Balance -2920 590 Weight 114 kg Intake: Oral 1080 590 Hemodialysis 400 Output: Hemodialysis 2400 Hemodialysis Net Amount 2000 Other: # Voids 1 - Labs CBC & Chem 7: 01/27/24 03:14 01/28/24 02:56 Labs: Abnormal Lab Results - Last 24 Hours (Table) 01/27/24 01/27/24 01/27/24 Range/Units 12:30 17:19 20:18 Creatinine (0.66-1.25) mg/dL POC Glucose (mg/dL) 192 H 148 H 124 H (70-110) mg/dL 01/28/24 01/28/24 Range/Units 02:56 07:04 Creatinine 3.81 H (0.66-1.25) mg/dL POC Glucose (mg/dL) 151 H (70-110) mg/dL Microbiology - Last 24 Hours (Table) 01/25/24 18:55 Anaerobic Culture - Preliminary Abdomen 01/26/24 19:55 Urine Culture - Final Urine,Voided 01/25/24 18:55 Gram Stain - Final Abdomen Wound Culture - Final
[2024-01-28 11:57] LABS: Glucose,Whole Blood 113 mg/dL (70-110)
--- NOTE | 2024-01-28 14:54 | P.PN ---
Subjective Progress Note Date: 01/28/24 Principal diagnosis: Reason for follow-up is abdominal wall cellulitis Patient is a 54-year-old male with a past medical history significant for Coronary Artery Disease (CAD), Diabetes Mellitus, Hyperlipidemia, Hypertension, Renal Disease, patient is currently on hemodialysis through the right IJ dialysis catheter patient previously did have a peritoneal dialysis cat heter placement in April 2023 subsequently discontinued and not developing an area of induration to that site concerning for phlegmon/abscess. On today's evaluation that is 01/28/2024, the patient continues to be afebrile, the patient is on room air and breathing comfortably, the Pt denies having any chest pain or cough, the patient abdominal pain slightly decreased intensity no further drainage no nausea vomiting or diarrhea. Patient vancomycin and #22.1 superficial culture has been negative so far with anaerobe cultures pending Objective - Vital Signs Vital signs: Vital Signs Temp 97.8 F 01/28/24 07:56 Pulse 66 01/28/24 07:56 Resp 18 01/28/24 07:56 BP 122/66 01/28/24 07:56 Pulse Ox 96 01/28/24 07:56 FiO2 Intake & Output 01/27/24 01/28/24 01/28/24 18:59 06:59 18:59 Intake Total 1480 590 Output Total 4400 Balance -2920 590 Weight 114 kg Intake: Oral 1080 590 Hemodialysis 400 Output: Hemodialysis 2400 Hemodialysis Net Amount 2000 Other: # Voids 1 - Exam GENERAL DESCRIPTION: Middle-age male lying in bed in no distress RESPIRATORY SYSTEM: Unlabored breathing , decreased breath sounds at bases HEART: S1 S2 regular rate and rhythm , ABDOMEN: Soft , no tenderness EXTREMITIES: No edema feet - Labs CBC & Chem 7: 01/27/24 03:14 01/28/24 02:56 Labs: Abnormal Lab Results - Last 24 Hours (Table) 01/27/24 01/27/24 01/28/24 Range/Units 17:19 20:18 02:56 Creatinine 3.81 H (0.66-1.25) mg/dL POC Glucose (mg/dL) 148 H 124 H (70-110) mg/dL 01/28/24 01/28/24 Range/Units 07:04 11:55 Creatinine (0.66-1.25) mg/dL POC Glucose (mg/dL) 151 H 113 H (70-110) mg/dL Microbiology - Last 24 Hours (Table) 01/25/24 18:55 Anaerobic Culture - Preliminary Abdomen 01/26/24 19:55 Urine Culture - Final Urine,Voided 01/25/24 18:55 Gram Stain - Final Abdomen Wound Culture - Final Assessment and Plan (1) Open abdominal wall wound Current Visit: Yes Status: Acute Code(s): S31.109A - UNSP OPN WND ABD WALL, UNSP Q W/O PENET PERIT CAV, INIT SNOMED Code(s): 117773101 (2) Abdominal wall abscess Current Visit: Yes Status: Acute Code(s): L02.211 - CUTANEOUS ABSCESS OF ABDOMINAL WALL SNOMED Code(s): 20293898 Plan: 1patient presenting to the hospital with lower abdominal pain and duration and apparently small drainage at that has been the site of previous PD catheter which has been removed with concern for abscess cellulitis failing treatment, we will need to cover for both gram-positive as well as gram-negative pathogen. 2local culture has been negative so far anaerobe cultures currently pending continue Zosyn discontinue vancomycin Dictation was produced using [employer] dictation software. please excuse any grammatical, word or spelling errors. Time with Patient: Less than 30
[2024-01-28 14:56] LABS: Hepatitis B Surface Antigen Nonreactive (Nonreactive)
[2024-01-28 17:08] LABS: Glucose,Whole Blood 200 mg/dL (70-110)
[2024-01-28] MEDS: LACTULOSE 20 GM/30 ML CUP PO PRN (19:20)
--- NOTE | 2024-01-28 20:08 | P.PN ---
Subjective Patient is seen for follow-up for end-stage renal disease. No plans for intervention from surgical standpoint. No significant complaints today however patient stated he has had drainage on and off from the wound. Tolerating oral intake. Objective - Vital Signs Vital signs: Vital Signs Temp 97.6 F 01/28/24 13:45 Pulse 66 01/28/24 13:45 Resp 20 01/28/24 13:45 BP 131/69 01/28/24 13:45 Pulse Ox 98 01/28/24 13:45 FiO2 Intake & Output 01/28/24 01/28/24 01/29/24 06:59 18:59 06:59 Intake Total 590 776 Balance 590 776 Weight 114 kg Intake: Oral 590 776 Other: # Voids 1 1 # Bowel Movements 1 - Exam on examination patient is awake, comfortable, no acute distress. alert oriented 3. Sleepy but arousable Abdomen soft obese, mass noted in the abdomen, tender at times Examination of lower extremity shows no significant edema CHAPLAINCY exam grossly intact - Labs CBC & Chem 7: 01/27/24 03:14 01/28/24 02:56 Labs: Abnormal Lab Results - Last 24 Hours (Table) 01/27/24 01/27/24 01/28/24 Range/Units 03:14 20:18 02:56 Creatinine 3.81 H (0.66-1.25) mg/dL POC Glucose (mg/dL) 124 H (70-110) mg/dL Hep Bs Antibody A (Negative) 01/28/24 01/28/24 01/28/24 Range/Units 07:04 11:55 17:06 Creatinine (0.66-1.25) mg/dL POC Glucose (mg/dL) 151 H 113 H 200 H (70-110) mg/dL Hep Bs Antibody (Negative) Microbiology - Last 24 Hours (Table) 01/25/24 18:55 Anaerobic Culture - Preliminary Abdomen 01/26/24 19:55 Urine Culture - Final Urine,Voided 01/25/24 18:55 Gram Stain - Final Abdomen Wound Culture - Final Assessment and Plan Assessment: 1. End-stage renal disease on hemodialysis on a Wednesday schedule 2. Abdominal wound/abscess, maintained on antibiotics and being followed by surgery 3. CK D mineral bone disorder 4. Anemia of chronic disease Plan: maintain hemodialysis on Wednesday schedule. Antibiotics as per ID continue Renvela with meals
[2024-01-28 20:14] LABS: Glucose,Whole Blood 158 mg/dL (70-110)
[2024-01-29 07:07] LABS: Glucose,Whole Blood 141 mg/dL (70-110)
[2024-01-29] MEDS ORDERED: VANCOMYCIN 1,750 MG in SODIUM CHLORIDE 0.9% 500 ML 500 ML IVPB ONE (10:00)
[2024-01-29 11:57] LABS: Glucose,Whole Blood 115 mg/dL (70-110)
--- NOTE | 2024-01-29 13:40 | PN ---
PROGRESS NOTE SUBJECTIVE: The patient is requesting to get an incision and drainage on his air fluid level abscess type spot after the peritoneal dialysis catheter removed. Dr. Rosa had seen him for infections. He is on vancomycin. Superficial cultures are negative. OBJECTIVE: VITAL SIGNS: Temp 97.8, pulse 66, blood pressure 122/66, respiratory rate 16 to 18, O2 of 96%. ENDOCRINE: BMI is over 40. GENERAL: Well developed, no acute distress. HEART: S1, S2. EXTREMITIES: No edema. LABORATORY DATA: Hemoglobin 9.9. ASSESSMENT: Open abdominal wall wound, abdominal wall abscess covered for both gram-positive and negative bacteria. Local cultures have been negative so far. Anaerobics were pending. Continue with Zosyn. Discontinue vancomycin. Prognosis guarded. Please see further orders. MMODL / IJN: [id number] /
--- NOTE | 2024-01-29 14:33 | P.PN ---
Subjective Progress Note Date: 01/29/24 Patient is seen for follow-up for end-stage renal disease. No plans for intervention from surgical standpoint. No new complaints, tolerated HD today. Awake, comfortable, no acute distress. alert oriented 3. Sleepy but arousable Abdomen soft obese, mass noted in the abdomen, tender at times Examination of lower extremity shows no significant edema [employer] exam grossly intact Objective - Vital Signs Vital signs: Vital Signs Temp 97.4 F L 01/29/24 07:07 Pulse 63 01/29/24 07:07 Resp 16 01/29/24 07:07 BP 143/64 01/29/24 07:07 Pulse Ox 95 01/29/24 08:32 FiO2 Intake & Output 01/28/24 01/29/24 01/29/24 18:59 06:59 18:59 Intake Total 776 590 Balance 776 590 Weight 147 kg Intake: Oral 776 590 Other: # Voids 1 1 # Bowel Movements 1 - Labs CBC & Chem 7: 01/27/24 03:14 01/28/24 02:56 Labs: Abnormal Lab Results - Last 24 Hours (Table) 01/27/24 01/28/24 01/28/24 Range/Units 03:14 11:55 17:06 POC Glucose (mg/dL) 113 H 200 H (70-110) mg/dL Hep Bs Antibody A (Negative) 01/28/24 01/29/24 Range/Units 20:13 07:05 POC Glucose (mg/dL) 158 H 141 H (70-110) mg/dL Hep Bs Antibody (Negative) Assessment and Plan Assessment: 1. End-stage renal disease on hemodialysis on a Wednesday schedule 2. Abdominal wound/abscess, maintained on antibiotics and being followed by surgery 3. CKD mineral bone disorder 4. Anemia of chronic disease Plan: maintain hemodialysis on Wednesday schedule. Antibiotics as per ID continue Renvela with meals
--- NOTE | 2024-01-29 15:58 | P.PN ---
Subjective Progress Note Date: 01/29/24 Principal diagnosis: Reason for follow-up is abdominal wall cellulitis Patient is a 54-year-old male with a past medical history significant for Coronary Artery Disease (CAD), Diabetes Mellitus, Hyperlipidemia, Hypertension, Renal Disease, patient is currently on hemodialysis through the right IJ dialysis catheter patient previously did have a peritoneal dialysis cat heter placement in April 2023 subsequently discontinued and not developing an area of induration to that site concerning for phlegmon/abscess. On today's evaluation that is 01/29/2024, Patient is afebrile patient is currently on room air and denies having any shortness of breath, the patient denies any chest pain or cough, the patient denies any nausea vomiting still, some abdominal pain but no worsening of diarrhea. No new lab has been obtained today Objective - Vital Signs Vital signs: Vital Signs Temp 98.1 F 01/29/24 13:31 Pulse 79 01/29/24 13:31 Resp 20 01/29/24 13:31 BP 170/90 01/29/24 13:31 Pulse Ox 95 01/29/24 13:31 FiO2 Intake & Output 01/28/24 01/29/24 01/29/24 18:59 06:59 18:59 Intake Total 776 590 Balance 776 590 Weight 147 kg Intake: Oral 776 590 Other: # Voids 1 1 # Bowel Movements 1 - Exam GENERAL DESCRIPTION: Middle-age male lying in bed in no distress RESPIRATORY SYSTEM: Unlabored breathing , decreased breath sounds at bases HEART: S1 S2 regular rate and rhythm , ABDOMEN: Soft , no tenderness EXTREMITIES: No edema feet - Labs CBC & Chem 7: 01/27/24 03:14 01/28/24 02:56 Labs: Abnormal Lab Results - Last 24 Hours (Table) 01/28/24 01/28/24 01/29/24 Range/Units 17:06 20:13 07:05 POC Glucose (mg/dL) 200 H 158 H 141 H (70-110) mg/dL 01/29/24 Range/Units 11:56 POC Glucose (mg/dL) 115 H (70-110) mg/dL Assessment and Plan (1) Open abdominal wall wound Current Visit: Yes Status: Acute Code(s): S31.109A - UNSP OPN WND ABD WALL, UNSP Q W/O PENET PERIT CAV, INIT SNOMED Code(s): 483186985 (2) Abdominal wall abscess Current Visit: Yes Status: Acute Code(s): L02.211 - CUTANEOUS ABSCESS OF ABDOMINAL WALL SNOMED Code(s): 17052356 Plan: 1patient presenting to the hospital with lower abdominal pain and duration and apparently small drainage at that has been the site of previous PD catheter which has been removed with concern for abscess cellulitis failing treatment, we will need to cover for both gram-positive as well as gram-negative pathogen. 2local culture has been negative so far anaerobe cultures currently pending care has been discussed in detail with the nephrology yesterday will do is repeat CT for a follow-up to see if the area has decreased in size versus liquefied into an abscess question concern answered continue with Zosyn Dictation was produced using [employer] dictation software. please excuse any grammatical, word or spelling errors. Time with Patient: Less than 30
[2024-01-29] MEDS: IOPAMIDOL CONTRAST (ORAL USE) VIAL PO PRN (16:06)
[2024-01-29 17:11] LABS: Glucose,Whole Blood 183 mg/dL (70-110)
--- NOTE | 2024-01-29 17:54 | P.PN ---
Subjective Progress Note Date: 01/29/24 Patient reports area is firm. CT scan reviewed. Patient also reports no active drainage. No fevers or chills. At this time, no acute surgical invention needed. Continue with current management. Objective - Vital Signs Vital signs: Vital Signs Temp 98.1 F 01/29/24 13:31 Pulse 79 01/29/24 13:31 Resp 20 01/29/24 13:31 BP 170/90 01/29/24 13:31 Pulse Ox 95 01/29/24 13:31 FiO2 Intake & Output 01/28/24 01/29/24 01/29/24 18:59 06:59 18:59 Intake Total 386 460 6997 Balance 041 315 1488 Weight 147 kg Intake: Intake, IV Titration 100 Amount Piperacillin-Tazobactam 3 100 .375 gm In Sodium Chloride 0.9% 100 ml @ 25 mls/hr IVPB Q12H [facility] Rx# :[id number] Oral [id number] Other: # Voids 1 1 1 # Bowel Movements 1 1 - Labs CBC & Chem 7: 01/27/24 03:14 01/28/24 02:56 Labs: Abnormal Lab Results - Last 24 Hours (Table) 01/28/24 01/29/24 01/29/24 Range/Units 20:13 07:05 11:56 POC Glucose (mg/dL) 158 H 141 H 115 H (70-110) mg/dL 01/29/24 Range/Units 17:10 POC Glucose (mg/dL) 183 H (70-110) mg/dL
--- NOTE | 2024-01-29 17:59 | CT ---
EXAMINATION TYPE: CT abdomen pelvis wo con CT DLP: 1896.7 mGycm, Automated exposure control for dose reduction was used. DATE OF EXAM: 01/29/2024 5:45 PM COMPARISON: 01/26/2024 CLINICAL INDICATION: Male, 54 years old with history of Abdominal wall abscess at the previous dialys is; Abdominal wall abscess at the previous dialysis catheter site. TECHNIQUE: Axial CT abdomen pelvis wo con;Sagittal and coronal reformats were created on a separate workstation. Contrast used: mL of , (none if empty) Oral contrast used: with Oral Contrast (none if empty) FINDINGS: LOWER CHEST: There is protrusion of the liver parenchyma left hepatic lobe into the suspected midline upper abdominal hernia. ABDOMEN LIVER: Unremarkable GALLBLADDER AND BILE DUCTS: Unremarkable. PANCREAS: Unremarkable. SPLEEN: Unremarkable. ADRENAL GLANDS: Unremarkable. KIDNEYS AND URETERS: No evidence of hydronephrosis or renal calculus. The ureters are unremarkable. PELVIS BLADDER: Bladder ortiz are felt to be within normal limits. REPRODUCTIVE: Unremarkable. ABDOMEN & PELVIS STOMACH AND BOWEL: No evidence of bowel obstruction. PERITONEUM/RETROPERITONEUM: No evidence of pneumoperitoneum or free fluid. VASCULATURE: Mild atherosclerotic calcifications are present throughout the abdominal aorta and its b ranches. No evidence of aortic aneurysm. MUSCULOSKELETAL: No acute osseous abnormalities LYMPH NODES: No gross evidence for lymphadenopathy. SOFT TISSUE/ABDOMINAL WALL: Unchanged appearance of the phlegmonous changes extending from the right lateral aspect of the umbilicus. No organizing fluid identified no subcutaneous gas identified. There is diffuse soft tissue edema along the skin surface. Findings suggestive of cellulitis. IMPRESSION: 1. Unchanged appearance of the phlegmonous changes extending from the right lateral aspect of the um bilicus. No evidence for organizing fluid collection or abscess. Continued surveillance recommended w ith CT imaging after course of antibiotics. 2. No acute intra-abdominal process. [facility], , 01/29/2024 5:56 PM
[2024-01-29 20:02] LABS: Glucose,Whole Blood 185 mg/dL (70-110)
[2024-01-30 07:43] LABS: Glucose,Whole Blood 174 mg/dL (70-110)
[2024-01-30 11:04] LABS: Glucose,Whole Blood 195 mg/dL (70-110)
[2024-01-30 12:03] LABS: Glucose,Whole Blood 221 mg/dL (70-110)
--- NOTE | 2024-01-30 12:23 | P.PN ---
Subjective Progress Note Date: 01/30/24 Patient is seen for follow-up for end-stage renal disease. No plans for intervention from surgical standpoint. No new complaints. Awake, comfortable, no acute distress. alert oriented 3. Sleepy but arousable Abdomen soft obese, mass noted in the abdomen, tender at times Examination of lower extremity shows no significant edema [employer] exam grossly intact Objective - Vital Signs Vital signs: Vital Signs Temp 98.0 F 01/30/24 07:27 Pulse 64 01/30/24 07:27 Resp 16 01/30/24 07:27 BP 111/60 01/30/24 07:27 Pulse Ox 98 01/30/24 08:34 FiO2 Intake & Output 01/29/24 01/30/24 01/30/24 18:59 06:59 18:59 Intake Total 1838 1600 Output Total 4400 Balance 1838 -2800 Weight 147.5 kg Intake: Intake, IV Titration 100 Amount Piperacillin-Tazobactam 3 100 .375 gm In Sodium Chloride 0.9% 100 ml @ 25 mls/hr IVPB Q12H [facility] Rx# :[id number] Oral 1738 1200 Hemodialysis 400 Output: Hemodialysis 2400 Hemodialysis Net Amount 2000 Other: # Voids 1 3 # Bowel Movements 1 - Labs CBC & Chem 7: 01/27/24 03:14 01/28/24 02:56 Labs: Abnormal Lab Results - Last 24 Hours (Table) 01/29/24 01/29/24 01/29/24 Range/Units 11:56 17:10 20:01 POC Glucose (mg/dL) 115 H 183 H 185 H (70-110) mg/dL 01/30/24 Range/Units 07:41 POC Glucose (mg/dL) 174 H (70-110) mg/dL Microbiology - Last 24 Hours (Table) 01/25/24 18:55 Anaerobic Culture - Final Abdomen Assessment and Plan Assessment: 1. End-stage renal disease on hemodialysis on a Wednesday schedule 2. Abdominal wound/abscess, maintained on antibiotics and being followed by surgery 3. CKD mineral bone disorder 4. Anemia of chronic disease Plan: Maintain hemodialysis on Wednesday schedule. Antibiotics as per ID continue Renvela with meals
[2024-01-30 17:18] LABS: Glucose,Whole Blood 105 mg/dL (70-110)
[2024-01-30 20:26] LABS: Glucose,Whole Blood 113 mg/dL (70-110)
[2024-01-31 07:20] LABS: Glucose,Whole Blood 113 mg/dL (70-110)
--- NOTE | 2024-01-31 08:30 | P.PN ---
Subjective Patient is seen in follow-up for end-stage renal disease. Maintained on hemodialysis on Wednesday schedule. No active complaints. Resting in bed. Vital signs are stable. General: No acute distress. HEENT: Head exam is unremarkable. LUNGS: No audible rhonchi or wheezes. HEART: Rate and Rhythm are regular. ABDOMEN: Obese, nontender. EXTREMITITES: No edema. Objective - Vital Signs Vital signs: Vital Signs Temp 97.5 F L 01/31/24 07:34 Pulse 92 01/31/24 08:17 Resp 20 01/31/24 07:34 BP 135/79 01/31/24 07:34 Pulse Ox 96 01/31/24 08:05 FiO2 Intake & Output 01/30/24 01/31/24 01/31/24 18:59 06:59 18:59 Intake Total 1100 Balance 1100 Weight 150.8 kg Intake: Oral 1100 - Labs CBC & Chem 7: 01/27/24 03:14 01/28/24 02:56 Labs: Abnormal Lab Results - Last 24 Hours (Table) 01/30/24 01/30/24 01/30/24 Range/Units 11:01 12:01 20:20 POC Glucose (mg/dL) 195 H 221 H 113 H (70-110) mg/dL 01/31/24 Range/Units 07:19 POC Glucose (mg/dL) 113 H (70-110) mg/dL Assessment and Plan Plan: Assessment: 1. End-stage renal disease maintained on hemodialysis on Wednesday schedule. 2. Abdominal wound/abscess being followed by surgery and infectious disease. On IV antibiotics. 3. Hypertension with chronic kidney disease. Stable. 4. Diabetes mellitus. 5. Chronic kidney disease mineral bone disease maintained on Renvela. 6. Anemia of chronic kidney disease. Plan: Hemodialysis tomorrow. Add Aranesp.
[2024-01-31] MEDS: DARBEPOETIN ALFA 40 MCG/0.4 ML SYRINGE SQ SCH (11:48)
[2024-01-31 12:34] LABS: Glucose,Whole Blood 182 mg/dL (70-110)
[2024-01-31 14:35] LABS: Glucose,Whole Blood 168 mg/dL (70-110)
[2024-01-31 16:57] LABS: Glucose,Whole Blood 115 mg/dL (70-110)
[2024-01-31 17:29] LABS: African American GFR (CKD) 12 (>60 ml/min/1.73 sqM); Anion Gap 12 mmol/L; Blood Urea Nitrogen 63 mg/dL (9-20); Calcium 8.3 mg/dL (8.4-10.2); Carbon Dioxide 22 mmol/L (22-30); Chloride 96 mmol/L (98-107); Glucose 103 mg/dL (74-99); Non-African American GFR(CKD) 10 (>60 ml/min/1.73 sqM); Potassium 4.4 mmol/L (3.5-5.1); Sodium 130 mmol/L (137-145)
[2024-01-31 20:19] LABS: Glucose,Whole Blood 157 mg/dL (70-110)
[2024-01-31 21:28] LABS: HCT 28.5 % (39.6-50.0); HGB 9.3 g/dL (13.0-17.0); MCH 29.5 pg (27.0-32.0); MCHC 32.6 g/dL (32.0-37.0); MCV 90.5 FL (80.0-97.0); Mean Platelet Volume 12.8 FL (9.5-12.2); NRBC Per 100 WBC 0 X 10*3/uL (0.00-0.01); Platelet Count 91 X 10*3/uL (140-440); RBC 3.15 X 10*6/uL (4.40-5.60); RDW 15.6 % (11.5-14.5); WBC 8.53 X 10*3/uL (4.50-10.00)
[2024-01-31 21:29] LABS: Basophils # (A) 0.04 X 10*3/uL (0.00-0.10); Basophils % (A) 0.5 %; Eosinophils # (A) 0 X 10*3/uL (0.04-0.35); Eosinophils % (A) 0 %; Lymphocytes % (A) 9.4 %; Monocytes # (A) 1.21 X 10*3/uL (0.20-1.00); Monocytes % (A) 14.2 %; Neutrophils # (A) 6.44 X 10*3/uL (1.80-7.70); Neutrophils % (A) 75.4 %
[2024-02-01 07:19] LABS: Glucose,Whole Blood 213 mg/dL (70-110)
[2024-02-01 08:56] VITALS: BMI 48.9
[2024-02-01 09:14] LABS: ALT 14 U/L (10-49); AST 17 U/L (14-35); Albumin 3.4 g/dL (3.8-4.9); Albumin/Globulin Ratio 1.55 Ratio (1.60-3.17); Alkaline Phosphatase 139 U/L (41-126); BUN/Creat Ratio 10.58 Ratio (12.00-20.00); Blood Urea Nitrogen 65.6 mg/dL (9.0-27.0); Chloride 97 mmol/L (96-109); Globulin 2.2 g/dL (1.6-3.3); Glucose 172 mg/dL (70-110); Sodium 132 mmol/L (135-145); Total Bilirubin 0.4 mg/dL (0.3-1.2); Total Protein 5.6 g/dL (6.2-8.2)
[2024-02-01 10:07] LABS: Basophils # (A) 0.03 X 10*3/uL (0.00-0.10); Basophils % (A) 0.4 %; Eosinophils # (A) 0.14 X 10*3/uL (0.04-0.35); HGB 9.5 g/dL (13.0-17.0); Lymphocytes # (A) 0.81 X 10*3/uL (0.90-5.00); Lymphocytes % (A) 11.5 %; MCH 30.1 pg (27.0-32.0); MCHC 32.8 g/dL (32.0-37.0); MCV 91.8 FL (80.0-97.0); Mean Platelet Volume 12.8 FL (9.5-12.2); Monocytes # (A) 0.99 X 10*3/uL (0.20-1.00); Monocytes % (A) 14.1 %; NRBC Per 100 WBC 0 X 10*3/uL (0.00-0.01); Neutrophils # (A) 5.01 X 10*3/uL (1.80-7.70); Neutrophils % (A) 71.1 %; Platelet Count 78 X 10*3/uL (140-440); RBC 3.16 X 10*6/uL (4.40-5.60); RBC Morphology Normal (Normal); RDW 15.7 % (11.5-14.5); WBC 7.04 X 10*3/uL (4.50-10.00)
--- NOTE | 2024-02-01 11:12 | P.PN ---
Subjective Patient is seen in follow-up for end-stage renal disease. Maintained on hemodialysis on Wednesday schedule. No active complaints. Vital signs are stable. General: No acute distress. HEENT: Head exam is unremarkable. LUNGS: No audible rhonchi or wheezes. HEART: Rate and Rhythm are regular. ABDOMEN: Obese, nontender. EXTREMITITES: No edema. Objective - Vital Signs Vital signs: Vital Signs Temp 97.6 F 02/01/24 07:16 Pulse 76 02/01/24 08:17 Resp 16 02/01/24 07:16 BP 114/58 02/01/24 07:16 Pulse Ox 94 L 02/01/24 07:56 FiO2 Intake & Output 01/31/24 02/01/24 02/01/24 18:59 06:59 18:59 Intake Total 540 Balance 540 Weight 150.5 kg 150.5 kg Intake: Oral 540 Other: # Voids 3 - Labs CBC & Chem 7: 02/01/24 04:03 02/01/24 04:03 Labs: Abnormal Lab Results - Last 24 Hours (Table) 01/31/24 01/31/24 01/31/24 Range/Units 12:27 14:33 16:49 RBC 3.15 L (4.40-5.60) X 10*6/uL Hgb 9.3 L (13.0-17.0) g/dL Hct 28.5 L (39.6-50.0) % RDW 15.6 H (11.5-14.5) % Plt Count 91 L (140-440) X 10*3/uL MPV 12.8 H (9.5-12.2) FL Immature Gran # (0.00-0.04) X 10*3/uL Lymphocytes # 0.80 L (0.90-5.00) X 10*3/uL Monocytes # 1.21 H (0.20-1.00) X 10*3/uL Eosinophils # 0 L (0.04-0.35) X 10*3/uL Sodium (137-145) mmol/L Chloride (98-107) mmol/L Carbon Dioxide (21.6-31.8) mmol/L Anion Gap (4.00-12.00) mmol/L BUN (9-20) mg/dL Creatinine (0.66-1.25) mg/dL Est GFR (CKD-EPI) (>=60) BUN/Creatinine Ratio (12.00-20.00) Ratio Glucose (74-99) mg/dL POC Glucose (mg/dL) 182 H 168 H (70-110) mg/dL Calcium (8.4-10.2) mg/dL Alkaline Phosphatase (41-126) U/L Total Protein (6.2-8.2) g/dL Albumin (3.8-4.9) g/dL Albumin/Globulin Ratio (1.60-3.17) Ratio 01/31/24 01/31/24 01/31/24 Range/Units 16:49 16:53 20:18 RBC (4.40-5.60) X 10*6/uL Hgb (13.0-17.0) g/dL Hct (39.6-50.0) % RDW (11.5-14.5) % Plt Count (140-440) X 10*3/uL MPV (9.5-12.2) FL Immature Gran # (0.00-0.04) X 10*3/uL Lymphocytes # (0.90-5.00) X 10*3/uL Monocytes # (0.20-1.00) X 10*3/uL Eosinophils # (0.04-0.35) X 10*3/uL Sodium 130 L (137-145) mmol/L Chloride 96 L (98-107) mmol/L Carbon Dioxide (21.6-31.8) mmol/L Anion Gap (4.00-12.00) mmol/L BUN 63 H (9-20) mg/dL Creatinine 5.67 H (0.66-1.25) mg/dL Est GFR (CKD-EPI) (>=60) BUN/Creatinine Ratio (12.00-20.00) Ratio Glucose 103 H (74-99) mg/dL POC Glucose (mg/dL) 115 H 157 H (70-110) mg/dL Calcium 8.3 L (8.4-10.2) mg/dL Alkaline Phosphatase (41-126) U/L Total Protein (6.2-8.2) g/dL Albumin (3.8-4.9) g/dL Albumin/Globulin Ratio (1.60-3.17) Ratio 02/01/24 02/01/24 02/01/24 Range/Units 04:03 04:03 07:18 RBC 3.16 L (4.40-5.60) X 10*6/uL Hgb 9.5 L (13.0-17.0) g/dL Hct 29.0 L (39.6-50.0) % RDW 15.7 H (11.5-14.5) % Plt Count 78 L (140-440) X 10*3/uL MPV 12.8 H (9.5-12.2) FL Immature Gran # 0.06 H (0.00-0.04) X 10*3/uL Lymphocytes # 0.81 L (0.90-5.00) X 10*3/uL Monocytes # (0.20-1.00) X 10*3/uL Eosinophils # (0.04-0.35) X 10*3/uL Sodium 132 L (137-145) mmol/L Chloride (98-107) mmol/L Carbon Dioxide 21.0 L (21.6-31.8) mmol/L Anion Gap 14.00 H (4.00-12.00) mmol/L BUN 65.6 H (9-20) mg/dL Creatinine 6.2 H (0.66-1.25) mg/dL Est GFR (CKD-EPI) 10 L (>=60) BUN/Creatinine Ratio 10.58 L (12.00-20.00) Ratio Glucose 172 H (74-99) mg/dL POC Glucose (mg/dL) 213 H (70-110) mg/dL Calcium 8.0 L (8.4-10.2) mg/dL Alkaline Phosphatase 139 H (41-126) U/L Total Protein 5.6 L (6.2-8.2) g/dL Albumin 3.4 L (3.8-4.9) g/dL Albumin/Globulin Ratio 1.55 L (1.60-3.17) Ratio Assessment and Plan Plan: Assessment: 1. End-stage renal disease maintained on hemodialysis on Wednesday schedule. 2. Abdominal wound/abscess being followed by surgery and infectious disease. On IV antibiotics. 3. Hypertension with chronic kidney disease. Stable. 4. Diabetes mellitus. 5. Chronic kidney disease mineral bone disease maintained on Renvela. 6. Anemia of chronic kidney disease. On Aranesp. Plan: Hemodialysis today.
[2024-02-01 12:10] LABS: Glucose,Whole Blood 184 mg/dL (70-110)
--- NOTE | 2024-02-01 13:27 | P.PN ---
Subjective Progress Note Date: 01/30/24 Principal diagnosis: Reason for follow-up is abdominal wall cellulitis Patient is a 54-year-old male with a past medical history significant for Coronary Artery Disease (CAD), Diabetes Mellitus, Hyperlipidemia, Hypertension, Renal Disease, patient is currently on hemodialysis through the right IJ dialysis catheter patient previously did have a peritoneal dialysis cat heter placement in April 2023 subsequently discontinued and not developing an area of induration to that site concerning for phlegmon/abscess. On today's evaluation that is 01/30/2024, patient has been afebrile, patient is breathing comfortably and is currently on room air, patient denies having any significant cough no chest pain shortness of breath, patient denies nausea vomiting or diarrhea and no abdominal pain, no new symptoms. No lab draw today patient did have a CT abdominal pelvis completed last evening with evidence of area of induration possible phlegmon but no drainable abscess Objective - Vital Signs Vital signs: Vital Signs Temp 98.0 F 01/30/24 12:19 Pulse 59 L 01/30/24 12:19 Resp 16 01/30/24 12:19 BP 100/61 01/30/24 12:19 Pulse Ox 96 01/30/24 12:19 FiO2 Intake & Output 01/29/24 01/30/24 01/30/24 18:59 06:59 18:59 Intake Total 1838 1600 Output Total 4400 Balance 1838 -2800 Weight 147.5 kg Intake: Intake, IV Titration 100 Amount Piperacillin-Tazobactam 3 100 .375 gm In Sodium Chloride 0.9% 100 ml @ 25 mls/hr IVPB Q12H [facility] Rx# :[id number] Oral 1738 1200 Hemodialysis 400 Output: Hemodialysis 2400 Hemodialysis Net Amount 1999 Other: # Voids 1 3 # Bowel Movements 1 - Exam GENERAL DESCRIPTION: Middle-age male lying in bed in no distress RESPIRATORY SYSTEM: Unlabored breathing , decreased breath sounds at bases HEART: S1 S2 regular rate and rhythm , ABDOMEN: Soft , no tenderness EXTREMITIES: No edema feet - Labs CBC & Chem 7: 02/01/24 04:03 02/01/24 04:03 Labs: Abnormal Lab Results - Last 24 Hours (Table) 01/29/24 01/29/24 01/30/24 Range/Units 17:10 20:01 07:41 POC Glucose (mg/dL) 183 H 185 H 174 H (70-110) mg/dL 01/30/24 01/30/24 Range/Units 11:01 12:01 POC Glucose (mg/dL) 195 H 221 H (70-110) mg/dL Microbiology - Last 24 Hours (Table) 01/25/24 18:55 Anaerobic Culture - Final Abdomen Assessment and Plan (1) Open abdominal wall wound Current Visit: Yes Status: Acute Code(s): S31.109A - UNSP OPN WND ABD WALL, UNSP Q W/O PENET PERIT CAV, INIT SNOMED Code(s): 590444360 (2) Abdominal wall abscess Current Visit: Yes Status: Acute Code(s): L02.211 - CUTANEOUS ABSCESS OF ABDOMINAL WALL SNOMED Code(s): 59857670 Plan: 1patient presenting to the hospital with lower abdominal pain and duration and apparently small drainage at that has been the site of previous PD catheter which has been removed with concern for abscess cellulitis failing treatment, we will need to cover for both gram-positive as well as gram-negative pathogen. 2local culture has been negative so far anaerobe cultures currently pending patient did have a CT abdominal pelvis did not show significant change and no evidence of any drainable abscess may be chronic changes rather than infection especially with a negative culture and normal white count patient has been advised careful observation rather than doing any surgery at this point to which she seemed to have agreed Dictation was produced using [employer] dictation software. please excuse any grammatical, word or spelling errors. Time with Patient: Less than 30
--- NOTE | 2024-02-01 13:28 | P.PN ---
Subjective Progress Note Date: 01/31/24 Principal diagnosis: Reason for follow-up is abdominal wall cellulitis Patient is a 54-year-old male with a past medical history significant for Coronary Artery Disease (CAD), Diabetes Mellitus, Hyperlipidemia, Hypertension, Renal Disease, patient is currently on hemodialysis through the right IJ dialysis catheter patient previously did have a peritoneal dialysis cat heter placement in April 2023 subsequently discontinued and not developing an area of induration to that site concerning for phlegmon/abscess. On today's evaluation that is 01/31/2024, Patient is afebrile this morning patient denies having any chest pain shortness of breath or cough, the patient is breathing comfortably on room air, patient denies any abdominal pain no diarrhea no nausea no vomiting. Patient white count is 8.53, creatinine is 5.67 Objective - Vital Signs Vital signs: Vital Signs Temp 97.5 F L 01/31/24 07:34 Pulse 92 01/31/24 08:17 Resp 20 01/31/24 07:34 BP 135/79 01/31/24 07:34 Pulse Ox 96 01/31/24 08:05 FiO2 Intake & Output 01/30/24 01/31/24 01/31/24 18:59 06:59 18:59 Intake Total 1100 Balance 1100 Weight 150.8 kg Intake: Oral 1100 - Exam GENERAL DESCRIPTION: Middle-age male lying in bed in no distress RESPIRATORY SYSTEM: Unlabored breathing , decreased breath sounds at bases HEART: S1 S2 regular rate and rhythm , ABDOMEN: Soft , no tenderness EXTREMITIES: No edema feet - Labs CBC & Chem 7: 02/01/24 04:03 02/01/24 04:03 Labs: Abnormal Lab Results - Last 24 Hours (Table) 01/30/24 01/31/24 01/31/24 Range/Units 20:20 07:19 12:27 POC Glucose (mg/dL) 113 H 113 H 182 H (70-110) mg/dL Assessment and Plan (1) Open abdominal wall wound Current Visit: Yes Status: Acute Code(s): S31.109A - UNSP OPN WND ABD WALL, UNSP Q W/O PENET PERIT CAV, INIT SNOMED Code(s): 011398591 (2) Abdominal wall abscess Current Visit: Yes Status: Acute Code(s): L02.211 - CUTANEOUS ABSCESS OF ABDOMINAL WALL SNOMED Code(s): 40045901 Plan: 1patient presenting to the hospital with lower abdominal pain and duration and apparently small drainage at that has been the site of previous PD catheter which has been removed with concern for abscess cellulitis failing treatment, we will need to cover for both gram-positive as well as gram-negative pathogen. 2local culture has been negative so far anaerobe cultures currently pending patient did have a CT abdominal pelvis did not show significant change and no evidence of any drainable abscess may be chronic changes rather than infection especially with a negative culture and normal white count patient has been advised careful observation and if any worsening pain redness or fever may need surgical invention at that point, Zosyn can be safely discontinued Dictation was produced using [employer] dictation software. please excuse any grammatical, word or spelling errors.
--- NOTE | 2024-02-01 13:29 | P.PN ---
Subjective Progress Note Date: 02/01/24 Principal diagnosis: Reason for follow-up is abdominal wall cellulitis Patient is a 54-year-old male with a past medical history significant for Coronary Artery Disease (CAD), Diabetes Mellitus, Hyperlipidemia, Hypertension, Renal Disease, patient is currently on hemodialysis through the right IJ dialysis catheter patient previously did have a peritoneal dialysis cat heter placement in April 2023 subsequently discontinued and not developing an area of induration to that site concerning for phlegmon/abscess. On today's evaluation that is 02/01/2024,the patient denies any fever or any chills, patient is complaining of shortness of breath today and is on her 2 L current oxygen patient complaining of feeling feeling up with the fluid and swelling no chest pain no abdominal pain no nausea vomiting or diarrhea. Patient did have a white count of 7.04, and a creatinine of 6.2 Objective - Vital Signs Vital signs: Vital Signs Temp 97.6 F 02/01/24 07:16 Pulse 76 02/01/24 08:17 Resp 16 02/01/24 07:16 BP 114/58 02/01/24 07:16 Pulse Ox 94 L 02/01/24 07:56 FiO2 Intake & Output 01/31/24 02/01/24 02/01/24 18:59 06:59 18:59 Intake Total 540 Balance 540 Weight 150.5 kg 150.5 kg Intake: Oral 540 Other: # Voids 3 - Exam GENERAL DESCRIPTION: Middle-age male lying in bed in no distress RESPIRATORY SYSTEM: Unlabored breathing , decreased breath sounds at bases HEART: S1 S2 regular rate and rhythm , ABDOMEN: Soft , no tenderness EXTREMITIES: No edema feet - Labs CBC & Chem 7: 02/01/24 04:03 02/01/24 04:03 Labs: Abnormal Lab Results - Last 24 Hours (Table) 01/31/24 01/31/24 01/31/24 Range/Units 14:33 16:49 16:49 RBC 3.15 L (4.40-5.60) X 10*6/uL Hgb 9.3 L (13.0-17.0) g/dL Hct 28.5 L (39.6-50.0) % RDW 15.6 H (11.5-14.5) % Plt Count 91 L (140-440) X 10*3/uL MPV 12.8 H (9.5-12.2) FL Immature Gran # (0.00-0.04) X 10*3/uL Lymphocytes # 0.80 L (0.90-5.00) X 10*3/uL Monocytes # 1.21 H (0.20-1.00) X 10*3/uL Eosinophils # 0 L (0.04-0.35) X 10*3/uL Sodium 130 L (137-145) mmol/L Chloride 96 L (98-107) mmol/L Carbon Dioxide (21.6-31.8) mmol/L Anion Gap (4.00-12.00) mmol/L BUN 63 H (9-20) mg/dL Creatinine 5.67 H (0.66-1.25) mg/dL Est GFR (CKD-EPI) (>=60) BUN/Creatinine Ratio (12.00-20.00) Ratio Glucose 103 H (74-99) mg/dL POC Glucose (mg/dL) 168 H (70-110) mg/dL Calcium 8.3 L (8.4-10.2) mg/dL Alkaline Phosphatase (41-126) U/L Total Protein (6.2-8.2) g/dL Albumin (3.8-4.9) g/dL Albumin/Globulin Ratio (1.60-3.17) Ratio 01/31/24 01/31/24 02/01/24 Range/Units 16:53 20:18 04:03 RBC 3.16 L (4.40-5.60) X 10*6/uL Hgb 9.5 L (13.0-17.0) g/dL Hct 29.0 L (39.6-50.0) % RDW 15.7 H (11.5-14.5) % Plt Count 78 L (140-440) X 10*3/uL MPV 12.8 H (9.5-12.2) FL Immature Gran # 0.06 H (0.00-0.04) X 10*3/uL Lymphocytes # 0.81 L (0.90-5.00) X 10*3/uL Monocytes # (0.20-1.00) X 10*3/uL Eosinophils # (0.04-0.35) X 10*3/uL Sodium (137-145) mmol/L Chloride (98-107) mmol/L Carbon Dioxide (21.6-31.8) mmol/L Anion Gap (4.00-12.00) mmol/L BUN (9-20) mg/dL Creatinine (0.66-1.25) mg/dL Est GFR (CKD-EPI) (>=60) BUN/Creatinine Ratio (12.00-20.00) Ratio Glucose (74-99) mg/dL POC Glucose (mg/dL) 115 H 157 H (70-110) mg/dL Calcium (8.4-10.2) mg/dL Alkaline Phosphatase (41-126) U/L Total Protein (6.2-8.2) g/dL Albumin (3.8-4.9) g/dL Albumin/Globulin Ratio (1.60-3.17) Ratio 02/01/24 02/01/24 02/01/24 Range/Units 04:03 07:18 12:08 RBC (4.40-5.60) X 10*6/uL Hgb (13.0-17.0) g/dL Hct (39.6-50.0) % RDW (11.5-14.5) % Plt Count (140-440) X 10*3/uL MPV (9.5-12.2) FL Immature Gran # (0.00-0.04) X 10*3/uL Lymphocytes # (0.90-5.00) X 10*3/uL Monocytes # (0.20-1.00) X 10*3/uL Eosinophils # (0.04-0.35) X 10*3/uL Sodium 132 L (137-145) mmol/L Chloride (98-107) mmol/L Carbon Dioxide 21.0 L (21.6-31.8) mmol/L Anion Gap 14.00 H (4.00-12.00) mmol/L BUN 65.6 H (9-20) mg/dL Creatinine 6.2 H (0.66-1.25) mg/dL Est GFR (CKD-EPI) 10 L (>=60) BUN/Creatinine Ratio 10.58 L (12.00-20.00) Ratio Glucose 172 H (74-99) mg/dL POC Glucose (mg/dL) 213 H 184 H (70-110) mg/dL Calcium 8.0 L (8.4-10.2) mg/dL Alkaline Phosphatase 139 H (41-126) U/L Total Protein 5.6 L (6.2-8.2) g/dL Albumin 3.4 L (3.8-4.9) g/dL Albumin/Globulin Ratio 1.55 L (1.60-3.17) Ratio Assessment and Plan (1) Open abdominal wall wound Current Visit: Yes Status: Acute Code(s): S31.109A - UNSP OPN WND ABD WALL, UNSP Q W/O PENET PERIT CAV, INIT SNOMED Code(s): 198880118 (2) Abdominal wall abscess Current Visit: Yes Status: Acute Code(s): L02.211 - CUTANEOUS ABSCESS OF ABDOMINAL WALL SNOMED Code(s): 38330693 Plan: 1patient presenting to the hospital with lower abdominal pain and duration and apparently small drainage at that has been the site of previous PD catheter which has been removed with concern for abscess cellulitis failing treatment, we will need to cover for both gram-positive as well as gram-negative pathogen. 2local culture has been negative so far anaerobe cultures currently pending patient did have a CT abdominal pelvis did not show significant change and no evidence of any drainable abscess may be chronic changes rather than infection especially with a negative culture and normal white count patient has been advised careful observation and if any worsening pain redness or fever may need surgical invention at that point, I will discontinue Zosyn and monitor the patient closely off antibiotic therapy Dictation was produced using [employer] dictation software. please excuse any grammatical, word or spelling errors. Time with Patient: Less than 30
[2024-02-01 17:02] LABS: Glucose,Whole Blood 77 mg/dL (70-110)
[2024-02-01 20:15] LABS: Glucose,Whole Blood 141 mg/dL (70-110)
[2024-02-02 07:37] LABS: Glucose,Whole Blood 147 mg/dL (70-110)
[2024-02-02] MEDS: metOLazone 5 MG TAB PO SCH (10:07)
[2024-02-02] MEDS: FUROSEMIDE 80 MG TAB PO SCH (10:07)
[2024-02-02 12:03] LABS: Glucose,Whole Blood 78 mg/dL (70-110)
--- NOTE | 2024-02-02 12:16 | P.PN ---
Subjective Patient is seen in follow-up for end-stage renal disease. Maintained on hemodialysis on Wednesday schedule. Complains of scrotal edema. Vital signs are stable. General: No acute distress. HEENT: Head exam is unremarkable. LUNGS: No audible rhonchi or wheezes. HEART: Rate and Rhythm are regular. ABDOMEN: Obese, nontender. EXTREMITITES: No edema. Scrotal edema noted. Objective - Vital Signs Vital signs: Vital Signs Temp 97.9 F 02/02/24 07:29 Pulse 69 02/02/24 07:29 Resp 16 02/02/24 07:29 BP 111/67 02/02/24 07:29 Pulse Ox 96 02/02/24 07:29 FiO2 Intake & Output 02/01/24 02/02/24 02/02/24 18:59 06:59 18:59 Intake Total 1158 Output Total 6500 Balance -5342 Weight 150.5 kg 151.5 kg Intake: Oral 658 Hemodialysis 500 Output: Hemodialysis 3500 Hemodialysis Net Amount 3000 - Labs CBC & Chem 7: 02/01/24 04:03 02/01/24 04:03 Labs: Abnormal Lab Results - Last 24 Hours (Table) 02/01/24 02/02/24 Range/Units 19:58 07:36 POC Glucose (mg/dL) 141 H 147 H (70-110) mg/dL Assessment and Plan Plan: Assessment: 1. End-stage renal disease maintained on hemodialysis on Wednesday schedule. 2. Abdominal wound/abscess being followed by surgery and infectious disease. s/p IV antibiotics. 3. Hypertension with chronic kidney disease. Stable. 4. Diabetes mellitus. 5. Chronic kidney disease mineral bone disease maintained on Renvela. 6. Anemia of chronic kidney disease. On Aranesp. 7. Scrotal edema. Plan: Extra treatment of hemodialysis today mostly for ultrafiltration. Plan for another treatment tomorrow per his outpatient schedule. Resume Lasix. Check scrotal ultrasound.
[2024-02-02 12:55] LABS: Glucose,Whole Blood 79 mg/dL (70-110)
--- NOTE | 2024-02-02 13:19 | US ---
EXAMINATION TYPE: US scrotum with doppler. Grayscale and color Doppler Duplex imaging performed of t emma scrotum. DATE OF EXAM: 02/02/2024 COMPARISON: NONE CLINICAL INDICATION: Male, 54 years old with history of scrotal pain, swelling; scrotal swelling, not ed in recent CT, pt 334lb EXAM MEASUREMENTS: TESTICLES: Right Testicle: 4.8 x 3.2 x 3.4 cm Left Testicle: 5.1 x 3.7 x 3.4 cm EPIDIDYMIS HEAD: Right Epididymis: 1.3 cm Left Epididymis: 1.1 cm Doppler performed to assess for testicular vascularity; good bilateral color flow and waveforms are s een. There is no evidence of testicular torsion. Presence of hydroceles: yes, bilateral Presence of varicoceles: no IMPRESSION: 1. No diagnostic evidence of testicular torsion. 2. Moderate bilateral hydroceles. [facility], , 02/02/2024 1:16 PM
[2024-02-02 16:50] LABS: Glucose,Whole Blood 183 mg/dL (70-110)
[2024-02-02 20:13] LABS: Glucose,Whole Blood 163 mg/dL (70-110)
[2024-02-02] MEDS: DOXYCYCLINE 100 MG CAP PO SCH (20:57)
[2024-02-03 07:25] LABS: Glucose,Whole Blood 175 mg/dL (70-110)
[2024-02-03 08:51] LABS: Basophils # (A) 0.04 X 10*3/uL (0.00-0.10); Basophils % (A) 0.5 %; Eosinophils # (A) 0 X 10*3/uL (0.04-0.35); Eosinophils % (A) 0 %; HCT 27.3 % (39.6-50.0); HGB 8.6 g/dL (13.0-17.0); Lymphocytes # (A) 0.82 X 10*3/uL (0.90-5.00); Lymphocytes % (A) 9.8 %; MCHC 31.5 g/dL (32.0-37.0); MCV 91.9 FL (80.0-97.0); Mean Platelet Volume 12.4 FL (9.5-12.2); Monocytes # (A) 1.42 X 10*3/uL (0.20-1.00); Monocytes % (A) 16.9 %; NRBC Per 100 WBC 0 X 10*3/uL (0.00-0.01); Neutrophils % (A) 72.4 %; Platelet Count 101 X 10*3/uL (140-440); RBC 2.97 X 10*6/uL (4.40-5.60); RDW 16.2 % (11.5-14.5); WBC 8.41 X 10*3/uL (4.50-10.00)
[2024-02-03 09:32] LABS: ALT 13 U/L (10-49); AST 17 U/L (14-35); Albumin 3.5 g/dL (3.8-4.9); Albumin/Globulin Ratio 1.59 Ratio (1.60-3.17); Alkaline Phosphatase 138 U/L (41-126); BUN/Creat Ratio 9.79 Ratio (12.00-20.00); Blood Urea Nitrogen 41.1 mg/dL (9.0-27.0); Calcium 8.1 mg/dL (8.7-10.3); Chloride 100 mmol/L (96-109); Globulin 2.2 g/dL (1.6-3.3); Glucose 189 mg/dL (70-110); Potassium 4.9 mmol/L (3.5-5.5); Sodium 138 mmol/L (135-145); Total Bilirubin 0.4 mg/dL (0.3-1.2); Total Protein 5.7 g/dL (6.2-8.2)
--- NOTE | 2024-02-03 10:25 | P.GSCN ---
History of Present Illness Consult date: 02/03/24 Reason for Consult: Scrotal edema, hydrocele History of present illness: This is a 54-year-old male admitted to the hospital with peritoneal dialysis catheter infection. Urology is consulted for scrotal edema, patient dictated he noticed that over the past 2 weeks after discontinuing his Lasix. Denies any previous history of similar complaints. Denies any previous scrotal surgeries. He did undergo a scrotal ultrasound which showed evidence of moderate size bilateral hydrocele. But no intratesticular pathology. This point he indicated he is having some discomfort but not significant pain. Review of Systems - Constitutional Denies fever, Denies weight loss - EENT Ears, nose, mouth and throat: Denies dysphagia - Cardiovascular Denies chest pain, Denies shortness of breath - Respiratory Denies cough, Denies 7 - Gastrointestinal Reports abdominal pain - Genitourinary Denies kidney stones - Integumentary Denies rash, Denies unusual bruising - Neurological Denies headaches, Denies syncope Past Medical History Past Medical History: Coronary Artery Disease (CAD), Diabetes Mellitus, Hyperlipidemia, Hypertension, Renal Disease Additional Past Medical History / Comment(s): Diabetes dx. in 2007, dx. neuropathy bilateral hands/feet, retinopathy bilateral eyes, nephrolithiasis, arthritis bilateral hands/wrists, chronic lumbar back pain, vertigo at times. Last Myocardial Infarction Date:: 11/02/16, 08/02/17 History of Any Multi-Drug Resistant Organisms: MRSA Year Discovered:: 02/05/21 MDRO Source:: MRSA LEG Past Surgical History: Back Surgery, Coronary Bypass/CABG, Heart Catheterization With Stent, Orthopedic Surgery Additional Past Surgical History / Comment(s): Peritoneal Cath Insertion 2022, CABG 07/2017, kidney stone basketing, failed L4-L5 fusion x2, colonoscopy Past Anesthesia/Blood Transfusion Reactions: No Reported Reaction Date of Last Stent Placement:: 2017 Past Psychological History: No Psychological Hx Reported Additional Psychological History / Comment(s): Pt resides with his spouse. He is independent. He has a glucometer. Smoking Status: Former smoker Past Alcohol Use History: None Reported Additional Past Alcohol Use History / Comment(s): Pt started smoking at the age of 17 yrs (1986) and quit in 2018 after open heart. pt reports no longer drinking daily after CABG Past Drug Use History: None Reported - Past Family History Father Family Medical History: Congestive Heart Failure (CHF), Coronary Artery Disease (CAD), CVA/TIA, Myocardial Infarction ([place]) Additional Family Medical History / Comment(s): Father at the age of 63 yrs. Pt doesn't recall age of father's [place]. Mother Family Medical History: Cancer Additional Family Medical History / Comment(s): Mother had multiple cancers. She is living. Medications and Allergies Home Medications Medication Instructions Recorded Confirmed Type HYDROcodone/APAP 10-325MG [Corry 1 tab PO Q6H PRN 06/13/19 01/25/24 History 10-325] Montelukast [Singulair] 10 mg PO HS 06/13/19 01/25/24 History Ammonium Lactate Cream [Lac-Hydrin 1 applic TOPICAL BID PRN 01/25/24 01/25/24 History 12% Cream] Atorvastatin [Lipitor] 80 mg PO HS 01/25/24 01/25/24 History Budesonide [Pulmicort] 0.5 mg INHALATION RT-BID 01/25/24 01/25/24 History Budesonide/Glycopyr/Formoterol 2 puff INHALATION RT-BID 01/25/24 01/25/24 History [Breztri Aerosphere Inhaler] DULoxetine HCL [Cymbalta] 30 mg PO DAILY 01/25/24 01/25/24 History Ergocalciferol (Vitamin D2) 1,250 mcg PO Q14D 01/25/24 01/25/24 History [Drisdol (50,000 Iu)] INSULIN ASPART (NovoLOG) [NovoLOG 38 units SQ TID-W/MEALS 01/25/24 01/25/24 History (formulary)] INSULIN ASPART (NovoLOG) [NovoLOG See Protocol SQ TID-W/MEALS 01/25/24 01/25/24 History (formulary)] Insulin Glargine [Lantus Vial] 40 units SQ BID 01/25/24 01/25/24 History Ipratropium-Albuterol Nebulize 3 ml INHALATION RT-QID PRN 01/25/24 01/25/24 History [Duoneb 0.5 mg-3 mg/3 ml Soln] Isosorbide Mononitrate ER [Imdur] 60 mg PO DAILY 01/25/24 01/25/24 History Losartan Potassium [Cozaar] 100 mg PO DAILY 01/25/24 01/25/24 History Magnesium Oxide [Magox 400] 400 mg PO DAILY 01/25/24 01/25/24 History NIFEdipine XL [Procardia XL] 90 mg PO W/LUNCH 01/25/24 01/25/24 History Pantoprazole [Protonix] 40 mg PO AC-BRKFST 01/25/24 01/25/24 History Pregabalin [Lyrica] 75 mg PO DAILY 01/25/24 01/25/24 History Sevelamer [Renvela] 800 mg PO TID-W/MEALS 01/25/24 01/25/24 History Spironolactone [Aldactone] 25 mg PO DAILY 01/25/24 01/25/24 History amLODIPine [Norvasc] 10 mg PO DAILY 01/25/24 01/25/24 History carvediloL 25 mg PO BID 01/25/24 01/25/24 History hydrOXYzine HCL 25 mg PO HS 01/25/24 01/25/24 History metOLazone [Zaroxolyn] 5 mg PO DAILY 01/25/24 01/25/24 History Darbepoetin Raheem [Aranesp] 40 mcg SQ Q7D each 02/02/24 Rx Furosemide [Lasix] 80 mg PO DAILY 90 Days #90 tab 02/02/24 Rx traZODone HCL [Desyrel] 100 mg PO HS 30 Days #30 tab 02/02/24 Rx Allergies Allergy/AdvReac Type Severity Reaction Status Date / Time No Known Allergies Allergy Verified 01/25/24 17:33 Surgical - Exam Vital Signs Temp Pulse Resp BP Pulse Ox 98.0 F 76 20 182/90 99 01/25/24 16:35 01/25/24 16:35 01/25/24 16:35 01/25/24 16:35 01/25/24 16:35 - General no distress, no pain - Eyes normal ocular movement, no pale - ENT normal nares, normal mucosa - Respiratory normal expansion, normal respiratory effort - Abdomen Abdomen: soft, non tender - Genitourinary Bilateral scrotal edema, both testicles palpable no abnormality appreciated Results - Labs 02/03/24 05:23 02/03/24 05:23 Abnormal Lab Results - Last 24 Hours (Table) 02/02/24 02/02/2424 Range/Units 16:49 20:10 05:23 RBC 2.97 L (4.40-5.60) X 10*6/uL Hgb 8.6 L (13.0-17.0) g/dL Hct 27.3 L (39.6-50.0) % MCHC 31.5 L (32.0-37.0) g/dL RDW 16.2 H (11.5-14.5) % Plt Count 101 L (140-440) X 10*3/uL MPV 12.4 H (9.5-12.2) FL Lymphocytes # 0.82 L (0.90-5.00) X 10*3/uL Monocytes # 1.42 H (0.20-1.00) X 10*3/uL Eosinophils # 0 L (0.04-0.35) X 10*3/uL BUN (9.0-27.0) mg/dL Creatinine (0.6-1.5) mg/dL Est GFR (CKD-EPI) (>=60) BUN/Creatinine Ratio (12.00-20.00) Ratio Glucose (70-110) mg/dL POC Glucose (mg/dL) 183 H 163 H (70-110) mg/dL Calcium (8.7-10.3) mg/dL Alkaline Phosphatase (41-126) U/L Total Protein (6.2-8.2) g/dL Albumin (3.8-4.9) g/dL Albumin/Globulin Ratio (1.60-3.17) Ratio 02/03/24 02/03/24 Range/Units 05:23 07:25 RBC (4.40-5.60) X 10*6/uL Hgb (13.0-17.0) g/dL Hct (39.6-50.0) % MCHC (32.0-37.0) g/dL RDW (11.5-14.5) % Plt Count (140-440) X 10*3/uL MPV (9.5-12.2) FL Lymphocytes # (0.90-5.00) X 10*3/uL Monocytes # (0.20-1.00) X 10*3/uL Eosinophils # (0.04-0.35) X 10*3/uL BUN 41.1 H (9.0-27.0) mg/dL Creatinine 4.2 H (0.6-1.5) mg/dL Est GFR (CKD-EPI) 16 L (>=60) BUN/Creatinine Ratio 9.79 L (12.00-20.00) Ratio Glucose 189 H (70-110) mg/dL POC Glucose (mg/dL) 175 H (70-110) mg/dL Calcium 8.1 L (8.7-10.3) mg/dL Alkaline Phosphatase 138 H (41-126) U/L Total Protein 5.7 L (6.2-8.2) g/dL Albumin 3.5 L (3.8-4.9) g/dL Albumin/Globulin Ratio 1.59 L (1.60-3.17) Ratio Diabetes panel 02/03/24 Range/Units 05:23 Sodium 138 (135-145) mmol/L Potassium 4.9 (3.5-5.5) mmol/L Chloride 100 (96-109) mmol/L Carbon Dioxide 27.0 (21.6-31.8) mmol/L BUN 41.1 H (9.0-27.0) mg/dL Creatinine 4.2 H (0.6-1.5) mg/dL Glucose 189 H (70-110) mg/dL Calcium 8.1 L (8.7-10.3) mg/dL AST 17 (14-35) U/L ALT 13 (10-49) U/L Alkaline Phosphatase 138 H (41-126) U/L Total Protein 5.7 L (6.2-8.2) g/dL Albumin 3.5 L (3.8-4.9) g/dL Calcium panel 02/03/24 Range/Units 05:23 Calcium 8.1 L (8.7-10.3) mg/dL Albumin 3.5 L (3.8-4.9) g/dL Pituitary panel 02/03/24 Range/Units 05:23 Sodium 138 (135-145) mmol/L Potassium 4.9 (3.5-5.5) mmol/L Chloride 100 (96-109) mmol/L Carbon Dioxide 27.0 (21.6-31.8) mmol/L BUN 41.1 H (9.0-27.0) mg/dL Creatinine 4.2 H (0.6-1.5) mg/dL Glucose 189 H (70-110) mg/dL Calcium 8.1 L (8.7-10.3) mg/dL Adrenal panel 02/03/24 Range/Units 05:23 Sodium 138 (135-145) mmol/L Potassium 4.9 (3.5-5.5) mmol/L Chloride 100 (96-109) mmol/L Carbon Dioxide 27.0 (21.6-31.8) mmol/L BUN 41.1 H (9.0-27.0) mg/dL Creatinine 4.2 H (0.6-1.5) mg/dL Glucose 189 H (70-110) mg/dL Calcium 8.1 L (8.7-10.3) mg/dL Total Bilirubin 0.4 (0.3-1.2) mg/dL AST 17 (14-35) U/L ALT 13 (10-49) U/L Alkaline Phosphatase 138 H (41-126) U/L Total Protein 5.7 L (6.2-8.2) g/dL Albumin 3.5 L (3.8-4.9) g/dL Assessment and Plan Assessment: 54-year-old male with bilateral scrotal edema of 2 weeks after discontinuing the Lasix, scrotal edema secondary to fluid overload, this point recommend continuing diuresis, as there is no surgical invention needed for scrotal edema. Ultrasound did show hydrocele but they are fairly small and the swelling this patient noticing is more from scrotal edema rather than hydrocele.
[2024-02-03 11:19] LABS: Glucose,Whole Blood 138 mg/dL (70-110)
--- NOTE | 2024-02-03 11:28 | P.PN ---
Subjective Principal diagnosis: Patient is seen in follow-up for end-stage renal disease. Seen while undergoing hemodialysis. Receiving extra treatment yesterday with 2 L ultrafiltration. Edema improved. Feeling better. Vital signs are stable. General: No acute distress. HEENT: Head exam is unremarkable. LUNGS: No audible rhonchi or wheezes. HEART: Rate and Rhythm are regular. ABDOMEN: Obese, nontender. EXTREMITITES: 1+ edema. Patient is seen in follow-up for end-stage renal disease. Maintained on hemodialysis on Wednesday schedule. Complains of scrotal edema. Vital signs are stable. General: No acute distress. HEENT: Head exam is unremarkable. LUNGS: No audible rhonchi or wheezes. HEART: Rate and Rhythm are regular. ABDOMEN: Obese, nontender. EXTREMITITES: No edema. Scrotal edema noted. Objective - Vital Signs Vital signs: Vital Signs Temp 97.9 F 02/03/24 07:14 Pulse 74 02/03/24 07:14 Resp 16 02/03/24 07:14 BP 173/76 02/03/24 07:14 Pulse Ox 97 02/03/24 08:27 FiO2 Intake & Output 02/02/24 02/03/24 02/03/24 18:59 06:59 18:59 Intake Total 240 1180 Output Total 4400 Balance 240 -3220 Weight 151 kg Intake: Oral 240 780 Hemodialysis 400 Output: Hemodialysis 2400 Hemodialysis Net Amount 2000 - Labs CBC & Chem 7: 02/03/24 05:23 02/03/24 05:23 Labs: Abnormal Lab Results - Last 24 Hours (Table) 02/02/24 02/02/24 02/03/24 Range/Units 16:49 20:10 05:23 RBC 2.97 L (4.40-5.60) X 10*6/uL Hgb 8.6 L (13.0-17.0) g/dL Hct 27.3 L (39.6-50.0) % MCHC 31.5 L (32.0-37.0) g/dL RDW 16.2 H (11.5-14.5) % Plt Count 101 L (140-440) X 10*3/uL MPV 12.4 H (9.5-12.2) FL Lymphocytes # 0.82 L (0.90-5.00) X 10*3/uL Monocytes # 1.42 H (0.20-1.00) X 10*3/uL Eosinophils # 0 L (0.04-0.35) X 10*3/uL BUN (9.0-27.0) mg/dL Creatinine (0.6-1.5) mg/dL Est GFR (CKD-EPI) (>=60) BUN/Creatinine Ratio (12.00-20.00) Ratio Glucose (70-110) mg/dL POC Glucose (mg/dL) 183 H 163 H (70-110) mg/dL Calcium (8.7-10.3) mg/dL Alkaline Phosphatase (41-126) U/L Total Protein (6.2-8.2) g/dL Albumin (3.8-4.9) g/dL Albumin/Globulin Ratio (1.60-3.17) Ratio 02/03/24 02/03/24 02/03/24 Range/Units 05:23 07:25 11:17 RBC (4.40-5.60) X 10*6/uL Hgb (13.0-17.0) g/dL Hct (39.6-50.0) % MCHC (32.0-37.0) g/dL RDW (11.5-14.5) % Plt Count (140-440) X 10*3/uL MPV (9.5-12.2) FL Lymphocytes # (0.90-5.00) X 10*3/uL Monocytes # (0.20-1.00) X 10*3/uL Eosinophils # (0.04-0.35) X 10*3/uL BUN 41.1 H (9.0-27.0) mg/dL Creatinine 4.2 H (0.6-1.5) mg/dL Est GFR (CKD-EPI) 16 L (>=60) BUN/Creatinine Ratio 9.79 L (12.00-20.00) Ratio Glucose 189 H (70-110) mg/dL POC Glucose (mg/dL) 175 H 138 H (70-110) mg/dL Calcium 8.1 L (8.7-10.3) mg/dL Alkaline Phosphatase 138 H (41-126) U/L Total Protein 5.7 L (6.2-8.2) g/dL Albumin 3.5 L (3.8-4.9) g/dL Albumin/Globulin Ratio 1.59 L (1.60-3.17) Ratio Assessment and Plan Plan: Assessment: 1. End-stage renal disease maintained on hemodialysis on Wednesday schedule. 2. Abdominal wound/abscess being followed by surgery and infectious disease. s/p IV antibiotics. 3. Hypertension with chronic kidney disease. 4. Diabetes mellitus. 5. Chronic kidney disease mineral bone disease maintained on Renvela. 6. Anemia of chronic kidney disease. On Aranesp. 7. Scrotal edema. No torsion noted on ultrasound. Seen by urology. Plan: Currently seen while undergoing hemodialysis. Next treatment Wednesday. Maintain Lasix. Potential discharge after dialysis today.
[2024-02-03 13:27] VITALS: BP 126/74; PULSE 70; RESP 18; TEMP 97.6
--- NOTE | 2024-02-03 14:47 | PN ---
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 He was seen by Infectious Disease and Surgery for swelling versus abscess in the right lower quadrant. He is alert. He is sleepy. He is lethargic. We have given him oxygen and breathing treatments. 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 OBJECTIVE: VITAL SIGNS: O2 of 98%, blood pressure 111/60, pulse 64, temp 98, respiratory rate 16 to 18. Hemoglobin is 9.9, creatinine 3.81. ASSESSMENT: End-stage renal disease, abdominal wound abscess, on IV antibiotics. Mineral bone disorder, anemia of chronic disease, chronic obstructive pulmonary disease. Prognosis guarded. Continue current treatments. Await for further recommendations on the infectious part of it. Home antibiotics per Dr. Rosa. Please see further orders. MMODL / IJN: [id number] /
--- NOTE | 2024-02-03 14:49 | PN ---
PROGRESS NOTE SUBJECTIVE: Increased his blood pressure medicine yesterday. His blood pressure is 111 to 115 over 50 to 60. He has had 96% on 3 L. Temp 97.4, pulse 75 to 60, respiratory rate 16 to 18. Labs show white count of 7, hemoglobin is 9.5, BUN is 65, creatinine 6.2, glucose is 100s to 200s, BUN is 3.4. OBJECTIVE: CARDIOVASCULAR: S1, S2. LUNGS: Transmitted upper sounds. HEMATOLOGY: Negative Homans. PSYCH: Fair mood and affect. He remains on dialysis. His CT scan of the abdomen and pelvis showed no significant decrease in his phlegmon in his right lower quadrant. He has open abdominal wall wound, abdominal wall abscess, small drainage, previous catheter abscess, cellulitis, failing treatment. CAT scan of abdomen and pelvis did not show any significant change. He can discontinue Zosyn. Monitor the patient closely of antibiotic therapy. Prognosis guarded. MMODL / IJN: [id number] /
--- NOTE | 2024-02-03 14:51 | PN ---
PROGRESS NOTE A 54-year-old white male with CHF, end-stage renal disease, phlegmon in the right lower abdomen, for which Dr. Rosa wants to monitor off antibiotics. Possibly discharge home today, but he ate a whole pizza last night. Now he has scrotal edema, which renal physician wants him on Zaroxolyn and Lasix today to try to deal with that and possibly go home tomorrow. Sugars in the 70s to 100s. Hemoglobin is 9.4, white count is 7.04. Prognosis guarded. Continue current treatment. Ambulate as tolerated. Possibly discharge home tomorrow if cleared from surgical status and renal physician and he manages his diet. MMODL / IJN: [id number] /
--- NOTE | 2024-02-03 14:55 | P.PN ---
Subjective Progress Note Date: 02/02/24 Principal diagnosis: Reason for follow-up is abdominal wall cellulitis Patient is a 54-year-old male with a past medical history significant for Coronary Artery Disease (CAD), Diabetes Mellitus, Hyperlipidemia, Hypertension, Renal Disease, patient is currently on hemodialysis through the right IJ dialysis catheter patient previously did have a peritoneal dialysis cat heter placement in April 2023 subsequently discontinued and not developing an area of induration to that site concerning for phlegmon/abscess. On today's evaluation that is 02/02/2024,the patient remains to be afebrile, patient is on 4 L nasal cannula supplemental oxygen and denies any shortness of breath no chest pain or cough.Patient denies having any nausea or vomiting, no abdominal pain and no diarrhea has been reported. No new lab has been drawn today Objective - Vital Signs Vital signs: Vital Signs Temp 97.8 F 02/02/24 14:20 Pulse 77 02/02/24 14:20 Resp 16 02/02/24 14:20 BP 159/75 02/02/24 14:20 Pulse Ox 92 L 02/02/24 14:20 FiO2 Intake & Output 02/01/24 02/02/24 02/02/24 18:59 06:59 18:59 Intake Total 1158 Output Total 6500 Balance -5342 Weight 150.5 kg 151.5 kg Intake: Oral 658 Hemodialysis 500 Output: Hemodialysis 3500 Hemodialysis Net Amount 3000 - Exam GENERAL DESCRIPTION: Middle-age male lying in bed in no distress RESPIRATORY SYSTEM: Unlabored breathing , decreased breath sounds at bases HEART: S1 S2 regular rate and rhythm , ABDOMEN: Soft , no tenderness, minimal erythema around the previous PD catheter site EXTREMITIES: No edema feet - Labs CBC & Chem 7: 02/03/24 05:23 02/03/24 05:23 Labs: Abnormal Lab Results - Last 24 Hours (Table) 02/01/24 02/02/24 Range/Units 19:58 07:36 POC Glucose (mg/dL) 141 H 147 H (70-110) mg/dL Assessment and Plan (1) Open abdominal wall wound Current Visit: Yes Status: Acute Code(s): S31.109A - UNSP OPN WND ABD WALL, UNSP Q W/O PENET PERIT CAV, INIT SNOMED Code(s): 497937960 (2) Abdominal wall abscess Current Visit: Yes Status: Acute Code(s): L02.211 - CUTANEOUS ABSCESS OF ABDOMINAL WALL SNOMED Code(s): 94789201 Plan: 1patient presenting to the hospital with lower abdominal pain and duration and apparently small drainage at that has been the site of previous PD catheter which has been removed with concern for abscess cellulitis failing treatment, we will need to cover for both gram-positive as well as gram-negative pathogen. 2local culture has been negative so far anaerobe cultures currently pending patient did have a CT abdominal pelvis did not show significant change and no evidence of any drainable abscess may be chronic changes rather than infection 3patient was noticed to have some erythema around the previous PD catheter site we will start the patient on doxycycline Dictation was produced using [employer] dictation software. please excuse any grammatical, word or spelling errors.
--- NOTE | 2024-02-03 14:56 | P.PN ---
Subjective Progress Note Date: 02/03/24 Principal diagnosis: Reason for follow-up is abdominal wall cellulitis Patient is a 54-year-old male with a past medical history significant for Coronary Artery Disease (CAD), Diabetes Mellitus, Hyperlipidemia, Hypertension, Renal Disease, patient is currently on hemodialysis through the right IJ dialysis catheter patient previously did have a peritoneal dialysis cat heter placement in April 2023 subsequently discontinued and not developing an area of induration to that site concerning for phlegmon/abscess. On today's evaluation that is 02/03/2024, the patient continues to be afebrile, the patient is on 4 L nasal cannula oxygen and breathing comfortably, the Pt denies having any chest pain or cough, the patient denies having any abdominal pain no vomiting or any diarrhea has been reported by the nursing staff. Patient white count is 8.41, creatinine is 4.2 Objective - Vital Signs Vital signs: Vital Signs Temp 97.9 F 02/03/24 07:14 Pulse 74 02/03/24 07:14 Resp 16 02/03/24 07:14 BP 173/76 02/03/24 07:14 Pulse Ox 97 02/03/24 08:27 FiO2 Intake & Output 02/02/24 02/03/24 02/03/24 18:59 06:59 18:59 Intake Total 240 1180 Output Total 4400 Balance 240 -3220 Weight 151 kg Intake: Oral 240 780 Hemodialysis 400 Output: Hemodialysis 2400 Hemodialysis Net Amount 1999 - Exam GENERAL DESCRIPTION: Middle-age male lying in bed in no distress RESPIRATORY SYSTEM: Unlabored breathing , decreased breath sounds at bases HEART: S1 S2 regular rate and rhythm , ABDOMEN: Soft , no tenderness, minimal erythema around the previous PD catheter site EXTREMITIES: No edema feet - Labs CBC & Chem 7: 02/03/24 05:23 02/03/24 05:23 Labs: Abnormal Lab Results - Last 24 Hours (Table) 02/02/24 02/02/24 02/03/24 Range/Units 16:49 20:10 05:23 RBC 2.97 L (4.40-5.60) X 10*6/uL Hgb 8.6 L (13.0-17.0) g/dL Hct 27.3 L (39.6-50.0) % MCHC 31.5 L (32.0-37.0) g/dL RDW 16.2 H (11.5-14.5) % Plt Count 101 L (140-440) X 10*3/uL MPV 12.4 H (9.5-12.2) FL Lymphocytes # 0.82 L (0.90-5.00) X 10*3/uL Monocytes # 1.42 H (0.20-1.00) X 10*3/uL Eosinophils # 0 L (0.04-0.35) X 10*3/uL BUN (9.0-27.0) mg/dL Creatinine (0.6-1.5) mg/dL Est GFR (CKD-EPI) (>=60) BUN/Creatinine Ratio (12.00-20.00) Ratio Glucose (70-110) mg/dL POC Glucose (mg/dL) 183 H 163 H (70-110) mg/dL Calcium (8.7-10.3) mg/dL Alkaline Phosphatase (41-126) U/L Total Protein (6.2-8.2) g/dL Albumin (3.8-4.9) g/dL Albumin/Globulin Ratio (1.60-3.17) Ratio 02/03/24 02/03/24 02/03/24 Range/Units 05:23 07:25 11:17 RBC (4.40-5.60) X 10*6/uL Hgb (13.0-17.0) g/dL Hct (39.6-50.0) % MCHC (32.0-37.0) g/dL RDW (11.5-14.5) % Plt Count (140-440) X 10*3/uL MPV (9.5-12.2) FL Lymphocytes # (0.90-5.00) X 10*3/uL Monocytes # (0.20-1.00) X 10*3/uL Eosinophils # (0.04-0.35) X 10*3/uL BUN 41.1 H (9.0-27.0) mg/dL Creatinine 4.2 H (0.6-1.5) mg/dL Est GFR (CKD-EPI) 16 L (>=60) BUN/Creatinine Ratio 9.79 L (12.00-20.00) Ratio Glucose 189 H (70-110) mg/dL POC Glucose (mg/dL) 175 H 138 H (70-110) mg/dL Calcium 8.1 L (8.7-10.3) mg/dL Alkaline Phosphatase 138 H (41-126) U/L Total Protein 5.7 L (6.2-8.2) g/dL Albumin 3.5 L (3.8-4.9) g/dL Albumin/Globulin Ratio 1.59 L (1.60-3.17) Ratio Assessment and Plan (1) Open abdominal wall wound Current Visit: Yes Status: Acute Code(s): S31.109A - UNSP OPN WND ABD WALL, UNSP Q W/O PENET PERIT CAV, INIT SNOMED Code(s): 489776764 (2) Abdominal wall abscess Current Visit: Yes Status: Acute Code(s): L02.211 - CUTANEOUS ABSCESS OF ABDOMINAL WALL SNOMED Code(s): 52296288 Plan: 1patient presenting to the hospital with lower abdominal pain and duration and apparently small drainage at that has been the site of previous PD catheter whi ch has been removed with concern for abscess cellulitis failing treatment, we will need to cover for both gram-positive as well as gram-negative pathogen. 2local culture has been negative so far anaerobe cultures currently pending patient did have a CT abdominal pelvis did not show significant change and no evidence of any drainable abscess may be chronic changes rather than infection 3patient was noticed to have some erythema around the previous PD catheter site, patient restarted on oral doxycycline will advise a 2-week course on discharge prescription will be sent to the pharmacy in the process patient follow-up Dictation was produced using [employer] dictation software. please excuse any grammatical, word or spelling errors. Time with Patient: Less than 30
[2024-02-03 17:04] LABS: Glucose,Whole Blood 129 mg/dL (70-110)
--- NOTE | 2024-02-17 22:08 | CDI ---
Documentation Clarification Form Date: 02/17/2024 10:01:28 PM From: Kacie Blanc Phone: Admit Date: 01/25/2024 04:25:00 PM Patient Name: Luis A Walters Visit Number: [id number] Discharge Date: 02/03/2024 06:39:00 PM ATTENTION: The Clinical Documentation Specialists (CDI) and [facility] Coding Staff appreciate your assistance in clarifying documentation. Please respond to the clarification below the line at the bottom and electronically sign. The CDI & [facility] Coding staff will review the response and follow-up if needed. Please note: Queries are made part of the Legal Health Record. If you have any questions, please contact the author of this message via ITS. 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 Additional clarification is requested. History/Risk Factors: 54yo M, ESRD w anemia and bone mineral disease, abdominalwound/abscess, HTN, DMII, scrotal edema, moderate PCM, CDHF, morbid obesity w BMI 49 Clinical Indicators: maintained on Renvela at home Treatment: maintained on Renvela Can you please clarify the mineralbone disorder? [ ] Renal dystrophy [ ] CKD mineralbone disorder unspecified [ ] Other, please specify [ ] Unable to determine (Template Last Revised: July 2020) MTDD
--- NOTE | 2024-02-17 22:19 | CDI ---
Documentation Clarification Form Date: 02/17/2024 10:09:39 PM From: Kacie Blanc Phone: Admit Date: 01/25/2024 04:25:00 PM Patient Name: Luis A Walters Visit Number: [id number] Discharge Date: 02/03/2024 06:39:00 PM ATTENTION: The Clinical Documentation Specialists (CDI) and [facility] Coding Staff appreciate your assistance in clarifying documentation. Please respond to the clarification below the line at the bottom and electronically sign. The CDI & [facility] Coding staff will review the response and follow-up if needed. Please note: Queries are made part of the Legal Health Record. If you have any questions, please contact the author of this message via ITS. Doctor/Provider: Tigre Orozco Abdominal wall cellulitis is documented per Progress Notes. Additional clarification regarding the type of cellulitis is requested. History/risk factors: 54yo M, abdominal wall cellulitis, abdominal wall hernia containing fat and protrusion of the anterior left liver lobe, CAD, DMII, HTN, HLD, ESRD on HD w anemia Clinical Indicators: Pt presenting to the hospital withlower abdominal painand duration and apparently smalldrainageat that has been the site of previous PD catheter which has beenremovedwith concern forabscesscellulitisfailing treatment, we will need to cover for both gram-positive as well as gram-negative pathogen. Local culture has been negative so far anaerobe cultures currentlypending. Pt did have aCT abdominalpelvis did not show significant change andno evidence of anydrainableabscessmay be chronic changesrather thaninfection. Pt was noticed to have someerythemaaround the previous PD catheter site, Treatment: Pt restarted on oral doxycycline will advise a 2-week course on discharge prescription will be sent to the pharmacy in the process. Pt follow-up Please clarify the type of cellulitis, if known: [ ] Cellulitis due to DMII [ ] Cellulitis not due to DMII [ ] Other, please specify: [ ] Unable to determine (Template Last Revised: May 2022) MTDD
--- NOTE | 2024-02-20 22:23 | PN ---
PROGRESS NOTE Chronic kidney disease; mineral bone disorder, unspecified; cellulitis due to diabetes mellitus type 2. MMODL / IJN: [id number] /
== END 2024-02-03 18:39 | disposition home or self-care (01) | DRG 602 ==
LOC: 5NMEDONC 01-25 16:25
PROVIDERS: ADMIT Family Medicine; ATTEND Family Medicine
PROC: 5A1D70Z Performance of Urinary Filtration, Intermittent, Less than 6 Hours Per Day (ICD-10-PCS; principal; 2024-01-27)
DX: L02.211 Cutaneous abscess of abdominal wall (principal); N18.6 End stage renal disease; E44.0 Moderate protein-calorie malnutrition; I13.2 Hypertensive heart and chronic kidney disease with heart failure and with stage 5 chronic kidney disease, or end stage renal disease; I50.32 Chronic diastolic (congestive) heart failure; Z68.42 Body mass index [BMI] 45.0-49.9, adult; E11.319 Type 2 diabetes mellitus with unspecified diabetic retinopathy without macular edema; E11.22 Type 2 diabetes mellitus with diabetic chronic kidney disease; E11.42 Type 2 diabetes mellitus with diabetic polyneuropathy; E66.01 Morbid (severe) obesity due to excess calories; Z99.2 Dependence on renal dialysis; Z79.4 Long term (current) use of insulin; D63.1 Anemia in chronic kidney disease; R16.2 Hepatomegaly with splenomegaly, not elsewhere classified; J44.89 Other specified chronic obstructive pulmonary disease; G47.33 Obstructive sleep apnea (adult) (pediatric); I25.10 Atherosclerotic heart disease of native coronary artery without angina pectoris; E78.5 Hyperlipidemia, unspecified; K43.9 Ventral hernia without obstruction or gangrene; N43.3 Hydrocele, unspecified; L03.311 Cellulitis of abdominal wall; Z86.14 Personal history of Methicillin resistant Staphylococcus aureus infection; Z95.1 Presence of aortocoronary bypass graft; Z98.1 Arthrodesis status; Z87.891 Personal history of nicotine dependence; Z79.51 Long term (current) use of inhaled steroids; Z79.899 Other long term (current) drug therapy; I25.2 Old myocardial infarction; M89.8X9 Other specified disorders of bone, unspecified site; E11.628 Type 2 diabetes mellitus with other skin complications
CPT/HCPCS: 74176; 76870; 80048; 80053; 80202; 82565; 84145; 85025; 85610; 85652; 86706; 87070; 87075; 87086; 87205; 87340; 90935; 93975; 94640; 94760

== ENCOUNTER 2024-08-23 06:33 | Day surgery (SDC) | payer MEDICARE, OTHER ==
[2024-08-21 15:43] VITALS: BMI 43.9
[~2024-08-23 06:33] MED LIST changes: -HYDROmorphone 0.5 MG/0.5 ML SYRINGE IVP PRN; -LIDOCAINE 1% (10MG/ML) FOR IV START INTRADERMA PRN; -MIDAZOLAM 2 MG/2 ML VIAL IV PRN; -ONDANSETRON 4 MG/2 ML VIAL IVP ONE; -fentaNYL (PF) 50 MCG/ML 2 ML AMP IV PRN
[2024-08-23] MEDS ORDERED: HYDROmorphone 0.5 MG/0.5 ML SYRINGE IVP PRN (07:00)
[2024-08-23 07:51] LABS: Glucose,Whole Blood 287 mg/dL (70-110)
[2024-08-23] MEDS: SODIUM CHLORIDE 0.9% 500 ML 500 ML IV ONE (08:11)
[2024-08-23] MEDS: MIDAZOLAM 2 MG/2 ML VIAL IV ONE (08:24)
[2024-08-23] MEDS: ONDANSETRON 4 MG/2 ML VIAL IVP ONE (08:25)
[2024-08-23 08:28] LABS: HCT 36.4 % (39.6-50.0); HGB 12.1 g/dL (13.0-17.0); MCH 30.8 pg (27.0-32.0); MCHC 33.2 g/dL (32.0-37.0); MCV 92.6 fL (80.0-97.0); Mean Platelet Volume 11.1 fL (9.5-12.2); RBC 3.93 10*6/uL (4.40-5.60); RDW 15.9 % (11.5-14.5); WBC 8.24 10*3/uL (4.50-10.00)
[2024-08-23 08:30] LABS: Platelet Count 107 10*3/uL (140-440)
[2024-08-23 08:32] LABS: African American GFR (CKD) 18 (>60 ml/min/1.73 sqM); Anion Gap 12 mmol/L; Blood Urea Nitrogen 39 mg/dL (9-20); Calcium 9.2 mg/dL (8.4-10.2); Carbon Dioxide 28 mmol/L (22-30); Chloride 94 mmol/L (98-107); Glucose 284 mg/dL (74-99); Non-African American GFR(CKD) 16 (>60 ml/min/1.73 sqM); Potassium 4.4 mmol/L (3.5-5.1); Sodium 134 mmol/L (137-145)
[2024-08-23] MEDS ORDERED: DEXAMETHASONE SOD PHOSPHATE 4 MG/ML 1 ML VIAL ONE (08:44)
[2024-08-23] MEDS ORDERED: MIDAZOLAM 2 MG/2 ML VIAL ONE (08:44)
[2024-08-23] MEDS ORDERED: HEPARIN SODIUM,PORCINE 5,000 UNIT/ML 1 ML VIAL ONE (08:44)
[2024-08-23] MEDS ORDERED: KETAMINE HCL IN 0.9 % NACL 50 MG/5 ML SYRINGE ONE (08:44)
[2024-08-23] MEDS ORDERED: fentaNYL (PF) 50 MCG/ML 2 ML AMP ONE (08:44)
[2024-08-23] MEDS ORDERED: ROPIVACAINE 5 MG/ML 30 ML VIAL ONE (08:44)
[2024-08-23] MEDS ORDERED: PROPOFOL 10 MG/ML 20 ML VIAL IV ONE (08:44)
[2024-08-23] MEDS: ceFAZolin 3 GM in SODIUM CHLORIDE 0.9% 100 ML IVPB PRN (08:49)
[2024-08-23 08:52] VITALS: TEMP 98.7
[2024-08-23] MEDS: LIDOCAINE 1% INJ 10MG/ML (20 ML MDV) SQ ONE ×2 (09:03→09:10)
[2024-08-23] MEDS: HEPARIN SODIUM,PORCINE (1 ML) 2,000 UNIT in SODIUM CHLORIDE 0.9% 500 ML 500 ML IRRIGATION ONE (09:11)
[2024-08-23] MEDS: ceFAZolin 2 GM in SODIUM CHLORIDE 0.9% 500 ML 500 ML IRRIGATION ONE (09:12)
--- NOTE | 2024-08-23 10:52 | P.OP ---
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 Description of Procedure: After written informed consent was obtained the patient all risks benefits and competitions were described patient is brought to the operative suite and laid in a supine position with the left arm outstretched on an armboard. The area of the arm was then prepped and draped in usual sterile fashion after appropriate anesthetic was performed per the anesthesiologist. A timeout was performed in normal fashion antibiotics were administered prior to incision. A transverse incision was then created just distal to the elbow and dissection was carried down to the antecubital vein and this was dissected free in a circumferential manner. Proximal and distal control was obtained with vessel loops. Attention was then placed to the artery and the brachial artery was then dissected free in a circumferential manner and controlled with vessel loops for the proximal and distal aspect. A tunnel was then created in a loop fashion with a counterincision made in the forearm and a 4-7 mm Rayne propatent graft was tunneled in a loop fashion. Patient was then administered heparin. Arterial anastomosis was then performed after arteriotomy was created in the brachial artery and extended with Pott Lucio scissors. We 4 mm aspect of the graft was then spatulated in normal fashion and anastomosis was created with 6-0 Prolene suture in a running fashion. Control was then released into the graft revealing good pulsatile blood flow. Distal control of the artery was then released. Assessment of the radial artery demonstrated good pulse. The anastomosis was then performed. Venotomy was created with 11 blade scalpel and extended with Pott Lucio scissors. A 7 mm aspect of the graft was then spatulated in normal fashion and anastomosis was created with 6-0 Prolene suture in a running fashion. Prior to last sutures being placed control was released revealing good backbleeding from the vein. The graft was flushed with heparin saline. Control was then released revealing good pulsatile blood flow within the vein with a good palpable thrill noted. Hemostasis was then assured. Incisions were then closed in a multilayer fashion. Skin was cleansed and dressings were placed. The patient tolerated the procedure well and was sent to PACU for recovery.
[2024-08-23 10:56] VITALS: PULSE 89; RESP 16
[2024-08-23 11:00] LABS: Glucose,Whole Blood 277 mg/dL (70-110)
[2024-08-23 11:37] VITALS: BP 155/85
--- NOTE | 2024-08-28 09:33 | P.ANPRN ---
Procedure Note - Anesthesia - Nerve Block Performed Left Supraclavicular Single Time Out Performed: Yes Date of Procedure: 08/23/24 Procedure Start Time: Procedure Stop Time: Location of Patient: PreOp Indication: Acute Post-Operative Pain, Requested by Surgeon Sedation Type: Sedate with meaningful contact maintained Preparation: Sterile Prep Position: Supine Needle Types: Pajunk Needle Gauge: 21 Ultrasound used to visualize needle placement: Yes Ultrasound used to observe medication spread: Yes Blood Aspirated: No Pain Paresthesia on Injection Noted: No Resistance on Injection: Normal Image Stored and Saved: Yes Events: Uneventful and Well Tolerated (Ropivacaine 0.5% 20 cc plus dexamethasone 4 mg)
== END 2024-08-23 11:41 | disposition home or self-care (01) ==
LOC: OR 06:33
PROVIDERS: ATTEND Surgery
DX: T82.511A Breakdown (mechanical) of surgically created arteriovenous shunt, initial encounter (principal); E11.22 Type 2 diabetes mellitus with diabetic chronic kidney disease; I13.2 Hypertensive heart and chronic kidney disease with heart failure and with stage 5 chronic kidney disease, or end stage renal disease; I50.9 Heart failure, unspecified; N18.6 End stage renal disease; Z99.2 Dependence on renal dialysis; I25.10 Atherosclerotic heart disease of native coronary artery without angina pectoris; Z95.1 Presence of aortocoronary bypass graft; Z95.5 Presence of coronary angioplasty implant and graft; E11.40 Type 2 diabetes mellitus with diabetic neuropathy, unspecified; E78.5 Hyperlipidemia, unspecified; G47.33 Obstructive sleep apnea (adult) (pediatric); J44.9 Chronic obstructive pulmonary disease, unspecified; E66.01 Morbid (severe) obesity due to excess calories; Z68.41 Body mass index [BMI] 40.0-44.9, adult; Z79.69 Long term (current) use of other immunomodulators and immunosuppressants; Z79.4 Long term (current) use of insulin; Z79.82 Long term (current) use of aspirin; Z79.51 Long term (current) use of inhaled steroids; Z79.899 Other long term (current) drug therapy; Z87.891 Personal history of nicotine dependence
CPT/HCPCS: 36830; 64415; 80048; 85027; L8670; J2250; J1644; J1100; J0690; J2405; J2003; J3010; J2795; J2704

== ENCOUNTER 2024-10-19 12:42 | Emergency (ER) | payer MEDICARE, OTHER ==
[2024-10-19 12:55] VITALS: RESP 20; TEMP 98.1
--- NOTE | 2024-10-19 13:10 | ED ---
General Adult HPI - General Chief complaint: Chest Pain Stated complaint: chest pain Time Seen by Provider: 10/19/24 12:50 Source: patient, EMS, RN notes reviewed, old records reviewed Mode of arrival: EMS Limitations: no limitations - History of Present Illness Initial comments: This is a 54-year-old male who presents to the emergency department complaining of chest pain. Patient was at dialysis when he started experiencing chest heaviness that radiated to the left side of his neck and he was short of breath and he gave him a nitroglycerin and aspirin and en route he had another nitroglycerin. Patient states the nitro did not appear to help his chest pain but he is feeling a little bit better at this time. Patient states he has acute renal failure diabetes hypertension high cholesterol. Patient states he does have a history of smoking but he no longer smokes. Patient also had bypass surgery. Patient denies any fever chills or cough. Patient denies abdominal pain nausea vomiting. - Related Data Home Medications Medication Instructions Recorded Confirmed HYDROcodone/APAP 10-325MG [Golconda 1 tab PO Q6H PRN 06/13/19 08/23/24 10-325] Montelukast [Singulair] 10 mg PO HS 06/13/19 08/23/24 Ammonium Lactate Cream [Lac-Hydrin 1 applic TOPICAL BID PRN 01/25/24 08/23/24 12% Cream] Atorvastatin [Lipitor] 80 mg PO HS 01/25/24 08/23/24 Budesonide/Glycopyr/Formoterol 2 puff INHALATION RT-BID 01/25/24 08/23/24 [Breztri Aerosphere Inhaler] DULoxetine HCL [Cymbalta] 30 mg PO HS 01/25/24 08/23/24 INSULIN ASPART (NovoLOG) [NovoLOG 38 units SQ TID-W/MEALS 01/25/24 08/23/24 (formulary)] Insulin Glargine (Lantus) [Lantus 40 units SQ BID 01/25/24 08/23/24 Vial] Ipratropium-Albuterol Nebulize 3 ml INHALATION RT-QID PRN 01/25/24 08/23/24 [Duoneb 0.5 mg-3 mg/3 ml Soln] Pantoprazole [Protonix] 40 mg PO AC-BRKFST 01/25/24 08/23/24 Sevelamer [Renvela] 800 mg PO TID-W/MEALS 01/25/24 08/23/24 amLODIPine [Norvasc] 10 mg PO DAILY 01/25/24 08/21/24 carvediloL 25 mg PO BID 01/25/24 08/21/24 hydrOXYzine HCL 25 mg PO HS 01/25/24 08/21/24 metOLazone [Zaroxolyn] 5 mg PO DAILY 01/25/24 08/23/24 Aspirin [Adult Low Dose Aspirin EC] 81 mg PO DAILY 08/21/24 08/23/24 Furosemide [Lasix] 80 mg PO BID 08/21/24 08/23/24 Vitamin D 1 dose PO Q48H 08/21/24 08/21/24 hydrALAZINE HCL [Apresoline] 100 mg PO TID 08/21/24 08/21/24 Allergies Allergy/AdvReac Type Severity Reaction Status Date / Time No Known Allergies Allergy Verified 10/19/24 12:55 Review of Systems ROS Statement: Those systems with pertinent positive or pertinent negative responses have been documented in the HPI. ROS Other: All systems not noted in ROS Statement are negative. Past Medical History Past Medical History: Coronary Artery Disease (CAD), Diabetes Mellitus, Hyperlipidemia, Hypertension, Renal Disease Additional Past Medical History / Comment(s): ESRD-Dialysis T-TH-Sat via chest port. Diabetes dx. in 2007, neuropathy B/L hands/feet, retinopathy bilateral eyes, nephrolithiasis, arthritis B/L hands/wrists, chronic lumbar back pain, vertigo at times. Last Myocardial Infarction Date:: 11/02/16, 08/02/17 History of Any Multi-Drug Resistant Organisms: MRSA Date of last positivie culture/infection: 02/05/21 MDRO Source:: MRSA L LEG Past Surgical History: Back Surgery, Coronary Bypass/CABG, Heart Catheterization With Stent, Orthopedic Surgery Additional Past Surgical History / Comment(s): Peritoneal Cath Insertion 2022, CABG 07/2017, kidney stone basketing, failed L4-L5 fusion x2, colonoscopy Past Anesthesia/Blood Transfusion Reactions: Motion Sickness Additional Past Anesthesia/Blood Transfusion Reaction / Comment(s): Hx of vertigo Date of Last Stent Placement:: 2018 Past Psychological History: No Psychological Hx Reported Smoking Status: Former smoker - Past Family History Father Family Medical History: Congestive Heart Failure (CHF), Coronary Artery Disease (CAD), CVA/TIA, Myocardial Infarction (AR) Mother Family Medical History: Cancer Additional Family Medical History / Comment(s): Mother had multiple cancers. General Exam - General Exam Comments Initial Comments: GENERAL: Patient is well-developed and well-nourished. Patient is nontoxic and well- hydrated and is in mild distress. ENT: Neck is soft and supple. No significant lymphadenopathy is noted. Oropharynx is clear. Moist mucous membranes. Neck has full range of motion without eliciting any pain. EYES: The sclera were anicteric and conjunctiva were pink and moist. Extraocular movements were intact and pupils were equal round and reactive to light. Eyelids were unremarkable. PULMONARY: Unlabored respirations. Good breath sounds bilaterally. No audible rales rhonchi or wheezing was noted. CARDIOVASCULAR: There is a regular rate and rhythm without any murmurs gallops or rubs. ABDOMEN: Soft and nontender with normal bowel sounds. SKIN: Skin is clear with no lesions or rashes and otherwise unremarkable. NEUROLOGIC: Patient is alert and oriented x3. Cranial nerves II through XII are grossly intact. Motor and sensory are also intact. Normal speech, volume and content. Symmetrical smile. MUSCULOSKELETAL: Normal extremities with adequate strength and full range of motion. LYMPHATICS: No significant lymphadenopathy is noted PSYCHIATRIC: Normal psychiatric evaluation. Limitations: no limitations Course Vital Signs 10/19/24 10/19/24 12:46 14:22 Temperature 98.1 F Pulse Rate 89 85 Respiratory 20 20 Rate Blood Pressure 146/83 126/59 O2 Sat by Pulse 98 97 Oximetry Medical Decision Making - Medical Decision Making EKG is interpreted by myself her EKG shows a sinus rhythm at 85 bpm TX 180 QRS is 105 QT interval is 3 5 QTc is 427. Patient's EKG shows no ST segment elevation or depression. Patient does have a Q wave in leads III and aVF Was pt. sent in by a medical professional or institution ([facility], [facility] [employer], urgent care, hospital, or correction...) When possible be specific @ -No Did you speak to anyone other than the patient for history (EMS, parent, family, police, friend...)? What history was obtained from this source @ -No Did you review nursing and triage notes (agree or disagree)? Why? @ -I reviewed and agree with nursing and triage notes Were old charts reviewed (outside hosp., previous admission, EMS record, old EKG, old radiological studies, urgent care reports/EKG's, correction records)? Report findings @ -No old charts were reviewed Differential Diagnosis? @ -Differential Chest Pain: Stable Angina, Unstable Angina, STEMI, NSTEMI Aortic Dissection, Pneumothorax, Musculoskeletal, Esophageal Spasm GERD, Cholecystitis, Pancreatitis, Zoster, this is not meant to be an all-inclusive list. EKG interpreted by me (3pts min.). @ -As above X-rays interpreted by me (1pt min.). @ -Chest x-ray shows no acute abnormality CT interpreted by me (1pt min.). @ -None done U/S interpreted by me (1pt. min.). @ -None done What testing was considered but not performed or refused? (CT, X-rays, U/S, labs)? Why? @ -None What meds were considered but not given or refused? Why? @ -None Did you discuss the management of the patient with other professionals (professionals i.e. , PA, [employer], lab, RT, psych nurse, social media sr strategy manager, medical coding manager, teacher, chief medical officer, case management director)? Give summary @ -I was calling Dr. Orozco to admit the patient and prior to getting a phone call back the patient signed out AMA Was smoking cessation discussed for >3mins.? @ -No Was critical care preformed (if so, how long)? @ -No Were there social determinants of health that impacted care today? How? (Homelessness, low income, unemployed, alcoholism, drug addiction, transportation, low edu. Level, literacy, decrease access to med. care, skilled nursing, rehab)? @ -No Was there de-escalation of care discussed even if they declined (Discuss DNR or withdrawal of care, Hospice)? DNR status @ -No What co-morbidities impacted this encounter? (DM, HTN, Smoking, COPD, CAD, Cancer, CVA, ARF, Chemo, Hep., AIDS, mental health diagnosis, sleep apnea, morbid obesity)? @ -None Was patient admitted / discharged? Hospital course, mention meds given and route, prescriptions, significant lab abnormalities, going to OR and other pertinent info. @ -Patient continue have some chest pain in the emergency department so I gave the patient 2 of morphine it seemed to help his pain considerably. Patient's lab work came back within normal range. X-ray was normal range. Patient did not want to stay I guess and left AMA Undiagnosed new problem with uncertain prognosis? @ -No Drug Therapy requiring intensive monitoring for toxicity (Heparin, Nitro, Insulin, Cardizem)? @ -No Were any procedures done? @ -No Diagnosis/symptom? @ -Chest pain Acute, or Chronic, or Acute on Chronic? @ -Acute Uncomplicated (without systemic symptoms) or Complicated (systemic symptoms)? @ -Complicated Side effects of treatment? @ -No Exacerbation, Progression, or Severe Exacerbation? @ -No Poses a threat to life or bodily function? How? (Chest pain, USA, AR, pneumonia, PE, COPD, DKA, ARF, appy, cholecystitis, CVA, Diverticulitis, Homicidal, Suicidal, threat to staff... and all critical care pts) @ -Yes this could lead to an AR and endorgan dysfunction - Lab Data Result diagrams: 10/19/24 13:14 10/19/24 13:14 Lab Results 10/19/24 10/19/24 10/19/24 Range/Units 13:14 13:14 13:14 WBC 8.01 (4.50-10.00) 10*3/uL RBC 3.43 L (4.40-5.60) 10*6/uL Hgb 11.0 L (13.0-17.0) g/dL Hct 32.1 L (39.6-50.0) % MCV 93.6 (80.0-97.0) fL MCH 32.1 H (27.0-32.0) pg MCHC 34.3 (32.0-37.0) g/dL Plt Count 116 L (140-440) 10*3/uL MPV 11.3 (9.5-12.2) fL Immature Gran % (Auto) 0.6 % Neutrophils % 70.3 % Lymphocytes % 15.2 % Monocytes % 13.2 % Eosinophils % 0.0 % Basophils % 0.7 % Immature Gran # 0.05 H (0.00-0.04) 10*3/uL Neutrophils # 5.62 (1.80-7.70) 10*3/uL Lymphocytes # 1.22 (0.90-5.00) 10*3/uL Monocytes # 1.06 H (0.20-1.00) 10*3/uL Eosinophils # 0.00 L (0.04-0.35) 10*3/uL Basophils # 0.06 (0.00-0.10) 10*3/uL Immature Plt Fraction 4.4 (1.1-6.1) % PT 10.4 (10.0-12.5) sec INR 0.9 (<1.2) APTT 27.7 (22.0-30.0) sec Sodium 136 L (137-145) mmol/L Potassium 4.1 (3.5-5.1) mmol/L Chloride 98 (98-107) mmol/L Carbon Dioxide 25 (22-30) mmol/L Anion Gap 13 mmol/L BUN 47 H (9-20) mg/dL Creatinine 5.59 H (0.66-1.25) mg/dL Est GFR (CKD-EPI)AfAm 12 (>60 ml/min/1.73 sqM) Est GFR (CKD-EPI)NonAf 11 (>60 ml/min/1.73 sqM) Glucose 176 H (74-99) mg/dL Calcium 8.3 L (8.4-10.2) mg/dL Magnesium 1.4 L (1.6-2.3) mg/dL Total Bilirubin 0.9 (0.2-1.3) mg/dL AST 24 (17-59) U/L ALT 24 (4-49) U/L Alkaline Phosphatase 93 (38-126) U/L Troponin I (0.000-0.034) ng/mL NT-Pro-B Natriuret Pep 1300 pg/mL Total Protein 6.8 (6.3-8.2) g/dL Albumin 4.0 (3.5-5.0) g/dL 10/19/24 Range/Units 13:14 WBC (4.50-10.00) 10*3/uL RBC (4.40-5.60) 10*6/uL Hgb (13.0-17.0) g/dL Hct (39.6-50.0) % MCV (80.0-97.0) fL MCH (27.0-32.0) pg MCHC (32.0-37.0) g/dL Plt Count (140-440) 10*3/uL MPV (9.5-12.2) fL Immature Gran % (Auto) % Neutrophils % % Lymphocytes % % Monocytes % % Eosinophils % % Basophils % % Immature Gran # (0.00-0.04) 10*3/uL Neutrophils # (1.80-7.70) 10*3/uL Lymphocytes # (0.90-5.00) 10*3/uL Monocytes # (0.20-1.00) 10*3/uL Eosinophils # (0.04-0.35) 10*3/uL Basophils # (0.00-0.10) 10*3/uL Immature Plt Fraction (1.1-6.1) % PT (10.0-12.5) sec INR (<1.2) APTT (22.0-30.0) sec Sodium (137-145) mmol/L Potassium (3.5-5.1) mmol/L Chloride (98-107) mmol/L Carbon Dioxide (22-30) mmol/L Anion Gap mmol/L BUN (9-20) mg/dL Creatinine (0.66-1.25) mg/dL Est GFR (CKD-EPI)AfAm (>60 ml/min/1.73 sqM) Est GFR (CKD-EPI)NonAf (>60 ml/min/1.73 sqM) Glucose (74-99) mg/dL Calcium (8.4-10.2) mg/dL Magnesium (1.6-2.3) mg/dL Total Bilirubin (0.2-1.3) mg/dL AST (17-59) U/L ALT (4-49) U/L Alkaline Phosphatase (38-126) U/L Troponin I 0.015 (0.000-0.034) ng/mL NT-Pro-B Natriuret Pep pg/mL Total Protein (6.3-8.2) g/dL Albumin (3.5-5.0) g/dL Disposition Clinical Impression: Chest pain Disposition: LEFT AGAINST MEDICAL ADVICE Referrals: Tigre Orozco MD [Primary Care Provider] - 1-2 days Time of Disposition: 15:13
[2024-10-19] MEDS: NITROGLYCERIN OINT 1 INCH/GM PACKET TOPICAL STA (13:17)
[2024-10-19 13:34] LABS: Basophils # (A) 0.06 10*3/uL (0.00-0.10); Basophils % (A) 0.7 %; HCT 32.1 % (39.6-50.0); Immature Platelet Fraction 4.4 % (1.1-6.1); Lymphocytes # (A) 1.22 10*3/uL (0.90-5.00); Lymphocytes % (A) 15.2 %; MCH 32.1 pg (27.0-32.0); MCHC 34.3 g/dL (32.0-37.0); MCV 93.6 fL (80.0-97.0); Mean Platelet Volume 11.3 fL (9.5-12.2); Monocytes # (A) 1.06 10*3/uL (0.20-1.00); Monocytes % (A) 13.2 %; Neutrophils # (A) 5.62 10*3/uL (1.80-7.70); Neutrophils % (A) 70.3 %; Platelet Count 116 10*3/uL (140-440); RBC 3.43 10*6/uL (4.40-5.60); RDW 15.2 % (11.5-14.5); WBC 8.01 10*3/uL (4.50-10.00)
[2024-10-19 13:49] LABS: INR 0.9 (<1.2); Partial Thromboplastin Time 27.7 sec (22.0-30.0); Prothrombin Time 10.4 sec (10.0-12.5)
--- NOTE | 2024-10-19 13:53 | XR ---
EXAMINATION TYPE: XR chest 2V DATE OF EXAM: 10/19/2024 1:44 PM COMPARISON: None. CLINICAL INDICATION: Male, 54 years old with history of Chest Pain, shortness of breath, pain TECHNIQUE: XR chest 2V view(s) obtained. FINDINGS: The heart size is mildly prominent. The pulmonary vasculature is normal. The lungs are clear. Catheters present on the right. Tips are within the proximal right atrium. No p neumothorax evident. IMPRESSION: 1. No acute pulmonary process. [facility], , 10/19/2024 1:51 PM
[2024-10-19 13:55] LABS: ALT 24 U/L (4-49); AST 24 U/L (17-59); African American GFR (CKD) 12 (>60 ml/min/1.73 sqM); Alkaline Phosphatase 93 U/L (38-126); Anion Gap 13 mmol/L; Blood Urea Nitrogen 47 mg/dL (9-20); Calcium 8.3 mg/dL (8.4-10.2); Carbon Dioxide 25 mmol/L (22-30); Chloride 98 mmol/L (98-107); Glucose 176 mg/dL (74-99); Magnesium 1.4 mg/dL (1.6-2.3); Non-African American GFR(CKD) 11 (>60 ml/min/1.73 sqM); Potassium 4.1 mmol/L (3.5-5.1); Sodium 136 mmol/L (137-145); Total Bilirubin 0.9 mg/dL (0.2-1.3); Total Protein 6.8 g/dL (6.3-8.2)
[2024-10-19 14:00] LABS: NT-Pro-B-Type Natriuretic Pept 1300 pg/mL
[2024-10-19] MEDS: MORPHINE SULFATE 2 MG/ML SYRINGE IVP STA (14:29)
[2024-10-19 15:18] VITALS: BP 141/98; PULSE 90
== END 2024-10-19 15:17 | disposition left against medical advice (07) ==
LOC: EC 12:42
DX: R07.89 Other chest pain (principal); Z53.29 Procedure and treatment not carried out because of patient's decision for other reasons; Z87.891 Personal history of nicotine dependence
CPT/HCPCS: 36415; 93005; 83880; 80053; 83735; 84484; 85025; 85610; 85730; 71046; 99285; 96374; J2270